=== PATIENT | female | born 1970 | race Caucasian/White ===

== ENCOUNTER 2017-03-06 16:52 | Emergency (ER) | payer MEDICARE, MEDICAID, SELFPAY | END 2017-03-06 17:55 | disposition home or self-care (01) | PROVIDERS: Emergency Provider Nurse Practitioner Family; Family Provider Family Medicine; Visit Provider Nurse Practitioner Family | DX: E11.42 Type 2 diabetes mellitus with diabetic polyneuropathy (principal); Z79.4 Long term (current) use of insulin; I10 Essential (primary) hypertension; F17.210 Nicotine dependence, cigarettes, uncomplicated | CPT/HCPCS: 99201 ==

== ENCOUNTER → 2017-10-26 08:20 | Outpatient (CLI) | payer MEDICARE, MEDICAID, SELFPAY ==
[2017-10-26 09:48] LABS: Hemoglobin A1C 9.4 % (0.0-7.0)
[2017-10-26 10:23] LABS: Alanine Aminotransferase 24 U/L (12-78); Albumin/Globulin Ratio 0.9 (1.1-1.8); Alkaline Phosphatase 140 U/L (46-116); Anion Gap 9.9 mEq/L (5-15); Aspartate Amino Transferase 17 U/L (15-37); Bilirubin,Total 0.4 mg/dL (0.2-1.0); Blood Urea Nitrogen 6 mg/dL (7-18); Calcium 8.6 mg/dL (8.5-10.1); Carbon Dioxide 32 mmol/L (21.0-32.0); Chloride 100 mmol/L (98-107); Cholesterol 161 mg/dL (140-200); Creatinine,Serum 0.89 mg/dL (0.55-1.02); Estimated Glomerular Filt Rate 69 ml/min (>60); GFR (African American) 83 ML/MIN (>60); Globulin 3.5 gm/dl (1.3-3.2); Glucose 300 mg/dL (74-106); HDL Cholesterol 27 mg/dL (29-89); LDL Cholesterol 107 mg/dL (0-130); Potassium 3.9 mmoL/L (3.5-5.1); Sodium 138 mmol/L (136-145); Thyroid Stimulating Hormone 3.15 uIU/ml (0.358-3.740); Total Protein,Serum 6.5 gm/dL (6.4-8.2); Triglycerides 135 mg/dL (30-200); VLDL Cholesterol 27 mg/dL (0-40)
== END ==
PROVIDERS: Visit Provider Physician Assistant
DX: E11.42 Type 2 diabetes mellitus with diabetic polyneuropathy (principal); Z13.29 Encounter for screening for other suspected endocrine disorder; I10 Essential (primary) hypertension; E78.2 Mixed hyperlipidemia
CPT/HCPCS: 36415; 80053; 80061; 83036; 84443

== ENCOUNTER → 2017-12-12 13:18 | Outpatient (CLI) | payer MEDICARE, MEDICAID, SELFPAY ==
--- NOTE | 2017-12-12 | CA_ITS ---
PROCEDURE: 2-D M-mode and color Doppler study INDICATIONS FOR THE TEST: Chest pain COPD Heart Murmur Tobacco Smoking+ Palpitations Fatigue Syncope Edema+ Hypertension+Diabetes Mellitus+ Rheumatic Fever SOB POOLE Obesity Hyperlipidemia+ Family History HD+ Additional History PATIENT INFORMATION HEIGHT: 55 WEIGHT: 146 GENDER: Female B/P: 130/70 2-D/M-MODE INTERPRETATION: 2-D MEASUREMENTS OBSERVED VALUES IN CMS Right Ventricular Dimension (RVDd) 2.5 Interventricular Septum (Thickness)(IVsd) 0.8 Left Ventricular Internal Dimensions(LVIDd) 5.8 Left Ventricular Posterior Wall (Thickness)(LVPWd) 0.6 Aortic Root 2.7 Aortic Cusp Separation 2.0 Left Atrial Dimensions (LAD) 4.2 2D 1. Left atrium is moderately enlarged, left ventricle is moderately dilated, there is severely reduced left ventricular systolic function, visually estimated ejection fraction approximately 20-25%, mildly inferolateral and posterolateral wall contractility is minimally, rest of the myocardial segments are markedly hypokinetic. 2. The right atrium and right ventricle are mildly enlarged with mild reduced contractility. 3. The aortic valve is minimally thickened and fibrosed. 4. The mitral and tricuspid valve leaflets are minimally thickened. 5. The pulmonic valve is poorly visualized. 6. No significant pericardial effusion noted. DOPPLER INTERROGATION: Doppler interrogation of the aortic, mitral and tricuspid valvular presence of moderate to severe mitral and severe tricuspid regurgitation, calculated right ventricular systolic pressure is 73 mmHg consistent with severe pulmonary hypertension, Doppler evidence of low cardiac output state seen, there is tall E wave with restrictive filling pattern suggestive of raised left ventricular end-diastolic pressure. CONCLUSION: 1. Moderately dilated left ventricle, severely reduced left ventricular systolic function, visually estimated ejection fraction approximately 20-25% with segmental wall motion abnormality described above. Doppler evidence of raised left ventricular end-diastolic pressure and low cardiac output state seen. 2. Moderate to severe mitral and severe tricuspid regurgitation, calculated right ventricular systolic pressure 73 mmHg consistent with severe pulmonary hypertension. 3. No significant pericardial effusion noted.
--- NOTE | 2017-12-12 13:27 | XR_ITS ---
XR chest 2V HISTORY: ITS.REASON: EDEMA ORDERING PHYSICIAN: Hugh Maldonado MD PATIENT AGE: 47 years COMPARISON: 04/09/2015 FINDINGS: There is cardiomegaly with mild pulmonary venous congestion consistent with mild CHF. Small right pleural effusion. Consolidation is present in the right lung base consistent with pneumonia. The left lung is clear. No acute bony anomalies. IMPRESSION: 1. CHF. 2. Right lower lobe pneumonia with small right effusion Significant findings called to Louann in Dr. Maldoando's office on 12/13/2017 11:48 AM.
== END ==
PROVIDERS: PCP Family Medicine; Visit Provider Family Medicine
DX: R60.1 Generalized edema (principal)
CPT/HCPCS: 71046; 93306

== ENCOUNTER → 2017-12-21 12:26 | Outpatient (CLI) | payer MEDICARE, MEDICAID, SELFPAY ==
[2017-12-21 15:21] LABS: Anion Gap 10.4 mEq/L (5-15); Blood Urea Nitrogen 10 mg/dL (7-18); Calcium 8.9 mg/dL (8.5-10.1); Carbon Dioxide 34 mmol/L (21.0-32.0); Chloride 96 mmol/L (98-107); Creatinine,Serum 0.91 mg/dL (0.55-1.02); Estimated Glomerular Filt Rate 67 ml/min (>60); GFR (African American) 81 ML/MIN (>60); Glucose 280 mg/dL (74-106); Potassium 3.4 mmoL/L (3.5-5.1); Sodium 137 mmol/L (136-145)
== END ==
PROVIDERS: PCP Family Medicine; Visit Provider Physician Assistant
DX: I42.9 Cardiomyopathy, unspecified (principal); I50.9 Heart failure, unspecified
CPT/HCPCS: 36415; 80048; 83880

== ENCOUNTER → 2018-01-12 12:17 | Outpatient (CLI) | payer MEDICARE, MEDICAID, SELFPAY ==
[2018-01-12 13:34] LABS: Anion Gap 10.7 mEq/L (5-15); Blood Urea Nitrogen 21 mg/dL (7-18); Calcium 9.4 mg/dL (8.5-10.1); Carbon Dioxide 31 mmol/L (21.0-32.0); Chloride 101 mmol/L (98-107); Creatinine,Serum 0.84 mg/dL (0.55-1.02); Estimated Glomerular Filt Rate 73 ml/min (>60); GFR (African American) 89 ML/MIN (>60); Glucose 267 mg/dL (74-106); Potassium 3.7 mmoL/L (3.5-5.1); Sodium 139 mmol/L (136-145)
== END ==
PROVIDERS: PCP Family Medicine; Visit Provider Internal Medicine Cardiovascular Disease
DX: I10 Essential (primary) hypertension (principal); I25.10 Atherosclerotic heart disease of native coronary artery without angina pectoris
CPT/HCPCS: 36415; 80048

== ENCOUNTER → 2018-02-26 13:13 | Outpatient (CLI) | payer MEDICARE, MEDICAID, SELFPAY ==
[2018-02-26 14:38] LABS: Anion Gap 12.9 mEq/L (5-15); Blood Urea Nitrogen 9 mg/dL (7-18); Carbon Dioxide 31 mmol/L (21.0-32.0); Chloride 98 mmol/L (98-107); Estimated Glomerular Filt Rate 54 ml/min (>60); GFR (African American) 65 ML/MIN (>60); Glucose 254 mg/dL (74-106); Potassium 3.9 mmoL/L (3.5-5.1); Sodium 138 mmol/L (136-145)
== END ==
PROVIDERS: Visit Provider Internal Medicine Cardiovascular Disease
DX: E11.9 Type 2 diabetes mellitus without complications (principal); E78.5 Hyperlipidemia, unspecified; I07.1 Rheumatic tricuspid insufficiency; I10 Essential (primary) hypertension; I25.10 Atherosclerotic heart disease of native coronary artery without angina pectoris; I25.5 Ischemic cardiomyopathy; I27.20 Pulmonary hypertension, unspecified; I34.0 Nonrheumatic mitral (valve) insufficiency; Z95.5 Presence of coronary angioplasty implant and graft
CPT/HCPCS: 36415; 80048

== ENCOUNTER → 2018-04-06 08:41 | Outpatient (CLI) | payer MEDICARE, SELFPAY ==
--- NOTE | 2018-04-06 08:44 | CA_ITS ---
PROCEDURE: 2-D M-mode and color Doppler study INDICATIONS FOR THE TEST: Chest pain COPD Heart Murmur Tobacco SmokingEX Palpitations Fatigue Syncope Edema HypertensionXDiabetes MellitusX Rheumatic Fever SOB POOLE Obesity HyperlipidemiaX Family History HD Additional History CM,CAD,PHTN PATIENT INFORMATION HEIGHT: 65 WEIGHT:136 GENDER: Female B/P:105/69 2-D/M-MODE INTERPRETATION: 2-D MEASUREMENTS OBSERVED VALUES IN CMS Right Ventricular Dimension (RVDd) 1.8 Interventricular Septum (Thickness)(IVsd) .7 Left Ventricular Internal Dimensions(LVIDd) 5.6 Left Ventricular Posterior Wall (Thickness)(LVPWd) .7 Aortic Root 3.1 Aortic Cusp Separation 1.8 Left Atrial Dimensions (LAD) 2.3 2D 1. Left atrium is mildly enlarged, left ventricle is normal size, mild concentric left ventricular hypertrophy, visually estimated ejection fraction 40-45%, there is abnormal septal motion. 2. The right atrium and right ventricle are normal size and contractility. 3. The aortic valve is minimally thickened and fibrosed. 4. Mitral and tricuspid valve leaflets are minimally thickened. 5. The pulmonic valve is poorly present. 6. No significant pericardial effusion noted. DOPPLER INTERROGATION: Doppler interrogation of the aortic, mitral and tricuspid valvular presence of mild mitral and tricuspid regurgitation, calculated right ventricular systolic pressure 38 mmHg consistent with mild pulmonary hypertension, grade 1 diastolic dysfunction seen without tissue Doppler evidence of raised left atrial pressure. CONCLUSION: 1. Mildly enlarged left atrium, normal left ventricular size, mild concentric left ventricular hypertrophy, visually estimated ejection fraction 40-45%, there is abnormal septal motion. Grade 1 diastolic dysfunction seen without tissue Doppler evidence of raised left atrial pressure. 2. Mild mitral and tricuspid regurgitation, calculated right ventricular systolic pressure 38 mmHg consistent with mild pulmonary hypertension. 3. No significant pericardial effusion noted.
== END ==
PROVIDERS: PCP Family Medicine; Visit Provider Internal Medicine Cardiovascular Disease
DX: I25.5 Ischemic cardiomyopathy (principal)
CPT/HCPCS: 93306

== ENCOUNTER 2018-10-02 22:53 | Inpatient (IN) ==
[2018-10-02 23:21] LABS: Basophils # 0.1 K/mm3 (0-0.2); Basophils % 0.3 % (0.1-2.0); Eosinophils % 0.2 % (0.1-12.0); Hematocrit 36.6 % (37.0-47.0); Hemoglobin 11.8 g/dL (12.2-16.2); Lymphocytes # 1.4 K/mm3 (0.7-4.5); Lymphocytes % 5.4 % (10-50); Mean Corpuscular HGB Conc 32.2 g/dL (31.8-35.4); Mean Corpuscular Volume 87.7 fl (81-99); Monocytes # 1.7 K/mm3 (0.1-1.0); Monocytes % 6.5 % (1.7-9.3); Neutrophils # 23.1 K/mm3 (1.8-7.8); Neutrophils % 87.7 % (37.0-80.0); Platelet Count 280 K/mm3 (142-424); Red Blood Count 4.17 M/mm3 (4.20-5.40); Red Cell Distribution Width 12.7 % (11.5-17.5); White Blood Count 26.4 K/mm3 (4.8-10.8)
[2018-10-02 23:36] LABS: Anion Gap 15.5 mEq/L (5-15); Calcium 8.6 mg/dL (8.5-10.1)
[2018-10-02 23:53] LABS: Lymphocytes % 8 % (10-50); Monocytes % 1 % (2-9); Neutrophils % 91 % (42-76); RBC Morphology Normal; Total Cells Counted 100
--- NOTE | 2018-10-03 00:07 | Emergency Department Note ---
ED Disposition Clinical Impression: Left shift, Hyponatremia, Type 1 diabetes mellitus with hyperglycemia, Non- compliant patient, Acute urinary tract infection Sepsis Qualifiers: Sepsis type: sepsis due to unspecified organism Qualified Code(s): A41.9 - Sepsis, unspecified organism Fever Qualifiers: Fever type: unspecified Qualified Code(s): R50.9 - Fever, unspecified Leukocytosis Qualifiers: Leukocytosis type: unspecified Qualified Code(s): D72.829 - Elevated white blood cell count, unspecified Disposition: Admitted As Inpatient Condition on Discharge: Fair (Stable) Referrals: Hugh Maldonado MD [Primary Care Provider] - Time of Disposition: :59 - Critical Care Critical Care Time: No Attestation: On 10/02/18, the high probability of a clinically significant, sudden or life threatening deterioration of the following system(s) required my full and direct attention, intervention and personal management. The time I documented below is in addition to time spent performing reported procedures but includes the following listed in this critical care notation. Medical Decision Making - Medical Records Medical records reviewed: Yes: I reviewed the patient's medical records. - [place] Inquiry Pt receiving controlled substance: No Edinson was queried for this patient: No Vital Signs: 10/02/18 22:55 10/02/18 23:24 10/02/18 23:54 Temperature 101.5 F H Temperature Source Oral Pulse Rate [Right Brachial] 127 H 121 H 115 H Respiratory Rate 17 Blood Pressure [Right Arm] 113/63 115/72 120/65 Blood Pressure Mean [Right Arm] 79 86 83 Blood Pressure Source [Right Arm] Automatic Cuff Automatic Cuff Automatic Cuff Blood Pressure Position [Right Arm] Sitting Sitting Sitting 02 Sat by Pulse Oximetry 95 Oxygen Delivery Method Room Air 10/03/18 00:15 10/03/18 00:24 10/03/18 00:30 Temperature Temperature Source Pulse Rate [Right Brachial] 114 H 117 H 117 H Respiratory Rate 18 Blood Pressure [Right Arm] 117/49 L 122/60 124/53 L Blood Pressure Mean [Right Arm] 71 80 76 Blood Pressure Source [Right Arm] Automatic Cuff Automatic Cuff Automatic Cuff Blood Pressure Position [Right Arm] Sitting Sitting Sitting 02 Sat by Pulse Oximetry 96 Oxygen Delivery Method Room Air 10/03/18 00:54 10/03/18 01:28 10/03/18 01:46 Temperature Temperature Source Pulse Rate [Right Brachial] 108 H 102 H 101 H Respiratory Rate 18 Blood Pressure [Right Arm] 102/54 L 90/47 L 97/50 L Blood Pressure Mean [Right Arm] 70 61 65 Blood Pressure Source [Right Arm] Automatic Cuff Automatic Cuff Automatic Cuff Blood Pressure Position [Right Arm] Sitting Sitting Sitting 02 Sat by Pulse Oximetry Oxygen Delivery Method Room Air 10/03/18 01:53 Temperature 99.6 F Temperature Source Oral Pulse Rate [Right Brachial] Respiratory Rate Blood Pressure [Right Arm] Blood Pressure Mean [Right Arm] Blood Pressure Source [Right Arm] Blood Pressure Position [Right Arm] 02 Sat by Pulse Oximetry Oxygen Delivery Method - Lab Data Lab results reviewed: Yes: I reviewed the patient's lab results. Lab Results 10/02/18 23:08: WBC 26.4 H*, RBC 4.17 L, Hgb 11.8 L, Hct 36.6 L, MCV 87.7, MCH 28.3, MCHC 32.2, RDW 12.7, Plt Count 280, MPV 8.0, Neut % (Auto) 87.7 H, Lymph % (Auto) 5.4 L, [facility] % (Auto) 6.5, Eos % (Auto) 0.2, Baso % (Auto) 0.3, Neut # (Auto) 23.1 H, Lymph # (Auto) 1.4, [facility] [facility] # (Auto) 1.7 H, Eos # (Auto) 0.0, Baso # (Auto) 0.1, Total Counted 100, Neutrophils % (Manual) 91 H, Lymphocytes % (Manual) 8 L, Monocytes % (Manual) 1 L, Platelet Estimate Normal, RBC Morphology Normal 10/02/18 23:08: Sodium 123 L, Potassium 3.5, Chloride 88 L, Carbon Dioxide 23, Anion Gap 15.5 H, BUN 16, Creatinine 2.07 H, Estimated Creat Clear 36, Estimated GFR 26 L, Est GFR ( Amer) 31 L, Glucose 550 H*, Calcium 8.6 10/02/18 23:08: Lactate 2.6 H 10/02/18 23:08: Troponin I < 0.02 10/03/18 00:00: Acetone Level None detected 10/03/18 00:25: Urine Color Yellow, Urine Appearance Clear, Urine pH 6.0, Ur Specific [place] 1.010, Urine Protein 2+, Urine Glucose (UA) 3+, Urine Ketones Negative, Urine Blood 2+, Urine Nitrate Negative, Urine Bilirubin Negative, Urine Urobilinogen 1.0, Ur Leukocyte Esterase 1+ A Result diagrams: 10/02/18 23:08 10/02/18 23:08 Orders (Tests/Meds): ED MEDICATIONS Generic Name Dose Route Start Last Admin Trade Name Nati PRN Reason Stop Dose Admin Sodium Chloride 1,000 mls @ 999 mls/hr 10/02/18 23:15 10/02/18 23:24 Sod Chlor 0.9% 1000ml Bag IV 10/03/18 00:15 999 mls/hr .Q1H1M QUEENIE Administration Vancomycin HCl 1,000 mg/ 250 mls @ 125 mls/hr 10/03/18 00:17 10/03/18 00:30 Sodium Chloride IV 10/03/18 02:16 125 mls/hr ONCE ONE Administration Piperacillin Sod/Tazobactam 50 mls @ 100 mls/hr 10/03/18 00:30 10/03/18 00:43 Sod 3.375 gm/ Sodium Chloride IV 10/17/18 00:29 100 mls/hr Q8H QUEENIE Administration Protocol Sodium Chloride 2,040 mls @ 1,020 mls/hr 10/03/18 00:19 10/03/18 00:35 Sod Chlor 0.9% 1000ml Bag 30 ml/kg infuse over 2 hr (2040 ml) 10/03/18 02:18 1,020 mls/hr IV Administration .Q2H ONE Protocol Discontinued Medications Generic Name Dose Route Start Last Admin Trade Name Nati PRN Reason Stop Dose Admin Acetaminophen 650 mg 10/03/18 00:05 10/03/18 00:10 Acetaminophen 325mg Tab PO 10/03/18 00:06 650 mg ONCE ONE Administration Insulin Human Regular 14 unit 10/03/18 00:07 10/03/18 00:10 Humulin R Insulin 100 Units/Ml 10ml Vial IVP 10/03/18 00:08 14 unit ONCE ONE Administration ORDERS Category Date Time Status CT head/brain wo con Stat Cat Scan 10/02/18 23:17 Taken CXR 2 view (NOT portable) [XR chest 2V] Stat Exams 10/02/18 23:29 Taken Procalcitonin Routine Lab 10/03/18 00:00 Received Troponin I Stat Lab 10/03/18 01:40 Received UA [Urinalysis and Microscopic] Stat Lab 10/03/18 00:25 Results Blood Culture Stat Micro 10/02/18 23:08 Received Urine Culture Stat Micro 10/03/18 00:29 Received - Radiology Data #1 Image(s): Chest Image Reviewed: Yes I reviewed the patient's radiology image Preliminary Findings: No Infiltrates Seen, Normal Heart Size No free air. - CT Data CT Scan: Head Time Received: 23:[address] Reviewed: Yes: I have viewed the radiologist's interpretation Preliminary Findings: Normal Lung Inflation Dick Findings Narrative: No acute intracranial abnormality. - ECG Data Tracing #1 I reviewed this ECG and interpreted as documented below: (EKG at 22:56 shows sinus tachycardia at 123 BPM, LAFB, LVH and septal infarct (age undetermined).) Medical Decision Narrative: 00:20 Pt evaluated. EKG and CXR reviewed. CT head w/o contrast ordered and report is pending. Glucose 550 mg/dl so Regular insulin 14 units IV ordered. WBC >25K and pt is tachycardic. Sepsis 30 ml/kg IV fluid bolus ordered and infusing. UA pending. Tylenol 650 mg PO ordered. Troponin added. Vancomycin 1 gm IVPB and Zosyn 3.375 gm IVPB ordered. Pt will need to be admitted. Pt and daughter aware. All questions answered at this point. 01:49 All labs, EKG, CXR, CT head report reviewed. Glucose improving. UA LE positive. BC x 2 and UC pending. Case discussed with Dr. Mallory and he has agreed to admit pt. I have discussed results of work up, diagnosis and care plan with pt and daughter. They understand, agree and all questions answered. General Adult HPI - General Chief complaint: Altered Mental Status Stated complaint: AMS Time Seen by Provider: 10/02/18 23:57 Mode of Arrival: Ambulatory Source of Information: Patient, Relative (daughter) Limitations: No Limitations Description of Symptoms (Recalled from ER Triage Doc. by RN): Daughter believed she was was having stroke symptoms; daughter states she "is confused on what she is trying to say.' Stated the pt has a hx of a CVA. Stated symptoms believed to have started last night. Pt believes she had a fever today and is a type II dm. Hx of Medrano's Palsy. - History of Present Illness HPI narrative: Pt is here in the ER from home via POV with daughter for evaluation c/o fever, malaise, decreased appetite. Daughter concerned she may have been slurring her words. Pt has a history of clotting disorder, PVD, IDDM, noncompliance with diet and medicines. She denies having headache, chest pain, sob, abdominal pain, nausea, vomiting, diarrhea. Pt did take usual home morning meds. She had not been following a diabetic diet. Pt apparently has an appt with PCP tomorrow as she thinks she may have a "kidney infection". - Related Data Home Medications Medication Instructions Recorded Confirmed Amitriptyline HCl 100 mg PO DAILY 10/22/17 10/02/18 Gabapentin [Gabapentin 400mg Cap] 600 mg PO TID 10/22/17 10/02/18 Glimepiride [Amaryl] 4 mg PO DAILY 10/22/17 10/02/18 Insulin Lispro [Humalog] 4 unit SQ DAILY 10/22/17 10/02/18 Aspirin [Aspirin 81mg chewable 81 mg PO DAILY 10/02/18 10/02/18 tab] Clopidogrel Bisulfate [Plavix 75mg 75 mg PO DAILY 10/02/18 10/02/18 Tab] Insulin Glargine,Hum.rec.anlog 8 unit SQ DAILY 10/02/18 10/02/18 [Lantus Insulin 100units/mL 10mL vial] Lisinopril [Lisinopril 2.5mg Tab] 2.5 mg PO QHS 10/02/18 10/02/18 Metoprolol Succinate 50 mg PO DAILY 10/02/18 10/02/18 Potassium 20 meq PO DAILY 10/02/18 10/02/18 Previous Rx's Medication Instructions Recorded atorvastatin 10 mg tablet 10 mg PO DAILY #30 tab 04/02/18 Allergies Allergy/AdvReac Type Severity Reaction Status Date / Time No Known Allergies Allergy Verified 10/02/18 23:01 [facility] History - Hepatitis A Screen Drug use history?: No High risk sexual behaviors?: No History of sexually transmitted infection?: No Currently employed?: No Childcare worker?: No Do you have indoor plumbing?: Yes Do you have electricity?: Yes Attestation statement:: This patient has been screened for Hepatitis A risk factors. I have reviewed the patient's past medical history: Yes Medical History: Reports:: Cerebrovascular Accident, Diabetes Mellitus Type 2 Denies:: Cancer, Diabetes Mellitus Type 1, Internal Pacemaker, MRSA, Seizures Other Surgeries: Yes: Cardiac Catheterization, Cholecystectomy, Coronary Stent, Tubal Ligation. 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.) Fractures: No Comment: Oral Sx - Social History Educational Level: Completed High School Smoking Status: Current every day smoker Tobacco Type: cigarettes # Packs/Day (cigarettes): 1 Alcohol Intake: never Substance Use Type: denies use Occupational Status: disabled Housing: house Family Hx:: Coronary Artery Disease, Heart Attack Comment: Mother- of [place] at 66 ROS Obtained: Yes All systems reviewed & no additional complaints - Constitutional Constitutional: Reports system reviewed and no additional complaints, except as docu, Reports as per HPI, Reports fever(s), Reports malaise - Eyes Eyes: Reports system reviewed and no additional complaints, except as docu - ENT Ears, Nose, Mouth, and Throat: Reports system reviewed and no additional complaints, except as docu - Cardiovascular Cardiovascular: Reports system reviewed and no additional complaints, except as docu, Reports as per HPI, Denies chest pain, Denies diaphoresis, Denies dyspnea, Denies leg edema - Respiratory Respiratory: Yes system reviewed and no additional complaints, except as docu, Yes as per HPI, No cough, No dyspnea, No dyspnea on exertion - Gastrointestinal Gastrointestingal: Reports: system reviewed and no additional complaints, except as docu, as per HPI. Denies: abdominal pain, constipation, diarrhea, nausea, vomiting - Genitourinary Female Genitourinary: Reports system reviewed and no additional complaints, except as docu, Reports as per HPI, Reports dysuria, Denies flank pain, Reports urinary frequency - Musculoskeletal Musculoskeletal: Reports system reviewed and no additional complaints, except as docu - Integumentary/Breasts Skin/Breast: Reports system reviewed and no additional complaints, except as docu - Neurologic Neurologic: Reports system reviewed and no additional complaints, except as docu, Reports as per HPI, Reports abnormal speech (Daughter says speech was slurred. No aphasia or dysarthria.), Denies unsteadiness, Denies dizziness, Denies focal weakness, Reports other (history of old ischemic stroke without sequelae) - Endocrine Endocrine: Reports system reviewed and no additional complaints, except as docu - Hematologic/Lymphatic Henatologic/Lymphatic: Reports system reviewed and no additional complaints, except as docu - Allergic/Immunologic Allergic/Immunologic: Reports system reviewed and no additional complaints, except as docu Physical Exam - General General appearance: alert, in no apparent distress - Head Head exam: atraumatic, normocephalic - Eye Eye exam: Present: PERRL, EOMI - ENT ENT exam: Present: normal oropharynx, mucous membranes moist - Neck Neck exam: Present: trachea midline - Chest Chest inspection: Present: normal inspection, symmetric chest wall rise - Respiratory Respiratory exam: Present: normal lung sounds bilaterally. Absent: respiratory distress, wheezes, stridor - Cardiovascular Cardiovascular exam: Present: tachycardia, normal heart sounds. Absent: systolic murmur, rubs, gallop, clicks, JVD - Abdominal Exam Abdominal exam: Present: soft, normal bowel sounds. Absent: tenderness, guarding, rebound - Extremities Exam Extremities exam: Present: full ROM, normal capillary refill, other (Right great toe amputation, old.). Absent: pedal edema - Back Exam Back exam: Absent: CVA tenderness (R), CVA tenderness (L), paraspinal tenderness, vertebral tenderness - Neurological Exam Neurological exam: Present: alert, oriented X3, CN II-XII intact - Psychiatric Psychiatric exam: Present: normal affect, normal mood - Skin Skin exam: Present: warm, dry, intact, normal color. Absent: rash
[2018-10-03 01:23] LABS: Microscopic, Urine URINE MICROSCOPIC (MICROSCOPIC)
[2018-10-03 01:26] LABS: Appearance,Urine CLEAR (Clear); Bilirubin,Urine Negative (Negative); Blood, Urine 2+ (Negative); Color,Urine YELLOW (Yellow); Glucose,Urine (UA) 3+ (Negative); Ketones,Urine Negative (Negative); Leukocyte Esterase,Urine 1+ (Negative); Protein,Urine 2+ (Negative)
[2018-10-03 01:58] LABS: WBC,Urine 20-50 #/hpf (0-3)
[2018-10-03 01:59] LABS: Amorphous Sediment,Urine 1+ /lpf; Bacteria,Urine 2+ /lpf; Mucus,Urine 2+ /lpf
[2018-10-03 07:38] LABS: Basophils # 0.1 K/mm3 (0-0.2); Basophils % 0.3 % (0.1-2.0); Eosinophils % 0.1 % (0.1-12.0); Hematocrit 33.4 % (37.0-47.0); Hemoglobin 10.8 g/dL (12.2-16.2); Lymphocytes # 1.2 K/mm3 (0.7-4.5); Lymphocytes % 5.3 % (10-50); Mean Corpuscular HGB Conc 32.4 g/dL (31.8-35.4); Mean Corpuscular Volume 88.7 fl (81-99); Mean Platelet Volume 7.6 fl (7.4-10.4); Monocytes # 1.2 K/mm3 (0.1-1.0); Monocytes % 5.7 % (1.7-9.3); Neutrophils # 19.2 K/mm3 (1.8-7.8); Neutrophils % 88.5 % (37.0-80.0); Platelet Count 233 K/mm3 (142-424); Red Blood Count 3.77 M/mm3 (4.20-5.40); Red Cell Distribution Width 12.7 % (11.5-17.5); White Blood Count 21.7 K/mm3 (4.8-10.8)
--- NOTE | 2018-10-03 07:43 | Pharmacy Consult Notes ---
[facility] Pharmacy VTE Monitoring - Patient Demographics Admission date: 10/03/18 Report Date: 10/03/18 Time: 07:31 Allergies/Adverse Reactions: Patient Allergies No Known Allergies Allergy (Verified 10/02/18 23:01) Height: 1.65 m Weight: 63.191 kg Patient Problems: Current Active Problems (Updated 10/03/18 @ 01:59 by Yoel Mckeon III DO) Sepsis (Acute) Fever (Acute) Leukocytosis (Acute) Left shift (Acute) Hyponatremia (Acute) Type 1 diabetes mellitus with hyperglycemia (Acute) Non-compliant patient (Acute) Acute urinary tract infection (Acute) - VTE Risk Labs: VTE Related Lab Results Hgb 11.8 g/dL (12.2-16.2) L 10/02/18 23:08 Hct 36.6 % (37.0-47.0) L 10/02/18 23:08 Plt Count 280 K/mm3 (142-424) 10/02/18 23:08 BUN 16 mg/dL (7-18) 10/02/18 23:08 Creatinine 2.07 mg/dL (0.55-1.02) H 10/02/18 23:08 Estimated Creat Clear 36 mL/min (50-200) 10/02/18 23:08 Was VTE Risk Assessment Performed: Yes VTE Score: 5 VTE Risk Level: Low Risk Clinical Trial Participant: No - Prophylaxis VTE Prophylaxis Ordered?: Yes Types of VTE Prophylaxis: TEDS Knee High
[2018-10-03 07:45] LABS: Albumin/Globulin Ratio 0.5 (1.1-1.8); Anion Gap 13.2 mEq/L (5-15); Bilirubin,Total 0.8 mg/dL (0.2-1.0); Calcium 7.9 mg/dL (8.5-10.1)
--- NOTE | 2018-10-03 08:17 | History & Physical Report ---
*Admission Date: 10/03/18 *Chief complaint: Low back pain and confusion *History of present illness: Ms. Marinelli is a 48-year-old female with a history of CVA, migraines, type 2 diabetes, history of sepsis due to osteomyelitis of toe, and hypertension who began having low back pain approximately 2 days ago. Her daughter states she seemed confused and aggravated. They were worried she was having another stroke, therefore they made her come to the emergency room. In the ER, her white blood cell count was found to be 26.4 and her lactic acid was elevated. Her sodium and chloride were low, her renal function was elevated, and her glucose was over 500 but no acetone was detected. She was admitted with a d iagnosis of sepsis and leukocytosis. This a.m. she states she does feel better. Her back pain has resolved. Her daughter states her mental status seems to be better today. [facility] History I have reviewed the patient's past medical history: Yes Medical History: Reports:: Coronary Artery Disease, Cerebrovascular Accident, Diabetes Mellitus Type 2, Hyperlipidemia, Hypertension, Peripheral Vascular Disease Denies:: Cancer, Diabetes Mellitus Type 1, Internal Pacemaker, MRSA, Seizures *Have you ever received a pneumonia vaccine?: No *Have you received a flu vaccine this season?: No Other Surgeries: Yes: Cardiac Catheterization, Cholecystectomy, Coronary Stent, Tubal Ligation. 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.) Fractures: No - *Social History Educational Level: Completed High School Smoking Status: Current every day smoker Tobacco Type: cigarettes # Packs/Day (cigarettes): 1 Alcohol Intake: never Substance Use Type: denies use *Occupational Status:: disabled Housing: house Household Members: children *Travel in the last 8 weeks: None - Psychiatric History Expresses thoughts of harming self/others: None, Vague Suicide Plan Description: No Plan Family Hx:: Asthma, Coronary Artery Disease, Diabetes, Heart Attack Review of Systems - Constitutional Reports chills, Reports fever(s), Reports weakness - Eyes Denies blurry vision, Denies double vision - ENT Reports nasal congestion, Denies sore throat - *Cardiovascular Denies chest pain, Denies shortness of breath, Denies rapid, pounding, or i rregular heartbeat - *Respiratory Denies cough, Denies shortness of breath - *Gastrointestinal Denies abdominal pain, Denies loose stools, Denies nausea, Denies vomiting - *Genitourinary Denies difficulty urinating, Denies painful urination - *Musculoskeletal Reports back pain (has resolvd), Denies joint pain - *Neurologic Reports abnormal speech (Daughter says speech was slurred. No aphasia or dysarthria.), Reports headache(s), Reports weakness, Reports other (history of old ischemic stroke without sequelae), Denies unsteadiness, Denies dizziness, Denies localized weakness, Denies dizziness Meds Home Medications Medication Instructions Recorded Confirmed Type Amitriptyline HCl 100 mg PO DAILY 10/22/17 10/02/18 History Gabapentin [Gabapentin 400mg Cap] 600 mg PO TID 10/22/17 10/02/18 History Glimepiride [Amaryl] 4 mg PO DAILY 10/22/17 10/02/18 History Insulin Lispro [Humalog] 4 unit SQ DAILY 10/22/17 10/02/18 History atorvastatin 10 mg tablet 10 mg PO DAILY #30 tab 04/02/18 10/02/18 Rx Aspirin [Aspirin 81mg chewable 81 mg PO DAILY 10/02/18 10/02/18 History tab] Clopidogrel Bisulfate [Plavix 75mg 75 mg PO DAILY 10/02/18 10/02/18 History Tab] Insulin Glargine,Hum.rec.anlog 8 unit SQ DAILY 10/02/18 10/02/18 History [Lantus Insulin 100units/mL 10mL vial] Lisinopril [Lisinopril 2.5mg Tab] 2.5 mg PO QHS 10/02/18 10/02/18 History Metoprolol Succinate 50 mg PO DAILY 10/02/18 10/02/18 History Potassium 20 meq PO DAILY 10/02/18 10/02/18 History Allergies Allergy/AdvReac Type Severity Reaction Status Date / Time No Known Allergies Allergy Verified 10/02/18 23:01 Exam Vital signs and Labs for Last 24 Hours: Temp Pulse Resp BP Pulse Ox 99.1 F 108 H 20 110/59 L 94 L 10/03/18 07:51 10/03/18 07:51 10/03/18 07:51 10/03/18 07:51 10/03/18 07:51 Laboratory Results - last 24 hr 10/02/18 23:08: WBC 26.4 H*, RBC 4.17 L, Hgb 11.8 L, Hct 36.6 L, MCV 87.7, MCH 28.3, MCHC 32.2, RDW 12.7, Plt Count 280, MPV 8.0, Neut % (Auto) 87.7 H, Lymph % (Auto) 5.4 L, [place] % (Auto) 6.5, Eos % (Auto) 0.2, Baso % (Auto) 0.3, Neut # (Auto) 23.1 H, Lymph # (Auto) 1.4, [place] # (Auto) 1.7 H, Eos # (Auto) 0.0, Baso # (Auto) 0.1, Total Counted 100, Neutrophils % (Manual) 91 H, Lymphocytes % (Manual) 8 L, Monocytes % (Manual) 1 L, Platelet Estimate Normal, RBC Morphology Normal 10/02/18 23:08: Sodium 123 L, Potassium 3.5, Chloride 88 L, Carbon Dioxide 23, Anion Gap 15.5 H, BUN 16, Creatinine 2.07 H, Estimated Creat Clear 36, Estimated GFR 26 L, Est GFR ( Amer) 31 L, Glucose 550 H*, Calcium 8.6 10/02/18 23:08: Lactate 2.6 H 10/02/18 23:08: Troponin I < 0.02 10/03/18 00:00: Acetone Level None detected 10/03/18 00:25: Urine Color Yellow, Urine Appearance Clear, Urine pH 6.0, Ur Specific [place] 1.010, Urine Protein 2+, Urine Glucose (UA) 3+, Urine Ketones Negative, Urine Blood 2+, Urine Nitrate Negative, Urine Bilirubin Negative, Urine Urobilinogen 1.0, Ur Leukocyte Esterase 1+ A, Urine RBC 5-10, Urine WBC 20-50, Ur Squamous Epith Cells 3-5, Amorphous Sediment 1+, Urine Bacteria 2+, Urine Mucus 2+ 10/03/18 01:40: Troponin I < 0.02 10/03/18 03:30: Lactate 0.7 10/03/18 06:32: POC Glucose 229 H 10/03/18 07:00: Troponin I < 0.02 10/03/18 07:00: WBC 21.7 H*, RBC 3.77 L, Hgb 10.8 L, Hct 33.4 L, MCV 88.7, MCH 28.7, MCHC 32.4, RDW 12.7, Plt Count 233, MPV 7.6, Neut % (Auto) 88.5 H, Lymph % (Auto) 5.3 L, [place] % (Auto) 5.7, Eos % (Auto) 0.1, Baso % (Auto) 0.3, Neut # (Auto) 19.2 H, Lymph # (Auto) 1.2, [place] # (Auto) 1.2 H, Eos # (Auto) 0.0, Baso # (Auto) 0.1 10/03/18 07:00: Sodium 134 L, Potassium 3.2 L, Chloride 100, Carbon Dioxide 24, Anion Gap 13.2, BUN 15, Creatinine 1.67 H, Estimated Creat Clear 42, Estimated GFR 33 L, Est GFR ( Amer) 40 L D, Glucose 227 H D, Calcium 7.9 L, Total Bilirubin 0.8, AST 12 L, ALT 12, Alkaline Phosphatase 116, Total Protein 6.0 L, Albumin 2.0 L, Globulin 4.0 H, Albumin/Globulin Ratio 0.5 L I & O for Last 24 hours: Intake & Output 09/30/18 10/01/18 10/02/18 10/03/18 11:59 11:59 11:59 11:59 Intake Total 2019 Output Total 200 / 200 Balance 1820 / 1820 Weight 139 lb 5 oz - Constitutional no acute distress - *Routine HEENT Exam Head: Present: normocephalic Eye: Present: EOMI, PERRL ENT: Present: mucous membranes dry - *Routine Neck Exam Present: supple. Absent: lymphadenopathy - *Routine Respiratory Exam Present: CTA bilaterally - *Routine Cardiovascular Exam Present: RRR - *Routine Abdominal Exam Present: soft, normoactive bowel sounds. Absent: tenderness - *Routine Extremities Exam Absent: cyanosis, clubbing, edema - *Routine Skin Exam Present: warm. Absent: rash - *Routine Neurological Exam Present: alert, oriented X3 H&P: Result - Impressions Head CT and chest x-ray showed nothing acute Assessment and Plan (1) Acute urinary tract infection Current visit: Yes Status: Acute Category: Medical Code(s): N39.0 - Urinary tract infection, site not specified (2) Fever Current visit: Yes Status: Acute Qualifiers: Fever type: unspecified Qualified Code(s): R50.9 - Fever, unspecified Category: Medical Code(s): R50.9 - Fever, unspecified (3) Hyponatremia Current visit: Yes Status: Acute Category: Medical Code(s): E87.1 - Hypo- osmolality and hyponatremia (4) Leukocytosis Current visit: Yes Status: Acute Qualifiers: Leukocytosis type: unspecified Qualified Code(s): D72.829 - Elevated white blood cell count, unspecified Category: Medical Code(s): D72.829 - Elevated white blood cell count, unspecified (5) Sepsis Current visit: Yes Status: Acute Qualifiers: Sepsis type: sepsis due to unspecified organism Qualified Code(s): A41.9 - Sepsis, unspecified organism Category: Medical Code(s): A41.9 - Sepsis, unspecified organism (6) CAD (coronary artery disease) Current visit: No Status: Chronic Qualifiers: Coronary Disease-Associated Artery/Lesion type: [place] artery [place] vs. transplanted heart: [place] heart Associated angina: without angina Qualified Code(s): I25.10 - Atherosclerotic heart disease of [place] coronary artery without angina pectoris Category: Medical Code(s): I25.10 - Atherosclerotic heart disease of [place] coronary artery without angina pectoris (7) HHD (hypertensive heart disease) Current visit: No Status: Chronic Qualifiers: Heart failure presence: with heart failure Heart failure type: systolic Heart failure chronicity: chronic Qualified Code(s): I11.0 - Hypertensive heart disease with heart failure; I50.22 - Chronic systolic (congestive) heart failure Category: Medical Code(s): I11.9 - Hypertensive heart disease without heart failure (8) HLD (hyperlipidemia) Current visit: No Status: Chronic Qualifiers: Hyperlipidemia type: mixed hyperlipidemia Qualified Code(s): E78.2 - Mixed hyperlipidemia Category: Medical Code(s): E78.5 - Hyperlipidemia, unspecified (9) IDDM (insulin dependent diabetes mellitus) Current visit: Yes Status: Chronic Category: Medical Code(s): E11.9 - Type 2 diabetes mellitus without complications; 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 Her glucose has improved as has her sodium, chloride and renal function. Her back pain has resolved. Her potassium is low this morning, will start replacement. Urine and blood cultures are still pending. We will continue current regimen and await culture results.
--- NOTE | 2018-10-03 08:25 | Pharmacy Consult Notes ---
- Pharmacy Consult Date: 10/03/18 Time: 08:24 Referring provider: DR. MURRY Reason for Consult:: VANCOMYCIN DOSING Allergies and ADEs:: Allergies Allergy/AdvReac Type Severity Reaction Status Date / Time No Known Allergies Allergy Verified 10/02/18 23:01 Home Medications:: Home Medications Medication Instructions Recorded Confirmed Type Amitriptyline HCl 100 mg PO DAILY 10/22/17 10/02/18 History Gabapentin [Gabapentin 400mg Cap] 600 mg PO TID 10/22/17 10/02/18 History Glimepiride [Amaryl] 4 mg PO DAILY 10/22/17 10/02/18 History Insulin Lispro [Humalog] 4 unit SQ DAILY 10/22/17 10/02/18 History atorvastatin 10 mg tablet 10 mg PO DAILY #30 tab 04/02/18 10/02/18 Rx Aspirin [Aspirin 81mg chewable 81 mg PO DAILY 10/02/18 10/02/18 History tab] Clopidogrel Bisulfate [Plavix 75mg 75 mg PO DAILY 10/02/18 10/02/18 History Tab] Insulin Glargine,Hum.rec.anlog 8 unit SQ DAILY 10/02/18 10/02/18 History [Lantus Insulin 100units/mL 10mL vial] Lisinopril [Lisinopril 2.5mg Tab] 2.5 mg PO QHS 10/02/18 10/02/18 History Metoprolol Succinate 50 mg PO DAILY 10/02/18 10/02/18 History Potassium 20 meq PO DAILY 10/02/18 10/02/18 History Height: 1.65 m Weight: 63.191 kg Laboratory Results:: Laboratory Results - last 24 hr 10/02/18 23:08: WBC 26.4 H*, RBC 4.17 L, Hgb 11.8 L, Hct 36.6 L, MCV 87.7, MCH 28.3, MCHC 32.2, RDW 12.7, Plt Count 280, MPV 8.0, Neut % (Auto) 87.7 H, Lymph % (Auto) 5.4 L, [place] % (Auto) 6.5, Eos % (Auto) 0.2, Baso % (Auto) 0.3, Neut # (Auto) 23.1 H, Lymph # (Auto) 1.4, [place] # (Auto) 1.7 H, Eos # (Auto) 0.0, Baso # (Auto) 0.1, Total Counted 100, Neutrophils % (Manual) 91 H, Lymphocytes % (Manual) 8 L, Monocytes % (Manual) 1 L, Platelet Estimate Normal, RBC Morphology Normal 10/02/18 23:08: Sodium 123 L, Potassium 3.5, Chloride 88 L, Carbon Dioxide 23, Anion Gap 15.5 H, BUN 16, Creatinine 2.07 H, Estimated Creat Clear 36, Estimated GFR 26 L, Est GFR ( Amer) 31 L, Glucose 550 H*, Calcium 8.6 10/02/18 23:08: Lactate 2.6 H 10/02/18 23:08: Troponin I < 0.02 10/03/18 00:00: Acetone Level None detected 10/03/18 00:25: Urine Color Yellow, Urine Appearance Clear, Urine pH 6.0, Ur Specific [place] 1.010, Urine Protein 2+, Urine Glucose (UA) 3+, Urine Ketones Negative, Urine Blood 2+, Urine Nitrate Negative, Urine Bilirubin Negative, Urine Urobilinogen 1.0, Ur Leukocyte Esterase 1+ A, Urine RBC 5-10, Urine WBC 20-50, Ur Squamous Epith Cells 3-5, Amorphous Sediment 1+, Urine Bacteria 2+, Urine Mucus 2+ 10/03/18 01:40: Troponin I < 0.02 10/03/18 03:30: Lactate 0.7 10/03/18 06:32: POC Glucose 229 H 10/03/18 07:00: Troponin I < 0.02 10/03/18 07:00: WBC 21.7 H*, RBC 3.77 L, Hgb 10.8 L, Hct 33.4 L, MCV 88.7, MCH 28.7, MCHC 32.4, RDW 12.7, Plt Count 233, MPV 7.6, Neut % (Auto) 88.5 H, Lymph % (Auto) 5.3 L, [place] % (Auto) 5.7, Eos % (Auto) 0.1, Baso % (Auto) 0.3, Neut # (Auto) 19.2 H, Lymph # (Auto) 1.2, [place] # (Auto) 1.2 H, Eos # (Auto) 0.0, Baso # (Auto) 0.1 10/03/18 07:00: Sodium 134 L, Potassium 3.2 L, Chloride 100, Carbon Dioxide 24, Anion Gap 13.2, BUN 15, Creatinine 1.67 H, Estimated Creat Clear 42, Estimated GFR 33 L, Est GFR ( Amer) 40 L D, Glucose 227 H D, Calcium 7.9 L, Total Bilirubin 0.8, AST 12 L, ALT 12, Alkaline Phosphatase 116, Total Protein 6.0 L, Albumin 2.0 L, Globulin 4.0 H, Albumin/Globulin Ratio 0.5 L Medical History: Reports:: Coronary Artery Disease, Cerebrovascular Accident, Diabetes Mellitus Type 2, Hyperlipidemia, Hypertension, Peripheral Vascular Disease Denies:: Cancer, Diabetes Mellitus Type 1, Internal Pacemaker, MRSA, Seizures Assessment and Plan (1) IDDM (insulin dependent diabetes mellitus) Current visit: Yes Status: Acute Category: Medical Code(s): E11.9 - Type 2 diabetes mellitus without complications; Z79.4 - tank terminal gauger (current) use of insulin (2) Acute urinary tract infection Current visit: Yes Status: Acute Category: Medical Code(s): N39.0 - Urinary tract infection, site not specified (3) Fever Current visit: Yes Status: Acute Qualifiers: Qualified Code(s): R50.9 - Fever, unspecified Category: Medical Code(s): R50.9 - Fever, unspecified (4) Hyponatremia Current visit: Yes Status: Acute Category: Medical Code(s): E87.1 - Hypo- osmolality and hyponatremia (5) Leukocytosis Current visit: Yes Status: Acute Qualifiers: Qualified Code(s): D72.829 - Elevated white blood cell count, unspecified Category: Medical Code(s): D72.829 - Elevated white blood cell count, unspecified (6) Non-compliant patient Current visit: Yes Status: Acute Category: Medical Code(s): Z91.19 - Patient's noncompliance with other medical treatment and regimen (7) Sepsis Current visit: Yes Status: Acute Qualifiers: Qualified Code(s): A41.9 - Sepsis, unspecified organism Category: Medical Code(s): A41.9 - Sepsis, unspecified organism (8) CAD (coronary artery disease) Current visit: No Status: Chronic Qualifiers: Qualified Code(s): I25.10 - Atherosclerotic heart disease of [place] coronary artery without angina pectoris Category: Medical Code(s): I25.10 - Atherosclerotic heart disease of [place] coronary artery without angina pectoris (9) HHD (hypertensive heart disease) Current visit: No Status: Chronic Qualifiers: Qualified Code(s): I11.0 - Hypertensive heart disease with heart failure; I50.22 - Chronic systolic (congestive) heart failure Category: Medical Code(s): I11.9 - Hypertensive heart disease without heart failure (10) HLD (hyperlipidemia) Current visit: No Status: Chronic Qualifiers: Qualified Code(s): E78.2 - Mixed hyperlipidemia Category: Medical Code(s): E78.5 - Hyperlipidemia, unspecified - Assessment and plan all Dx Assessment and Plan for all problems:: BASED ON PATIENT FACTORS, RECOMMEND VANCOMYCIN 1 GM IV Q24H. WILL OBTAIN VANCOMYCIN TROUGH LEVEL PRIOR TO 3RD DOSE. PHARMACY WILL FOLLOW DAILY AND ADJUST APPROPRIATE.
--- NOTE | 2018-10-03 18:55 | Progress Note ---
Internal Medicine - PN: Subj *Date: 10/03/18 *Time: 18:51 Interval history: Apparently the patient had been seen by cardiology and switched to Metoprolol succinate from carvedilol. Not sure of rational. She will receive her Carvedilol dose this evening, we will decide tomorrow which B-silverio to continue. Carvedilol could benefit kidneys, but compliance (bid vs qday) may be an issue. BP has run low today. HR has decreased from 120's to 110. Will also d/c Amlodipine pending assessment in AM Exam Vital signs and Labs for Last 24 Hours: Temp Pulse Resp BP Pulse Ox 99.7 F H 110 H 22 97/59 L 94 L 10/03/18 16:00 10/03/18 16:00 10/03/18 16:00 10/03/18 16:00 10/03/18 16:00 Laboratory Results - last 24 hr 10/02/18 22:52: POC Glucose 568 H* 10/02/18 23:08: WBC 26.4 H*, RBC 4.17 L, Hgb 11.8 L, Hct 36.6 L, MCV 87.7, MCH 28.3, MCHC 32.2, RDW 12.7, Plt Count 280, MPV 8.0, Neut % (Auto) 87.7 H, Lymph % (Auto) 5.4 L, [place] % (Auto) 6.5, Eos % (Auto) 0.2, Baso % (Auto) 0.3, Neut # (Auto) 23.1 H, Lymph # (Auto) 1.4, [place] # (Auto) 1.7 H, Eos # (Auto) 0.0, Baso # (Auto) 0.1, Total Counted 100, Neutrophils % (Manual) 91 H, Lymphocytes % (Manual) 8 L, Monocytes % (Manual) 1 L, Platelet Estimate Normal, RBC Morphology Normal 10/02/18 23:08: Sodium 123 L, Potassium 3.5, Chloride 88 L, Carbon Dioxide 23, Anion Gap 15.5 H, BUN 16, Creatinine 2.07 H, Estimated Creat Clear 36, Estimated GFR 26 L, Est GFR ( Amer) 31 L, Glucose 550 H*, Calcium 8.6 10/02/18 23:08: Lactate 2.6 H 10/02/18 23:08: Troponin I < 0.02 10/03/18 00:00: Acetone Level None detected 10/03/18 00:25: Urine Color Yellow, Urine Appearance Clear, Urine pH 6.0, Ur Specific [place] 1.010, Urine Protein 2+, Urine Glucose (UA) 3+, Urine Ketones Negative, Urine Blood 2+, Urine Nitrate Negative, Urine Bilirubin Negative, Urine Urobilinogen 1.0, Ur Leukocyte Esterase 1+ A, Urine RBC 5-10, Urine WBC 20-50, Ur Squamous Epith Cells 3-5, Amorphous Sediment 1+, Urine Bacteria 2+, Urine Mucus 2+ 10/03/18 01:40: Troponin I < 0.02 10/03/18 03:30: Lactate 0.7 10/03/18 06:32: POC Glucose 229 H 10/03/18 07:00: Troponin I < 0.02 10/03/18 07:00: WBC 21.7 H*, RBC 3.77 L, Hgb 10.8 L, Hct 33.4 L, MCV 88.7, MCH 28.7, MCHC 32.4, RDW 12.7, Plt Count 233, MPV 7.6, Neut % (Auto) 88.5 H, Lymph % (Auto) 5.3 L, [place] % (Auto) 5.7, Eos % (Auto) 0.1, Baso % (Auto) 0.3, Neut # (Auto) 19.2 H, Lymph # (Auto) 1.2, [place] # (Auto) 1.2 H, Eos # (Auto) 0.0, Baso # (Auto) 0.1 10/03/18 07:00: Sodium 134 L, Potassium 3.2 L, Chloride 100, Carbon Dioxide 24, Anion Gap 13.2, BUN 15, Creatinine 1.67 H, Estimated Creat Clear 42, Estimated GFR 33 L, Est GFR ( Amer) 40 L D, Glucose 227 H D, Calcium 7.9 L, Total Bilirubin 0.8, AST 12 L, ALT 12, Alkaline Phosphatase 116, Total Protein 6.0 L, Albumin 2.0 L, Globulin 4.0 H, Albumin/Globulin Ratio 0.5 L 10/03/18 07:00: Digoxin < 0.20 L 10/03/18 11:12: POC Glucose 268 H I & O for Last 24 hours: Intake & Output 10/01/18 10/02/18 10/03/18 10/04/18 11:59 11:59 11:59 11:59 Intake Total 2019 240 / 240 Output Total 200 / 200 200 / 200 Balance 1820 / 1820 40 / 40 Weight 139 lb 5 oz 139 lb 5 oz Microbiology Reports for the Last 24 Hours: Microbiology 10/02/18 23:08 Blood Blood Culture - Preliminary 10/02/18 23:08 Blood Blood Culture - Preliminary Assessment and Plan (1) Acute urinary tract infection Current visit: Yes Status: Acute Category: Medical Code(s): N39.0 - Urinary tract infection, site not specified (2) Fever Current visit: Yes Status: Acute Qualifiers: Fever type: unspecified Qualified Code(s): R50.9 - Fever, unspecified Category: Medical Code(s): R50.9 - Fever, unspecified (3) Hyponatremia Current visit: Yes Status: Acute Category: Medical Code(s): E87.1 - Hypo- osmolality and hyponatremia (4) Leukocytosis Current visit: Yes Status: Acute Qualifiers: Leukocytosis type: unspecified Qualified Code(s): D72.829 - Elevated white blood cell count, unspecified Category: Medical Code(s): D72.829 - Elevated white blood cell count, unspecified (5) Sepsis Current visit: Yes Status: Acute Qualifiers: Sepsis type: sepsis due to unspecified organism Qualified Code(s): A41.9 - Sepsis, unspecified organism Category: Medical Code(s): A41.9 - Sepsis, unspecified organism (6) CAD (coronary artery disease) Current visit: No Status: Chronic Qualifiers: Coronary Disease-Associated Artery/Lesion type: [place] artery [place] vs. transplanted heart: [place] heart Associated angina: without angina Qualified Code(s): I25.10 - Atherosclerotic heart disease of [place] coronary artery without angina pectoris Category: Medical Code(s): I25.10 - Atherosclerotic heart disease of [place] coronary artery without angina pectoris (7) HHD (hypertensive heart disease) Current visit: No Status: Chronic Qualifiers: Heart failure presence: with heart failure Heart failure type: systolic Heart failure chronicity: chronic Qualified Code(s): I11.0 - Hypertensive heart disease with heart failure; I50.22 - Chronic systolic (congestive) heart failure Category: Medical Code(s): I11.9 - Hypertensive heart disease without heart failure (8) HLD (hyperlipidemia) Current visit: No Status: Chronic Qualifiers: Hyperlipidemia type: mixed hyperlipidemia Qualified Code(s): E78.2 - Mixed hyperlipidemia Category: Medical Code(s): E78.5 - Hyperlipidemia, unspecified (9) IDDM (insulin dependent diabetes mellitus) Current visit: Yes Status: Chronic Category: Medical Code(s): E11.9 - Type 2 diabetes mellitus without complications; Z79.4 - termite inspector (current) use of insulin (10) Non-compliant patient Current visit: Yes Status: Chronic Category: Medical Code(s): Z91.19 - Patient's noncompliance with other medical treatment and regimen
[2018-10-04 07:26] LABS: Basophils % 0.2 % (0.1-2.0); Eosinophils % 0.2 % (0.1-12.0); Hematocrit 32.5 % (37.0-47.0); Hemoglobin 10.4 g/dL (12.2-16.2); Lymphocytes # 0.8 K/mm3 (0.7-4.5); Mean Corpuscular Volume 88.8 fl (81-99); Monocytes # 0.8 K/mm3 (0.1-1.0); Neutrophils # 13.5 K/mm3 (1.8-7.8); Neutrophils % 89.6 % (37.0-80.0); Platelet Count 217 K/mm3 (142-424); Red Blood Count 3.66 M/mm3 (4.20-5.40); White Blood Count 15.1 K/mm3 (4.8-10.8)
[2018-10-04 07:27] LABS: Anion Gap 13.5 mEq/L (5-15); Calcium 8.4 mg/dL (8.5-10.1)
--- NOTE | 2018-10-04 07:57 | Consult Report ---
History of Present Illness Consult date: 10/04/18 Requesting physician: Hugh Maldonado Chief complaint: confusion Additional Medical History:: 1. Coronary artery disease A. Echo, 11/2017, 2D 1. Left atrium is moderately enlarged, left ventricle is moderately dilated, there is severely reduced left ventricular systolic function, visually estimated ejection fraction approximately 20-25%, mildly inferolateral and posterolateral wall contractility is minimally, rest of the myocardial segments are markedly hypokinetic. 2. The right atrium and right ventricle are mildly enlarged with mild reduced contractility. 3. The aortic valve is minimally thickened and fibrosed. 4. The mitral and tricuspid valve leaflets are minimally thickened. 5. The pulmonic valve is poorly visualized. 6. No significant pericardial effusion noted. DOPPLER INTERROGATION: Doppler interrogation of the aortic, mitral and tricuspid valvular presence of moderate to severe mitral and severe tricuspid regurgitation, calculated right ventricular systolic pressure is 73 mmHg consistent with severe pulmonary hypertension, Doppler evidence of low cardiac output state seen, there is tall E wave with restrictive filling pattern suggestive of raised left ventricular end-diastolic pressure. CONCLUSION: 1. Moderately dilated left ventricle, severely reduced left ventricular systolic function, visually estimated ejection fraction approximately 20-25% with segmental wall motion abnormality described above. Doppler evidence of raised left ventricular end-diastolic pressure and low cardiac output state seen. 2. Moderate to severe mitral and severe tricuspid regurgitation, calculated right ventricular systolic pressure 73 mmHg consistent with severe pulmonary hypertension. 3. No significant pericardial effusion noted. [facility], 12/2017, ANGIOGRAPHIC RESULTS: 1. The left main artery has distal 10-20% stenosis 2. The left anterior descending artery is normal in the proximal segment however has sequential 90 and 99% mid vessel stenoses. The first diagonal artery is a medium to large vessel and has proximal 20% stenoses. The second diagonal artery is proximally occluded and fills distally via left to left collaterals. The entire caliber of the LAD is extremely small 3. The ramus intermedius is a large vessel and has a proximal 70-80% concentric stenosis 4. The circumflex artery is a nondominant vessel and and has proximal 10- 20% stenoses with 40% stenoses in the first obtuse marginal artery 5. The right coronary artery is a dominant vessel and has a proximal eccentric greater than 80% fingerlike plaque followed by mid vessel 50% stenosis 6. The WOR[place] ventriculogram reveals left ventricular dysfunction estimated at 25-30%. The entire anterior and apical wall are severely hypokinetic. Inferior wall is moderately hypokinetic 7. The left ventricular end-diastolic pressure 20 IMPRESSION: 1. Severe three-vessel coronary artery disease as described above 2. Successful stenting of the mid LAD critical disease reduced to 0% with 2 drug-eluting stents 3. Successful stenting of the proximal ramus intermedius severe disease reduced to 0% with 1 drug-eluting stent 4. Successful stenting the proximal to mid dominant right coronary artery severe disease reduced to 0% with 1 drug-eluting stent 5. Left ventricular dysfunction with large regional wall motion abnormality 6. Elevated LVEDP PLAN: 1. Continue aspirin Plavix 2. Standard therapy for systolic heart failure 3. LDL less than 55 4. In 90 days patient should be reevaluated with echocardiography to determine if she is a candidate for a ICD placement 5. Avoidance of tobacco products 6. Cardiac rehabilitation C. Echo, 03/2018, 2D 1. Left atrium is mildly enlarged, left ventricle is normal size, mild co ncentric left ventricular hypertrophy, visually estimated ejection fraction 40-45%, there is abnormal septal motion. 2. The right atrium and right ventricle are normal size and contractility. 3. The aortic valve is minimally thickened and fibrosed. 4. Mitral and tricuspid valve leaflets are minimally thickened. 5. The pulmonic valve is poorly present. 6. No significant pericardial effusion noted. DOPPLER INTERROGATION: Doppler interrogation of the aortic, mitral and tricuspid valvular presence of mild mitral and tricuspid regurgitation, calculated right ventricular systolic pressure 38 mmHg consistent with mild pulmonary hypertension, grade 1 diastolic dysfunction seen without tissue Doppler evidence of raised left atrial pressure. CONCLUSION: 1. Mildly enlarged left atrium, normal left ventricular size, mild concentric left ventricular hypertrophy, visually estimated ejection fraction 40-45%, there is abnormal septal motion. Grade 1 diastolic dysfunction seen without tissue Doppler evidence of raised left atrial pressure. 2. Mild mitral and tricuspid regurgitation, calculated right ventricular systolic pressure 38 mmHg consistent with mild pulmonary hypertension. 3. No significant pericardial effusion noted 2. Diabetes mellitus, type II 3. Hypertension 4. Hyperlipidemia 5. Previous CVA with left-sided deficit, age 34, treated with aspirin and Patricia vix 6. History of medication noncompliance 7. Long-term tobacco use 8. Chronic kidney disease, now stage II with GFR 47 and creatinine 1.45, 09/2018 9. Hyponatremia, 09/2018 10. Sepsis, 09/2018 History of present illness: Ms. Marinelli is a 48-year-old female with a history of CVA, migraines, type 2 diabetes, history of sepsis due to osteomyelitis of toe, and hypertension who began having low back pain approximately 2 days ago. Her daughter states she seemed confused and aggravated. They were worried she was having another stroke, therefore they made her come to the emergency room. In the ER, her white blood cell count was found to be 26.4 and her lactic acid was elevated. Her sodium and chloride were low, her renal function was elevated, and her glucose was over 500 but no acetone was detected. She was admitted with a diagnosis of sepsis and leukocytosis. This a.m. she states she does feel better. Her back pain has resolved. Her daughter states her mental status seems to be better today. The above per Zuleyma Joya PA-C for Dr. Maldonado Cardiology consulted for medication clarification. Patient denies any recent chest pain, pressure or tightness. She freely admits that she does not like to take medications and does not check her diabetes. She was recently seen in August of this year with increasing her metoprolol to 75 mg daily due to improved but not to goal heart rate. She had previously been on Coreg and was switched to metoprolol due to noncompliance of afternoon dose and for better heart rate control. [facility] History Medical History: Reports:: Coronary Artery Disease, Cerebrovascular Accident, Diabetes Mellitus Type 2, Hyperlipidemia, Hypertension, Peripheral Vascular Disease Denies:: Cancer, Diabetes Mellitus Type 1, Internal Pacemaker, MRSA, Seizures *Have you ever received a pneumonia vaccine?: No *Have you received a flu vaccine this season?: No Other Surgeries: Yes: Cardiac Catheterization, Cholecystectomy, Coronary Stent, Tubal Ligation. 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.) Fractures: No - *Social History Educational Level: Completed High School Smoking Status: Current every day smoker Tobacco Type: cigarettes # Packs/Day (cigarettes): 1 Alcohol Intake: never Substance Use Type: denies use *Occupational Status:: disabled Housing: house Household Members: children *Travel in the last 8 weeks: None - Psychiatric History Expresses thoughts of harming self/others: None, Vague Suicide Plan Description: No Plan Family Hx:: Asthma, Coronary Artery Disease, Diabetes, Heart Attack Meds Home Medications Medication Instructions Recorded Confirmed Type Amitriptyline HCl 100 mg PO HS 10/22/17 10/03/18 History Gabapentin [Gabapentin 400mg Cap] 600 mg PO TID 10/22/17 10/02/18 History Glimepiride [Amaryl] 4 mg PO DAILY 10/22/17 10/02/18 History Insulin Lispro [Humalog] 4 unit SQ DAILY 10/22/17 10/02/18 History Aspirin [Aspirin 81mg chewable 81 mg PO DAILY 10/02/18 10/02/18 History tab] Clopidogrel Bisulfate [Plavix 75mg 75 mg PO DAILY 10/02/18 10/02/18 History Tab] Insulin Glargine,Hum.rec.anlog 20 unit SQ DAILY 10/02/18 10/03/18 History [Lantus Insulin 100units/mL 10mL vial] Lisinopril [Lisinopril 2.5mg Tab] 2.5 mg PO HS 10/02/18 10/03/18 History Metoprolol Succinate 75 mg PO DAILY 10/02/18 10/03/18 History Potassium 20 meq PO DAILY 10/02/18 10/02/18 History Amlodipine Besylate [Amlodipine 5 mg PO DAILY 10/03/18 10/03/18 History 5mg tab] Atorvastatin Calcium [Atorvastatin 10 mg PO HS 10/03/18 10/03/18 History 10mg Tab] Digoxin [Digoxin 0.125mg Tablet] 125 mcg PO DAILY 10/03/18 10/03/18 History Furosemide [Furosemide 40MG tAB] 40 mg PO DAILY 10/03/18 10/03/18 History Allergies Allergy/AdvReac Type Severity Reaction Status Date / Time No Known Allergies Allergy Verified 10/02/18 23:01 Review of Systems - *Cardiovascular Denies chest pain, Denies fast heart rate - *Respiratory Reports shortness of breath with activity, Denies cough - *Gastrointestinal Denies abdominal pain, Denies nausea, Denies vomiting - *Genitourinary Denies blood in urine - *Musculoskeletal Denies joint pain, Denies back pain - *Neurologic Reports abnormal speech (Daughter says speech was slurred. No aphasia or dysarthria.), Reports headache(s), Reports weakness, Reports other (history of old ischemic stroke without sequelae), Denies unsteadiness, Denies dizziness, Denies localized weakness, Denies dizziness Exam Vital signs and Labs for Last 24 Hours: Temp Pulse Resp BP Pulse Ox 99.0 F 112 H 21 120/86 93 L 10/04/18 04:00 10/04/18 04:00 10/04/18 04:00 10/04/18 04:00 10/04/18 04:00 Laboratory Results - last 24 hr 10/02/18 22:52: POC Glucose 568 H* 10/03/18 07:00: Digoxin < 0.20 L 10/03/18 11:12: POC Glucose 268 H 10/03/18 17:15: POC Glucose 194 H 10/03/18 20:25: Stl Aeromonas (PCR) Not detected, Stl C. cayetanensis PCR Not detected, Stool Rotavirus (PCR) Not detected, Stl Adenov F 40/41 PCR Not detected, Stool Astrovirus (PCR) Not detected, Stool Campylobacter PCR Detected A, Stl C.difficile Tox PCR Not detected, Stool Cryptosporidium PCR Not detected, Stl E.coli Shiga Tox PCR Not detected, Stool E coli O157 PCR Not detected, Stl Enterotoxigenic E PCR Not detected, Stool EPEC (PCR) Not detected, Stool EAEC (PCR) Not detected, Stl E. histolytica PCR Not detected, Stool Giardia Lamblia PCR Not detected, Stool Salmonella PCR Not detected, Stool Sapovirus (PCR) Not detected, Stl P. shigelloides PCR Not detected, Stl Shigella/EIEC PCR Not detected, St Y.enterocolitica PCR Not detected, Stool Vibrio (PCR) Not detected, Stl Vibrio cholerae PCR Not detected, Stl Norovirus GI/GII PCR Not detected 10/03/18 21:20: POC Glucose 131 H 10/04/18 06:49: WBC 15.1 H D, RBC 3.66 L, Hgb 10.4 L, Hct 32.5 L, MCV 88.8, MCH 28.4, MCHC 32.0, RDW 13.0, Plt Count 217, MPV 8.0, Neut % (Auto) 89.6 H, Lymph % (Auto) 5.0 L, [place] % (Auto) 5.0, Eos % (Auto) 0.2, Baso % (Auto) 0.2, Neut # (Auto) 13.5 H, Lymph # (Auto) 0.8, [place] # (Auto) 0.8, Eos # (Auto) 0.0, Baso # (Auto) 0.0 10/04/18 06:49: Sodium 132 L, Potassium 3.5, Chloride 100, Carbon Dioxide 22, Anion Gap 13.5, BUN 13, Creatinine 1.45 H, Estimated Creat Clear 49, Estimated GFR 39 L, Est GFR ( Amer) 47 L, Glucose 157 H D, Calcium 8.4 L I & O for Last 24 hours: Intake & Output 10/01/18 10/02/18 10/03/18 10/04/18 11:59 11:59 11:59 11:59 Intake Total 2019 / 2019 790 / 790 Output Total 200 / 200 200 / 200 Balance 1820 / 1820 590 / 590 Weight 139 lb 5 oz 140 lb 7 oz Microbiology Reports for the Last 24 Hours: Microbiology 10/03/18 00:29 Urine,Catheterized Urine Culture - Preliminary NO GROWTH AFTER 24 HOURS 10/02/18 23:08 Blood Blood Culture - Preliminary 10/02/18 23:08 Blood Blood Culture - Preliminary - *Routine HEENT Exam Head: Present: normocephalic Eye: Present: EOMI, PERRL ENT: Present: mucous membranes moist - *Routine Neck Exam Present: supple. Absent: JVD, carotid bruit - *Routine Respiratory Exam Present: CTA bilaterally. Absent: accessory muscle use, rales, rhonchi, wheezes - *Routine Cardiovascular Exam Present: RRR. Absent: murmur, gallop, rubs - *Routine Abdominal Exam Present: soft. Absent: tenderness, distended, guarding - *Routine Extremities Exam Absent: edema, calf tenderness - *Routine Neurological Exam Present: alert, oriented X3, moving all extremities Assessment and Plan (1) Acute urinary tract infection Current visit: Yes Status: Acute Category: Medical Code(s): N39.0 - Urinary tract infection, site not specified (2) Fever Current visit: Yes Status: Acute Qualifiers: Fever type: unspecified Qualified Code(s): R50.9 - Fever, unspecified Category: Medical Code(s): R50.9 - Fever, unspecified (3) Hyponatremia Current visit: Yes Status: Acute Category: Medical Code(s): E87.1 - Hypo- osmolality and hyponatremia (4) Leukocytosis Current visit: Yes Status: Acute Qualifiers: Leukocytosis type: unspecified Qualified Code(s): D72.829 - Elevated white blood cell count, unspecified Category: Medical Code(s): D72.829 - Elevated white blood cell count, unspecified (5) Sepsis Current visit: Yes Status: Acute Qualifiers: Sepsis type: sepsis due to unspecified organism Qualified Code(s): A41.9 - Sepsis, unspecified organism Category: Medical Code(s): A41.9 - Sepsis, unspecified organism (6) CAD (coronary artery disease) Current visit: No Status: Chronic Qualifiers: Coronary Disease-Associated Artery/Lesion type: [place] artery [place] vs. transplanted heart: [place] heart Associated angina: without angina Qualified Code(s): I25.10 - Atherosclerotic heart disease of [place] coronary artery without angina pectoris Category: Medical Code(s): I25.10 - Atherosclerotic heart disease of [place] coronary artery without angina pectoris (7) HHD (hypertensive heart disease) Current visit: No Status: Chronic Qualifiers: Heart failure presence: with heart failure Heart failure type: systolic Heart failure chronicity: chronic Qualified Code(s): I11.0 - Hypertensive heart disease with heart failure; I50.22 - Chronic systolic (congestive) heart failure Category: Medical Code(s): I11.9 - Hypertensive heart disease without heart failure (8) HLD (hyperlipidemia) Current visit: No Status: Chronic Qualifiers: Hyperlipidemia type: mixed hyperlipidemia Qualified Code(s): E78.2 - Mixed hyperlipidemia Category: Medical Code(s): E78.5 - Hyperlipidemia, unspecified (9) IDDM (insulin dependent diabetes mellitus) Current visit: Yes Status: Chronic Category: Medical Code(s): E11.9 - Type 2 diabetes mellitus without complications; Z79.4 - manager terminal (current) use of insulin (10) Non-compliant patient Current visit: Yes Status: Chronic Category: Medical Code(s): Z91.19 - Patient's noncompliance with other medical treatment and regimen - Assessment and plan all Dx Assessment and Plan for all problems:: 1. Continue metoprolol succinate (75 mg daily per our office records from 08/2018) for better heart rate control and medication compliance. Heart rate should improve with resolution of sepsis and better diabetes control. 2. Continue ASA and plavix for remote history of CVA and recent coronary stents in 12/2017. 3. Follow up in our office in 1-2 wks after discharge.
--- NOTE | 2018-10-04 08:17 | Progress Note ---
Internal Medicine - PN: Subj *Date: 10/04/18 *Time: 08:14 Interval history: Patient states she is feeling a little bit better today. She denies any pain and states she slept well and ate some breakfast today. Exam Vital signs and Labs for Last 24 Hours: Temp Pulse Resp BP Pulse Ox 99.0 F 112 H 21 120/86 93 L 10/04/18 04:00 10/04/18 04:00 10/04/18 04:00 10/04/18 04:00 10/04/18 04:00 Laboratory Results - last 24 hr 10/02/18 22:52: POC Glucose 568 H* 10/03/18 07:00: Digoxin < 0.20 L 10/03/18 11:12: POC Glucose 268 H 10/03/18 17:15: POC Glucose 194 H 10/03/18 20:25: Stl Aeromonas (PCR) Not detected, Stl C. cayetanensis PCR Not detected, Stool Rotavirus (PCR) Not detected, Stl Adenov F 40/41 PCR Not detected, Stool Astrovirus (PCR) Not detected, Stool Campylobacter PCR Detected A, Stl C.difficile Tox PCR Not detected, Stool Cryptosporidium PCR Not detected, Stl E.coli Shiga Tox PCR Not detected, Stool E coli O157 PCR Not detected, Stl Enterotoxigenic E PCR Not detected, Stool EPEC (PCR) Not detected, Stool EAEC (PCR) Not detected, Stl E. histolytica PCR Not detected, Stool Giardia Lamblia PCR Not detected, Stool Salmonella PCR Not detected, Stool Sapovirus (PCR) Not detected, Stl P. shigelloides PCR Not detected, Stl Shigella/EIEC PCR Not detected, St Y.enterocolitica PCR Not detected, Stool Vibrio (PCR) Not detected, Stl Vibrio cholerae PCR Not detected, Stl Norovirus GI/GII PCR Not detected 10/03/18 21:20: POC Glucose 131 H 10/04/18 06:49: WBC 15.1 H D, RBC 3.66 L, Hgb 10.4 L, Hct 32.5 L, MCV 88.8, MCH 28.4, MCHC 32.0, RDW 13.0, Plt Count 217, MPV 8.0, Neut % (Auto) 89.6 H, Lymph % (Auto) 5.0 L, [place] % (Auto) 5.0, Eos % (Auto) 0.2, Baso % (Auto) 0.2, Neut # (Auto) 13.5 H, Lymph # (Auto) 0.8, [place] # (Auto) 0.8, Eos # (Auto) 0.0, Baso # (Auto) 0.0 10/04/18 06:49: Sodium 132 L, Potassium 3.5, Chloride 100, Carbon Dioxide 22, Anion Gap 13.5, BUN 13, Creatinine 1.45 H, Estimated Creat Clear 49, Estimated GFR 39 L, Est GFR ( Amer) 47 L, Glucose 157 H D, Calcium 8.4 L I & O for Last 24 hours: Intake & Output 10/01/18 10/02/18 10/03/18 10/04/18 11:59 11:59 11:59 11:59 Intake Total 2019 790 / 790 Output Total 200 / 200 200 / 200 Balance 1820 / 1820 590 / 590 Weight 139 lb 5 oz 140 lb 7 oz Microbiology Reports for the Last 24 Hours: Microbiology 10/03/18 00:29 Urine,Catheterized Urine Culture - Preliminary NO GROWTH AFTER 24 HOURS 10/02/18 23:08 Blood Blood Culture - Preliminary 10/02/18 23:08 Blood Blood Culture - Preliminary - Constitutional no acute distress - *Routine Respiratory Exam Present: CTA bilaterally - *Routine Cardiovascular Exam Present: RRR - *Routine Abdominal Exam Present: soft, normoactive bowel sounds. Absent: tenderness - *Routine Extremities Exam Absent: cyanosis, clubbing, edema - *Routine Skin Exam Present: warm. Absent: rash - *Routine Neurological Exam Present: alert, oriented X3 Assessment and Plan (1) Acute urinary tract infection Current visit: Yes Status: Acute Category: Medical Code(s): N39.0 - Urinary tract infection, site not specified (2) Fever Current visit: Yes Status: Acute Qualifiers: Fever type: unspecified Qualified Code(s): R50.9 - Fever, unspecified Category: Medical Code(s): R50.9 - Fever, unspecified (3) Hyponatremia Current visit: Yes Status: Acute Category: Medical Code(s): E87.1 - Hypo- osmolality and hyponatremia (4) Leukocytosis Current visit: Yes Status: Acute Qualifiers: Leukocytosis type: unspecified Qualified Code(s): D72.829 - Elevated white blood cell count, unspecified Category: Medical Code(s): D72.829 - Elevated white blood cell count, unspecified (5) Sepsis Current visit: Yes Status: Acute Qualifiers: Sepsis type: sepsis due to unspecified organism Qualified Code(s): A41.9 - Sepsis, unspecified organism Category: Medical Code(s): A41.9 - Sepsis, unspecified organism (6) CAD (coronary artery disease) Current visit: No Status: Chronic Qualifiers: Coronary Disease-Associated Artery/Lesion type: [place] artery [place] vs. transplanted heart: [place] heart Associated angina: without angina Qualified Code(s): I25.10 - Atherosclerotic heart disease of [place] coronary artery withou t angina pectoris Category: Medical Code(s): I25.10 - Atherosclerotic heart disease of [place] coronary artery without angina pectoris (7) HHD (hypertensive heart disease) Current visit: No Status: Chronic Qualifiers: Heart failure presence: with heart failure Heart failure type: systolic Heart failure chronicity: chronic Qualified Code(s): I11.0 - Hypertensive heart disease with heart failure; I50.22 - Chronic systolic (congestive) heart failure Category: Medical Code(s): I11.9 - Hypertensive heart disease without heart failure (8) HLD (hyperlipidemia) Current visit: No Status: Chronic Qualifiers: Hyperlipidemia type: mixed hyperlipidemia Qualified Code(s): E78.2 - Mixed hyperlipidemia Category: Medical Code(s): E78.5 - Hyperlipidemia, unspecified (9) IDDM (insulin dependent diabetes mellitus) Current visit: Yes Status: Chronic Category: Medical Code(s): E11.9 - Type 2 diabetes mellitus without complications; Z79.4 - halfway (current) use of insulin (10) Non-compliant patient Current visit: Yes Status: Chronic Category: Medical Code(s): Z91.19 - Patient's noncompliance with other medical treatment and regimen (11) Campylobacter diarrhea Current visit: Yes Status: Acute Category: Medical Code(s): A04.5 - Campylobacter enteritis - Assessment and plan all Dx Assessment and Plan for all problems:: Preliminary blood cultures are growing E. coli. Will await sensitivities. Patient's potassium has normalized but her sodium has decreased slightly. Her renal function has improved as has her white blood cell count. Her diarrhea panel is positive for Campylobacter. She is currently on Zithromax.
[2018-10-04 12:28] LABS: Eosinophils % 1 % (0-3); Lymphocytes % 2 % (10-50); Monocytes % 7 % (2-9); Neutrophils % 82 % (42-76); RBC Morphology Normal; Total Cells Counted 100
--- NOTE | 2018-10-05 08:09 | Progress Note ---
Internal Medicine - PN: Subj *Date: 10/05/18 *Time: 08:06 Interval history: According to the nursing note, the patient was very confused last night and talking out of her head. Dr. Guardado was consulted and ordered an MRI for today. The patient states she feels much better today. She is not sure what happened last night but she thinks she was confused. She denies any pain and states she did sleep well. She did not feel like eating breakfast this morning. Exam Vital signs and Labs for Last 24 Hours: Temp Pulse Resp BP Pulse Ox 98.7 F 104 H 22 127/76 96 10/05/18 04:00 10/05/18 04:00 10/05/18 04:00 10/05/18 04:00 10/05/18 07:45 Laboratory Results - last 24 hr 10/04/18 06:05: POC Glucose 144 H 10/04/18 06:49: Total Counted 100, Neutrophils % (Manual) 82 H, Band Neutrophils % 7.0, Lymphocytes % (Manual) 2 L, Atypical Lymphs % 1.0, Monocytes % (Manual) 7, Eosinophils % (Manual) 1, Platelet Estimate Normal, RBC Morphology Normal 10/04/18 11:58: POC Glucose 140 H 10/04/18 17:06: POC Glucose 101 10/04/18 20:37: POC Glucose 90 10/05/18 05:57: POC Glucose 150 H I & O for Last 24 hours: Intake & Output 10/02/18 10/03/18 10/04/18 10/05/18 11:59 11:59 11:59 11:59 Intake Total 2019 / 2019 790 / 790 868 / 868 Output Total 200 / 200 200 / 200 Balance 1820 / 1820 590 / 590 868 / 868 Weight 139 lb 5 oz 140 lb 7 oz 139 lb 3 oz Microbiology Reports for the Last 24 Hours: Microbiology 10/03/18 00:29 Urine,Catheterized Urine Culture - Final Escherichia coli 10/02/18 23:08 Blood Blood Culture - Preliminary Escherichia coli 10/02/18 23:08 Blood Blood Culture - Final Escherichia coli - Constitutional no acute distress - *Routine Respiratory Exam Present: CTA bilaterally - *Routine Cardiovascular Exam Present: RRR - *Routine Abdominal Exam Present: soft, normoactive bowel sounds. Absent: tenderness - *Routine Extremities Exam Absent: cyanosis, clubbing, edema - *Routine Skin Exam Present: warm. Absent: rash - *Routine Neurological Exam Present: alert, oriented X3 Assessment and Plan (1) Acute urinary tract infection Current visit: Yes Status: Acute Category: Medical Code(s): N39.0 - Urinary tract infection, site not specified (2) Fever Current visit: Yes Status: Acute Qualifiers: Fever type: unspecified Qualified Code(s): R50.9 - Fever, unspecified Category: Medical Code(s): R50.9 - Fever, unspecified (3) Hyponatremia Current visit: Yes Status: Acute Category: Medical Code(s): E87.1 - Hypo- osmolality and hyponatremia (4) Leukocytosis Current visit: Yes Status: Acute Qualifiers: Leukocytosis type: unspecified Qualified Code(s): D72.829 - Elevated white blood cell count, unspecified Category: Medical Code(s): D72.829 - Elevated white blood cell count, unspecified (5) Sepsis Current visit: Yes Status: Acute Qualifiers: Sepsis type: sepsis due to unspecified organism Qualified Code(s): A41.9 - Sepsis, unspecified organism Category: Medical Code(s): A41.9 - Sepsis, unspecified organism (6) CAD (coronary artery disease) Current visit: No Status: Chronic Qualifiers: Coronary Disease-Associated Artery/Lesion type: [place] artery [place] vs. transplanted heart: [place] heart Associated angina: without angina Qualified Code(s): I25.10 - Atherosclerotic heart disease of [place] coronary artery without angina pectoris Category: Medical Code(s): I25.10 - Atherosclerotic heart disease of [place] coronary artery without angina pectoris (7) HHD (hypertensive heart disease) Current visit: No Status: Chronic Qualifiers: Heart failure presence: with heart failure Heart failure type: systolic Heart failure chronicity: chronic Qualified Code(s): I11.0 - Hypertensive heart disease with heart failure; I50.22 - Chronic systolic (congestive) heart failure Category: Medical Code(s): I11.9 - Hypertensive heart disease without heart failure (8) HLD (hyperlipidemia) Current visit: No Status: Chronic Qualifiers: Hyperlipidemia type: mixed hyperlipidemia Qualified Code(s): E78.2 - Mixed hyperlipidemia Category: Medical Code(s): E78.5 - Hyperlipidemia, unspecified (9) IDDM (insulin dependent diabetes mellitus) Current visit: Yes Status: Chronic Category: Medical Code(s): E11.9 - Type 2 diabetes mellitus without complications; Z79.4 - long term care pharmacist (current) use of insulin (10) Non-compliant patient Current visit: Yes Status: Chronic Category: Medical Code(s): Z91.19 - Patient's noncompliance with other medical treatment and regimen - Assessment and plan all Dx Assessment and Plan for all problems:: Patient's mental status seems to have improved this morning. We will recheck lab work today. Will discuss whether the patient needs an MRI with Dr. Maldonado this morning.
[2018-10-05 10:04] LABS: Basophils # 0.1 K/mm3 (0-0.2); Basophils % 0.4 % (0.1-2.0); Eosinophils # 0.1 K/mm3 (0.0-0.4); Eosinophils % 0.9 % (0.1-12.0); Hemoglobin 10.2 g/dL (12.2-16.2); Lymphocytes # 1.3 K/mm3 (0.7-4.5); Lymphocytes % 11.5 % (10-50); Mean Corpuscular Volume 87.9 fl (81-99); Mean Platelet Volume 8.3 fl (7.4-10.4); Monocytes # 0.5 K/mm3 (0.1-1.0); Monocytes % 4.6 % (1.7-9.3); Neutrophils # 9.2 K/mm3 (1.8-7.8); Neutrophils % 82.5 % (37.0-80.0); Platelet Count 219 K/mm3 (142-424); Red Blood Count 3.53 M/mm3 (4.20-5.40); Red Cell Distribution Width 13.1 % (11.5-17.5); White Blood Count 11.1 K/mm3 (4.8-10.8)
[2018-10-05 10:17] LABS: Albumin Level 1.9 gm/dL (3.4-5.0); Albumin/Globulin Ratio 0.4 (1.1-1.8); Anion Gap 12.7 mEq/L (5-15); Bilirubin,Total 0.7 mg/dL (0.2-1.0); Calcium 8.4 mg/dL (8.5-10.1); Globulin 4.4 gm/dl (1.3-3.2); Total Protein,Serum 6.3 gm/dL (6.4-8.2)
[2018-10-06 07:19] LABS: Basophils # 0.1 K/mm3 (0-0.2); Basophils % 0.8 % (0.1-2.0); Eosinophils # 0.2 K/mm3 (0.0-0.4); Eosinophils % 1.8 % (0.1-12.0); Hematocrit 28.8 % (37.0-47.0); Hemoglobin 9.2 g/dL (12.2-16.2); Lymphocytes # 1.8 K/mm3 (0.7-4.5); Lymphocytes % 17.7 % (10-50); Mean Corpuscular HGB Conc 31.8 g/dL (31.8-35.4); Mean Corpuscular Volume 89.1 fl (81-99); Mean Platelet Volume 7.3 fl (7.4-10.4); Monocytes # 0.8 K/mm3 (0.1-1.0); Monocytes % 8.2 % (1.7-9.3); Neutrophils # 7.4 K/mm3 (1.8-7.8); Neutrophils % 71.6 % (37.0-80.0); Platelet Count 244 K/mm3 (142-424); Red Blood Count 3.24 M/mm3 (4.20-5.40); Red Cell Distribution Width 13.4 % (11.5-17.5); White Blood Count 10.3 K/mm3 (4.8-10.8)
[2018-10-06 07:27] LABS: Anion Gap 11.4 mEq/L (5-15); Calcium 8.3 mg/dL (8.5-10.1)
--- NOTE | 2018-10-06 08:32 | Progress Note ---
Internal Medicine - PN: Arvin *Date: 10/06/18 *Time: 08:28 Interval history: Patient states she feels about the same today. She had a PICC line placed yesterday and continues with antibiotics. Her final blood cultures have returned positive for E. coli. She states she slept well last night and ate some this morning. Exam Vital signs and Labs for Last 24 Hours: Temp Pulse Resp BP Pulse Ox 97.9 F 84 20 117/60 96 10/06/18 08:00 10/06/18 08:17 10/06/18 08:00 10/06/18 08:00 10/06/18 08:00 Laboratory Results - last 24 hr 10/03/18 00:00: Procalcitonin 2.82 H 10/05/18 09:58: WBC 11.1 H D, RBC 3.53 L, Hgb 10.2 L, Hct 31.0 L, MCV 87.9, MCH 29.0, MCHC 33.0, RDW 13.1, Plt Count 219, MPV 8.3, Neut % (Auto) 82.5 H, Lymph % (Auto) 11.5, [place] % (Auto) 4.6, Eos % (Auto) 0.9, Baso % (Auto) 0.4, Neut # (Auto) 9.2 H, Lymph # (Auto) 1.3, [place] # (Auto) 0.5, Eos # (Auto) 0.1, Baso # (Auto) 0.1 10/05/18 09:58: Sodium 134 L, Potassium 3.7, Chloride 103, Carbon Dioxide 22, Anion Gap 12.7, BUN 10, Creatinine 1.08 H D, Estimated Creat Clear 65, Estimated GFR 55 L, Est GFR ( Amer) 66 D, Glucose 97, Calcium 8.4 L, Total Bilirubin 0.7, AST 41 H D, ALT 25 D, Alkaline Phosphatase 137 H, Total Protein 6.3 L, Albumin 1.9 L, Globulin 4.4 H, Albumin/Globulin Ratio 0.4 L 10/05/18 11:04: POC Glucose 98 10/05/18 16:15: POC Glucose 118 H 10/05/18 21:05: POC Glucose 124 H 10/06/18 06:07: WBC 10.3, RBC 3.24 L, Hgb 9.2 L, Hct 28.8 L, MCV 89.1, MCH 28.3, MCHC 31.8, RDW 13.4, Plt Count 244, MPV 7.3 L, Neut % (Auto) 71.6, Lymph % (Auto) 17.7, [place] % (Auto) 8.2, Eos % (Auto) 1.8, Baso % (Auto) 0.8, Neut # (Auto) 7.4, Lymph # (Auto) 1.8, [place] # (Auto) 0.8, Eos # (Auto) 0.2, Baso # (Auto) 0.1 10/06/18 06:07: Sodium 137, Potassium 3.4 L, Chloride 105, Carbon Dioxide 24, Anion Gap 11.4, BUN 9, Creatinine 1.07 H, Estimated Creat Clear 66, Estimated GFR 55 L, Est GFR ( Amer) 67, Glucose 77 D, Calcium 8.3 L 10/06/18 06:14: POC Glucose 80 I & O for Last 24 hours: Intake & Output 10/03/18 10/04/18 10/05/18 10/06/18 11:59 11:59 11:59 11:59 Intake Total 2019 / 2019 790 / 790 988 / 988 3037 / 3037 Output Total 200 / 200 200 / 200 Balance 1820 / 1820 590 / 590 988 / 988 3037 / 3037 Weight 139 lb 5 oz 140 lb 7 oz 139 lb 3 oz 139 lb 5 oz Microbiology Reports for the Last 24 Hours: Microbiology 10/03/18 00:29 Urine,Catheterized Urine Culture - Final Escherichia coli 10/02/18 23:08 Blood Blood Culture - Preliminary Escherichia coli 10/02/18 23:08 Blood Blood Culture - Final Escherichia coli - Constitutional no acute distress - *Routine Respiratory Exam Present: CTA bilaterally - *Routine Cardiovascular Exam Present: RRR - *Routine Abdominal Exam Present: soft, normoactive bowel sounds. Absent: tenderness - *Routine Extremities Exam Absent: cyanosis, clubbing, edema - *Routine Neurological Exam Present: alert, oriented X3 Assessment and Plan (1) Acute urinary tract infection Current visit: Yes Status: Acute Category: Medical Code(s): N39.0 - Urinary tract infection, site not specified (2) Fever Current visit: Yes Status: Acute Qualifiers: Fever type: unspecified Qualified Code(s): R50.9 - Fever, unspecified Category: Medical Code(s): R50.9 - Fever, unspecified (3) Hyponatremia Current visit: Yes Status: Acute Category: Medical Code(s): E87.1 - Hypo- osmolality and hyponatremia (4) Leukocytosis Current visit: Yes Status: Acute Qualifiers: Leukocytosis type: unspecified Qualified Code(s): D72.829 - Elevated white blood cell count, unspecified Category: Medical Code(s): D72.829 - Elevated white blood cell count, unspecified (5) Sepsis Current visit: Yes Status: Acute Qualifiers: Sepsis type: sepsis due to unspecified organism Qualified Code(s): A41.9 - Sepsis, unspecified organism Category: Medical Code(s): A41.9 - Sepsis, unspecified organism (6) CAD (coronary artery disease) Current visit: No Status: Chronic Qualifiers: Coronary Disease-Associated Artery/Lesion type: [place] artery [place] vs. transplanted heart: [place] heart Associated angina: without angina Qualified Code(s): I25.10 - Atherosclerotic heart disease of [place] coronary artery without angina pectoris Category: Medical Code(s): I25.10 - Atherosclerotic heart disease of [place] coronary artery without angina pectoris (7) HHD (hypertensive heart disease) Current visit: No Status: Chronic Qualifiers: Heart failure presence: with heart failure Heart failure type: systolic Heart failure chronicity: chronic Qualified Code(s): I11.0 - Hypertensive heart disease with heart failure; I50.22 - Chronic systolic (congestive) heart failure Category: Medical Code(s): I11.9 - Hypertensive heart disease without heart failure (8) HLD (hyperlipidemia) Current visit: No Status: Chronic Qualifiers: Hyperlipidemia type: mixed hyperlipidemia Qualified Code(s): E78.2 - Mixed hyperlipidemia Category: Medical Code(s): E78.5 - Hyperlipidemia, unspecified (9) IDDM (insulin dependent diabetes mellitus) Current visit: Yes Status: Chronic Category: Medical Code(s): E11.9 - Type 2 diabetes mellitus without complications; Z79.4 - [facility] (current) use of insulin (10) Non-compliant patient Current visit: Yes Status: Chronic Category: Medical Code(s): Z91.19 - Patient's noncompliance with other medical treatment and regimen (11) Bacteremia due to Escherichia coli Current visit: Yes Status: Acute Category: Medical Code(s): R78.81 - Bacteremia (12) Campylobacter diarrhea Current visit: Yes Status: Acute Category: Medical Code(s): A04.5 - Campylobacter enteritis - Assessment and plan all Dx Assessment and Plan for all problems:: We will continue IV antibiotics. White blood cell count has normalized. Will discuss further care with Dr. Maldonado.
--- NOTE | 2018-10-06 10:17 | Progress Note ---
Internal Medicine - PN: Subj *Date: 10/06/18 *Time: 10:17 Exam Vital signs and Labs for Last 24 Hours: Temp Pulse Resp BP Pulse Ox 97.9 F 84 20 117/60 96 10/06/18 08:00 10/06/18 08:17 10/06/18 08:00 10/06/18 08:00 10/06/18 08:00 Laboratory Results - last 24 hr 10/03/18 00:00: Procalcitonin 2.82 H 10/05/18 09:58: Sodium 134 L, Potassium 3.7, Chloride 103, Carbon Dioxide 22, Anion Gap 12.7, BUN 10, Creatinine 1.08 H D, Estimated Creat Clear 65, Estimated GFR 55 L, Est GFR ( Amer) 66 D, Glucose 97, Calcium 8.4 L, Total Bilirubin 0.7, AST 41 H D, ALT 25 D, Alkaline Phosphatase 137 H, Total Protein 6.3 L, Albumin 1.9 L, Globulin 4.4 H, Albumin/Globulin Ratio 0.4 L 10/05/18 11:04: POC Glucose 98 10/05/18 16:15: POC Glucose 118 H 10/05/18 21:05: POC Glucose 124 H 10/06/18 06:07: WBC 10.3, RBC 3.24 L, Hgb 9.2 L, Hct 28.8 L, MCV 89.1, MCH 28.3, MCHC 31.8, RDW 13.4, Plt Count 244, MPV 7.3 L, Neut % (Auto) 71.6, Lymph % (Auto) 17.7, [place] % (Auto) 8.2, Eos % (Auto) 1.8, Baso % (Auto) 0.8, Neut # (Auto) 7.4, Lymph # (Auto) 1.8, [place] # (Auto) 0.8, Eos # (Auto) 0.2, Baso # (Auto) 0.1 10/06/18 06:07: Sodium 137, Potassium 3.4 L, Chloride 105, Carbon Dioxide 24, Anion Gap 11.4, BUN 9, Creatinine 1.07 H, Estimated Creat Clear 66, Estimated GFR 55 L, Est GFR ( Amer) 67, Glucose 77 D, Calcium 8.3 L 10/06/18 06:14: POC Glucose 80 I & O for Last 24 hours: Intake & Output 10/03/18 10/04/18 10/05/18 10/06/18 23:59 23:59 23:59 23:59 Intake Total 2260 / 2260 1418 / 1418 720 / 720 2437 / 2437 Output Total 400 / 400 Balance 1860 / 1860 1418 / 1418 720 / 720 2437 / 2437 Weight 63.191 kg 63.701 kg 63.134 kg 63.191 kg Microbiology Reports for the Last 24 Hours: Microbiology 10/03/18 00:29 Urine,Catheterized Urine Culture - Final Escherichia coli 10/02/18 23:08 Blood Blood Culture - Preliminary Escherichia coli 10/02/18 23:08 Blood Blood Culture - Final Escherichia coli Assessment and Plan (1) Acute urinary tract infection Current visit: Yes Status: Acute Category: Medical Code(s): N39.0 - Urinary tract infection, site not specified (2) Fever Current visit: Yes Status: Acute Qualifiers: Fever type: unspecified Qualified Code(s): R50.9 - Fever, unspecified Category: Medical Code(s): R50.9 - Fever, unspecified (3) Hyponatremia Current visit: Yes Status: Acute Category: Medical Code(s): E87.1 - Hypo- osmolality and hyponatremia (4) Leukocytosis Current visit: Yes Status: Acute Qualifiers: Leukocytosis type: unspecified Qualified Code(s): D72.829 - Elevated white blood cell count, unspecified Category: Medical Code(s): D72.829 - Elevated white blood cell count, unspecified (5) Sepsis Current visit: Yes Status: Acute Qualifiers: Sepsis type: sepsis due to unspecified organism Qualified Code(s): A41.9 - Sepsis, unspecified organism Category: Medical Code(s): A41.9 - Sepsis, unspecified organism (6) CAD (coronary artery disease) Current visit: No Status: Chronic Qualifiers: Coronary Disease-Associated Artery/Lesion type: [place] artery [place] vs. transplanted heart: [place] heart Associated angina: without angina Qualified Code(s): I25.10 - Atherosclerotic heart disease of [place] coronary artery without angina pectoris Category: Medical Code(s): I25.10 - Atherosclerotic heart disease of [place] coronary artery without angina pectoris (7) HHD (hypertensive heart disease) Current visit: No Status: Chronic Qualifiers: Heart failure presence: with heart failure Heart failure type: systolic Heart failure chronicity: chronic Qualified Code(s): I11.0 - Hypertensive heart disease with heart failure; I50.22 - Chronic systolic (congestive) heart failure Category: Medical Code(s): I11.9 - Hypertensive heart disease without heart failure (8) HLD (hyperlipidemia) Current visit: No Status: Chronic Qualifiers: Hyperlipidemia type: mixed hyperlipidemia Qualified Code(s): E78.2 - Mixed hyperlipidemia Category: Medical Code(s): E78.5 - Hyperlipidemia, unspecified (9) IDDM (insulin dependent diabetes mellitus) Current visit: Yes Status: Chronic Category: Medical Code(s): E11.9 - Type 2 diabetes mellitus without complications; Z79.4 - intermediate (current) use of insulin (10) Non-compliant patient Current visit: Yes Status: Chronic Category: Medical Code(s): Z91.19 - Patient's noncompliance with other medical treatment and regimen (11) Bacteremia due to Escherichia coli Current visit: Yes Status: Acute Category: Medical Code(s): R78.81 - Bacteremia (12) Campylobacter diarrhea Current visit: Yes Status: Acute Category: Medical Code(s): A04.5 - Campylobacter enteritis The patient's infection will respond to the chosen ABx?: Yes Is the patient receiving the right drug, dose, and route?: Yes Could a more targeted ABx be ordered?: No
--- NOTE | 2018-10-07 12:48 | Progress Note ---
Internal Medicine - PN: Subj *Date: 10/07/18 *Time: 12:45 Interval history: She continues clinically stable. Blood sugars have run high. She has not been getting glargine insulin during this hospital stay. This will be ordered. She usually takes 8 units at nighttime. I will order this plus an additional 4 units at this time. I will discontinue potassium since she has had 2 doses this morning. Blood work is ordered and will be pending. Physical therapy consult was placed. Exam Vital signs and Labs for Last 24 Hours: Temp Pulse Resp BP Pulse Ox 97.7 F 90 16 139/83 98 10/07/18 08:00 10/07/18 08:10 10/07/18 08:00 10/07/18 08:00 10/07/18 08:00 Laboratory Results - last 24 hr 10/06/18 16:39: POC Glucose 181 H 10/06/18 20:07: POC Glucose 307 H* 10/07/18 06:38: POC Glucose 136 H 10/07/18 10:57: POC Glucose 275 H I & O for Last 24 hours: Intake & Output 10/05/18 10/06/18 10/07/18 10/08/18 11:59 11:59 11:59 11:59 Intake Total 988 / 988 3037 / 3037 840 / 840 Balance 988 / 988 3037 / 3037 840 / 840 Weight 139 lb 3 oz 139 lb 5 oz 139 lb 5 oz - Constitutional Comments: No acute distress. Somewhat lethargic this afternoon. Picking at her lunch. - *Routine HEENT Exam Head: Present: normocephalic Eye: Present: PERRL - *Routine Neck Exam Present: supple - *Routine Respiratory Exam Present: decreased breath sounds, CTA bilaterally - *Routine Cardiovascular Exam Present: RRR - *Routine Abdominal Exam Absent: tenderness - *Routine Extremities Exam Absent: edema Assessment and Plan (1) Acute urinary tract infection Current visit: Yes Status: Acute Category: Medical Code(s): N39.0 - Urinary tract infection, site not specified (2) Fever Current visit: Yes Status: Acute Qualifiers: Fever type: unspecified Qualified Code(s): R50.9 - Fever, unspecified Category: Medical Code(s): R50.9 - Fever, unspecified (3) Hyponatremia Current visit: Yes Status: Acute Category: Medical Code(s): E87.1 - Hypo- osmolality and hyponatremia (4) Leukocytosis Current visit: Yes Status: Acute Qualifiers: Leukocytosis type: unspecified Qualified Code(s): D72.829 - Elevated white blood cell count, unspecified Category: Medical Code(s): D72.829 - Elevated white blood cell count, unspecified (5) Sepsis Current visit: Yes Status: Acute Qualifiers: Sepsis type: sepsis due to unspecified organism Qualified Code(s): A41.9 - Sepsis, unspecified organism Category: Medical Code(s): A41.9 - Sepsis, unspecified organism (6) CAD (coronary artery disease) Current visit: No Status: Chronic Qualifiers: Coronary Disease-Associated Artery/Lesion type: [place] artery [place] vs. transplanted heart: [place] heart Associated angina: without angina Qualified Code(s): I25.10 - Atherosclerotic heart disease of [place] coronary artery without angina pectoris Category: Medical Code(s): I25.10 - Atherosclerotic heart disease of [place] coronary artery without angina pectoris (7) HHD (hypertensive heart disease) Current visit: No Status: Chronic Qualifiers: Heart failure presence: with heart failure Heart failure type: systolic Heart failure chronicity: chronic Qualified Code(s): I11.0 - Hypertensive heart disease with heart failure; I50.22 - Chronic systolic (congestive) heart failure Category: Medical Code(s): I11.9 - Hypertensive heart disease without heart failure (8) HLD (hyperlipidemia) Current visit: No Status: Chronic Qualifiers: Hyperlipidemia type: mixed hyperlipidemia Qualified Code(s): E78.2 - Mixed hyperlipidemia Category: Medical Code(s): E78.5 - Hyperlipidemia, unspecified (9) IDDM (insulin dependent diabetes mellitus) Current visit: Yes Status: Chronic Category: Medical Code(s): E11.9 - Type 2 diabetes mellitus without complications; Z79.4 - car greaser (current) use of insulin (10) Non-compliant patient Current visit: Yes Status: Chronic Category: Medical Code(s): Z91.19 - Patient's noncompliance with other medical treatment and regimen (11) Bacteremia due to Escherichia coli Current visit: Yes Status: Acute Category: Medical Code(s): R78.81 - Bacteremia (12) Campylobacter diarrhea Current visit: Yes Status: Acute Category: Medical Code(s): A04.5 - Campylobacter enteritis - Assessment and plan all Dx Assessment and Plan for all problems:: I hope to be able to discharge her tomorrow morning. Outpatient antibiotics are anticipated.
[2018-10-07 13:04] LABS: Basophils # 0.1 K/mm3 (0-0.2); Basophils % 0.7 % (0.1-2.0); Eosinophils # 0.3 K/mm3 (0.0-0.4); Eosinophils % 2.8 % (0.1-12.0); Hematocrit 31.6 % (37.0-47.0); Hemoglobin 10.1 g/dL (12.2-16.2); Lymphocytes # 1.8 K/mm3 (0.7-4.5); Lymphocytes % 16.7 % (10-50); Mean Platelet Volume 7.4 fl (7.4-10.4); Monocytes # 1.2 K/mm3 (0.1-1.0); Monocytes % 10.9 % (1.7-9.3); Neutrophils # 7.6 K/mm3 (1.8-7.8); Neutrophils % 69.1 % (37.0-80.0); Platelet Count 361 K/mm3 (142-424); Red Blood Count 3.55 M/mm3 (4.20-5.40); Red Cell Distribution Width 13.3 % (11.5-17.5); White Blood Count 10.9 K/mm3 (4.8-10.8)
[2018-10-07 13:17] LABS: Calcium 8.7 mg/dL (8.5-10.1)
--- NOTE | 2018-10-08 08:54 | Progress Note ---
Internal Medicine - PN: Subj *Date: 10/08/18 *Time: 08:54 Interval history: Patient feels she is better. She is eating and drinking without problems. She has been out of bed. Exam Vital signs and Labs for Last 24 Hours: Temp Pulse Resp BP Pulse Ox 97.8 F 95 H 15 120/70 94 L 10/08/18 08:00 10/08/18 08:00 10/08/18 08:00 10/08/18 08:00 10/08/18 08:00 Laboratory Results - last 24 hr 10/07/18 10:57: POC Glucose 275 H 10/07/18 12:55: WBC 10.9 H, RBC 3.55 L, Hgb 10.1 L, Hct 31.6 L, MCV 89.0, MCH 28.4, MCHC 32.0, RDW 13.3, Plt Count 361 D, MPV 7.4, Neut % (Auto) 69.1, Lymph % (Auto) 16.7, [place] % (Auto) 10.9 H, Eos % (Auto) 2.8, Baso % (Auto) 0.7, Neut # (Auto) 7.6, Lymph # (Auto) 1.8, [place] # (Auto) 1.2 H, Eos # (Auto) 0.3, Baso # (Auto) 0.1 10/07/18 12:55: Sodium 136, Potassium 4.0, Chloride 101, Carbon Dioxide 27, Anion Gap 12.0, BUN 8, Creatinine 1.18 H, Estimated Creat Clear 59, Estimated GFR 49 L, Est GFR ( Amer) 60, Glucose 202 H, Calcium 8.7 10/07/18 12:55: Digoxin 0.69 L 10/07/18 16:24: POC Glucose 278 H 10/07/18 20:28: POC Glucose 204 H 10/08/18 06:21: POC Glucose 135 H I & O for Last 24 hours: Intake & Output 10/05/18 10/06/18 10/07/18 10/08/18 11:59 11:59 11:59 11:59 Intake Total 988 / 988 3037 / 3037 840 / 840 1510 / 1510 Balance 988 / 988 3037 / 3037 840 / 840 1510 / 1510 Weight 139 lb 3 oz 139 lb 5 oz 139 lb 5 oz 139 lb 5 oz - Constitutional no acute distress Comments: Appears comfortable - *Routine Respiratory Exam Present: CTA bilaterally (Anteriorly and posteriorly) - *Routine Cardiovascular Exam Present: RRR - *Routine Abdominal Exam Present: soft, normoactive bowel sounds. Absent: tenderness, guarding - *Routine Extremities Exam Absent: edema, calf tenderness - *Routine Neurological Exam Present: alert, oriented X3 Assessment and Plan (1) Acute urinary tract infection Current visit: Yes Status: Acute Category: Medical Code(s): N39.0 - Urinary tract infection, site not specified (2) Fever Current visit: Yes Status: Acute Qualifiers: Fever type: unspecified Qualified Code(s): R50.9 - Fever, unspecified Category: Medical Code(s): R50.9 - Fever, unspecified (3) Hyponatremia Current visit: Yes Status: Acute Category: Medical Code(s): E87.1 - Hypo- osmolality and hyponatremia (4) Leukocytosis Current visit: Yes Status: Acute Qualifiers: Leukocytosis type: unspecified Qualified Code(s): D72.829 - Elevated white blood cell count, unspecified Category: Medical Code(s): D72.829 - Elevated white blood cell count, unspecified (5) Sepsis Current visit: Yes Status: Acute Qualifiers: Sepsis type: sepsis due to unspecified organism Qualified Code(s): A41.9 - Sepsis, unspecified organism Category: Medical Code(s): A41.9 - Sepsis, unspecified organism (6) CAD (coronary artery disease) Current visit: No Status: Chronic Qualifiers: Coronary Disease-Associated Artery/Lesion type: [place] artery [place] vs. transplanted heart: [place] heart Associated angina: without angina Qualified Code(s): I25.10 - Atherosclerotic heart disease of [place] coronary artery without angina pectoris Category: Medical Code(s): I25.10 - Atherosclerotic heart disease of [place] coronary artery without angina pectoris (7) HHD (hypertensive heart disease) Current visit: No Status: Chronic Qualifiers: Heart failure presence: with heart failure Heart failure type: systolic Heart failure chronicity: chronic Qualified Code(s): I11.0 - Hypertensive heart disease with heart failure; I50.22 - Chronic systolic (congestive) heart failure Category: Medical Code(s): I11.9 - Hypertensive heart disease without heart failure (8) HLD (hyperlipidemia) Current visit: No Status: Chronic Qualifiers: Hyperlipidemia type: mixed hyperlipidemia Qualified Code(s): E78.2 - Mixed hyperlipidemia Category: Medical Code(s): E78.5 - Hyperlipidemia, unspecified (9) IDDM (insulin dependent diabetes mellitus) Current visit: Yes Status: Chronic Category: Medical Code(s): E11.9 - Type 2 diabetes mellitus without complications; Z79.4 - [facility] (current) use of insulin (10) Non-compliant patient Current visit: Yes Status: Chronic Category: Medical Code(s): Z91.19 - Patient's noncompliance with other medical treatment and regimen (11) Bacteremia due to Escherichia coli Current visit: Yes Status: Acute Category: Medical Code(s): R78.81 - Bacteremia (12) Campylobacter diarrhea Current visit: Yes Status: Acute Category: Medical Code(s): A04.5 - Campylobacter enteritis - Assessment and plan all Dx Assessment and Plan for all problems:: Possible discharge today on antibiotics.
--- NOTE | 2018-10-08 23:19 | Discharge Summary ---
General - General Admission date:: 10/03/18 Discharge date: 10/08/18 HPI HPI: Ms. Marinelli is a 48-year-old female with a history of CVA, migraines, type 2 diabetes, history of sepsis due to osteomyelitis of toe, and hypertension who began having low back pain approximately 2 days ago. Her daughter states she seemed confused and aggravated. They were worried she was having another stroke, therefore they made her come to the emergency room. In the ER, her white blood cell count was found to be 26.4 and her lactic acid was elevated. Her sodium and chloride were low, her renal function was elevated, and her glucose was over 500 but no acetone was detected. She was admitted with a diagnosis of sepsis and leukocytosis. This a.m. she states she does feel better. Her back pain has resolved. Her daughter states her mental status seems to be better today. Hospital Course Hospital Course: The patient's head CT showed nothing acute. Her chest x-ray also showed nothing acute. She was admitted and started on IV fluids, insulin, and IV antibiotics. Her glucose improved as did her sodium, chloride, and renal function. Her back pain resolved. Her potassium was low and she was started on potassium r eplacement. Cardiology was consulted for cardiac medication direction as some of her medications had been changed. They had changed her carvedilol to metoprolol for better heart rate control and medical compliance. She was therefore continued on metoprolol as her heart rate was elevated. The patient had a diarrhea panel that came back positive for Campylobacter. She was therefore started on Zithromax. Her preliminary blood cultures began growing E. coli. She was therefore continued on the piperacillin/tazobactam along with the Zithromax. The patient did had an event episode during the night of 10/05/2018 where she became very confused. 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 The MRI was canceled. A PICC line was placed for continued IV antibiotics due to positive blood cultures. Her final blood cultures did come back positive for E. coli. She began feeling much better and was sleeping and eating. Her white blood cell count normalized. Physical therapy was consulted and they felt the patient could return home when stable and was inappropriate for skilled therapy. The patient was able to get up and out of bed. The E. coli cultured from her blood showed wide sensitivities including ceftriaxone. She was stable to be discharged home and will get a daily dose of ceftriaxone for 1 week and will follow-up in the office of [facility] with Dr. Maldonado. Objective Vital signs: Temp Pulse Resp BP Pulse Ox 98.1 F 80 16 141/72 H 100 10/08/18 11:26 10/08/18 12:00 10/08/18 11:26 10/08/18 11:26 10/08/18 11:26 Narrative: - Constitutional no acute distress - *Routine HEENT Exam Head: Present: normocephalic Eye: Present: EOMI, PERRL ENT: Present: mucous membranes dry - *Routine Neck Exam Present: supple. Absent: lymphadenopathy - *Routine Respiratory Exam Present: CTA bilaterally - *Routine Cardiovascular Exam Present: RRR - *Routine Abdominal Exam Present: soft, normoactive bowel sounds. Absent: tenderness - *Routine Extremities Exam Absent: cyanosis, clubbing, edema - *Routine Skin Exam Present: warm. Absent: rash - *Routine Neurological Exam Present: alert, oriented X3 Results Labs on day of discharge: Labs from last 24 hours 10/08/18 10/07/18 06:21 20:28 POC Glucose 135 H 204 H Preliminary micro results at discharge 10/02/18 23:08 Blood Culture - Preliminary Blood Escherichia coli DS: Diagnosis - Discharge Diagnosis (1) Acute urinary tract infection Status: Acute (2) Fever Status: Acute (3) Hyponatremia Status: Acute (4) Leukocytosis Status: Acute (5) Sepsis Status: Acute (6) CAD (coronary artery disease) Status: Chronic (7) HHD (hypertensive heart disease) Status: Chronic (8) HLD (hyperlipidemia) Status: Chronic (9) IDDM (insulin dependent diabetes mellitus) Status: Chronic (10) Non-compliant patient Status: Chronic (11) Bacteremia due to Escherichia coli Status: Acute (12) Campylobacter diarrhea Status: Acute Discharge Plan - Patient Discharge Instructions ACTIVITY: Ambulate as tolerated DIET: diabetic diet Patient Instructions: Lifestyle Changes as Effective as Drugs in Preventing Progression to Diabet, Escherichia coli Infection, Carbohydrate-Counting Diet, DI for Dehydration -- Adult, Sugar-Sweetened Fruit Drinks Linked to Increased Chance of Type 2 Diabetes , DI for Urinary Tract Infection (UTI), DI for Hyponatremia, Peripherally Inserted Central Catheter, Central Line-Associated Bloodstream Infections, DI for Sepsis -- Adult, Probiotics May Decrease Intensity and Duration of Diarrhea Due to Infection, DI for Leukocytosis - Follow up Plan Follow up with: Hugh Maldonado MD [Primary Care Provider] - 10/15/18 11:15 am Jeff Martinez MD [Staff Physician] - 10/29/18 1:10 pm Unknown provider or service follow up:: 10/08/18 09:02 Follow-up with Dr. Maldonado on Monday in [facility] office [place]. Disposition: Home, Self-[facility] Medications: Home Medications Medication Instructions Recorded Confirmed Type Amitriptyline HCl 100 mg PO HS 10/22/17 10/03/18 History Gabapentin [Gabapentin 400mg Cap] 600 mg PO TID 10/22/17 10/02/18 History Glimepiride [Amaryl] 4 mg PO DAILY 10/22/17 10/02/18 History Insulin Lispro [Humalog] 4 unit SQ DAILY 10/22/17 10/02/18 History Aspirin [Aspirin 81mg chewable 81 mg PO DAILY 10/02/18 10/02/18 History tab] Clopidogrel Bisulfate [Plavix 75mg 75 mg PO DAILY 10/02/18 10/02/18 History Tab] Lisinopril [Lisinopril 2.5mg Tab] 2.5 mg PO HS 10/02/18 10/03/18 History Metoprolol Succinate 75 mg PO DAILY 10/02/18 10/03/18 History Potassium 20 meq PO DAILY 10/02/18 10/02/18 History Amlodipine Besylate [Amlodipine 5 mg PO DAILY 10/03/18 10/03/18 History 5mg tab] Atorvastatin Calcium [Atorvastatin 10 mg PO HS 10/03/18 10/03/18 History 10mg Tab] Digoxin [Digoxin 0.125mg Tablet] 125 mcg PO DAILY 10/03/18 10/03/18 History Furosemide [Furosemide 40MG tAB] 40 mg PO DAILY 10/03/18 10/03/18 History Ceftriaxone Sodium [Rocephin 1gm 1 gm IV DAILY #7 vial 10/08/18 Rx vial] Insulin Glargine,Hum.rec.anlog 10 unit SQ DAILY #1 vial 10/08/18 Rx [Lantus Insulin 100units/mL 10mL vial] Prescriptions/Medication Reconciliation: New Ceftriaxone Sodium [Rocephin 1gm vial] 1 gm IV DAILY #7 vial Continued Amitriptyline HCl 100 mg PO HS Gabapentin [Gabapentin 400mg Cap] 600 mg PO TID Insulin Lispro [Humalog] 4 unit SQ DAILY Metoprolol Succinate 75 mg PO DAILY Lisinopril [Lisinopril 2.5mg Tab] 2.5 mg PO HS Digoxin [Digoxin 0.125mg Tablet] 125 mcg PO DAILY Amlodipine Besylate [Amlodipine 5mg tab] 5 mg PO DAILY Atorvastatin Calcium [Atorvastatin 10mg Tab] 10 mg PO HS Furosemide [Furosemide 40MG tAB] 40 mg PO DAILY Glimepiride [Amaryl] 4 mg PO DAILY Aspirin [Aspirin 81mg chewable tab] 81 mg PO DAILY Clopidogrel Bisulfate [Plavix 75mg Tab] 75 mg PO DAILY Potassium 20 meq PO DAILY Changed Insulin Glargine,Hum.rec.anlog [Lantus Insulin 100units/mL 10mL vial] 10 unit SQ DAILY #1 vial
== END 2018-10-08 12:43 | disposition home or self-care (01) | DRG 872 ==
LOC: ER 22:53 → 2ND 22:53 → OBSVTOIN 10-03 02:34 → 2ND 10-03 02:35
PROVIDERS: ADMIT Family Medicine; ATTEND Family Medicine
CPT/HCPCS: 36415; 36569; 70450; 71010; 71020; 71045; 71046; 80048; 80053; 80162; 81001; 82009; 82962; 83605; 84145; 84484; 85007; 85025; 87040; 87077; 87086; 87088; 87186; 87507; 93005; 96365; 96366; 96367; 96375; 99285; C1751; J2543; J3370

== ENCOUNTER → 2018-10-09 10:15 | Outpatient (CLI) | payer MEDICARE, SELFPAY ==
[2018-10-09 10:27] VITALS: BP 80/57; PULSE 91; RESP 18
[2018-10-09 10:45] VITALS: BP 80/62; PULSE 89; RESP 18
[2018-10-09 11:00] VITALS: BP 92/56; PULSE 84; RESP 18
[2018-10-09 11:20] VITALS: BP 82/57; PULSE 89; RESP 18
== END ==
PROVIDERS: Visit Provider Family Medicine
DX: A41.51 Sepsis due to Escherichia coli [E. coli]
CPT/HCPCS: 96365

== ENCOUNTER 2018-10-10 10:18 | Outpatient (CLI) | payer MEDICARE, SELFPAY ==
[2018-10-10 10:29] VITALS: BP 82/52; PULSE 88; RESP 18; TEMP 36.6; O2SAT 97
[2018-10-10 10:59] VITALS: BP 91/55; PULSE 84; RESP 18; O2SAT 98
[2018-10-10 11:15] VITALS: BP 89/51; PULSE 85; RESP 18; O2SAT 97
== END 2018-10-10 11:15 | disposition home or self-care (01) ==
LOC: INF 10:18
PROVIDERS: Visit Provider Family Medicine
DX: A41.51 Sepsis due to Escherichia coli [E. coli] (principal)
CPT/HCPCS: 96365

== ENCOUNTER 2018-10-11 10:18 | Outpatient (CLI) | payer MEDICARE, SELFPAY ==
[2018-10-11 10:28] VITALS: BMI 20.7
[2018-10-11 10:45] VITALS: BP 88/60; PULSE 81; RESP 16; O2SAT 97
[2018-10-11 10:57] LABS: Basophils # 0.1 K/mm3 (0-0.2); Basophils % 0.9 % (0.1-2.0); Eosinophils # 0.3 K/mm3 (0.0-0.4); Hematocrit 35.8 % (37.0-47.0); Hemoglobin 11.3 g/dL (12.2-16.2); Lymphocytes # 2.6 K/mm3 (0.7-4.5); Lymphocytes % 19.9 % (10-50); Mean Corpuscular HGB Conc 31.5 g/dL (31.8-35.4); Mean Corpuscular Hemoglobin 28.2 pg (27.0-31.2); Mean Corpuscular Volume 89.5 fl (81-99); Mean Platelet Volume 7.1 fl (7.4-10.4); Monocytes # 0.6 K/mm3 (0.1-1.0); Monocytes % 4.5 % (1.7-9.3); Neutrophils # 9.3 K/mm3 (1.8-7.8); Neutrophils % 72.6 % (37.0-80.0); Red Cell Distribution Width 13.2 % (11.5-17.5); White Blood Count 12.8 K/mm3 (4.8-10.8)
[2018-10-11 11:06] LABS: Alanine Aminotransferase 19 U/L (12-78); Albumin Level 2.4 gm/dL (3.4-5.0); Albumin/Globulin Ratio 0.4 (1.1-1.8); Alkaline Phosphatase 141 U/L (46-116); Anion Gap 8.7 mEq/L (5-15); Aspartate Amino Transferase 10 U/L (15-37); Bilirubin,Total 0.3 mg/dL (0.2-1.0); Blood Urea Nitrogen 14 mg/dL (7-18); Calcium 9.1 mg/dL (8.5-10.1); Carbon Dioxide 30 mmol/L (21.0-32.0); Chloride 98 mmol/L (98-107); Creatinine Clearance Estimated 51 mL/min (50-200); Creatinine,Serum 1.24 mg/dL (0.55-1.02); Estimated Glomerular Filt Rate 47 ml/min (>60); GFR (African American) 56 ML/MIN (>60); Globulin 5.4 gm/dl (1.3-3.2); Glucose 215 mg/dL (74-106); Potassium 3.7 mmoL/L (3.5-5.1); Sodium 133 mmol/L (136-145); Total Protein,Serum 7.8 gm/dL (6.4-8.2)
[2018-10-11 11:20] VITALS: BP 100/63; PULSE 78; RESP 16
[2018-10-11 11:22] LABS: Platelet Count 697 K/mm3 (142-424)
== END 2018-10-11 11:40 | disposition home or self-care (01) ==
LOC: INF 10:18
PROVIDERS: Visit Provider Family Medicine
DX: A41.51 Sepsis due to Escherichia coli [E. coli] (principal)
CPT/HCPCS: 80053; 85025; 96365

== ENCOUNTER → 2018-10-12 10:25 | Outpatient (CLI) | payer MEDICARE, SELFPAY ==
[2018-10-12 10:37] VITALS: BP 100/74; PULSE 82; RESP 18
[2018-10-12 11:30] VITALS: BP 95/65; PULSE 79; RESP 18
== END ==
PROVIDERS: Visit Provider Family Medicine
DX: A41.51 Sepsis due to Escherichia coli [E. coli] (principal)
CPT/HCPCS: 96365

== ENCOUNTER → 2018-10-13 09:53 | Outpatient (CLI) | payer MEDICARE, SELFPAY ==
[2018-10-13 10:00] VITALS: BP 118/73; PULSE 83; RESP 16; TEMP 37.1; O2SAT 100
== END ==
PROVIDERS: PCP Family Medicine; Visit Provider Family Medicine
DX: A41.51 Sepsis due to Escherichia coli [E. coli] (principal)
CPT/HCPCS: 96365

== ENCOUNTER → 2018-10-14 09:59 | Outpatient (CLI) | payer MEDICARE, SELFPAY ==
[2018-10-14 10:22] VITALS: BP 112/88; PULSE 83; RESP 18; TEMP 36.4; O2SAT 95; BMI 20.7
[2018-10-14 10:56] VITALS: BP 101/64; PULSE 82; RESP 18; TEMP 36.7; O2SAT 98
== END ==
PROVIDERS: PCP Family Medicine; Visit Provider Family Medicine
DX: A41.51 Sepsis due to Escherichia coli [E. coli] (principal)
CPT/HCPCS: 96365

== ENCOUNTER 2018-10-15 09:56 | Outpatient (CLI) | payer MEDICARE, SELFPAY ==
[2018-10-15 10:07] VITALS: BP 87/67; PULSE 90; RESP 18; TEMP 36.6; O2SAT 96
[2018-10-15 10:37] VITALS: BP 89/62; PULSE 89; RESP 18; O2SAT 97
[2018-10-15 10:50] VITALS: BP 109/71; PULSE 87; RESP 18; O2SAT 96
== END 2018-10-15 10:50 | disposition home or self-care (01) ==
LOC: INF 09:56
PROVIDERS: Visit Provider Family Medicine
DX: A41.51 Sepsis due to Escherichia coli [E. coli] (principal)
CPT/HCPCS: 96365

== ENCOUNTER 2018-10-17 14:15 | Outpatient (CLI) | payer MEDICARE, SELFPAY ==
[2018-10-17 14:40] VITALS: BP 102/75; PULSE 88; RESP 18; O2SAT 100
[2018-10-17 15:10] VITALS: BP 100/71; PULSE 88; RESP 18
== END 2018-10-17 15:30 | disposition home or self-care (01) ==
LOC: INF 14:25
PROVIDERS: Visit Provider Family Medicine
DX: Z45.2 Encounter for adjustment and management of vascular access device (principal); A41.51 Sepsis due to Escherichia coli [E. coli]
CPT/HCPCS: 96365

== ENCOUNTER 2018-10-18 13:11 | Outpatient (CLI) | payer MEDICARE, SELFPAY ==
[2018-10-18 13:12] VITALS: BP 108/71; PULSE 83; RESP 18; TEMP 36.5; O2SAT 97
[2018-10-18 13:55] VITALS: BP 99/64; PULSE 85; RESP 18; TEMP 36.6; O2SAT 97
== END 2018-10-18 13:55 | disposition home or self-care (01) ==
LOC: INF 13:11
PROVIDERS: Visit Provider Family Medicine
DX: A41.51 Sepsis due to Escherichia coli [E. coli] (principal)
CPT/HCPCS: 96365

== ENCOUNTER 2018-10-19 13:30 | Outpatient (CLI) | payer MEDICARE, SELFPAY ==
[2018-10-19 13:45] VITALS: BP 123/78; PULSE 89
[2018-10-19 14:45] VITALS: BP 95/64; PULSE 82; RESP 18; O2SAT 99
== END 2018-10-19 14:45 | disposition home or self-care (01) ==
LOC: INF 13:33
PROVIDERS: Visit Provider Family Medicine
DX: A41.51 Sepsis due to Escherichia coli [E. coli] (principal)
CPT/HCPCS: 96365

== ENCOUNTER 2018-10-20 13:21 | Outpatient (CLI) | payer MEDICARE, SELFPAY ==
[2018-10-20 13:38] VITALS: BP 109/76; PULSE 86; RESP 20
[2018-10-20 14:00] VITALS: BP 120/80; PULSE 80; RESP 18
== END 2018-10-20 14:00 | disposition home or self-care (01) ==
PROVIDERS: PCP Family Medicine; Visit Provider Family Medicine
DX: A41.51 Sepsis due to Escherichia coli [E. coli] (principal)
CPT/HCPCS: 96365

== ENCOUNTER 2018-10-21 13:24 | Outpatient (CLI) | payer MEDICARE, SELFPAY ==
[2018-10-21 13:35] VITALS: BP 115/72; PULSE 89; RESP 16; TEMP 36.6; O2SAT 98
[2018-10-21 14:21] VITALS: BP 116/81; PULSE 87; RESP 20; O2SAT 98
== END 2018-10-21 14:15 | disposition home or self-care (01) ==
LOC: INF 13:25
PROVIDERS: PCP Family Medicine; Visit Provider Family Medicine
DX: A41.51 Sepsis due to Escherichia coli [E. coli] (principal)
CPT/HCPCS: 96365

== ENCOUNTER 2018-10-22 13:42 | Outpatient (CLI) | payer MEDICARE, SELFPAY ==
[2018-10-22 13:47] VITALS: BP 109/68; PULSE 81; RESP 18; O2SAT 97
[2018-10-22 14:30] VITALS: BP 107/66; PULSE 76; RESP 18; O2SAT 99
== END 2018-10-22 14:30 | disposition home or self-care (01) ==
LOC: INF 13:42
PROVIDERS: Visit Provider Family Medicine
DX: A41.51 Sepsis due to Escherichia coli [E. coli] (principal)
CPT/HCPCS: 96365

== ENCOUNTER 2018-10-23 13:30 | Outpatient (CLI) | payer MEDICARE, SELFPAY ==
[2018-10-23 13:43] VITALS: BP 123/82; PULSE 73; RESP 18
[2018-10-23 14:35] VITALS: BP 119/72; PULSE 75; RESP 18
== END 2018-10-23 14:35 | disposition home or self-care (01) ==
LOC: INF 13:32
PROVIDERS: Visit Provider Family Medicine
DX: A41.51 Sepsis due to Escherichia coli [E. coli] (principal)
CPT/HCPCS: 96365

== ENCOUNTER 2018-10-24 13:48 | Outpatient (CLI) | payer MEDICARE, SELFPAY ==
[2018-10-24 13:49] VITALS: BMI 21.2
[2018-10-24 14:32] LABS: Alanine Aminotransferase 17 U/L (12-78); Albumin Level 2.9 gm/dL (3.4-5.0); Albumin/Globulin Ratio 0.6 (1.1-1.8); Alkaline Phosphatase 165 U/L (46-116); Anion Gap 12.8 mEq/L (5-15); Aspartate Amino Transferase 10 U/L (15-37); Bilirubin,Total 0.3 mg/dL (0.2-1.0); Blood Urea Nitrogen 5 mg/dL (7-18); Carbon Dioxide 27 mmol/L (21.0-32.0); Chloride 101 mmol/L (98-107); Creatinine Clearance Estimated 69 mL/min (50-200); Creatinine,Serum 0.94 mg/dL (0.55-1.02); Estimated Glomerular Filt Rate 64 ml/min (>60); GFR (African American) 78 ML/MIN (>60); Globulin 4.6 gm/dl (1.3-3.2); Glucose 207 mg/dL (74-106); Potassium 3.8 mmoL/L (3.5-5.1); Sodium 137 mmol/L (136-145); Total Protein,Serum 7.5 gm/dL (6.4-8.2)
== END 2018-10-24 14:15 | disposition home or self-care (01) ==
LOC: INF 13:48
PROVIDERS: PCP Family Medicine; Visit Provider Family Medicine
DX: A41.51 Sepsis due to Escherichia coli [E. coli] (principal); Z45.2 Encounter for adjustment and management of vascular access device
CPT/HCPCS: 80053; G0463

== ENCOUNTER → 2018-11-12 12:42 | Outpatient (CLI) | payer MEDICARE, SELFPAY ==
--- NOTE | 2018-11-12 12:45 | US_ITS ---
PROCEDURE: US TRANSVAGINAL CLINICAL INDICATION: ecoli bacteremia COMPARISON: No exams were available for comparison TECHNIQUE: FINDINGS: The uterus is 7 x 4 x 4 cm with a combined endometrial thickness of 5 mm. In the anterior aspect of the uterine fundus there is a 2.4 x 1.7 cm area of heterogeneous echogenicity suggesting a fibroid. Left ovary is 17 x 16 mm and right ovary is 20 x 18 mm. No dominant cyst or mass evident. There is blood flow present in the ovaries. No cul-de-sac fluid evident IMPRESSION: Small uterine fibroid otherwise negative Dictated by: Sidney Napoles MD 11/12/2018 17:36 Signed by: <Electronically signed by Sidney Napoles MD in [facility]> 11/12/2018 17:36
== END ==
PROVIDERS: PCP Family Medicine; Visit Provider Family Medicine
DX: R78.81 Bacteremia (principal)
CPT/HCPCS: 76830

== ENCOUNTER → 2018-11-29 14:11 | Outpatient (CLI) | payer MEDICARE, SELFPAY ==
[2018-11-29 14:32] LABS: Basophils # 0.1 K/mm3 (0-0.2); Basophils % 0.7 % (0.1-2.0); Eosinophils # 0.2 K/mm3 (0.0-0.4); Eosinophils % 1.7 % (0.1-12.0); Hematocrit 39.1 % (37.0-47.0); Hemoglobin 13.1 g/dL (12.2-16.2); Lymphocytes # 2.7 K/mm3 (0.7-4.5); Lymphocytes % 26.6 % (10-50); Mean Corpuscular HGB Conc 33.5 g/dL (31.8-35.4); Mean Corpuscular Volume 89.6 fl (81-99); Mean Platelet Volume 6.8 fl (7.4-10.4); Monocytes # 0.6 K/mm3 (0.1-1.0); Monocytes % 6.2 % (1.7-9.3); Neutrophils # 6.5 K/mm3 (1.8-7.8); Neutrophils % 64.9 % (37.0-80.0); Platelet Count 351 K/mm3 (142-424); Red Blood Count 4.37 M/mm3 (4.20-5.40); Red Cell Distribution Width 13.6 % (11.5-17.5); White Blood Count 10.1 K/mm3 (4.8-10.8)
[2018-11-29 15:09] LABS: Erythrocyte Sedimentation Rate 47 mm/hr (0-20)
[2018-11-29 15:13] LABS: C-Reactive Protein 2.4 mg/dL (0.0-0.9)
== END ==
PROVIDERS: Visit Provider Internal Medicine Medical Oncology
DX: D72.829 Elevated white blood cell count, unspecified (principal)
CPT/HCPCS: 36415; 85025; 85651; 86140

== ENCOUNTER → 2019-02-15 08:59 | Outpatient (CLI) | payer MEDICARE, SELFPAY ==
--- NOTE | 2019-02-15 09:02 | CA_ITS ---
APPROVED REPORT EXAM: Comprehensive 2D, Doppler, and color-flow Echocardiogram Pluck Trimmer: Marianne Dangelo RDCS Ht: 95 ft 6 in Wt: 124lbs BSA: 12.92 BP: 95/66 mmHg Indications: Abnormal ECG, Diabetes, CAD, Hyperlipidemia, Cardiomyopathy, Hypertension/HDD 2D Dimensions LVOT 1.89 cm (M/F) 1.5-2.5 M-Mode Dimensions RVDd 2.53 cm (0.9-2.6) LVDd 5.39 cm (3.5-5.7) LVDs 4.07 cm (3.5-5.7) IVSd 0.96 cm (0.6-1.1) PWd 0.75 cm (0.6-1.1) EF (Teich) 48.20% FS 24.50% EDV (Teich) 140.70 mL ESV (Teich) 72.90 mL LV Diastology E/A Ratio 0.60 Mitral Valve MV A Velocity 69.00 (40-130 cm/s) Left Ventricle Left atrium is mildly enlarged, left ventricle is normal size, mild concentric left ventricular hypertrophy, visually estimated ejection fraction 45 to 50%, there is moderate hypokinesis involving the mid to distal septum, anteroapical and apical wall. Grade 1 diastolic dysfunction seen without tissue Doppler evidence of raise left atrial pressure. Right Ventricle Right atrium and right ventricle are normal size and contractility. Aortic Valve Aortic valve is thickened and calcified leaflet chordae display good mobility, there is no aortic stenosis or aortic insufficiency. Mitral Valve Mitral valve is grossly normal, there is mild mitral regurgitation. Tricuspid Valve Tricuspid valve is grossly normal, there is mild tricuspid regurgitation. Calculated right ventricular systolic pressure is 42 mmHg. Pulmonic Valve Pulmonic valve is poorly visualized. Great Vessels Aortic root is normal size. Pericardium No significant pericardial effusion noted. Conclusion 1. Mildly enlarged left atrium, normal left ventricular size, mild concentric left ventricular hypertrophy, visually estimated ejection fraction 45 to 50% with multiple segmental wall motion abnormality described above, grade 1 diastolic dysfunction seen without tissue Doppler evidence of raise left atrial pressure. 2. Mild mitral and tricuspid regurgitation. Calculated right ventricular systolic pressure is 42 mmHg which is moderately elevated. 3. No significant pericardial effusion noted. Electronically signed by : Christopher Noyola, 02/17/2019 09:41:34
== END ==
PROVIDERS: PCP Family Medicine; Visit Provider Family Medicine
DX: R00.0 Tachycardia, unspecified (principal); R06.02 Shortness of breath
CPT/HCPCS: 93306

== ENCOUNTER → 2019-03-21 14:33 | Outpatient (CLI) | payer MEDICARE, MEDICAID, SELFPAY ==
--- NOTE | 2019-03-21 14:44 | XR_ITS ---
PROCEDURE: XR ABDOMEN MIN 2V CLINICAL INDICATION: LUQ PAIN COMPARISON: No exams were available for comparison FINDINGS: Prior cholecystectomy. Bowel gas pattern is nonspecific and nonobstructive appearing. Minimal lumbar curvature convex right. No abnormal calcifications or acute bony anomalies. IMPRESSION: No acute findings. Dictated by: Sidney Napoles MD 03/21/2019 15:30 Electronically signed by Sidney Napoles MD in [facility] 03/21/2019 15:30
== END ==
PROVIDERS: PCP Family Medicine; Visit Provider Physician Assistant
DX: R10.12 Left upper quadrant pain (principal)
CPT/HCPCS: 74019

== ENCOUNTER → 2019-03-26 11:25 | Outpatient (CLI) | payer MEDICARE, MEDICAID, SELFPAY ==
--- NOTE | 2019-03-26 11:28 | CT_ITS ---
PROCEDURE: CT ABDOMEN PELVIS W CON CLINICAL INDICATION: LLUQ Left upper quadrant pain COMPARISON: No exams were available for comparison TECHNIQUE: IV Contrast: 75ML OPTIRAY 350 Oral Contrast Readi-Cat Axial images obtained with sagittal and coronal reformats. All CT scans at the facility use one or more dose reduction, viz: automated exposure control, ma/kV adjustment per patient size (including targeted exams where dose is matched to indication, i.e. head), or iterative reconstruction technique. FINDINGS: LOWER THORAX: No acute finding. Coronary artery stents are present. ABDOMEN & PELVIS: Status post prior cholecystectomy. Fatty liver. The spleen, adrenal glands, and pancreas have an unremarkable appearance. No renal or ureteral calculi. There is some mild cortical irregularity of the renal cortex suggesting some mild scarring. No hydronephrosis or renal mass evident. Unremarkable appendix. There is a mild amount of retained colonic feces. No intestinal obstruction or free air. No pelvic mass or abnormal pelvic fluid collection. There are few scattered colonic diverticula but no evidence of diverticulitis. No acute bony findings IMPRESSION: 1. No acute abdominal or pelvic findings. 2. There is a mild amount of retained colonic feces throughout the colon. 3. Mild cortical irregularity of the kidneys suggesting some mild scarring. Dictated by: Sidney Napoles MD 03/27/2019 11:12 Electronically signed by Sidney Napoles MD in [facility] 03/27/2019 11:12
== END ==
PROVIDERS: PCP Physician Assistant; Visit Provider Physician Assistant
DX: R10.12 Left upper quadrant pain (principal)
CPT/HCPCS: 74177; Q9967

== ENCOUNTER 2019-09-04 12:01 | Inpatient (IN) | payer MEDICARE, MEDICAID, SELFPAY ==
[2019-09-04] VITALS (27 sets, daily range): BP systolic 99–140; BP diastolic 56–80; PULSE 70–92; RESP 16–20; TEMP 36.6–36.8; O2SAT 91–100; BMI 22.9
--- NOTE | 2019-09-04 | IR_ITS ---
APPROVED REPORT Patient Location: [facility]patient [facility] Induction: MCKENNA Mendoza RT (R) PROCEDURES Left femoral arterial access Catheter placement in the abdominal aorta Abdominal aortogram Repositioning of the catheter in the abdominal aorta Bilateral iliofemoral runoff Angioplasty and stenting to the right popliteal artery and right superficial femoral artery INDICATION Class IV-V [place] claudication, Limb threatening ischemia, Poorly healing lower extremity ulcer, Occluded right superficial femoral artery Informed consent was obtained prior to the procedure. COMPLICATIONS none Estimated Blood Loss: less than 10 mls TECHNIQUE 1% lidocaine used to anesthetize the left femoral groin. The left femoral artery was accessed via the Seldinger technique. A 5 Syrian sheath was placed in the left femoral artery and a pigtail catheter was placed in abdominal aorta. Abdominal aortography was performed followed by catheter repositioning with bilateral iliofemoral runoff. Following this therapeutic heparin was administered and an advantage wire was placed into the pigtail catheter guided down into the right superficial femoral artery. The sheath was removed and a 6 Syrian destination sheath was advanced. Therapeutic heparin was administered and an advantage wire was used to push through the occlusion in the superficial femoral artery. A 5 mm x 100 mm balloon was used to predilate the stenosis. A large dissection was identified therefore a 6 mm x 150 mm self-expanding EV 3 stent was deployed followed by an additional 6 mm x 120 mm EV 3 stent overlapping the first stent yet still placed proximal to it. A 5 mm balloon was then used to post dilate up and down the stent. At the end of the procedure angiography demonstrated wide patency of the right superficial femoral artery going into the right popliteal artery with excellent distal runoff. At the end of the procedure the sheath was taped into place patient was transferred to the postop holding in stable condition for postoperative care and eventual sheath removal ANGIOGRAPHIC RESULTS The distal abdominal aorta has mild atheromatous plaque. The left renal artery singular and normal The bilateral common and external iliac arteries are widely patent with mild atheromatous plaque. The bilateral internal iliac arteries have proximal 70% concentric stenoses Bilateral common femoral arteries are patent The bilateral profunda femoris arteries are patent The right superficial femoral artery has severe disease in its proximal segment and then occluded in its mid segment. The popliteal artery then reconstitutes and provides three-vessel flow below the right knee The left superficial femoral artery is also proximally occluded and reconstitutes at the popliteal level. The popliteal artery has diffuse 30% narrowing and then provides two-vessel runoff below the knee on the left side with a subtotally occluded proximal left anterior tibialis artery IMPRESSION Occluded right superficial femoral artery as described above with excellent revascularization 100% occlusion reduced to 0% with 2 bare-metal self-expanding stents placed in a contiguous manner giving excellent inline flow with three-vessel runoff below the knee on the right side Chronically occluded left superficial femoral artery with two-vessel runoff below the knee on the left side PLAN 1. Aspirin and Plavix for 1 month followed by Xarelto 2.5 twice daily plus aspirin 81 mg daily 2. Physical therapy 3. Avoidance of tobacco products 4. Risk factor modification 5. LDL less than 55 6. Medical management for the left leg and mass this becomes problematic and requires gerardo
--- NOTE | 2019-09-04 12:08 | XR_ITS ---
PROCEDURE: XR FOOT RT MIN 3V CLINICAL INDICATION: possible osteomyelitis COMPARISON: FTL3 FOOT-LT-3 VIEWS from 08/03/2015 FTR3 FOOT-RT-3 VIEWS from 12/31/2015 FTR3 FOOT-RT-3 VIEWS from 05/24/2016 [id number] XR foot LT min 3V from 10/22/2017 US ARTERIAL LOWER EXT REST from 09/04/2019 CL BOLUS STANLEY AORTAGRAM BI from 09/04/2019 FINDINGS: There has been amputation at the mid to distal aspect of the 1st metatarsal with an old fracture of the mid aspect of the 1st metatarsal. There is bandage artifact at this area. No aggressive bony destructive process apparent. No soft tissue gas apparent. There are 2 well-circumscribed calcific densities at the tip of the amputation site possibly related to residual sesamoid bones. IMPRESSION: Prior amputation of the mid to distal 1st metatarsal Dictated by: Sidney Napoles MD 09/04/2019 15:57 Electronically signed by Sidney Napoles MD in [facility] 09/04/2019 15:57
--- NOTE | 2019-09-04 12:21 | HMH.HP ---
*Admission Date: 09/04/19 *Chief complaint: right foot diabetic ulcer, abscess, and cellulitis *History of present illness: Ms. Marinelli is a 49-year-old female with a history of type 2 diabetes, hypertension, history of strokes, diabetic neuropathy, peripheral vascular disease, and history of osteomyelitis with amputation of the right great toe. She is normally followed by Dr. Cano at [facility] who did her previous foot surgery. She states she has not seen him since March. She has had ulcers on the bottom of her feet off and on for quite some time. She states over the past week she has developed an ulcer on the lateral aspect of her foot just below her fifth digit. Her daughter has been wrapping it at home. She noticed she began having pain into her kim and some redness on the kim in the last few days. She has not noticed any fever but states she generally feels bad. She presented to the office today and the foot was unwrapped revealing a significant diabetic ulcer with possible abscess formation and cellulitis up to the mid kim. Her white blood cell count was 19.9. A wound culture was taken of the foot and Dr. Aly was contacted as the patient did not want to go to [place]. Dr. Aly wanted the patient admitted and will consult on her today. She will also need a cardiology consult due to her peripheral vascular disease and lack of pulses in the right foot. [facility] History I have reviewed the patient's past medical history: Yes Medical History: Reports:: Cardiomyopathy, Coronary Artery Disease, Cerebrovascular Accident, Diabetes Mellitus Type 2, Hyperlipidemia, Hypertension, Migraine, Peripheral Vascular Disease Denies:: Cancer, Diabetes Mellitus Type 1, Internal Pacemaker, MRSA, Seizures *Have you ever received a pneumonia vaccine?: No *Have you received a flu vaccine this season?: No Comment:: History of osteomyelitis of the right foot with right great toe amputation Other Surgeries: Yes: Cardiac Catheterization, Cholecystectomy, Coronary Stent, Tubal Ligation. 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.) Fractures: No Comment: Vascular surgery right leg - *Social History Smoking Status: Current every day smoker Tobacco Type: cigarettes # Packs/Day (cigarettes): 1 #Yrs smoked (if former smoker): 30 Alcohol Intake: never Substance Use Type: denies use *Occupational Status:: disabled Housing: house Household Members: children *Travel in the last 8 weeks: None Family Hx:: Asthma, Coronary Artery Disease, Diabetes, Heart Attack Review of Systems - Constitutional Reports malaise, Reports weakness, Denies chills, Denies fever(s) - Eyes Denies blurry vision, Denies double vision - ENT Denies nasal congestion, Denies sore throat - *Cardiovascular Denies chest pain, Denies shortness of breath - *Respiratory Denies cough, Denies shortness of breath - *Gastrointestinal Denies abdominal pain, Denies loose stools, Denies nausea, Denies vomiting - *Genitourinary Denies difficulty urinating, Denies painful urination - *Musculoskeletal Reports joint pain (right lower leg) - Integumentary/Breasts Reports redness (right lower leg), Reports non-healing lesions (right foot) - *Neurologic Reports weakness, Denies dizziness, Denies headache(s) Meds Home Medications Medication Instructions Recorded Confirmed Type Amitriptyline HCl 100 mg PO HS 10/22/17 12/13/18 History Gabapentin [Gabapentin 400mg Cap] 600 mg PO TID 10/22/17 12/13/18 History Glimepiride [Amaryl] 4 mg PO DAILY 10/22/17 12/13/18 History Insulin Lispro [Humalog] 4 unit SQ DAILY 10/22/17 12/13/18 History Aspirin [Aspirin 81mg chewable 81 mg PO DAILY 10/02/18 12/13/18 History tab] Clopidogrel Bisulfate [Plavix 75mg 75 mg PO DAILY 10/02/18 12/13/18 History Tab] lisinopriL [Lisinopril 2.5mg Tab] 2.5 mg PO HS 10/02/18 12/13/18 History Amlodipine Besylate [Amlodipine 5 mg PO DAILY 10/03/18 12/13/18 History 5mg tab] Insul
--- NOTE | 2019-09-04 12:42 | XR_ITS ---
PROCEDURE: XR FOOT LT MIN 3V CLINICAL INDICATION: Prior amp Follow-up amputation, pain COMPARISON: FTL3 FOOT-LT-3 VIEWS from 08/03/2015 FTR3 FOOT-RT-3 VIEWS from 12/31/2015 FTR3 FOOT-RT-3 VIEWS from 05/24/2016 [id number] XR foot LT min 3V from 10/22/2017 FINDINGS: There has been amputation at the distal aspect of the 5th metatarsal. Amputation site is sharp with no evidence underlying osteomyelitis. Fifth toe is in satisfactory position. The joint spaces are well-preserved. No significant degenerative/arthritic changes. No erosive changes evident. Other findings:None. IMPRESSION: Prior amputation at the distal 5th metatarsal with no acute finding Dictated by: Sidney Napoles MD 09/04/2019 15:58 Electronically signed by Sidney Napoles MD in [facility] 09/04/2019 15:58
--- NOTE | 2019-09-04 12:45 | HMH.ORTHOCON ---
*Admission Date: 09/04/19 *Reason for consult:: Right DM foot infection *History of present illness: Ms. Marinelli is a 49-year-old female with a history of type 2 diabetes, hypertension, history of strokes, diabetic neuropathy, peripheral vascular disease, and history of osteomyelitis with amputation of the right great toe and left 5th metatarsal partial amp. She is normally followed by Dr. Cano at [facility] who did her previous foot surgery. She states she has not seen him since March. She has had ulcers on the bottom of her feet off and on for quite some time. She states over the past week she has developed an ulcer on the lateral aspect of her foot just below her fifth digit, after she went swimming. Her daughter has been wrapping it at home. She noticed she began having pain into her kim and some redness on the kim in the last few days. She has not noticed any fever but states she generally feels bad. She presented to the office today and the foot was unwrapped revealing a significant diabetic ulcer with possible abscess formation and cellulitis up to the mid kim. Her white blood cell count was 19.9. A wound culture was taken of the foot and Dr. Aly was contacted as the patient did not want to go to [place]. Dr. Aly wanted the patient admitted and will consult on her today. She will also need a cardiology consult due to her peripheral vascular disease and lack of pulses in the right foot. Review of Systems - *Neurologic Reports weakness, Denies dizziness, Denies headache(s) [facility] History I have reviewed the patient's past medical history: Yes Medical History: Reports:: Cardiomyopathy, Coronary Artery Disease, Cerebrovascular Accident, Diabetes Mellitus Type 2, Hyperlipidemia, Hypertension, Migraine, Peripheral Vascular Disease Denies:: Cancer, Diabetes Mellitus Type 1, Internal Pacemaker, MRSA, Seizures *Have you ever received a pneumonia vaccine?: No *Have you received a flu vaccine this season?: No Other Surgeries: Yes: No Previous Surgery, Cardiac Catheterization, Cholecystectomy, Coronary Stent, Tubal Ligation. 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.) Fractures: No - *Social History Smoking Status: Current every day smoker Tobacco Type: cigarettes # Packs/Day (cigarettes): 1 #Yrs smoked (if former smoker): 30 Alcohol Intake: never Substance Use Type: denies use *Occupational Status:: disabled Housing: house Household Members: children *Travel in the last 8 weeks: None Family Hx:: Asthma, Coronary Artery Disease, Diabetes, Heart Attack Meds Home Medications Medication Instructions Recorded Confirmed Type Amitriptyline HCl 100 mg PO HS 10/22/17 12/13/18 History Gabapentin [Gabapentin 400mg Cap] 600 mg PO TID 10/22/17 12/13/18 History Glimepiride [Amaryl] 4 mg PO DAILY 10/22/17 12/13/18 History Insulin Lispro [Humalog] 4 unit SQ DAILY 10/22/17 12/13/18 History Aspirin [Aspirin 81mg chewable 81 mg PO DAILY 10/02/18 12/13/18 History tab] Clopidogrel Bisulfate [Plavix 75mg 75 mg PO DAILY 10/02/18 12/13/18 History Tab] lisinopriL [Lisinopril 2.5mg Tab] 2.5 mg PO HS 10/02/18 12/13/18 History Amlodipine Besylate [Amlodipine 5 mg PO DAILY 10/03/18 12/13/18 History 5mg tab] Insulin Glargine,Hum.rec.anlog 10 unit SQ HS 10/11/18 12/13/18 History [Lantus Insulin 100units/mL 10mL vial] atorvastatin 10 mg tablet 10 mg PO HS #30 tab 07/16/19 Rx furosemide 40 mg tablet 40 mg PO DAILY #30 tab 07/16/19 Rx metoprolol succinate 100 mg 100 mg PO DAILY #30 tab 07/16/19 Rx tablet,extended release 24 hr Allergies Allergy/AdvReac Type Severity Reaction Status Date / Time No Known Allergies Allergy Verified 12/13/18 14:15 Exam Vital signs and Labs for Last 24 Hours: Temp Pulse Resp BP Pulse Ox 98.2 F 82 20 108/67 L 99 09/04/19 12:18 09/04/19 12:18 09/04/19 12:18 09/04/19 12:18 09/04/19 12:18 I & O for Last 24 hours: Intake & Output 06
--- NOTE | 2019-09-04 13:40 | XR_ITS ---
PROCEDURE: XR CHEST PORTABLE CLINICAL HISTORY: cad Coronary artery disease, cough COMPARISON: CXR CHEST(2 VIEWS-NOT PORTABLE) from 04/09/2015 CXR2V XR chest 2V from 12/12/2017 Chest from 10/02/2018 FINDINGS: Mild cardiomegaly. Coronary artery stent is present The lungs are clear without infiltrates, suspicious nodules, or pleural effusions. No acute bony abnormalities. IMPRESSION: Mild cardiomegaly otherwise negative Dictated by: Sidney Napoles MD 09/04/2019 17:14 Electronically signed by Sidney Napoles MD in [place] 09/04/2019 17:14
--- NOTE | 2019-09-04 13:41 | HMH.CNCARD ---
History of Present Illness Consult date: 09/04/19 Requesting physician: Zuleyma Joya Consult reason: pre-op evaluation Chief complaint: R foot pain, PAD Additional Medical History:: 1. Coronary artery disease A. Echocardiogram 11/2017, LVEF 20 to 25%, moderate to severe mitral regurgitation, severe tricuspid regurgitation, multiple segmental wall motion abnormalities B. Left cardiac catheterization 12/2017, stent to the LAD, stent to the ramus intermedius, stent to the right coronary artery C. Echocardiogram 01/2019, LVEF 45 to 50% with multiple segmental wall motion abnormalities. Mild TR and mild MR 2. Hypertension 3. Hyperlipidemia 4. Peripheral arterial disease 5. Diabetes mellitus 6. Cerebrovascular accident 7. DVT 8. Ischemic cardiomyopathy History of present illness: This is a 49-year-old white female with a history significant for coronary artery disease status post multivessel stenting, peripheral arterial disease, CVAs, hypertension, hyperlipidemia, type 2 diabetes and a history of osteomyelitis with amputation of the right great toe. The patient was seen by her primary care provider today and admitted to the hospital for a significant diabetic ulcer to her right foot with possible abscess and cellulitis to the mid kmi. The patient states that she usually follows with Dr. kaminski at [place] who did her previous foot surgery. She was last seen by him in March. She does report having ulcers on her feet off and on for quite some time. The ulcer to her right foot she states that she noticed approximately last week. It is on the lateral aspect of her right foot just below her fifth digit. She states that her and her daughter has been wrapping her foot at home on their own. She started having pain and redness in her kim over the last few days. She denies any fever but says that she just does not feel well. She is having a lot of neuropathic pain in both of her lower extremities but the right is worse than the left. She states that she cannot feel her legs when she is walking but the neuropathic pain is severe at this point. Upon admission she was found to have an elevated white blood cell count. Dr. Aly has been consulted and the patient will likely have to undergo surgical intervention on her right foot but given her severely diminished ALAN, which was 0.48 on the right lower extremity and 0.53 in the left lower extremity, Dr. Aly would like for her vascular status to be evaluated prior to proceeding with surgical intervention. She denies any chest pain or pressure. She denies any shortness of breath or edema. She denies any fever, chills, nausea, vomiting, diarrhea, PND or orthopnea. [facility] History I have reviewed the patient's past medical history: Yes Medical History: Reports:: Cardiomyopathy, Coronary Artery Disease, Cerebrovascular Accident, Deep Vein Thrombosis, Diabetes Mellitus Type 2, Hyperlipidemia, Hypertension, Migraine, Peripheral Vascular Disease Denies:: Cancer, Diabetes Mellitus Type 1, Internal Pacemaker, MRSA, Seizures *Have you ever received a pneumonia vaccine?: No *Have you received a flu vaccine this season?: No Other Surgeries: Yes: No Previous Surgery, Cardiac Catheterization, Cholecystectomy, Coronary Stent, Tubal Ligation. 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.) Fractures: No - *Social History Educational Level: Completed High School Smoking Status: Current every day smoker Tobacco Type: cigarettes # Packs/Day (cigarettes): 1 #Yrs smoked (if former smoker): 30 Alcohol Intake: never Substance Use Type: denies use *Occupational Status:: disabled Housing: house Household Members: children *Travel in the last 8 weeks: None Family Hx:: Asthma, Coronary Artery Disease, Diabetes, Heart Attack Meds Home Medications Medication Instructions Recorded Confirmed Type Amitriptyline HCl 100 mg PO HS 10/22/17 12/13/18 History Gabapentin [Gabapentin 400mg Cap] 600 mg PO TID
[2019-09-04 13:58] LABS: Basophils # 0.1 K/mm3 (0-0.2); Basophils % 0.6 % (0.1-2.0); Eosinophils # 0.2 K/mm3 (0.0-0.4); Eosinophils % 1.1 % (0.1-12.0); Hematocrit 42.7 % (37.0-47.0); Hemoglobin 14.4 g/dL (12.2-16.2); Lymphocytes # 2.2 K/mm3 (0.7-4.5); Lymphocytes % 11.8 % (10-50); Mean Corpuscular HGB Conc 33.6 g/dL (31.8-35.4); Mean Corpuscular Hemoglobin 30.2 pg (27.0-31.2); Mean Corpuscular Volume 89.9 fl (81-99); Monocytes % 5.3 % (1.7-9.3); Neutrophils # 15.2 K/mm3 (1.8-7.8); Neutrophils % 81.3 % (37.0-80.0); Platelet Count 534 K/mm3 (142-424); Red Blood Count 4.75 M/mm3 (4.20-5.40); Red Cell Distribution Width 12.8 % (11.5-17.5); White Blood Count 18.7 K/mm3 (4.8-10.8)
[2019-09-04 14:04] LABS: MANUAL DIFFERENTIAL MANUAL DIFFERENTIAL (MANUAL DIFF)
[2019-09-04 14:12] LABS: Eosinophils % 1 % (0-3); Lymphocytes % 11 % (10-50); Monocytes % 4 % (2-9); Neutrophils % 84 % (42-76); RBC Morphology Normal; Total Cells Counted 100
[2019-09-04 14:13] LABS: Adenovirus,PCR Not Detected (NotDetected); Bordetella Pertussis Not Detected (NotDetected); Chlamydophila Pneumoniae, PCR Not Detected (NotDetected); Coronavirus 19, PCR Not Detected (NotDetected); Coronavirus 229E Not Detected (NotDetected); Coronavirus NL63 Not Detected (NotDetected); Coronavirus OC43 Not Detected (NotDetected); Coronovirus HKU1,PCR Not Detected (NotDetected); Human Metapneumovirus Not Detected (NotDetected); Influenza A, PCR Not Detected (NotDetected); Influenza AH1, 2009 Not Detected (NotDetected); Influenza AH1, PCR Not Detected (NotDetected); Influenza AH3,PCR Not Detected (NotDetected); Influenza B, PCR Not Detected (NotDetected); Mycoplasma Pneumoniae, PCR Not Detected (NotDected); Parainfluenza 1, PCR Not Detected (NotDetected); Parainfluenza 2, PCR Not Detected (NotDetected); Parainfluenza 3, PCR Not Detected (NotDetected); Parainfluenza 4, PCR Not Detected (NotDetected); Respiratory Syncytial Virus Not Detected (NotDetected); Rhinovirus/Enterovirus Not Detected (NotDetected)
[2019-09-04 14:13] LABS: Platelet Estimate Slight Increase
[2019-09-04 14:17] LABS: Alanine Aminotransferase 16 U/L (12-78); Albumin Level 4.4 g/dl (3.5-5.0); Albumin/Globulin Ratio 0.9 (1.1-1.8); Alkaline Phosphatase 217 U/L (38-126); Anion Gap 14.8 mEq/L (5-15); Aspartate Amino Transferase 33 U/L (14-36); Bilirubin,Total 0.6 mg/dl (0.2-1.3); Blood Urea Nitrogen 9 mg/dl (7-17); Calcium 9.9 mg/dl (8.4-10.2); Carbon Dioxide 32 mmol/L (22.0-30.0); Chloride 93 mmol/L (98-107); Creatinine Clearance Estimated 76 mL/min (50-200); Estimated Glomerular Filt Rate 67 ml/min (>60); GFR (African American) 81 ML/MIN (>60); Globulin 5.1 g/dL (1.3-3.2); Glucose 295 mg/dl (74-100); Potassium 3.8 mmoL/L (3.5-5.1); Sodium 136 mmol/L (136-145); Total Protein,Serum 9.5 g/dl (6.3-8.2)
[2019-09-04 14:22] LABS: C-Reactive Protein 183.7 mg/L (0-4)
[2019-09-04 14:25] LABS: Hemoglobin A1C 9.9 % (4.0-6.0)
[2019-09-04 14:26] LABS: Erythrocyte Sedimentation Rate 37 mm/hr (0-20)
--- NOTE | 2019-09-04 14:51 | HMH.PHACONS ---
- Pharmacy Consult Date: 09/04/19 Time: 14:51 Referring provider: DR. ARMENDARIZ Reason for Consult:: VANCOMYCIN DOSING Allergies and ADEs:: Allergies Allergy/AdvReac Type Severity Reaction Status Date / Time No Known Allergies Allergy Verified 12/13/18 14:15 Home Medications:: Home Medications Medication Instructions Recorded Confirmed Type Amitriptyline HCl 100 mg PO HS 10/22/17 12/13/18 History Gabapentin [Gabapentin 400mg Cap] 600 mg PO TID 10/22/17 12/13/18 History Glimepiride [Amaryl] 4 mg PO DAILY 10/22/17 12/13/18 History Insulin Lispro [Humalog] 4 unit SQ DAILY 10/22/17 12/13/18 History Aspirin [Aspirin 81mg chewable 81 mg PO DAILY 10/02/18 12/13/18 History tab] Clopidogrel Bisulfate [Plavix 75mg 75 mg PO DAILY 10/02/18 12/13/18 History Tab] lisinopriL [Lisinopril 2.5mg Tab] 2.5 mg PO HS 10/02/18 12/13/18 History Amlodipine Besylate [Amlodipine 5 mg PO DAILY 10/03/18 12/13/18 History 5mg tab] Insulin Glargine,Hum.rec.anlog 10 unit SQ HS 10/11/18 12/13/18 History [Lantus Insulin 100units/mL 10mL vial] atorvastatin 10 mg tablet 10 mg PO HS #30 tab 07/16/19 Rx furosemide 40 mg tablet 40 mg PO DAILY #30 tab 07/16/19 Rx metoprolol succinate 100 mg 100 mg PO DAILY #30 tab 07/16/19 Rx tablet,extended release 24 hr Height: 1.65 m Weight: 62.596 kg Laboratory Results:: Laboratory Results - last 24 hr 09/04/19 13:00: Chlamy pneumoniae PCR Not detected, Adenovirus (PCR) Not detected, B. pertussis DNA (PCR) Not detected, Coronavirus OC43 (PCR) Not detected, Coronavirus HKU1 (PCR) Not detected, Coronavirus 229E (PCR) Not detected, COVID-19 PCR Not detected, Coronavirus NL63 (PCR) Not detected, Human Metapneumovir PCR Not detected, Influenza A (H1) PCR Not detected, Influ A (H1N1/09) PCR Not detected, Influenza A (H3) PCR Not detected, Influenza Type A (PCR) Not detected, Influenza Type B (PCR) Not detected, M. pneumoniae (PCR) Not detected, Parainfluenza 1 (PCR) Not detected, Parainfluenza 2 (PCR) Not detected, Parainfluenza 3 (PCR) Not detected, Parainfluenza 4 (PCR) Not detected, RSV (PCR) Not detected, Entero/Rhino (PCR) Not detected 09/04/19 13:35: WBC 18.7 H, RBC 4.75, Hgb 14.4, Hct 42.7, MCV 89.9, MCH 30.2, MCHC 33.6, RDW 12.8, Plt Count 534 H, MPV 7.0 L, Neut % (Auto) 81.3 H, Lymph % (Auto) 11.8, [place] % (Auto) 5.3, Eos % (Auto) 1.1, Baso % (Auto) 0.6, Neut # (Auto) 15.2 H, Lymph # (Auto) 2.2, [place] # (Auto) 1.0, Eos # (Auto) 0.2, Baso # (Auto) 0.1, Total Counted 100, Neutrophils % (Manual) 84 H, Lymphocytes % (Manual) 11, Monocytes % (Manual) 4, Eosinophils % (Manual) 1, Platelet Estimate Slight increase, RBC Morphology Normal 09/04/19 13:35: Sodium 136, Potassium 3.8, Chloride 93 L, Carbon Dioxide 32 H, Anion Gap 14.8, BUN 9, Creatinine 0.90, Estimated Creat Clear 76, Estimated GFR 67, Est GFR ( Amer) 81, Glucose 295 H, Calcium 9.9, Total Bilirubin 0.6, AST 33, ALT 16, Alkaline Phosphatase 217 H, C-Reactive Protein 183.7 H, Total Protein 9.5 H, Albumin 4.4, Globulin 5.1 H, Albumin/Globulin Ratio 0.9 L 09/04/19 13:35: ESR 37 H 09/04/19 13:35: Hemoglobin A1c 9.9 H Medical History: Reports:: Cardiomyopathy, Coronary Artery Disease, Cerebrovascular Accident, Deep Vein Thrombosis, Diabetes Mellitus Type 2, Hyperlipidemia, Hypertension, Migraine, Peripheral Vascular Disease Denies:: Cancer, Diabetes Mellitus Type 1, Internal Pacemaker, MRSA, Seizures Assessment and Plan (1) Foot abscess, right Current visit: Yes Status: Acute Category: Medical Code(s): L02.611 - Cutaneous abscess of right foot (2) Abnormal ankle brachial index (ALAN) Current visit: Yes Status: Acute Category: Medical Code(s): R68.89 - Other general symptoms and signs (3) PAD (peripheral artery disease) Current visit: Yes Status: Chronic Category: Medical Code(s): I73.9 - Peripheral vascular disease, unspecified (4) Right foot ulcer Current visit: Yes Status: Acute Category: Medical Code
[2019-09-04 16:02] LABS: CATHL Activated Clotting Time 184 SEC (74-125)
--- NOTE | 2019-09-04 16:04 | HMH.PHAVTE ---
[facility] Pharmacy VTE Monitoring - Patient Demographics Admission date: 09/04/19 Report Date: 09/04/19 Time: 16:04 Allergies/Adverse Reactions: Patient Allergies No Known Allergies Allergy (Verified 12/13/18 14:15) Height: 1.65 m Weight: 62.596 kg Patient Problems: Current Active Problems Cellulitis and abscess of foot (Acute) Leukocytosis (Acute) History of CVA (cerebrovascular accident) (Chronic) Diabetic infection of right foot (Acute) Right foot ulcer (Acute) Foot abscess, right (Acute) PAD (peripheral artery disease) (Chronic) Abnormal ankle brachial index (ALAN) (Acute) Peripheral neuropathy (Acute) - VTE Risk Labs: VTE Related Lab Results Hgb 14.4 g/dL (12.2-16.2) 09/04/19 13:35 Hct 42.7 % (37.0-47.0) 09/04/19 13:35 Plt Count 534 K/mm3 (142-424) H 09/04/19 13:35 BUN 9 mg/dl (7-17) 09/04/19 13:35 Creatinine 0.90 mg/dl (0.52-1.04) 09/04/19 13:35 Estimated Creat Clear 76 mL/min (50-200) 09/04/19 13:35 VTE Score: 1 - Prophylaxis VTE Prophylaxis Ordered?: Yes Types of VTE Prophylaxis: TEDS Knee High Location of Applied Device: Bilateral Lower Extremeties - VTE Diagnosis Confirmed Treatment or plan recommended: Continue Current Treatment
[2019-09-04 16:58] LABS: POC Glucose,Bedside 219 (70-110)
--- NOTE | 2019-09-04 17:40 | PC.NURSE ---
PT IS RESTING IN BED. NO COMPLAINTS OF DISCOMFORT. PT ARRIVED BACK TO THE FLOOR AT 1600 FROM [facility]. PT HAS TO REMAIN FLAT TILL 2024.ALERT AND ORIENTED X4. BEFORE PT WENT TO THE [facility] WORKED ON PT'S FOOT AT BEDSIDE. VERBAL ORDER WAS GIVEN FOR A ONE TIME DOSE OF MORPHINE 2 MG IV. PT'S DRESSING TO THE LT FOOT HAS BETADINE SOAKED 4X4 AND SHARON WRAP. PALPABLE BUT VERY WEAK PEDAL PULSES. LUNG SOUNDS CLEAR. BOWEL SOUNDS NORMAL. CATH VSS. THE PLAN IS TO TAKE PT TO SURGERY AT 1130 TOMORROW. RADIOLOGY WAS NOTIFIED TO LET THEM KNOW THAT WAS OKAY WITH PT NOT HAVING CT RIGHT AWAY BUT WILL NEED IT DONE BEFORE SURGERY IN THE MORNING.
--- NOTE | 2019-09-04 19:12 | PC.NURSE ---
report given to carloz
[2019-09-04 23:28] LABS: POC Glucose,Bedside 169 (70-110)
[2019-09-05] VITALS (21 sets, daily range): BP systolic 102–135; BP diastolic 51–78; PULSE 64–103; RESP 14–20; TEMP 36.6–37.1; O2SAT 88–100; BMI 23.0
[2019-09-05 06:17] LABS: Chloride 97 mmol/L (98-107); Potassium 3.9 mmoL/L (3.5-5.1); Sodium 133 mmol/L (136-145)
[2019-09-05 06:18] LABS: Basophils # 0.1 K/mm3 (0-0.2); Basophils % 0.5 % (0.1-2.0); Eosinophils # 0.1 K/mm3 (0.0-0.4)
[2019-09-05 06:19] LABS: Bilirubin,Unconjugated 0.2 mg/dL (0.0-1.1); Blood Urea Nitrogen 8 mg/dl (7-17); Creatinine Clearance Estimated 86 mL/min (50-200); Estimated Glomerular Filt Rate 77 ml/min (>60); GFR (African American) 93 ML/MIN (>60)
[2019-09-05 06:20] LABS: Alanine Aminotransferase 23 U/L (12-78); Albumin Level 3.5 g/dl (3.5-5.0); Alkaline Phosphatase 241 U/L (38-126); Anion Gap 9.9 mEq/L (5-15); Aspartate Amino Transferase 31 U/L (14-36); Bilirubin,Direct 0.3 mg/dl (0.0-0.4); Bilirubin,Indirect 0.3 mg/dL (0.0-0.9); Bilirubin,Total 0.6 mg/dl (0.2-1.3); Carbon Dioxide 30 mmol/L (22.0-30.0); Chol/HDL Ratio 6.6 (1-3.5); Cholesterol 132 mg/dl (140-200); Glucose 251 mg/dl (74-100); HDL Cholesterol 20 mg/dl (40-60); Total Protein,Serum 7.6 g/dl (6.3-8.2); Triglycerides 166 mg/dl (30-150); VLDL Cholesterol 33 mg/dL (0-40)
[2019-09-05 06:28] LABS: Eosinophils % 0.6 % (0.1-12.0); Hematocrit 37.2 % (37.0-47.0); Hemoglobin 12.8 g/dL (12.2-16.2); Lymphocytes # 2.3 K/mm3 (0.7-4.5); Lymphocytes % 13.7 % (10-50); Mean Corpuscular HGB Conc 34.4 g/dL (31.8-35.4); Mean Corpuscular Hemoglobin 30.1 pg (27.0-31.2); Mean Corpuscular Volume 87.3 fl (81-99); Mean Platelet Volume 7.3 fl (7.4-10.4); Monocytes # 0.7 K/mm3 (0.1-1.0); Monocytes % 4.2 % (1.7-9.3); Neutrophils # 13.4 K/mm3 (1.8-7.8); Platelet Count 496 K/mm3 (142-424); Red Blood Count 4.26 M/mm3 (4.20-5.40); Red Cell Distribution Width 12.7 % (11.5-17.5); White Blood Count 16.6 K/mm3 (4.8-10.8)
[2019-09-05 06:30] LABS: MANUAL DIFFERENTIAL MANUAL DIFFERENTIAL (MANUAL DIFF)
[2019-09-05 06:31] LABS: Direct LDL Cholesterol 76.15 mg/dL (100-129)
[2019-09-05 06:35] LABS: Calcium 8.7 mg/dl (8.4-10.2)
--- NOTE | 2019-09-05 06:42 | ECG_ITS ---
APPROVED REPORT Exam: Resting ECG HR:93 bpm ECG Measurements Heart Rate 93 AXES ID 152 P 34 QRSd 120 QRS -38 QT 368 T 118 QTc 457 <Conclusion> Normal sinus rhythm Left axis deviation Left ventricular hypertrophy with QRS widening and repolarization abnormality Cannot rule out Septal infarct, age undetermined Abnormal ECG Electronically signed by : Kennedy Selby, 09/06/2019 17:42:11
[2019-09-05 07:01] LABS: POC Glucose,Bedside 241 (70-110)
[2019-09-05 07:38] LABS: Lymphocytes % 12 % (10-50); Monocytes % 6 % (2-9); Neutrophils % 82 % (42-76); Platelet Estimate Slight Increase; RBC Morphology Normal; Total Cells Counted 100
--- NOTE | 2019-09-05 07:38 | HMH.PHAINT ---
HOME MEDICATION RECONCILIATION COMPLETED USING LIST FROM PHARMACY AND DR MARTIN'S OFFICE
--- NOTE | 2019-09-05 07:47 | HMH.PNCARD ---
Subjective Date: 09/05/19 Time: 07:47 Principal diagnosis: cellulitis, right foot ulcer Interval history: 49 yo WF in wheelchair in room in [facility]. Denies any chest pain, pressure or tightness. Echo results pending. EKG is sinus with LAD and LVH with PRWP anteriorly. Exam Vital signs and Labs for Last 24 Hours: Temp Pulse Resp BP Pulse Ox 98.1 F 95 H 18 129/77 92 L 09/05/19 07:21 09/05/19 07:21 09/05/19 07:21 09/05/19 07:21 09/05/19 07:21 Laboratory Results - last 24 hr 09/04/19 13:00: Chlamy pneumoniae PCR Not detected, Adenovirus (PCR) Not detected, B. pertussis DNA (PCR) Not detected, Coronavirus OC43 (PCR) Not detected, Coronavirus HKU1 (PCR) Not detected, Coronavirus 229E (PCR) Not detected, COVID-19 PCR Not detected, Coronavirus NL63 (PCR) Not detected, Human Metapneumovir PCR Not detected, Influenza A (H1) PCR Not detected, Influ A (H1N1/09) PCR Not detected, Influenza A (H3) PCR Not detected, Influenza Type A (PCR) Not detected, Influenza Type B (PCR) Not detected, M. pneumoniae (PCR) Not detected, Parainfluenza 1 (PCR) Not detected, Parainfluenza 2 (PCR) Not detected, Parainfluenza 3 (PCR) Not detected, Parainfluenza 4 (PCR) Not detected, RSV (PCR) Not detected, Entero/Rhino (PCR) Not detected 09/04/19 13:35: WBC 18.7 H, RBC 4.75, Hgb 14.4, Hct 42.7, MCV 89.9, MCH 30.2, MCHC 33.6, RDW 12.8, Plt Count 534 H, MPV 7.0 L, Neut % (Auto) 81.3 H, Lymph % (Auto) 11.8, [place] % (Auto) 5.3, Eos % (Auto) 1.1, Baso % (Auto) 0.6, Neut # (Auto) 15.2 H, Lymph # (Auto) 2.2, [place] # (Auto) 1.0, Eos # (Auto) 0.2, Baso # (Auto) 0.1, Total Counted 100, Neutrophils % (Manual) 84 H, Lymphocytes % (Manual) 11, Monocytes % (Manual) 4, Eosinophils % (Manual) 1, Platelet Estimate Slight increase, RBC Morphology Normal 09/04/19 13:35: Sodium 136, Potassium 3.8, Chloride 93 L, Carbon Dioxide 32 H, Anion Gap 14.8, BUN 9, Creatinine 0.90, Estimated Creat Clear 76, Estimated GFR 67, Est GFR ( Amer) 81, Glucose 295 H, Calcium 9.9, Total Bilirubin 0.6, AST 33, ALT 16, Alkaline Phosphatase 217 H, C-Reactive Protein 183.7 H, Total Protein 9.5 H, Albumin 4.4, Globulin 5.1 H, Albumin/Globulin Ratio 0.9 L 09/04/19 13:35: ESR 37 H 09/04/19 13:35: Hemoglobin A1c 9.9 H 09/04/19 13:56: Activated Clotting Time 184 H* 09/04/19 16:46: POC Glucose 219 H 09/04/19 21:14: POC Glucose 169 H 09/05/19 05:50: WBC 16.6 H, RBC 4.26, Hgb 12.8 D, Hct 37.2, MCV 87.3, MCH 30.1, MCHC 34.4, RDW 12.7, Plt Count 496 H, MPV 7.3 L, Neut % (Auto) 81.0 H, Lymph % (Auto) 13.7, [place] % (Auto) 4.2, Eos % (Auto) 0.6, Baso % (Auto) 0.5, Neut # (Auto) 13.4 H, Lymph # (Auto) 2.3, [place] # (Auto) 0.7, Eos # (Auto) 0.1, Baso # (Auto) 0.1, Total Counted 100, Neutrophils % (Manual) 82 H, Lymphocytes % (Manual) 12, Monocytes % (Manual) 6, Platelet Estimate Slight increase, RBC Morphology Normal 09/05/19 05:50: Sodium 133 L, Potassium 3.9, Chloride 97 L, Carbon Dioxide 30, Anion Gap 9.9, BUN 8, Creatinine 0.80, Estimated Creat Clear 86, Estimated GFR 77, Est GFR ( Amer) 93, Glucose 251 H, Calcium 8.7 D, Total Bilirubin 0.6, Direct Bilirubin 0.3, Conjugated Bilirubin 0.0, Indirect Bilirubin 0.3, Unconjugated Bilirubin 0.2, AST 31, ALT 23 D, Alkaline Phosphatase 241 H, Total Protein 7.6, Albumin 3.5 D, Triglycerides 166 H, Cholesterol 132 L, LDL Cholesterol Direct 76.15 L, VLDL Cholesterol 33, HDL Cholesterol 20 L, Cholesterol/HDL Ratio 6.6 H 09/05/19 06:50: POC Glucose 241 H I & O for Last 24 hours: Intake & Output 09/02/19 09/03/19 09/04/19 09/05/19 11:59 11:59 11:59 11:59 Intake Total 639 / 639 Balance 639 / 639 Weight 138 lb 0.009 oz Microbiology Reports for the Last 24 Hours: Microbiology 09/04/19 13:25 Foot,Right - Drainage Gram Stain - Final 09/04/19 13:25 Foot,Right - Drainage Wound Culture - Preliminary Gram Negative Rods - *Routine HEENT Exam Head: Present: normocephalic Eye: Present: EOMI, PERRL ENT: Present: mucous membr
--- NOTE | 2019-09-05 08:00 | CT_ITS ---
PROCEDURE: CT FOOT RT WO CON CLINICAL HISTORY: Surgery planning amp: osteomyelitis Pain and swelling, infection COMPARISON: XR FOOT RT MIN 3V from 09/04/2019 TECHNIQUE: Axial images obtained with sagittal and coronal reformats. All CT scans at the facility use one or more dose reduction, viz: automated exposure control, ma/kV adjustment per patient size (including targeted exams where dose is matched to indication, i.e. head), or iterative reconstruction technique. FINDINGS: There has been prior amputation at the mid to distal shaft of the 1st metatarsal. The amputation site is well-circumscribed. There is some well-circumscribed calcific densities at amputation site without evidence of erosion. Soft tissue swelling is present along the amputation site. No soft tissue gas at this region. Soft tissue swelling is present also at the lateral aspect of the 5th metatarsophalangeal junction. There is a small amount of soft tissue gas at this region. There is thinning of the bony cortex with decreased density along the plantar surface at the head of the 5th metatarsal. This is best demonstrated on series 601, image 29 but also noted on sagittal reformatted images series 602, image 32 suspicious for an area of acute osteomyelitis. Soft tissue swelling is present at this region. Soft tissue gas is present along the distal aspect of the 5th metatarsal laterally. No acute fracture. No obvious localized fluid collection. Small abscess may not be seen without contrast. IMPRESSION: Soft tissue swelling with some sub adjacent soft tissue gas along the distal aspect of the 5th metatarsal consistent with cellulitis. The gas could be related to recent debridement or gas-forming infection. There is a small area of thinning of the bony cortex with decreased density along the plantar surface of the head of the 5th metatarsal suspicious for osteomyelitis. Prior amputation at the distal shaft of the 1st metatarsal. Dictated by: Sidney Napoles MD 09/05/2019 08:31 Electronically signed by Sidney Napoles MD in [place] 09/05/2019 08:31
--- NOTE | 2019-09-05 08:09 | PC.NURSE ---
Pt is A&O and slept well during the night. Hernandez in place draining ylw/pink urine to gravity. Of note, pt is menstruating. Betadine soaked gauze and anibal wrap in place to right foot, toes exposed. +2 pedal pulses. L groin cath site is soft slight bruising noted and dressing it C/D/I. VSS, call light within reach, will continue to monitor.
--- NOTE | 2019-09-05 08:14 | PC.NURSE ---
verified with dr cantu that patient could have plavix before surgery. mia graham stated okay to hold glimperide at this time since patient is npo and on sliding scale
--- NOTE | 2019-09-05 08:40 | HMH.ACPN2 ---
Internal Medicine - PN: Subj *Date: 09/05/19 *Time: 08:40 Interval history: Patient is feeling a little bit better this morning. She states the pain in her right leg has subsided some since receiving a stent yesterday by cardiology. There is less erythema. She states she has had no food since yesterday morning. She is scheduled for surgery on her foot today. Exam Vital signs and Labs for Last 24 Hours: Temp Pulse Resp BP Pulse Ox 98.1 F 95 H 18 129/77 92 L 09/05/19 07:21 09/05/19 07:21 09/05/19 07:21 09/05/19 07:21 09/05/19 07:21 Laboratory Results - last 24 hr 09/04/19 13:00: Chlamy pneumoniae PCR Not detected, Adenovirus (PCR) Not detected, B. pertussis DNA (PCR) Not detected, Coronavirus OC43 (PCR) Not detected, Coronavirus HKU1 (PCR) Not detected, Coronavirus 229E (PCR) Not detected, COVID-19 PCR Not detected, Coronavirus NL63 (PCR) Not detected, Human Metapneumovir PCR Not detected, Influenza A (H1) PCR Not detected, Influ A (H1N1/09) PCR Not detected, Influenza A (H3) PCR Not detected, Influenza Type A (PCR) Not detected, Influenza Type B (PCR) Not detected, M. pneumoniae (PCR) Not detected, Parainfluenza 1 (PCR) Not detected, Parainfluenza 2 (PCR) Not detected, Parainfluenza 3 (PCR) Not detected, Parainfluenza 4 (PCR) Not detected, RSV (PCR) Not detected, Entero/Rhino (PCR) Not detected 09/04/19 13:35: WBC 18.7 H, RBC 4.75, Hgb 14.4, Hct 42.7, MCV 89.9, MCH 30.2, MCHC 33.6, RDW 12.8, Plt Count 534 H, MPV 7.0 L, Neut % (Auto) 81.3 H, Lymph % (Auto) 11.8, [place] % (Auto) 5.3, Eos % (Auto) 1.1, Baso % (Auto) 0.6, Neut # (Auto) 15.2 H, Lymph # (Auto) 2.2, [place] # (Auto) 1.0, Eos # (Auto) 0.2, Baso # (Auto) 0.1, Total Counted 100, Neutrophils % (Manual) 84 H, Lymphocytes % (Manual) 11, Monocytes % (Manual) 4, Eosinophils % (Manual) 1, Platelet Estimate Slight increase, RBC Morphology Normal 09/04/19 13:35: Sodium 136, Potassium 3.8, Chloride 93 L, Carbon Dioxide 32 H, Anion Gap 14.8, BUN 9, Creatinine 0.90, Estimated Creat Clear 76, Estimated GFR 67, Est GFR ( Amer) 81, Glucose 295 H, Calcium 9.9, Total Bilirubin 0.6, AST 33, ALT 16, Alkaline Phosphatase 217 H, C-Reactive Protein 183.7 H, Total Protein 9.5 H, Albumin 4.4, Globulin 5.1 H, Albumin/Globulin Ratio 0.9 L 09/04/19 13:35: ESR 37 H 09/04/19 13:35: Hemoglobin A1c 9.9 H 09/04/19 13:56: Activated Clotting Time 184 H* 09/04/19 16:46: POC Glucose 219 H 09/04/19 21:14: POC Glucose 169 H 09/05/19 05:50: WBC 16.6 H, RBC 4.26, Hgb 12.8 D, Hct 37.2, MCV 87.3, MCH 30.1, MCHC 34.4, RDW 12.7, Plt Count 496 H, MPV 7.3 L, Neut % (Auto) 81.0 H, Lymph % (Auto) 13.7, [place] % (Auto) 4.2, Eos % (Auto) 0.6, Baso % (Auto) 0.5, Neut # (Auto) 13.4 H, Lymph # (Auto) 2.3, [place] # (Auto) 0.7, Eos # (Auto) 0.1, Baso # (Auto) 0.1, Total Counted 100, Neutrophils % (Manual) 82 H, Lymphocytes % (Manual) 12, Monocytes % (Manual) 6, Platelet Estimate Slight increase, RBC Morphology Normal 09/05/19 05:50: Sodium 133 L, Potassium 3.9, Chloride 97 L, Carbon Dioxide 30, Anion Gap 9.9, BUN 8, Creatinine 0.80, Estimated Creat Clear 86, Estimated GFR 77, Est GFR ( Amer) 93, Glucose 251 H, Calcium 8.7 D, Total Bilirubin 0.6, Direct Bilirubin 0.3, Conjugated Bilirubin 0.0, Indirect Bilirubin 0.3, Unconjugated Bilirubin 0.2, AST 31, ALT 23 D, Alkaline Phosphatase 241 H, Total Protein 7.6, Albumin 3.5 D, Triglycerides 166 H, Cholesterol 132 L, LDL Cholesterol Direct 76.15 L, VLDL Cholesterol 33, HDL Cholesterol 20 L, Cholesterol/HDL Ratio 6.6 H 09/05/19 06:50: POC Glucose 241 H I & O for Last 24 hours: Intake & Output 09/02/19 09/03/19 09/04/19 09/05/19 11:59 11:59 11:59 11:59 Intake Total 639 / 639 Output Total 500 / 500 Balance 139 / 139 Weight 138 lb 0.009 oz Microbiology Reports for the Last 24 Hours: Microbiology 09/04/19 13:25 Foot,Right - Drainage Gram Stain - Final 09/04/19 13:25 Foot,Right - Drainage Wound Culture - Preliminary Gra
[2019-09-05 11:14] LABS: POC Glucose,Bedside 187 (70-110)
--- NOTE | 2019-09-05 11:55 | PC.NURSE ---
Pt is off of floor for procedure in surgery
--- NOTE | 2019-09-05 12:01 | PC.NURSE ---
pt to OR via bed
[2019-09-05 12:43] LABS: Microscopic, Urine URINE MICROSCOPIC (MICROSCOPIC)
[2019-09-05 12:48] LABS: Urine Pregnancy, HCG Qual. Negative (Negative)
[2019-09-05 12:50] LABS: Appearance,Urine CLEAR (Clear); Bilirubin,Urine Negative (Negative); Blood, Urine 1+ (Negative); Color,Urine YELLOW (Yellow); Glucose,Urine (UA) Negative (Negative); Ketones,Urine 1+ (Negative); Leukocyte Esterase,Urine TRACE (Negative); Nitrate,Urine Negative (Negative); Protein,Urine TRACE (Negative); Specific Gravity, Urine 1.015 (1.005-1.030); Urobilinogen,Urine >=8.0 EU/dl (0.2)
[2019-09-05 12:56] LABS: Bacteria,Urine 1+ /lpf; Mucus,Urine Trace /lpf; Squamous Epithelial Cell,Urine Occasional #/hpf (0-5)
--- NOTE | 2019-09-05 13:45 | HMH.ANESCL ---
[facility] Anesthesia Checklist - Patient Identification Patient Identification: Arm Band - Structural Data Admitted From: Home Planned Operative Procedure/s: right transmetatarsal amputation Consent for Planned Operative Procedure(s) Verified: Yes Verified Documents: Surgical Consent, History and Physical - NPO Status Verified Time NPO: 00:00 - Additional verifications Anesthesia Reactions: No - Airway Assessment C-Spine Mobility Assessed: Yes TMJ Mobility Assessed: Yes Dentition: Edentulous - Neurological Assessment Level of Consciousness: Awake, Alert - Anesthesia Plan Anesthesia Risk discussed: Yes Anesthesia Plan: Verified ASA Class: III Anesthesia Type: General [facility] History I have reviewed the patient's past medical history: Yes Medical History: Reports:: Cardiomyopathy, Coronary Artery Disease, Cerebrovascular Accident, Deep Vein Thrombosis, Diabetes Mellitus Type 2, Hyperlipidemia, Hypertension, Migraine, Peripheral Vascular Disease Denies:: Cancer, Diabetes Mellitus Type 1, Internal Pacemaker, MRSA, Seizures *Have you ever received a pneumonia vaccine?: No *Have you received a flu vaccine this season?: No Anesthesia experience/problems:: nac Other Surgeries: Yes: Cardiac Catheterization, Cholecystectomy, Coronary Stent, Tubal Ligation. 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.) Fractures: No - *Social History Educational Level: Completed High School Smoking Status: Current every day smoker Tobacco Type: cigarettes # Packs/Day (cigarettes): 1 #Yrs smoked (if former smoker): 30 Alcohol Intake: never Substance Use Type: denies use *Occupational Status:: disabled Housing: house Household Members: children *Travel in the last 8 weeks: None Family Hx:: Asthma, Coronary Artery Disease, Diabetes, Heart Attack
--- NOTE | 2019-09-05 13:57 | HMH.ANESI ---
[facility] Anesthesia Record Part I Intake, IV Amount: 900 Estimated blood loss (mL): 10 Urine output (mL): 100 Blood Pressure: 102/61 SaO2: 92 Pulse Rate: 88 Respiratory Rate: 16 Temperature: 97.9 F Patient is:: Drowsy, Stable Stable to PACU at:: 13:55
--- NOTE | 2019-09-05 14:00 | XR_ITS ---
PROCEDURE: XR FOOT RT MIN 3V CLINICAL INDICATION: Post op amp Follow-up surgery/amputation COMPARISON: FTR3 FOOT-RT-3 VIEWS from 05/24/2016 [id number] XR foot LT min 3V from 10/22/2017 XR FOOT RT MIN 3V from 09/04/2019 XR FOOT LT MIN 3V from 09/04/2019 FINDINGS: There has been amputation at the base of the 5th metatarsal. There is an old amputation at the mid aspect of the 1st metatarsal. Good alignment with no other significant anomalies. IMPRESSION: Interval amputation at the base of the 5th metatarsal Dictated by: Sidney Napoles MD 09/05/2019 15:40 Electronically signed by Sidney Napoles MD in [facility] 09/05/2019 15:40
--- NOTE | 2019-09-05 14:10 | HMH.OPNOTE ---
Date of procedure: 09/05/19 Pre-op Diagnosis:: 1. Right foot gas gangrene 2. Right sub 5th metatarsal ulcer 3. 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 PAD 5. DM Post-op Diagnosis:: Same Procedure performed:: 1. Right foot incision and drainage 2. Right partial 5th ray amputation 3. Right foot irrigation and debridement 4. Right sub 5th metatarsal ulcer excision Surgeon:: Margaux Aly DPM [facility] TECH:: Barrett Devine Anesthesia: GETGracie Estimated blood loss (mL): 20 Clinical Note:: Mrs. Marinelli is a 49-year-old female who initially presented as a direct admission to the hospital yesterday 6? for a right diabetic foot infection. Patient has a history of foot amputation and significant peripheral arterial disease. Patient had abnormal ABIs and had a runoff procedure with stent yesterday with Dr. Martinez. X-rays and CTs of the right foot show gas gangrene infection with bony changes consistent with osteomyelitis. We discussed conservative versus surgical treatment options. Conservative treatment options include local wound care, oral and IV antibiotics, change in shoe wear, taping/padding, and off-loading. We discussed surgical intervention for debridement of nonviable soft tissue and bone including amputation. Patient understands that there is a chance that the toes can migrate to fill the gap or the foot may change shape after surgery. Patient also understands that they could have wound healing complications including delayed healing and infection. We discussed that if the wound does not heal, it is possible that they may need a more proximal amputation and could result in further loss of digits, loss of partial foot or loss of leg. We discussed the risks and benefits in great detail. Other surgical risks include: prolonged pain and swelling, further infection requiring oral or IV antibiotics, delay in healing of soft tissue or bone, nerve or blood vessel damage, CRPS/RSD, DVT, anesthesia complications, and even . All questions answered. Patient verbalized understanding. Consent obtained. Medical clearance per Dr. Parks/Zuleyma Joya. Operative findings:: Right foot has necrotic malodorous gangrenous tissue with a sub-fifth metatarsal ulcer. Ulcer excised in total. Periwound edema with a sending cellulitis noted. Purulent malodorous drainage noted. Creamy white purulent drainage expressed. The tissue surrounding the fifth MPJ was lanza and necrotic. Tracking noted across the plantar aspect of the MPJs. The tendon was nonviable. Fifth toe soft and crumbly. The fifth metatarsal head and neck were also soft and crumbly. At the level of the fifth metatarsal toward the base the peroneal tendon was intact and appeared viable and the bone was hard and normal in appearance. Post debridement all necrotic nonviable soft tissue and bone was resected. Some bleeding noted. There was a large wound and soft tissue defect noted to the right lateral foot overlying the fifth metatarsal site. Post debridement with 15 blade and forceps the wound base was 100% granular. It probed thru skin, subq and deep fascia. The wound measured: 9.5x4.2x2.9cm. Operative note:: On this same date and time patient deemed appropriate surgical candidate. She is transferred from the floor to preop and OR. General anesthesia induced. No tourniquet applied. Right lower extremity prepped and draped in normal sterile fashion. Right foot incision and drainage: Attention was directed to the right dorsal lateral foot where necrotic malodorous tissue was noted. An incision was mapped out surrounding the necrotic tissue. Utilizing a 15 blade and forceps dissection was carried down full-thickness to the level of the fifth MPJ. Necrotic nonviable tissue was removed in total. Purulent drainage was noted. Wound culture taken. Right excision of 5th metatarsal ulcer, irrigation and debridement right foot: Attention was then directed to the plantar aspect of the fifth metatarsal where a ulceration was noted
--- NOTE | 2019-09-05 14:27 | PC.NURSE ---
Received report from MANAGER ACCESSINGRID Ronquillo. She verified that pt has not received Zosyn IV abx in the OR. Pt will receive when she returns to the floor.
[2019-09-05 14:33] LABS: POC Glucose,Bedside 198 (70-110)
--- NOTE | 2019-09-05 14:39 | PC.NURSE ---
pt back from OR @ 1399.
--- NOTE | 2019-09-05 14:54 | PC.NURSE ---
1421-radiology at bedside 1426-detailed report called to INGRID Hill 1428-checked fsbs with results of 198, no further orders 1429-pt transported to 2nd floor room 211 via hospital bed per INGRID Mcgraw and INGRID Millan and left in care of INGRID Hill with bed locked in lowest position,vss, pt stable
--- NOTE | 2019-09-05 15:18 | PC.NURSE ---
VERFIED WITH DR ROMERO IT WAS OKAY TO WAIT UNTIL TOMORROW FOR PICC PLACEMENT
--- NOTE | 2019-09-05 17:05 | PC.NURSE ---
FSBS 512. Called Dr. Nickerson. New orders received for the following: give 20units Lispro insulin now and recheck FSBS before bed. Standing order initiated per Dr. Maldonado for a STAT blood sugar now.
[2019-09-05 17:35] LABS: Glucose,Random 502 mg/dL (74-100)
--- NOTE | 2019-09-05 17:38 | PC.NURSE ---
Critical blood sugar of [address] Nickerson aware.
--- NOTE | 2019-09-05 17:50 | PC.NURSE ---
Pt has been non-compliant with IS, her diet and positioning of RLE. She went to the OR today for a right 5th metatarsal amputation and an I&D of the right foot. Dressing is CDI. FSBS @ 1630 was 512. STAT Blood sugar afterwards was 502. Dr. Nickerson made aware. He ordered 20 units Lispro SSI and to recheck FSBS before bedtime. Pt is on a diabetic diet but eats what her family brings in. Left groin site from runoff is CDI. David noted with a slight pink tinged color. Vanc trough due tonight @ 2030. PICC line to be inserted tomorrow.
--- NOTE | 2019-09-05 20:41 | PC.NURSE ---
Pt's room air O2 sat = 94%
[2019-09-05 23:35] LABS: POC Glucose,Bedside 433 (70-110)
[2019-09-06] VITALS: BP 132/66; PULSE 96; RESP 17; TEMP 36.8; O2SAT 97
--- NOTE | 2019-09-06 03:41 | PC.NURSE ---
No acute changes this shift. Drsg to right foot has minimal soak through to heel. RLE elevated on pillow and + pedal pulses present. No c/o pain reported to staff. Pt educated on use of IS and returned demonstration, best of 1000 this shift witnessed by this RN. Hernandez is patent and anchored to bedside w/ clear, yellow urine draining. Cath care performed by staff. No BM this shift thus far. Left groin drsg c/d/i. VSS post-op. Vanc through due 09/05 @ 2029.
[2019-09-06 03:42] VITALS: BP 124/71; PULSE 85; RESP 16; TEMP 36.6; O2SAT 95
[2019-09-06 05:00] VITALS: BMI 21.3
[2019-09-06 06:40] LABS: Basophils # 0.1 K/mm3 (0-0.2); Basophils % 0.3 % (0.1-2.0); Eosinophils # 0.1 K/mm3 (0.0-0.4); Eosinophils % 0.3 % (0.1-12.0); Hematocrit 32.8 % (37.0-47.0); Hemoglobin 11.1 g/dL (12.2-16.2); Lymphocytes # 2.3 K/mm3 (0.7-4.5); Lymphocytes % 11.2 % (10-50); Mean Corpuscular HGB Conc 33.9 g/dL (31.8-35.4); Mean Corpuscular Hemoglobin 30.5 pg (27.0-31.2); Mean Corpuscular Volume 89.8 fl (81-99); Mean Platelet Volume 7.2 fl (7.4-10.4); Monocytes # 0.8 K/mm3 (0.1-1.0); Monocytes % 4.1 % (1.7-9.3); Neutrophils # 17.1 K/mm3 (1.8-7.8); Neutrophils % 84.1 % (37.0-80.0); Platelet Count 471 K/mm3 (142-424); Red Blood Count 3.65 M/mm3 (4.20-5.40); Red Cell Distribution Width 12.7 % (11.5-17.5); White Blood Count 20.3 K/mm3 (4.8-10.8)
[2019-09-06 06:40] LABS: POC Glucose,Bedside 277 (70-110)
[2019-09-06 06:53] LABS: MANUAL DIFFERENTIAL MANUAL DIFFERENTIAL (MANUAL DIFF)
[2019-09-06 06:55] LABS: Chloride 100 mmol/L (98-107); Potassium 4.2 mmoL/L (3.5-5.1); Sodium 136 mmol/L (136-145)
[2019-09-06 06:58] LABS: Alanine Aminotransferase 23 U/L (12-78); Albumin Level 3.4 g/dl (3.5-5.0); Albumin/Globulin Ratio 0.8 (1.1-1.8); Alkaline Phosphatase 249 U/L (38-126); Anion Gap 11.2 mEq/L (5-15); Aspartate Amino Transferase 25 U/L (14-36); Bilirubin,Total 0.5 mg/dl (0.2-1.3); Blood Urea Nitrogen 10 mg/dl (7-17); Calcium 8.6 mg/dl (8.4-10.2); Carbon Dioxide 29 mmol/L (22.0-30.0); Creatinine Clearance Estimated 80 mL/min (50-200); Estimated Glomerular Filt Rate 77 ml/min (>60); GFR (African American) 93 ML/MIN (>60); Globulin 4.2 g/dL (1.3-3.2); Glucose 271 mg/dl (74-100); Total Protein,Serum 7.6 g/dl (6.3-8.2)
[2019-09-06 07:04] LABS: C-Reactive Protein 153.3 mg/L (0-4)
[2019-09-06 07:58] LABS: Lymphocytes % 14 % (10-50); Monocytes % 3 % (2-9); Neutrophils % 83 % (42-76); Platelet Estimate Slight Increase; RBC Morphology Normal; Total Cells Counted 100
[2019-09-06 08:00] VITALS: BP 119/64; PULSE 91; RESP 18; TEMP 36.7; O2SAT 97
--- NOTE | 2019-09-06 08:00 | XR_ITS ---
PROCEDURE: XR CHEST PORTABLE PICC PLAC CLINICAL HISTORY: Confirm PICC line placement COMPARISON: CXR2V XR chest 2V from 12/12/2017 Chest from 10/02/2018 XR CHEST PORTABLE from 09/04/2019 FINDINGS: The cardiomediastinal silhouette and pulmonary vascularity are within normal limits. The lungs are clear without infiltrates, suspicious nodules, or pleural effusions. The left-sided PICC line is seen ascending the left axillary vein and the tip is at the SVC right atrial junction. There is no pneumothorax. No acute bony abnormalities. IMPRESSION: Satisfactory placement of PICC line as noted Dictated by: Dr. Conner Christianson MD 09/06/2019 12:[address] Conner Christianson MD in [facility] 09/06/2019 12:32
--- NOTE | 2019-09-06 08:29 | HMH.ACPN2 ---
Internal Medicine - PN: Subj *Date: 09/06/19 *Time: 08:29 Interval history: Patient states she wants to go home today. She had surgery yesterday by Dr. Aly and Dr. Aly would like to have home health consulted, a PICC line placed, and a wound VAC placed on the wound. She will see the patient today in follow-up for dressing change. The patient states her leg pain has resolved and she was able to eat and sleep last night. Exam Vital signs and Labs for Last 24 Hours: Temp Pulse Resp BP Pulse Ox 98.1 F 91 H 18 119/64 97 09/06/19 08:00 09/06/19 08:00 09/06/19 08:00 09/06/19 08:00 09/06/19 08:00 Laboratory Results - last 24 hr 09/05/19 11:08: POC Glucose 187 H 09/05/19 12:38: Urine Color Yellow, Urine Appearance Clear, Urine pH 8.0, Ur Specific [place] 1.015, Urine Protein Trace, Urine Glucose (UA) Negative, Urine Ketones 1+, Urine Blood 1+, Urine Nitrate Negative, Urine Bilirubin Negative, Urine Urobilinogen >=8.0, Ur Leukocyte Esterase Trace, Urine RBC 5-10, Urine WBC 10-20, Ur Squamous Epith Cells Occasional, Urine Bacteria 1+, Urine Mucus Trace 09/05/19 12:38: Urine HCG, Qual Negative 09/05/19 14:27: POC Glucose 198 H 09/05/19 17:15: Random Glucose 502 H* 09/05/19 20:45: POC Glucose 433 H* 09/06/19 06:05: POC Glucose 277 H 09/06/19 06:15: WBC 20.3 H*, RBC 3.65 L, Hgb 11.1 L, Hct 32.8 L, MCV 89.8, MCH 30.5, MCHC 33.9, RDW 12.7, Plt Count 471 H, MPV 7.2 L, Neut % (Auto) 84.1 H, Lymph % (Auto) 11.2, [place] % (Auto) 4.1, Eos % (Auto) 0.3, Baso % (Auto) 0.3, Neut # (Auto) 17.1 H, Lymph # (Auto) 2.3, [place] # (Auto) 0.8, Eos # (Auto) 0.1, Baso # (Auto) 0.1, Total Counted 100, Neutrophils % (Manual) 83 H, Lymphocytes % (Manual) 14, Monocytes % (Manual) 3, Platelet Estimate Slight increase, RBC Morphology Normal 09/06/19 06:15: Sodium 136, Potassium 4.2, Chloride 100, Carbon Dioxide 29, Anion Gap 11.2, BUN 10, Creatinine 0.80, Estimated Creat Clear 80, Estimated GFR 77, Est GFR ( Amer) 93, Glucose 271 H, Calcium 8.6, Total Bilirubin 0.5, AST 25, ALT 23, Alkaline Phosphatase 249 H, C-Reactive Protein 153.3 H, Total Protein 7.6, Albumin 3.4 L, Globulin 4.2 H, Albumin/Globulin Ratio 0.8 L I & O for Last 24 hours: Intake & Output 09/03/19 09/04/19 09/05/19 09/06/19 11:59 11:59 11:59 11:59 Intake Total 639 / 639 1920 / 1920 Output Total 500 / 500 2600 / 2600 Balance 139 / 139 -680 / -680 Weight 138 lb 0.009 oz 128 lb Microbiology Reports for the Last 24 Hours: Microbiology 09/04/19 13:25 Foot,Right - Drainage Gram Stain - Final 09/04/19 13:25 Foot,Right - Drainage Wound Culture - Preliminary Klebsiella oxytoca 09/05/19 Unknown Foot,Right - Abscess Gram Stain - Final - Constitutional no acute distress - *Routine Respiratory Exam Present: CTA bilaterally - *Routine Cardiovascular Exam Present: RRR - *Routine Abdominal Exam Present: soft, normoactive bowel sounds. Absent: tenderness - *Routine Extremities Exam Absent: cyanosis, clubbing, edema - *Routine Skin Exam Present: warm. Absent: rash Comments: right lower leg with no erythema, the right foot has bandage in place - *Routine Neurological Exam Present: alert, oriented X3 Assessment and Plan (1) Cellulitis and abscess of foot Current visit: Yes Status: Acute Category: Medical Code(s): L03.119 - Cellulitis of unspecified part of limb; L02.619 - Cutaneous abscess of unspecified foot (2) Leukocytosis Current visit: Yes Status: Acute Category: Medical Code(s): D72.829 - Elevated white blood cell count, unspecified (3) CAD (coronary artery disease) Current visit: No Status: Chronic Qualifiers: Coronary Disease-Associated Artery/Lesion type: [place] artery [place] vs. transplanted heart: [place] heart Associated angina: without angina Qualified Code(s): I25.10 - Atherosclerotic heart disease of [place] coronary artery without angina pectoris Category: Medic
[2019-09-06 08:37] LABS: POC Glucose,Bedside 512 (70-110)
--- NOTE | 2019-09-06 08:47 | HMH.PNCARD ---
Subjective Date: 09/06/19 Time: 08:47 Principal diagnosis: cellulitis, right foot ulcer Interval history: 49 yo WF in bed in [facility]. No chest pain or SOA. Wants to go home. Exam Vital signs and Labs for Last 24 Hours: Temp Pulse Resp BP Pulse Ox 98.1 F 91 H 18 119/64 97 09/06/19 08:00 09/06/19 08:00 09/06/19 08:00 09/06/19 08:00 09/06/19 08:00 Laboratory Results - last 24 hr 09/05/19 11:08: POC Glucose 187 H 09/05/19 12:38: Urine Color Yellow, Urine Appearance Clear, Urine pH 8.0, Ur Specific [place] 1.015, Urine Protein Trace, Urine Glucose (UA) Negative, Urine Ketones 1+, Urine Blood 1+, Urine Nitrate Negative, Urine Bilirubin Negative, Urine Urobilinogen >=8.0, Ur Leukocyte Esterase Trace, Urine RBC 5-10, Urine WBC 10-20, Ur Squamous Epith Cells Occasional, Urine Bacteria 1+, Urine Mucus Trace 09/05/19 12:38: Urine HCG, Qual Negative 09/05/19 14:27: POC Glucose 198 H 09/05/19 16:51: POC Glucose 512 H* 09/05/19 17:15: Random Glucose 502 H* 09/05/19 20:45: POC Glucose 433 H* 09/06/19 06:05: POC Glucose 277 H 09/06/19 06:15: WBC 20.3 H*, RBC 3.65 L, Hgb 11.1 L, Hct 32.8 L, MCV 89.8, MCH 30.5, MCHC 33.9, RDW 12.7, Plt Count 471 H, MPV 7.2 L, Neut % (Auto) 84.1 H, Lymph % (Auto) 11.2, [place] % (Auto) 4.1, Eos % (Auto) 0.3, Baso % (Auto) 0.3, Neut # (Auto) 17.1 H, Lymph # (Auto) 2.3, [place] # (Auto) 0.8, Eos # (Auto) 0.1, Baso # (Auto) 0.1, Total Counted 100, Neutrophils % (Manual) 83 H, Lymphocytes % (Manual) 14, Monocytes % (Manual) 3, Platelet Estimate Slight increase, RBC Morphology Normal 09/06/19 06:15: Sodium 136, Potassium 4.2, Chloride 100, Carbon Dioxide 29, Anion Gap 11.2, BUN 10, Creatinine 0.80, Estimated Creat Clear 80, Estimated GFR 77, Est GFR ( Amer) 93, Glucose 271 H, Calcium 8.6, Total Bilirubin 0.5, AST 25, ALT 23, Alkaline Phosphatase 249 H, C-Reactive Protein 153.3 H, Total Protein 7.6, Albumin 3.4 L, Globulin 4.2 H, Albumin/Globulin Ratio 0.8 L I & O for Last 24 hours: Intake & Output 09/03/19 09/04/19 09/05/19 09/06/19 11:59 11:59 11:59 11:59 Intake Total 639 / 639 1920 / 1920 Output Total 500 / 500 2600 / 2600 Balance 139 / 139 -680 / -680 Weight 138 lb 0.009 oz 128 lb Microbiology Reports for the Last 24 Hours: Microbiology 09/04/19 13:25 Foot,Right - Drainage Gram Stain - Final 09/04/19 13:25 Foot,Right - Drainage Wound Culture - Preliminary Klebsiella oxytoca 09/05/19 Unknown Foot,Right - Abscess Gram Stain - Final - *Routine HEENT Exam Head: Present: normocephalic Eye: Present: EOMI, PERRL ENT: Present: mucous membranes moist - *Routine Respiratory Exam Present: CTA bilaterally. Absent: accessory muscle use, rales, rhonchi, wheezes - *Routine Cardiovascular Exam Present: RRR. Absent: murmur, gallop, rubs - *Routine Extremities Exam Absent: edema, calf tenderness - *Routine Neurological Exam Present: alert, oriented X3, moving all extremities Progress Note: A&P (1) Cellulitis and abscess of foot Status: Acute Current Visit: Yes (2) Leukocytosis Status: Acute Current Visit: Yes (3) CAD (coronary artery disease) Status: Chronic Current Visit: No (4) HHD (hypertensive heart disease) Status: Chronic Current Visit: No (5) HLD (hyperlipidemia) Status: Chronic Current Visit: No (6) IDDM (insulin dependent diabetes mellitus) Status: Chronic Current Visit: No (7) Ischemic cardiomyopathy Status: Chronic Current Visit: No (8) Pulmonary hypertension, moderate to severe Status: Chronic Current Visit: No (9) History of CVA (cerebrovascular accident) Status: Chronic Current Visit: Yes (10) Diabetic infection of right foot Status: Acute Current Visit: Yes (11) Right foot ulcer Status: Acute Current Visit: Yes (12) Foot abscess, right Status: Acute Current Visit: Yes (13) Abnormal ankle brachial index (ALAN) Status: Acute Current Visit: Yes
--- NOTE | 2019-09-06 08:49 | PC.NURSE ---
rounded with Dr. Maldonado and Musa Rojas PA. Discontinued leary cath per Dr. Maldonado. Pt to have PICC line placed today, a wound vac placed on right foot and will be set up with Home Health. Pt has a walker and wheelchair at home already.
[2019-09-06 08:59] LABS: Erythrocyte Sedimentation Rate 124 mm/hr (0-20)
--- NOTE | 2019-09-06 09:41 | PC.NURSE ---
Dr. Aly @ BS to change right foot dressing. Wound bed is beefy red with good blood supply. Pt did not feel pain during dressing change. Dressing consisted of the following: betadine soaked 4x4, xeroform, dry 4x4, kerlix and SHARON bandage. Dr. Aly ordered a fracture boot for pt to wear when OOB/weight bearing. Wound vac to be placed by Home Health once pt arrives home. Dressing changes and wound care education provided to pt. She verbalized understanding.
--- NOTE | 2019-09-06 09:47 | PC.NURSE ---
Melany Andrade RN @ [facility] to insert PICC line
[2019-09-06 09:53] VITALS: BP 126/69; PULSE 88; TEMP 36.9
--- NOTE | 2019-09-06 09:53 | P.PN_ITS ---
[facility] Anesthesia Record Part II Discharge Time: 14:25 Destination: Medical Surgical Department PACU nurse assessment reviewed?: Yes Patient Condition:: Good Anesthesia Complications:: None Swallowing reflex intact?: Yes Cyanosis?: No Blood Pressure: 126/69 Pulse Rate: 88 Temperature: 98.5 F Mental Status: Alert & Oriented Pain level:: 0 Nausea and/or vomitting:: None Intake, IV Amount: 0
--- NOTE | 2019-09-06 10:00 | SW/DCPLANNER ---
Addendum entered by [facility] 09/06/19 14:45: Kathi with [employer] has stated that medication will be delivered between 7-8 PM. Addendum entered by [facility] 09/06/19 14:09: Minor with [facility] has stated that this patient does not have insurance to cover supplies (tubing, PICC care, ect..) but [facility] will assist this patient and make an exception. Minor has stated that services will begin tomorrow morning for this patient. Patient will discharge today. Addendum entered by [facility] 09/06/19 13:36: I have spoke with Praveen at [facility] and services will begin tomorrow for wound vac and IV antibiotics. I have also spoke with Kathi with [employer] and she has stated that medication will cost patient $6.00 (patient is fine with this) and will be delivered to patients home today. Patient will discharge home later today. Original Note: I have received an order for this patient regarding IV antibiotics, PICC line and wound vac. Patient will need 4-6 weeks of both Dapto and Invanz daily. Patient will have PICC line placed today. Patient has previously used [facility] for at home IV antibiotics and stated that family members are present 10/10 to administer when needed. Patient information has also been faxed to [facility] and [facility] for IV Dapto and Invanz. I will follow up with both once patient information is reviewed. Wound Vac will be delivered to patients house later today or tomorrow and Wednd will apply. Patient will discharge home later today.
--- NOTE | 2019-09-06 10:34 | HMH.ORTHPN ---
Subjective Date: 09/06/19 Time: 09:45 Principal diagnosis: cellulitis, right foot ulcer Interval history: Patient is resting comfortably at the bedside. She denies pain to the right foot. She denies nausea/vomiting, fever/chills, shortness of breath and chest pain. PN: Obj Ex Vital signs: Temp Pulse Resp BP Pulse Ox 98.5 F 88 18 126/69 97 09/06/19 09:53 09/06/19 09:53 09/06/19 08:00 09/06/19 09:53 09/06/19 08:00 - Constitutional no acute distress, thin - Routine HEENT Exam Head: Present: normocephalic - Routine Neck Exam Present: supple - Routine Respiratory Exam Absent: respiratory distress - Routine Cardiovascular Exam Present: RRR - Routine Abdominal Exam Present: soft - Routine Extremities Exam Present: pulses intact, pallor, amputation. Absent: tenderness - Detailed Lower Extremity Exam Top foot image: 1 - Right hallux amp. Now right 5th partial ray amputation. Wound base granular with no purulence, malodor or drainage. Maceration to wound edges. Decreased edema and erythema. Skin warm with palpable pulses noted. - Routine Skin Exam Present: dry, pallor, wounds. Absent: gangrene - Urinary Catheter Management Hernandez Cath placed during this visit: no Progress Note: A&P (1) Cellulitis and abscess of foot Status: Acute Current Visit: Yes (2) Leukocytosis Status: Acute Current Visit: Yes (3) CAD (coronary artery disease) Status: Chronic Current Visit: No (4) HHD (hypertensive heart disease) Status: Chronic Current Visit: No (5) HLD (hyperlipidemia) Status: Chronic Current Visit: No (6) IDDM (insulin dependent diabetes mellitus) Status: Chronic Current Visit: No (7) Ischemic cardiomyopathy Status: Chronic Current Visit: No (8) Pulmonary hypertension, moderate to severe Status: Chronic Current Visit: No (9) History of CVA (cerebrovascular accident) Status: Chronic Current Visit: Yes (10) Diabetic infection of right foot Status: Acute Current Visit: Yes (11) Right foot ulcer Status: Acute Current Visit: Yes (12) Foot abscess, right Status: Acute Current Visit: Yes (13) Abnormal ankle brachial index (ALAN) Status: Acute Current Visit: Yes (14) PAD (peripheral artery disease) Status: Chronic Current Visit: Yes (15) Osteomyelitis Status: Acute Current Visit: Yes Assessment and Plan for All Diagnoses:: sx: 09/05/19: s/p right foot incision and drainage, partial 5th ray amputation, irrigation and debridement, sub 5th metatarsal ulcer excision POD #1 The right foot dressing was intact with some Betadine strikethrough noted. Dressing removed. Wound flushed with saline. Sharp curette used to debride the wound bed. Some light bleeding noted. The wound was explored with a hemostat. No evidence of purulence, malodor, tracking or new gangrene noted. Post debridement with currette sharply excisionally, the wound base was 100% granular and probed thru skin, subq and deep fascia. Post debridement the wound measured: 9.5x4.2x2.9cm. Skin was cleansed. Xeroform betadine soaked 4x4's followed by dry sterile dressing applied to the foot. Discharge/Plan: 1. Patient is to maintain dressing clean dry and intact. She understands if the dressing gets wet it will need to be changed. Her daughters have changed her dressing before and feel comfortable to do Betadine dry sterile dressing change if the foot gets wet. 2. Discussed IV antibiotics with Luis Daniel: Dapto 400mg and Ivanz 1g daily via IV, PICC 3. Non weight bearing to the right lower extremity with short fracture boot and with DME assistance. 4. Okay to d/c from Podiatry foot standpoint, f/u 09/10/19 @1500 5. [facility] can apply wound vac today or tomorrow [facility] Orders: -PICC, IV antibiotics x 6 weeks (start date 09/06/19) -IV Dapto 400mg qd, Invanz 1g -Will need weekly la
--- NOTE | 2019-09-06 11:52 | PC.NURSE ---
ATTEMPTED PICC X3 TIMES; BLOOD RETURN WAS NOTED ; PICC WOULD NOT ADVANCE PAST SHOULDER, ALL THREE ATTEMPTS WERE THE SAME;
--- NOTE | 2019-09-06 12:06 | PC.NURSE ---
Melany Andrade RN still @ BS inserting PICC line. IV abx have not been given yet.
[2019-09-06 12:39] LABS: POC Glucose,Bedside 198 (70-110)
--- NOTE | 2019-09-06 12:52 | PC.NURSE ---
4 ATTEMPT BY LAKIA BERNSTEIN AND WAS SUCCESSFUL
--- NOTE | 2019-09-06 13:33 | HMH.PTEV ---
Physical Therapy Evaluation Rehab PT IP Evaluation Start: 09/05/19 14:07 Freq: ONCE Status: Active Protocol: Document 09/06/19 13:30 PHORRUBENS (Rec: 09/06/19 13:32 PHORNE [id number]) Subjective/History History History 49 yowf adm to [facility] with R foot infection, now S/P R 5th ray amputation. She lives with family and has walker and w/c at home already. Subjective Subjective Pt with no c/o this pm. Rehab PT IP Eval Objective Appearance Patient Behavior Appropriate Patient Orientation Person,Place,Time Difficulty following instructions none Speech Pattern Clear Ambulation Patient Able to Ambulate Yes Ambulation Observation IP General Gait Pattern Observation Decrease Weight Bear (R) Ambulation Distance (feet) 3 Ambulation Assistive Device Standard Walker Ambulation Ability Contact Guard/Hand Hold Balance Ability to Arise Able, uses arms to help Sitting Balance Steady, safe Standing Balance Steady, wide stance Dynamic Sitting Balance Ability Good Dynamic Standing Balance Ability Good Transfers Bed Transfer Ability Independent Chair Transfer Ability Supervision/Stand by Sit to Stand Bed Transfer Ability Supervision/Stand by Sit to Stand Chair Transfer Ability Supervision/Stand by ROM All Extremities PT ROM Status WFL MMT All Extremities PT MMT WFL Rehab PT IP prob,goals,plan Problems Date of Evaluation: 09/06/19 Discharge Plan PT Discharge Plan Pt is appropriate to return home once medically stable, no further inpatient therapy needs at this time. G -code Required No Eval Complexity Eval Charge Codes 05222 - Moderate Complexity PHYSICIAN CERTIFICATION: I certify the specified therapy services for Cristina Marinelli are required, authorized, and reviewed every 30 days.
--- NOTE | 2019-09-06 13:53 | PC.NURSE ---
Educated pt on the following: Home Health to visit tomorrow to apply wound vac to right foot, IV abx will be delivered tomorrow and pt will pay $6, diabetic diet, f/u apt with Dr. Aly on 09/09 @ 1500, and to call Dr. Aly's office with any questions/concerns regarding right foot dressing.
--- NOTE | 2019-09-06 15:03 | HMH.PHACLD ---
Cristina Marinelli has received discharge medication counseling on the following medications: PATIENT WITH TWO PERIPHERAL STENTS. PATIENT CURRENTLY TAKING ASPIRIN 81 MG DAILY, ATORVASTATIN 10 MG DAILY, CLOPIDOGREL 75 MG DAILY, AND LISINOPRIL 2.5 MG DAILY. MD CHANGING METOPROLOL SUCCINATE 100 MG DAILY TO CARVEDILOL 6.25 MG BID AND ALSO STOPPING AMLODIPINE AT TIME OF DISCHARGE.
--- NOTE | 2019-09-06 15:45 | HMH.DCSUM ---
General - General Admission date:: 09/04/19 Discharge date: 09/06/19 HPI HPI: Ms. Marinelli is a 49-year-old female with a history of type 2 diabetes, hypertension, history of strokes, diabetic neuropathy, peripheral vascular disease, and history of osteomyelitis with amputation of the right great toe. She is normally followed by Dr. Cano at [facility] who did her previous foot surgery. She states she has not seen him since March. She has had ulcers on the bottom of her feet off and on for quite some time. She states over the past week she has developed an ulcer on the lateral aspect of her foot just below her fifth digit. Her daughter has been wrapping it at home. She noticed she began having pain into her kim and some redness on the kim in the last few days. She has not noticed any fever but states she generally feels bad. She presented to the office today and the foot was unwrapped revealing a significant diabetic ulcer with possible abscess formation and cellulitis up to the mid kim. Her white blood cell count was 19.9. A wound culture was taken of the foot and Dr. Aly was contacted as the patient did not want to go to [place]. Dr. Aly wanted the patient admitted and will consult on her today. She will also need a cardiology consult due to her peripheral vascular disease and lack of pulses in the right foot. Hospital Course Hospital Course: The patient was admitted and Dr. Aly was consulted as well as cardiology. She did have an x-ray of the foot which showed nothing acute. She was seen by Dr. Aly who performed a bedside I&D with a culture and felt that the patient would need an amputation. The pulses in her foot were diminished and her ALAN was abnormal. Cardiology saw her and ordered an iliofemoral runoff. This showed an occluded right superficial femoral artery and she did receive 2 stents with improvement in blood flow. Her white blood cell count was elevated and a CT was ordered of the foot. She was kept n.p.o. for possible surgery. The foot CT showed possible osteomyelitis at the head of the fifth metatarsal. Cardiology felt she was an acceptable risk for surgery. Some of the pain in her leg subsided after receiving the stents, but she continued with erythema of the lower leg and foot as well as drainage from the foot. Cardiology did change some of her medications. They left her on Coreg twice a day and increased her dose of lisinopril. They felt she would need to start on Lasix 20 mg daily and spironolactone 25 mg daily due to her reduced EF once surgery was complete. They also felt she should stay on aspirin and Plavix. The patient was taken to the OR on 09/05/[address] Aly performed a right foot incision and drainage, right partial fifth ray amputation, right foot irrigation and debridement, and a right sub-fifth metatarsal ulcer excision. The patient tolerated the procedure well. Dr. Aly wanted the patient to have a PICC line placed and to remain on IV antibiotics for approximately 6 weeks. She also wanted a wound VAC placed and felt home health would need to administer the IV antibiotics and care for the wound VAC. The patient is to remain nonweightbearing to her right foot and will follow-up in Dr. Aly's office. The patient had a PICC line placed as well as a wound VAC. Her pain improved and she was able to eat and sleep without difficulty. She was stable to be discharged home on daptomycin and Invanz for 6 weeks. It was felt she would need weekly labs and she will have wound VAC changes Monday and Monday. She will follow-up with Dr. Aly as well as Dr. Maldonado. Objective Vital signs: Temp Pulse Resp BP Pulse Ox 98.5 F 88 18 126/69 97 09/06/19 09:53 09/06/19 09:53 09/06/19 08:00 09/06/19 09:53 09/06/19 08:00 Narrative: - Constitutional no acute distress - *Routine HEENT Exam Head: Present: normocephalic Eye: Present: EOMI, PERRL
[2019-12-31 09:30] LABS: CATHL Activated Clotting Time 178 SEC (74-125)
== END 2019-09-06 15:24 | disposition home health service (06) | DRG 240 ==
PROVIDERS: Internal Medicine; Nurse Practitioner Family; Physician Assistant; Podiatrist; Admitting Provider Family Medicine; PCP Family Medicine; Visit Provider Family Medicine
PROC: 04HM3DZ Insertion of Intraluminal Device into Right Popliteal Artery, Percutaneous Approach (ICD-10-PCS; principal; 2019-09-04 14:40)
PROC: 0Y6M0ZF Detachment at Right Foot, Partial 5th Ray, Open Approach (ICD-10-PCS; CPT 28810; principal; 2019-09-05 11:30)
DX: E11.52 Type 2 diabetes mellitus with diabetic peripheral angiopathy with gangrene (principal); L03.115 Cellulitis of right lower limb; I70.92 Chronic total occlusion of artery of the extremities; I70.268 Atherosclerosis of native arteries of extremities with gangrene, other extremity; I70.261 Atherosclerosis of native arteries of extremities with gangrene, right leg; M86.171 Other acute osteomyelitis, right ankle and foot; I69.354 Hemiplegia and hemiparesis following cerebral infarction affecting left non-dominant side; I50.22 Chronic systolic (congestive) heart failure; M86.8X7 Other osteomyelitis, ankle and foot; I70.235 Atherosclerosis of native arteries of right leg with ulceration of other part of foot; I70.222 Atherosclerosis of native arteries of extremities with rest pain, left leg; L97.514 Non-pressure chronic ulcer of other part of right foot with necrosis of bone; B96.1 Klebsiella pneumoniae [K. pneumoniae] as the cause of diseases classified elsewhere; B95.62 Methicillin resistant Staphylococcus aureus infection as the cause of diseases classified elsewhere; Z72.0 Tobacco use; Z79.4 Long term (current) use of insulin; Z95.5 Presence of coronary angioplasty implant and graft; I25.10 Atherosclerotic heart disease of native coronary artery without angina pectoris; I27.20 Pulmonary hypertension, unspecified; I25.5 Ischemic cardiomyopathy; I11.0 Hypertensive heart disease with heart failure; E11.42 Type 2 diabetes mellitus with diabetic polyneuropathy; E11.621 Type 2 diabetes mellitus with foot ulcer; Z79.899 Other long term (current) drug therapy
CPT/HCPCS: 28810; 36415; 36569; 37226; 71045; 73630; 73700; 80048; 80053; 80061; 80076; 81001; 81025; 82947; 82962; 83036; 85007; 85025; 85347; 85651; 86140; 87040; 87070; 87075; 87077; 87086; 87186; 87205; 87581; 87633; 87798; 88305; 88311; 93005; 93306; 94761; 97162; 99152; 99153; C1725; C1751; C1766; C1769; C1876; C1894; J0878; J1335; J1644; J2405; J2543; J3370; Q9966

== ENCOUNTER → 2019-09-17 11:30 | Outpatient (CLI) | payer MEDICARE, MEDICAID, SELFPAY ==
[2019-09-17 11:58] LABS: Hematocrit 38.1 % (37.0-47.0); Hemoglobin 13.5 g/dL (12.2-16.2)
[2019-09-17 12:05] LABS: Blood Urea Nitrogen 10 mg/dl (7-17); Estimated Glomerular Filt Rate 67 ml/min (>60); GFR (African American) 81 ML/MIN (>60)
== END ==
PROVIDERS: Visit Provider Family Medicine
DX: Z01.818 Encounter for other preprocedural examination (principal)
CPT/HCPCS: 36415; 82565; 84520; 85014; 85018

== ENCOUNTER 2019-09-27 08:46 | Day surgery (SDC) | payer MEDICARE, MEDICAID, SELFPAY ==
[2019-09-27] VITALS (19 sets, daily range): BP systolic 108–135; BP diastolic 58–88; PULSE 71–90; RESP 12–18; TEMP 36.6–37; O2SAT 92–100; BMI 21.2
[2019-09-27 09:24] LABS: Basophils # 0.1 K/mm3 (0-0.2); Basophils % 0.8 % (0.1-2.0); Eosinophils # 0.8 K/mm3 (0.0-0.4); Eosinophils % 6.1 % (0.1-12.0); Hematocrit 38.9 % (37.0-47.0); Hemoglobin 12.9 g/dL (12.2-16.2); Lymphocytes # 3.6 K/mm3 (0.7-4.5); Lymphocytes % 28.2 % (10-50); Mean Corpuscular HGB Conc 33.1 g/dL (31.8-35.4); Mean Corpuscular Volume 90.6 fl (81-99); Mean Platelet Volume 7.3 fl (7.4-10.4); Monocytes # 0.6 K/mm3 (0.1-1.0); Monocytes % 4.3 % (1.7-9.3); Neutrophils # 7.9 K/mm3 (1.8-7.8); Neutrophils % 60.7 % (37.0-80.0); Platelet Count 357 K/mm3 (142-424); White Blood Count 12.9 K/mm3 (4.8-10.8)
[2019-09-27 09:30] LABS: Chloride 104 mmol/L (98-107)
[2019-09-27 09:31] LABS: Potassium 4.1 mmoL/L (3.5-5.1); Sodium 135 mmol/L (136-145)
[2019-09-27 09:33] LABS: Blood Urea Nitrogen 6 mg/dl (7-17); Creatinine Clearance Estimated 91 mL/min (50-200); Estimated Glomerular Filt Rate 90 ml/min (>60); GFR (African American) 109 ML/MIN (>60)
[2019-09-27 09:34] LABS: Anion Gap 7.1 mEq/L (5-15); Carbon Dioxide 28 mmol/L (22.0-30.0); Glucose 210 mg/dl (74-100)
--- NOTE | 2019-09-27 10:00 | IR_ITS ---
APPROVED REPORT PROCEDURES Left heart catheterization Left ventriculogram Selective coronary angiogram Drug-eluting stent deployment to the ostial left main artery Drug-eluting stent deployment to the distal dominant right coronary INDICATION Coronary artery disease, Ischemic systolic congestive heart failure, Interval reduction in ejection fraction from 50% to 20%, Informed consent was obtained prior to the procedure. COMPLICATIONS None Estimated Blood Loss: less than 10 ml TECHNIQUE One percent lidocaine used to anesthetize the right anterior aspect of the wrist. The right radial artery was accessed via the Seldinger technique. A 6 Kiswahili sheath was placed in the right radial artery. 2.5 mg of verapamil, 800 mcg of nitroglycerin, 1mg Lidocaine and 5000 U Heparin were given through the arterial sheath. The trap catheter was also used to perform left heart catheterization, left ventriculogram and selective coronary angiogram. At the end of the diagnostic angiogram consultation was made with Dr. Noyola to discuss potential revascularization modalities. Patient is a small female who continues to smoke and suffers from poly-vascular disease. Given the wide patency of the previously placed stents and patient's high risk for surgical revascularization it was felt a percutaneous approach would be most desirable. Based on reviewing the angiogram patient's chart and discussing with Dr. Noyola, it was decided to proceed percutaneously. Therapeutic heparin was administered and and I Mala left guide catheter was placed into the right coronary artery where a Choice PT extra-support wire was placed distally. A 2.5 x 22 mm resolute dominique stent was deployed at 14 evita reducing the severe stenosis to 0%. RIDDHI-3 flow was present before and after the procedure. Following this the guide catheter was placed in the left coronary cusp and the Choice PT wire was placed into the circumflex artery. A 3 mm x 12 mm resolute dominique stent was deployed at 20 evita reducing the severe ostial stenosis to 0%. There was excellent apposition of the stent with excellent RIDDHI-3 flow down the vessel before and after the procedure. At this point the apparatus was removed the sheath was removed the patient was transferred to the postop holding area in stable condition ANGIOGRAPHIC RESULTS The left main artery Is an ostial concentric 80 to 90% stenosis The left anterior descending artery Is proximally normal and then has stents throughout the mid segment which are widely patent free of in-stent restenosis with excellent proximal distal transitioning. A first diagonal artery is widely patent while there appears to be an ostially occluded small second diagonal artery. The circumflex artery The ramus intermedius originates off the left main artery and has a stent in the proximal segment which has 40% ostial in-stent restenosis in the proximal segment and 30% distal in-stent restenosis. RIDDHI-3 flow is still present. The circumflex artery itself is a small vessel giving rise to a solitary obtuse marginal artery The right coronary artery Is a dominant vessel and has stents in the proximal segment which have 30% concentric in-stent restenosis and distal 20 to 30% in-stent restenosis. The distal vessel has a concentric 80% stenosis. The posterior lateral branch is a large vessel has an ostial 40 to 50% stenosis and a mid vessel 40% stenosis. The posterior descending artery is a large vessel The WORLEY ventriculogram reveals Dilated ventricle ejection fraction 35% The left ventricular end-diastolic pressure 30 mmHg IMPRESSION Coronary disease as described above Successful stenting of the ostial left main artery severe disease reduced to 0% wi
[2019-09-27 15:03] LABS: CATHL Activated Clotting Time 251 SEC (74-125)
--- NOTE | 2019-09-27 16:12 | PC.NURSE ---
Pt is an overnight observation pt from [employer]. She had a left heart cath today through the RT wrist. Dressing is Telfa and Tegaderm. Noted to be c/d/i with no bleeding/oozing apparent. Pt has had no complaints of pain or SOA. PICC line is in place to the LT upper arm. Pt ambulates independently to and from the bathroom. Telemetry reveals NSR. VSS. Call light within reach. Will continue to monitor.
[2019-09-27 17:40] LABS: POC Glucose,Bedside 195 (70-110)
[2019-09-27 21:50] LABS: POC Glucose,Bedside 247 (70-110)
--- NOTE | 2019-09-27 23:20 | PC.NURSE ---
Upon assessment during shift change, pt's cath site was noted to be have swollen with scant drainage. Director Of Audiology, James Mccain RN was consulted for possible hematoma. James Mccain RN assessed pt and new DSG was applied along with temporary pressure. Upon reassessment, (R) cath site has improved with less swelling noted. DSG C/D/I. Pt denies any discomfort. Pt has been educated multiple times to not use (R) arm. VSS. No other concerns at this time. Will continue to monitor.
[2019-09-28] VITALS: BP 109/68; PULSE 87; PULSE 90; RESP 16; TEMP 36.7; O2SAT 94
[2019-09-28 03:56] VITALS: BP 101/73; PULSE 85; RESP 17; TEMP 36.7; O2SAT 96
[2019-09-28 04:00] VITALS: PULSE 90
[2019-09-28 05:28] VITALS: BMI 21.9
[2019-09-28 06:11] LABS: POC Glucose,Bedside 154 (70-110)
[2019-09-28 06:13] LABS: Chloride 104 mmol/L (98-107); Potassium 4.2 mmoL/L (3.5-5.1); Sodium 136 mmol/L (136-145)
[2019-09-28 06:15] LABS: Basophils # 0.1 K/mm3 (0-0.2); Basophils % 0.5 % (0.1-2.0); Eosinophils # 0.7 K/mm3 (0.0-0.4); Eosinophils % 5.4 % (0.1-12.0); Hematocrit 36.9 % (37.0-47.0); Hemoglobin 12.7 g/dL (12.2-16.2); Lymphocytes # 3.6 K/mm3 (0.7-4.5); Lymphocytes % 26.4 % (10-50); Mean Corpuscular HGB Conc 34.5 g/dL (31.8-35.4); Mean Corpuscular Hemoglobin 31.3 pg (27.0-31.2); Mean Corpuscular Volume 90.9 fl (81-99); Mean Platelet Volume 6.9 fl (7.4-10.4); Monocytes # 0.8 K/mm3 (0.1-1.0); Neutrophils # 8.4 K/mm3 (1.8-7.8); Neutrophils % 61.7 % (37.0-80.0); Platelet Count 348 K/mm3 (142-424); Red Blood Count 4.06 M/mm3 (4.20-5.40); Red Cell Distribution Width 14.1 % (11.5-17.5); White Blood Count 13.7 K/mm3 (4.8-10.8)
[2019-09-28 06:16] LABS: Anion Gap 9.2 mEq/L (5-15); Blood Urea Nitrogen 10 mg/dl (7-17); Carbon Dioxide 27 mmol/L (22.0-30.0); Creatinine Clearance Estimated 82 mL/min (50-200); Estimated Glomerular Filt Rate 77 ml/min (>60); GFR (African American) 93 ML/MIN (>60)
[2019-09-28 06:17] LABS: Calcium 8.9 mg/dl (8.4-10.2); Glucose 158 mg/dl (74-100)
--- NOTE | 2019-09-28 06:34 | PC.NURSE ---
Upon reassessment of pt this AM. Picc line was patent but was not able to obtain blood return. Will pass on to AM nurse to tell
[2019-09-28 08:00] VITALS: BP 102/51; PULSE 89; PULSE 90; RESP 18; TEMP 36.7; O2SAT 93
--- NOTE | 2019-09-28 10:23 | HMH.PHACLD ---
Cristina Marinelli has received discharge medication counseling on the following medications: BRILINTA 90MG BID. CLINIC PHARMACY PROVIDED NEW PRESCRIPTION. PATIENT IS TO STOP PLAVIX AT THIS TIME AND CONTINUE ENTRESTO, ASPIRIN, LIPITOR, AND CARVEDILOL. PATIENT AND PATIENT'S DAUGHTER VERBALIZED UNDERSTANDING AND HAD NO QUESTIONS AT THIS TIME. -WARNER URGGIERO, PHARMD
== END 2019-09-28 09:54 | disposition home or self-care (01) ==
LOC: CATHLAB 08:48 → 2ND 12:37
PROVIDERS: PCP Family Medicine; Visit Provider Internal Medicine
DX: E78.2 Mixed hyperlipidemia (principal); I07.1 Rheumatic tricuspid insufficiency; I11.0 Hypertensive heart disease with heart failure; I25.118 Atherosclerotic heart disease of native coronary artery with other forms of angina pectoris; I25.5 Ischemic cardiomyopathy; I27.20 Pulmonary hypertension, unspecified; I34.0 Nonrheumatic mitral (valve) insufficiency; I50.22 Chronic systolic (congestive) heart failure; Z86.73 Personal history of transient ischemic attack (TIA), and cerebral infarction without residual deficits; I70.213 Atherosclerosis of native arteries of extremities with intermittent claudication, bilateral legs; Z95.820 Peripheral vascular angioplasty status with implants and grafts; Z95.5 Presence of coronary angioplasty implant and graft; T82.855A Stenosis of coronary artery stent, initial encounter; Z79.899 Other long term (current) drug therapy; Z72.0 Tobacco use
CPT/HCPCS: 36415; 80048; 82962; 85025; 85347; 92928; 93458; 99152; 99153; C1725; C1769; C1874; C1876; C9600; J0878; J1335; J1644; Q9967

== ENCOUNTER → 2019-10-08 10:04 | Outpatient (CLI) | payer MEDICARE, MEDICAID, SELFPAY ==
--- NOTE | 2019-10-08 10:10 | XR_ITS ---
PROCEDURE: XR FOOT WT BEARING RT 3V CLINICAL INDICATION: POST-OP Follow-up surgery COMPARISON: [id number] XR foot LT min 3V from 10/22/2017 XR FOOT RT MIN 3V from 09/04/2019 XR FOOT LT MIN 3V from 09/04/2019 XR FOOT RT MIN 3V from 09/05/2019 FINDINGS: No change status post amputation at the base of the 5th metatarsal and old amputation at the mid aspect of the 1st metatarsal. There is good alignment. No bony erosive changes are evident. IMPRESSION: No change status post amputation at the base of the 5th metatarsal and at the 1st metatarsal Dictated by: Sidney Napoles MD 10/08/2019 13:07 Electronically signed by Sidney Napoles MD in [place] 10/08/2019 13:07
== END ==
PROVIDERS: PCP Family Medicine; Visit Provider Podiatrist
DX: Z98.890 Other specified postprocedural states (principal)
CPT/HCPCS: 73630

== ENCOUNTER → 2019-10-22 11:22 | Outpatient (CLI) | payer MEDICARE, MEDICAID, SELFPAY ==
[2019-10-22 12:22] LABS: C-Reactive Protein 23.6 mg/L (0-4)
[2019-10-22 13:14] LABS: Erythrocyte Sedimentation Rate 131 mm/hr (0-20)
[2019-10-22 14:49] LABS: Coronavirus 19 IgG Antibody Negative (Negative); Coronavirus 19 IgM Antibody Negative (Negative)
== END ==
PROVIDERS: Visit Provider Podiatrist
DX: Z01.818 Encounter for other preprocedural examination (principal); L97.512 Non-pressure chronic ulcer of other part of right foot with fat layer exposed
CPT/HCPCS: 36415; 85651; 86140; 86328

== ENCOUNTER 2019-10-23 06:01 | Day surgery (SDC) | payer MEDICARE, MEDICAID, SELFPAY ==
[2019-10-21 11:12] VITALS: BMI 21.2
[2019-10-23] VITALS (13 sets, daily range): BP systolic 84–120; BP diastolic 60–73; PULSE 73–82; RESP 16–18; TEMP 36.3–43; O2SAT 94–100
[2019-10-23 06:32] LABS: POC Glucose,Bedside 294 (70-110)
--- NOTE | 2019-10-23 06:33 | ECG_ITS ---
APPROVED REPORT Exam: Resting ECG HR:84 bpm ECG Measurements Heart Rate 84 AXES AL 154 P 21 QRSd 124 QRS -51 QT 428 T 137 QTc 505 <Conclusion> Normal sinus rhythm Left anterior fascicular block Left ventricular hypertrophy with QRS widening and repolarization abnormality Incomplete RBBB Abnormal ECG Electronically signed by : Camron Mckoy, 10/23/2019 07:15:09
--- NOTE | 2019-10-23 07:19 | HMH.OPNOTE ---
Date of procedure: 10/23/19 Pre-op Diagnosis:: 1. Right foot diabetic ulcer 2. Right history of osteomyelitis 3. Diabetes mellitus type 2 4. PAD Post-op Diagnosis:: Same Procedure performed:: 1. Right foot wound debridement 2. Right foot bone biopsy 3. Right foot application of wound graft Surgeon:: Margaux Aly DPM Rn Angiography(s):: None CONTACT LENS EDGE BUFFER:: Nasim Walker Anesthesia: GETA, local (20cc 0.5% marcaine plain) Estimated blood loss (mL): 10 Clinical Note:: Right foot diabetic ulcer, status post I&D, partial fifth ray amputation on 09/05/19. We discussed conservative versus surgical treatment options. Conservative treatment options include local wound care, oral and IV antibiotics, change in shoe wear, taping/padding, and off-loading. Discussed that patient would benefit from a wider and deeper shoe wear to accommodate the deformity. We discussed surgical intervention debridement and covering the wound with a graft. Patient also understands that they could have wound healing complications including delayed healing and infection. We discussed that if the wound does not heal or gets reinfected, it is possible that they may need a more proximal amputation and could result in further loss of digits, loss of partial foot or loss of leg. We discussed the risks and benefits in great detail. Other surgical risks include: prolonged pain and swelling, further infection requiring oral or IV antibiotics, delay in healing of soft tissue or bone, nerve or blood vessel damage, CRPS/RSD, DVT, anesthesia complications, and even . All questions answered. Patient verbalized understanding. Consent obtained. Patient was going to start cardiac rehab this past week. However she is getting home health care services for the PICC and the wound VAC. Pick antibiotics will be completed 10/20/2019. Discussed graft next week once IV antibiotics are completed. Patient understands once the skin graft is applied she will no longer need home health care as the graft dressing will be changed in my office weekly and she will be on oral antibiotics. At that point she will be able to have cardiac rehab services. Discussed this with Dan[facility] cardiology who agrees with the plan of care. Plan to start cardiac rehab next week. Labs reviewed from 10/21/19: wbc 9.3, esr 8, crp 12.2 from [facility]. The labs drawn from [facility] 10/22/19 esr 131 and crp 23.6. Given the large discrepancy, given IV antibiotics today and repeat labs this am. 10/23/19: wbc 10.7, crp 22.5, esr 25 Operative findings:: Previous right partial fifth ray amputation with open wound. Wound was sharply excisionally debrided through the skin to subcu layer with a 15 blade, forceps and curette. Post debridement the wound was 100% granular. No purulence, malodor or drainage appreciated. No ascending cellulitis or signs of acute infection noted. Post debridement the wound measured 7.6 x 1.6 x 0.3 cm to the proximal 1/3 of the wound, minimal peroneal tendon fibers noted and measured 0.1 cm to the distal 2/3 of the wound. Operative note:: On this date and time patient was deemed an appropriate surgical candidate. With informed consent signed, the patient was taken to the operating theater room. The patient was positioned supine. General anesthesia was induced. No tourniquet used. Right ankle block given with 20 cc 0.5% marcaine plain. Right foot bone biospy: The right lower extremity was prepped and draped in normal sterile fashion. Pre debridement the wound had no new signs of infection. Utilizing a 15 blade a stab incision was made over the dorsal aspect of the fifth metatarsal base. Another stab incision was made over the lateral aspect of the fifth metatarsal base. Blunt dissection to the level of the bone. The bone felt hard and color was within normal limits. Utilizing a Jamshidi needle specimen was removed from the dorsal stab incision and sent for bone culture. Another specimen was sent from the lateral incision to patholog
[2019-10-23 07:29] LABS: Basophils # 0.1 K/mm3 (0-0.2); Basophils % 0.8 % (0.1-2.0); Eosinophils # 0.4 K/mm3 (0.0-0.4); Eosinophils % 4.2 % (0.1-12.0); Hematocrit 39.3 % (37.0-47.0); Hemoglobin 13.6 g/dL (12.2-16.2); Lymphocytes # 3.4 K/mm3 (0.7-4.5); Lymphocytes % 31.8 % (10-50); Mean Corpuscular HGB Conc 34.6 g/dL (31.8-35.4); Mean Corpuscular Hemoglobin 30.9 pg (27.0-31.2); Mean Corpuscular Volume 89.1 fl (81-99); Mean Platelet Volume 6.9 fl (7.4-10.4); Monocytes # 0.5 K/mm3 (0.1-1.0); Monocytes % 4.8 % (1.7-9.3); Neutrophils # 6.2 K/mm3 (1.8-7.8); Neutrophils % 58.4 % (37.0-80.0); Platelet Count 358 K/mm3 (142-424); Red Blood Count 4.41 M/mm3 (4.20-5.40); Red Cell Distribution Width 13.7 % (11.5-17.5); White Blood Count 10.7 K/mm3 (4.8-10.8)
[2019-10-23 07:32] LABS: Alanine Aminotransferase 16 U/L (12-78); Albumin Level 4.1 g/dl (3.5-5.0); Albumin/Globulin Ratio 1.1 (1.1-1.8); Alkaline Phosphatase 209 U/L (38-126); Anion Gap 13.6 mEq/L (5-15); Aspartate Amino Transferase 24 U/L (14-36); Bilirubin,Total 0.4 mg/dl (0.2-1.3); Blood Urea Nitrogen 16 mg/dl (7-17); Calcium 9.4 mg/dl (8.4-10.2); Carbon Dioxide 26 mmol/L (22.0-30.0); Chloride 101 mmol/L (98-107); Creatinine Clearance Estimated 80 mL/min (50-200); Estimated Glomerular Filt Rate 77 ml/min (>60); GFR (African American) 93 ML/MIN (>60); Globulin 3.6 g/dL (1.3-3.2); Glucose 294 mg/dl (74-100); Potassium 4.6 mmoL/L (3.5-5.1); Sodium 136 mmol/L (136-145); Total Protein,Serum 7.7 g/dl (6.3-8.2)
[2019-10-23 07:37] LABS: C-Reactive Protein 22.5 mg/L (0-4)
[2019-10-23 07:50] LABS: POC Glucose,Bedside 141 (70-110)
[2019-10-23 07:52] LABS: HCG Qualitative, Serum Negative (Negative)
--- NOTE | 2019-10-23 07:52 | SUR.PREOP ---
REPEAT FSBS CHECK WAS 141, R FEEBACK E COMMERCE MANAGER NOTIFIED , NO NEW ORDERS RECEIVED.
[2019-10-23 07:55] LABS: Erythrocyte Sedimentation Rate 25 mm/hr (0-20)
--- NOTE | 2019-10-23 08:57 | HMH.ANESCL ---
[facility] Anesthesia Checklist - Patient Identification Patient Identification: Arm Band - Structural Data Admitted From: Home Planned Operative Procedure/s: right foot I&D, bone bx, wound graft Consent for Planned Operative Procedure(s) Verified: Yes Verified Documents: Surgical Consent, History and Physical - NPO Status Verified Time NPO: 00:00 - Additional verifications Anesthesia Reactions: No Hx Blood Transfusions: No Blood Transfusion Reaction: No - Airway Assessment C-Spine Mobility Assessed: Yes (mp2) TMJ Mobility Assessed: Yes Dentition: Edentulous - Neurological Assessment Level of Consciousness: Awake, Alert - Anesthesia Plan Anesthesia Risk discussed: Yes Anesthesia Plan: Verified ASA Class: III Anesthesia Type: General [facility] History I have reviewed the patient's past medical history: Yes Medical History: Reports:: Cardiomyopathy, Coronary Artery Disease, Cerebrovascular Accident, Deep Vein Thrombosis, Diabetes Mellitus Type 2, Hyperlipidemia, Hypertension, Migraine, MRSA, Peripheral Vascular Disease Denies:: Cancer, Diabetes Mellitus Type 1, Internal Pacemaker, Seizures *Have you ever received a pneumonia vaccine?: No *Have you received a flu vaccine this season?: No Other Medical History: Denies: Blood Transfusion Reaction Anesthesia experience/problems:: nac Laterality Cases: Right: Other Other Surgeries: Yes: Cardiac Catheterization, Cholecystectomy, Coronary Stent, Tubal Ligation. 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.) Fractures: No - *Social History Last grade of school completed: High school graduate Smoking Status: Current every day smoker Tobacco Type: cigarettes # Packs/Day (cigarettes): 2 #Yrs smoked (if former smoker): 30 Alcohol Intake: never Substance Use Type: denies use *Occupational Status:: disabled Housing: house Household Members: family *Travel in the last 8 weeks: None Family Hx:: Diabetes, Heart Attack
--- NOTE | 2019-10-23 08:58 | HMH.ANESI ---
[facility] Anesthesia Record Part I Intake, IV Amount: 1,300 Estimated blood loss (mL): 5 Urine output (mL): 0 Blood Pressure: 99/67 SaO2: 100 Pulse Rate: 74 Respiratory Rate: 16 Temperature: 98.3 F Patient is:: Drowsy, Stable Stable to PACU at:: 08:50
--- NOTE | 2019-10-23 09:00 | XR_ITS ---
PROCEDURE: XR FOOT RT MIN 3V CLINICAL INDICATION: Post op Follow-up amputation COMPARISON: CR XR FOOT RT MIN 3V from 09/04/2019 CR XR FOOT LT MIN 3V from 09/04/2019 CR XR FOOT RT MIN 3V from 09/05/2019 CR XR FOOT WT BEARING RT 3V from 10/08/2019 FINDINGS: Status post amputation at the base of the 5th metatarsal. Multiple clips are present at this area. No acute bony destructive process is apparent. There is a cleft like lucency at the base of the 4th metatarsal laterally unchanged. There is a old amputation noted with an old fracture at the midshaft of the 1st metatarsal. IMPRESSION: Postsurgical changes as described Dictated Sidney Dozier MD 10/23/2019 14:04 Sidney Napoles MD in [place] 10/23/2019 14:04
[2019-10-23 09:07] LABS: POC Glucose,Bedside 81 (70-110)
--- NOTE | 2019-10-23 09:55 | HMH.ANESII ---
[facility] Anesthesia Record Part II Discharge Time: 09:20 Destination: [facility] PACU nurse assessment reviewed?: Yes Patient Condition:: Good Anesthesia Complications:: None Swallowing reflex intact?: Yes Cyanosis?: No Blood Pressure: 100/66 Pulse Rate: 79 Temperature: 97.4 F Mental Status: Alert & Oriented Pain level:: 0 Nausea and/or vomitting:: None Intake, IV Amount: 1,000
== END 2019-10-23 10:26 | disposition home or self-care (01) ==
LOC: OR 06:03
PROVIDERS: PCP Family Medicine; Visit Provider Podiatrist
DX: E11.621 Type 2 diabetes mellitus with foot ulcer (principal); L97.512 Non-pressure chronic ulcer of other part of right foot with fat layer exposed; E11.65 Type 2 diabetes mellitus with hyperglycemia; M86.671 Other chronic osteomyelitis, right ankle and foot
CPT/HCPCS: 11042; 15275; 20240; C5275; 73630; 80053; 82962; 84703; 85025; 85651; 86140; 87070; 87205; 88307; 88311; 93005; 96374; J0878; J1335; J2405; Q4100; Q4110

== ENCOUNTER 2019-10-29 09:04 | Outpatient (CLI) | payer MEDICARE, MEDICAID, SELFPAY | END 2019-10-29 09:20 | disposition home or self-care (01) | LOC: INF 09:04 | PROVIDERS: PCP Family Medicine; Visit Provider Podiatrist | DX: L03.115 Cellulitis of right lower limb (principal); M86.9 Osteomyelitis, unspecified; Z48.00 Encounter for change or removal of nonsurgical wound dressing | CPT/HCPCS: G0463 ==

== ENCOUNTER → 2019-11-19 12:46 | Outpatient (CLI) | payer MEDICARE, MEDICAID, SELFPAY ==
[2019-11-19 13:34] LABS: Basophils # 0.1 K/mm3 (0-0.2); Basophils % 0.5 % (0.1-2.0); Eosinophils # 0.2 K/mm3 (0.0-0.4); Eosinophils % 1.5 % (0.1-12.0); Hematocrit 42.2 % (37.0-47.0); Hemoglobin 15.1 g/dL (12.2-16.2); Lymphocytes # 3.5 K/mm3 (0.7-4.5); Lymphocytes % 25.6 % (10-50); Mean Corpuscular HGB Conc 35.8 g/dL (31.8-35.4); Mean Corpuscular Hemoglobin 31.4 pg (27.0-31.2); Mean Corpuscular Volume 87.7 fl (81-99); Mean Platelet Volume 7.1 fl (7.4-10.4); Monocytes # 0.5 K/mm3 (0.1-1.0); Monocytes % 3.6 % (1.7-9.3); Neutrophils # 9.4 K/mm3 (1.8-7.8); Neutrophils % 68.8 % (37.0-80.0); Platelet Count 383 K/mm3 (142-424); Red Blood Count 4.82 M/mm3 (4.20-5.40); Red Cell Distribution Width 13.8 % (11.5-17.5); White Blood Count 13.6 K/mm3 (4.8-10.8)
[2019-11-19 14:09] LABS: Erythrocyte Sedimentation Rate 25 mm/hr (0-20)
[2019-11-19 14:41] LABS: Hemoglobin A1C 9.4 % (4.0-6.0)
[2019-11-19 14:52] LABS: Alanine Aminotransferase 11 U/L (12-78); Albumin/Globulin Ratio 1.2 (1.1-1.8); Alkaline Phosphatase 208 U/L (38-126); Anion Gap 13.1 mEq/L (5-15); Aspartate Amino Transferase 19 U/L (14-36); Bilirubin,Total 0.6 mg/dl (0.2-1.3); Blood Urea Nitrogen 9 mg/dl (7-17); Calcium 9.7 mg/dl (8.4-10.2); Carbon Dioxide 28 mmol/L (22.0-30.0); Chloride 98 mmol/L (98-107); Estimated Glomerular Filt Rate 77 ml/min (>60); GFR (African American) 93 ML/MIN (>60); Globulin 3.3 g/dL (1.3-3.2); Glucose 235 mg/dl (74-100); Potassium 5.1 mmoL/L (3.5-5.1); Sodium 134 mmol/L (136-145); Total Protein,Serum 7.3 g/dl (6.3-8.2)
[2019-11-19 14:58] LABS: C-Reactive Protein 18.2 mg/L (0-4)
== END ==
PROVIDERS: Visit Provider Podiatrist
DX: E10.65 Type 1 diabetes mellitus with hyperglycemia (principal); L08.9 Local infection of the skin and subcutaneous tissue, unspecified; Z98.890 Other specified postprocedural states; M25.579 Pain in unspecified ankle and joints of unspecified foot
CPT/HCPCS: 36415; 80053; 83036; 85025; 85651; 86140

== ENCOUNTER → 2020-01-31 09:56 | Outpatient (CLI) | payer MEDICARE, MEDICAID, SELFPAY ==
--- NOTE | 2020-01-31 09:58 | CA_ITS ---
APPROVED REPORT EXAM: Comprehensive 2D, Doppler, and color-flow Echocardiogram Bench Boring Machine Operator: Juliet Johnson RVT Ht: 5 ft 5 in Wt: 136lbs BSA: 1.68 BP: 111/74 mmHg Indications: CM,CAD,HTN,SMOKER,HLD,HC CVA,PVD,HX CVA 2D Dimensions LVOT 1.72 cm (M/F) 1.5-2.5 M-Mode Dimensions RVDd 2.94 cm (0.9-2.6) LA Diam 3.34 cm (1.9-4.0) LVDd 4.94 cm (3.5-5.7) Ao Diam 2.91 cm (2.0-3.7) LVDs 4.32 cm (3.5-5.7) IVSd 0.63 cm (0.6-1.1) PWd 1.16 cm (0.6-1.1) EF (Teich) 27.00% FS 12.60% EDV (Teich) 115.00 mL ESV (Teich) 84.00 mL LV Diastology E Decel Time 227.00 (160-240 msec) E/A Ratio 0.9 MED E' 3.90 (< 7 cm/sec) E'/MED E' Ratio 14.62 (>14) LAT E' 7.30 (<10 cm/sec) E/LAT E' Ratio 7.81 (>14) Mitral Valve MV E Max Andrew. 57.00 (40-130 cm/s) MV A Velocity 67.00 (40-130 cm/s) E/A Ratio 0.85 MV Decel. Time 227.00 (160-240 ms) MV PHT 66.00 ms Pulmonary Valve PV Peak Velocity 67.00 (50-150 cm/s) Tricuspid Valve TR P. Velocity 227.00 cm/s Left Ventricle Left atrium is mildly enlarged, left ventricle is mildly dilated, severe reduced left ventricular systolic function, visually estimated ejection fraction 30%, there is marked hypokinesis involving the mid to distal septum, anterior apical wall. Diastolic parameters are inconclusive, a repeat study with Definity contrast is recommended to exclude presence of left ventricular apical thrombus. Right Ventricle Right atrium and right ventricle are normal size and contractility. Aortic Valve Aortic valve is minimally thickened and fibrosed. There is no aortic stenosis or aortic insufficiency. Mitral Valve Mitral valve is grossly normal, there is mild mitral regurgitation. Tricuspid Valve Tricuspid valve is grossly normal, there is mild tricuspid regurgitation, tricuspid regurgitation jet velocity is inadequate for calculation of the right ventricular systolic pressure. Pulmonic Valve Pulmonic valve is poorly visualized. Great Vessels Aortic root is normal size. Pericardium No significant pericardial effusion noted. Conclusion 1. Mildly enlarged left atrium, mildly dilated left ventricle, severe reduced left ventricular systolic function, visually estimated ejection fraction 30% with segmental wall motion abnormality described above, diastolic parameters are inconclusive, a repeat study with Definity contrast is recommended to exclude presence of left ventricular apical thrombus. 2. Mild mitral and tricuspid regurgitation. 4. No significant pericardial effusion noted. Electronically signed by : Christopher Noyola, 01/31/2020 12:50:46
== END ==
PROVIDERS: PCP Family Medicine; Visit Provider Urology
DX: E78.5 Hyperlipidemia, unspecified (principal); F17.200 Nicotine dependence, unspecified, uncomplicated; I07.1 Rheumatic tricuspid insufficiency; I11.9 Hypertensive heart disease without heart failure; I25.10 Atherosclerotic heart disease of native coronary artery without angina pectoris; I25.5 Ischemic cardiomyopathy; I34.0 Nonrheumatic mitral (valve) insufficiency; E11.9 Type 2 diabetes mellitus without complications; Z79.4 Long term (current) use of insulin
CPT/HCPCS: 93306

== ENCOUNTER → 2020-02-06 09:09 | Outpatient (CLI) | payer MEDICARE, MEDICAID, SELFPAY ==
--- NOTE | 2020-02-06 09:09 | CA_ITS ---
APPROVED REPORT EXAM: Limited 2D Echocardiogram with contrast Psychologist Research Assistant: Marianne Dangelo RDCS Ht: 5 ft 5 in Wt: 136lbs BSA: 1.68 BP: 111/74 mmHg Indications: DEFINITY LIMITED TO R/O THROMBUS Conclusion 1. Limited transthoracic 2D echo to exclude presence of left ventricular apical thrombus by utilizing Definity contrast. 2. There is no left ventricular apical mural thrombus seen. Electronically signed by : Christopher Noyola, 02/06/2020 11:59:53
== END ==
PROVIDERS: PCP Family Medicine; Visit Provider Urology
DX: E78.5 Hyperlipidemia, unspecified (principal); F17.200 Nicotine dependence, unspecified, uncomplicated; I07.1 Rheumatic tricuspid insufficiency; I10 Essential (primary) hypertension; I25.10 Atherosclerotic heart disease of native coronary artery without angina pectoris; I25.5 Ischemic cardiomyopathy; I34.0 Nonrheumatic mitral (valve) insufficiency
CPT/HCPCS: 93308; Q9957

== ENCOUNTER → 2020-03-25 15:31 | Outpatient (CLI) | payer MEDICARE, MEDICAID, SELFPAY ==
--- NOTE | 2020-03-25 15:39 | XR_ITS ---
PROCEDURE: XR FOOT WT BEARING RT 3V CLINICAL INDICATION: ulcer Follow-up surgery, diabetic ulcers COMPARISON: CR XR FOOT RT MIN 3V from 09/04/2019 CR XR FOOT RT MIN 3V from 09/05/2019 CR XR FOOT WT BEARING RT 3V from 10/08/2019 CR XR FOOT RT MIN 3V from 10/23/2019 FINDINGS: Prior amputation at the base of the 5th metatarsal and at the distal aspect of the 1st metatarsal. Skin clips have been removed. No bony erosive process or other acute finding evident. The joint spaces are well-preserved. No significant degenerative/arthritic changes. No erosive changes evident. Other findings:None. IMPRESSION: Postsurgical changes. No acute finding Dictated by: Sidney Napoles MD 03/25/2020 17:38 Sidney Napoles MD in [facility] 03/25/2020 17:38
[2020-03-25 16:59] LABS: Basophils # 0.1 K/mm3 (0-0.2); Basophils % 0.4 % (0.1-2.0); Eosinophils # 0.3 K/mm3 (0.0-0.4); Eosinophils % 1.5 % (0.1-12.0); Hematocrit 40.9 % (37.0-47.0); Hemoglobin 13.8 g/dL (12.2-16.2); Lymphocytes # 2.1 K/mm3 (0.7-4.5); Lymphocytes % 10.4 % (10-50); Mean Corpuscular HGB Conc 33.7 g/dL (31.8-35.4); Mean Corpuscular Hemoglobin 30.1 pg (27.0-31.2); Mean Corpuscular Volume 89.2 fl (81-99); Mean Platelet Volume 8.2 fl (7.4-10.4); Monocytes # 0.8 K/mm3 (0.1-1.0); Neutrophils % 83.7 % (37.0-80.0); Platelet Count 529 K/mm3 (142-424); Red Blood Count 4.58 M/mm3 (4.20-5.40); Red Cell Distribution Width 13.3 % (11.5-17.5); White Blood Count 20.3 K/mm3 (4.8-10.8)
[2020-03-25 17:11] LABS: MANUAL DIFFERENTIAL MANUAL DIFFERENTIAL (MANUAL DIFF)
[2020-03-25 17:32] LABS: Hemoglobin A1C 11.2 % (4.0-6.0)
[2020-03-25 18:08] LABS: Erythrocyte Sedimentation Rate 72 mm/hr (0-20)
[2020-03-25 18:11] LABS: Eosinophils % 1 % (0-3); Lymphocytes % 23 % (10-50); Monocytes % 7 % (2-9); Neutrophils % 69 % (42-76); Platelet Estimate Moderate I; RBC Morphology Normal; Total Cells Counted 100
[2020-03-25 18:13] LABS: Chloride 94 mmol/L (98-107); Potassium 3.9 mmoL/L (3.5-5.1); Sodium 132 mmol/L (136-145)
[2020-03-25 18:23] LABS: Alanine Aminotransferase 16 U/L (12-78); Aspartate Amino Transferase 21 U/L (14-36); Bilirubin,Total 0.6 mg/dl (0.2-1.3); Estimated Glomerular Filt Rate 77 ml/min (>60); GFR (African American) 93 ML/MIN (>60)
[2020-03-25 18:36] LABS: Albumin Level 3.8 g/dl (3.5-5.0); Albumin/Globulin Ratio 1.1 (1.1-1.8); Alkaline Phosphatase 203 U/L (38-126); Anion Gap 15.9 mEq/L (5-15); Blood Urea Nitrogen 7 mg/dl (7-17); Calcium 9.4 mg/dl (8.4-10.2); Carbon Dioxide 26 mmol/L (22.0-30.0); Globulin 3.5 g/dL (1.3-3.2); Total Protein,Serum 7.3 g/dl (6.3-8.2)
[2020-03-25 18:41] LABS: C-Reactive Protein 143.3 mg/L (0-4)
[2020-03-25 19:30] LABS: Glucose 460 mg/dl (74-100)
== END ==
PROVIDERS: PCP Family Medicine; Visit Provider Nurse Practitioner
DX: E10.65 Type 1 diabetes mellitus with hyperglycemia (principal); L97.519 Non-pressure chronic ulcer of other part of right foot with unspecified severity
CPT/HCPCS: 36415; 73630; 80053; 83036; 85007; 85025; 85651; 86140; 87070; 87077; 87186; 87205

== ENCOUNTER 2020-03-26 10:44 | Inpatient (IN) | payer MEDICARE, MEDICAID, SELFPAY ==
[2020-03-26] VITALS (19 sets, daily range): BP systolic 81–117; BP diastolic 52–65; PULSE 72–100; RESP 16–20; TEMP 36.4–36.8; O2SAT 94–99; BMI 20.9
--- NOTE | 2020-03-26 11:03 | XR_ITS ---
PROCEDURE: XR FOOT RT MIN 3V CLINICAL INDICATION: Diabetic foot ulcer COMPARISON: CR XR FOOT RT MIN 3V from 09/05/2019 CR XR FOOT WT BEARING RT 3V from 10/08/2019 CR XR FOOT RT MIN 3V from 10/23/2019 CR XR FOOT WT BEARING RT 3V from 03/25/2020 FINDINGS: Prior amputation at the base of the 5th metatarsal and at the midshaft of the 1st metatarsal. Soft tissue defect is present along the lateral aspect of the foot lateral to the midshaft of the 4th metatarsal. No bony destructive process apparent. IMPRESSION: Postsurgical changes with soft tissue ulceration in the lateral foot with no evidence of acute osteomyelitis Dictated by: Sidney Napoles MD 03/26/2020 13:30 Sidney Napoles MD in [facility] 03/26/2020 13:30
--- NOTE | 2020-03-26 11:20 | US_ITS ---
APPROVED REPORT Exam Type: Ankle to Brachial Index Armor Reconnaissance Vehicle Driver: RT Lincoln(R) Indications Current Smoker Risk Factors Hypertension CAD Hyperlipidemia Diabetes Current Smoker Surgery/Intervention Stent : Site : right Pressures/Indices Right Indices Left Indices Brachial 101.00 mmHg Brachial 104.00 mmHg Low Thigh 60.00 mmHg 0.58 Low Thigh 52.00 mmHg 0.50 Calf 47.00 mmHg 0.45 Calf 47.00 mmHg 0.45 Ankle(PT) 37.00 mmHg 0.36 Ankle(PT) 51.00 mmHg 0.49 Ankle(DP) 48.00 mmHg 0.46 Ankle(DP) 53.00 mmHg 0.51 Digit Digit 56.00 mmHg 0.54 Findings RT ALAN=0.5 LT ALAN=0.5 RT TBI=not obtainable LT TBI=0.5 Technically limited study due to patient movement Waveforms were abnormal bilaterally Diminished pulses bilaterally Multiple attempts made to obtain TBI pressure on right 2nd digit but unable to detect viable waveform Conclusion RT ALAN=0.5 LT ALAN=0.5 RT TBI=not obtainable LT TBI=0.5 Technically limited study due to patient movement Waveforms were abnormal bilaterally Diminished pulses bilaterally Multiple attempts made to obtain TBI pressure on right 2nd digit but unable to detect viable waveform Electronically signed by : Sidney Napoles MD 03/26/2020 17:59:48
--- NOTE | 2020-03-26 11:28 | CT_ITS ---
PROCEDURE: CT FOOT RT WO CON CLINICAL HISTORY: diabetic foot ulcer COMPARISON: CR XR FOOT RT MIN 3V from 03/26/2020 TECHNIQUE: Axial images obtained with sagittal and coronal reformats. All CT scans at the facility use one or more dose reduction, viz: automated exposure control, ma/kV adjustment per patient size (including targeted exams where dose is matched to indication, i.e. head), or iterative reconstruction technique. FINDINGS: There has been prior amputation at the base of the 5th metatarsal. There is overlying bandage and there is soft tissue defect along the mid aspect of the foot laterally. This is lateral to the mid shaft of the 4th metatarsal. No bony erosive changes evident at this area. The overlying tissue coverage at the base of the 5th metatarsal is very thinned. There is however no bony destructive process evident that would suggest acute osteomyelitis. There is an old fracture involving the midshaft of the 1st metatarsal with prior amputation at the distal aspect of the 1st metatarsal with some well circumscribed calcifications at this area. No obvious abscess.. IMPRESSION: There are postsurgical changes present from prior 5th and 1st metatarsal amputation. The tissue coverage at the remaining base of 5th metatarsal is very thin but there is no bony destructive process that would indicate osteomyelitis. Soft tissue defect is present in the lateral foot lateral to the midshaft of the 4th metatarsal with no obvious bony destructive process. No abscess apparent. Dictated by: Sidney Napoles MD 03/26/2020 13:29 Sidney Napoles MD in [facility] 03/26/2020 13:29
--- NOTE | 2020-03-26 11:45 | PC.NURSE ---
PT ASSESSED AT THIS TIME. BILATERAL LUNG SOUNDS CLEAR. NO EDEMA NOTED. DIABETIC PRESSURE ULCER NOTED TO R FOOT, NO DRAINAGE NOTED APPEARS TO POSSIBLY BE INFECTED 2 DIFFERENT WOUNDS. R GREAT TOE AMPUTATION AND R LITTLE TOE AND PART OF FOOT AMPUTATION. CONSULT WITH DR. ROMERO AND DR. MARTIN. WILL CONTINUE TO OBSERVE.
--- NOTE | 2020-03-26 11:45 | HMH.PHACONS ---
- Pharmacy Consult Date: 03/26/20 Time: 11:45 Referring provider: DR. ARMENDARIZ Reason for Consult:: VANCOMYCIN DOSING Allergies and ADEs:: Allergies Allergy/AdvReac Type Severity Reaction Status Date / Time No Known Allergies Allergy Verified 03/25/20 14:31 Home Medications:: Home Medications Medication Instructions Recorded Confirmed Type Amitriptyline HCl 100 mg PO HS 10/22/17 03/25/20 History Insulin Lispro [Humalog] 4 unit SQ DAILY 10/22/17 03/25/20 History Aspirin [Aspirin 81mg chewable 81 mg PO DAILY 10/02/18 03/25/20 History tab] Insulin Glargine,Hum.rec.anlog 10 unit SQ HS 10/11/18 03/25/20 History [Lantus Insulin 100units/mL 10mL vial] atorvastatin 10 mg tablet 10 mg PO HS #30 tab 07/16/19 03/25/20 Rx Cyanocobalamin (Vitamin B-12) 1,000 mcg PO DAILY 09/04/19 03/25/20 History [Vitamin B-12 1000mcg Tablet] Gabapentin 600 mg PO TID 09/04/19 03/25/20 History Furosemide [Furosemide 40MG tAB*] 40 mg PO DAILYP PRN #30 tab 09/06/19 03/25/20 Rx Sacubitril/Valsartan [Entresto] 1 tab PO BID 09/27/19 03/25/20 History bupropion HCl 150 mg 24 hr tablet, 150 mg PO DAILY tab 10/08/19 03/25/20 History extended release ticagrelor 90 mg tablet 90 mg PO BID #30 tab 10/31/19 03/25/20 Rx carvedilol 6.25 mg tablet 6.25 mg PO BID #60 tab 01/27/20 03/25/20 Rx clindamycin HCl 300 mg capsule 300 mg PO TID 14 Days #42 cap 03/25/20 03/25/20 Rx collagenase clostridium histo. 250 1 applic TOPICAL DAILY PRN #90 g 03/25/20 03/25/20 Rx unit/gram topical ointment Height: 1.65 m Weight: 56.954 kg Laboratory Results:: N Medical History: Reports:: Cardiomyopathy, Coronary Artery Disease, Cerebrovascular Accident, Deep Vein Thrombosis, Diabetes Mellitus Type 2, Hyperlipidemia, Hypertension, Migraine, MRSA, Peripheral Vascular Disease, Transient Ischemic Attacks (TIA) Denies:: Cancer, Diabetes Mellitus Type 1, Internal Pacemaker, Seizures Assessment and Plan - Assessment and plan all Dx Assessment and Plan for all problems:: Patient: Floor: Age: 49 yo Serum creatinine: 0.8 mg/dL Height: 65.0 Inches Weight (kg): 57 IBW (kg): 57.00 Dosing wt(kg): 57 Estimated Creatinine clearance (ml/min): 78.2 CRCL method: Cockcroft and Gault using ibw(default). Drug selected: Vancomycin Loading dose (mg): 0 Vd (liters): 45.6 (factor used: 0.8 L/kg) Rajat (hr-1): 0.069 Half life (hrs): 10.05 Recommended dose: 1000 mg Interval: 12 hrs Infusion time (hrs): 2.0 Predicted peak (mcg/mL): 36.4 Predicted trough (mcg/mL): 18.26 Total body weight is being used for vancomycin dosing. Recommendations: Give Vancomycin 1000 mg q 12 hrs with an expected Cpeak of 36.4 mcg/ml and an expected Ctrough of 18.26 mcg/ml Thank you for the consult, will continue to follow.
[2020-03-26 11:47] LABS: Basophils # 0.1 K/mm3 (0-0.2); Basophils % 0.7 % (0.1-2.0); Eosinophils # 0.4 K/mm3 (0.0-0.4); Hematocrit 35.6 % (37.0-47.0); Lymphocytes # 2.1 K/mm3 (0.7-4.5); Lymphocytes % 11.9 % (10-50); Mean Corpuscular HGB Conc 31.4 g/dL (31.8-35.4); Mean Corpuscular Hemoglobin 28.8 pg (27.0-31.2); Mean Corpuscular Volume 91.7 fl (81-99); Mean Platelet Volume 7.2 fl (7.4-10.4); Monocytes # 0.8 K/mm3 (0.1-1.0); Monocytes % 4.4 % (1.7-9.3); Neutrophils # 14.3 K/mm3 (1.8-7.8); Neutrophils % 81.1 % (37.0-80.0); Platelet Count 427 K/mm3 (142-424); Red Blood Count 3.88 M/mm3 (4.20-5.40); White Blood Count 17.7 K/mm3 (4.8-10.8)
[2020-03-26 11:50] LABS: MANUAL DIFFERENTIAL MANUAL DIFFERENTIAL (MANUAL DIFF)
[2020-03-26 11:54] LABS: Alanine Aminotransferase 12 U/L (12-78); Albumin Level 3.5 g/dl (3.5-5.0); Alkaline Phosphatase 171 U/L (38-126); Anion Gap 11.2 mEq/L (5-15); Aspartate Amino Transferase 18 U/L (14-36); Bilirubin,Total 0.6 mg/dl (0.2-1.3); Blood Urea Nitrogen 7 mg/dl (7-17); Calcium 9.1 mg/dl (8.4-10.2); Carbon Dioxide 29 mmol/L (22.0-30.0); Chloride 97 mmol/L (98-107); Creatinine Clearance Estimated 69 mL/min (50-200); Estimated Glomerular Filt Rate 67 ml/min (>60); GFR (African American) 81 ML/MIN (>60); Globulin 3.5 g/dL (1.3-3.2); Glucose 366 mg/dl (74-100); Potassium 3.2 mmoL/L (3.5-5.1); Sodium 134 mmol/L (136-145)
[2020-03-26 11:59] LABS: C-Reactive Protein 171.2 mg/L (0-4)
[2020-03-26 12:07] LABS: Eosinophils % 2 % (0-3); Lymphocytes % 14 % (10-50); Monocytes % 8 % (2-9); Neutrophils % 76 % (42-76); Platelet Estimate Normal; RBC Morphology Normal; Total Cells Counted 100
[2020-03-26 12:11] LABS: Coronavirus 19 IgG Antibody Negative (Negative); Coronavirus 19 IgM Antibody Negative (Negative)
--- NOTE | 2020-03-26 12:27 | HMH.ORTHOCON ---
*Admission Date: 03/26/20 *Reason for consult:: Right diabetic foot infection *History of present illness: Patient is a 49-year-old female who was seen by the LINA martínez in the podiatry clinic 03/25/20 for right foot diabetic infection. Labs will for obtained which resulted with elevated white blood cell count, 20.3, ESR 72, CRP 143.3, glucose 360, Ha1c 11.2%. The PCP Dr. Maldonado and SENIOR ACCOUNT MANAGER Danay Joya were contacted this morning regarding direct admission of the patient for surgical I&D and wound debridement. Patient has a history of ankle trolled diabetes and peripheral arterial disease. PCP requesting cardiac clearance prior to surgery. [facility] History I have reviewed the patient's past medical history: Yes Medical History: Reports:: Cardiomyopathy, Congestive Heart Failure, Coronary Artery Disease, Cerebrovascular Accident, Deep Vein Thrombosis, Diabetes Mellitus Type 1, Diabetes Mellitus Type 2, Hyperlipidemia, Hypertension, Migraine, Peripheral Vascular Disease, Transient Ischemic Attacks (TIA) Denies:: Cancer, Internal Pacemaker, MRSA, Seizures *Have you ever received a pneumonia vaccine?: No *Have you received a flu vaccine this season?: No Other Medical History: Denies: Blood Transfusion Reaction Laterality Cases: Right: Other Other Surgeries: Yes: No Previous Surgery, Cardiac Catheterization, Cholecystectomy, Coronary Stent, Tubal Ligation. 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., pinky toe R foot) Fractures: No - *Social History Last grade of school completed: High school graduate Smoking Status: Current every day smoker Tobacco Type: cigarettes # Packs/Day (cigarettes): 1 #Yrs smoked (if former smoker): 30 Alcohol Intake: never Alcohol Intake Frequency:: a few times a month Substance Use Type: denies use *Occupational Status:: disabled Housing: house Household Members: family *Travel in the last 8 weeks: None Family Hx:: Diabetes, Heart Attack Review of Systems - Review of Systems Review of systems:: pertinent systems reviewed and negative unless documented below - Constitutional Reports fatigue, Reports malaise - Eyes Reports blind spots - ENT Reports abnormal hearing - *Cardiovascular Denies chest pain - *Respiratory Denies shortness of breath - *Gastrointestinal Denies abdominal pain - *Genitourinary Denies abnormal periods - *Musculoskeletal Reports joint pain, Reports body aches, Reports radiating pain into limb - Integumentary/Breasts Reports hair loss, Reports dry skin, Reports skin ulcer, Reports wounds - *Neurologic Reports tingling/numbness/burning sensations - Psychiatric Denies abnormal sleep pattern - Endocrine Reports cold intolerance, Reports increased thirst - Hematologic/Lymphatic Reports easy bruising - Allergic/Immunologic Denies GI upset with certain foods Meds Home Medications Medication Instructions Recorded Confirmed Type Amitriptyline HCl 100 mg PO HS 10/22/17 03/26/20 History Insulin Lispro [Humalog] 4 unit SQ DAILY 10/22/17 03/26/20 History Aspirin [Aspirin 81mg chewable 81 mg PO DAILY 10/02/18 03/26/20 History tab] Insulin Glargine,Hum.rec.anlog 10 unit SQ HS 10/11/18 03/26/20 History [Lantus Insulin 100units/mL 10mL vial] Cyanocobalamin (Vitamin B-12) 1,000 mcg PO DAILY 09/04/19 03/26/20 History [Vitamin B-12 1000mcg Tablet] Gabapentin 600 mg PO TID 09/04/19 03/26/20 History Furosemide [Furosemide 40MG tAB*] 40 mg PO DAILYP PRN #30 tab 09/06/19 03/26/20 Rx Sacubitril/Valsartan [Entresto] 1 each PO BID 09/27/19 03/26/20 History clindamycin HCl 300 mg capsule 300 mg PO TID 14 Days #42 cap 03/25/20 03/26/20 Rx collagenase clostridium histo. 250 1 applic TOPICAL DAILY PRN #90 g 03/25/20 03/26/20 Rx unit/gram topical ointment Atorvastatin Calcium [Lipitor 10mg 10 mg PO HS 03/26/20 03/26/20 History Tab] Ticagrelor [Brilinta] 90 mg PO BID 03/26/20 03/26/20 History carvediloL [Carvedilol 6.25mg Tab] 6
--- NOTE | 2020-03-26 12:32 | HMH.PHAINT ---
MEDICATION RECONCILIATION COMPLETED ON PATIENT USING EXTERNAL FILL HISTORY FROM PHARMACY, YARED REPORT, AND LIST FROM [facility]/CARDIOLOGY. -ZENY OLIVERD
--- NOTE | 2020-03-26 13:00 | HMH.CNCARD ---
History of Present Illness Consult date: 03/26/20 Requesting physician: Hugh Maldonado Consult reason: pre-op evaluation Chief complaint: Pre-op evaluation Additional Medical History:: 1. Coronary artery disease A. Echo, 11/2017, moderately dilated LV with EF 20 to 25% with inferolateral, posterolateral mildly hypokinetic with the remaining segments markedly hypokinetic. Moderate to severe MR and TR with RVSP of 73 mmHg consistent with severe pulmonary hypertension. B. [facility], 12/2017, successful stenting of mid LAD with 2 LARRY, proximal ramus with 1 LARRY and proximal to mid dominant RCA with 1 LARRY. Left ventriculogram EF 25-30% with anterior and apical wall severe hypokinesis with moderate inferior wall hypokinesis. C. Echo, 03/2018, LAE, mild concentric LVH, EF 40-45% with abnormal septal wall motion. Mild MR, TR, RVSP 38 mmHg D. [facility], 09/2019, ANGIOGRAPHIC RESULTS The left main artery Is an ostial concentric 80 to 90% stenosis The left anterior descending artery Is proximally normal and then has stents throughout the mid segment which are widely patent free of in-stent restenosis with excellent proximal distal transitioning. A first diagonal artery is widely patent while there appears to be an ostially occluded small second diagonal artery. The circumflex artery The ramus intermedius originates off the left main artery and has a stent in the proximal segment which has 40% ostial in-stent restenosis in the proximal segment and 30% distal in-stent restenosis. RIDDHI-3 flow is still present. The circumflex artery itself is a small vessel giving rise to a solitary obtuse marginal artery The right coronary artery Is a dominant vessel and has stents in the proximal segment which have 30% concentric in-stent restenosis and distal 20 to 30% in-stent restenosis. The distal vessel has a concentric 80% stenosis. The posterior lateral branch is a large vessel has an ostial 40 to 50% stenosis and a mid vessel 40% stenosis. The posterior descending artery is a large vessel The WORLEY ventriculogram reveals Dilated ventricle ejection fraction 35% The left ventricular end-diastolic pressure 30 mmHg IMPRESSION Coronary disease as described above Successful stenting of the ostial left main artery severe disease reduced to 0% with one drug-eluting stent Successful stenting of the distal dominant right coronary severe disease reduced to 0% with one drug-eluting stent Reduced ejection fraction secondary to ischemic cardiomyopathy Elevated LVEDP PLAN 1. Dual antiplatelet therapy 2. Patient strongly advised to discontinue tobacco products immediately. Currently her 2 packs of cigarettes per day is causing accelerated atherosclerosis. 3. LDL less than 55 4. Cardiac rehabilitation 5. Standard therapy for systolic heart failure Electronically signed by : Jeff Martinez, 09/27/2019 11:37:48 2. Diabetes mellitus, type II 3. Hypertension 4. Hyperlipidemia 5. Previous CVA with left-sided deficit, age 34, treated with aspirin and Plavix 6. History of medication noncompliance 7. Long-term tobacco use 8. Recurrent sepsis History of present illness: 49-year-old white female with prior coronary artery disease/stenting and recurrent diabetes with diabetic foot ulcers was admitted for sepsis with worsening ulcer of the right foot with plans for surgical intervention. Cardiology consulted for evaluation and preop assessment. Patient's most recent coronary stenting was in September of last year to the left main artery. She has been doing well until recently she relates some left shoulder discomfort that is not particularly associated with activity but more associated with eating greasy foods. Symptoms last about 30 minutes and resolve after taking her blood pressure medicine early or belching. [facility] History Medical History: Reports:: Cardiomyopathy, Congestive Heart Bryant
--- NOTE | 2020-03-26 13:03 | XR_ITS ---
PROCEDURE: XR CHEST PORTABLE CLINICAL HISTORY: pt going for sx Cough, smoker COMPARISON: CR Chest from 10/02/2018 CR XR CHEST PORTABLE from 09/04/2019 CR XR CHEST PORTABLE PICC PLAC from 09/06/2019 FINDINGS: The cardiomediastinal silhouette and pulmonary vascularity are within normal limits. Coronary artery calcification and/or stent noted. Clear lungs. IMPRESSION: No acute findings. Dictated by: Sidney Napoles MD 03/26/2020 14:58 Sidney Napoles MD in [facility] 03/26/2020 14:58
--- NOTE | 2020-03-26 13:43 | CA_ITS ---
APPROVED REPORT EXAM: Comprehensive 2D, Doppler, and color-flow Echocardiogram Preform Machine Operator: Ester Go CRT Ht: 5 ft 5 in Wt: 125lbs BSA: 1.62 BP: 103/52 mmHg Indications: PRE-OP,CM,CAD,CHF,PVD,SMOKER,DM,HLD,HTN 2D Dimensions LVOT 1.70 cm (M/F) 1.5-2.5 M-Mode Dimensions RVDd 2.41 cm (0.9-2.6) LA Diam 3.69 cm (1.9-4.0) LVDd 5.70 cm (3.5-5.7) Ao Diam 2.60 cm (2.0-3.7) LVDs 4.73 cm (3.5-5.7) IVSd 0.74 cm (0.6-1.1) PWd 0.57 cm (0.6-1.1) EF (Teich) 35.10% FS 17.00% EDV (Teich) 160.00 mL ESV (Teich) 103.90 mL LV Diastology E Decel Time 150.00 (160-240 msec) E/A Ratio 1.0 MED E' 5.90 (< 7 cm/sec) E'/MED E' Ratio 14.92 (>14) LAT E' 11.70 (<10 cm/sec) E/LAT E' Ratio 7.52 (>14) Mitral Valve MV E Max Andrew. 88.00 (40-130 cm/s) MV A Velocity 90.00 (40-130 cm/s) E/A Ratio 0.98 MV Decel. Time 150.00 (160-240 ms) MV PHT 44.00 ms Pulmonary Valve PV Peak Velocity 102.00 (50-150 cm/s) Tricuspid Valve TR P. Velocity 261.00 cm/s RAP Estimate 10.00 mmHg RVSP 37.30 mmHg Left Ventricle Left atrium is mildly enlarged, left ventricle is qualitatively mildly dilated, reduced left ventricular systolic function, visually estimated ejection fraction 30%, there is marked hypokinesis involving mid to distal septum, anterior apical, apical and anteroseptal wall. There is grade 1 diastolic dysfunction seen without tissue Doppler evidence of raise left atrial pressure. Right Ventricle Right atrium and right ventricle are normal size and contractility. Aortic Valve Aortic valve is minimally thickened and fibrosed, there is no aortic stenosis or aortic insufficiency. Mitral Valve Mitral valve is grossly normal, there is mild mitral regurgitation. Tricuspid Valve Tricuspid valve is grossly normal, there is mild tricuspid regurgitation, tricuspid regurgitation jet velocity is inadequate for calculation of the right ventricular systolic pressure. Pulmonic Valve Pulmonic valve is poorly visualized. Great Vessels Aortic root is normal size. Pericardium No significant pericardial effusion noted. Conclusion 1. Mildly enlarged left atrium, mildly dilated left ventricle, visually estimated ejection fraction 30% with segmental wall motion abnormality described above, grade 1 diastolic dysfunction seen without tissue Doppler evidence of raise left atrial pressure. 2. Mild mitral and tricuspid regurgitation. 3. No significant pericardial effusion noted. Electronically signed by : Christopher Noyola, 03/26/2020 14:43:56
--- NOTE | 2020-03-26 13:53 | ECG_ITS ---
APPROVED REPORT Exam: Resting ECG HR:84 bpm ECG Measurements Heart Rate 84 AXES AK 128 P 63 QRSd 130 QRS 220 QT 374 T 21 QTc 441 Conclusion Normal sinus rhythm Right superior axis deviation Incomplete RBBB No changes from prior Abnormal ECG Electronically signed by : Kennedy Selby, 03/26/2020 19:41:33
[2020-03-26 14:06] LABS: Erythrocyte Sedimentation Rate 57 mm/hr (0-20); Hemoglobin 11.2 g/dL (12.2-16.2)
[2020-03-26 14:18] LABS: HCG Qualitative, Serum Negative (Negative)
--- NOTE | 2020-03-26 14:33 | HMH.HP ---
*Admission Date: 03/26/20 *Chief complaint: Foot ulcer, diabetes mellitus *History of present illness: This 49-year-old white female has poorly controlled diabetes mellitus. She was seen in podiatry clinic yesterday and found to have severe ulceration of the lateral aspect of the right foot where she has previously had toe amputations. She is admitted at this time per Dr. Aly's request for at least surgical debridement of the wound and likely bone biopsy. The status of the foot is obviously tenuous. As an outpatient yesterday her white blood cell count was elevated. Her potassium is low. She has been started on IV antibiotics and is receiving a run of potassium at this time. Dr. Aly intends to proceed with surgery today. Patient has been seen by cardiology and cleared for surgery. [facility] History Medical History: Reports:: Cardiomyopathy, Congestive Heart Failure, Coronary Artery Disease, Cerebrovascular Accident, Deep Vein Thrombosis, Diabetes Mellitus Type 1, Diabetes Mellitus Type 2, Hyperlipidemia, Hypertension, Migraine, Peripheral Vascular Disease, Transient Ischemic Attacks (TIA) Denies:: Cancer, Internal Pacemaker, MRSA, Seizures *Have you ever received a pneumonia vaccine?: No *Have you received a flu vaccine this season?: No Other Medical History: Denies: Blood Transfusion Reaction Comment:: See cardiology note for details of her coronary vascular history Laterality Cases: Right: Other Other Surgeries: Yes: No Previous Surgery, Cardiac Catheterization, Cholecystectomy, Coronary Stent, Tubal Ligation. 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., pinky toe R foot) Fractures: No - *Social History Last grade of school completed: High school graduate Smoking Status: Current every day smoker Tobacco Type: cigarettes # Packs/Day (cigarettes): 1 #Yrs smoked (if former smoker): 30 Alcohol Intake: never Alcohol Intake Frequency:: a few times a month Substance Use Type: denies use *Occupational Status:: disabled Housing: house Household Members: family *Travel in the last 8 weeks: None Family Hx:: Diabetes, Heart Attack Review of Systems - Constitutional Reports anorexia, Denies body ache(s), Denies chills - Eyes Denies change in vision - *Cardiovascular Denies chest pain, Denies shortness of breath - *Respiratory Denies chest congestion - *Gastrointestinal Denies abdominal pain - *Musculoskeletal Reports abnormal walking - *Neurologic Reports abnormal hearing, Reports tingling/numbness/burning sensations, Reports radiating pain Meds Home Medications Medication Instructions Recorded Confirmed Type RX: Amitriptyline HCl 100 mg PO HS 10/22/17 03/26/20 History RX: Insulin Lispro [Humalog] 4 unit SQ DAILY 10/22/17 03/26/20 History RX: Aspirin [Aspirin 81mg chewable 81 mg PO DAILY 10/02/18 03/26/20 History tab] RX: Insulin Glargine,Hum.rec.anlog 10 unit SQ HS 10/11/18 03/26/20 History [Lantus Insulin 100units/mL 10mL vial] RX: Cyanocobalamin (Vitamin B-12) 1,000 mcg PO DAILY 09/04/19 03/26/20 History [Vitamin B-12 1000mcg Tablet] RX: Gabapentin 600 mg PO TID 09/04/19 03/26/20 History RX: Furosemide [Furosemide 40MG 40 mg PO DAILYP PRN #30 tab 09/06/19 03/26/20 Rx tAB*] Sacubitril/Valsartan [Entresto] 1 each PO BID 09/27/19 03/26/20 History clindamycin HCl 300 mg capsule 300 mg PO TID 14 Days #42 cap 03/25/20 03/26/20 Rx collagenase clostridium histo. 250 1 applic TOPICAL DAILY PRN #90 g 03/25/20 03/26/20 Rx unit/gram topical ointment Atorvastatin Calcium [Lipitor 10mg 10 mg PO HS 03/26/20 03/26/20 History Tab] RX: carvediloL [Carvedilol 6.25mg 6.25 mg PO BID 03/26/20 03/26/20 History Tab] Ticagrelor [Brilinta] 90 mg PO BID 03/26/20 03/26/20 History Allergies Allergy/AdvReac Type Severity Reaction Status Date / Time No Known Allergies Allergy Verified 03/25/20 14:31 Exam Vital signs and Labs for Last 24 Hours: Temp Pulse Resp BP Pulse O
--- NOTE | 2020-03-26 16:25 | PC.NURSE ---
pt taken to surgery at this time
--- NOTE | 2020-03-26 18:22 | P.PN_ITS ---
[facility] Anesthesia Checklist - Patient Identification Patient Identification: Arm Band - Structural Data Admitted From: Inpatient Planned Operative Procedure/s: I&D right foot Consent for Planned Operative Procedure(s) Verified: Yes Verified Documents: Surgical Consent, History and Physical - NPO Status Verified Time NPO: 00:00 - Additional verifications Anesthesia Reactions: No Hx Blood Transfusions: No Blood Transfusion Reaction: No - Airway Assessment C-Spine Mobility Assessed: Yes (mp2) TMJ Mobility Assessed: Yes Dentition: Edentulous - Neurological Assessment Level of Consciousness: Awake, Alert - Anesthesia Plan Anesthesia Risk discussed: Yes Anesthesia Plan: Verified ASA Class: III Anesthesia Type: MAC [facility] History I have reviewed the patient's past medical history: Yes Medical History: Reports:: Cardiomyopathy, Congestive Heart Failure, Coronary Artery Disease, Cerebrovascular Accident, Deep Vein Thrombosis, Diabetes Mellitus Type 1, Diabetes Mellitus Type 2, Hyperlipidemia, Hypertension, Migraine, Peripheral Vascular Disease, Transient Ischemic Attacks (TIA) Denies:: Cancer, Internal Pacemaker, MRSA, Seizures *Have you ever received a pneumonia vaccine?: No *Have you received a flu vaccine this season?: No Other Medical History: Denies: Blood Transfusion Reaction Anesthesia experience/problems:: nac Laterality Cases: Right: Other Other Surgeries: Yes: Cardiac Catheterization, Cholecystectomy, Coronary Stent, Tubal Ligation. 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., pinky toe R foot) Fractures: No - *Social History Last grade of school completed: High school graduate Smoking Status: Current every day smoker Tobacco Type: cigarettes # Packs/Day (cigarettes): 1 #Yrs smoked (if former smoker): 30 Alcohol Intake: never Alcohol Intake Frequency:: a few times a month Substance Use Type: denies use *Occupational Status:: disabled Housing: house Household Members: family *Travel in the last 8 weeks: None Family Hx:: Diabetes, Heart Attack
--- NOTE | 2020-03-26 18:23 | HMH.ANESI ---
[facility] Anesthesia Record Part I Intake, IV Amount: 200 Estimated blood loss (mL): 5 Urine output (mL): 0 Blood Pressure: 81/52 SaO2: 94 Pulse Rate: 85 Respiratory Rate: 16 Temperature: 97.6 F Patient is:: Drowsy, Stable Stable to PACU at:: 18:20
--- NOTE | 2020-03-26 18:34 | HMH.OPNOTE ---
Date of procedure: 03/26/20 Pre-op Diagnosis:: 1. Right diabetic foot infection-gangrene 2. Right foot ulcer 3. Right foot abscess 4. PAD Post-op Diagnosis:: Same Procedure performed:: 1. Right foot incision and drainage 2. Right foot ulcer debridement 3. Right foot open bone biospy Surgeon:: Margaux Aly DPM ACCOUNTING PRACTICE MANAGER:: Barrett Devine Anesthesia: MAC Estimated blood loss (mL): 10 Clinical Note:: Ms. Marinelli is a 49-year-old female who was admitted 03/26/2020 for a right foot diabetic foot infection with gangrene. The white blood cell count yesterday was 20.3 and today 17.7 with elevated ESR and CRP. Right foot x-rays and CT scans negative for osteomyelitis. Patient was admitted for IV antibiotics as well as cardiac evaluation. Cardiac clearance granted. We discussed high risk for further amputation and partial foot loss. Patient understands if infection does not resolve or spreads more proximal she is high risk for below-knee amputation. We discussed conservative versus surgical treatment options. We discussed surgical intervention for incision and drainage abscess with ulcer debridement. We discussed staging and possibly doing another 1 washout as needed. Patient understands there is a very high likelihood she will also have an amputation in the next few days. Patient understands that there is a chance that the foot may change shape after surgery. Patient also understands that they could have wound healing complications including delayed healing and infection. We discussed that if the wound does not heal, it is possible that they may need a more proximal amputation and could result in further loss of digits, loss of partial foot or loss of leg. We discussed the risks and benefits in great detail. Other surgical risks include: prolonged pain and swelling, further infection requiring oral or IV antibiotics, delay in healing of soft tissue or bone, nerve or blood vessel damage, CRPS/RSD, DVT, anesthesia complications, and even . All questions answered. Patient verbalized understanding. Consent obtained. Operative findings:: Right foot gangrene with necrotic tissue proximally. The fifth metatarsal bone was necrotic with purulent drainage. There was an abscess pocket of creamy thick purulent drainage expressed from the plantar midfoot. About 10 cc of purulence expressed. The fourth metatarsal was soft and bone biopsy easily obtained. Fifth metatarsal bone soft and malodorous with obvious signs of infection. Infection appeared to track up the tendon. Given history of previous amputation, history of osteomyelitis, peripheral arterial disease and the extent of the new gangrenous infection, patient has a poor prognosis to heal the right foot. Patient will likely need tarsometatarsal disarticulation amputation. Operative note:: On this date and time the patient was deemed an appropriate surgical candidate. With informed consent time patient was transferred from the preoperative holding area to the operating theater placed on table in a normal supine position. MAC anesthesia induced. Right lower extremities prepped and draped in normal sterile fashion. No tourniquet utilized. Right foot incision and drainage: Attention was directed to the right lateral plantar foot where edema and erythema was noted along with a gangrenous necrotic malodorous wound. Utilizing a 15 blade, a linear incision was made over the wound site full-thickness. The wound was sharply excisionally debrided full-thickness and sent as a tissue culture. The fifth metatarsal bone was exposed with gangrenous changes. Utilizing blunt dissection with a hemostat, tissue was explored. There was a pocket of purulent thick creamy drainage along the plantar midfoot. There was some deep tracking along the plantar midfoot and up the peroneal tendon laterally. Right wound/ulcer debridement: 15 blade and forceps were used to sharply debride necrotic nonviable full soft tissue from the plantar lateral terrell
--- NOTE | 2020-03-26 18:40 | PC.NURSE ---
REPORT RECEIVED FROM Fabian DON RN FROM PACU.
--- NOTE | 2020-03-26 18:50 | PC.NURSE ---
PT ARRIVED TO ROOM 205 AT THIS TIME.
--- NOTE | 2020-03-26 19:47 | PC.NURSE ---
DR. ROMERO AT BEDSIDE TALKING TO PT
[2020-03-26 21:30] LABS: POC Glucose,Bedside 272 (70-110)
--- NOTE | 2020-03-26 23:25 | PC.NURSE ---
PT. HAS REFUSED FURTHER IV POTASSIUM INFUSIONS
[2020-03-27] VITALS (25 sets, daily range): BP systolic 83–142; BP diastolic 51–88; PULSE 75–114; RESP 12–21; TEMP 36.4–43; O2SAT 93–100; BMI 22.1; BMI 22.0
--- NOTE | 2020-03-27 04:34 | PC.NURSE ---
SX DSG ON R FOOT REMAINS C/D/I. PT. ABLE TO AMBULATE TO BR, NON WEIGHT BEARING WITH X1 ASSIST. NO C/O N/V/D, PAIN, SOA OR DIZZINESS THIS SHIFT.
[2020-03-27 06:53] LABS: POC Glucose,Bedside 187 (70-110)
[2020-03-27 07:22] LABS: Basophils # 0.1 K/mm3 (0-0.2); Basophils % 0.5 % (0.1-2.0); Eosinophils # 0.5 K/mm3 (0.0-0.4); Eosinophils % 2.9 % (0.1-12.0); Hematocrit 35.9 % (37.0-47.0); Hemoglobin 11.8 g/dL (12.2-16.2); Lymphocytes # 1.9 K/mm3 (0.7-4.5); Mean Corpuscular HGB Conc 32.8 g/dL (31.8-35.4); Mean Corpuscular Hemoglobin 29.3 pg (27.0-31.2); Mean Corpuscular Volume 89.4 fl (81-99); Mean Platelet Volume 7.3 fl (7.4-10.4); Monocytes # 0.7 K/mm3 (0.1-1.0); Monocytes % 4.7 % (1.7-9.3); Neutrophils # 12.5 K/mm3 (1.8-7.8); Neutrophils % 79.9 % (37.0-80.0); Platelet Count 448 K/mm3 (142-424); Red Blood Count 4.01 M/mm3 (4.20-5.40); Red Cell Distribution Width 13.5 % (11.5-17.5); White Blood Count 15.7 K/mm3 (4.8-10.8)
[2020-03-27 07:24] LABS: MANUAL DIFFERENTIAL MANUAL DIFFERENTIAL (MANUAL DIFF)
[2020-03-27 07:31] LABS: Alanine Aminotransferase 13 U/L (12-78); Albumin Level 3.1 g/dl (3.5-5.0); Albumin/Globulin Ratio 0.9 (1.1-1.8); Alkaline Phosphatase 185 U/L (38-126); Anion Gap 7.8 mEq/L (5-15); Aspartate Amino Transferase 31 U/L (14-36); Bilirubin,Total 0.6 mg/dl (0.2-1.3); Blood Urea Nitrogen 8 mg/dl (7-17); Calcium 8.7 mg/dl (8.4-10.2); Carbon Dioxide 28 mmol/L (22.0-30.0); Chloride 104 mmol/L (98-107); Creatinine Clearance Estimated 83 mL/min (50-200); Estimated Glomerular Filt Rate 77 ml/min (>60); GFR (African American) 93 ML/MIN (>60); Globulin 3.4 g/dL (1.3-3.2); Glucose 171 mg/dl (74-100); Potassium 3.8 mmoL/L (3.5-5.1); Sodium 136 mmol/L (136-145); Total Protein,Serum 6.5 g/dl (6.3-8.2)
[2020-03-27 07:37] LABS: C-Reactive Protein 133.5 mg/L (0-4)
[2020-03-27 07:48] LABS: Eosinophils % 3 % (0-3); Lymphocytes % 17 % (10-50); Monocytes % 4 % (2-9); Neutrophils % 76 % (42-76); Platelet Estimate Normal; RBC Morphology Normal; Total Cells Counted 100
[2020-03-27 07:55] LABS: Erythrocyte Sedimentation Rate > 140 mm/hr (0-20)
--- NOTE | 2020-03-27 08:14 | HMH.ANESII ---
[facility] Anesthesia Record Part II Discharge Time: 18:40 Destination: Medical Surgical Department PACU nurse assessment reviewed?: Yes Patient Condition:: Good Anesthesia Complications:: None Swallowing reflex intact?: Yes Cyanosis?: No Blood Pressure: 83/63 Pulse Rate: 84 Temperature: 97.6 F Mental Status: Alert & Oriented Pain level:: 0 Nausea and/or vomitting:: None Intake, IV Amount: 0
--- NOTE | 2020-03-27 08:26 | HMH.ACPN2 ---
Internal Medicine - PN: Subj *Date: 03/27/20 *Time: 08:26 Interval history: Patient was taken to the OR by Dr. Aly yesterday and she was found to have right foot gangrene with necrotic tissue . It was felt she will likely need amputation. This morning she states her pain is controlled. She was unable to rest very well last night. Exam Vital signs and Labs for Last 24 Hours: Temp Pulse Resp BP Pulse Ox 97.6 F 84 16 83/63 L 97 03/27/20 08:15 03/27/20 08:15 03/27/20 04:00 03/27/20 08:15 03/27/20 04:00 Laboratory Results - last 24 hr 03/26/20 11:10: Serum HCG, Qual Negative 03/26/20 11:20: WBC 17.7 H, RBC 3.88 L, Hgb 11.2 L D, Hct 35.6 L, MCV 91.7, MCH 28.8, MCHC 31.4 L, RDW 13.0, Plt Count 427 H, MPV 7.2 L, Neut % (Auto) 81.1 H, Lymph % (Auto) 11.9, Peach % (Auto) 4.4, Eos % (Auto) 2.0, Baso % (Auto) 0.7, Neut # (Auto) 14.3 H, Lymph # (Auto) 2.1, Peach # (Auto) 0.8, Eos # (Auto) 0.4, Baso # (Auto) 0.1, Total Counted 100, Neutrophils % (Manual) 76, Lymphocytes % (Manual) 14, Monocytes % (Manual) 8, Eosinophils % (Manual) 2, Platelet Estimate Normal, RBC Morphology Normal, ESR 57 H 03/26/20 11:20: Sodium 134 L, Potassium 3.2 L, Chloride 97 L, Carbon Dioxide 29, Anion Gap 11.2, BUN 7, Creatinine 0.90, Estimated Creat Clear 69, Estimated GFR 67, Est GFR ( Amer) 81, Glucose 366 H D, Calcium 9.1, Total Bilirubin 0.6, AST 18, ALT 12, Alkaline Phosphatase 171 H, C-Reactive Protein 171.2 H, Total Protein 7.0, Albumin 3.5, Globulin 3.5 H, Albumin/Globulin Ratio 1.0 L 01/07/21 11:20: SARS-CoV-2 IgG Ab (Rapid) Negative, SARS-CoV-2 IgM Ab (Rapid) Negative 03/26/20 20:46: POC Glucose 272 H 03/27/20 05:14: POC Glucose 187 H 03/27/20 06:20: WBC 15.7 H, RBC 4.01 L, Hgb 11.8 L, Hct 35.9 L, MCV 89.4, MCH 29.3, MCHC 32.8, RDW 13.5, Plt Count 448 H, MPV 7.3 L, Neut % (Auto) 79.9, Lymph % (Auto) 12.0, Peach % (Auto) 4.7, Eos % (Auto) 2.9, Baso % (Auto) 0.5, Neut # (Auto) 12.5 H, Lymph # (Auto) 1.9, Peach # (Auto) 0.7, Eos # (Auto) 0.5 H, Baso # (Auto) 0.1, Total Counted 100, Neutrophils % (Manual) 76, Lymphocytes % (Manual) 17, Monocytes % (Manual) 4, Eosinophils % (Manual) 3, Platelet Estimate Normal, RBC Morphology Normal 03/27/20 06:20: Sodium 136, Potassium 3.8, Chloride 104, Carbon Dioxide 28, Anion Gap 7.8, BUN 8, Creatinine 0.80, Estimated Creat Clear 83, Estimated GFR 77, Est GFR ( Amer) 93, Glucose 171 H D, Calcium 8.7, Total Bilirubin 0.6, AST 31 D, ALT 13, Alkaline Phosphatase 185 H, C-Reactive Protein 133.5 H, Total Protein 6.5, Albumin 3.1 L D, Globulin 3.4 H, Albumin/Globulin Ratio 0.9 L 03/27/20 06:20: ESR > 140 H I & O for Last 24 hours: Intake & Output 03/24/20 03/25/20 03/26/20 03/27/20 11:59 11:59 11:59 11:59 Intake Total 200 / 200 Balance 200 / 200 Weight 125 lb 9 oz 132 lb 12.8 oz - Constitutional no acute distress - *Routine Respiratory Exam Present: CTA bilaterally - *Routine Cardiovascular Exam Present: RRR - *Routine Abdominal Exam Present: soft (Pathology asked for is having ), normoactive bowel sounds. Absent: tenderness - *Routine Extremities Exam Absent: edema - *Routine Skin Exam Absent: rash Comments: Right foot with dressing in place - *Routine Neurological Exam Present: alert, oriented X3 Assessment and Plan (1) Gangrene of right foot Status: Acute Category: Medical Code(s): I96 - Gangrene, not elsewhere classified (2) Diabetic ulcer of right foot associated with diabetes mellitus due to underlying condition, with fat layer exposed Status: Acute Qualifiers: Diabetic foot ulcer location: unspecified part of foot Qualified Code(s): E08.621 - Diabetes mellitus due to underlying condition with foot ulcer; L97.512 - Non-pressure chronic ulcer of other part of right foot with fat layer exposed Category: Medical Code(s): E08.621 - Diabetes mellitus due to underlying condition with foot ulcer; L97.512 - Non-pressure chronic ulcer of other part of r
--- NOTE | 2020-03-27 09:56 | HMH.ORTHPN ---
Subjective Date: 03/27/20 Time: 09:15 Principal diagnosis: Right DM foot infection Interval history: Patient is a 49-year-old uncontrolled diabetic with peripheral artery disease and history of osteomyelitis with history of multiple foot surgeries. Patient was admitted 03/26/2020 for infection. She was taken to the operating room last night for urgent incision and drainage, ulcer debridement and bone biopsy. Unfortunately the uncontrolled diabetes with A1c of 11.2 combined with her PAD and continuous smoking plus the infection and amount of soft tissue loss patient has an overall poor prognosis. She is resting comfortably at the bedside. She received potassium drip last night. She denies nausea or vomiting, fever chills, shortness of breath or chest pain this morning. PN: Obj Ex Vital signs: Temp Pulse Resp BP Pulse Ox 97.6 F 84 18 83/63 L 97 03/27/20 08:15 03/27/20 08:15 03/27/20 08:00 03/27/20 08:15 03/27/20 08:00 - Constitutional no acute distress - Routine HEENT Exam Head: Present: normocephalic Eye: Present: EOMI ENT: Present: mucous membranes moist - Routine Neck Exam Present: supple - Routine Chest/Breast/Axilla Exam Chest wall: Absent: tenderness - Routine Respiratory Exam Absent: respiratory distress - Routine Cardiovascular Exam Present: RRR - Routine Abdominal Exam Present: soft - Routine Extremities Exam Present: extremity cold to touch, amputation. Absent: normal capillary refill, calf tenderness - Detailed Lower Extremity Exam Foot/Toes: Right amputation, Right erythema, Right wound Top foot image: 1 - Right foot open wound with exposed 4-5th metatarsal. There are gangrenous changes noted to the 5th met base and soft tissue. There is necrotic tissue. Minimal bleeding. Malodor noted. The edema and erythema is improved since surgery, but tissue quality is poor. Skin distally is dusky. Progress Note: A&P (1) Gangrene of right foot Status: Acute (2) Diabetic ulcer of right foot associated with diabetes mellitus due to underlying condition, with fat layer exposed Status: Acute (3) Foot abscess, right Status: Acute (4) Right foot ulcer Status: Acute (5) PAD (peripheral artery disease) Status: Chronic Assessment and Plan for All Diagnoses:: 03/26/20, s/p right foot incision and drainage, foot ulcer debridement, open bone biospy POD #1 The dressing was changed at the bedside. Overnight the skin has turned dusky and there are new necrotic changes noted since surgery. I had a long discussion with the patient about the uncontrolled diabetes an A1c of 11.2. She continues to smoke. She has cut from 2packs to 5 cigarettes daily but continues to smoke against the advice of her PCP Dr. Maldonado, cardiology team and myself. 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 She has chronic non-healing ulcers. Given the significant soft tissue loss and lack of soft tissue to cover the large 9 x 7 cm defect, plus the infection tracking along the plantar midfoot as well as from the fifth metatarsal base up the peroneal tendons to the ankle the overall prognosis is poor. Patient was counseled extensively about further loss of foot or leg. We discussed Chopart amputation in detail but given the PAD and again lack of viable soft tissue, prognosis would be better for a right below-knee amputation. Dr. Silva was consulted. He saw the patient with Podiatry team this morning to evaluate the wound and discuss plan of care. Patient has agreed to the right BKA. She understands she is to follow up in 2 months for left DM foot care. I will transition RLE care to Orthopedics. Please call with any questions or concerns.
[2020-03-27 10:18] LABS: POC Glucose,Bedside 255 (70-110)
--- NOTE | 2020-03-27 10:22 | HMH.PNCARD ---
Subjective Date: 03/27/20 Time: 10:22 Principal diagnosis: Right DM foot infection Interval history: 49-year-old white female in bed in no acute distress. Dr. Silva is in the room and states that in discussion with Dr. Aly it is felt that a BKA is the better option for the best prognosis. Patient has agreed to this and plans are being made for this to happen possibly later today. Patient denies any further chest pain. Again she reiterates her chest pain is associated with eating and not activity. The patient's main caregiver (her daughter) is present in the room and upon further discussion of her cardiomyopathy we discovered that she has not been taking her carvedilol therapy for the last several months. She has only been taking her Entresto. This would explain the drop in her ejection fraction. Exam Vital signs and Labs for Last 24 Hours: Temp Pulse Resp BP Pulse Ox 97.6 F 84 18 83/63 L 97 03/27/20 08:15 03/27/20 08:15 03/27/20 08:00 03/27/20 08:15 03/27/20 08:00 Laboratory Results - last 24 hr 03/26/20 11:10: Serum HCG, Qual Negative 03/26/20 11:20: WBC 17.7 H, RBC 3.88 L, Hgb 11.2 L D, Hct 35.6 L, MCV 91.7, MCH 28.8, MCHC 31.4 L, RDW 13.0, Plt Count 427 H, MPV 7.2 L, Neut % (Auto) 81.1 H, Lymph % (Auto) 11.9, [place] % (Auto) 4.4, Eos % (Auto) 2.0, Baso % (Auto) 0.7, Neut # (Auto) 14.3 H, Lymph # (Auto) 2.1, [place] # (Auto) 0.8, Eos # (Auto) 0.4, Baso # (Auto) 0.1, Total Counted 100, Neutrophils % (Manual) 76, Lymphocytes % (Manual) 14, Monocytes % (Manual) 8, Eosinophils % (Manual) 2, Platelet Estimate Normal, RBC Morphology Normal, ESR 57 H 03/26/20 11:20: Sodium 134 L, Potassium 3.2 L, Chloride 97 L, Carbon Dioxide 29, Anion Gap 11.2, BUN 7, Creatinine 0.90, Estimated Creat Clear 69, Estimated GFR 67, Est GFR ( Amer) 81, Glucose 366 H D, Calcium 9.1, Total Bilirubin 0.6, AST 18, ALT 12, Alkaline Phosphatase 171 H, C-Reactive Protein 171.2 H, Total Protein 7.0, Albumin 3.5, Globulin 3.5 H, Albumin/Globulin Ratio 1.0 L 03/26/20 11:20: SARS-CoV-2 IgG Ab (Rapid) Negative, SARS-CoV-2 IgM Ab (Rapid) Negative 03/26/20 16:31: POC Glucose 255 H 03/26/20 20:46: POC Glucose 272 H 03/27/20 05:14: POC Glucose 187 H 03/27/20 06:20: WBC 15.7 H, RBC 4.01 L, Hgb 11.8 L, Hct 35.9 L, MCV 89.4, MCH 29.3, MCHC 32.8, RDW 13.5, Plt Count 448 H, MPV 7.3 L, Neut % (Auto) 79.9, Lymph % (Auto) 12.0, [place] % (Auto) 4.7, Eos % (Auto) 2.9, Baso % (Auto) 0.5, Neut # (Auto) 12.5 H, Lymph # (Auto) 1.9, [place] # (Auto) 0.7, Eos # (Auto) 0.5 H, Baso # (Auto) 0.1, Total Counted 100, Neutrophils % (Manual) 76, Lymphocytes % (Manual) 17, Monocytes % (Manual) 4, Eosinophils % (Manual) 3, Platelet Estimate Normal, RBC Morphology Normal 03/27/20 06:20: Sodium 136, Potassium 3.8, Chloride 104, Carbon Dioxide 28, Anion Gap 7.8, BUN 8, Creatinine 0.80, Estimated Creat Clear 83, Estimated GFR 77, Est GFR ( Amer) 93, Glucose 171 H D, Calcium 8.7, Total Bilirubin 0.6, AST 31 D, ALT 13, Alkaline Phosphatase 185 H, C-Reactive Protein 133.5 H, Total Protein 6.5, Albumin 3.1 L D, Globulin 3.4 H, Albumin/Globulin Ratio 0.9 L 03/27/20 06:20: ESR > 140 H I & O for Last 24 hours: Intake & Output 03/24/20 03/25/20 03/26/20 03/27/20 11:59 11:59 11:59 11:59 Intake Total 200 / 200 Balance 200 / 200 Weight 125 lb 9 oz 132 lb 12.8 oz - Constitutional no acute distress - *Routine HEENT Exam Head: Present: normocephalic Eye: Present: EOMI, PERRL ENT: Present: mucous membranes moist - *Routine Neck Exam Present: supple. Absent: lymphadenopathy - *Routine Respiratory Exam Present: CTA bilaterally - *Routine Cardiovascular Exam Present: RRR - *Routine Abdominal Exam Present: soft, normoactive bowel sounds. Absent: tenderness - *Routine Extremities Exam Absent: cyanosis, clubbing, edema Comments: Right lower extremity/foot wrapped in bandage. - *Routine Skin Exam Present: warm. Absent: rash - *Routine Neurological Exam Present:
[2020-03-27 11:04] LABS: POC Glucose,Bedside 227 (70-110)
--- NOTE | 2020-03-27 12:57 | HMH.ORTHOCON ---
*Admission Date: 03/26/20 *Reason for consult:: Diabetic, infected foot ulcer, right *History of present illness: Patient is a 49-year-old female with a poorly controlled diabetes and peripheral vascular disease. She is admitted to hospital for management of an infected/gangrenous right foot ulcer. She underwent I&D/wound debridement yesterday by Dr. Aly and noted to have involvement of metatarsal and tarsal bones in the infective process as well as the infection tracking up along the peroneal tendons. She has had longstanding problems with the diabetic foot ulcers. She previously underwent right foot first and fifth toe amputations. She is poorly controlled diabetic with HbA1c of 11.2. She is also a chronic and current smoker. She was also seen by cardiology who think there is no further arterial intervention that would improve circulation to the foot. In the light of findings during surgery as well as patient's medical comorbidities and noncompliance with treatment, both Dr. Aly and Dr. Maldonado are recommending a below-knee amputation. Patient is agreeable for this. I was asked to see the patient today for possible right below-knee amputation. I seen the patient along with Dr. Aly this morning. Patient's daughter is by the bedside at the time of consultation. Patient is also seen by cardiology and cleared for surgery. Please refer to podiatry notes for further details. [facility] History I have reviewed the patient's past medical history: Yes Medical History: Reports:: Cardiomyopathy, Congestive Heart Failure, Coronary Artery Disease, Cerebrovascular Accident, Deep Vein Thrombosis, Diabetes Mellitus Type 1, Diabetes Mellitus Type 2, Hyperlipidemia, Hypertension, Migraine, Peripheral Vascular Disease, Transient Ischemic Attacks (TIA) Denies:: Cancer, Internal Pacemaker, MRSA, Seizures *Have you ever received a pneumonia vaccine?: No *Have you received a flu vaccine this season?: No Other Medical History: Denies: Blood Transfusion Reaction Anesthesia experience/problems:: nac Laterality Cases: Right: Other Other Surgeries: Yes: No Previous Surgery, Cardiac Catheterization, Cholecystectomy, Coronary Stent, Tubal Ligation. 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., pinky toe R foot) Fractures: No - *Social History Last grade of school completed: High school graduate Smoking Status: Current every day smoker Tobacco Type: cigarettes # Packs/Day (cigarettes): 1 #Yrs smoked (if former smoker): 30 Alcohol Intake: never Alcohol Intake Frequency:: a few times a month Substance Use Type: denies use *Occupational Status:: disabled Housing: house Household Members: family *Travel in the last 8 weeks: None Family Hx:: Diabetes, Heart Attack Review of Systems - Review of Systems Review of systems:: pertinent systems reviewed and negative unless documented below - Constitutional Denies chills, Denies fever(s) - Eyes Denies change in vision - *Cardiovascular Denies chest pain, Denies shortness of breath - *Respiratory Denies chest congestion, Denies cough - *Gastrointestinal Denies abdominal pain, Denies change in bowel habits - *Musculoskeletal Reports abnormal walking - Integumentary/Breasts Reports non-healing lesions, Reports skin ulcer - *Neurologic Reports abnormal walking, Reports abnormal hearing, Reports tingling/numbness/burning sensations, Reports radiating pain Meds Home Medications Medication Instructions Recorded Confirmed Type Amitriptyline HCl 100 mg PO HS 10/22/17 03/26/20 History Insulin Lispro [Humalog] 4 unit SQ DAILY 10/22/17 03/26/20 History Aspirin [Aspirin 81mg chewable 81 mg PO DAILY 10/02/18 03/26/20 History tab] Insulin Glargine,Hum.rec.anlog 10 unit SQ HS 10/11/18 03/26/20 History [Lantus Insulin 100units/mL 10mL vial] Cyanocobalamin (Vitamin B-12) 1,000 mcg PO DAILY 09/04/19 03/26/20 History [Vitamin B-12 1000mcg Tablet] Gabapentin 600 mg PO TID
--- NOTE | 2020-03-27 16:53 | P.PN_ITS ---
[facility] Anesthesia Record Part I Intake, IV Amount: 1,000 Estimated blood loss (mL): 25 Urine output (mL): 0 Blood Pressure: 125/79 SaO2: 96 Pulse Rate: 101 Respiratory Rate: 12 Temperature: 100 F Patient is:: Awake, Stable Stable to PACU at:: 16:50
--- NOTE | 2020-03-27 17:37 | HMH.OPNOTE ---
Date of procedure: 03/27/20 Pre-op Diagnosis:: 1. Nonhealing diabetic foot ulcer, right 2. Diabetic foot infection with wet gangrene, right foot 3. Osteomyelitis, right foot 4. Peripheral arterial disease Post-op Diagnosis:: Same Procedure performed:: Below-knee amputation, right Surgeon:: Jos Silva MD ABE TEACHER:: Barrett Devine Anesthesia: LMA Estimated blood loss (mL): 30 Clinical Note:: Patient is a 49-year-old female with a poorly controlled diabetes and peripheral vascular disease. She is admitted to hospital for management of an infected/gangrenous right foot ulcer. She underwent I&D/wound debridement yesterday by Dr. Aly and noted to have involvement of metatarsal and tarsal bones in the infective process as well as the infection tracking up along the peroneal tendons. She has had longstanding problems with the diabetic foot ulcers. She previously underwent right foot first and fifth toe amputations. She is poorly controlled diabetic with HbA1c of 11.2. She is also a chronic and current smoker. She was also seen by cardiology who think there is no further arterial intervention that would improve circulation to the foot. In the light of findings during surgery as well as patient's medical comorbidities and noncompliance with treatment, both Dr. Aly and Dr. Maldonado are recommending a below-knee amputation. Patient is agreeable for this. I was asked to see the patient today for possible right below-knee amputation. I seen the patient along with Dr. Aly this morning. Patient's daughter is by the bedside at the time of consultation. Patient is also seen by cardiology and cleared for surgery. Please refer to orthopedic image consultant podiatry notes for further details. Following assessment on the floor, I had a detailed discussion regarding management options with the patient and her daughter; patient elected to proceed with a right below-knee amputation. I have discussed about the procedure, risks and benefits and alternatives. The patient and her daughter expressed a full understanding and wished to proceed. I told her that we would plan on doing a right below-knee amputation but if the circulation is poor at this level, we would go ahead and perform an above-knee amputation. The complications discussed include but are not limited to infection, bleeding, injury to nerves and blood vessels, wound healing problems, prolonged pain and swelling, tender scar, further infection requiring oral or IV antibiotics, phantom pain, CRPS (complex regional pain syndrome- pain, sensory and temperature changes, swelling and stiffness), incomplete relief of pain, incomplete return of function, DVT, PE, ring sequestrum, likely need for further surgery in future and anesthetic problems including stroke, heart attack, and even . I have discussed how there is a small but real possibility of loss of use of the limb, loss of the limb (proximal amputation) or loss of life itself. I have also explained how additional surgery may be required if there are any complications. We have also discussed the postoperative management, recovery and rehabilitation and the likely need for physical therapy, prosthetic limb fitting, the possibility of stiffness, osteomyelitis, chronic pain and we've also discussed the option of nonsurgical treatment. I strongly advised the patient to completely stop smoking and explained the rationale behind this advice. She indicated that she has cut down her smoking significantly and intends to stop completely in the near future. I have also advised her about healthy lifestyle and healthy eating habits. The patient and her daughter understand and have asked appropriate questions. All their questions were answered and they verbalized a good understanding. Patient desires to proceed with the below knee amputation of the right lower extremity. Patient understood the risks, agreed to proceed with surgery, signed the consent form and no guarantees o
--- NOTE | 2020-03-27 19:00 | PC.NURSE ---
A&OX4. PT HAS TOLERATED RA WELL THROUGHOUT SHIFT. RESPIRATIONS REGULAR AND UNLABORED. LUNG SOUNDS BILATERALLY CLEAR. NO COUGH NOTED. ACTIVE BOWEL SOUNDS HEARD IN ALL 4 QUADRANTS. SOFT AND NONTENDER ABDOMEN. NO BM REPORTED. HAND WEB CONSULTANT EQUAL. +2 PULSES NOTED THROUGHOUT. PT RECEIVED R BKA TODAY AND HAS TOLERATED WELL THUS FAR. NO REPORTS OF PAIN. EDGAR DRAIN IN PLACE. SCUD NOTED TO LLE. IS AT [place]. ENCOURAGED TO USE 10 TIMES EVERY HOUR WHILE AWAKE. PT HAS TOLERATED ANTIBIOTICS WELL TODAY. CALL LIGHT WITHIN REACH. BED IN LOWEST POSITION. VSS. WILL CONTINUE TO MONITOR.
--- NOTE | 2020-03-27 20:17 | HMH.ACPN2 ---
Internal Medicine - PN: Subj *Date: 03/27/20 *Time: 20:17 Interval history: The patient is stable postoperatively though somewhat tearful. She is having some discomfort at the amputation site. Dressing is clean and dry. Exam Vital signs and Labs for Last 24 Hours: Temp Pulse Resp BP Pulse Ox 98.6 F 102 H 12 115/68 95 03/27/20 17:20 03/27/20 17:20 03/27/20 17:20 03/27/20 17:20 03/27/20 17:20 Laboratory Results - last 24 hr 03/26/20 16:31: POC Glucose 255 H 03/26/20 20:46: POC Glucose 272 H 03/27/20 05:14: POC Glucose 187 H 03/27/20 06:20: WBC 15.7 H, RBC 4.01 L, Hgb 11.8 L, Hct 35.9 L, MCV 89.4, MCH 29.3, MCHC 32.8, RDW 13.5, Plt Count 448 H, MPV 7.3 L, Neut % (Auto) 79.9, Lymph % (Auto) 12.0, [place] % (Auto) 4.7, Eos % (Auto) 2.9, Baso % (Auto) 0.5, Neut # (Auto) 12.5 H, Lymph # (Auto) 1.9, [place] # (Auto) 0.7, Eos # (Auto) 0.5 H, Baso # (Auto) 0.1, Total Counted 100, Neutrophils % (Manual) 76, Lymphocytes % (Manual) 17, Monocytes % (Manual) 4, Eosinophils % (Manual) 3, Platelet Estimate Normal, RBC Morphology Normal 03/27/20 06:20: Sodium 136, Potassium 3.8, Chloride 104, Carbon Dioxide 28, Anion Gap 7.8, BUN 8, Creatinine 0.80, Estimated Creat Clear 83, Estimated GFR 77, Est GFR ( Amer) 93, Glucose 171 H D, Calcium 8.7, Total Bilirubin 0.6, AST 31 D, ALT 13, Alkaline Phosphatase 185 H, C-Reactive Protein 133.5 H, Total Protein 6.5, Albumin 3.1 L D, Globulin 3.4 H, Albumin/Globulin Ratio 0.9 L 03/27/20 06:20: ESR > 140 H 03/27/20 10:57: POC Glucose 227 H I & O for Last 24 hours: Intake & Output 03/25/20 03/26/20 03/27/20 03/28/20 11:59 11:59 11:59 11:59 Intake Total 200 / 200 1000 / 1000 Balance 200 / 200 1000 / 1000 Weight 125 lb 9 oz 132 lb 4.438 oz Microbiology Reports for the Last 24 Hours: Microbiology 03/26/20 17:50 Foot,Right Gram Stain - Final 03/26/20 17:50 Foot,Right Surgical Biopsy Culture - Preliminary NO GROWTH AFTER 24 HOURS 03/26/20 17:50 Foot,Right Gram Stain - Final 03/26/20 17:50 Foot,Right Surgical Biopsy Culture - Preliminary NO GROWTH AFTER 24 HOURS 03/26/20 17:50 Foot,Right Gram Stain - Final 03/26/20 17:50 Foot,Right Surgical Biopsy Culture - Preliminary NO GROWTH AFTER 24 HOURS Assessment and Plan (1) Gangrene of right foot Status: Acute Category: Medical Code(s): I96 - Gangrene, not elsewhere classified (2) Diabetic ulcer of right foot associated with diabetes mellitus due to underlying condition, with fat layer exposed Status: Acute Qualifiers: Diabetic foot ulcer location: unspecified part of foot Qualified Code(s): E08.621 - Diabetes mellitus due to underlying condition with foot ulcer; L97.512 - Non-pressure chronic ulcer of other part of right foot with fat layer exposed Category: Medical Code(s): E08.621 - Diabetes mellitus due to underlying condition with foot ulcer; L97.512 - Non-pressure chronic ulcer of other part of right foot with fat layer exposed (3) Foot abscess, right Status: Acute Category: Medical Code(s): L02.611 - Cutaneous abscess of right foot (4) Right foot ulcer Status: Acute Qualifiers: Non-pressure ulcer stage: with fat layer exposed Qualified Code(s): L97.512 - Non-pressure chronic ulcer of other part of right foot with fat layer exposed Category: Medical Code(s): L97.519 - Non-pressure chronic ulcer of other part of right foot with unspecified severity (5) PAD (peripheral artery disease) Status: Chronic Category: Medical Code(s): I73.9 - Peripheral vascular disease, unspecified (6) History of CVA (cerebrovascular accident) Status: Chronic Category: Medical Code(s): Z86.73 - Personal history of transient ischemic attack (TIA), and cerebral infarction without residual deficits (7) Ischemic cardiomyopathy Status: Chronic Category: Medical Code(s): I25.5 - Ischem
[2020-03-27 22:14] LABS: Glucose,Random 616 mg/dL (74-100)
--- NOTE | 2020-03-27 23:26 | PC.NURSE ---
2132 FSBS obtained, glucometer read high, stat glucose order put in at 2144, critical of 616 called at 2210, Joel paged at 2214, returned call at 2218, new orders received (see provider notification) and carried out
[2020-03-28 00:15] VITALS: BP 108/69; PULSE 95; RESP 19; TEMP 36.8; O2SAT 97
[2020-03-28 02:51] LABS: POC Glucose,Bedside 269 (70-110)
[2020-03-28 04:00] VITALS: BP 116/67; PULSE 85; RESP 16; TEMP 36.5; O2SAT 94
[2020-03-28 05:07] VITALS: BMI 21.7
--- NOTE | 2020-03-28 05:30 | PC.NURSE ---
pt has rested well t/o shift, has been up several times to use the bathroom, dressing in place on R BKA, C/D/I, drain with sanguineous drainage noted, has complained of pain one time this shift and was treated per MAY, remains on room air with O2 sats 94-100%, pt was tachy at beginning of shift, has had no complaints of chest pain or SOA
[2020-03-28 06:11] LABS: POC Glucose,Bedside 258 (70-110)
[2020-03-28 07:38] LABS: Basophils % 0.3 % (0.1-2.0); Eosinophils % 0.1 % (0.1-12.0); Hematocrit 34.4 % (37.0-47.0); Hemoglobin 11.3 g/dL (12.2-16.2); Lymphocytes % 13.4 % (10-50); Mean Corpuscular HGB Conc 32.8 g/dL (31.8-35.4); Mean Corpuscular Volume 91.5 fl (81-99); Mean Platelet Volume 7.4 fl (7.4-10.4); Monocytes # 0.7 K/mm3 (0.1-1.0); Monocytes % 4.4 % (1.7-9.3); Neutrophils # 12.2 K/mm3 (1.8-7.8); Neutrophils % 81.8 % (37.0-80.0); Platelet Count 460 K/mm3 (142-424); Red Blood Count 3.76 M/mm3 (4.20-5.40); Red Cell Distribution Width 13.5 % (11.5-17.5)
[2020-03-28 07:42] LABS: Anion Gap 10.6 mEq/L (5-15); Blood Urea Nitrogen 8 mg/dl (7-17); Calcium 8.8 mg/dl (8.4-10.2); Carbon Dioxide 27 mmol/L (22.0-30.0); Chloride 103 mmol/L (98-107); Creatinine Clearance Estimated 72 mL/min (50-200); Estimated Glomerular Filt Rate 67 ml/min (>60); GFR (African American) 81 ML/MIN (>60); Glucose 250 mg/dl (74-100); Potassium 3.6 mmoL/L (3.5-5.1); Sodium 137 mmol/L (136-145)
[2020-03-28 07:53] LABS: MANUAL DIFFERENTIAL MANUAL DIFFERENTIAL (MANUAL DIFF)
[2020-03-28 08:00] VITALS: BP 105/56; PULSE 83; RESP 16; TEMP 36.3; O2SAT 94; O2SAT 95
[2020-03-28 08:18] LABS: Lymphocytes % 18 % (10-50); Monocytes % 3 % (2-9); Neutrophils % 79 % (42-76); Platelet Estimate Slight Increase; RBC Morphology Normal; Total Cells Counted 100
[2020-03-28 11:38] LABS: POC Glucose,Bedside 373 (70-110)
--- NOTE | 2020-03-28 11:48 | HMH.ACPN2 ---
Internal Medicine - PN: Subj *Date: 03/28/20 *Time: 11:48 Interval history: She actually looks healthier this morning. Her color is good. She is talkative and animated. Her lungs are clear and her heart has regular rate and rhythm. Exam Vital signs and Labs for Last 24 Hours: Temp Pulse Resp BP Pulse Ox 97.4 F L 83 16 105/56 L 95 03/28/20 08:00 03/28/20 08:00 03/28/20 08:00 03/28/20 08:00 03/28/20 08:00 Laboratory Results - last 24 hr 03/27/20 21:45: Random Glucose 616 H* 03/28/20 02:11: POC Glucose 269 H 03/28/20 05:55: POC Glucose 258 H 03/28/20 06:51: WBC 15.0 H, RBC 3.76 L, Hgb 11.3 L, Hct 34.4 L, MCV 91.5, MCH 30.0, MCHC 32.8, RDW 13.5, Plt Count 460 H, MPV 7.4, Neut % (Auto) 81.8 H, Lymph % (Auto) 13.4, [place] % (Auto) 4.4, Eos % (Auto) 0.1, Baso % (Auto) 0.3, Neut # (Auto) 12.2 H, Lymph # (Auto) 2.0, [place] # (Auto) 0.7, Eos # (Auto) 0.0, Baso # (Auto) 0.0, Total Counted 100, Neutrophils % (Manual) 79 H, Lymphocytes % (Manual) 18, Monocytes % (Manual) 3, Platelet Estimate Slight increase, RBC Morphology Normal 03/28/20 06:51: Sodium 137, Potassium 3.6, Chloride 103, Carbon Dioxide 27, Anion Gap 10.6, BUN 8, Creatinine 0.90, Estimated Creat Clear 72, Estimated GFR 67, Est GFR ( Amer) 81, Glucose 250 H, Calcium 8.8 03/28/20 11:17: POC Glucose 373 H* Laboratory Tests 03/26/20 03/27/20 03/28/20 11:20 06:20 02:11 WBC 17.7 H 15.7 H Hgb 11.2 L D 11.8 L Potassium POC Glucose 269 H 03/28/20 03/28/2003/28/21 05:55 06:51 06:51 WBC 15.0 H Hgb 11.3 L Potassium 3.6 POC Glucose 258 H 03/28/20 11:17 WBC Hgb Potassium POC Glucose 373 H* I & O for Last 24 hours: Intake & Output 03/25/20 03/26/20 03/27/20 03/28/20 11:59 11:59 11:59 11:59 Intake Total 200 / 200 2925 / 2925 Output Total 35 / 35 Balance 200 / 200 2890 / 2890 Weight 125 lb 9 oz 132 lb 4.438 oz 130 lb 9 oz Microbiology Reports for the Last 24 Hours: Microbiology 03/26/20 17:50 Foot,Right Gram Stain - Final 03/26/20 17:50 Foot,Right Surgical Biopsy Culture - Preliminary Gram Positive Cocci 03/26/20 17:50 Foot,Right Gram Stain - Final 03/26/20 17:50 Foot,Right Surgical Biopsy Culture - Preliminary 03/26/20 17:50 Foot,Right Gram Stain - Final 03/26/20 17:50 Foot,Right Surgical Biopsy Culture - Preliminary Gram Positive Cocci - Constitutional no acute distress - *Routine HEENT Exam Head: Present: normocephalic Eye: Present: PERRL ENT: Present: mucous membranes moist - *Routine Respiratory Exam Present: CTA bilaterally - *Routine Cardiovascular Exam Present: RRR - *Routine Extremities Exam Absent: edema (Dressing in place on her right.) Assessment and Plan (1) Gangrene of right foot Status: Acute Category: Medical Code(s): I96 - Gangrene, not elsewhere classified (2) Diabetic ulcer of right foot associated with diabetes mellitus due to underlying condition, with fat layer exposed Status: Acute Qualifiers: Diabetic foot ulcer location: unspecified part of foot Qualified Code(s): E08.621 - Diabetes mellitus due to underlying condition with foot ulcer; L97.512 - Non-pressure chronic ulcer of other part of right foot with fat layer exposed Category: Medical Code(s): E08.621 - Diabetes mellitus due to underlying condition with foot ulcer; L97.512 - Non-pressure chronic ulcer of other part of right foot with fat layer exposed (3) Foot abscess, right Status: Acute Category: Medical Code(s): L02.611 - Cutaneous abscess of right foot (4) Right foot ulcer Status: Acute Qualifiers: Non-pressure ulcer stage: with fat layer exposed Qualified Code(s): L97.512 - Non-pressure chronic ulcer of other part of right foot with fat layer exposed Category: Medical Code(s): L97.519 - Non-pressure chronic ulcer of other part of right foot with unspecified severity
[2020-03-28 12:00] VITALS: BP 106/50; PULSE 84; RESP 18; TEMP 36.7; O2SAT 96
[2020-03-28 13:23] LABS: Vancomycin,Trough 17.3 ug/mL (5.0-10.0)
--- NOTE | 2020-03-28 14:42 | HMH.PHACONS ---
- Pharmacy Consult Date: 03/28/20 Time: 14:42 Referring provider: DR. ARMENDARIZ Reason for Consult:: VANCOMYCIN TROUGH LEVEL Allergies and ADEs:: Allergies Allergy/AdvReac Type Severity Reaction Status Date / Time No Known Allergies Allergy Verified 03/25/20 14:31 Home Medications:: Home Medications Medication Instructions Recorded Confirmed Type Amitriptyline HCl 100 mg PO HS 10/22/17 03/26/20 History Insulin Lispro [Humalog] 4 unit SQ DAILY 10/22/17 03/26/20 History Aspirin [Aspirin 81mg chewable 81 mg PO DAILY 10/02/18 03/26/20 History tab] Insulin Glargine,Hum.rec.anlog 10 unit SQ HS 10/11/18 03/26/20 History [Lantus Insulin 100units/mL 10mL vial] Cyanocobalamin (Vitamin B-12) 1,000 mcg PO DAILY 09/04/19 03/26/20 History [Vitamin B-12 1000mcg Tablet] Gabapentin 600 mg PO TID 09/04/19 03/26/20 History Furosemide [Furosemide 40MG tAB*] 40 mg PO DAILYP PRN #30 tab 09/06/19 03/26/20 Rx Sacubitril/Valsartan [Entresto] 1 each PO BID 09/27/19 03/26/20 History clindamycin HCl 300 mg capsule 300 mg PO TID 14 Days #42 cap 03/25/20 03/26/20 Rx collagenase clostridium histo. 250 1 applic TOPICAL DAILY PRN #90 g 03/25/20 03/26/20 Rx unit/gram topical ointment Atorvastatin Calcium [Lipitor 10mg 10 mg PO HS 03/26/20 03/26/20 History Tab] Ticagrelor [Brilinta] 90 mg PO BID 03/26/20 03/26/20 History carvediloL [Carvedilol 6.25mg Tab] 6.25 mg PO BID 03/26/20 03/26/20 History Height: 1.65 m Weight: 59.222 kg Laboratory Results:: Laboratory Results - last 24 hr 03/27/20 21:45: Random Glucose 616 H* 03/28/20 02:11: POC Glucose 269 H 03/28/20 05:55: POC Glucose 258 H 03/28/20 06:51: WBC 15.0 H, RBC 3.76 L, Hgb 11.3 L, Hct 34.4 L, MCV 91.5, MCH 30.0, MCHC 32.8, RDW 13.5, Plt Count 460 H, MPV 7.4, Neut % (Auto) 81.8 H, Lymph % (Auto) 13.4, [place] % (Auto) 4.4, Eos % (Auto) 0.1, Baso % (Auto) 0.3, Neut # (Auto) 12.2 H, Lymph # (Auto) 2.0, [place] # (Auto) 0.7, Eos # (Auto) 0.0, Baso # (Auto) 0.0, Total Counted 100, Neutrophils % (Manual) 79 H, Lymphocytes % (Manual) 18, Monocytes % (Manual) 3, Platelet Estimate Slight increase, RBC Morphology Normal 03/28/20 06:51: Sodium 137, Potassium 3.6, Chloride 103, Carbon Dioxide 27, Anion Gap 10.6, BUN 8, Creatinine 0.90, Estimated Creat Clear 72, Estimated GFR 67, Est GFR ( Amer) 81, Glucose 250 H, Calcium 8.8 03/28/20 11:17: POC Glucose 373 H* 03/28/20 12:43: Vancomycin Trough 17.3 H Medical History: Reports:: Cardiomyopathy, Congestive Heart Failure, Coronary Artery Disease, Cerebrovascular Accident, Deep Vein Thrombosis, Diabetes Mellitus Type 1, Diabetes Mellitus Type 2, Hyperlipidemia, Hypertension, Migraine, Peripheral Vascular Disease, Transient Ischemic Attacks (TIA) Denies:: Cancer, Internal Pacemaker, MRSA, Seizures Assessment and Plan (1) Gangrene of right foot Status: Acute Category: Medical Code(s): I96 - Gangrene, not elsewhere classified (2) Diabetic ulcer of right foot associated with diabetes mellitus due to underlying condition, with fat layer exposed Status: Acute Qualifiers: Diabetic foot ulcer location: unspecified part of foot Qualified Code(s): E08.621 - Diabetes mellitus due to underlying condition with foot ulcer; L97.512 - Non-pressure chronic ulcer of other part of right foot with fat layer exposed Category: Medical Code(s): E08.621 - Diabetes mellitus due to underlying condition with foot ulcer; L97.512 - Non-pressure chronic ulcer of other part of right foot with fat layer exposed (3) Foot abscess, right Status: Acute Category: Medical Code(s): L02.611 - Cutaneous abscess of right foot (4) Right foot ulcer Status: Acute Qualifiers: Non-pressure ulcer stage: with fat layer exposed Qualified Code(s): L97.512 - Non-pressure chronic ulcer of other part of right foot with fat layer exposed Category: Medical Code(s): L97.519 - Non-pressure chronic ulcer of other part of right foot with unspecified
--- NOTE | 2020-03-28 14:44 | HMH.ORTHPN ---
Subjective Date: 03/28/20 Time: 11:15 Principal diagnosis: S/p BKA, right Interval history: Patient is status post right below-knee amputation post op day #1. Patient is laying down on the bed and says she is doing well and reports no problems. Patient has some pain and says it's well-controlled with medication. No history of any nausea or vomiting. No history of any cough, chest pain, shortness of breath or palpitations. Patient says she is eating and drinking well. No history of any fevers, chills or rigors. PN: Obj Ex Vital signs: Temp Pulse Resp BP Pulse Ox 98.0 F 84 18 106/50 L 96 03/28/20 12:00 03/28/20 12:00 03/28/20 12:00 03/28/20 12:00 03/28/20 12:00 Narrative: Laboratory Results - last 24 hr 03/27/20 21:45: Random Glucose 616 H* 03/28/20 02:11: POC Glucose 269 H 03/28/20 05:55: POC Glucose 258 H 03/28/20 06:51: WBC 15.0 H, RBC 3.76 L, Hgb 11.3 L, Hct 34.4 L, MCV 91.5, MCH 30.0, MCHC 32.8, RDW 13.5, Plt Count 460 H, MPV 7.4, Neut % (Auto) 81.8 H, Lymph % (Auto) 13.4, [place] % (Auto) 4.4, Eos % (Auto) 0.1, Baso % (Auto) 0.3, Neut # (Auto) 12.2 H, Lymph # (Auto) 2.0, [place] # (Auto) 0.7, Eos # (Auto) 0.0, Baso # (Auto) 0.0, Total Counted 100, Neutrophils % (Manual) 79 H, Lymphocytes % (Manual) 18, Monocytes % (Manual) 3, Platelet Estimate Slight increase, RBC Morphology Normal 03/28/20 06:51: Sodium 137, Potassium 3.6, Chloride 103, Carbon Dioxide 27, Anion Gap 10.6, BUN 8, Creatinine 0.90, Estimated Creat Clear 72, Estimated GFR 67, Est GFR ( Amer) 81, Glucose 250 H, Calcium 8.8 03/28/20 11:17: POC Glucose 373 H* 03/28/20 12:43: Vancomycin Trough 17.3 H Exam General appearance: alert, active, awake, no acute distress ENT: Mucous membranes moist Cardiovascular: regular rate & rhythm, normal peripheral pulses Respiratory: No respiratory distress noted, speaks in full sentences ABD: soft and non tender Neuro: alert, awake, oriented x 3 Psych: Appropriate mood and affect On examination of the right lower extremity, the dressings and the splint are in place; the bandages are clean, dry and intact. No soakage or strikethrough of the dressings noted. Drain is in place and there is less than 10 cc drainage. According to the nursing staff, total drainage since surgery is 35 cc. Progress Note: A&P (1) Gangrene of right foot Status: Acute (2) Diabetic ulcer of right foot associated with diabetes mellitus due to underlying condition, with fat layer exposed Status: Acute (3) Foot abscess, right Status: Acute (4) Right foot ulcer Status: Acute (5) PAD (peripheral artery disease) Status: Chronic (6) History of CVA (cerebrovascular accident) Status: Chronic (7) Ischemic cardiomyopathy Status: Chronic Assessment and Plan for All Diagnoses:: I have reviewed the clinical and operative findings and procedure performed with the patient. Patient is doing well and reports no problems. I would change the dressings and remove the drain tomorrow and possibly patient could be discharged after that. I had a lengthy discussion with the patient regarding cessation of smoking and better diabetic control and healthy eating. I have again stressed the fact that there is no guarantee that the wound is going to heal uneventfully and told her that she may need further procedures including a proximal amputation. This is more likely to happen if she continues to smoke and does not maintain stricter diabetic control, and continues to eat unhealthy diet. All the questions were answered and she verbalized a good understanding. Continue medical management as per Dr. Maldonado.
[2020-03-28 15:52] LABS: POC Glucose,Bedside 344 (70-110)
[2020-03-28 16:00] VITALS: BP 115/64; PULSE 82; RESP 16; TEMP 36.8; O2SAT 95
--- NOTE | 2020-03-28 16:28 | PC.NURSE ---
A&OX4. PT HAS TOLERATED ROOM AIR WELL THROUGHOUT SHIFT. RESPIRATIONS REGULAR AND UNLABORED. LUNG SOUNDS BILATERALLY CLEAR. ACTIVE BOWEL SOUNDS HEARD IN ALL 4 QUADRANTS. SOFT AND NONTENDER ABDOMEN. NO BM THUS FAR. PT VOIDS PER TOILET W 1 PERSON ASSIST AND WHEELCHAIR. +2 PULSES NOTED THROUGHOUT. HAND MARKETING INFORMATION MANAGER EQUAL. DRESSING NOTED TO R BKA. DRESSING CDI. EDGAR DRAIN NOTED W SANGUINEOUS DRAINAGE NOTED. PAIN REPORTED ONCE. NORCO WAS ADMINISTERED AND ON REASSEMENT, PT STATED PAIN WAS TOLERABLE. INCENTIVE SPIROMETER AT BS. ENCOURAGED TO USE 10 TIMES EVERY HOUR WHILE AWAKE. PT HAS HAD SEVERAL VISITORS THROUGHOUT THE DAY. PT HAS RECEIVED 2 ANTIBIOTICS AND TOLERATED WELL. PT IS CURRENTLY SITTING IN BED W CALL LIGHT WITHIN REACH. BED IN LOWEST POSITION. VSS. WILL CONTINUE TO MONITOR.
[2020-03-28 20:00] VITALS: BP 135/70; PULSE 89; RESP 17; TEMP 36.3; O2SAT 96
[2020-03-28 23:28] LABS: POC Glucose,Bedside 283 (70-110)
--- NOTE | 2020-03-29 03:40 | PC.NURSE ---
Pt has slept during this shift. BLT lung sounds clear throughout, bowel sounds present in all 4 quadrants. Pt is on RA, Pt Rt leg dressing CDI. Pt has been medicated per MAR for pain and antibiotics given. Pts EDGAR drain has drained small amounts this shift. Pt voids per commode with assistance of 1. Pt denies headache, SOA, N/V.
[2020-03-29 04:00] VITALS: BP 132/80; PULSE 84; RESP 16; TEMP 36.5; O2SAT 95
[2020-03-29 04:49] VITALS: BMI 22.4
--- NOTE | 2020-03-29 05:18 | PC.NURSE ---
8mL drained from EDGAR drain
[2020-03-29 05:36] LABS: POC Glucose,Bedside 108 (70-110)
[2020-03-29 08:00] VITALS: BP 115/71; PULSE 84; RESP 16; TEMP 36.6; O2SAT 99
--- NOTE | 2020-03-29 11:18 | HMH.ACPN ---
Internal Medicine - PN: Subj *Date: 03/29/20 *Time: 11:18 Exam Vital signs and Labs for Last 24 Hours: Temp Pulse Resp BP Pulse Ox 97.9 F 84 16 115/71 99 03/29/20 08:00 03/29/20 08:00 03/29/20 08:00 03/29/20 08:00 03/29/20 08:00 Laboratory Results - last 24 hr 03/28/20 11:17: POC Glucose 373 H* 03/28/20 12:43: Vancomycin Trough 17.3 H 03/28/20 15:34: POC Glucose 344 H* 03/28/20 21:33: POC Glucose 283 H 03/29/20 05:15: POC Glucose 108 I & O for Last 24 hours: Intake & Output 03/26/20 03/27/20 03/28/20 03/29/20 23:59 23:59 23:59 23:59 Intake Total 200 / 200 1820 / 1820 1645 / 1645 960 / 960 Output Total 8 / 8 Balance 200 / 200 1805 / 1805 1615 / 1615 952 / 952 Weight 56.954 kg 60 kg 59.222 kg 60.98 kg Microbiology Reports for the Last 24 Hours: Microbiology 03/26/20 17:50 Foot,Right Gram Stain - Final 03/26/20 17:50 Foot,Right Surgical Biopsy Culture - Final Enterococcus faecalis 03/26/20 17:50 Foot,Right Gram Stain - Final 03/26/20 17:50 Foot,Right Surgical Biopsy Culture - Final Enterococcus faecalis 03/26/20 17:50 Foot,Right Gram Stain - Final 03/26/20 17:50 Foot,Right Surgical Biopsy Culture - Preliminary Assessment and Plan (1) Gangrene of right foot Status: Acute Category: Medical Code(s): I96 - Gangrene, not elsewhere classified (2) Diabetic ulcer of right foot associated with diabetes mellitus due to underlying condition, with fat layer exposed Status: Acute Qualifiers: Diabetic foot ulcer location: unspecified part of foot Qualified Code(s): E08.621 - Diabetes mellitus due to underlying condition with foot ulcer; L97.512 - Non-pressure chronic ulcer of other part of right foot with fat layer exposed Category: Medical Code(s): E08.621 - Diabetes mellitus due to underlying condition with foot ulcer; L97.512 - Non-pressure chronic ulcer of other part of right foot with fat layer exposed (3) Foot abscess, right Status: Acute Category: Medical Code(s): L02.611 - Cutaneous abscess of right foot (4) Right foot ulcer Status: Acute Qualifiers: Non-pressure ulcer stage: with fat layer exposed Qualified Code(s): L97.512 - Non-pressure chronic ulcer of other part of right foot with fat layer exposed Category: Medical Code(s): L97.519 - Non-pressure chronic ulcer of other part of right foot with unspecified severity (5) PAD (peripheral artery disease) Status: Chronic Category: Medical Code(s): I73.9 - Peripheral vascular disease, unspecified (6) History of CVA (cerebrovascular accident) Status: Chronic Category: Medical Code(s): Z86.73 - Personal history of transient ischemic attack (TIA), and cerebral infarction without residual deficits (7) Ischemic cardiomyopathy Status: Chronic Category: Medical Code(s): I25.5 - Ischemic cardiomyopathy The patient's infection will respond to the chosen ABx?: Yes Is the patient receiving the right drug, dose, and route?: Yes Could a more targeted ABx be ordered?: No (E. FAECALIS IN WOUND CULTURE, SENSITIVE TO VANCOMYCIN)
[2020-03-29 11:30] LABS: POC Glucose,Bedside 313 (70-110)
--- NOTE | 2020-03-29 12:59 | HMH.ACPN2 ---
Internal Medicine - PN: Subj *Date: 03/29/20 *Time: 12:59 Interval history: She is clinically doing well. She may be going home today per Dr. Silva who has not seen her yet. Her blood sugars have improved though the prelunch blood sugar was greater than 300. This morning her fasting sugar was 108. This will be followed up in our office. Exam Vital signs and Labs for Last 24 Hours: Temp Pulse Resp BP Pulse Ox 97.9 F 84 16 115/71 99 03/29/20 08:00 03/29/20 08:00 03/29/20 08:00 03/29/20 08:00 03/29/20 08:00 Laboratory Results - last 24 hr 03/28/20 12:43: Vancomycin Trough 17.3 H 03/28/20 15:34: POC Glucose 344 H* 03/28/20 21:33: POC Glucose 283 H 03/29/20 05:15: POC Glucose 108 03/29/20 11:04: POC Glucose 313 H* I & O for Last 24 hours: Intake & Output 03/27/20 03/28/20 03/29/20 03/30/20 11:59 11:59 11:59 11:59 Intake Total 200 / 200 2925 / 2925 1500 / 1500 Output Total 35 / 35 18 / 18 Balance 200 / 200 2890 / 2890 1482 / 1482 Weight 132 lb 4.438 oz 130 lb 9 oz 134 lb 7 oz Microbiology Reports for the Last 24 Hours: Microbiology 03/26/20 17:50 Foot,Right Gram Stain - Final 03/26/20 17:50 Foot,Right Surgical Biopsy Culture - Final Enterococcus faecalis 03/26/20 17:50 Foot,Right Gram Stain - Final 03/26/20 17:50 Foot,Right Surgical Biopsy Culture - Final Enterococcus faecalis 03/26/20 17:50 Foot,Right Gram Stain - Final 03/26/20 17:50 Foot,Right Surgical Biopsy Culture - Preliminary - Constitutional no acute distress - *Routine HEENT Exam Head: Present: normocephalic Eye: Present: PERRL ENT: Present: mucous membranes moist - *Routine Respiratory Exam Present: CTA bilaterally - *Routine Cardiovascular Exam Present: RRR - *Routine Extremities Exam Present: amputation (Dressing is in place.) Assessment and Plan (1) Gangrene of right foot Status: Acute Category: Medical Code(s): I96 - Gangrene, not elsewhere classified (2) Diabetic ulcer of right foot associated with diabetes mellitus due to underlying condition, with fat layer exposed Status: Acute Qualifiers: Diabetic foot ulcer location: unspecified part of foot Qualified Code(s): E08.621 - Diabetes mellitus due to underlying condition with foot ulcer; L97.512 - Non-pressure chronic ulcer of other part of right foot with fat layer exposed Category: Medical Code(s): E08.621 - Diabetes mellitus due to underlying condition with foot ulcer; L97.512 - Non-pressure chronic ulcer of other part of right foot with fat layer exposed (3) Foot abscess, right Status: Acute Category: Medical Code(s): L02.611 - Cutaneous abscess of right foot (4) Right foot ulcer Status: Acute Qualifiers: Non-pressure ulcer stage: with fat layer exposed Qualified Code(s): L97.512 - Non-pressure chronic ulcer of other part of right foot with fat layer exposed Category: Medical Code(s): L97.519 - Non-pressure chronic ulcer of other part of right foot with unspecified severity (5) PAD (peripheral artery disease) Status: Chronic Category: Medical Code(s): I73.9 - Peripheral vascular disease, unspecified (6) History of CVA (cerebrovascular accident) Status: Chronic Category: Medical Code(s): Z86.73 - Personal history of transient ischemic attack (TIA), and cerebral infarction without residual deficits (7) Ischemic cardiomyopathy Status: Chronic Category: Medical Code(s): I25.5 - Ischemic cardiomyopathy - Assessment and plan all Dx Assessment and Plan for all problems:: Ready for discharge per Dr. Silva.
--- NOTE | 2020-03-29 14:59 | PC.NURSE ---
came to do dressing change on patient. EDGAR drain removed. Drainage less than 10cc present. stated that patient is okay to discharge home from his standpoint, patient should call tomorrow to schedule follow up with his office for one week. Patient is NOT to do her own dressing changes. Elevate extremity on 2 pillows when resting and can use ice packs for swelling . states that from his standpoint patient does not need to be discharged with any antibiotics. Will reach out to per patients request to discuss possible discharge.
--- NOTE | 2020-03-29 15:21 | P.PN_ITS ---
Subjective Date: 03/29/20 Time: 14:30 Principal diagnosis: S/p BKA, right PN: Obj Ex Vital signs: Temp Pulse Resp BP Pulse Ox 97.9 F 84 16 115/71 99 03/29/20 08:00 03/29/20 08:00 03/29/20 08:00 03/29/20 08:00 03/29/20 08:00 Progress Note: A&P (1) Gangrene of right foot Status: Acute (2) Diabetic ulcer of right foot associated with diabetes mellitus due to u nderlying condition, with fat layer exposed Status: Acute (3) Foot abscess, right Status: Acute (4) Right foot ulcer Status: Acute (5) PAD (peripheral artery disease) Status: Chronic (6) History of CVA (cerebrovascular accident) Status: Chronic (7) Ischemic cardiomyopathy Status: Chronic
--- NOTE | 2020-03-29 15:46 | HMH.DCSUM ---
General - General Admission date:: 03/26/20 HPI HPI: This 49-year-old white female has poorly controlled diabetes mellitus. She was seen in podiatry clinic yesterday and found to have severe ulceration of the lateral aspect of the right foot where she has previously had toe amputations. She is admitted at this time per Dr. Aly's request for at least surgical debridement of the wound and likely bone biopsy. The status of the foot is obviously tenuous. As an outpatient yesterday her white blood cell count was elevated. Her potassium is low. She has been started on IV antibiotics and is receiving a run of potassium at this time. Dr. Aly intends to proceed with surgery today. Patient has been seen by cardiology and cleared for surgery. Hospital Course Hospital Course: Following admission to hospital, right foot I&D, debridement and bone biopsy by Dr. Aly on 03/26/2020. During surgery, Dr. Aly noticed more extensive involvement of the foot with infective process as well as tracking down the infection along the peroneal tendons. Therefore, she has recommended a below-knee amputation and Dr. Maldonado concurred with this. Patient agreed to undergo the procedure which was performed on 03/27/2020 and was uneventful. Please refer to appropriate notes for full details. Following surgery patient stayed in the hospital for 2 days and progressed well without any complications. After the below-knee amputation patient had 2 days of hospital stay during which she received IV antibiotics. Patient was discharged to home with self-care on 03/29/2020. The dressings were changed and surgical drain was removed on the second postoperative day. The amputation stump is healthy and surgical incision is clean and healthy. The stump and suture line appears well vascularized. No signs of any erythema, induration or discharge noted. Patient has minimal pain and her pain is well controlled with as needed oral medication. No clinical evidence of DVT noted. Patient was cleared for discharge by Dr. Mallory. On the day of discharge, the patient has been stable. Patient has some pain and says it's well-controlled with medication. No history of any nausea or vomiting. No history of any cough, chest pain, shortness of breath or palpitations. Patient says she is eating and drinking well. No history of any fevers, chills or rigors. Patient's vital signs have been stable throughout and patient is afebrile at the time of discharge. She is being discharged home with family. Objective Vital signs: Temp Pulse Resp BP Pulse Ox 97.9 F 84 16 115/71 99 03/29/20 08:00 03/29/20 08:00 03/29/20 08:00 03/29/20 08:00 03/29/20 08:00 no acute distress - *Routine HEENT Exam Head: Present: normocephalic Eye: Present: EOMI ENT: Present: mucous membranes moist - *Routine Neck Exam Present: supple - *Routine Respiratory Exam Present: CTA bilaterally - *Routine Cardiovascular Exam Present: RRR - *Routine Abdominal Exam Present: soft, normoactive bowel sounds. Absent: tenderness - *Routine Extremities Exam Comments: On examination of the right lower extremity, the dressings and the splint are in place; the bandages are clean, dry and intact. No soakage or strikethrough of the dressings noted. I have changed the dressings today and removed the surgical drain. The incision looks clean and healthy. No erythema or discharge noted. The stump appears healthy and well vascularized. No evidence of any complications noted. I have reapplied sterile dressings and a sugar tong splint. - *Routine Skin Exam Present: warm. Absent: rash - *Routine Neurological Exam Present: alert, oriented X3 - Routine Psychiatric Exam Present: normal affect, cooperative Results Labs on day of discharge: Labs from last 24 hours 03/29/20 03/29/20 03/28/20 11:04 05:15 21:33 POC Glucose 313 H* 108 283 H 03/28/20 15:34 POC Glucose 344 H* Pr
[2020-03-29 16:00] VITALS: BP 117/90; PULSE 92; RESP 20; TEMP 36.4; O2SAT 98
[2020-03-29 17:54] LABS: POC Glucose,Bedside 374 (70-110)
--- NOTE | 2020-03-30 10:34 | SW/DCPLANNER ---
Addendum entered by Marina Graham 03/30/20 14:25: Ruben confirmed that information/order has been received and will be delivered to this patient. Original Note: I have received an order regarding discharge planning for this patient. Patient discharged home yesterday 03/29/20: I spoke with patient via phone. Patient stated that she does need a rolling walker, bedside commode and transfer board at home. Patient information and order will be faxed to [facility].
[2020-03-30 13:09] VITALS: BP 115/68; PULSE 102; TEMP 37
--- NOTE | 2020-03-30 13:09 | P.PN_ITS ---
[facility] Anesthesia Record Part II Discharge Time: 17:20 Destination: Medical Surgical Department PACU nurse assessment reviewed?: Yes Patient Condition:: Good Anesthesia Complications:: None Swallowing reflex intact?: Yes Cyanosis?: No Blood Pressure: 115/68 Pulse Rate: 102 Temperature: 98.6 F Mental Status: Alert & Oriented Pain level:: 0 Nausea and/or vomitting:: None Intake, IV Amount: 0
--- NOTE | 2020-03-30 13:31 | PC.NURSE ---
Patient will need a rolling waler rather than a cane due to gait/mobility issues. Patient will need transfer board due to bka. Patient will need a bedside commode due to bka and distance to bathroom in home.
[2020-03-31 10:25] LABS: POC Glucose,Bedside > 600 (70-110)
== END 2020-03-29 16:57 | disposition home or self-care (01) | DRG 240 ==
PROVIDERS: Orthopaedic Surgery; Physician Assistant; Podiatrist; Admitting Provider Family Medicine; PCP Family Medicine; Visit Provider Family Medicine
PROC: 0HBMXZZ Excision of Right Foot Skin, External Approach (ICD-10-PCS; CPT 11042; principal; 2020-03-26 16:00)
PROC: 0Y6H0Z2 Detachment at Right Lower Leg, Mid, Open Approach (ICD-10-PCS; CPT 27880; principal; 2020-03-27 13:30)
DX: E11.52 Type 2 diabetes mellitus with diabetic peripheral angiopathy with gangrene (principal); I70.268 Atherosclerosis of native arteries of extremities with gangrene, other extremity; L97.416 Non-pressure chronic ulcer of right heel and midfoot with bone involvement without evidence of necrosis; L02.611 Cutaneous abscess of right foot; M86.171 Other acute osteomyelitis, right ankle and foot; E11.621 Type 2 diabetes mellitus with foot ulcer; E11.65 Type 2 diabetes mellitus with hyperglycemia; I25.5 Ischemic cardiomyopathy; I50.9 Heart failure, unspecified; Z95.5 Presence of coronary angioplasty implant and graft; Z72.0 Tobacco use; Z86.73 Personal history of transient ischemic attack (TIA), and cerebral infarction without residual deficits; L97.512 Non-pressure chronic ulcer of other part of right foot with fat layer exposed; I11.0 Hypertensive heart disease with heart failure; Z79.02 Long term (current) use of antithrombotics/antiplatelets; Z79.82 Long term (current) use of aspirin; Z79.4 Long term (current) use of insulin; Z79.899 Other long term (current) drug therapy; E11.69 Type 2 diabetes mellitus with other specified complication; B95.2 Enterococcus as the cause of diseases classified elsewhere; B96.1 Klebsiella pneumoniae [K. pneumoniae] as the cause of diseases classified elsewhere; B96.20 Unspecified Escherichia coli [E. coli] as the cause of diseases classified elsewhere
CPT/HCPCS: 11042; 27880; 36415; 71045; 73630; 73700; 80048; 80053; 80202; 82947; 82962; 83036; 84703; 85007; 85025; 85651; 86140; 86328; 87070; 87077; 87186; 87205; 88305; 88307; 88311; 93005; 93306; 93923; A4649; J2405; J2543; J3370

== ENCOUNTER 2020-04-27 00:01 | Observation (INO) | payer MEDICARE, MEDICAID, SELFPAY ==
[2020-04-27] VITALS (34 sets, daily range): BP systolic 110–168; BP diastolic 63–104; PULSE 74–119; RESP 14–18; TEMP 36.6–36.9; O2SAT 94–100; BMI 21.6
--- NOTE | 2020-04-27 | IR_ITS ---
APPROVED REPORT Patient Location: Inpatient Elevator Inspector: MCKENNA Mendoza RT (R) PROCEDURES Left heart catheterization Left ventriculogram Selective coronary angiogram Drug-eluting stent deployment to the ostial proximal left main artery INDICATION Coronary artery disease, Acute non-ST elevation myocardial infarction, Informed consent was obtained prior to the procedure. COMPLICATIONS NONE Estimated Blood Loss: LESS THAN 10 ML TECHNIQUE One percent lidocaine was used to anesthetize the right groin. The right femoral artery was accessed via the Seldinger technique. A 4-Macedonian sheath was placed in the right femoral artery. The JL-4 and JR-4 catheter was also used to perform left heart catheterization left ventriculogram and selective coronary angiogram. At the end the diagnostic angiogram therapeutic heparin was administered and the 4 Macedonian sheath was exchanged for a 6 Macedonian sheath. An JL 3 guide catheter was placed in the left main artery and a Choice PT wire was placed distally in the LAD. A 3.5 x 12 mm resolute dominique stent was deployed at 24 evita reducing the critical stenosis to 0%. RIDDHI-3 flow was present before and after the procedure. At the end of the procedure the apparatus was removed the sheath was removed the groin was reprepped gloves were changed good hemostasis was achieved using Perclose device patient was transferred to the postop holding in stable addition ANGIOGRAPHIC RESULTS The left main artery Has a proximal complex greater than 80% stenosis The left anterior descending artery Has proximal 10% stenoses with mid vessel stent which is widely patent. Distal to the stent is a concentric 40 to 50% stenosis at a 2 mm LAD. A large first diagonal artery has a mid vessel 60 to 70% stenosis at a 2 mm segment The circumflex artery Nondominant and normal The right coronary artery Large dominant vessel and has a proximal to mid vessel stent which has mild concentric in-stent restenosis. Distally, the stent is widely patent with mild in-stent restenosis just proximal to the PDA. The PDA is a large vessel and has distal 30% stenoses. Posterior lateral branch has an ostial 40% stenosis and a mid vessel 40% stenosis The WORLEY ventriculogram reveals 40% The left ventricular end-diastolic pressure 20 mmHg IMPRESSION Severe proximal left main disease as described above Successful stenting the proximal left main artery severe disease reduced to 0% with 1 drug-eluting stent Coronary disease as described above Reduced ejection fraction Mild elevated LVEDP PLAN 1. Dual antiplatelet therapy 2. Aggressive risk factor modification 3. Cardiac rehabilitation 4. Aggressive control of diabetes 5. Standard therapy for systolic heart failure 6. Avoidance of tobacco products Electronically signed by : Jeff Martinez, 04/27/2020 12:32:51
--- NOTE | 2020-04-27 00:09 | XR_ITS ---
PROCEDURE: XR CHEST 2V CLINICAL HISTORY: cp Chest pain COMPARISON: CR XR CHEST PORTABLE from 09/04/2019 CR XR CHEST PORTABLE PICC PLAC from 09/06/2019 CR XR CHEST PORTABLE from 03/26/2020 FINDINGS: The cardiomediastinal silhouette and pulmonary vascularity are within normal limits. The lungs are clear without infiltrates, suspicious nodules, or pleural effusions. No acute bony abnormalities. IMPRESSION: No acute findings. Dictated by: Sidney Napoles MD 04/27/2020 05:22 Sidney Napoles MD in [place] 04/27/2020 05:22
--- NOTE | 2020-04-27 00:10 | ECG_ITS ---
APPROVED REPORT Exam: Resting ECG HR:114 bpm ECG Measurements Heart Rate 114 AXES HI 142 P QRSd 114 QRS -28 QT 348 T 152 QTc 479 Conclusion Sinus tachycardia Left ventricular hypertrophy with repolarization abnormality Septal infarct, age undetermined Abnormal ECG Electronically signed by : Kennedy Selby, 04/27/2020 06:53:17
--- NOTE | 2020-04-27 00:21 | HMH.EDCP ---
ED Disposition Clinical Impression: Unstable angina pectoris, Elevated troponin, Type 1 diabetes mellitus with hyperglycemia, Tobacco use Leukocytosis Qualifiers: Leukocytosis type: unspecified Qualified Code(s): D72.829 - Elevated white blood cell count, unspecified S/P BKA (below knee amputation) Qualifiers: Laterality: right Qualified Code(s): Z89.511 - Acquired absence of right leg below knee Disposition: Admitted as Observation Condition on Discharge: Fair Referrals: Hugh Maldonado MD [Primary Care Provider] - - Critical Care Critical Care Time: No Attestation: On 04/27/20, the high probability of a clinically significant, sudden or life threatening deterioration of the following system(s) required my full and direct attention, intervention and personal management. The time I documented below is in addition to time spent performing reported procedures but includes the following listed in this critical care notation. Medical Decision Making - Medical Records Medical records reviewed: Yes: I reviewed the patient's medical records. - [place] Inquiry Pt receiving controlled substance: No Vital Signs: 04/27/20 00:01 04/27/20 00:30 04/27/20 01:00 Temperature 98.4 F Temperature Source Oral Pulse Rate [Right] 116 H 115 H 119 H Respiratory Rate 16 17 17 Blood Pressure [Right Arm] 115/84 140/84 157/97 H Blood Pressure Mean [Right Arm] 94 102 117 Blood Pressure Source [Right Arm] Automatic Cuff Automatic Cuff Blood Pressure Position [Right Arm] Supine Supine 02 Sat by Pulse Oximetry 100 98 98 Oxygen Delivery Method Room Air Room Air 04/27/20 01:30 04/27/20 02:00 04/27/20 02:30 Temperature Temperature Source Pulse Rate [Right] 115 H 116 H 117 H Respiratory Rate Blood Pressure [Right Arm] 123/76 121/70 110/73 Blood Pressure Mean [Right Arm] 91 87 85 Blood Pressure Source [Right Arm] Blood Pressure Position [Right Arm] 02 Sat by Pulse Oximetry 98 97 98 Oxygen Delivery Method Room Air 04/27/20 03:00 04/27/20 03:30 Temperature Temperature Source Pulse Rate [Right] 109 H 106 H Respiratory Rate Blood Pressure [Right Arm] 136/77 112/63 Blood Pressure Mean [Right Arm] 96 79 Blood Pressure Source [Right Arm] Blood Pressure Position [Right Arm] 02 Sat by Pulse Oximetry 98 100 Oxygen Delivery Method - Lab Data Lab results reviewed: Yes: I reviewed the patient's lab results. Lab Results 04/27/20 00:02: ESR 67 H 04/27/20 00:02: Sodium 133 L, Potassium 3.5, Chloride 99, Carbon Dioxide 23, Anion Gap 14.5, BUN 8, Creatinine 0.80, Estimated Creat Clear 81, Estimated GFR 77, Est GFR ( Amer) 93, Glucose 526 H*, Calcium 9.6, Total Bilirubin 0.6, Direct Bilirubin 0.4, Conjugated Bilirubin 0.0, Indirect Bilirubin 0.2, Unconjugated Bilirubin 0.2, AST 24, ALT 16, Alkaline Phosphatase 156 H, Troponin I 0.14 H, C-Reactive Protein 33.6 H, Total Protein 8.3 H D, Albumin 4.2, Procalcitonin 0.075 04/27/20 00:02: WBC 20.4 H*, RBC 4.62, Hgb 13.6, Hct 41.9, MCV 90.6, MCH 29.5, MCHC 32.5, RDW 14.0, Plt Count 402, MPV 7.3 L, Neut % (Auto) 86.1 H, Lymph % (Auto) 7.3 L, [place] % (Auto) 5.4, Eos % (Auto) 0.6, Baso % (Auto) 0.5, Neut # (Auto) 17.6 H, Lymph # (Auto) 1.5, [place] # (Auto) 1.1 H, Eos # (Auto) 0.1, Baso # (Auto) 0.1, Total Counted 100, Neutrophils % (Manual) 87 H, Band Neutrophils % 4.0, Lymphocytes % (Manual) 8 L, Monocytes % (Manual) 1 L, Platelet Estimate Normal, RBC Morphology Normal 04/27/20 00:02: NT-Pro-B Natriuret Pep 2090 H 04/27/20 00:02: Hemoglobin A1c 9.2 H D 04/27/20 00:02: Acetone Level None detected 04/27/20 01:26: Urine Color Yellow, Urine Appearance Clear, Urine pH 6.0, Ur Specific [place] 1.010, Urine Protein Negative, Urine Glucose (UA) 3+, Urine Ketones Negative, Urine Blood Negative, Urine Nitrate Negative, Urine Bilirubin Negative, Urine Urobilinogen 0.2, Ur Leukocyte Esterase Negative, Amorphous Sediment Trace 04/27/20 03:11: POC Glucose 384 H* Result diagra
[2020-04-27 00:50] LABS: Basophils # 0.1 K/mm3 (0-0.2); Basophils % 0.5 % (0.1-2.0); Eosinophils # 0.1 K/mm3 (0.0-0.4); Eosinophils % 0.6 % (0.1-12.0); Hematocrit 41.9 % (37.0-47.0); Hemoglobin 13.6 g/dL (12.2-16.2); Lymphocytes # 1.5 K/mm3 (0.7-4.5); Lymphocytes % 7.3 % (10-50); Mean Corpuscular HGB Conc 32.5 g/dL (31.8-35.4); Mean Corpuscular Hemoglobin 29.5 pg (27.0-31.2); Mean Corpuscular Volume 90.6 fl (81-99); Mean Platelet Volume 7.3 fl (7.4-10.4); Monocytes # 1.1 K/mm3 (0.1-1.0); Monocytes % 5.4 % (1.7-9.3); Neutrophils # 17.6 K/mm3 (1.8-7.8); Neutrophils % 86.1 % (37.0-80.0); Platelet Count 402 K/mm3 (142-424); Red Blood Count 4.62 M/mm3 (4.20-5.40)
[2020-04-27 00:59] LABS: MANUAL DIFFERENTIAL MANUAL DIFFERENTIAL (MANUAL DIFF); White Blood Count 20.4 K/mm3 (4.8-10.8)
[2020-04-27 01:00] LABS: Alanine Aminotransferase 16 U/L (12-78); Albumin Level 4.2 g/dl (3.5-5.0); Alkaline Phosphatase 156 U/L (38-126); Anion Gap 14.5 mEq/L (5-15); Aspartate Amino Transferase 24 U/L (14-36); Bilirubin,Direct 0.4 mg/dl (0.0-0.4); Bilirubin,Indirect 0.2 mg/dL (0.0-0.9); Bilirubin,Total 0.6 mg/dl (0.2-1.3); Bilirubin,Unconjugated 0.2 mg/dL (0.0-1.1); Blood Urea Nitrogen 8 mg/dl (7-17); Calcium 9.6 mg/dl (8.4-10.2); Carbon Dioxide 23 mmol/L (22.0-30.0); Chloride 99 mmol/L (98-107); Creatinine Clearance Estimated 81 mL/min (50-200); Estimated Glomerular Filt Rate 77 ml/min (>60); GFR (African American) 93 ML/MIN (>60); Potassium 3.5 mmoL/L (3.5-5.1); Sodium 133 mmol/L (136-145); Total Protein,Serum 8.3 g/dl (6.3-8.2)
[2020-04-27 01:05] LABS: C-Reactive Protein 33.6 mg/L (0-4); Glucose 526 mg/dl (74-100)
[2020-04-27 01:12] LABS: NT Pro Brain Natriuretic Pep. 2090 pg/mL (0-125)
[2020-04-27 01:15] LABS: Troponin I 0.14 ng/ml (0.00-0.034)
--- NOTE | 2020-04-27 01:16 | PC.NURSE ---
notified of 526 glucose
[2020-04-27 01:19] LABS: Procalcitonin 0.075 ng/mL (0.0-2.0)
[2020-04-27 01:21] LABS: Lymphocytes % 8 % (10-50); Monocytes % 1 % (2-9); Neutrophils % 87 % (42-76); Platelet Estimate Normal; RBC Morphology Normal; Total Cells Counted 100
[2020-04-27 01:31] LABS: Microscopic, Urine URINE MICROSCOPIC (MICROSCOPIC)
[2020-04-27 01:34] LABS: Appearance,Urine CLEAR (Clear); Bilirubin,Urine Negative (Negative); Blood, Urine Negative (Negative); Color,Urine YELLOW (Yellow); Glucose,Urine (UA) 3+ (Negative); Ketones,Urine Negative (Negative); Leukocyte Esterase,Urine Negative (Negative); Nitrate,Urine Negative (Negative); Protein,Urine Negative (Negative); Urobilinogen,Urine 0.2 EU/dl (0.2)
[2020-04-27 01:39] LABS: Acetone, Serum (Rapid) None Detected (None Detect)
[2020-04-27 01:40] LABS: Amorphous Sediment,Urine Trace /lpf
[2020-04-27 01:44] LABS: Erythrocyte Sedimentation Rate 67 mm/hr (0-20)
[2020-04-27 02:01] LABS: Hemoglobin A1C 9.2 % (4.0-6.0)
[2020-04-27 03:19] LABS: POC Glucose,Bedside 384 (70-110)
[2020-04-27 03:41] LABS: Troponin I 0.17 ng/ml (0.00-0.034)
--- NOTE | 2020-04-27 04:05 | PC.NURSE ---
CAROLINE BRASWELL on phone with dr galindo @ this time
--- NOTE | 2020-04-27 04:09 | PC.NURSE ---
pt is being admitted and currently boarding in er
--- NOTE | 2020-04-27 04:26 | PC.NURSE ---
notified steward/stewardess third on med surg to let cardiology know of pt consult this am
--- NOTE | 2020-04-27 05:02 | PC.NURSE ---
Pt continues to be an ER Boarder, resting comfortably at this time. Will Continue to monitor.
--- NOTE | 2020-04-27 06:01 | PC.NURSE ---
notified respiratory of echo this am. Marzena to pass on to CV lab
--- NOTE | 2020-04-27 06:02 | PC.NURSE ---
AC fingerstick obtained 10units SSI given per protocol. pt resting quietly in bed. no complaints at this time.
[2020-04-27 06:03] LABS: POC Glucose,Bedside 322 (70-110)
--- NOTE | 2020-04-27 06:27 | PC.NURSE ---
Pt resting comfortably without c/o at this time
[2020-04-27 06:31] LABS: Troponin I 0.43 ng/ml (0.00-0.034)
--- NOTE | 2020-04-27 07:05 | CA_ITS ---
APPROVED REPORT EXAM: Comprehensive 2D, Doppler, and color-flow Echocardiogram Chief Of Field Operations: Juliet Johnson RVT Ht: 5 ft 5 in Wt: 130lbs BSA: 1.65 BP: 112/63 mmHg Indications: CP,ELEVATED TROP,CAD,STENT,CM EF OF 30% ON 03/26/20,SMOKER,DM 2D Dimensions IVSd 1.00 cm F: 0.6-1.0 LVEF (Visual) 35.40 % PWd 0.90 cm F: 0.6 - 1.0 LVDd 4.70 cm F: 3.9 - 5.3 LVDs 3.90 cm F: 2.2 - 3.5 LVOT 2.50 cm (M/F) 1.5-2.5 M-Mode Dimensions LA Diam 3.70 cm (1.9-4.0) Ao Diam 2.70 cm (2.0-3.7) AV Cusp 1.70 cm (1.5-2.6) LV Diastology E/A Ratio 0.7 MED E' 3.04 (< 7 cm/sec) E'/MED E' Ratio 19.30 (>14) LAT E' 6.15 (<10 cm/sec) E/LAT E' Ratio 9.50 (>14) Mitral Valve MV E Max Andrew. 58.60 (40-130 cm/s) MV A Velocity 84.10 (40-130 cm/s) E/A Ratio 0.70 Pulmonary Valve PV Peak Velocity 121.00 (50-150 cm/s) Tricuspid Valve TR P. Velocity 240.00 cm/s RAP Estimate 10.00 mmHg TV Vmax 242.00 (30-100 cm/s) RVSP 33.00 mmHg Left Ventricle Left atrium is mildly enlarged, left ventricle is mildly dilated, severe reduced left ventricular systolic function, visually estimated ejection fraction 30%, there is marked hypokinesis involving mid to distal septum, anterior and anterior apical wall. Diastolic parameters are inconclusive. Right Ventricle Right atrium and right ventricle are normal size and contractility. Aortic Valve Aortic valve is minimally thickened and fibrosed, there is no aortic stenosis or aortic insufficiency. Mitral Valve Mitral valve is grossly normal, there is trace mitral regurgitation. Tricuspid Valve Tricuspid valve is grossly normal, there is trace tricuspid regurgitation. Tricuspid regurgitation jet velocity is inadequate for calculation of the right ventricular systolic pressure. Pulmonic Valve Pulmonic valve is poorly visualized. Great Vessels Aortic root is normal size. Pericardium No significant pericardial effusion noted. Conclusion 1. Mildly enlarged left atrium, mildly dilated left ventricle, severe reduced left ventricular systolic function, visually estimated ejection fraction 30%, with segmental wall motion abnormality described above, diastolic parameters are inconclusive. 2. Trace mitral and tricuspid regurgitation. 3. No significant pericardial effusion noted. Electronically signed by : Christopher Noyola, 04/27/2020 21:24:16
--- NOTE | 2020-04-27 08:41 | PC.NURSE ---
PT UPDATED ON PLAN OF CARE
--- NOTE | 2020-04-27 09:16 | PC.NURSE ---
Massiel Wang at bedside
--- NOTE | 2020-04-27 09:21 | HMH.HP ---
*Admission Date: 04/27/20 *Chief complaint: Chest pain *History of present illness: Ms. Marinelli is a 49-year-old female with a history of stroke, CAD, migraine headaches, type 2 diabetes mellitus with hyperglycemia, hypertension, status post right below the knee amputation in March 2020 who presented to [facility] emergency room this a.m. due to ongoing chest discomfort. She states she has been having intermittent chest pain since her surgery in March. This a.m. it went from the front of her chest to the back and seemed to be more severe. The pain is always associated with shortness of breath. She denies any palpitations and diaphoresis. With previous pain she just tries to not think about it until it goes away. Patient denies any upper respiratory symptoms. She was seen in the office on 04/24/2020 and her A1c at that time was 10.2. With evaluation in the emergency room troponin I was found to be elevated at 0.14. Blood sugar was 526. White blood cell count was 20,400 with a hemoglobin of 13.6 and hematocrit of 41.9. Neutrophils were 86.1%. BNP was 2090. A1c was 9.2. Chest x-ray showed no acute findings. She was given a liter of IV fluids, aspirin, Pepcid IV, 5 units of regular insulin, Ketorolac 30 mg IV, lorazepam 0.5 mg once IV, Reglan 10 mg IV and a nitroglycerin patch. She is to be admitted when bed available with a cardiac consul [facility] History Medical History: Reports:: Cardiomyopathy, Congestive Heart Failure, Coronary Artery Disease, Cerebrovascular Accident, Deep Vein Thrombosis, Diabetes Mellitus Type 1, Diabetes Mellitus Type 2, Hyperlipidemia, Hypertension, Migraine, Peripheral Vascular Disease, Transient Ischemic Attacks (TIA) Denies:: Cancer, Internal Pacemaker, MRSA, Seizures *Have you ever received a pneumonia vaccine?: No *Have you received a flu vaccine this season?: No Other Medical History: Denies: Blood Transfusion Reaction Laterality Cases: Right: Other Other Surgeries: Yes: No Previous Surgery, Cardiac Catheterization, Cholecystectomy, Coronary Stent, Tubal Ligation. 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., pinky toe R foot; and right BKA 2020) Fractures: No - *Social History Smoking Status: Current every day smoker Tobacco Type: cigarettes # Packs/Day (cigarettes): 1 #Yrs smoked (if former smoker): 30 Alcohol Intake: never Alcohol Intake Frequency:: a few times a month Substance Use Type: denies use *Occupational Status:: disabled Housing: house Household Members: family *Travel in the last 8 weeks: None Family Hx:: Diabetes, Heart Attack, Hyperlipidemia, Hypertension Review of Systems - Constitutional Denies fever(s) - Eyes Denies change in vision - ENT Denies ear pain, Denies post nasal drip, Denies sore throat - *Cardiovascular Reports chest pain, Reports shortness of breath, Denies rapid, pounding, or irregular heartbeat - *Respiratory Reports shortness of breath, Reports coughing up blood, Denies chest congestion, Denies cough - *Gastrointestinal Denies abdominal pain, Denies change in stools, Denies vomiting blood, Denies loose stools, Denies nausea, Denies vomiting - *Genitourinary Denies difficulty urinating - *Musculoskeletal Reports other Comments: Since her below the knee amputation she is mainly been performing only transfers. She states she ambulates in her wheelchair. She does plan to get a prosthesis. - *Neurologic Denies dizziness, Denies localized weakness, Denies seizure-like activity Meds Home Medications Medication Instructions Recorded Confirmed Type Amitriptyline HCl 100 mg PO HS 10/22/17 04/27/20 History Insulin Lispro [Humalog] 4 unit SQ DAILY 10/22/17 04/27/20 History Aspirin [Aspirin 81mg chewable 81 mg PO DAILY 10/02/18 04/27/20 History tab] Insulin Glargine,Hum.rec.anlog 10 unit SQ 10/11/18 04/27/20 History [Lantus Insulin 100units/mL 10mL vial] Cyanocobalamin (Vitamin B-12) 1,000 mcg PO DAILY
--- NOTE | 2020-04-27 09:42 | PC.NURSE ---
Danay from cardiology at bedside
--- NOTE | 2020-04-27 09:55 | HMH.CNCARD ---
History of Present Illness Consult date: 04/27/20 Consult reason: chest pain Chief complaint: chest pain Additional Medical History:: 1. Unstable angina (04/27/20) 2. Elevated troponins (04/27/20) 3. Ischemic cardiomyopathy a. EF 30-35% (echo) b. Patient is on Entresto 4. Coronary artery disease a. Previous stenting to the ostium the left main and ostial dominant RCA (10/06) b. Patient is on Brilinta and aspirin 5. Systolic heart failure (04/27/20) a. BNP over 1999. 6. Pulmonary hypertension 7. Peripheral vascular disease 8. Below the knee amputation: Right 9. Type 1 diabetes a. A1C 9.2 b. Uncontrolled. 10. History of CVA 11. Severe mitral regurgitation 12. Severe tricuspid regurgitation 13. Tobacco dependence syndrome a. Smokes 1 ppd and has over 20 years. History of present illness: 49-year-old presented to ED last evening complaining of midsternal chest pain. Patient states since January 2020 she has been experiencing this chest pain that comes and goes. Patient stated the pain was so severe last evening that she was experiencing palpitations. Patient stated increased shortness of breath that accompanies the chest pain. States when the chest pain comes it is a 10 out of 10 on the pain scale. States this chest pain usually resolves with rest after a few seconds. Patient does have known history of coronary artery disease. Patient underwent left heart catheterization on 10/06, which required stenting to the ostium of the left main and ostial dominant RCA. Patient also noted to have ischemic cardiomyopathy with an EF of 30 to 35%. Patient does have elevated LVEDP. Patient is currently taking Entresto. Patient does have history of type 1 diabetes. This is uncontrolled. Last A1c 9.2. Patient does have history of peripheral vascular disease. Patient has known right below the knee amputation. Patient does have history of severe MR and TR. Patient denies chest pain, pressure or tightness at this time. She denies shortness of breath. Patient is resting quietly and comfortably on stretcher. Patient denies palpitations or dizziness. Initial ED work-up was performed. EKG reveals heart rate 114 bpm sinus tachycardia. Lab work revealed WBCs 20.4, BNP 2090, A1c 9.2, creatinine 0.80 with a BUN 0.8. Echocardiogram was obtained and results are pending at this time. Discussed plan of care with Dr. Martinez. Discussed with the patient the benefits and risk of a left heart catheterization due to her unstable angina. Patient verbalized understanding and is agreeable to procedure. Practicing Md Anesthesiologist was notified. Pending on the results of the echocardiogram and left heart catheterization, medication and therapy may recommend changes. Thank you for letting cardiology participate in the care of this patient [facility] History I have reviewed the patient's past medical history: Yes Medical History: Reports:: Cardiomyopathy, Congestive Heart Failure, Coronary Artery Disease, Cerebrovascular Accident, Deep Vein Thrombosis, Diabetes Mellitus Type 1, Diabetes Mellitus Type 2, Hyperlipidemia, Hypertension, Migraine, Peripheral Vascular Disease, Transient Ischemic Attacks (TIA) Denies:: Cancer, Internal Pacemaker, MRSA, Seizures *Have you ever received a pneumonia vaccine?: No *Have you received a flu vaccine this season?: No Other Medical History: Denies: Blood Transfusion Reaction Laterality Cases: Right: Other Other Surgeries: Yes: No Previous Surgery, Cardiac Catheterization, Cholecystectomy, Coronary Stent, Tubal Ligation. 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., pinky toe R foot; and right BKA 1 2020) Fractures: No - *Social History Smoking Status: Current every day smoker Tobacco Type: cigarettes # Packs/Day (cigarettes): 1 #Yrs smoked (if former smoker): 30 Alcohol Intake: never Alcohol Intake Frequency:: a few times a month Substance U
--- NOTE | 2020-04-27 10:00 | PC.NURSE ---
PT UPDATED ON PLAN OF CARE
[2020-04-27 12:35] LABS: POC Glucose,Bedside 127 (70-110)
[2020-04-27 12:43] LABS: CATHL Activated Clotting Time 309 SEC (74-125)
--- NOTE | 2020-04-27 15:15 | SUR.PHASEII ---
Upon transporting patient to laborer heading for procedure this am bruising was noted on left upper arm, patient states she does not know how it got there. Also noted is a silver dollar size scab on right knee . The above skin issues were reported to Isaac Marroquin RN
--- NOTE | 2020-04-27 18:43 | PC.NURSE ---
SHE IS AOX4, ABLE TO MAKE NEEDS KNOWN TO STAFF, SHE HAS TOLERATED RA WITH NO COMPLAINTS, SHE HAS DENIED PAIN SINCE ARRIVAL TO THE FLOOR, SHE HAS MULTIPLE SKIN ISSUES WITH PICTURES TO BE UPLOADED TO CHART, SHE HAS A FEMORAL SIGHT TO THE RIGHT GROIN C/D/I AND KNOW SIGNS OF BLEEDING OR HEMATOMA. NO NEEDS AT THIS TIME WILL CONTINUE TO MONITOR.
[2020-04-27 19:41] LABS: POC Glucose,Bedside 228 (70-110)
--- NOTE | 2020-04-27 20:58 | PC.WOUNDNOTE ---
Wound Location: RIGHT BKA. OPEN AREAA TO RIGHT KNEE
--- NOTE | 2020-04-27 21:02 | PC.WOUNDNOTE ---
Wound Location: EXTENSIVE BRUISING TO LEFT UPPER ARM
[2020-04-27 22:43] LABS: POC Glucose,Bedside 322 (70-110)
[2020-04-28] VITALS (7 sets, daily range): BP systolic 116–136; BP diastolic 60–77; PULSE 75–90; RESP 15–19; TEMP 36.5–36.7; O2SAT 97–99; BMI 22.6
--- NOTE | 2020-04-28 04:56 | PC.NURSE ---
Patient with right femoral cath c/d/i, denies n/v & pain. HR regular normal sinus. Patient resting in bed with eyes closed, call light within reach bed at lowest level for safety.
[2020-04-28 06:11] LABS: POC Glucose,Bedside 235 (70-110)
--- NOTE | 2020-04-28 08:06 | P.CONPHA_ITS ---
[facility] VTE Monitoring - Patient Demographics Admission date: 04/28/20 Report Date: 04/28/20 Time: 08:06 Allergies/Adverse Reactions: Patient Allergies No Known Allergies Allergy (Verified 04/27/20 00:32) Height: 1.65 m Weight: 61.5 kg Patient Problems: Current Active Problems Type 1 diabetes mellitus with hyperglycemia (Chronic) Leukocytosis (Acute) Unstable angina pectoris (Acute) Elevated troponin (Acute) S/P BKA (below knee amputation) (Chronic) Tobacco use (Chronic) - VTE Risk Labs: VTE Related Lab Results Hgb 13.6 g/dL (12.2-16.2) 04/27/20 00:02 Hct 41.9 % (37.0-47.0) 04/27/20 00:02 Plt Count 402 K/mm3 (142-424) 04/27/20 00:02 BUN 8 mg/dl (7-17) 04/27/20 00:02 Creatinine 0.80 mg/dl (0.52-1.04) 04/27/20 00:02 Estimated Creat Clear 81 mL/min (50-200) 04/27/20 00:02 Was VTE Risk Assessment Performed: Yes VTE Score: 3 VTE Risk Level: Low Risk Clinical Trial Participant: No - Prophylaxis VTE Prophylaxis Ordered?: Yes Types of VTE Prophylaxis: TEDS Knee High
--- NOTE | 2020-04-28 08:38 | HMH.ACPN2 ---
Internal Medicine - PN: Subj *Date: 04/28/20 *Time: 08:38 Interval history: Patient states she feels wonderful and wants to go home. Any further chest pain and shortness of breath. She has been eating without problems. On 04/27/2020 patient had a cardiac cathWith the following results: IMPRESSION Severe proximal left main disease as described above Successful stenting the proximal left main artery severe disease reduced to 0% with 1 drug-eluting stent Coronary disease as described above Reduced ejection fraction Mild elevated LVEDP PLAN 1. Dual antiplatelet therapy 2. Aggressive risk factor modification 3. Cardiac rehabilitation 4. Aggressive control of diabetes 5. Standard therapy for systolic heart failure 6. Avoidance of tobacco products Exam Vital signs and Labs for Last 24 Hours: Temp Pulse Resp BP Pulse Ox 97.7 F 80 18 136/77 99 04/28/20 08:00 04/28/20 08:00 04/28/20 08:00 04/28/20 08:00 04/28/20 08:00 Laboratory Results - last 24 hr 04/27/20 12:17: Activated Clotting Time 309 H* 04/27/20 12:28: POC Glucose 127 H 04/27/20 18:13: POC Glucose 228 H 04/27/20 22:15: POC Glucose 322 H* 04/28/20 06:05: POC Glucose 235 H I & O for Last 24 hours: Intake & Output 04/25/20 04/26/20 04/27/20 04/28/20 11:59 11:59 11:59 11:59 Intake Total 720 / 720 Balance 720 / 720 Weight 130 lb 135 lb 9.349 oz - Constitutional no acute distress Comments: Appears comfortable lying in the bed. - *Routine Respiratory Exam Present: CTA bilaterally (Anteriorly and posteriorly) - *Routine Cardiovascular Exam Present: RRR - *Routine Abdominal Exam Present: soft, normoactive bowel sounds. Absent: tenderness, distended - *Routine Extremities Exam Present: edema (Trace in left ankle area. Right stump appears clean and healing) - *Routine Neurological Exam Present: alert, oriented X3 Assessment and Plan (1) Elevated troponin Status: Acute Category: Medical Code(s): R77.8 - Other specified abnormalities of plasma proteins (2) Leukocytosis Status: Acute Qualifiers: Leukocytosis type: unspecified Qualified Code(s): D72.829 - Elevated white blood cell count, unspecified Category: Medical Code(s): D72.829 - Elevated white blood cell count, unspecified (3) S/P BKA (below knee amputation) Status: Chronic Qualifiers: Laterality: right Qualified Code(s): Z89.511 - Acquired absence of right leg below knee Category: Surgical Code(s): Z89.519 - Acquired absence of unspecified leg below knee (4) Tobacco use Status: Chronic Category: Social Hx Code(s): Z72.0 - Tobacco use (5) Type 1 diabetes mellitus with hyperglycemia Status: Chronic Category: Medical Code(s): E10.65 - Type 1 diabetes mellitus with hyperglycemia (6) Unstable angina pectoris Status: Acute Category: Medical Code(s): I20.0 - Unstable angina (7) Stented coronary artery Status: Acute Category: Surgical Code(s): Z95.5 - Presence of coronary angioplasty implant and graft - Assessment and plan all Dx Assessment and Plan for all problems:: Patient can be discharged as per cardiology
--- NOTE | 2020-04-28 09:45 | HMH.PNCARD ---
Subjective Date: 04/28/20 Time: 09:00 Principal diagnosis: Chest pain Interval history: 49-year-old female admitted to [facility] with chest pain on 04/27/20. Patient states overall she is feeling much better. Patient did undergo left heart catheterization yesterday which revealed severe proximal left main disease which required stenting to that left main. Groin access was obtained. Right groin noted with no drainage or redness noted at the cath site. Patient denies chest pain, pressure or tightness. Denies shortness of breath. No swelling noted of the lower extremity. Patient denies palpitations or dizziness. States she is ready to go home. Echocardiogram revealed EF of 30%. Patient is not a candidate for a LifeVest. Discussed with patient the importance of taking her medications on a regular basis and as prescribed. Patient verbalized understanding. Echo: Conclusion 1. Mildly enlarged left atrium, mildly dilated left ventricle, severe reduced left ventricular systolic function, visually estimated ejection fraction 30%, with segmental wall motion abnormality described above, diastolic parameters are inconclusive. 2. Trace mitral and tricuspid regurgitation. 3. No significant pericardial effusion noted. LHC: IMPRESSION Severe proximal left main disease as described above Successful stenting the proximal left main artery severe disease reduced to 0% with 1 drug-eluting stent Coronary disease as described above Reduced ejection fraction Mild elevated LVEDP PLAN 1. Dual antiplatelet therapy 2. Aggressive risk factor modification 3. Cardiac rehabilitation 4. Aggressive control of diabetes 5. Standard therapy for systolic heart failure 6. Avoidance of tobacco products Patient is on appropriate medication for systolic heart failure. Patient is to continue her home medications. May need to adjust medications once patient is at a follow-up with cardiology in 1 week. Patient to follow-up with cardiology in 1 week. Thank you for letting cardiology participate in the care of this patient. Exam Vital signs and Labs for Last 24 Hours: Temp Pulse Resp BP Pulse Ox 97.7 F 80 18 136/77 99 04/28/20 08:00 04/28/20 08:00 04/28/20 08:00 04/28/20 08:00 04/28/20 08:00 Laboratory Results - last 24 hr 04/27/20 12:17: Activated Clotting Time 309 H* 04/27/20 12:28: POC Glucose 127 H 04/27/20 18:13: POC Glucose 228 H 04/27/20 22:15: POC Glucose 322 H* 04/28/20 06:05: POC Glucose 235 H I & O for Last 24 hours: Intake & Output 04/25/20 04/26/20 04/27/20 04/28/20 23:59 23:59 23:59 23:59 Intake Total 360 / 360 360 / 360 Balance 360 / 360 360 / 360 Weight 130 lb 135 lb 9.349 oz - Constitutional no acute distress, thin, cooperative - *Routine HEENT Exam Head: Present: normocephalic ENT: Present: mucous membranes moist - *Routine Neck Exam Present: supple, full ROM, normal carotid upstroke. Absent: JVD, carotid bruit, lymphadenopathy - Routine Chest/Breast/Axilla Exam Chest wall: Present: tenderness. Absent: mass, pacemaker - *Routine Respiratory Exam Present: accessory muscle use, CTA bilaterally. Absent: rales, wheezes - *Routine Cardiovascular Exam Present: RRR, Normal S1, Normal S2. Absent: murmur, click, JVD - *Routine Abdominal Exam Present: soft, normoactive bowel sounds. Absent: distended, firm - *Routine Extremities Exam Present: full ROM, pulses intact, normal capillary refill, amputation. Absent: edema - *Routine Skin Exam Present: intact, dry, warm. Absent: lesions - *Routine Neurological Exam Present: alert, oriented X3, CN II-XII intact, moving all extremities, normal speech - Routine Psychiatric Exam Present: normal affect, normal thought process, cooperative Progress Note: A&P (1) Elevated troponin Start date: 04/28/20 Status: Acute (2) Leukocytosis Status: Acute (3) S/P BKA (below knee amputation) Status: Chronic (4) Tobacco use
[2020-04-28 21:57] LABS: POC Glucose,Bedside 345 (70-110)
--- NOTE | 2020-04-29 10:59 | HMH.DCSUM ---
General - General Admission date:: 04/27/20 Discharge date: 04/28/20 HPI HPI: Ms. Marinelli is a 49-year-old female with a history of stroke, CAD, migraine headaches, type 2 diabetes mellitus with hyperglycemia, hypertension, status post right below the knee amputation in March 2020 who presented to [facility] emergency room this a.m. due to ongoing chest discomfort. She states she has been having intermittent chest pain since her surgery in March. This a.m. it went from the front of her chest to the back and seemed to be more severe. The pain is always associated with shortness of breath. She denies any palpitations and diaphoresis. With previous pain she just tries to not think about it until it goes away. Patient denies any upper respiratory symptoms. She was seen in the office on 04/24/2020 and her A1c at that time was 10.2. With evaluation in the emergency room troponin I was found to be elevated at 0.14. Blood sugar was 526. White blood cell count was 20,400 with a hemoglobin of 13.6 and hematocrit of 41.9. Neutrophils were 86.1%. BNP was 2090. A1c was 9.2. Chest x-ray showed no acute findings. She was given a liter of IV fluids, aspirin, Pepcid IV, 5 units of regular insulin, Ketorolac 30 mg IV, lorazepam 0.5 mg once IV, Reglan 10 mg IV and a nitroglycerin patch. She is to be admitted when bed available with a cardiac consult. Hospital Course Hospital Course: The patient was admitted and her troponin I was elevated. Cardiology was consulted. She had a chest x-ray showing nothing acute. Cardiology saw the patient and ordered an echo as well as a heart cath. Her heart cath showed severe proximal left main disease and this was successfully stented with 1 stent. Her echo showed an EF of 30%. By 04/28/2020, the patient felt great and wanted to go home. She denied any further chest pain or shortness of breath. Cardiology felt she could be discharged home and will need to follow-up in their office in 1 week. Objective Vital signs: Temp Pulse Resp BP Pulse Ox 97.8 F 80 19 120/60 97 04/28/20 15:29 04/28/20 16:00 04/28/20 15:29 04/28/20 15:29 04/28/20 15:29 Narrative: - Constitutional no acute distress Comments: Awakened for exam. She remains in the ER on the stretcher. - *Routine HEENT Exam Head: Present: normocephalic, atraumatic Eye: Present: PERRL. Absent: conjunctival icterus, scleral injection ENT: Present: mucous membranes moist, oropharynx clear - *Routine Neck Exam Present: supple. Absent: carotid bruit, lymphadenopathy, thyromegaly - Routine Chest/Breast/Axilla Exam Chest wall: Absent: tenderness - *Routine Respiratory Exam Present: CTA bilaterally (Anteriorly and posteriorly) - *Routine Cardiovascular Exam Present: RRR - *Routine Abdominal Exam Present: soft, normoactive bowel sounds. Absent: tenderness - *Routine Extremities Exam Absent: edema Comments: Right below the knee amputation surgical site appears well-healed. - *Routine Neurological Exam Present: alert, oriented X3 Results Labs on day of discharge: Labs from last 24 hours 04/28/20 13:08 POC Glucose 345 H* DS: Diagnosis - Discharge Diagnosis (1) Elevated troponin Status: Acute (2) Leukocytosis Status: Acute (3) S/P BKA (below knee amputation) Status: Chronic (4) Tobacco use Status: Chronic (5) Type 1 diabetes mellitus with hyperglycemia Status: Chronic (6) Unstable angina pectoris Status: Acute (7) Stented coronary artery Status: Acute Discharge Plan - Patient Discharge Instructions ACTIVITY: Limited activity DIET: diabetic diet Patient Instructions: Type 2 Diabetes - Follow up Plan Follow up with: Hugh Maldonado MD [Primary Care Provider] - 1 week (PLEASE CALL FOR FOLLW UP MARGARITO.) Jeff Martinez MD [Staff Physician] - (PLEASE CALL FOR FOLLOW UP MARGARITO.) Disposition: Home, Self-Retirement Medication
--- NOTE | 2020-04-29 12:04 | HMH.PHACLD ---
Cristina Marinelli has received discharge medication counseling on the following medications: CONTINUED MEDICATIONS: ASPIRIN, BRILINTA, LIPITOR, ENTRESTO, CARVEDILOL PATIENT WAS DISCHARGED AFTER HOURS.
== END 2020-04-28 19:00 | disposition home or self-care (01) ==
LOC: ER 00:09 → 2ND 04:10
PROVIDERS: Internal Medicine; Admitting Provider Family Medicine; Emergency Provider Emergency Medicine; PCP Family Medicine; Visit Provider Family Medicine
DX: I25.118 Atherosclerotic heart disease of native coronary artery with other forms of angina pectoris (principal); Z72.0 Tobacco use; E10.65 Type 1 diabetes mellitus with hyperglycemia; Z89.511 Acquired absence of right leg below knee; Z79.4 Long term (current) use of insulin; Z79.899 Other long term (current) drug therapy; I10 Essential (primary) hypertension; Z79.01 Long term (current) use of anticoagulants; Z79.82 Long term (current) use of aspirin; R06.9 Unspecified abnormalities of breathing
CPT/HCPCS: 71046; 80048; 80076; 81001; 82009; 82962; 83036; 83880; 84145; 84484; 85007; 85025; 85347; 85651; 86140; 92928; 93005; 93306; 93458; 96365; 96372; 96375; 99152; 99153; 99284; C1725; C1760; C1769; C1876; C9600; G0378; J1644; Q9967; U0003

== ENCOUNTER → 2020-09-23 08:51 | Outpatient (CLI) | payer MEDICARE, MEDICAID, SELFPAY | PROVIDERS: PCP Family Medicine; Visit Provider Urology | DX: I25.5 Ischemic cardiomyopathy (principal) | CPT/HCPCS: 93308 ==

== ENCOUNTER → 2020-10-06 13:11 | Outpatient (CLI) | payer MEDICARE, MEDICAID, SELFPAY ==
--- NOTE | 2020-10-06 13:11 | NM_ITS ---
APPROVED REPORT NM Technologist: MCKENNA Veras RT(R)(N) Pretest Chest Pain No chest Pain Procedure The above named patient was injected with 26.1 mCi of Tc99m tagged red blood cells. The above named patient was injected with 3.0 mg of cold stannous pyrophosphate. After 20.0 min, the patient was injected with 26.1 mCi of Technecium-99m pertechnetate. Gated imaging was then performed in left anterior oblique projections. Impression 1. Resting MUGA scan showed an ejection fraction of 35%, left ventricle is globally hypokinetic. Conclusion 1. Resting MUGA scan showed an ejection fraction of 35%, left ventricle is globally hypokinetic. Electronically signed by : Christopher Noyola, 10/06/2020 18:28:31
== END ==
PROVIDERS: PCP Family Medicine; Visit Provider Urology
DX: I20.0 Unstable angina (principal)
CPT/HCPCS: 78473; A9512

== ENCOUNTER → 2020-10-20 12:57 | Outpatient (CLI) | payer MEDICARE, MEDICAID, SELFPAY ==
[2020-10-20 13:21] LABS: Basophils # 0.4 K/mm3 (0-0.2); Basophils % 2.4 % (0.1-2.0); Eosinophils # 0.3 K/mm3 (0.0-0.4); Eosinophils % 2.1 % (0.1-12.0); Hemoglobin 13.9 g/dL (12.2-16.2); Lymphocytes # 2.8 K/mm3 (0.7-4.5); Lymphocytes % 17.8 % (10-50); Mean Corpuscular HGB Conc 32.4 g/dL (31.8-35.4); Mean Corpuscular Hemoglobin 29.6 pg (27.0-31.2); Mean Corpuscular Volume 91.3 fl (81-99); Mean Platelet Volume 13.3 fl (7.4-10.4); Monocytes # 0.8 K/mm3 (0.1-1.0); Monocytes % 4.9 % (1.7-9.3); Neutrophils # 11.2 K/mm3 (1.8-7.8); Neutrophils % 72.8 % (37.0-80.0); Platelet Count 389 K/mm3 (142-424); Red Blood Count 4.71 M/mm3 (4.20-5.40); Red Cell Distribution Width 16.5 % (11.5-17.5); White Blood Count 15.4 K/mm3 (4.8-10.8)
[2020-10-20 13:25] LABS: MANUAL DIFFERENTIAL MANUAL DIFFERENTIAL (MANUAL DIFF)
[2020-10-20 14:15] LABS: Chloride 100 mmol/L (98-107); Sodium 133 mmol/L (136-145)
[2020-10-20 14:16] LABS: Potassium 4.3 mmoL/L (3.5-5.1)
[2020-10-20 14:18] LABS: Blood Urea Nitrogen 13 mg/dl (7-17); Estimated Glomerular Filt Rate 89 ml/min (>60); GFR (African American) 108 ML/MIN (>60)
[2020-10-20 14:19] LABS: Anion Gap 16.3 mEq/L (5-15); Calcium 9.3 mg/dl (8.4-10.2); Carbon Dioxide 21 mmol/L (22.0-30.0); Glucose 363 mg/dl (74-100)
[2020-10-20 15:06] LABS: Eosinophils % 3 % (0-3); Lymphocytes % 20 % (10-50); Monocytes % 3 % (2-9); Neutrophils % 72 % (42-76); Total Cells Counted 100
[2020-10-20 15:08] LABS: Anisocytosis 1+; Platelet Estimate Normal
[2020-10-22 10:37] LABS: Estradiol 72.1 pg/mL (.); FSH 21.3 mIU/mL (.); LH 26.6 mIU/mL (.)
== END ==
PROVIDERS: Nurse Practitioner Obstetrics & Gynecology; Visit Provider Internal Medicine
DX: N93.9 Abnormal uterine and vaginal bleeding, unspecified (principal); E78.5 Hyperlipidemia, unspecified; I07.1 Rheumatic tricuspid insufficiency; I25.10 Atherosclerotic heart disease of native coronary artery without angina pectoris; I25.5 Ischemic cardiomyopathy; I34.0 Nonrheumatic mitral (valve) insufficiency; Z95.5 Presence of coronary angioplasty implant and graft; Z01.812 Encounter for preprocedural laboratory examination; Z11.52 Encounter for screening for COVID-19; I50.21 Acute systolic (congestive) heart failure; I11.0 Hypertensive heart disease with heart failure
CPT/HCPCS: 36415; 80048; 82670; 83001; 83002; 85007; 85025; U0003

== ENCOUNTER 2020-10-22 09:41 | Day surgery (SDC) | payer MEDICARE, MEDICAID, SELFPAY ==
--- NOTE | 2020-10-22 07:08 | IR_ITS ---
APPROVED REPORT Patient Location: Outpatient [place] Turner: MCKENNA Mendoza RT (R) PROCEDURES 1. Pocket formation for AICD. 2. Placement of atrial sensing and pacing coil into the right atrial appendage. 3. Placement of a ventricular sensing, pacing and shocking coil in the right ventricular apex. 4. Permanent AICD placement. INDICATION Systolic Congestive Heart Failure, ejection < 35%, [place] Heart Assoication Class 3 Congestive Heart Failure Informed consent was obtained prior to the procedure. COMPLICATIONS None Estimated Blood Loss: Less than 10 ML TECHNIQUE 1% Lidocaine with epinephrine used to anesthetized the left anterior aspect of the chest. Scalpel was used to make the initial cutaneous incision while electrocautery was used to dissect down tinto the fascia. The fascia was lifted off the pectoralis muscle and digitally manipulated creating a pocket for the defibrillator. The patient was then placed in Trendelenburg position and the subclavian vein was accessed 2 times via the Selinger technique. A 8 Ghanaian sheath was placed under fluoroscopic guidance into the subclavian vein. The dilator was removed from the sheath. Using fluoroscopic guidance, the ventricular lead was placed into the right ventricular apex, screwed and secured into place. Electronic interrogation proved acceptable thresholds and voltage within the lead. Using 3-0 silk, the ventricular lead was then secured into place and sheath peeled away. A 6 Ghanaian fresh sheath and dilator was placed over the existing wire. Using fluoroscopic guidance, the atrial lead was then placed into the right atrial appendage and screwed and secured in place. Electrical interrogation demonstrated acceptable thresholds and voltage number. The atrial lead was then secured into place using 3-0 silk and sheath peeled away. 1 gram of Ancef was used to flush the pocket. All 3 leads were connected to generator and tested via computer. The defibrillator then secured to the fascia. Monocryl was used to close the subcutaneous layers while aggie were used to close the cutaneous layer. A pressure dressing was placed and the patient was transferred to the postop holding area in stable condition for postoperative care. INTERROGATION Generator Model number: Perciva ICD DF4-DR D413 Generator Serial number: [id number] Atrial lead model number: Ingevity +IS-1 Bi Positive Fix RA/RV 45 cm 7840 Atrial lead serial number: [id number] P-wave: 3.5 mV Impedence: 600 Ohms Threshold: 1.2V@0.4ms Current: 2.0 mA Right Ventricular lead model number: Rozinaacluiz 4-Front Active Fix Dual Coil 59 cm 0675 Right Ventricular lead serial number: [id number] R-wave: 18.0 mV Impedence: 1200 Ohms Threshold: 0.5V@0.4ms Current: 0.5 mA Pacing Parameters: Mode: DDD Base/Max Track: 60ppm/130ppm ICD Rate Cutoffs: VT-1: 150 bpm 10.0 seconds VT-2: 170 bpm 10.0 seconds VF: 200 bpm 5.0 seconds Quick Convert 41Jx8 ATP, 41JX6 No diaphragmatic stimulation at 10 volts. IMPRESSION 1. Successful Pocket formation for AICD. 2. Successful Placement of atrial sensing and pacing coil into the right atrial appendage. 3. Successful Placement of a ventricular sensing, pacing and shocking coil in the right ventricular apex. 4. Successful Permanent AICD placement. PLAN 1. Post Op Wound Care Electronically signed by : Jeff Martinez MD 10/26/2020 14:44:26
[2020-10-22 09:47] VITALS: BMI 22.9
[2020-10-22 10:27] VITALS: BP 119/80; PULSE 93; RESP 16; TEMP 36.8; O2SAT 96
[2020-10-22 10:35] VITALS: PULSE 93
--- NOTE | 2020-10-22 10:44 | HMH.ANESCL ---
[facility] Anesthesia Checklist - Patient Identification Patient Identification: Arm Band - Structural Data Admitted From: Home Planned Operative Procedure/s: AICD Consent for Planned Operative Procedure(s) Verified: Yes - NPO Status Verified Time NPO: 00:00 - Additional verifications Anesthesia Reactions: No Hx Blood Transfusions: No Blood Transfusion Reaction: No - Airway Assessment C-Spine Mobility Assessed: Yes TMJ Mobility Assessed: Yes Dentition: Edentulous - Neurological Assessment Level of Consciousness: Awake Hx Seizures: No Numbness or tingling in extremities: No - Anesthesia Plan Anesthesia Risk discussed: Yes Anesthesia Plan: Verified ASA Class: IV Anesthesia Type: MAC [facility] History Medical History: Reports:: Arrhythmia, Atherosclerotic Heart Disease, Cardiomyopathy, Congestive Heart Failure, Coronary Artery Disease, Cerebrovascular Accident, Deep Vein Thrombosis, Diabetes Mellitus Type 1, Diabetes Mellitus Type 2, Hyperlipidemia, Hypertension, Migraine, Myocardial Infarction, Peripheral Artery Disease, Peripheral Vascular Disease, Transient Ischemic Attacks (TIA) Denies:: Cancer, Internal Pacemaker, MRSA, Seizures *Have you ever received a pneumonia vaccine?: No *Have you received a flu vaccine this season?: No Other Medical History: Denies: Blood Transfusion Reaction Anesthesia experience/problems:: None Laterality Cases: Right: Other Other Surgeries: Yes: No Previous Surgery, Angiogram, Angioplasty, Cardiac Catheterization, Cholecystectomy, Coronary Stent, Tubal Ligation. 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., pinky toe R foot; and right BKA 1 2020) Fractures: No - *Social History Last grade of school completed: High school graduate Smoking Status: Current every day smoker Tobacco Type: cigarettes # Packs/Day (cigarettes): 1 #Yrs smoked (if former smoker): 30 Alcohol Intake: never Alcohol Intake Frequency:: a few times a month Substance Use Type: denies use *Occupational Status:: unemployed Housing: house Household Members: family, children *Travel in the last 8 weeks: None Family Hx:: Diabetes, Heart Attack, Hyperlipidemia, Hypertension
[2020-10-22 11:12] LABS: HCG Qualitative, Serum Negative (Negative)
[2020-10-22 12:37] VITALS: BP 98/60; PULSE 94; RESP 20; O2SAT 100
--- NOTE | 2020-10-22 12:43 | XR_ITS ---
PROCEDURE: XR CHEST PORTABLE CLINICAL HISTORY: Confirm pacemaker/AID placement COMPARISON: CR XR CHEST PORTABLE PICC PLAC from 09/06/2019 CR XR CHEST PORTABLE from 03/26/2020 CR XR CHEST 2V from 04/27/2020 FINDINGS: There is a bipolar pacemaker now present from left subclavian approach with right atrial and right ventricular leads present. No evidence of pneumothorax. No lobar consolidation or collapse. No acute bony abnormalities. IMPRESSION: Interval Sir kim of bipolar pacemaker with good lead placement and no evidence of pneumothorax Dictated by: Sidney Napoles MD 10/22/2020 13:34 Sidney Napoles MD in [place] 10/22/2020 13:34
[2020-10-22 12:45] VITALS: BP 85/58; PULSE 88; RESP 20; O2SAT 100
[2020-10-22 13:00] VITALS: BP 95/51; PULSE 88; RESP 20; O2SAT 100
[2020-10-22 13:15] VITALS: BP 115/74; PULSE 89; O2SAT 100
== END 2020-10-22 14:20 | disposition home or self-care (01) ==
PROVIDERS: PCP Family Medicine; Visit Provider Internal Medicine
PROC: 0JH608Z Insertion of Defibrillator Generator into Chest Subcutaneous Tissue and Fascia, Open Approach (ICD-10-PCS; CPT 33249; principal; 2020-10-22 11:00)
DX: E11.9 Type 2 diabetes mellitus without complications (principal); E78.5 Hyperlipidemia, unspecified; I07.1 Rheumatic tricuspid insufficiency; I11.0 Hypertensive heart disease with heart failure; I25.10 Atherosclerotic heart disease of native coronary artery without angina pectoris; I25.5 Ischemic cardiomyopathy; I27.20 Pulmonary hypertension, unspecified; I34.0 Nonrheumatic mitral (valve) insufficiency; Z95.5 Presence of coronary angioplasty implant and graft; I50.23 Acute on chronic systolic (congestive) heart failure; Z79.4 Long term (current) use of insulin; G43.909 Migraine, unspecified, not intractable, without status migrainosus; F17.210 Nicotine dependence, cigarettes, uncomplicated
CPT/HCPCS: 33249; 71045; 84703; C1721; C1895; C1898; J2704

== ENCOUNTER → 2021-09-15 14:57 | Outpatient (CLI) | payer MEDICARE, MEDICAID, SELFPAY ==
--- NOTE | 2021-09-15 15:05 | US_ITS ---
FINAL REPORT CLINICAL HISTORY: PAROTITIS lt FINDINGS: Sonographic images of the parotid were obtained. The left parotid gland is noted to be enlarged in comparison to the right of uncertain etiology, could represent parotitis. No mass is identified. IMPRESSION: Findings could represent parotitis. Reviewed, Interpreted and Dictated by Checo Campbell III, MD Transcribed by Massiel Roberts Authenticated and [facility]
== END ==
PROVIDERS: PCP Psychiatry & Neurology Sleep Medicine; Visit Provider Physician Assistant
DX: K11.21 Acute sialoadenitis (principal)
CPT/HCPCS: 76536

== ENCOUNTER → 2021-09-27 12:27 | Outpatient (CLI) | payer MEDICARE, MEDICAID, SELFPAY ==
--- NOTE | 2021-09-27 12:32 | XR_ITS ---
FINAL REPORT CLINICAL HISTORY: wound, diabetic FINDINGS: 3 views of the left foot were obtained. There has been resection of the distal 5th metatarsal. There is no acute fracture or dislocation. The joint spaces are intact. There are no bony erosions. There is no periosteal reaction. There is soft tissue ulceration of the lateral distal foot. IMPRESSION: Soft tissue ulceration of the lateral distal foot. Resection of the distal 5th metatarsal. No bony erosions or periosteal reaction. Reviewed, Interpreted and Dictated by Jimmy Cramer MD Transcribed by Medardo Jean-Baptiste Authenticated and [facility]
[2021-09-27 13:32] LABS: Basophils # 0.2 K/mm3 (0-0.2); Basophils % 1.5 % (0.1-2.0); Eosinophils # 0.2 K/mm3 (0.0-0.4); Hematocrit 42.2 % (37.0-47.0); Hemoglobin 13.9 g/dL (12.2-16.2); Lymphocytes % 26.5 % (10-50); Mean Corpuscular Hemoglobin 30.7 pg (27.0-31.2); Mean Platelet Volume 7.3 fl (7.4-10.4); Monocytes # 0.6 K/mm3 (0.1-1.0); Monocytes % 5.5 % (1.7-9.3); Neutrophils # 7.3 K/mm3 (1.8-7.8); Neutrophils % 64.5 % (37.0-80.0); Platelet Count 407 K/mm3 (142-424); Red Blood Count 4.54 M/mm3 (4.20-5.40); Red Cell Distribution Width 14.1 % (11.5-17.5); White Blood Count 11.3 K/mm3 (4.8-10.8)
[2021-09-27 13:47] LABS: Chloride 101 mmol/L (98-107); Sodium 136 mmol/L (136-145)
[2021-09-27 13:48] LABS: Potassium 3.9 mmoL/L (3.5-5.1)
[2021-09-27 13:50] LABS: Alanine Aminotransferase 12 U/L (12-78); Albumin Level 4.1 g/dl (3.5-5.0); Albumin/Globulin Ratio 1.3 (1.1-1.8); Alkaline Phosphatase 170 U/L (38-126); Anion Gap 11.9 mEq/L (5-15); Aspartate Amino Transferase 20 U/L (14-36); Bilirubin,Total 0.4 mg/dl (0.2-1.3); Blood Urea Nitrogen 13 mg/dl (7-17); Calcium 9.8 mg/dl (8.4-10.2); Carbon Dioxide 27 mmol/L (22.0-30.0); Estimated Glomerular Filt Rate 67 ml/min (>60); GFR (African American) 81 ML/MIN (>60); Globulin 3.2 g/dL (1.3-3.2); Glucose 260 mg/dl (74-100); Total Protein,Serum 7.3 g/dl (6.3-8.2)
[2021-09-27 14:03] LABS: C-Reactive Protein 21.3 mg/L (0-4); Erythrocyte Sedimentation Rate 38 mm/hr (0-20)
== END ==
PROVIDERS: PCP Family Medicine; Visit Provider Nurse Practitioner Family
DX: Z51.89 Encounter for other specified aftercare (principal); M25.579 Pain in unspecified ankle and joints of unspecified foot; E10.65 Type 1 diabetes mellitus with hyperglycemia; E55.9 Vitamin D deficiency, unspecified
CPT/HCPCS: 36415; 73630; 80053; 83036; 85025; 85651; 86140; 87070; 87077; 87186; 87205

== ENCOUNTER → 2021-10-01 10:02 | Outpatient (CLI) | payer MEDICARE, MEDICAID, SELFPAY ==
--- NOTE | 2021-10-01 10:18 | CT_ITS ---
FINAL REPORT TECHNIQUE: Axial images through the facial bones and sinuses was performed by computed tomography. Sagittal and coronal reformatted images were obtained and reviewed. This study was performed with techniques to keep radiation doses as low as reasonably achievable (ALARA). Individualized dose reduction techniques using automated exposure control or adjustment of mA and/or kV according to the patient's size were employed. CLINICAL HISTORY: PAROTITIS FINDINGS: There is mild mucoperiosteal thickening in both maxillary sinuses. No air-fluid levels are identified. The ostiomeatal units appear patent. The parotid glands appear symmetric. There is no evidence of sialolith. IMPRESSION: Sinusitis of both maxillary sinuses. Reviewed, Interpreted and Dictated by Jimmy Cramer MD Transcribed by Massiel Roberts Authenticated and [facility]
== END ==
PROVIDERS: PCP Family Medicine; Visit Provider Physician Assistant
DX: K11.20 Sialoadenitis, unspecified (principal)
CPT/HCPCS: 70486

== ENCOUNTER → 2021-10-18 13:36 | Outpatient (CLI) | payer MEDICARE, MEDICAID, SELFPAY ==
--- NOTE | 2021-10-18 13:41 | MM_ITS ---
PROCEDURE INFORMATION: Exam: Bilateral Screening 3D Mammography Exam date and time: 10/18/2021 1:33 PM Age: 51 years old Clinical indication: Screening examination TECHNIQUE: Imaging protocol: Bilateral Screening tomosynthesis and 2D mammography including computer-aided detection (CAD) when performed. COMPARISON: [facility] DIG MAMM-SCREEN ELIZABETH 03/07/2013 1:13 PM FINDINGS: MAMMOGRAPHY: Breast composition: There are scattered areas of fibroglandular density. Mass: None. Architectural distortion: None. Calcifications: Punctate calcifications loosely grouped in the posterior left upper outer quadrant Asymmetric density: None. Skin thickening: None. Axillary adenopathy: None. IMPRESSION: Patient to be recalled for spot magnification views of the left breast in the CC and MLO projections for further evaluation of left breast calcifications. ASSESSMENT: BI-RADS Category 0: Incomplete- Need Additional Imaging Evaluation and/or Prior Mammograms for Comparison
[2021-10-18 18:00] LABS: Basophils # 0.1 K/mm3 (0-0.2); Basophils % 0.7 % (0.1-2.0); Eosinophils # 0.1 K/mm3 (0.0-0.4); Eosinophils % 0.8 % (0.1-12.0); Hematocrit 41.4 % (37.0-47.0); Hemoglobin 13.4 g/dL (12.2-16.2); Lymphocytes # 3.3 K/mm3 (0.7-4.5); Lymphocytes % 23.5 % (10-50); Mean Corpuscular HGB Conc 32.4 g/dL (31.8-35.4); Mean Corpuscular Hemoglobin 29.9 pg (27.0-31.2); Mean Corpuscular Volume 92.3 fl (81-99); Mean Platelet Volume 7.5 fl (7.4-10.4); Monocytes # 0.8 K/mm3 (0.1-1.0); Monocytes % 5.4 % (1.7-9.3); Neutrophils # 9.6 K/mm3 (1.8-7.8); Neutrophils % 69.5 % (37.0-80.0); Platelet Count 367 K/mm3 (142-424); Red Blood Count 4.48 M/mm3 (4.20-5.40); Red Cell Distribution Width 13.3 % (11.5-17.5); White Blood Count 13.8 K/mm3 (4.8-10.8)
[2021-10-18 18:59] LABS: Alanine Aminotransferase 11 U/L (12-78); Albumin Level 3.7 g/dl (3.5-5.0); Albumin/Globulin Ratio 1.2 (1.1-1.8); Alkaline Phosphatase 181 U/L (38-126); Aspartate Amino Transferase 28 U/L (14-36); Bilirubin,Total 0.6 mg/dl (0.2-1.3); Blood Urea Nitrogen 13 mg/dl (7-17); Calcium 9.6 mg/dl (8.4-10.2); Carbon Dioxide 28 mmol/L (22.0-30.0); Chloride 102 mmol/L (98-107); Estimated Glomerular Filt Rate 67 ml/min (>60); GFR (African American) 81 ML/MIN (>60); Globulin 3.1 g/dL (1.3-3.2); Glucose 124 mg/dl (74-100); Sodium 136 mmol/L (136-145); Total Protein,Serum 6.8 g/dl (6.3-8.2)
[2021-10-18 19:01] LABS: Erythrocyte Sedimentation Rate 50 mm/hr (0-20)
[2021-10-18 19:05] LABS: Hemoglobin A1C 9.8 % (4.0-6.0)
[2021-10-18 19:08] LABS: C-Reactive Protein 37.6 mg/L (0-4)
== END ==
PROVIDERS: Podiatrist; PCP Family Medicine; Visit Provider Family Medicine
DX: Z51.89 Encounter for other specified aftercare (principal); G63 Polyneuropathy in diseases classified elsewhere; E10.65 Type 1 diabetes mellitus with hyperglycemia; Z12.31 Encounter for screening mammogram for malignant neoplasm of breast
CPT/HCPCS: 36415; 77063; 77067; 80053; 83036; 85025; 85651; 86140

== ENCOUNTER → 2021-10-18 16:32 | Outpatient (CLI) | payer MEDICARE, MEDICAID, SELFPAY | PROVIDERS: PCP Family Medicine; Visit Provider Podiatrist | DX: Z51.89 Encounter for other specified aftercare (principal); L97.522 Non-pressure chronic ulcer of other part of left foot with fat layer exposed; Z12.31 Encounter for screening mammogram for malignant neoplasm of breast; E11.9 Type 2 diabetes mellitus without complications; Z79.4 Long term (current) use of insulin | CPT/HCPCS: 36415; 77063; 77067; 80053; 83036; 85025; 85651; 86140; 87070; 87077; 87186; 87205 ==

== ENCOUNTER → 2021-10-19 12:49 | Outpatient (CLI) | payer MEDICARE, MEDICAID, SELFPAY ==
--- NOTE | 2021-10-19 12:50 | US_ITS ---
FINAL REPORT CLINICAL HISTORY: WOUNDS 3-4 MT AREA KT FOOT,PRIOR RT BKA,DM,CAD,SMOKER,HTN,HLD,DECREASED PULSES FINDINGS: ANKLE/BRACHIAL INDICES FINDINGS: Pressure indices are as follows: RIGHT LOWER EXTREMITY: Comments: Below the knee amputation LEFT LOWER EXTREMITY: Ankle brachial pressure index: 0.53 Comments: Moderate IMPRESSION: Moderate peripheral arterial disease on the left. Reviewed, Interpreted and Dictated by Checo aCmpbell III, MD Transcribed by Medardo Jean-Baptiste Authenticated and [facility]
== END ==
PROVIDERS: PCP Family Medicine; Visit Provider Podiatrist
DX: I73.9 Peripheral vascular disease, unspecified (principal); R09.89 Other specified symptoms and signs involving the circulatory and respiratory systems
CPT/HCPCS: 93923

== ENCOUNTER → 2021-10-23 10:46 | Outpatient (CLI) | payer MEDICARE, MEDICAID, SELFPAY | PROVIDERS: PCP Family Medicine; Visit Provider Nurse Practitioner | DX: E78.5 Hyperlipidemia, unspecified (principal); G62.9 Polyneuropathy, unspecified; I07.1 Rheumatic tricuspid insufficiency; I25.10 Atherosclerotic heart disease of native coronary artery without angina pectoris; I25.5 Ischemic cardiomyopathy; I27.20 Pulmonary hypertension, unspecified; I34.0 Nonrheumatic mitral (valve) insufficiency; I50.22 Chronic systolic (congestive) heart failure; I73.9 Peripheral vascular disease, unspecified; L97.529 Non-pressure chronic ulcer of other part of left foot with unspecified severity; R68.89 Other general symptoms and signs; R94.31 Abnormal electrocardiogram [ECG] [EKG]; Z72.0 Tobacco use; Z86.73 Personal history of transient ischemic attack (TIA), and cerebral infarction without residual deficits; Z89.519 Acquired absence of unspecified leg below knee; Z01.812 Encounter for preprocedural laboratory examination; Z20.822 Contact with and (suspected) exposure to COVID-19; I11.0 Hypertensive heart disease with heart failure | CPT/HCPCS: C9803; U0003; U0005 ==

== ENCOUNTER 2021-10-25 11:50 | Day surgery (SDC) | payer MEDICARE, MEDICAID, SELFPAY ==
[2021-10-25] VITALS (18 sets, daily range): BP systolic 92–142; BP diastolic 60–91; PULSE 82–95; RESP 18; O2SAT 95–99; BMI 21.4
--- NOTE | 2021-10-25 07:07 | IR_ITS ---
APPROVED REPORT Patient Location: Outpatient Tooling Engineer: MCKENNA Mendoza RT (R) PROCEDURES Right femoral arterial access Right retrograde femoral angiogram Catheter placement in the left common iliac artery Left common iliac artery antegrade angiogram with unilateral runoff to the left foot INDICATION [place] claudication class V, History of right leg [id number] amputation, History of severe peripheral artery disease, Poorly healing left lower extremity ulcer, Critical ALAN left leg Informed consent was obtained prior to the procedure. COMPLICATIONS None Estimated Blood Loss: Less than 10 mls TECHNIQUE 1% lidocaine used anesthetize the right groin the right coronary was accessed via the sounder technique and a 5 [place] sheath was placed in the right femoral artery. A wire would not easily traverse the iliofemoral artery therefore retrograde angiography was performed which demonstrated near subtotal occlusion of the right common iliac artery. An advantage wire was used to traverse and negotiate the severe stenosis. This allowed advancement of a 5 [place] rim catheter which was then used to cannulate the left common iliac artery. Left iliofemoral angiography with unilateral runoff to the left foot was performed. At the end of the procedure the apparatus was removed the patient was transferred to the postop putting in stable condition for sheath removal ANGIOGRAPHIC RESULTS Right common iliac artery is subtotally occluded with a scant medial vessel which cannulized is the right internal iliac artery and right external iliac artery. The right common femoral artery is patent. Left common iliac artery is patent. Left internal iliac artery has an ostial 70% stenosis. Left external iliac artery has proximal 40% stenoses and is patent to the left common femoral artery which is widely patent. The left superficial femoral artery is ostially occluded. A large left profunda femoris artery is widely patent and collateralizes the distal popliteal artery. Below the knee the left anterior tibialis artery is widely patent while the posterior tibialis artery and peroneal artery are occluded IMPRESSION Peripheral artery disease as described above PLAN 1. Medical management. There is neither percutaneous nor surgical revascularization which can benefit patient's lower extremity vasculopathy Electronically signed by : Jeff Martinez MD 10/25/2021 14:13:42
== END 2021-10-25 17:13 | disposition home or self-care (01) ==
LOC: CATHLAB 11:51
PROVIDERS: PCP Family Medicine; Visit Provider Internal Medicine
DX: E11.42 Type 2 diabetes mellitus with diabetic polyneuropathy (principal); E78.5 Hyperlipidemia, unspecified; F17.210 Nicotine dependence, cigarettes, uncomplicated; G62.9 Polyneuropathy, unspecified; I07.1 Rheumatic tricuspid insufficiency; I11.0 Hypertensive heart disease with heart failure; I25.10 Atherosclerotic heart disease of native coronary artery without angina pectoris; I25.5 Ischemic cardiomyopathy; I27.20 Pulmonary hypertension, unspecified; I34.0 Nonrheumatic mitral (valve) insufficiency; I50.22 Chronic systolic (congestive) heart failure; L97.529 Non-pressure chronic ulcer of other part of left foot with unspecified severity; R94.31 Abnormal electrocardiogram [ECG] [EKG]; Z86.73 Personal history of transient ischemic attack (TIA), and cerebral infarction without residual deficits; I70.213 Atherosclerosis of native arteries of extremities with intermittent claudication, bilateral legs; Z79.4 Long term (current) use of insulin; Z79.899 Other long term (current) drug therapy; Z89.511 Acquired absence of right leg below knee
CPT/HCPCS: 36247; 75710; 99152; C1725; C1769; C1894; J1644; Q9966

== ENCOUNTER → 2021-11-02 16:03 | Outpatient (CLI) | payer MEDICARE, MEDICAID, SELFPAY ==
--- NOTE | 2021-11-02 16:07 | XR_ITS ---
FINAL REPORT CLINICAL HISTORY: PREOP TESTING COMPARISON: 10/22/2020 FINDINGS: Two views of the chest were obtained. There is a left subclavian ICD. The heart size and pulmonary vascularity are within normal limits. The mediastinum is normal. No acute pulmonary abnormality is identified. There is no pneumothorax. The bony thorax is intact. IMPRESSION: No active cardiopulmonary disease. Reviewed, Interpreted and Dictated by Checo Campbell III, MD Transcribed by Medardo Jean-Baptiste Authenticated and [facility]
[2021-11-02 16:40] LABS: Basophils # 0.1 K/mm3 (0-0.2); Basophils % 0.7 % (0.1-2.0); Eosinophils # 0.3 K/mm3 (0.0-0.4); Eosinophils % 2.3 % (0.1-12.0); Hematocrit 40.2 % (37.0-47.0); Hemoglobin 12.5 g/dL (12.2-16.2); Lymphocytes # 3.2 K/mm3 (0.7-4.5); Lymphocytes % 25.8 % (10-50); Mean Corpuscular HGB Conc 31.2 g/dL (31.8-35.4); Mean Corpuscular Hemoglobin 29.7 pg (27.0-31.2); Mean Corpuscular Volume 95.1 fl (81-99); Mean Platelet Volume 7.1 fl (7.4-10.4); Monocytes # 0.6 K/mm3 (0.1-1.0); Monocytes % 4.8 % (1.7-9.3); Neutrophils # 8.2 K/mm3 (1.8-7.8); Neutrophils % 66.3 % (37.0-80.0); Platelet Count 424 K/mm3 (142-424); Red Blood Count 4.22 M/mm3 (4.20-5.40); Red Cell Distribution Width 13.6 % (11.5-17.5); White Blood Count 12.4 K/mm3 (4.8-10.8)
[2021-11-02 16:52] LABS: Chloride 103 mmol/L (98-107); Sodium 137 mmol/L (136-145)
[2021-11-02 16:53] LABS: Potassium 4.6 mmoL/L (3.5-5.1)
[2021-11-02 16:55] LABS: Alanine Aminotransferase 14 U/L (12-78); Albumin Level 4.1 g/dl (3.5-5.0); Albumin/Globulin Ratio 1.3 (1.1-1.8); Alkaline Phosphatase 173 U/L (38-126); Anion Gap 10.6 mEq/L (5-15); Aspartate Amino Transferase 21 U/L (14-36); Bilirubin,Total 0.2 mg/dl (0.2-1.3); Blood Urea Nitrogen 14 mg/dl (7-17); Carbon Dioxide 28 mmol/L (22.0-30.0); Estimated Glomerular Filt Rate 76 ml/min (>60); GFR (African American) 92 ML/MIN (>60); Globulin 3.2 g/dL (1.3-3.2); Total Protein,Serum 7.3 g/dl (6.3-8.2)
[2021-11-02 16:56] LABS: Calcium 9.7 mg/dl (8.4-10.2); Glucose 221 mg/dl (74-100)
[2021-11-02 17:01] LABS: C-Reactive Protein 35.1 mg/L (0-4)
[2021-11-02 17:18] LABS: Erythrocyte Sedimentation Rate 56 mm/hr (0-20)
== END ==
PROVIDERS: PCP Family Medicine; Visit Provider Podiatrist
DX: Z01.818 Encounter for other preprocedural examination (principal); Z51.89 Encounter for other specified aftercare; M25.572 Pain in left ankle and joints of left foot; Z20.822 Contact with and (suspected) exposure to COVID-19
CPT/HCPCS: 36415; 71046; 80053; 85025; 85651; 86140; C9803; U0003; U0005

== ENCOUNTER 2021-11-04 10:52 | Day surgery (SDC) | payer MEDICARE, MEDICAID, SELFPAY ==
[2021-11-04] VITALS (10 sets, daily range): BP systolic 84–109; BP diastolic 52–72; PULSE 88–95; RESP 16–20; TEMP 36.4–43; O2SAT 94–99
[2021-11-04 11:38] LABS: POC Glucose,Bedside 202 (70-110)
[2021-11-04 11:41] LABS: HCG Qualitative, Serum Negative (Negative)
--- NOTE | 2021-11-04 13:17 | HMH.ANESCL ---
[facility] Anesthesia Checklist - Patient Identification Patient Identification: Arm Band, Verbal (Name & ) - Structural Data Admitted From: Home Planned Operative Procedure/s: Left Metatarsal Amputation Consent for Planned Operative Procedure(s) Verified: Yes Verified Documents: Surgical Consent - NPO Status Verified Time NPO: 00:00 - Additional verifications Anesthesia Reactions: No Hx Blood Transfusions: No Blood Transfusion Reaction: No - Airway Assessment C-Spine Mobility Assessed: Yes TMJ Mobility Assessed: Yes Dentition: Edentulous - Neurological Assessment Level of Consciousness: Awake, Alert, Appropriate - Anesthesia Plan Anesthesia Risk discussed: Yes ASA Class: III Anesthesia Type: General w/block [facility] History I have reviewed the patient's past medical history: Yes Medical History: Reports:: Arrhythmia, Atherosclerotic Heart Disease, Cardiomyopathy, Congestive Heart Failure, Coronary Artery Disease, Cerebrovascular Accident, Deep Vein Thrombosis, Diabetes Mellitus Type 2, Hyperlipidemia, Hypertension, Migraine, Myocardial Infarction, Peripheral Artery Disease, Peripheral Vascular Disease, Transient Ischemic Attacks (TIA) Denies:: Cancer, Diabetes Mellitus Type 1, Internal Pacemaker, MRSA, Seizures *Have you ever received a pneumonia vaccine?: No *Have you received a flu vaccine this season?: No Other Medical History: Reports: Acquired Immunodeficiency Syndrome (AIDS). Denies: Blood Transfusion Reaction Anesthesia experience/problems:: none Laterality Cases: Right: Other Other Surgeries: Yes: No Previous Surgery, Angiogram, Angioplasty, Cardiac Catheterization, Cholecystectomy, Coronary Stent, Tubal Ligation. 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., pinky toe R foot; and right BKA 1 2020) Fractures: No - *Social History Last grade of school completed: High school graduate Smoking Status: Current every day smoker Tobacco Type: cigarettes # Packs/Day (cigarettes): 1 #Yrs smoked (if former smoker): 30 Alcohol Intake: never Alcohol Intake Frequency:: a few times a month Substance Use Type: denies use *Occupational Status:: disabled Housing: house Household Members: children *Travel in the last 8 weeks: None Family Hx:: Diabetes, Heart Attack
--- NOTE | 2021-11-04 14:30 | XR_ITS ---
FINAL REPORT CLINICAL HISTORY: Post op amp COMPARISON: September 27, 2021 FINDINGS: LEFT FOOT: Three views of the left foot were obtained. There are interval postoperative changes from amputation at the level of the midfoot. Multiple antibiotic beads are present. There is no acute fracture or dislocation. IMPRESSION: Postoperative changes as above. Reviewed, Interpreted and Dictated by Checo Campbell III, MD Transcribed by Ana Morrissey Authenticated and . [facility]
--- NOTE | 2021-11-04 14:49 | P.PN_ITS ---
[facility] Anesthesia Record Part I Intake, IV Amount: 1,000 Estimated blood loss (mL): 10 Urine output (mL): 0 Blood Pressure: 109/68 SaO2: 96 Pulse Rate: 95 Respiratory Rate: 16 Temperature: 97.9 F Patient is:: Drowsy, Stable Stable to PACU at:: 14:40
--- NOTE | 2021-11-04 14:52 | HMH.OPNOTE ---
Date of procedure: 11/04/21 Pre-op Diagnosis:: 1. Ulcer of left foot with necrosis of muscle L97.523 2. Encounter for wound care Z51.89 3. Gangrenous cellulitis I96 4. Polyneuropathy associated with underlying disease G63 5. Peripheral arterial disease I73.9 6. Abnormal ankle brachial index (ALAN) R68.89 7. Tobacco use Z72.0 8. Noncompliance Z91.19 9. S/P BKA (below knee amputation) Z89.511 Post-op Diagnosis:: Same Procedure performed:: 1. Left midtarsal amputation 2. Adjacent soft tissue transfer rearrangement (43313) 3. I&D bone cortex (67884) 4. Open left foot bone biopsy () 5. PMMA bead insertion (54207) 6. Left wound/ulcer excision Surgeon:: Margaux Aly DPM TAKE OFF MAN:: Barrett Devine Anesthesia: regional (L pop block), LMA Estimated blood loss (mL): 10 Clinical Note:: Patient is a 51-year-old diabetic female with a history of tobacco abuse and a right below-knee amputation. She presents with diabetic foot ulcer to the left foot and worsening gangrenous changes after fall. Recent wound culture showing MRSA. She has been on Sivextro. Discussed PAD and gangrene. Explained she is high risk for infections including cellulitis and OM. She is high risk for partial foot or limb loss. Hx of cellulitis infection, DFU, OM, and R BKA. Hx of non-compliance with local wound care, not off-loading, not wearing custom DM shoes/inserts, DM glucose control and still smoking. History of foot infection and difficulty in healing. Discussed conservative versus surgical treatment, risks and benefits. We discussed surgical intervention for amputation of the left midfoot. Patient understands that there is a chance that the foot may change shape after surgery. Patient also understands that they could have wound healing complications including delayed healing and infection. We discussed that if the wound does not heal, it is possible that they may need a more proximal amputation and could result in loss of leg. We discussed the risks and benefits in great detail. Other surgical risks include: prolonged pain and swelling, further infection requiring oral or IV antibiotics, delay in healing of soft tissue or bone, nerve or blood vessel damage, CRPS/RSD, DVT, anesthesia complications, and even . All questions answered. Patient verbalized understanding. Consent obtained. Discussed plan of care with PCP Dr. Maldonado. Pre-op labs: ESR, CRP, CBC, CMP, CXR. Operative findings:: Left foot with 5th toe gangrene. Ulcer sub 4th met head periwound callus noted. Wound base 100% yellow fibrotic with no periwound maceration, no tristan purulence noted. Wound thru skin into/including subq, measured 0.5x0.5x0.4cm. Black dark discoloration and gangrenous changes extending from the wound up to the metatarsal extending to the fifth digit. The dorsal left foot wound has intact 40% yellow with 60% brown/black eschar, 4 x 3 x 0.0 cm. No deep purulence expressed. All non-viable soft tissue was sharply resected/debrided full thickness to metatarsal bones. There was a large defect noted post debridement of the left foot: [id number]. Soft tissue rearrangement performed, no defect after primary closure. Minimal bleeding noted. High risk for skin incision healing complication and risk for more proximal amputation/BKA. Operative note:: On this date and time patient was deemed an appropriate surgical candidate. With informed consent signed, the patient was taken to the operating theater after popliteal block by anesthesia. The patient was positioned supine. General anesthesia was induced. No tourniquet. The left extremity was prepped and draped in normal sterile fashion. IV Vanco. Left wound/ulcer excision: Attention was directed to the plantar lateral and dorsal aspect of the left foot where a ulcers were noted. See operative findings for measurements and details. Utilizing 15 blade and forceps, ulcer was excised full-thickness down to the level of deep fascia and capsule over the 1-5th metatarsal
[2021-11-04 15:00] LABS: POC Glucose,Bedside 115 (70-110)
--- NOTE | 2021-11-04 15:24 | SUR.PHASEI ---
1445 FSBS checked 115 1450 Radioogy at bedside 1513-detailed report to Judie Mao RN outpt surgery
--- NOTE | 2021-11-04 16:36 | HMH.ANESII ---
[facility] Anesthesia Record Part II Discharge Time: 15:10 Destination: Surgical Day Care (OP Surgery) PACU nurse assessment reviewed?: Yes Patient Condition:: Good Anesthesia Complications:: None Swallowing reflex intact?: Yes Cyanosis?: No Blood Pressure: 109/68 Pulse Rate: 95 Temperature: 97.9 F Mental Status: Alert & Oriented Pain level:: 0 Nausea and/or vomitting:: None Intake, IV Amount: 0
== END 2021-11-04 15:45 | disposition home or self-care (01) ==
LOC: OR 10:54
PROVIDERS: PCP Family Medicine; Visit Provider Podiatrist
PROC: (CPT 28800; principal; 2021-11-04 12:15)
DX: E11.628 Type 2 diabetes mellitus with other skin complications (principal); Z79.4 Long term (current) use of insulin; I25.10 Atherosclerotic heart disease of native coronary artery without angina pectoris; I42.9 Cardiomyopathy, unspecified; I50.9 Heart failure, unspecified; I11.0 Hypertensive heart disease with heart failure; I70.262 Atherosclerosis of native arteries of extremities with gangrene, left leg; L97.523 Non-pressure chronic ulcer of other part of left foot with necrosis of muscle; I96 Gangrene, not elsewhere classified; G63 Polyneuropathy in diseases classified elsewhere; R29.6 Repeated falls; F17.210 Nicotine dependence, cigarettes, uncomplicated
CPT/HCPCS: 28800; 73630; 82962; 84703; 87077; 87186; 88304; 88305; 88311; 96374; C1713; J2405

== ENCOUNTER 2021-11-16 11:28 | Outpatient (CLI) | payer MEDICARE, MEDICAID, SELFPAY ==
[2021-11-16 12:30] VITALS: BMI 21.6
--- NOTE | 2021-11-16 12:30 | XR_ITS ---
FINAL REPORT CLINICAL HISTORY: to verify PICC placement-- pleae read stat-- waiting for verification!! COMPARISON: 11/02/2021 FINDINGS: SINGLE-VIEW CHEST The heart size is normal. The mediastinum is normal. Left subclavian ICD is present. Right PICC line tip terminates in the lower SVC. The lungs are clear. There is no pneumothorax. IMPRESSION: Right PICC line tip terminates in the lower SVC. Reviewed, Interpreted and Dictated by Checo Campbell III, MD Transcribed by Massiel Roberts Authenticated and [facility]
[2021-11-16 13:55] VITALS: BP 138/77; PULSE 73; RESP 20; TEMP 36.9; O2SAT 95
[2021-11-16 14:55] VITALS: BP 132/77; PULSE 87; RESP 20; TEMP 36.9; O2SAT 100
== END 2021-11-16 14:00 | disposition home or self-care (01) ==
LOC: INF 11:29
PROVIDERS: PCP Family Medicine; Visit Provider Podiatrist
DX: Z22.322 Carrier or suspected carrier of Methicillin resistant Staphylococcus aureus (principal); L03.116 Cellulitis of left lower limb; T81.31XA Disruption of external operation (surgical) wound, not elsewhere classified, initial encounter
CPT/HCPCS: 36410; 36569; 71045; 96365; C1751; J0878

== ENCOUNTER → 2021-11-23 10:35 | Outpatient (CLI) | payer MEDICARE, MEDICAID, SELFPAY ==
[2021-11-23 10:49] LABS: Basophils # 0.1 K/mm3 (0-0.2); Basophils % 0.6 % (0.1-2.0); Eosinophils # 0.2 K/mm3 (0.0-0.4); Eosinophils % 2.2 % (0.1-12.0); Hematocrit 29.7 % (37.0-47.0); Hemoglobin 9.5 g/dL (12.2-16.2); Lymphocytes # 2.5 K/mm3 (0.7-4.5); Lymphocytes % 21.9 % (10-50); Mean Corpuscular HGB Conc 32.1 g/dL (31.8-35.4); Mean Corpuscular Hemoglobin 29.3 pg (27.0-31.2); Mean Corpuscular Volume 91.2 fl (81-99); Mean Platelet Volume 7.1 fl (7.4-10.4); Monocytes # 0.6 K/mm3 (0.1-1.0); Monocytes % 5.1 % (1.7-9.3); Neutrophils # 7.9 K/mm3 (1.8-7.8); Neutrophils % 70.2 % (37.0-80.0); Platelet Count 470 K/mm3 (142-424); Red Blood Count 3.25 M/mm3 (4.20-5.40); Red Cell Distribution Width 14.5 % (11.5-17.5); White Blood Count 11.2 K/mm3 (4.8-10.8)
[2021-11-23 10:58] LABS: Alanine Aminotransferase 13 U/L (12-78); Albumin Level 2.9 g/dl (3.5-5.0); Albumin/Globulin Ratio 0.9 (1.1-1.8); Alkaline Phosphatase 174 U/L (38-126); Anion Gap 5.9 mEq/L (5-15); Aspartate Amino Transferase 20 U/L (14-36); Blood Urea Nitrogen 6 mg/dl (7-17); Calcium 8.7 mg/dl (8.4-10.2); Carbon Dioxide 30 mmol/L (22.0-30.0); Chloride 103 mmol/L (98-107); Creatine Kinase 52 U/L (30-135); Estimated Glomerular Filt Rate 76 ml/min (>60); GFR (African American) 92 ML/MIN (>60); Globulin 3.2 g/dL (1.3-3.2); Glucose 247 mg/dl (74-100); Potassium 3.9 mmoL/L (3.5-5.1); Sodium 135 mmol/L (136-145); Total Protein,Serum 6.1 g/dl (6.3-8.2)
[2021-11-23 11:00] LABS: Bilirubin,Total < 0.1 mg/dl (0.2-1.3)
[2021-11-23 11:04] LABS: C-Reactive Protein 25.3 mg/L (0-4)
[2021-11-23 11:58] LABS: Erythrocyte Sedimentation Rate > 140 mm/hr (0-20)
== END ==
PROVIDERS: PCP Family Medicine; Visit Provider Podiatrist
DX: L08.9 Local infection of the skin and subcutaneous tissue, unspecified (principal); E11.628 Type 2 diabetes mellitus with other skin complications; Z22.322 Carrier or suspected carrier of Methicillin resistant Staphylococcus aureus
CPT/HCPCS: 80053; 82550; 85025; 85651; 86140

== ENCOUNTER → 2021-11-29 11:58 | Outpatient (CLI) | payer MEDICARE, MEDICAID, SELFPAY ==
[2021-11-29 12:29] LABS: Basophils # 0.1 K/mm3 (0-0.2); Basophils % 0.8 % (0.1-2.0); Eosinophils # 0.3 K/mm3 (0.0-0.4); Eosinophils % 2.1 % (0.1-12.0); Hematocrit 33.6 % (37.0-47.0); Hemoglobin 10.9 g/dL (12.2-16.2); Lymphocytes # 3.5 K/mm3 (0.7-4.5); Lymphocytes % 25.5 % (10-50); Mean Corpuscular HGB Conc 32.3 g/dL (31.8-35.4); Mean Platelet Volume 7.8 fl (7.4-10.4); Monocytes # 0.7 K/mm3 (0.1-1.0); Monocytes % 5.2 % (1.7-9.3); Neutrophils % 66.4 % (37.0-80.0); Platelet Count 541 K/mm3 (142-424); Red Blood Count 3.61 M/mm3 (4.20-5.40); White Blood Count 13.6 K/mm3 (4.8-10.8)
[2021-11-29 12:43] LABS: Chloride 100 mmol/L (98-107)
[2021-11-29 12:44] LABS: Potassium 4.3 mmoL/L (3.5-5.1); Sodium 133 mmol/L (136-145)
[2021-11-29 12:46] LABS: Alanine Aminotransferase 16 U/L (12-78); Alkaline Phosphatase 218 U/L (38-126); Aspartate Amino Transferase 25 U/L (14-36); Bilirubin,Total 0.2 mg/dl (0.2-1.3); Blood Urea Nitrogen 11 mg/dl (7-17); Estimated Glomerular Filt Rate 76 ml/min (>60); GFR (African American) 92 ML/MIN (>60)
[2021-11-29 12:47] LABS: Albumin Level 3.6 g/dl (3.5-5.0); Anion Gap 11.3 mEq/L (5-15); Calcium 8.1 mg/dl (8.4-10.2); Carbon Dioxide 26 mmol/L (22.0-30.0); Creatine Kinase 61 U/L (30-135); Globulin 3.5 g/dL (1.3-3.2); Glucose 341 mg/dl (74-100); Total Protein,Serum 7.1 g/dl (6.3-8.2)
[2021-11-29 12:52] LABS: C-Reactive Protein 22.7 mg/L (0-4)
[2021-11-29 12:58] LABS: Erythrocyte Sedimentation Rate 108 mm/hr (0-20)
== END ==
PROVIDERS: PCP Family Medicine; Visit Provider Podiatrist
DX: L08.9 Local infection of the skin and subcutaneous tissue, unspecified (principal); E11.628 Type 2 diabetes mellitus with other skin complications; Z22.322 Carrier or suspected carrier of Methicillin resistant Staphylococcus aureus; Z79.4 Long term (current) use of insulin
CPT/HCPCS: 80053; 82550; 85025; 85651; 86140

== ENCOUNTER → 2021-11-30 16:27 | Outpatient (CLI) | payer MEDICARE, MEDICAID, SELFPAY ==
--- NOTE | 2021-11-30 16:31 | XR_ITS ---
PROCEDURE INFORMATION: Exam: XR Left Foot Complete; Alignment Exam date and time: 11/30/2021 4:33 PM Age: 51 years old Clinical indication: Condition or disease; Other: Post op; Prior surgery; Surgery date: 1-6 months; Surgery type: Amputation; Additional info: Postop TECHNIQUE: Imaging protocol: Radiologic exam of the Left foot. Views: 3 or more views. COMPARISON: CR XR FOOT LT MIN 3V 11/04/2021 2:48 PM FINDINGS: Bones/joints: Patient is status post amputation of most of the foot except for the talus calcaneus and navicular.. Soft tissues: Multiple antibiotic beads are seen in the soft tissues in the anterior aspect of the foot.. The number beads have decreased compared to the prior study. IMPRESSION: 1. Patient is status post amputation of most of the foot except for the talus calcaneus and navicular.. 2. Multiple antibiotic beads are seen in the soft tissues in the anterior aspect of the foot.. The number beads have decreased compared to the prior study.
== END ==
PROVIDERS: PCP Family Medicine; Visit Provider Nurse Practitioner Family
DX: T81.31XA Disruption of external operation (surgical) wound, not elsewhere classified, initial encounter (principal); Z98.890 Other specified postprocedural states
CPT/HCPCS: 73630

== ENCOUNTER → 2021-12-06 12:33 | Outpatient (CLI) | payer MEDICARE, MEDICAID, SELFPAY ==
[2021-12-06 12:52] LABS: Basophils # 0.1 K/mm3 (0-0.2); Basophils % 1.2 % (0.1-2.0); Eosinophils # 0.3 K/mm3 (0.0-0.4); Hematocrit 32.6 % (37.0-47.0); Lymphocytes # 3.5 K/mm3 (0.7-4.5); Lymphocytes % 31.1 % (10-50); Mean Corpuscular HGB Conc 33.7 g/dL (31.8-35.4); Mean Corpuscular Hemoglobin 30.5 pg (27.0-31.2); Mean Corpuscular Volume 90.7 fl (81-99); Mean Platelet Volume 7.7 fl (7.4-10.4); Monocytes # 0.6 K/mm3 (0.1-1.0); Monocytes % 5.2 % (1.7-9.3); Neutrophils # 6.7 K/mm3 (1.8-7.8); Neutrophils % 59.4 % (37.0-80.0); Platelet Count 506 K/mm3 (142-424); Red Cell Distribution Width 14.7 % (11.5-17.5); White Blood Count 11.3 K/mm3 (4.8-10.8)
[2021-12-06 13:24] LABS: Chloride 99 mmol/L (98-107)
[2021-12-06 13:25] LABS: Potassium 3.9 mmoL/L (3.5-5.1); Sodium 137 mmol/L (136-145)
[2021-12-06 13:28] LABS: Alanine Aminotransferase 18 U/L (12-78); Albumin Level 3.7 g/dl (3.5-5.0); Albumin/Globulin Ratio 1.2 (1.1-1.8); Alkaline Phosphatase 216 U/L (38-126); Anion Gap 16.9 mEq/L (5-15); Aspartate Amino Transferase 29 U/L (14-36); Bilirubin,Total 0.2 mg/dl (0.2-1.3); Blood Urea Nitrogen 13 mg/dl (7-17); Calcium 8.6 mg/dl (8.4-10.2); Carbon Dioxide 25 mmol/L (22.0-30.0); Creatine Kinase 101 U/L (30-135); Estimated Glomerular Filt Rate 67 ml/min (>60); GFR (African American) 81 ML/MIN (>60); Globulin 3.2 g/dL (1.3-3.2); Glucose 323 mg/dl (74-100); Total Protein,Serum 6.9 g/dl (6.3-8.2)
[2021-12-06 13:34] LABS: C-Reactive Protein 13.8 mg/L (0-4)
[2021-12-06 17:20] LABS: Erythrocyte Sedimentation Rate 95 mm/hr (0-20)
== END ==
PROVIDERS: Visit Provider Podiatrist
DX: E11.628 Type 2 diabetes mellitus with other skin complications (principal); L08.9 Local infection of the skin and subcutaneous tissue, unspecified; Z22.322 Carrier or suspected carrier of Methicillin resistant Staphylococcus aureus; Z79.4 Long term (current) use of insulin
CPT/HCPCS: 80053; 82550; 85025; 85651; 86140

== ENCOUNTER → 2021-12-14 11:04 | Outpatient (CLI) | payer MEDICARE, MEDICAID, SELFPAY ==
[2021-12-14 12:24] LABS: Basophils # 0.1 K/mm3 (0-0.2); Eosinophils # 0.3 K/mm3 (0.0-0.4); Eosinophils % 2.4 % (0.1-12.0); Hematocrit 34.5 % (37.0-47.0); Hemoglobin 11.1 g/dL (12.2-16.2); Lymphocytes # 3.5 K/mm3 (0.7-4.5); Lymphocytes % 28.2 % (10-50); Mean Corpuscular HGB Conc 32.1 g/dL (31.8-35.4); Mean Corpuscular Hemoglobin 29.2 pg (27.0-31.2); Mean Corpuscular Volume 90.9 fl (81-99); Mean Platelet Volume 7.5 fl (7.4-10.4); Monocytes # 0.7 K/mm3 (0.1-1.0); Monocytes % 5.8 % (1.7-9.3); Neutrophils # 7.9 K/mm3 (1.8-7.8); Neutrophils % 62.8 % (37.0-80.0); Platelet Count 466 K/mm3 (142-424); Red Cell Distribution Width 14.4 % (11.5-17.5); White Blood Count 12.6 K/mm3 (4.8-10.8)
[2021-12-14 12:55] LABS: Alanine Aminotransferase 18 U/L (12-78); Albumin Level 3.6 g/dl (3.5-5.0); Albumin/Globulin Ratio 1.2 (1.1-1.8); Alkaline Phosphatase 201 U/L (38-126); Anion Gap 15.7 mEq/L (5-15); Aspartate Amino Transferase 22 U/L (14-36); Bilirubin,Total 0.2 mg/dl (0.2-1.3); Blood Urea Nitrogen 11 mg/dl (7-17); Calcium 8.7 mg/dl (8.4-10.2); Carbon Dioxide 24 mmol/L (22.0-30.0); Chloride 96 mmol/L (98-107); Estimated Glomerular Filt Rate 59 ml/min (>60); GFR (African American) 71 ML/MIN (>60); Globulin 3.1 g/dL (1.3-3.2); Glucose 354 mg/dl (74-100); Potassium 3.7 mmoL/L (3.5-5.1); Sodium 132 mmol/L (136-145); Total Protein,Serum 6.7 g/dl (6.3-8.2)
[2021-12-14 13:46] LABS: Chloride 97 mmol/L (98-107); Potassium 3.9 mmoL/L (3.5-5.1); Sodium 133 mmol/L (136-145)
[2021-12-14 13:49] LABS: Alanine Aminotransferase 17 U/L (12-78); Alkaline Phosphatase 195 U/L (38-126); Anion Gap 14.9 mEq/L (5-15); Aspartate Amino Transferase 44 U/L (14-36); Bilirubin,Total 0.3 mg/dl (0.2-1.3); Blood Urea Nitrogen 12 mg/dl (7-17); Carbon Dioxide 25 mmol/L (22.0-30.0); Creatine Kinase 83 U/L (30-135); Estimated Glomerular Filt Rate 67 ml/min (>60); GFR (African American) 81 ML/MIN (>60)
[2021-12-14 13:50] LABS: Albumin Level 3.7 g/dl (3.5-5.0); Albumin/Globulin Ratio 1.2 (1.1-1.8); Calcium 8.7 mg/dl (8.4-10.2); Globulin 3.1 g/dL (1.3-3.2); Glucose 350 mg/dl (74-100); Total Protein,Serum 6.8 g/dl (6.3-8.2)
[2021-12-14 13:55] LABS: C-Reactive Protein 21.4 mg/L (0-4)
[2021-12-14 14:37] LABS: Erythrocyte Sedimentation Rate 93 mm/hr (0-20)
[2021-12-14 14:43] LABS: Basophils # 0.1 K/mm3 (0-0.2); Basophils % 1.1 % (0.1-2.0); Eosinophils # 0.3 K/mm3 (0.0-0.4); Eosinophils % 2.2 % (0.1-12.0); Hematocrit 34.8 % (37.0-47.0); Hemoglobin 11.2 g/dL (12.2-16.2); Lymphocytes # 3.4 K/mm3 (0.7-4.5); Mean Corpuscular HGB Conc 32.1 g/dL (31.8-35.4); Mean Corpuscular Hemoglobin 29.1 pg (27.0-31.2); Mean Corpuscular Volume 90.6 fl (81-99); Mean Platelet Volume 7.9 fl (7.4-10.4); Monocytes # 0.7 K/mm3 (0.1-1.0); Monocytes % 5.6 % (1.7-9.3); Neutrophils # 8.1 K/mm3 (1.8-7.8); Neutrophils % 64.1 % (37.0-80.0); Platelet Count 456 K/mm3 (142-424); Red Blood Count 3.84 M/mm3 (4.20-5.40); Red Cell Distribution Width 14.6 % (11.5-17.5); White Blood Count 12.7 K/mm3 (4.8-10.8)
== END ==
PROVIDERS: Orthopaedic Surgery; PCP Podiatrist; Visit Provider Podiatrist
DX: T81.31XA Disruption of external operation (surgical) wound, not elsewhere classified, initial encounter (principal); Z01.818 Encounter for other preprocedural examination
CPT/HCPCS: 80053; 82550; 85025; 85651; 86140

== ENCOUNTER → 2021-12-20 13:40 | Outpatient (CLI) | payer MEDICARE, MEDICAID, SELFPAY ==
[2021-12-20 14:44] LABS: Basophils # 0.2 K/mm3 (0-0.2); Basophils % 1.4 % (0.1-2.0); Eosinophils # 0.3 K/mm3 (0.0-0.4); Eosinophils % 2.3 % (0.1-12.0); Hematocrit 35.1 % (37.0-47.0); Hemoglobin 11.7 g/dL (12.2-16.2); Lymphocytes # 3.8 K/mm3 (0.7-4.5); Lymphocytes % 27.9 % (10-50); Mean Corpuscular HGB Conc 33.4 g/dL (31.8-35.4); Mean Corpuscular Volume 89.7 fl (81-99); Mean Platelet Volume 7.4 fl (7.4-10.4); Monocytes # 0.7 K/mm3 (0.1-1.0); Neutrophils # 8.6 K/mm3 (1.8-7.8); Neutrophils % 63.5 % (37.0-80.0); Platelet Count 436 K/mm3 (142-424); Red Blood Count 3.91 M/mm3 (4.20-5.40); Red Cell Distribution Width 14.3 % (11.5-17.5); White Blood Count 13.5 K/mm3 (4.8-10.8)
[2021-12-20 15:11] LABS: Chloride 97 mmol/L (98-107); Erythrocyte Sedimentation Rate 82 mm/hr (0-20); Sodium 133 mmol/L (136-145)
[2021-12-20 15:14] LABS: Alanine Aminotransferase 14 U/L (12-78); Albumin Level 3.8 g/dl (3.5-5.0); Albumin/Globulin Ratio 1.1 (1.1-1.8); Alkaline Phosphatase 207 U/L (38-126); Aspartate Amino Transferase 28 U/L (14-36); Bilirubin,Total 0.2 mg/dl (0.2-1.3); Blood Urea Nitrogen 15 mg/dl (7-17); Calcium 8.5 mg/dl (8.4-10.2); Carbon Dioxide 25 mmol/L (22.0-30.0); Creatine Kinase 58 U/L (30-135); Estimated Glomerular Filt Rate 76 ml/min (>60); GFR (African American) 92 ML/MIN (>60); Globulin 3.4 g/dL (1.3-3.2); Glucose 313 mg/dl (74-100); Total Protein,Serum 7.2 g/dl (6.3-8.2)
[2021-12-20 15:22] LABS: C-Reactive Protein 8.4 mg/L (0-4)
== END ==
PROVIDERS: PCP Family Medicine; Visit Provider Podiatrist
DX: E11.628 Type 2 diabetes mellitus with other skin complications (principal); L08.9 Local infection of the skin and subcutaneous tissue, unspecified; Z22.322 Carrier or suspected carrier of Methicillin resistant Staphylococcus aureus; Z79.4 Long term (current) use of insulin
CPT/HCPCS: 80053; 82550; 85025; 85651; 86140

== ENCOUNTER → 2021-12-27 14:04 | Outpatient (CLI) | payer MEDICARE, MEDICAID, SELFPAY | PROVIDERS: PCP Family Medicine; Visit Provider Podiatrist | DX: L08.9 Local infection of the skin and subcutaneous tissue, unspecified (principal); E11.628 Type 2 diabetes mellitus with other skin complications; Z22.322 Carrier or suspected carrier of Methicillin resistant Staphylococcus aureus ==

== ENCOUNTER → 2022-01-03 09:13 | Outpatient (CLI) | payer MEDICARE, MEDICAID, SELFPAY ==
[2022-01-03 09:59] LABS: Basophils # 0.1 K/mm3 (0-0.2); Basophils % 1.5 % (0.1-2.0); Eosinophils # 0.1 K/mm3 (0.0-0.4); Eosinophils % 1.4 % (0.1-12.0); Hematocrit 34.6 % (37.0-47.0); Hemoglobin 11.4 g/dL (12.2-16.2); Lymphocytes # 1.9 K/mm3 (0.7-4.5); Lymphocytes % 27.6 % (10-50); Mean Corpuscular HGB Conc 33.1 g/dL (31.8-35.4); Mean Corpuscular Volume 84.6 fl (81-99); Mean Platelet Volume 7.7 fl (7.4-10.4); Monocytes # 0.6 K/mm3 (0.1-1.0); Monocytes % 8.4 % (1.7-9.3); Neutrophils # 4.2 K/mm3 (1.8-7.8); Neutrophils % 61.2 % (37.0-80.0); Platelet Count 431 K/mm3 (142-424); Red Blood Count 4.08 M/mm3 (4.20-5.40); Red Cell Distribution Width 13.8 % (11.5-17.5); White Blood Count 6.9 K/mm3 (4.8-10.8)
[2022-01-03 10:34] LABS: Chloride 88 mmol/L (98-107); Potassium 3.8 mmoL/L (3.5-5.1); Sodium 125 mmol/L (136-145)
[2022-01-03 10:37] LABS: Alanine Aminotransferase 18 U/L (12-78); Albumin Level 3.7 g/dl (3.5-5.0); Albumin/Globulin Ratio 1.4 (1.1-1.8); Alkaline Phosphatase 190 U/L (38-126); Anion Gap 14.8 mEq/L (5-15); Aspartate Amino Transferase 26 U/L (14-36); Bilirubin,Total 0.3 mg/dl (0.2-1.3); Blood Urea Nitrogen 4 mg/dl (7-17); Carbon Dioxide 26 mmol/L (22.0-30.0); Estimated Glomerular Filt Rate 89 ml/min (>60); GFR (African American) 108 ML/MIN (>60); Globulin 2.7 g/dL (1.3-3.2); Glucose 301 mg/dl (74-100); Total Protein,Serum 6.4 g/dl (6.3-8.2)
[2022-01-03 10:43] LABS: C-Reactive Protein 15.5 mg/L (0-4)
== END ==
PROVIDERS: PCP Family Medicine; Visit Provider Orthopaedic Surgery
DX: M25.572 Pain in left ankle and joints of left foot (principal); Z01.818 Encounter for other preprocedural examination
CPT/HCPCS: 36415; 80053; 85025; 86140

== ENCOUNTER → 2022-01-05 12:27 | Outpatient (CLI) | payer MEDICARE, MEDICAID, SELFPAY ==
[2022-01-05 12:32] LABS: Microscopic, Urine URINE MICROSCOPIC (MICROSCOPIC)
[2022-01-05 13:13] LABS: Appearance,Urine CLEAR (Clear); Bilirubin,Urine Negative (Negative); Blood, Urine 2+ (Negative); Color,Urine YELLOW (Yellow); Glucose,Urine (UA) 3+ (Negative); Ketones,Urine Negative (Negative); Leukocyte Esterase,Urine Negative (Negative); Nitrate,Urine Negative (Negative); Protein,Urine Negative (Negative); Urobilinogen,Urine 0.2 EU/dl (0.2)
[2022-01-05 14:05] LABS: Squamous Epithelial Cell,Urine Occasional #/hpf (0-5); WBC,Urine Occasional #/hpf (0-3)
== END ==
PROVIDERS: PCP Family Medicine; Visit Provider Orthopaedic Surgery
DX: Z01.818 Encounter for other preprocedural examination (principal)
CPT/HCPCS: 81001

== ENCOUNTER 2022-01-07 09:38 | Day surgery (SDC) | payer MEDICARE, MEDICAID, SELFPAY ==
[2022-01-06 09:04] VITALS: BMI 22.6
[2022-01-07 10:07] LABS: Coronavirus 19, PCR Not Detected (NotDetected); Influenza A, PCR Not Detected (NotDetected); Influenza B, PCR Not Detected (NotDetected)
--- NOTE | 2022-01-07 13:33 | SUR.PREOP ---
Procedure cancelled per Dr Diop r/t pt not stopping her Brilinta. Appt. made for CARDIAC CLEARANCE ON 01/10, PT TO F/U w/ Dr Diop's office thereafter to reschedule.
[2022-01-08 15:16] LABS: POC Glucose,Bedside 255 (70-110)
== END 2022-01-07 10:15 | disposition home or self-care (01) ==
LOC: OR 09:39
PROVIDERS: PCP Family Medicine; Visit Provider Orthopaedic Surgery
PROC: (CPT 27880; principal; 2022-01-07 11:00)
DX: Z53.09 Procedure and treatment not carried out because of other contraindication (principal); E11.9 Type 2 diabetes mellitus without complications; Z79.01 Long term (current) use of anticoagulants; Z79.4 Long term (current) use of insulin
CPT/HCPCS: 82962; C9803; U0003; U0005

== ENCOUNTER → 2022-01-14 13:54 | Outpatient (CLI) | payer MEDICARE, MEDICAID, SELFPAY ==
--- NOTE | 2022-01-14 13:58 | CA_ITS ---
APPROVED REPORT EXAM: Comprehensive 2D, Doppler, and color-flow Echocardiogram Vp Ad Products And Planning: Juliet Johnson RVT Ht: 5 ft 5 in Wt: 130lbs BSA: 1.65 BP: 122/76 mmHg Indications: SOA,PRE-OP,CAD,CM,PHTN,ABN EKG,AICD,CHF,DM,SMOKER,HTN 2D Dimensions LVOT 2.22 cm (M/F) 1.5-2.5 LA Volume 30.00 mL LA Volume Index 18.29 mL/m2 (M/F) 16-34 M-Mode Dimensions RVDd 1.75 cm (0.9-2.6) LA Diam 3.17 cm (1.9-4.0) LVDd 5.71 cm (3.5-5.7) Ao Diam 2.71 cm (2.0-3.7) LVDs 4.57 cm (3.5-5.7) IVSd 1.03 cm (0.6-1.1) PWd 0.43 cm (0.6-1.1) EF (Teich) 40.30% FS 20.00% EDV (Teich) 160.70 mL TAPSE 1.25 (<1.7) ESV (Teich) 95.90 mL LV Diastology E Decel Time 110.00 (160-240 msec) E/A Ratio 3.8 MED E' 3.30 (< 7 cm/sec) E'/MED E' Ratio 31.24 (>14) LAT E' 9.20 (<10 cm/sec) E/LAT E' Ratio 11.21 (>14) Aortic Valve AO Peak GR. 5.60 mmHg Mitral Valve MV E Max Andrew. 103.00 (40-130 cm/s) MV A Velocity 27.00 (40-130 cm/s) E/A Ratio 3.79 MV Decel. Time 110.00 (160-240 ms) MV PHT 32.00 ms Pulmonary Valve PV Peak Velocity 108.00 (50-150 cm/s) Tricuspid Valve TR P. Velocity 244.00 cm/s RAP Estimate 10.00 mmHg RVSP 33.80 mmHg Left Ventricle Left atrium is mildly enlarged, left ventricle mildly dilated, severe left ventricular systolic dysfunction, estimated ejection fraction approximately 30%, left ventricle is globally hypokinetic, there is abnormal septal motion, diastolic parameters are inconclusive. Right Ventricle Right atrium and right ventricle are normal size and contractility, AICD lead seen in right ventricle. Aortic Valve Aortic valve is grossly normal, there is no aortic stenosis or aortic insufficiency. Mitral Valve Mitral valve is grossly normal, there is moderate mitral regurgitation. Tricuspid Valve Tricuspid valve is grossly normal, there is mild tricuspid regurgitation, tricuspid regurgitation jet velocity is inadequate for calculation of the right ventricular systolic pressure. Pulmonic Valve Pulmonic valve is poorly visualized. Great Vessels Aortic root is normal size. Inferior vena cava is normal size with normal inspiratory collapse. Pericardium No significant pericardial effusion noted. Conclusion 1. Mildly dilated left ventricle, severe reduced left ventricular systolic function, estimated ejection fraction 30%, left ventricle is globally hypokinetic, diastolic parameters are inconclusive. There is abnormal septal motion. 2. Moderate mitral and mild tricuspid regurgitation. 3. No significant pericardial effusion noted. 4. Inferior vena cava is normal size with normal inspiratory collapse. Electronically signed by : Christopher Noyola MD 01/14/2022 14:40:43
== END ==
PROVIDERS: PCP Family Medicine; Visit Provider Nurse Practitioner
DX: E11.9 Type 2 diabetes mellitus without complications (principal); E78.2 Mixed hyperlipidemia; F17.200 Nicotine dependence, unspecified, uncomplicated; I07.1 Rheumatic tricuspid insufficiency; I11.0 Hypertensive heart disease with heart failure; I25.10 Atherosclerotic heart disease of native coronary artery without angina pectoris; I27.20 Pulmonary hypertension, unspecified; I34.0 Nonrheumatic mitral (valve) insufficiency; I50.22 Chronic systolic (congestive) heart failure; Z01.810 Encounter for preprocedural cardiovascular examination; Z79.4 Long term (current) use of insulin; Z95.5 Presence of coronary angioplasty implant and graft; Z95.810 Presence of automatic (implantable) cardiac defibrillator
CPT/HCPCS: 93306

== ENCOUNTER → 2022-02-07 12:32 | Outpatient (CLI) | payer MEDICARE, MEDICAID, SELFPAY ==
[2022-02-07 13:25] LABS: Basophils # 0.1 K/mm3 (0-0.2); Basophils % 0.9 % (0.1-2.0); Eosinophils # 0.1 K/mm3 (0.0-0.4); Eosinophils % 0.6 % (0.1-12.0); Hematocrit 36.1 % (37.0-47.0); Hemoglobin 11.6 g/dL (12.2-16.2); Lymphocytes # 2.8 K/mm3 (0.7-4.5); Lymphocytes % 19.6 % (10-50); Mean Corpuscular HGB Conc 32.1 g/dL (31.8-35.4); Mean Corpuscular Volume 81.2 fl (81-99); Mean Platelet Volume 7.4 fl (7.4-10.4); Monocytes # 0.7 K/mm3 (0.1-1.0); Neutrophils # 10.6 K/mm3 (1.8-7.8); Neutrophils % 73.8 % (37.0-80.0); Platelet Count 672 K/mm3 (142-424); Red Blood Count 4.44 M/mm3 (4.20-5.40); White Blood Count 14.3 K/mm3 (4.8-10.8)
[2022-02-07 13:54] LABS: Alanine Aminotransferase 13 U/L (12-78); Albumin Level 4.1 g/dl (3.5-5.0); Albumin/Globulin Ratio 1.3 (1.1-1.8); Alkaline Phosphatase 226 U/L (38-126); Anion Gap 18.7 mEq/L (5-15); Aspartate Amino Transferase 17 U/L (14-36); Bilirubin,Total 0.6 mg/dl (0.2-1.3); Blood Urea Nitrogen 25 mg/dl (7-17); Calcium 10.2 mg/dl (8.4-10.2); Carbon Dioxide 30 mmol/L (22.0-30.0); Chloride 84 mmol/L (98-107); Estimated Glomerular Filt Rate 40 ml/min (>60); GFR (African American) 48 ML/MIN (>60); Globulin 3.1 g/dL (1.3-3.2); Glucose 398 mg/dl (74-100); Potassium 3.7 mmoL/L (3.5-5.1); Sodium 129 mmol/L (136-145); Total Protein,Serum 7.2 g/dl (6.3-8.2)
== END ==
PROVIDERS: PCP Family Medicine; Visit Provider Orthopaedic Surgery
DX: M25.572 Pain in left ankle and joints of left foot (principal); Z01.818 Encounter for other preprocedural examination
CPT/HCPCS: 36415; 80053; 85025

== ENCOUNTER → 2022-02-08 16:30 | Outpatient (CLI) | payer MEDICARE, MEDICAID, SELFPAY ==
[2022-02-08 16:35] LABS: Microscopic, Urine URINE MICROSCOPIC (MICROSCOPIC)
[2022-02-08 17:45] LABS: Appearance,Urine CLOUDY (Clear); Bilirubin,Urine Negative (Negative); Blood, Urine 3+ (Negative); Color,Urine YELLOW (Yellow); Glucose,Urine (UA) 3+ (Negative); Ketones,Urine Negative (Negative); Leukocyte Esterase,Urine 1+ (Negative); Nitrate,Urine Negative (Negative); Protein,Urine 2+ (Negative); Specific Gravity, Urine >= 1.030 (1.005-1.030); Urobilinogen,Urine 0.2 EU/dl (0.2)
[2022-02-08 17:57] LABS: Bacteria,Urine 3+ /lpf; Squamous Epithelial Cell,Urine Occasional #/hpf (0-5); WBC,Urine 20-50 #/hpf (0-3); Yeast,Urine 2+ /lpf
== END ==
PROVIDERS: PCP Family Medicine; Visit Provider Orthopaedic Surgery
DX: Z01.818 Encounter for other preprocedural examination (principal); L08.9 Local infection of the skin and subcutaneous tissue, unspecified; E11.628 Type 2 diabetes mellitus with other skin complications; Z22.322 Carrier or suspected carrier of Methicillin resistant Staphylococcus aureus; Z79.4 Long term (current) use of insulin; R82.90 Unspecified abnormal findings in urine
CPT/HCPCS: 81001; 87086

== ENCOUNTER 2022-02-14 15:02 | Inpatient (IN) | payer MEDICARE, MEDICAID, SELFPAY ==
[2022-02-14] VITALS (25 sets, daily range): BP systolic 91–132; BP diastolic 52–80; PULSE 71–98; RESP 16–18; TEMP 36.2–36.8; O2SAT 90–100; BMI 21.6; BMI 21.4
--- NOTE | 2022-02-14 12:48 | EXP.ANES.I ---
[facility] Anesthesia Record Part I Anesthesia Record I Intake, IV Amount: 1,200 Estimated blood loss (mL): 10 Urine output (mL): 0 Blood Products used (#): none Blood Pressure: 149/73 SaO2: 92 Pulse Rate: 72 Respiratory Rate: 16 Temperature: 98 F Patient is:: Drowsy and Stable Stable to PACU at:: 12:45
--- NOTE | 2022-02-14 12:56 | SUR.PREOP ---
Leela Devine CRNA notified in person of abnormal labs. Verbalized okay.
--- NOTE | 2022-02-14 13:14 | EXP.ANES.CKL ---
[facility] Medical History (Updated 02/14/22 @ 12:20 by Jayda Guallpa RN) Abnormal EKG CAD (coronary artery disease) Chronic systolic heart failure Depression Diabetes mellitus, type 2 Dizziness Dyspnea HHD (hypertensive heart disease) HLD (hyperlipidemia) Hypotension Ischemic cardiomyopathy Pulmonary hypertension, moderate to severe Severe mitral valve regurgitation Severe tricuspid valve regurgitation Stroke Tachycardia Tobacco dependence syndrome Urinary tract infection Surgical History History of cardiac defibrillator placement History of laparoscopic cholecystectomy History of tubal ligation Family History (Updated 02/14/22 @ 12:20 by Jayda Guallpa, RN) Other Diabetes Heart attack Hypertension Social History (Updated 02/14/22 @ 12:20 by Jayda Guallpa RN) Smoking Status: Current every day smoker tobacco type: cigarettes packs per day: 1 years smoked: 20 second hand exposure: No alcohol intake: never substance use type: denies use current occupational status: unemployed Travel in the last 8 weeks: None household members: children housing: house current occupational exposures/hazards: No caffeine: Yes [facility] Anesthesia Checklist Patient Identification Patient Identification: Arm Band Structural Data Admitted From: Home Planned Operative Procedure/s: Left Below the Knee Amputation Consent for Planned Operative Procedure(s) Verified: Yes Verified Documents: Surgical Consent and History and Physical NPO Status Verified Time NPO: 00:00 Additional verifications Anesthesia Reactions: No Hx Blood Transfusions: No Blood Transfusion Reaction: No Airway Assessment C-Spine Mobility Assessed: Yes TMJ Mobility Assessed: Yes Dentition: Edentulous Neurological Assessment Level of Consciousness: Awake and Alert Anesthesia Plan Anesthesia Risk discussed: Yes Anesthesia Plan: Verified ASA Class: IV Anesthesia Type: General
[2022-02-14 13:16] LABS: HCG Qualitative, Serum Negative (Negative)
--- NOTE | 2022-02-14 14:50 | SUR.PHASEI ---
1447 - Spoke w/ Annabelle CasonRN via phone, verified w/ Dr. Diop that patient will need to be admitted per him. 1450 - Spoke w/ A Dee (care management) about admission.
--- NOTE | 2022-02-14 14:52 | SUR.OPER ---
1447 - Spoke w/ Annabelle CasonRN via phone, verified w/ Dr. Diop that patient will need to be admitted per him. 1450 - Spoke w/ Gracie Childs (care management) about admission.
--- NOTE | 2022-02-14 15:20 | P.OP_ITS ---
Date of procedure: 02/14/22 Pre-op Diagnosis:: Left lower extremity foot infection with osteomyelitis Post-op Diagnosis:: Same Procedure performed:: Left below-knee amputation Surgeon:: Cody Diop DO Central Supply Manager(s):: Morelia HUANG MANUFACTURING ENGINEERING TECHNICIAN:: Mahad Dennis Anesthesia: GETA and regional Estimated blood loss (mL): 20 Operative findings:: See dictation Operative note:: Patient is identified preoperatively. Left lower extremity marked yes and my initials. Taken the operative suite. Placed upon operating bed. General anesthesia ministered. Airway secured. Left lower extremity prepped and draped in normal sterile fashion. Once prepped and draped final operative timeout performed to identify proper patient procedure and extremity. Everyone involved the case agreed. No contraindications to beginning. Did receive preoperative antibiotics. Marking pen was used to make planned skin incision for below-knee amputation. The anterior skin marker was used with a long posterior flap secondary to vascular disease. Posterior flap was measured in line with previous below-knee amputation. Tourniquet was inflated after leg was elevated 250 mmHg. Skin F was used incise skin and around previously drawn skin incision lines. Careful dissection was taken down. Attention was brought to the tibia the anterior fascia was cut periosteal elevator was used to raise this area tibia osteotomy was performed 12 cm from the tibial tubercle to match. Other side. Fibula is then cut centimeter and a half proximal to the tibia. Then careful dissection was taken down to identify all neurovascular bundles and vessels. Starting laterally neurovascular bundles and vessels were identified and tagged with hemostats once tagged with hemostats they were coagulated as well as tied with 0 silk ties. All large nerves were pulled on traction and cut at the layer of the skin. Dissection was then taken medially where this was repeated saphenous nerve vessels identified and cut and ligated and tied with silk ties. This was repeated at the posterior distal flap as well. Once this was complete osteotomy of the tibia and fibula were completed and the leg was amputated and passed on the back table. Copious irrigation performed with pulse lavage. Tourniquet was deflated to confirm proper hemostasis. And then attention was brought to closure in layers of the posterior flap. Deep layers closed with 0 Vicryl. Subcutaneous with 2-0 Vicryl. Gave good closure over the amputation site which had been previously beveled with the salt. Subcutaneous closed with 2-0 Vicryl stitch surgical clips in the skin sterile dressing placed in a splint placed over the stump. Patient then had a postoperative block femoral block popliteal block for postop pain. Patient be admitted to the floor for observation anticipated discharge home tomorrow. Condition: stable Disposition: PACU Complications:: None apparent
--- NOTE | 2022-02-14 15:31 | P.PNANES_ITS ---
[facility] Anesthesia Record Part I Anesthesia Record I Intake, IV Amount: 800 Estimated blood loss (mL): 25 Urine output (mL): 0 Blood Products used (#): none Blood Pressure: 117/76 SaO2: 97 Pulse Rate: 86 Respiratory Rate: 16 Temperature: 97.2 F Patient is:: Drowsy and Stable Stable to PACU at:: 15:20
--- NOTE | 2022-02-14 15:43 | SUR.PHASEI ---
3825 - Spoke to electrician apprentice powerhouse about bed assignment, pt will be going to room # 215.
[2022-02-14 15:45] LABS: Coronavirus 19, PCR Not Detected (NotDetected); Influenza A, PCR Not Detected (NotDetected); Influenza B, PCR Not Detected (NotDetected)
[2022-02-14 16:14] LABS: POC Glucose,Bedside 131 (70-110)
--- NOTE | 2022-02-14 16:41 | PC.NURSE ---
patient arrived by stretcher from surgery
--- NOTE | 2022-02-14 17:07 | SUR.PHASEI ---
1641 - Pt transported by staff to floor via stretcher by myself and Quinton Xavier RN. Pt left in stable condition w/ Rea Marroquin RN. VSS. Pt denies pains. No complaints voiced. Bed in lowest position. Call marlo w/in reach.
[2022-02-14 21:55] LABS: POC Glucose,Bedside 277 (70-110)
[2022-02-15 03:42] VITALS: BP 115/66; PULSE 96; RESP 18; TEMP 38; O2SAT 95
--- NOTE | 2022-02-15 05:56 | PC.NURSE ---
pt is alert and oriented x4, s/p bka to lle, anibal bandage cdi to LLE, pt rested well with no complaints of pain through the night, pt complained of pain this am and medicated with po hydrocodone as prescribed, no acute distress, pt with low grade temp 100.4 noted, no other issues or concerns at this time.
--- NOTE | 2022-02-15 07:12 | EXP.ANES.II ---
[facility] Anesthesia Record Part II Anesthesia Record Part II Discharge Time: 16:35 Destination: Medical Surgical Department PACU nurse assessment reviewed?: Yes Patient Condition:: Good Anesthesia Complications:: None Swallowing reflex intact?: Yes Cyanosis?: No Blood Pressure: 106/69 Pulse Rate: 78 Temperature: 97.2 F Mental Status: Alert & Oriented Pain level:: 0 Nausea and/or vomitting:: None Intake, IV Amount: 0
[2022-02-15 07:13] VITALS: BP 106/69; PULSE 78; TEMP 36.2
[2022-02-15 08:00] VITALS: BP 114/64; PULSE 109; RESP 14; TEMP 36.8; O2SAT 95
[2022-02-15 08:24] LABS: POC Glucose,Bedside 239 (70-110)
--- NOTE | 2022-02-15 08:35 | HMH.PHAINT1 ---
Pharmacy Intervention Comments: Medication reconciliation completed via external fill history and patient interview. -Barbara Graves, PharmD Candidate 2022
--- NOTE | 2022-02-15 08:48 | EXP.ORTH.PN ---
Subjective *Date: 02/15/22 *Time: 08:48 Interval history: Patient status post left below-knee amputation. Doing well. No complaints. Pain controlled with medication. Ortho Exam (Inpt) Vital signs and Labs for Last 24 Hours: Temp Pulse Resp BP Pulse Ox 98.2 F 109 H 14 114/64 95 02/15/22 08:00 02/15/22 08:00 02/15/22 08:00 02/15/22 08:00 02/15/22 08:00 Laboratory Results - last 24 hr 02/14/22 12:20: Serum HCG, Qual Negative 02/14/22 15:35: SARS-CoV-2 (PCR) Not detected, Influenza A Untype (PCR) Not detected, Influenza Type B (PCR) Not detected 02/14/22 16:07: POC Glucose 131 H 02/14/22 21:37: POC Glucose 277 H 02/15/22 08:13: POC Glucose 239 H I & O for Labs for Last 24 Hours: Intake & Output 02/12/22 02/13/22 02/14/22 02/15/22 23:59 23:59 23:59 23:59 Intake Total 1040 / 1040 460 / 460 Output Total 0 / 0 Balance 1040 / 1040 460 / 460 Weight 125 lb 2 oz Findings:: Left lower extremity: And splint. Moves hip without difficulty. Dressings not saturated. Assessment and Plan *Assessment and plan (1) Status post below-knee amputation of left lower extremity: Status: Acute Category: Surgical Code(s): Z89.512 - Acquired absence of left leg below knee Plan Will discharge patient home today return to clinic for wound check next week. Keep splint and dressing clean dry and intact.
--- NOTE | 2022-02-15 08:55 | EXP.HPDC ---
General Admission date:: 02/14/22 Discharge date: 02/15/22 *Admission Date: 02/14/22 *Chief complaint: Left lower extremity osteomyelitis status post below-knee potation *History of present illness: 51-year-old female with progressive issues with nonhealing wounds left foot status post several surgeries and osteomyelitis of the foot. Failed multiple attempts to salvage surgery and wished to undergo below-knee amputation. Presented today for below-knee amputation. Underwent below-knee amputation on 02/14/22 without complication. Admitted overnight for observation. Had peripheral block following surgery which is now worn off. Pain controlled with medications orally. [facility] Medical History Abnormal EKG CAD (coronary artery disease) Chronic systolic heart failure Depression Diabetes mellitus, type 2 Dizziness Dyspnea HHD (hypertensive heart disease) HLD (hyperlipidemia) Hypotension Ischemic cardiomyopathy Pulmonary hypertension, moderate to severe Severe mitral valve regurgitation Severe tricuspid valve regurgitation Stroke Tachycardia Tobacco dependence syndrome Urinary tract infection Surgical History History of cardiac defibrillator placement History of laparoscopic cholecystectomy History of tubal ligation Family History Other Diabetes Heart attack Hypertension Social History Smoking Status: Current every day smoker tobacco type: cigarettes packs per day: 1 years smoked: 20 second hand exposure: No alcohol intake: never substance use type: denies use current occupational status: unemployed Travel in the last 8 weeks: None housing: house current occupational exposures/hazards: No caffeine: Yes Review of Systems Review of Systems Review of systems:: pertinent systems reviewed and negative unless documented below Exam Data for Last 24 hours Vital signs and Labs for Last 24 Hours: Temp Pulse Resp BP Pulse Ox 98.2 F 109 H 14 114/64 95 02/15/22 08:00 02/15/22 08:00 02/15/22 08:00 02/15/22 08:00 02/15/22 08:00 Laboratory Results - last 24 hr 02/14/22 12:20: Serum HCG, Qual Negative 02/14/22 15:35: SARS-CoV-2 (PCR) Not detected, Influenza A Untype (PCR) Not detected, Influenza Type B (PCR) Not detected 02/14/22 16:07: POC Glucose 131 H 02/14/22 21:37: POC Glucose 277 H 02/15/22 08:13: POC Glucose 239 H I & O for Last 24 hours: Intake & Output 02/12/22 02/13/22 02/14/22 02/15/22 23:59 23:59 23:59 23:59 Intake Total 1040 / 1040 460 / 460 Output Total 0 / 0 Balance 1040 / 1040 460 / 460 Weight 125 lb 2 oz *Routine HEENT Exam Head: Present normocephalic and atraumatic Eye: Present EOMI ENT: Present mucous membranes moist *Routine Respiratory Exam Respiratory: Absent accessory muscle use *Routine Cardiovascular Exam Cardiovascular: Absent bradycardia or tachycardia *Routine Abdominal Exam Abdominal: Present soft *Routine Rectal Exam Rectal:: deferred *Routine Genitalia Exam Genitalia:: deferred Detailed Lower Extremity Exam Comments: Left lower extremity: Surgical dressing in place. Splint in place protecting stump. Compartments soft. No pain with range of motion of the hip. No drainage. Meds Home Medications and Allergies Home Medications Medication Instructions Recorded Confirmed Type amitriptyline 100 mg tablet 100 mg PO HS Depression/SLEEP 10/22/17 02/14/22 History aspirin 81 mg chewable tablet 81 mg PO DAILY Heart disease 10/02/18 02/14/22 History cyanocobalamin (vitamin B-12) 1,000 mcg PO DAILY Supplement 09/04/19 02/14/22 History 1,000 mcg tablet gabapentin 600 mg tablet 600 mg PO TID neuropathy 09/04/19 02/14/22 History insulin glargine 100 unit/mL 20 unit SQ HS Diabetes 09/16/20 02/14/22 History subcuta
--- NOTE | 2022-02-15 11:35 | HMH.PHAINT1 ---
Pharmacy Intervention Comments: Discharge counseling completed at bedside with the patient. Discussed new medications (hydrocodone/APAP) and continued medications. Overviewed indication for new medication (pain) and possible side effects/mitigation strategies. Patient verbalized understanding and has no questions or concerns at this time.
[2022-02-15 22:26] LABS: POC Glucose,Bedside 254 (70-110)
--- NOTE | 2022-02-17 14:14 | CARE MANAGER ---
Attempted to contact patient related to hospital discharge x2 [facility]
== END 2022-02-15 12:52 | disposition home or self-care (01) | DRG 617 ==
LOC: 2ND 15:02
PROVIDERS: Admitting Provider Orthopaedic Surgery; PCP Family Medicine; Visit Provider Orthopaedic Surgery
PROC: 0Y6J0Z2 Detachment at Left Lower Leg, Mid, Open Approach (ICD-10-PCS; CPT 27880; principal; 2022-02-14 13:15)
DX: E10.69 Type 1 diabetes mellitus with other specified complication (principal); I50.22 Chronic systolic (congestive) heart failure; M86.9 Osteomyelitis, unspecified; I11.0 Hypertensive heart disease with heart failure; Z79.4 Long term (current) use of insulin; I25.10 Atherosclerotic heart disease of native coronary artery without angina pectoris; I25.5 Ischemic cardiomyopathy; I08.1 Rheumatic disorders of both mitral and tricuspid valves; I27.20 Pulmonary hypertension, unspecified; Z95.810 Presence of automatic (implantable) cardiac defibrillator; F17.210 Nicotine dependence, cigarettes, uncomplicated; Z89.511 Acquired absence of right leg below knee; F32.A Depression, unspecified
CPT/HCPCS: 27880; 82962; 84703; 88307; 88311; 96374; C9803; J2405; U0003; U0005

== ENCOUNTER → 2022-02-21 12:45 | Outpatient (CLI) | payer MEDICARE, MEDICAID, SELFPAY | END | disposition home or self-care (01) | PROVIDERS: PCP Family Medicine; Visit Provider Orthopaedic Surgery | DX: S52.501A Unspecified fracture of the lower end of right radius, initial encounter for closed fracture (principal); L08.9 Local infection of the skin and subcutaneous tissue, unspecified; E11.628 Type 2 diabetes mellitus with other skin complications; Z79.4 Long term (current) use of insulin; Z45.2 Encounter for adjustment and management of vascular access device; Z22.322 Carrier or suspected carrier of Methicillin resistant Staphylococcus aureus | CPT/HCPCS: G0463 ==

== ENCOUNTER 2022-03-03 06:38 | Day surgery (SDC) | payer MEDICARE, MEDICAID, SELFPAY ==
[2022-03-03] VITALS (14 sets, daily range): BP systolic 82–115; BP diastolic 50–64; PULSE 78–90; RESP 15–20; TEMP 36.6; O2SAT 92–100; BMI 20.7
--- NOTE | 2022-03-03 06:55 | PC.NURSE ---
dr hale spoke with dr pereira is coming to assess pt
--- NOTE | 2022-03-03 08:08 | PC.NURSE ---
at bedside speaking with patient and family member
--- NOTE | 2022-03-03 08:08 | HMH.EDWNDL ---
Discharge Plan Disposition Patient Disposition: Still a Patient Prescriptions Prescriptions: No Action atorvastatin 40 mg tablet 40 mg PO DAILY insulin glargine 100 unit/mL solution 20 unit SQ HS cholecalciferol (vitamin D3) 25 mcg (1,000 unit) capsule 25 mcg PO DAILY sacubitril-valsartan 24-26 mg tablet 1 tab PO BID Qty: 180 3RF ticagrelor 90 mg tablet 90 mg PO BID Qty: 60 11RF carvedilol 12.5 mg tablet 12.5 mg PO BID Qty: 180 3RF furosemide 40 mg tablet 40 mg PO BID PRN (Reason: Edema) Qty: 60 5RF hydrocodone-acetaminophen 5-325 mg tablet 1 tab PO Q4H PRN (Reason: post op pain) Qty: 42 0RF amitriptyline 100 MG tablet 100 mg PO HS insulin lispro 100 unit/mL cartridge 5 unit SQ TID aspirin 81 MG tablet,chewable 81 mg PO DAILY cyanocobalamin (vitamin B-12) 1,000 MCG tablet 1,000 mcg PO DAILY gabapentin 600 MG tablet 600 mg PO TID Referrals Follow up/Referrals: Hugh Maldonado MD [Primary Care Provider] - See instructions Cody Diop DO [Staff Physician] - See instructions Clinical Impressions Clinical Impression: S/P BKA (below knee amputation) Instructions Patient Instructions: DI for Laceration Repair Discharge ED Provider: Kumar Bird Wound/Laceration HPI <Kumar Bird MD - Last Filed: 03/03/22 08:18> General Chief Complaint: Wound/Laceration Stated Complaint: L below knee amputee, incision opened Time Seen by Provider: 03/03/22 07:15 Mode of Arrival: Wheelchair Source of Information: Patient, Relative and Medical Record Limitations: No Limitations Description of Symptoms (Recalled from ER Triage Doc. by RN): pt states had a lt BKA on 02/14 and had aggie removed yesterday. while pt was sleeping incision busted open History of Present Illness HPI narrative: pt with recent lt bka and was seen by surg yesterday with aggie removed and this am noted surg incision site open Onset (ago): hour(s) Extremity Location: Left: lower leg Context: other (post -op) Related Data Home Medications Medication Instructions Recorded Confirmed amitriptyline 100 mg tablet 100 mg PO HS Depression/SLEEP 10/22/17 03/02/22 aspirin 81 mg chewable tablet 81 mg PO DAILY Heart disease 10/02/18 03/02/22 cyanocobalamin (vitamin B-12) 1,000 mcg PO DAILY Supplement 09/04/19 03/02/22 1,000 mcg tablet gabapentin 600 mg tablet 600 mg PO TID neuropathy 09/04/19 03/02/22 insulin glargine 100 unit/mL 20 unit SQ HS Diabetes 09/16/20 03/02/22 subcutaneous solution insulin lispro 100 unit/mL 5 unit SQ TID Diabetes 09/16/20 03/02/22 subcutaneous cartridge atorvastatin 40 mg tablet 40 mg PO DAILY hld 11/15/21 03/02/22 cholecalciferol (vitamin D3) 25 25 mcg PO DAILY Supplement 01/10/22 03/02/22 mcg (1,000 unit) capsule Previous Rx's Medication Instructions Recorded sacubitril 24 mg-valsartan 26 mg 1 tab PO BID bp #180 tabs 01/24/22 tablet carvedilol 12.5 mg tablet 12.5 mg PO BID htn #180 tabs 01/28/22 ticagrelor 90 mg tablet 90 mg PO BID Heart disease/blood 01/28/22 thinner #60 tabs furosemide 40 mg tablet 40 mg PO BID PRN Edema #60 tabs 02/15/22 hydrocodone 5 mg-acetaminophen 325 1 tab PO Q4H PRN post op pain #42 02/15/22 mg tablet tabs Allergies Allergy/AdvReac Type Severity Reaction Status Date / Time No Known Allergies Allergy Verified 03/02/22 10:45 [facility] <Kumar Bird MD - Last Filed: 03/03/22 08:18> [facility] Disclaimer: The information contained in this section may have been updated after the patient was seen, as this information can be updated by other users. Medical History Abnormal ankle brachial index (ALAN) Abnormal EKG Acute urinary tract infection Arthralgia of ankle Bacteremia due to Escherichia coli CAD (coronary artery disease) Campylobacter diarrhea Cellulitis of left foot Chronic systolic heart failure Depression Dermatitis Di
--- NOTE | 2022-03-03 08:13 | PC.NURSE ---
no new orders or instructions via dr hale
--- NOTE | 2022-03-03 08:27 | PC.NURSE ---
dr hale back to the bedside- plan is to take pt to the OR
--- NOTE | 2022-03-03 08:31 | PC.NURSE ---
Patient's clothing items are in personal belonging's bag with patient' family member. All of patient's jewelry is in patient's purse
[2022-03-03 09:16] LABS: Microscopic, Urine URINE MICROSCOPIC (MICROSCOPIC); Urine Pregnancy, HCG Qual. Negative (Negative)
[2022-03-03 09:20] LABS: Appearance,Urine CLEAR (Clear); Bilirubin,Urine Negative (Negative); Blood, Urine 1+ (Negative); Color,Urine YELLOW (Yellow); Glucose,Urine (UA) 3+ (Negative); Ketones,Urine Negative (Negative); Leukocyte Esterase,Urine 2+ (Negative); Nitrate,Urine Negative (Negative); PH,Urine 6.5 (5.0-8.5); Protein,Urine 1+ (Negative); Urobilinogen,Urine 0.2 EU/dl (0.2)
[2022-03-03 09:34] LABS: Bacteria,Urine Trace /lpf; Hyaline Casts,Urine Occasional #/lpf (0); WBC,Urine 20-50 #/hpf (0-3)
[2022-03-03 09:35] LABS: Yeast,Urine Occasional /lpf
[2022-03-03 12:07] LABS: POC Glucose,Bedside 429 (70-110)
--- NOTE | 2022-03-03 13:19 | EXP.OP.NOTE ---
Date of procedure: 03/03/22 Pre-op Diagnosis:: Wound dehiscence left below-knee amputation wound. Post-op Diagnosis:: Same Procedure performed:: Irrigation and debridement with wound closure left lower extremity. Surgeon:: Cody Diop DO PRODUCT MARKETER:: Nila Mendez Anesthesia: MAC Estimated blood loss (mL): 25 Clinical Note:: 51-year-old female had recently taken out the aggie from her below-knee amputation she reports that in her bed she hit the stump on the side table or her bed causing the wound to open presented to the emergency room I evaluated her she needed irrigation and debridement and closure of this wound and would be performed today. Operative findings:: No tristan abscess or pus present Operative note:: Patient identified preoperatively left lower extreme marked yes my initials transferred operative suite placed upon operating bed sedation given left lower extremity prepped and draped normal sterile fashion with a Betadine prep. Wound had opened over the BKA stump. Irrigation of the wound was performed rongeur and sharp dissection was taken to remove scar tissue and debrided down to healthy tissue there were no tristan abscess or pus however cultures were taken at the area of the open wound. 3 L saline copiously irrigated with the pulse lavage. All soft tissue cleaned viable tissue intact then incision closed in layers deep with 0 Vicryl suture subcutaneous 2-0 Vicryl suture surgical clips in the skin for closure sterile dressing placed patient taken to recovery stable condition Condition: stable Disposition: PACU Complications:: None apparent
--- NOTE | 2022-03-03 13:21 | SUR.PHASEII ---
FSBS 240, Cem Mendez notified by Shiloh Pandya RN, no new orders.
[2022-03-03 13:28] LABS: POC Glucose,Bedside 240 (70-110)
== END 2022-03-03 14:16 | disposition home or self-care (01) ==
LOC: ER 08:17 → SDC 03-04 16:14
PROVIDERS: Emergency Medicine; PCP Family Medicine; Visit Provider Orthopaedic Surgery
PROC: (CPT 13160; principal; 2022-03-03 12:00)
DX: T87.81 Dehiscence of amputation stump (principal); I11.0 Hypertensive heart disease with heart failure; I50.22 Chronic systolic (congestive) heart failure; N39.0 Urinary tract infection, site not specified; I25.5 Ischemic cardiomyopathy; F17.210 Nicotine dependence, cigarettes, uncomplicated; E11.621 Type 2 diabetes mellitus with foot ulcer; L97.519 Non-pressure chronic ulcer of other part of right foot with unspecified severity; I25.118 Atherosclerotic heart disease of native coronary artery with other forms of angina pectoris; Z79.4 Long term (current) use of insulin; Z79.899 Other long term (current) drug therapy; I27.20 Pulmonary hypertension, unspecified; E11.69 Type 2 diabetes mellitus with other specified complication; M86.172 Other acute osteomyelitis, left ankle and foot
CPT/HCPCS: 13160; 81001; 81025; 82962; 87070; 87075; 87077; 87086; 87186; 87205; 96374; J0131

== ENCOUNTER 2022-03-15 12:48 | Inpatient (IN) | payer MEDICARE, MEDICAID, SELFPAY ==
[2022-03-15] VITALS (31 sets, daily range): BP systolic 73–131; BP diastolic 34–98; PULSE 63–104; RESP 12–23; TEMP 36.2–36.8; O2SAT 95–100; BMI 20.7
[2022-03-15 13:47] LABS: Coronavirus 19, PCR Not Detected (NotDetected); Influenza A, PCR Not Detected (NotDetected); Influenza B, PCR Not Detected (NotDetected)
[2022-03-15 13:47] LABS: Chloride 79 mmol/L (98-107); Sodium 125 mmol/L (136-145)
[2022-03-15 13:49] LABS: Alanine Aminotransferase 35 U/L (12-78); Albumin Level 3.5 g/dl (3.5-5.0); Albumin/Globulin Ratio 0.8 (1.1-1.8); Alkaline Phosphatase 218 U/L (38-126); Aspartate Amino Transferase 63 U/L (14-36); Bilirubin,Total 0.9 mg/dl (0.2-1.3); Blood Urea Nitrogen 24 mg/dl (7-17); Carbon Dioxide 35 mmol/L (22.0-30.0); Estimated Glomerular Filt Rate 44 ml/min (>60); GFR (African American) 53 ML/MIN (>60); Globulin 4.2 g/dL (1.3-3.2); Total Protein,Serum 7.7 g/dl (6.3-8.2)
[2022-03-15 13:50] LABS: Calcium 9.8 mg/dl (8.4-10.2)
[2022-03-15 13:52] LABS: Anion Gap 13.7 mEq/L (5-15); Creatinine Clearance Estimated 47 mL/min (50-200)
[2022-03-15 13:53] LABS: Glucose 442 mg/dl (74-100); Potassium 2.7 mmoL/L (3.5-5.1)
[2022-03-15 13:55] LABS: Lactic Acid 2.1 mmol/L (0.7-2.1)
--- NOTE | 2022-03-15 13:55 | PC.NURSE ---
LAB CALLED WITH CRITICALS: POTASSIUM 2.7 AND GLUCOSE 442 NOTIFIED
--- NOTE | 2022-03-15 14:05 | XR_ITS ---
FINAL REPORT CLINICAL HISTORY: possible stump infection FINDINGS: Two views of the left tibia-fibula demonstrate no acute fracture or dislocation. There has been below the knee amputation. There are overlying skin aggie. There is soft tissue air that may represent postoperative change. There are no bony erosions. IMPRESSION: Soft tissue air may represent postoperative change but soft tissue infection cannot be excluded. No bony erosion. Reviewed, Interpreted and Dictated by Checo Campbell III, MD Transcribed by Medardo Jean-Baptiste Authenticated and [facility]
--- NOTE | 2022-03-15 14:06 | HMH.EDGENADL ---
Discharge Plan Disposition Patient Disposition: Admitted As Inpatient Condition: Critical Clinical Impressions Clinical Impression: Septic shock, Acute hypokalemia, Urinary tract infection, Hyponatremia, Acute hyperglycemia, LAINEY (acute kidney injury), Abscess of left leg, Gangrene of lower extremity Discharge ED Provider: [facility] HPI General Chief complaint: Extremity Problem,Nontraumatic Stated complaint: Low BP, Physican Referral Time Seen by Provider: 03/15/22 13:59 Mode of Arrival: Wheelchair Source of Information: Patient Limitations: No Limitations Description of Symptoms (Recalled from ER Triage Doc. by RN): Pt sent from dr. de paz office r/t low bp, poor color, concern for sepsis. Pt had a L BKA on 02/14, is currently on antibiotics r/t post op infection. Pt was in dr. de paz office today a follow up. Pt has a previous R BKA-pressure sore noted on stump. Pts family reports pt has been lethargic in nature. Pt alert, oriented to person/place History of Present Illness HPI narrative: The patient is sent from Dr. Diop's office. She was there for follow-up of a recent left BKA surgery on 02/14/2022 complicated by wound dehiscence requiring operative debridement, irrigation, wound closure on 03/03/2022. Noted to have low blood pressure and felt to have possible sepsis, therefore sent to the emergency department. Patient complains of pain in her left lower extremity stump, denies any other complaints. Family reports lethargy. No fever at home. She is currently on antibiotics, cephalexin. Denies URI symptoms. Denies vomiting or diarrhea. States she has been eating and drinking. Related Data Home Medications Medication Instructions Recorded Confirmed amitriptyline 100 mg tablet 100 mg PO HS Depression/SLEEP 10/22/17 03/15/22 aspirin 81 mg chewable tablet 81 mg PO DAILY Heart disease 10/02/18 03/15/22 cyanocobalamin (vitamin B-12) 1,000 mcg PO DAILY Supplement 09/04/19 03/15/22 1,000 mcg tablet gabapentin 600 mg tablet 600 mg PO TID neuropathy 09/04/19 03/15/22 insulin glargine 100 unit/mL 20 unit SQ HS Diabetes 09/16/20 03/15/22 subcutaneous solution insulin lispro 100 unit/mL 5 unit SQ TID Diabetes 09/16/20 03/15/22 subcutaneous cartridge atorvastatin 40 mg tablet 40 mg PO DAILY hld 11/15/21 03/15/22 cholecalciferol (vitamin D3) 25 25 mcg PO DAILY Supplement 01/10/22 03/15/22 mcg (1,000 unit) capsule cephalexin 500 mg capsule 500 mg PO QID post op infection 03/15/22 03/15/22 Previous Rx's Medication Instructions Recorded sacubitril 24 mg-valsartan 26 mg 1 tab PO BID bp #180 tabs 01/24/22 tablet carvedilol 12.5 mg tablet 12.5 mg PO BID htn #180 tabs 01/28/22 ticagrelor 90 mg tablet 90 mg PO BID Heart disease/blood 01/28/22 thinner #60 tabs furosemide 40 mg tablet 40 mg PO BID PRN Edema #60 tabs 02/15/22 hydrocodone 5 mg-acetaminophen 325 1 tab PO Q4H PRN post op pain #42 02/15/22 mg tablet tabs hydrocodone 5 mg-acetaminophen 325 1 tab PO Q4H PRN post op pain #30 03/03/22 mg tablet tabs Allergies Allergy/AdvReac Type Severity Reaction Status Date / Time No Known Allergies Allergy Verified 03/15/22 12:10 [facility] Disclaimer: The information contained in this section may have been updated after the patient was seen, as this information can be updated by other users. Medical History Abnormal ankle brachial index (ALAN) Abnormal EKG Acute urinary tract infection Arthralgia of ankle Bacteremia due to Escherichia coli CAD (coronary artery disease) Campylobacter diarrhea Cellulitis of left foot Chronic systolic heart failure Depression Dermatitis Diabetes mellitus, type 2 Diabetic infection of right foot Diabetic ulcer of right foot associated with diabetes mellitus due to underlying condition, with fat layer exposed Dizziness Dyspnea Elevated troponin Encounter for pre-operative cardiovascular clearanc
--- NOTE | 2022-03-15 14:08 | XR_ITS ---
FINAL REPORT CLINICAL HISTORY: low bp COMPARISON: October 2021 FINDINGS: SINGLE VIEW CHEST Cardiomegaly is noted. A left subclavian ICD is noted. No acute pulmonary abnormality is identified. The bony thorax is intact. IMPRESSION: No acute cardiopulmonary process identified. Reviewed, Interpreted and Dictated by Checo Campbell III, MD Transcribed by Medardo Jean-Baptiste Authenticated and [facility]
[2022-03-15 14:11] LABS: Basophils # 0.1 K/mm3 (0-0.2); Basophils % 0.3 % (0.1-2.0); Eosinophils % 0.1 % (0.1-12.0); Hematocrit 26.5 % (37.0-47.0); Hemoglobin 8.6 g/dL (12.2-16.2); Lymphocytes # 2.2 K/mm3 (0.7-4.5); Lymphocytes % 5.8 % (10-50); Mean Corpuscular HGB Conc 32.3 g/dL (31.8-35.4); Mean Corpuscular Hemoglobin 25.1 pg (27.0-31.2); Mean Corpuscular Volume 77.9 fl (81-99); Mean Platelet Volume 7.2 fl (7.4-10.4); Monocytes # 1.2 K/mm3 (0.1-1.0); Monocytes % 3.1 % (1.7-9.3); Neutrophils # 33.8 K/mm3 (1.8-7.8); Neutrophils % 90.7 % (37.0-80.0); Platelet Count 944 K/mm3 (142-424); Red Blood Count 3.41 M/mm3 (4.20-5.40); Red Cell Distribution Width 16.7 % (11.5-17.5); White Blood Count 37.3 K/mm3 (4.8-10.8)
[2022-03-15 14:12] LABS: MANUAL DIFFERENTIAL MANUAL DIFFERENTIAL (MANUAL DIFF)
[2022-03-15 14:20] LABS: Creatine Kinase 1015 U/L (30-135)
[2022-03-15 14:24] LABS: Eosinophils % 1 % (0-3); Hypochromasia 1+; Lymphocytes % 10 % (10-50); Microcytosis 1+; Monocytes % 3 % (2-9); Neutrophils % 86 % (42-76); Platelet Estimate Marked Increase; Total Cells Counted 100
[2022-03-15 14:25] LABS: Acetone, Serum (Rapid) None Detected (None Detect); C-Reactive Protein 319.9 mg/L (0-4)
[2022-03-15 14:30] LABS: CKMB Relative Index 0.2 U/L (0-4.0); Creatine Kinase MB 1.8 ng/ml (0.0-2.03)
[2022-03-15 14:34] LABS: Troponin I 0.03 ng/ml (0.00-0.034)
[2022-03-15 14:38] LABS: Erythrocyte Sedimentation Rate 135 mm/hr (0-20)
--- NOTE | 2022-03-15 14:38 | EXP.PHA.CONS ---
Pharmacy Consult Date: 03/15/22 Time: 14:38 Referring provider: DR. PHAM Reason for Consult:: VANCOMYCIN DOSING Allergies Allergy/AdvReac Type Severity Reaction Status Date / Time No Known Allergies Allergy Verified 03/15/22 12:10 Home Medications Medication Instructions Recorded Confirmed Type amitriptyline 100 mg tablet 100 mg PO HS Depression/SLEEP 10/22/17 03/15/22 History aspirin 81 mg chewable tablet 81 mg PO DAILY Heart disease 10/02/18 03/15/22 History cyanocobalamin (vitamin B-12) 1,000 mcg PO DAILY Supplement 09/04/19 03/15/22 History 1,000 mcg tablet gabapentin 600 mg tablet 600 mg PO TID neuropathy 09/04/19 03/15/22 History insulin glargine 100 unit/mL 20 unit SQ HS Diabetes 09/16/20 03/15/22 History subcutaneous solution insulin lispro 100 unit/mL 5 unit SQ TID Diabetes 09/16/20 03/15/22 History subcutaneous cartridge atorvastatin 40 mg tablet 40 mg PO DAILY hld 11/15/21 03/15/22 History cholecalciferol (vitamin D3) 25 25 mcg PO DAILY Supplement 01/10/22 03/15/22 History mcg (1,000 unit) capsule sacubitril 24 mg-valsartan 26 mg 1 tab PO BID bp #180 tabs 01/24/22 03/15/22 Rx tablet carvedilol 12.5 mg tablet 12.5 mg PO BID htn #180 tabs 01/28/22 03/15/22 Rx ticagrelor 90 mg tablet 90 mg PO BID Heart disease/blood 01/28/22 03/15/22 Rx thinner #60 tabs furosemide 40 mg tablet 40 mg PO BID PRN Edema #60 tabs 02/15/22 03/15/22 Rx hydrocodone 5 mg-acetaminophen 325 1 tab PO Q4H PRN post op pain #42 02/15/22 03/15/22 Rx mg tablet tabs cephalexin 500 mg capsule 500 mg PO QID 10 days #40 caps 03/03/22 03/15/22 Rx hydrocodone 5 mg-acetaminophen 325 1 tab PO Q4H PRN post op pain #30 03/03/22 03/15/22 Rx mg tablet tabs cephalexin 500 mg capsule 500 mg PO QID 10 days #40 caps 03/08/22 03/15/22 Rx New Prescriptions to Start Prescriptions: Height: 1.65 m Weight: 56.699 kg Laboratory Results:: Laboratory Results - last 24 hr 03/15/22 13:10: SARS-CoV-2 (PCR) Not detected, Influenza A Untype (PCR) Not detected, Influenza Type B (PCR) Not detected 03/15/22 13:14: WBC 37.3 H*, RBC 3.41 L, Hgb 8.6 L, Hct 26.5 L, MCV 77.9 L, MCH 25.1 L, MCHC 32.3, RDW 16.7, Plt Count 944 H*, MPV 7.2 L, Neut % (Auto) 90.7 H, Lymph % (Auto) 5.8 L, [place] % (Auto) 3.1, Eos % (Auto) 0.1, Baso % (Auto) 0.3, Neut # (Auto) 33.8 H, Lymph # (Auto) 2.2, [place] # (Auto) 1.2 H, Eos # (Auto) 0.0, Baso # (Auto) 0.1, Total Counted 100, Neutrophils % (Manual) 86 H, Lymphocytes % (Manual) 10, Monocytes % (Manual) 3, Eosinophils % (Manual) 1, Platelet Estimate Marked increase, Hypochromasia 1+, Microcytosis 1+ 03/15/22 13:14: Sodium 125 L, Potassium 2.7 L*, Chloride 79 L, Carbon Dioxide 35 H, Anion Gap 13.7, BUN 24 H, Creatinine 1.30 H, Estimated Creat Clear 47, Estimated GFR 44 L, Est GFR ( Amer) 53 L, Glucose 442 H*, Calcium 9.8, Total Bilirubin 0.9, AST 63 H, ALT 35, Alkaline Phosphatase 218 H, Total Protein 7.7, Albumin 3.5, Globulin 4.2 H, Albumin/Globulin Ratio 0.8 L 03/15/22 13:14: Lactate 2.1 03/15/22 13:14: C-Reactive Protein 319.9 H 03/15/22 13:14: Total Creatine Kinase 1015 H*, CK-MB (CK-2) 1.8, CK-MB (CK-2) Rel Index 0.2, Troponin I 0.03 03/15/22 13:14: Acetone Level None detected Medical History: Medical History (Updated 03/08/22 @ 15:33 by DAVID Vegas) Abnormal ankle brachial index (ALAN) Abnormal EKG Acute urinary tract infection Arthralgia of ankle Bacteremia due to Escherichia coli CAD (coronary artery disease) Campylobacter diarrhea Cellulitis of left foot Chronic systolic heart failure Depression Dermatitis Diabetes mellitus, type 2 Diabetic infection of right foot Diabetic ulcer of right foot associated with diabetes mellitus due to underlying condition, with fat layer exposed Dizziness Dyspnea Elevated troponin Encounter for pre-operative cardiovascular clearance Encounter for wound care Fever Foot abscess, right Gangrene of right foot HHD (hypertensive heart disease) History of CVA (cerebrovas
--- NOTE | 2022-03-15 14:40 | PC.NURSE ---
Rounded on patient. Changed patient's position. Patient stated she is more comfortable.
--- NOTE | 2022-03-15 14:45 | ECG_ITS ---
APPROVED REPORT Exam: Resting ECG HR:94 bpm ECG Measurements Heart Rate 94 AXES ME 148 P 43 QRSd 145 QRS -20 QT 437 T 132 QTc 489 Conclusion SINUS RHYTHM INTRAVENTRICULAR CONDUCTION DELAY [130+ ms QRS DURATION] ABNORMAL ECG UNCONFIRMED REPORT Electronically signed by : Kennedy Selby MD 03/15/2022 20:08:24
--- NOTE | 2022-03-15 14:45 | PC.NURSE ---
CAROLINE BRASWELL speaking with dr. hale
--- NOTE | 2022-03-15 15:01 | HMH.ITSTN ---
called and spoke with Merle, patient getting saline bolus started by nurse Ramona horton now. said to wait 20-30 minutes
[2022-03-15 15:18] LABS: Microscopic, Urine URINE MICROSCOPIC (MICROSCOPIC)
[2022-03-15 15:22] LABS: Appearance,Urine CLOUDY (Clear); Blood, Urine 1+ (Negative); Color,Urine YELLOW (Yellow); Glucose,Urine (UA) 1+ (Negative); Ketones,Urine TRACE (Negative); Leukocyte Esterase,Urine 2+ (Negative); Nitrate,Urine Negative (Negative); Protein,Urine 1+ (Negative); Specific Gravity, Urine 1.015 (1.005-1.030)
[2022-03-15 15:33] LABS: Bilirubin,Urine 1+ (Negative)
[2022-03-15 15:53] LABS: Bacteria,Urine 2+ /lpf; Squamous Epithelial Cell,Urine Occasional #/hpf (0-5); WBC,Urine TNTC #/hpf (0-3)
--- NOTE | 2022-03-15 15:59 | PC.NURSE ---
on the phone with
--- NOTE | 2022-03-15 16:00 | CT_ITS ---
PROCEDURE INFORMATION: Exam: CTA Left Lower Extremity With Contrast Exam date and time: 03/15/2022 4:26 PM Age: 51 years old Clinical indication: Condition or disease; Other: Infected bka; Prior surgery; Surgery date: <1 month; Surgery type: Left bka TECHNIQUE: Imaging protocol: Computed tomographic angiography of the Left lower extremity with contrast. 3D rendering (Not supervised by radiologist): MIP and/or 3D reconstructed images were created by the technologist. Radiation optimization: All CT scans at this facility use at least one of these dose optimization techniques: automated exposure control; mA and/or kV adjustment per patient size (includes targeted exams where dose is matched to clinical indication); or iterative reconstruction. Contrast material: ISOVUE 370; Contrast volume: 120 ml; Contrast route: INTRAVENOUS (IV); COMPARISON: US ARTERIAL LOWER EXT REST 10/19/2021 12:55 PM FINDINGS: Left femoral/popliteal arteries: Superficial femoral artery of the left leg is occluded. Left infrapopliteal arteries: Small but have no occlusion. Bones/joints: A 1 cm gas bubble is present in the medullary space of the distal left tibia. No periosteal reaction or cortical bone destruction or present in the left tibia and fibula. No left knee joint effusion is seen. No bone lesions are present in the femur. Soft tissues: A 4 cm soft tissue mass in the medial stump of the left below-knee amputation has numerous gas bubbles that extend proximally along the proximal shaft of the tibia. Subcutaneous soft tissue edema is present throughout the BKA stump. Soft tissue gas is no closer than 8 cm distal to the tibial plateau. No soft tissue masses, fluid collections, or soft tissue gas are present in the left thigh. Other findings: Profundus femoris artery has no stenosis. The distal SFA and popliteal artery reconstitute via collateral vessels near Rik's canal. IMPRESSION: 1. Abscess in the distal left lower leg stump. Widespread soft tissue gas is present indicating gangrene. 2. No cortical bone destruction is evident in the distal left tibia and fibula stumps. A 1 cm gas bubble is present in the medullary space of the distal left tibia. 3. No left knee abnormalities. No abnormalities in the left femur. 4. Left superficial femoral artery is occluded and reconstitutes near Rik's canal via collateral vessels.
--- NOTE | 2022-03-15 16:03 | PC.NURSE ---
on the phone with
--- NOTE | 2022-03-15 16:45 | PC.NURSE ---
dimension warehouse supervisor notified of admission
[2022-03-15 16:48] LABS: ABG Base Excess 3.3 mmol/L (-2.4-2.3); ABG Oxygen Saturation 96 % (90-100); ABG PCO2 31.7 mmhg (35.0-45.0); ABG PH 7.53 mmol/L (7.35-7.45); ABG PO2 83.5 mmhg (80-100); ABG TCO2 26.9 mmhg (23-27)
[2022-03-15 16:49] LABS: Allen's Test Non Applicable; Oxygen ROOM AIR %; Source Right Brachial
[2022-03-15 17:37] LABS: Reflex Lactic Add Lactic Reflex
--- NOTE | 2022-03-15 17:59 | PC.NURSE ---
notified ER MD of pt bp87/53 (62), pt has finished sepsis IVF bolus. ER MD gave verbal order for levophed drip
--- NOTE | 2022-03-15 18:03 | PC.NURSE ---
warehouse operations associate aware pt will need step down bed r/t levophed drip
--- NOTE | 2022-03-15 18:29 | PC.NURSE ---
NOTIFIED OR TEAM OF PENDING SURGERY. SPOKE WITH SANDY ROSEN AND ENRIQUE.
--- NOTE | 2022-03-15 18:32 | PC.NURSE ---
SPOKE WITH ER TO NOTIFY THEM THAT I HAVE SPOKE WITH THE OR TEAM TO NOTIFY THEM OF SURGERY.
[2022-03-15 18:37] LABS: Lactic Acid Follow Up (RFLX 1) 1.8 mmol/L (0.7-2.1)
--- NOTE | 2022-03-15 19:06 | EXP.ORTH.CON ---
History of Present Illness *Admission Date: 03/15/22 *Reason for visit:: Infected left lower extremity below-knee amputation *History of present illness: Ms. Marinelli was seen in the clinic today not feeling well. She was in the clinic for follow-up after dehiscence of left lower extremity below-knee amputation stump. Present to clinic for wound check today. Overall was not feeling well. Hypotensive. Sent to the emergency room from the clinic. White count was elevated. Found to have UTI. CT angiogram and CT of the lower extremity revealed soft tissue gas around the below-knee amputation stump. [facility] Disclaimer: The information contained in this section may have been updated after the patient was seen, as this information can be updated by other users. Medical History Abnormal ankle brachial index (ALAN) Abnormal EKG Acute urinary tract infection Arthralgia of ankle Bacteremia due to Escherichia coli CAD (coronary artery disease) Campylobacter diarrhea Cellulitis of left foot Chronic systolic heart failure Depression Dermatitis Diabetes mellitus, type 2 Diabetic infection of right foot Diabetic ulcer of right foot associated with diabetes mellitus due to underlying condition, with fat layer exposed Dizziness Dyspnea Elevated troponin Encounter for pre-operative cardiovascular clearance Encounter for wound care Fever Foot abscess, right Gangrene of right foot HHD (hypertensive heart disease) History of CVA (cerebrovascular accident) HLD (hyperlipidemia) Hypokalemia Hyponatremia Hypotension Ischemic cardiomyopathy Left foot infection Left shift MRSA (methicillin resistant staph aureus) culture positive Nail dystrophy Non-healing wound NYHA Class II cardiovascular function Osteomyelitis Postoperative dehiscence of skin wound Postoperative wound dehiscence Pulmonary hypertension, moderate to severe Right foot ulcer Sepsis Severe mitral valve regurgitation Severe tricuspid valve regurgitation Stroke Tachycardia Tobacco dependence syndrome Type 2 diabetes mellitus Unstable angina pectoris Urinary tract infection Surgical History History of cardiac defibrillator placement History of laparoscopic cholecystectomy History of tubal ligation Family History Other Diabetes Heart attack Hypertension Social History Smoking Status: Current every day smoker tobacco type: cigarettes packs per day: 1 years smoked: 20 second hand exposure: No alcohol intake: never substance use type: denies use current occupational status: unemployed Travel in the last 8 weeks: None housing: house current occupational exposures/hazards: No caffeine: Yes Review of Systems Constitutional Constitutional: Denies headache(s) ENT Ears, Nose, Mouth, and Throat: Denies headache(s) *Musculoskeletal Musculoskeletal: Denies numbness *Neurologic Neurologic: Denies headache(s) and Denies numbness Meds Home Medications and Allergies Home Medications Medication Instructions Recorded Confirmed Type amitriptyline 100 mg tablet 100 mg PO HS Depression/SLEEP 10/22/17 03/15/22 History aspirin 81 mg chewable tablet 81 mg PO DAILY Heart disease 10/02/18 03/15/22 History cyanocobalamin (vitamin B-12) 1,000 mcg PO DAILY Supplement 09/04/19 03/15/22 History 1,000 mcg tablet gabapentin 600 mg tablet 600 mg PO TID neuropathy 09/04/19 03/15/22 History insulin glargine 100 unit/mL 20 unit SQ HS Diabetes 09/16/20 03/15/22 History subcutaneous solution insulin lispro 100 unit/mL 5 unit SQ TID Diabetes 09/16/20 03/15/22 History subcutaneous cartridge atorvastatin 40 mg tablet 40 mg PO DAILY hld 11/15/21 03/15/22 History cholecalciferol (vitamin D3) 25 25 mcg PO DAILY Supplement 01/10/22 03/15/22 History mcg (
--- NOTE | 2022-03-15 19:15 | PC.NURSE ---
surgery staff at to transport pt to OR
--- NOTE | 2022-03-15 19:21 | PC.NURSE ---
PT GOING UP FOR SURGERY
--- NOTE | 2022-03-15 20:30 | SUR.OPER ---
193- neema smith monitoring the Levophed drip at this time. Medication set at 4ml/hr. neema Smith CTM
--- NOTE | 2022-03-15 21:02 | EXP.OP.NOTE ---
Date of procedure: 03/15/22 Pre-op Diagnosis:: Left lower extremity infected below-knee amputation stump with gas gangrene Post-op Diagnosis:: Same Procedure performed:: Irrigation and sharp debridement left lower extremity stump with removal of devitalized tissue and application of wound VAC Surgeon:: Cody Diop DO [employer] OPERATOR:: Other Anesthesia: GETA Estimated blood loss (mL): 50 Operative findings:: Infected devitalized muscle distal aspect left below-knee amputation stump Operative note:: Patient was identified preoperatively in the emergency room for left lower extremity marked yes my initials she taken directly from the emergency room to preop area for urgent irrigation and debridement of left lower extremity after CT scan revealed gaseous tissue findings of the left lower extremity below-knee amputation stump. Patient presented to the operating room in urgent fashion for debridement. Patient was taken the operating room placed bilaterally bed general anesthesia ministered airway secured left lower extremity stump prepped and draped normal sterile fashion once prepped and draped final operative timeout performed to identify proper patient procedure and extremity. Everyone involved the case agreed. There is no counter indication beginning. She did receive antibiotics in the emergency room. Vancomycin was running at the time of surgery. Left lower stump had aggie removed and knife was used to open incision at the below-knee amputation there was evidence of devitalized muscle tissue posterior compartment and infection tracking along the tibial shaft of the amputation stump. Care was taken to remove all devitalized muscle tissue tourniquet was not used during the procedure and tissue was debrided back to viable live bleeding muscle. The amputation stump was shortened by Duane along with the fibula. This was necessary to debride area of intramedullary area of the bone as well as the skin on the anterior aspect of the stump being devitalized and have to be removed. Copious irrigation of the wound was repeated several times. And rongeur was used to remove devitalized tissue along with knife for sharp debridement. Once all devitalized tissue that was visible was removed irrigation repeated again the skin edges were cleaned to bleeding skin edges and the wound VAC dressing was placed him over the stump to give good seal of the wound without leaks. Patient then waken anesthesia taken recovery in stable condition. Patient be admitted to stepdown floor upstairs for close monitoring. Patient was requiring blood pressure support with Levophed upon arrival to the operating room. Blood pressure remained stable without increasing dose of Levophed during the surgery. Condition: stable Disposition: PACU Complications:: None apparent
--- NOTE | 2022-03-15 21:14 | P.PNANES_ITS ---
[facility] Anesthesia Record Part I Anesthesia Record I Intake, IV Amount: 250 Estimated blood loss (mL): 25 Urine output (mL): 0 Blood Pressure: 91/59 SaO2: 99 Pulse Rate: 99 Respiratory Rate: 22 Temperature: 97.1 F Patient is:: Drowsy and Stable Stable to PACU at:: 20:55
--- NOTE | 2022-03-15 21:28 | PC.NURSE ---
PT ARRIVED TO THE FLOOR VIA STRETCHER AT THIS TIME
[2022-03-15 21:29] LABS: POC Glucose,Bedside 404 (70-110)
--- NOTE | 2022-03-15 21:37 | EXP.ACUTE.PN ---
Subjective *Date: 03/15/22 *Time: 21:37 Interval history: I saw the patient this evening immediately after her stump revision when she returned from the PACU.The following is the ER narrative on admission: The patient is sent from Dr. Diop's office.? She was there for follow-up of a recent left BKA surgery on 02/14/2022 complicated by wound dehiscence requiring operative debridement, irrigation, wound closure on 03/03/2022.? Noted to have low blood pressure and felt to have possible sepsis, therefore sent to the emergency department.? Patient complains of pain in her left lower extremity stump, denies any other complaints.? Family reports lethargy.? No fever at home.? She is currently on antibiotics, cephalexin. Denies URI symptoms.? Denies vomiting or diarrhea.? States she has been eating and drinking. See Dr. Diop's operative report. There was fairly significant revision of the infected stump. The patient is still on Levophed. She looks quite dehydrated and dry. Medical Exam Vital signs and Labs for Last 24 Hours: Vital Signs Temp Pulse Pulse Resp BP BP Pulse Ox 03/15/22 21:10 22 03/15/22 19:58 97.9 F 90 16 111/61 03/15/22 19:00 90 15 111/61 100 03/15/22 18:30 99 H 14 122/71 100 03/15/22 18:00 70 23 98/48 L 100 03/15/22 17:43 94 H 14 87/53 L 100 03/15/22 17:33 90 12 85/46 L 100 03/15/22 17:30 87 15 73/42 L 100 03/15/22 17:00 90 15 86/40 L 100 03/15/22 16:46 87 19 123/62 100 03/15/22 16:00 94 H 12 90/61 L 100 03/15/22 15:30 95 H 17 126/64 100 03/15/22 15:00 92 H 16 97/78 L 100 03/15/22 14:30 96 H 17 104/77 L 96 03/15/22 13:57 98 H 13 96/42 L 100 03/15/22 13:30 63 12 87/50 L 98 03/15/22 13:08 67 17 90/67 L 99 03/15/22 12:49 97.9 F 104 H 18 90/67 L 96 03/15/22 21:16 97.1 F L 99 H 22 91/59 L Intake and Output 03/15/22 03/15/22 03/16/22 11:59 19:59 03:59 Intake Total 1999 250 / 2250 Balance 1999 250 / 2250 Intake: Intake, Total IV Amount 1999 250 / 2250 Other: Weight 125 lb Patient Weight 03/16/22 11:59 Weight 125 lb Laboratory Results - last 24 hr 03/15/22 13:10: SARS-CoV-2 (PCR) Not detected, Influenza A Untype (PCR) Not detected, Influenza Type B (PCR) Not detected 03/15/22 13:14: WBC 37.3 H*, RBC 3.41 L, Hgb 8.6 L, Hct 26.5 L, MCV 77.9 L, MCH 25.1 L, MCHC 32.3, RDW 16.7, Plt Count 944 H*, MPV 7.2 L, Neut % (Auto) 90.7 H, Lymph % (Auto) 5.8 L, [place] % (Auto) 3.1, Eos % (Auto) 0.1, Baso % (Auto) 0.3, Neut # (Auto) 33.8 H, Lymph # (Auto) 2.2, [place] # (Auto) 1.2 H, Eos # (Auto) 0.0, Baso # (Auto) 0.1, Total Counted 100, Neutrophils % (Manual) 86 H, Lymphocytes % (Manual) 10, Monocytes % (Manual) 3, Eosinophils % (Manual) 1, Platelet Estimate Marked increase, Hypochromasia 1+, Microcytosis 1+ 03/15/22 13:14: Sodium 125 L, Potassium 2.7 L*, Chloride 79 L, Carbon Dioxide 35 H, Anion Gap 13.7, BUN 24 H, Creatinine 1.30 H, Estimated Creat Clear 47, Estimated GFR 44 L, Est GFR ( Amer) 53 L, Glucose 442 H*, Calcium 9.8, Total Bilirubin 0.9, AST 63 H, ALT 35, Alkaline Phosphatase 218 H, Total Protein 7.7, Albumin 3.5, Globulin 4.2 H, Albumin/Globulin Ratio 0.8 L 03/15/22 13:14: Lactate 2.1 03/15/22 13:14: ESR 135 H 03/15/22 13:14: C-Reactive Protein 319.9 H 03/15/22 13:14: Total Creatine Kinase 1015 H*, CK-MB (CK-2) 1.8, CK-MB (CK-2) Rel Index 0.2, Troponin I 0.03 03/15/22 13:14: Acetone Level None detected 03/15/22 14:37: Specimen Source Right brachial, O2 % Room air, ABG pH 7.53 H, ABG pCO2 31.7 L, ABG pO2 83.5, ABG HCO3 26.0, ABG Total CO2 26.9, ABG O2 Saturation 96, ABG Base Excess 3.3 H, [place] Test Non applicable 03/15/22 15:10: Urine Color Yellow, Urine Appearance Cloudy, Urine pH 6.0, Ur Specific [place] 1.015, Urine Protein 1+, Urine Glucose (UA) 1+, Urine Ketones Trace, Urine Blood 1+, Urine Nitrate Negative, Urine Bilirubin 1+ A, Urine Urobil
--- NOTE | 2022-03-15 21:47 | SUR.PHASEI ---
Severo mcneil crna at pt bedside monitoring levophed drip for the pacu period and transition to pt room. Rate is 4mg/hr at this time.
--- NOTE | 2022-03-15 21:48 | SUR.PHASEI ---
late entry 2119- pt FSBS- [id number]. neema Smith notified, no further orders 2123- detailed report called to roxann parsons on med surg. 2125- pt left in stable conditon with roxann parsons in room 216. All VSS, bed in lowest position with side rails up. neema Smith and at bedside. Wound vac and leary catheter draining.
[2022-03-16] VITALS (46 sets, daily range): BP systolic 82–119; BP diastolic 32–84; PULSE 70–105; RESP 14–18; TEMP 36.2–38.4; O2SAT 84–100; BMI 26.9; BMI 26.7
[2022-03-16 01:54] LABS: POC Glucose,Bedside 423 (70-110)
--- NOTE | 2022-03-16 04:17 | PC.NURSE ---
Pt resting in bed. Has c/o discomfort upon arrival to floor but has since then declined any pain medicine. DSG to RLE with some drainage noted. Pt remains on Levophed gtt @ 3 mcg/min. Wounds noted to (R) fingers and (R) stump. Medications administered per may. Call light within reach.
[2022-03-16 06:29] LABS: POC Glucose,Bedside 166 (70-110)
--- NOTE | 2022-03-16 06:52 | PC.NURSE ---
Levophed infusing 2 mcg/min
--- NOTE | 2022-03-16 09:15 | EXP.ORTH.PN ---
Subjective *Date: 03/16/22 *Time: 08:50 Interval history: Ms. Marinelli is a 51-year-old female patient who underwent irrigation and debridement of her residual left lower extremity with removal of devitalized tissue and application of wound VAC yesterday evening 03/15/[address] Diop. Today the patient is postop day #1. This morning the patient is lying comfortably in bed. She continues to remain sleepy and lethargic, but is able to answer my questions appropriately. She reports that the pain in her left residual limb is improved. She states that she was able to sleep some last night. She has not yet had any breakfast as she says that she does not have any appetite. She denies any episodes of nausea or vomiting. She denies any other symptoms or concerns at this time. Ortho Exam (Inpt) Vital signs and Labs for Last 24 Hours: Temp Pulse Resp BP Pulse Ox 98.0 F 96 H 17 103/55 L 94 L 03/16/22 04:10 03/16/22 06:00 03/16/22 06:00 03/16/22 06:00 03/16/22 06:00 Laboratory Results - last 24 hr 03/15/22 13:10: SARS-CoV-2 (PCR) Not detected, Influenza A Untype (PCR) Not detected, Influenza Type B (PCR) Not detected 03/15/22 13:14: WBC 37.3 H*, RBC 3.41 L, Hgb 8.6 L, Hct 26.5 L, MCV 77.9 L, MCH 25.1 L, MCHC 32.3, RDW 16.7, Plt Count 944 H*, MPV 7.2 L, Neut % (Auto) 90.7 H, Lymph % (Auto) 5.8 L, [place] % (Auto) 3.1, Eos % (Auto) 0.1, Baso % (Auto) 0.3, Neut # (Auto) 33.8 H, Lymph # (Auto) 2.2, [place] # (Auto) 1.2 H, Eos # (Auto) 0.0, Baso # (Auto) 0.1, Total Counted 100, Neutrophils % (Manual) 86 H, Lymphocytes % (Manual) 10, Monocytes % (Manual) 3, Eosinophils % (Manual) 1, Platelet Estimate Marked increase, Hypochromasia 1+, Microcytosis 1+ 03/15/22 13:14: Sodium 125 L, Potassium 2.7 L*, Chloride 79 L, Carbon Dioxide 35 H, Anion Gap 13.7, BUN 24 H, Creatinine 1.30 H, Estimated Creat Clear 47, Estimated GFR 44 L, Est GFR ( Amer) 53 L, Glucose 442 H*, Calcium 9.8, Total Bilirubin 0.9, AST 63 H, ALT 35, Alkaline Phosphatase 218 H, Total Protein 7.7, Albumin 3.5, Globulin 4.2 H, Albumin/Globulin Ratio 0.8 L 03/15/22 13:14: Lactate 2.1 03/15/22 13:14: ESR 135 H 03/15/22 13:14: C-Reactive Protein 319.9 H 03/15/22 13:14: Total Creatine Kinase 1015 H*, CK-MB (CK-2) 1.8, CK-MB (CK-2) Rel Index 0.2, Troponin I 0.03 03/15/22 13:14: Acetone Level None detected 03/15/22 14:37: Specimen Source Right brachial, O2 % Room air, ABG pH 7.53 H, ABG pCO2 31.7 L, ABG pO2 83.5, ABG HCO3 26.0, ABG Total CO2 26.9, ABG O2 Saturation 96, ABG Base Excess 3.3 H, [place] Test Non applicable 03/15/22 15:10: Urine Color Yellow, Urine Appearance Cloudy, Urine pH 6.0, Ur Specific [place] 1.015, Urine Protein 1+, Urine Glucose (UA) 1+, Urine Ketones Trace, Urine Blood 1+, Urine Nitrate Negative, Urine Bilirubin 1+ A, Urine Urobilinogen 1.0, Ur Leukocyte Esterase 2+ A, Urine RBC 3-5, Urine WBC Tntc, Ur Squamous Epith Cells Occasional, Urine Bacteria 2+ 03/15/22 17:55: Lactate 1.8 03/15/22 21:22: POC Glucose 404 H* 03/15/22 21:55: POC Glucose 423 H* 03/16/22 05:42: POC Glucose 166 H I & O for Labs for Last 24 Hours: Intake & Output 03/13/22 03/14/22 03/15/22 03/16/22 23:59 23:59 23:59 23:59 Intake Total 2250 / 2250 1446 / 1446 Output Total 1050 / 1050 Balance 2250 / 1500 396 / 396 Weight 125 lb 107 lb 7 oz Microbiology Reports for the Last 24 Hours: Microbiology 03/15/22 14:04 Leg,Left - Wound Gram Stain - Final 03/15/22 14:04 Leg,Left - Wound Wound Culture - Preliminary 03/15/22 20:00 Leg,Left - Left Gram Stain - Final Head: Present normocephalic and atraumatic Eyes: Present as per HPI ENT: Present normal exam Neck: Present normal inspection, full ROM and trachea midline; Absent lymphadenopathy Respiratory: Present normal respiratory effort, able to speak in complete sentences and symmetric chest movement; Absent accessory muscle use Cardiac: Present Reg Rate and Rhythm GI: Present soft; Absent tenderness Comment:: Upon examinat
[2022-03-16 10:04] LABS: Basophils # 0.1 K/mm3 (0-0.2); Basophils % 0.2 % (0.1-2.0); Eosinophils # 0.6 K/mm3 (0.0-0.4); Eosinophils % 1.9 % (0.1-12.0); Lymphocytes # 1.6 K/mm3 (0.7-4.5); Lymphocytes % 5.1 % (10-50); Mean Corpuscular Hemoglobin 25.4 pg (27.0-31.2); Mean Corpuscular Volume 74.8 fl (81-99); Mean Platelet Volume 7.2 fl (7.4-10.4); Monocytes # 1.1 K/mm3 (0.1-1.0); Monocytes % 3.3 % (1.7-9.3); Neutrophils # 28.7 K/mm3 (1.8-7.8); Neutrophils % 89.4 % (37.0-80.0); Platelet Count 767 K/mm3 (142-424); Red Blood Count 2.45 M/mm3 (4.20-5.40); White Blood Count 32.1 K/mm3 (4.8-10.8)
[2022-03-16 10:14] LABS: Alanine Aminotransferase 24 U/L (12-78); Albumin Level 2.7 g/dl (3.5-5.0); Albumin/Globulin Ratio 0.8 (1.1-1.8); Alkaline Phosphatase 168 U/L (38-126); Anion Gap 7.5 mEq/L (5-15); Aspartate Amino Transferase 47 U/L (14-36); Bilirubin,Total 0.5 mg/dl (0.2-1.3); Blood Urea Nitrogen 14 mg/dl (7-17); Calcium 8.1 mg/dl (8.4-10.2); Carbon Dioxide 28 mmol/L (22.0-30.0); Chloride 101 mmol/L (98-107); Creatinine Clearance Estimated 65 mL/min (50-200); Estimated Glomerular Filt Rate 76 ml/min (>60); GFR (African American) 92 ML/MIN (>60); Globulin 3.6 g/dL (1.3-3.2); Glucose 126 mg/dl (74-100); Sodium 134 mmol/L (136-145); Total Protein,Serum 6.3 g/dl (6.3-8.2)
--- NOTE | 2022-03-16 10:55 | EXP.CARD.CON ---
History of Present Illness History of Present Illness Consult date: 03/16/22 Requesting physician: Hugh Maldonado Consult reason: congestive heart failure and known to you Chief complaint: infected LLE/BKA History of present illness: This is a 51-year-old white female who presented to see orthopedics yesterday for follow-up on a wound dehiscence to her left lower extremity below the knee amputation stump. The patient was not feeling well when she presented to the clinic yesterday. She was hypotensive and instructed to go to the emergency department. In the emergency department the patient was found to have an elevated white count and a UTI. CT of the left lower extremity revealed soft tissue gas around the stump of the left BKA consistent with gangrene. The patient was taken to the operating room yesterday and had irrigation and debridement of the left lower extremity stump and removal of devitalized tissue. She also had a wound VAC placed. This morning the patient denies any chest pain or pressure. She denies any shortness of breath. She denies any fever, chills, nausea, vomiting, diarrhea, PND or orthopnea. The patient is somewhat lethargic this morning when I am talking to her which I presume is from anesthesia/pain meds. The patient has a known history of coronary artery disease status post stenting, systolic congestive heart failure status post AICD placement and hyperlipidemia. [facility] Disclaimer: The information contained in this section may have been updated after the patient was seen, as this information can be updated by other users. Medical History (Updated 03/16/22 @ 11:04 by Yeimi Bliss APRN) Abnormal ankle brachial index (ALAN) Abnormal EKG Acute urinary tract infection Anemia Arthralgia of ankle Bacteremia due to Escherichia coli CAD (coronary artery disease) Campylobacter diarrhea Cellulitis of left foot Chronic systolic heart failure Depression Dermatitis Diabetes mellitus, type 2 Diabetic infection of right foot Diabetic ulcer of right foot associated with diabetes mellitus due to underlying condition, with fat layer exposed Dizziness Dyspnea Elevated troponin Encounter for pre-operative cardiovascular clearance Encounter for wound care Fever Foot abscess, right Gangrene of right foot HHD (hypertensive heart disease) History of CVA (cerebrovascular accident) HLD (hyperlipidemia) Hypokalemia Hyponatremia Hypotension Ischemic cardiomyopathy Left foot infection Left shift MRSA (methicillin resistant staph aureus) culture positive Nail dystrophy Non-healing wound NYHA Class II cardiovascular function Osteomyelitis Postoperative dehiscence of skin wound Postoperative wound dehiscence Pulmonary hypertension, moderate to severe Right foot ulcer Sepsis Severe mitral valve regurgitation Severe tricuspid valve regurgitation Stroke Tachycardia Tobacco dependence syndrome Type 2 diabetes mellitus Unstable angina pectoris Urinary tract infection Surgical History (Updated 03/16/22 @ 11:02 by Yeimi Bliss APRN) History of cardiac defibrillator placement History of laparoscopic cholecystectomy History of right below knee amputation History of tubal ligation Status post below-knee amputation of left lower extremity Family History Other Diabetes Heart attack Hypertension Social History (Updated 03/16/22 @ 01:14 by Angi Bill RN) Smoking Status: Current every day smoker tobacco type: cigarettes packs per day: 1 years smoked: 20 second hand exposure: No alcohol intake: never substance use type: denies use current occupational status: unemployed Travel in the last 8 weeks: None housing: house current occupational exposures/hazards: No caffeine: Yes Review of Systems Review of Systems Review of systems:: pertinent systems reviewed and negative unless documented below Constitutional Constitutional: Reports syst
[2022-03-16 11:05] LABS: Hematocrit 18.3 % (37.0-47.0)
[2022-03-16 11:06] LABS: Potassium 2.5 mmoL/L (3.5-5.1)
[2022-03-16 11:07] LABS: MANUAL DIFFERENTIAL MANUAL DIFFERENTIAL (MANUAL DIFF)
--- NOTE | 2022-03-16 11:07 | PC.NURSE ---
Called Dr. Maldonado's office to report critical lab values. Spoke to [place] about 2.5 potassium, 6.2 hemoglobin, and 18.3 hematocrit
[2022-03-16 11:33] LABS: POC Glucose,Bedside 165 (70-110)
--- NOTE | 2022-03-16 11:51 | HMH.PHAINT1 ---
Pharmacy Intervention Comments: MEDICATION RECONCILIATION COMPLETED ON PATIENT USING EXTERNAL FILL HISTORY FROM PHARMACY AND LIST FROM [facility] OFFICE. -ZENY OLIVERD
--- NOTE | 2022-03-16 12:30 | PC.NURSE ---
Dr. Clark office called and said to transfuse 3 units on hold. Type and screen and transfusion order entered, lab notified
--- NOTE | 2022-03-16 12:53 | EXP.HP ---
History of Present Illness *Admission Date: 03/15/22 *History of present illness: Ms. Marinelli is a 51-year-old female with multiple medical complications. She was seen in Dr. Diop's office yesterday and was not feeling well. The following is the ER narrative: The patient is sent from Dr. Diop's office.? She was there for follow-up of a recent left BKA surgery on 02/14/2022 complicated by wound dehiscence requiring operative debridement, irrigation, wound closure on 03/03/2022.? Noted to have low blood pressure and felt to have possible sepsis, therefore sent to the emergency department.? Patient complains of pain in her left lower extremity stump, denies any other complaints.? Family reports lethargy.? No fever at home.? She is currently on antibiotics, cephalexin. Denies URI symptoms.? Denies vomiting or diarrhea.? States she has been eating and drinking. Her white blood cell count was found to be elevated and she was found to have a UTI. She had a CT angiogram and the CT of the lower extremity revealed soft tissue gas around the below the knee amputation stump. She was taken to the OR for revision of the infected stump. Dr. Maldonado saw her when she returned from the PACU. She had to be placed on Levophed.? This am she is very lethargic and does open her eyes to questions but cannot answer many of them. [facility] Disclaimer: The information contained in this section may have been updated after the patient was seen, as this information can be updated by other users. Medical History Abnormal ankle brachial index (ALAN) Abnormal EKG Acute urinary tract infection Anemia Arthralgia of ankle Bacteremia due to Escherichia coli CAD (coronary artery disease) Campylobacter diarrhea Cellulitis of left foot Chronic systolic heart failure Depression Dermatitis Diabetes mellitus, type 2 Diabetic infection of right foot Diabetic ulcer of right foot associated with diabetes mellitus due to underlying condition, with fat layer exposed Dizziness Dyspnea Elevated troponin Encounter for pre-operative cardiovascular clearance Encounter for wound care Fever Foot abscess, right Gangrene of right foot HHD (hypertensive heart disease) History of CVA (cerebrovascular accident) HLD (hyperlipidemia) Hypokalemia Hyponatremia Hypotension Ischemic cardiomyopathy Left foot infection Left shift MRSA (methicillin resistant staph aureus) culture positive Nail dystrophy Non-healing wound NYHA Class II cardiovascular function Osteomyelitis Postoperative dehiscence of skin wound Postoperative wound dehiscence Pulmonary hypertension, moderate to severe Right foot ulcer Sepsis Severe mitral valve regurgitation Severe tricuspid valve regurgitation Stroke Tachycardia Tobacco dependence syndrome Type 2 diabetes mellitus Unstable angina pectoris Urinary tract infection Surgical History History of cardiac defibrillator placement History of laparoscopic cholecystectomy History of right below knee amputation History of tubal ligation Status post below-knee amputation of left lower extremity Family History Diabetes Heart attack Hypertension Social History Smoking Status: Current every day smoker tobacco type: cigarettes packs per day: 1 years smoked: 20 second hand exposure: No alcohol intake: never substance use type: denies use current occupational status: unemployed Travel in the last 8 weeks: None housing: house current occupational exposures/hazards: No caffeine: Yes Review of Systems Review of Systems Review of systems:: unable to obtain Constitutional Constitutional: Denies headache(s) and Reports weakness ENT Ears, Nose, Mouth, and Throat: Denies headache(s) *Musculoskeletal Musculoskeletal: Denies numbness *Neurolog
[2022-03-16 13:37] LABS: Hypochromasia 1+; Lymphocytes % 11 % (10-50); Microcytosis 1+; Neutrophils % 89 % (42-76); Platelet Estimate Marked Increase; Total Cells Counted 100
[2022-03-16 13:42] LABS: Hemoglobin 6.2 g/dL (12.2-16.2)
--- NOTE | 2022-03-16 14:15 | PC.NURSE ---
Called Rahel in lab, stated blood should be ready in an hour.
--- NOTE | 2022-03-16 15:54 | P.PNANES_ITS ---
[facility] Anesthesia Record Part II Anesthesia Record Part II Discharge Time: 21:25 Destination: Medical Surgical Department PACU nurse assessment reviewed?: Yes Patient Condition:: Good Anesthesia Complications:: None Swallowing reflex intact?: Yes Cyanosis?: No Blood Pressure: 116/84 Pulse Rate: 94 Temperature: 97.2 F Mental Status: Alert & Oriented Pain level:: 3 Nausea and/or vomitting:: None Intake, IV Amount: 0
[2022-03-16 16:30] LABS: POC Glucose,Bedside 136 (70-110)
--- NOTE | 2022-03-16 18:54 | PC.NURSE ---
Paged Dr. Selby, notified of temperature 100.4. Said to follow blood transfusion protocol
--- NOTE | 2022-03-16 19:07 | PC.NURSE ---
Dr. Maldonado paged and stated not to stop blood transfusion as he doesnt think its a reaction from the blood, tylenol given
--- NOTE | 2022-03-16 19:35 | PC.NURSE ---
Blood transfusion stopped from 1845 until 190 while waiting to speak with MD's about fever.
--- NOTE | 2022-03-16 19:36 | PC.NURSE ---
Levophed stopped at 1840 as systolic blood pressures consistently in low 100 and map above 60. Patient remains sinus tach with heart rate between 100-103. No other changes noted. No crackles in lungs noted.
--- NOTE | 2022-03-16 19:41 | PC.NURSE ---
Patient able to tolerate ice chips but not able to tolerate swallowing cardizen capsules. NG had to be placed back to suction about 20-30 minutes after administering cardizem. Patient shows pvc's on monitor, not frequent and singular. Dr. Simmons notified. VS remain stable and patient remains on 5LNC with oxygen saturations between 91-93%. Abdomen is soft, tender, bowel sounds hypoactive. Patient states hernia is at top of midline incision site. Area is soft and non tender. Midline incision clean dry and intact, EDGAR drain 40 ml out on shift.
[2022-03-17] VITALS (14 sets, daily range): BP systolic 92–144; BP diastolic 54–79; PULSE 87–123; RESP 16–22; TEMP 37–37.6; O2SAT 85–96; BMI 26.4
[2022-03-17 00:50] LABS: POC Glucose,Bedside 194 (70-110)
[2022-03-17 03:08] LABS: Hematocrit 29.4 % (37.0-47.0)
[2022-03-17 03:13] LABS: Hemoglobin 10.2 g/dL (12.2-16.2)
--- NOTE | 2022-03-17 04:22 | PC.NURSE ---
Pt has slept at intervals this shift. Alert to self. Tolerated blood transfusions this shift. Has remained afebrile. BP declined and Levophed was restarted at 2300. Has remained on 2mcg/min. Titrated to 1 mcg/min @ 0400. DSG to LLE in place with wound vac. F/C draining to bedside with cloudy, yellow urine.Call light within reach. Safety measures in place.
[2022-03-17 06:03] LABS: POC Glucose,Bedside 151 (70-110)
[2022-03-17 07:23] LABS: Chloride 105 mmol/L (98-107); Sodium 135 mmol/L (136-145)
[2022-03-17 07:24] LABS: Potassium 3.1 mmoL/L (3.5-5.1)
[2022-03-17 07:26] LABS: Blood Urea Nitrogen 11 mg/dl (7-17); Creatinine Clearance Estimated 74 mL/min (50-200); Estimated Glomerular Filt Rate 89 ml/min (>60); GFR (African American) 108 ML/MIN (>60)
[2022-03-17 07:27] LABS: Anion Gap 9.1 mEq/L (5-15); Calcium 7.4 mg/dl (8.4-10.2); Carbon Dioxide 24 mmol/L (22.0-30.0); Chol/HDL Ratio 6.3 (1-3.5); Cholesterol 88 mg/dl (140-200); Glucose 145 mg/dl (74-100); HDL Cholesterol 14 mg/dl (40-60); Triglycerides 131 mg/dl (30-150); VLDL Cholesterol 26 mg/dL (0-40)
[2022-03-17 07:31] LABS: Basophils # 0.1 K/mm3 (0-0.2); Basophils % 0.4 % (0.1-2.0); Eosinophils # 0.1 K/mm3 (0.0-0.4); Eosinophils % 0.3 % (0.1-12.0); Hematocrit 31.3 % (37.0-47.0); Hemoglobin 10.4 g/dL (12.2-16.2); Lymphocytes # 1.8 K/mm3 (0.7-4.5); Lymphocytes % 6.5 % (10-50); Mean Corpuscular HGB Conc 33.3 g/dL (31.8-35.4); Mean Corpuscular Hemoglobin 27.4 pg (27.0-31.2); Mean Corpuscular Volume 82.4 fl (81-99); Mean Platelet Volume 7.8 fl (7.4-10.4); Monocytes # 1.2 K/mm3 (0.1-1.0); Monocytes % 4.5 % (1.7-9.3); Neutrophils % 88.3 % (37.0-80.0); Platelet Count 522 K/mm3 (142-424); Red Cell Distribution Width 16.3 % (11.5-17.5); White Blood Count 27.2 K/mm3 (4.8-10.8)
[2022-03-17 07:38] LABS: Direct LDL Cholesterol 41.58 mg/dL (100-129)
[2022-03-17 07:41] LABS: MANUAL DIFFERENTIAL MANUAL DIFFERENTIAL (MANUAL DIFF)
[2022-03-17 08:03] LABS: Lymphocytes % 9 % (10-50); Monocytes % 5 % (2-9); Neutrophils % 86 % (42-76); Platelet Estimate Slight Increase; RBC Morphology Normal; Total Cells Counted 100
--- NOTE | 2022-03-17 08:19 | EXP.ACUTE.PN ---
Subjective *Date: 03/17/22 *Time: 08:19 Interval history: Patient is feeling better today. She is awake and alert and able to answer questions. She is trying to eat breakfast. She denies any pain. Medical Exam Vital signs and Labs for Last 24 Hours: Vital Signs Temp Pulse Pulse Resp BP BP Pulse Ox 03/16/22 20:00 90 03/17/22 04:00 90 03/17/22 00:00 90 03/17/22 04:00 98.9 F 97 H 16 118/65 91 L 03/17/22 02:25 98.6 F 87 16 105/57 L 92 L 03/17/22 01:25 98.7 F 89 16 127/62 94 L 03/17/22 00:25 98.7 F 97 H 16 95/59 L 87 L 03/17/22 00:10 98.6 F 97 H 17 92/54 L 85 L 03/16/22 23:55 98.0 F 97 H 17 89/53 L 84 L 03/16/22 23:40 98.9 F 95 H 18 88/39 L 96 03/16/22 23:35 98.6 F 90 18 95/40 L 97 03/16/22 23:30 98.9 F 86 18 89/52 L 97 03/16/22 23:25 98.6 F 84 18 92/49 L 96 03/16/22 23:23 98.6 F 91 H 17 97/55 L 94 L 03/16/22 22:30 98.5 F 96 H 17 104/55 L 92 L 03/16/22 21:30 98.1 F 97 H 17 107/59 L 92 L 03/16/22 20:45 98.1 F 96 H 17 109/58 L 95 03/16/22 19:45 98.0 F 99 H 18 110/53 L 99 03/16/22 19:30 98.0 F 100 H 17 104/52 L 100 03/16/22 19:15 98.0 F 100 H 17 113/66 96 03/16/22 19:00 100.8 F H 100 H 18 108/62 L 98 03/16/22 18:55 101.1 F H 101 H 18 108/80 L 97 03/16/22 18:28 98.0 F 97 H 18 109/56 L 98 03/16/22 12:00 99.4 F 03/16/22 18:50 100.4 F H 101 H 18 104/58 L 98 03/16/22 18:45 100.4 F H 101 H 18 104/58 L 98 03/16/22 18:36 98.2 F 99 H 17 113/57 L 98 03/16/22 17:28 98.2 F 101 H 18 113/51 L 98 03/16/22 16:00 100 H 03/16/22 16:58 98.1 F 102 H 17 105/51 L 96 03/16/22 16:00 102 H 18 101/57 L 94 L 03/16/22 15:58 98.2 F 102 H 17 101/57 L 94 L 03/16/22 15:43 98.2 F 97 H 18 106/52 L 95 03/16/22 15:00 100 H 18 99/50 L 96 03/16/22 14:00 99 H 17 97/50 L 99 03/16/22 13:00 104 H 18 88/64 L 95 03/16/22 12:00 103 H 17 85/46 L 95 03/16/22 11:00 102 H 18 93/56 L 99 03/16/22 10:04 105 H 18 82/56 L 100 03/16/22 09:00 96 H 18 118/46 L 99 03/16/22 15:28 98.0 F 99 H 17 108/56 L 98 03/16/22 15:13 98.1 F 100 H 18 113/43 L 97 03/16/22 15:08 98.2 F 100 H 18 108/54 L 97 03/16/22 12:00 100 H 03/16/22 15:03 98.1 F 100 H 17 85/58 L 98 03/16/22 14:58 98.0 F 99 H 18 93/50 L 96 03/16/22 14:47 98.9 F 98 H 18 94/52 L 97 03/16/22 15:55 97.2 F L 94 H 116/84 Intake and Output 03/16/22 03/17/22 03/17/22 19:59 03:59 11:59 Intake Total 2396 / 4021 550 / 4021 1075 / 4021 Output Total 1075 / 1475 250 / 1475 150 / 1475 Balance 1321 / 2546 300 / 2546 925 / 2546 Intake: Intake, Oral Amount 360 / 360 Intake, Other Amount 50 / 50 Red Blood Cells Unit 50 / 50 [id number] Intake, Total IV Amount 1786 / 2861 1075 / 2861 0.9 % Sodium Chloride 1,000 ml 337 / 1402 1065 / 1402 @ 100 mls/hr IV .Q10H QUEENIE Rx#: [id number] 0.9 % Sodium Chloride 1,000 ml 1099 / 1099 @ 150 mls/hr IV .Q6H40M QUEENIE Rx# :[id number] Cefepime HCl 2 gm In 0.9 % 100 / 100 Sodium Chloride 100 ml @ 200 mls/hr IV Q12H QUEENIE Rx#:[id number] Norepinephrine Bitartrate 8 mg 10 / 10 In Dextrose 5 % in Water 250 ml @ 2 MCG/MIN 3.87 mls/hr IV . Q24H QUEENIE Rx#:[id number] Vancomycin HCl 1,000 mg In 0.9 250 / 250 % Sodium Chloride 250 ml @ 125 mls/hr IV Q24H QUEENIE Rx#:[id number] Intake (Blood Product) Amt 250 / 750 500 / 750 Red Blood Cells Unit 250 / 250 [id number] Red Blood Cells Unit 0 / 250 250 / 250 [id number] Red Blood Cells Unit 250 / 250 [id number] Output: Output, Urine Amount 350 / 350 Output, Urine Amount (Catheter) 725 / 1125 250 / 1125 150 / 1125 Hernandez 725 / 1125
--- NOTE | 2022-03-17 09:21 | EXP.CARD.PN ---
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 The patient underwent irrigation and debridement of the left lower extremity stump with removal of devitalized tissue. She now has a wound VAC in place. She is more alert today and states that she is feeling much better. She denies any chest pain or pressure. She denies any shortness of breath. She denies any fever, chills, nausea, vomiting, diarrhea, PND or orthopnea. She denies any pain this morning. Exam Data for Last 24 hours Vital signs and Labs for Last 24 Hours: Temp Pulse Resp BP Pulse Ox 98.9 F 97 H 16 118/65 91 L 03/17/22 04:00 03/17/22 04:00 03/17/22 04:00 03/17/22 04:00 03/17/22 04:00 Laboratory Results - last 24 hr 03/16/22 09:54: WBC 32.1 H*, RBC 2.45 L D, Hgb 6.2 L* D, Hct 18.3 L*, MCV 74.8 L, MCH 25.4 L, MCHC 34.0, RDW 17.0, Plt Count 767 H, MPV 7.2 L, Neut % (Auto) 89.4 H, Lymph % (Auto) 5.1 L, [place] % (Auto) 3.3, Eos % (Auto) 1.9, Baso % (Auto) 0.2, Neut # (Auto) 28.7 H, Lymph # (Auto) 1.6, [place] # (Auto) 1.1 H, Eos # (Auto) 0.6 H, Baso # (Auto) 0.1, Total Counted 100, Neutrophils % (Manual) 89 H, Lymphocytes % (Manual) 11, Platelet Estimate Marked increase, Hypochromasia 1+, Microcytosis 1+ 03/16/22 09:54: Sodium 134 L, Potassium 2.5 L*, Chloride 101, Carbon Dioxide 28, Anion Gap 7.5, BUN 14 D, Creatinine 0.80 D, Estimated Creat Clear 65, Estimated GFR 76, Est GFR ( Amer) 92 D, Glucose 126 H D, Calcium 8.1 L, Total Bilirubin 0.5, AST 47 H D, ALT 24 D, Alkaline Phosphatase 168 H, Total Protein 6.3, Albumin 2.7 L D, Globulin 3.6 H, Albumin/Globulin Ratio 0.8 L 03/16/22 09:54: Blood Type Confirm O Positive 03/16/22 11:26: POC Glucose 165 H 03/16/22 12:56: Blood Type O Positive, Antibody Screen Negative, Crossmatch (AHG) See Detail 03/16/22 16:23: POC Glucose 136 H 03/16/22 21:29: POC Glucose 194 H 03/17/22 02:35: Hgb 10.2 L D, Hct 29.4 L 03/17/22 05:52: POC Glucose 151 H 03/17/22 06:11: WBC 27.2 H*, RBC 3.80 L D, Hgb 10.4 L, Hct 31.3 L, MCV 82.4, MCH 27.4, MCHC 33.3, RDW 16.3, Plt Count 522 H D, MPV 7.8, Neut % (Auto) 88.3 H, Lymph % (Auto) 6.5 L, [place] % (Auto) 4.5, Eos % (Auto) 0.3, Baso % (Auto) 0.4, Neut # (Auto) 24.0 H, Lymph # (Auto) 1.8, [place] # (Auto) 1.2 H, Eos # (Auto) 0.1, Baso # (Auto) 0.1, Total Counted 100, Neutrophils % (Manual) 86 H, Lymphocytes % (Manual) 9 L, Monocytes % (Manual) 5, Platelet Estimate Slight increase, RBC Morphology Normal 03/17/22 06:11: Sodium 135 L, Potassium 3.1 L D, Chloride 105, Carbon Dioxide 24, Anion Gap 9.1, BUN 11, Creatinine 0.70, Estimated Creat Clear 74, Estimated GFR 89, Est GFR ( Amer) 108, Glucose 145 H, Calcium 7.4 L, Triglycerides 131, Cholesterol 88 L, LDL Cholesterol Direct 41.58 L, VLDL Cholesterol 26, HDL Cholesterol 14 L, Cholesterol/HDL Ratio 6.3 H I & O for Last 24 hours: Intake & Output 12/26/22 12/27/22 12/28/22 12/29/22 23:59 23:59 23:59 23:59 Intake Total 2250 / 2250 4142 / 4142 1325 / 1325 Output Total 2125 / 2375 400 / 400 Balance 2250 / 1500 2016 925 / 925 Weight 125 lb 107 lb 6.9 oz 106 lb 6.9 oz Microbiology Reports for the Last 24 Hours: Microbiology 03/15/22 20:00 Leg,Left - Left Gram Stain - Final 03/15/22 20:00 Leg,Left - Left Wound Culture - Preliminary NO GROWTH AFTER 24 HOURS 03/15/22 15:10 Urine,Clean Catch Urine Culture - Preliminary NO GROWTH AFTER 24 HOURS 03/15/22 14:04 Leg,Left - Wound Gram Stain - Final 03/15/22 14:04 Leg,Left - Wound Wound Culture - Preliminary Constitutional Constitutional: average body habitus and chronically ill appearing *Routine HEENT Exam Head: Present normocephalic and atraumatic ENT: Present mucous membranes moist *Routine Neck Exam Neck: Present supple, full ROM
--- NOTE | 2022-03-17 10:01 | EXP.ORTH.PN ---
Subjective *Date: 03/17/22 *Time: 09:50 Interval history: Ms. Marinelli is a 51-year-old female patient who underwent irrigation and debridement of her residual left lower extremity with removal of devitalized tissue and application of wound VAC on 03/15/[address] Diop. Today the patient is postop day #2. This morning the patient is sitting up comfortably in bed. She is more alert this morning and is able to answer my questions appropriately. She reports some pain in her left residual limb as to be expected. She states that she was able to sleep some last night. She continues to report having a poor appetite but denies any episodes of nausea or vomiting. She is anxious to return home. She denies any other symptoms or concerns at this time. Ortho Exam (Inpt) Vital signs and Labs for Last 24 Hours: Temp Pulse Resp BP Pulse Ox 99.2 F 97 H 16 118/65 91 L 03/17/22 08:00 03/17/22 04:00 03/17/22 04:00 03/17/22 04:00 03/17/22 04:00 Laboratory Results - last 24 hr 03/16/22 09:54: WBC 32.1 H*, RBC 2.45 L D, Hgb 6.2 L* D, Hct 18.3 L*, MCV 74.8 L, MCH 25.4 L, MCHC 34.0, RDW 17.0, Plt Count 767 H, MPV 7.2 L, Neut % (Auto) 89.4 H, Lymph % (Auto) 5.1 L, [place] % (Auto) 3.3, Eos % (Auto) 1.9, Baso % (Auto) 0.2, Neut # (Auto) 28.7 H, Lymph # (Auto) 1.6, [place] # (Auto) 1.1 H, Eos # (Auto) 0.6 H, Baso # (Auto) 0.1, Total Counted 100, Neutrophils % (Manual) 89 H, Lymphocytes % (Manual) 11, Platelet Estimate Marked increase, Hypochromasia 1+, Microcytosis 1+ 03/16/22 09:54: Sodium 134 L, Potassium 2.5 L*, Chloride 101, Carbon Dioxide 28, Anion Gap 7.5, BUN 14 D, Creatinine 0.80 D, Estimated Creat Clear 65, Estimated GFR 76, Est GFR ( Amer) 92 D, Glucose 126 H D, Calcium 8.1 L, Total Bilirubin 0.5, AST 47 H D, ALT 24 D, Alkaline Phosphatase 168 H, Total Protein 6.3, Albumin 2.7 L D, Globulin 3.6 H, Albumin/Globulin Ratio 0.8 L 03/16/22 09:54: Blood Type Confirm O Positive 03/16/22 11:26: POC Glucose 165 H 03/16/22 12:56: Blood Type O Positive, Antibody Screen Negative, Crossmatch (AHG) See Detail 03/16/22 16:23: POC Glucose 136 H 03/16/22 21:29: POC Glucose 194 H 03/17/22 02:35: Hgb 10.2 L D, Hct 29.4 L 03/17/22 05:52: POC Glucose 151 H 03/17/22 06:11: WBC 27.2 H*, RBC 3.80 L D, Hgb 10.4 L, Hct 31.3 L, MCV 82.4, MCH 27.4, MCHC 33.3, RDW 16.3, Plt Count 522 H D, MPV 7.8, Neut % (Auto) 88.3 H, Lymph % (Auto) 6.5 L, [place] % (Auto) 4.5, Eos % (Auto) 0.3, Baso % (Auto) 0.4, Neut # (Auto) 24.0 H, Lymph # (Auto) 1.8, [place] # (Auto) 1.2 H, Eos # (Auto) 0.1, Baso # (Auto) 0.1, Total Counted 100, Neutrophils % (Manual) 86 H, Lymphocytes % (Manual) 9 L, Monocytes % (Manual) 5, Platelet Estimate Slight increase, RBC Morphology Normal 03/17/22 06:11: Sodium 135 L, Potassium 3.1 L D, Chloride 105, Carbon Dioxide 24, Anion Gap 9.1, BUN 11, Creatinine 0.70, Estimated Creat Clear 74, Estimated GFR 89, Est GFR ( Amer) 108, Glucose 145 H, Calcium 7.4 L, Triglycerides 131, Cholesterol 88 L, LDL Cholesterol Direct 41.58 L, VLDL Cholesterol 26, HDL Cholesterol 14 L, Cholesterol/HDL Ratio 6.3 H I & O for Labs for Last 24 Hours: Intake & Output 12/26/22 12/27/22 12/28/22 12/29/22 23:59 23:59 23:59 23:59 Intake Total 2250 / 2250 4142 / 4142 1445 / 1445 Output Total 2125 / 2375 400 / 400 Balance 2250 / 1500 2016 1045 / 1045 Weight 125 lb 107 lb 6.9 oz 106 lb 6.9 oz Microbiology Reports for the Last 24 Hours: Microbiology 03/15/22 20:00 Leg,Left - Left Gram Stain - Final 03/15/22 20:00 Leg,Left - Left Wound Culture - Preliminary 03/15/22 14:04 Leg,Left - Wound Gram Stain - Final 03/15/22 14:04 Leg,Left - Wound Wound Culture - Preliminary Gram Negative Rods Gram Positive Cocci 03/15/22 15:10 Urine,Clean Catch Urine Culture - Preliminary NO GROWTH AFTER 24 HOURS Head: Present normocephalic and atraumatic Eyes: Present as per HPI ENT:
--- NOTE | 2022-03-17 11:18 | HMH.PTWOUND ---
Rehab Inpt Wound Evaluation Rehab IP Wound Evaluation Start: 03/16/22 13:44 Freq: DAILY Status: Active Protocol: Document 03/17/22 11:08 ETIENNERUBENS (Rec: 03/17/22 11:18 PHOSUSAN [id number]) Rehab PT Wound Assessment Subjective Subjective 51 yowf adm to [facility] with UTI, septic shock, requiring L BKA I&D. She also presents with R BKA distal stump wound pre- existing and R finger 2-4 with wounds pre-existing. She c/o significant L LE pain at this time with Wound VAC dressing in place with good seal. Wound Right Distal Leg Wound Type likely arterial insufficiency. Is This a Chronic Wound Yes Wound Length (cm) 4.1 Wound Width (cm) 4.3 Wound Bed Appearance Eschar Percentage of Eschar (Black) (%) 100 Wound Margins Description Well Defined Surrounding Tissue Appearance [place] Drainage Amount None Drainage Odor No Odor Dressing Status Open to Air Wound Debridement Amount of Tissue None Removed Dressing Change Patient Tolerance Tolerated Well Plan/Recommendation Comment Currently R distal stump wound with dry stable eschar which requires no debridement. No dressing necessary at this time, but will monitor for any wound changes. R fingers also dry and stable eschar on 3-4, bullae noted to medial distal 2nd finger. Recommend fingers covered with polymem 2x2 per nsg staff. Will monitor for atbility and wound changes. Eval Complexity Eval Charge Codes 61561 - High Complexity PHYSICIAN CERTIFICATION: I certify the specified therapy services for Cristina Marinelli are required, authorized, and reviewed every 30 days.
--- NOTE | 2022-03-17 11:38 | DIET.NUTRFU ---
Addendum entered by Agnes Rivero RD, LD 03/18/22 16:08: patient was very lethargic again today, no family available at time of visit. Handout are in patient folder. Addendum entered by Agnes Rivero RD, LD 03/17/22 16:26: attempted again after lunch and she was very lethargic, she does report the kids do the cooking. Will try to touch base with daughter tomorrow. Lefty multiple handouts in folder Original Note: Attempted to visit this morning for DM and high protein information and patient seemed in too much pain to review dietary habits and recommendations. Will attempt after lunch.
--- NOTE | 2022-03-17 13:30 | PC.NURSE ---
1250 called and spoke with Margarita in ortho. notified that pt was having breakthrough pain with morphine. Margarita states that she will speak with Dr hale about ordering meds for breakthrough pain.
[2022-03-17 13:32] LABS: POC Glucose,Bedside 184 (70-110)
--- NOTE | 2022-03-17 15:15 | PC.NURSE ---
report given to prerna perdomo rn,
[2022-03-17 15:36] LABS: Vancomycin,Trough 6.9 ug/mL (5.0-10.0)
[2022-03-17 16:10] LABS: POC Glucose,Bedside 245 (70-110)
--- NOTE | 2022-03-17 16:28 | EXP.PHA.CONS ---
Pharmacy Consult Date: 03/17/22 Time: 16:29 Referring provider: DR ARMENDARIZ Reason for Consult:: VANCOMYCIN TROUGH LEVEL OBTAINED Allergies Allergy/AdvReac Type Severity Reaction Status Date / Time No Known Allergies Allergy Verified 03/15/22 12:10 Home Medications Medication Instructions Recorded Confirmed Type amitriptyline 100 mg tablet 100 mg PO HS Depression/SLEEP 10/22/17 03/15/22 History aspirin 81 mg chewable tablet 81 mg PO DAILY Heart disease 10/02/18 03/15/22 History cyanocobalamin (vitamin B-12) 1,000 mcg PO DAILY Supplement 09/04/19 03/15/22 History 1,000 mcg tablet gabapentin 600 mg tablet 600 mg PO TID neuropathy 09/04/19 03/15/22 History insulin glargine 100 unit/mL 40 unit SQ HS Diabetes 09/16/20 03/16/22 History subcutaneous solution insulin lispro 100 unit/mL 10 unit SQ AC Diabetes 09/16/20 03/16/22 History subcutaneous cartridge atorvastatin 40 mg tablet 40 mg PO DAILY Cholesterol 11/15/21 03/15/22 History cholecalciferol (vitamin D3) 25 25 mcg PO DAILY Supplement 01/10/22 03/15/22 History mcg (1,000 unit) capsule sacubitril 24 mg-valsartan 26 mg 1 tab PO BID bp #180 tabs 01/24/22 03/15/22 Rx tablet carvedilol 12.5 mg tablet 12.5 mg PO BID htn #180 tabs 01/28/22 03/15/22 Rx ticagrelor 90 mg tablet 90 mg PO BID Heart disease/blood 01/28/22 03/16/22 Rx thinner #60 tabs furosemide 40 mg tablet 40 mg PO BID PRN Edema #60 tabs 02/15/22 03/15/22 Rx hydrocodone 5 mg-acetaminophen 325 1 tab PO Q4H PRN post op pain #30 03/03/22 03/16/22 Rx mg tablet tabs cephalexin 500 mg capsule 500 mg PO QID post op infection 03/15/22 03/15/22 History New Prescriptions to Start Prescriptions: Height: 1.35 m Weight: 48.276 kg Laboratory Results:: Laboratory Results - last 24 hr 03/16/22 12:56: Blood Type O Positive, Antibody Screen Negative, Crossmatch (AHG) See Detail 03/16/22 16:23: POC Glucose 136 H 03/16/22 21:29: POC Glucose 194 H 03/17/22 02:35: Hgb 10.2 L D, Hct 29.4 L 03/17/22 05:52: POC Glucose 151 H 03/17/22 06:11: WBC 27.2 H*, RBC 3.80 L D, Hgb 10.4 L, Hct 31.3 L, MCV 82.4, MCH 27.4, MCHC 33.3, RDW 16.3, Plt Count 522 H D, MPV 7.8, Neut % (Auto) 88.3 H, Lymph % (Auto) 6.5 L, [place] % (Auto) 4.5, Eos % (Auto) 0.3, Baso % (Auto) 0.4, Neut # (Auto) 24.0 H, Lymph # (Auto) 1.8, [place] # (Auto) 1.2 H, Eos # (Auto) 0.1, Baso # (Auto) 0.1, Total Counted 100, Neutrophils % (Manual) 86 H, Lymphocytes % (Manual) 9 L, Monocytes % (Manual) 5, Platelet Estimate Slight increase, RBC Morphology Normal 03/17/22 06:11: Sodium 135 L, Potassium 3.1 L D, Chloride 105, Carbon Dioxide 24, Anion Gap 9.1, BUN 11, Creatinine 0.70, Estimated Creat Clear 74, Estimated GFR 89, Est GFR ( Amer) 108, Glucose 145 H, Calcium 7.4 L, Triglycerides 131, Cholesterol 88 L, LDL Cholesterol Direct 41.58 L, VLDL Cholesterol 26, HDL Cholesterol 14 L, Cholesterol/HDL Ratio 6.3 H 03/17/22 12:10: POC Glucose 184 H 03/17/22 14:30: Vancomycin Trough 6.9 03/17/22 15:54: POC Glucose 245 H Medical History: Medical History (Updated 03/16/22 @ 11:04 by Yeimi Bliss APRN) Abnormal ankle brachial index (ALAN) Abnormal EKG Acute urinary tract infection Anemia Arthralgia of ankle Bacteremia due to Escherichia coli CAD (coronary artery disease) Campylobacter diarrhea Cellulitis of left foot Chronic systolic heart failure Depression Dermatitis Diabetes mellitus, type 2 Diabetic infection of right foot Diabetic ulcer of right foot associated with diabetes mellitus due to underlying condition, with fat layer exposed Dizziness Dyspnea Elevated troponin Encounter for pre-operative cardiovascular clearance Encounter for wound care Fever Foot abscess, right Gangrene of right foot HHD (hypertensive heart disease) History of CVA (cerebrovascular accident) HLD (hyperlipidemia) Hypokalemia Hyponatremia Hypotension Ischemic cardiomyopathy Left foot infection Left shift MRSA (methicillin resistant staph aureus) culture positive Nail dystroph
[2022-03-17 22:11] LABS: POC Glucose,Bedside 151 (70-110)
[2022-03-18] VITALS (26 sets, daily range): BP systolic 95–125; BP diastolic 63–93; PULSE 90–119; RESP 14–22; TEMP 36.3–37.7; O2SAT 94–100; BMI 26.4
[2022-03-18 00:02] LABS: POC Glucose,Bedside 157 (70-110)
--- NOTE | 2022-03-18 00:14 | PC.NURSE ---
noted pt to be very lethargic and unable to stay awake long enough to answer questions, pt appears to be in a sedative state, v/s stable 113/68, rr 18, pulse ox 96% on room air, hr 111, temp 99.7, fsbs 157, pt unable to stay awake long enough to swallow pills and not able to follow commands, when name is called pt will only say what and then go back to sleep, no apparent distress noted, dr brennan called and informed of concern about patient and meds that have been given, dr brennan stated not sure what is going on, obtain abg.
[2022-03-18 00:15] LABS: ABG Base Excess -2.4 mmol/L (-2.4-2.3); ABG HCO3 20.9 mmhg (22.0-26.0); ABG Oxygen Saturation 94 % (90-100); ABG PCO2 28.1 mmhg (35.0-45.0); ABG PH 7.49 mmol/L (7.35-7.45); ABG PO2 66.2 mmhg (80-100); ABG TCO2 21.8 mmhg (23-27); Allen's Test Acceptable; Oxygen 21 %; Source Right Radial
--- NOTE | 2022-03-18 03:42 | PC.NURSE ---
pt more awake at this time, pt noted with mild lethargy unable to hold glass of water steadily and had to assist pt with drink, pt answering more questions at this time but will drift back to sleep, v/s remain stable.
[2022-03-18 06:01] LABS: POC Glucose,Bedside 173 (70-110)
--- NOTE | 2022-03-18 06:01 | PC.NURSE ---
pt lethargic most of shift, pt sleeps when not disturbed, however has moaned a few times this morning and when asked what is wrong pt states nothing, and then states im not moaning . pt denies pain when asked, pt is able to answer name and place, dressing intact to left stump with wound vac in place, v/s stable, pt has been febrile with temp 99.7, no acute distress, telemetry reveals sinus tach.
--- NOTE | 2022-03-18 08:16 | EXP.ACUTE.PN ---
Subjective *Date: 03/18/22 *Time: 08:16 Interval history: Patient has been very weak and lethargic. Nursing was worried last night about her mental status. This am she states she is hungry but is too weak to even lift her spoon. She denies any pain. Medical Exam Vital signs and Labs for Last 24 Hours: Vital Signs Temp Pulse Pulse Resp BP Pulse Ox 03/18/22 04:00 110 H 03/18/22 00:00 90 03/17/22 20:00 110 H 03/18/22 03:31 98.4 F 114 H 16 101/71 L 97 03/17/22 23:39 99.7 F H 109 H 18 113/68 96 03/17/22 20:00 95 03/17/22 20:00 99.4 F 103 H 18 110/70 95 03/17/22 16:00 108 H 03/17/22 16:00 98.7 F 109 H 20 131/79 95 03/17/22 12:00 90 03/17/22 16:46 18 03/17/22 14:00 116 H 20 109/71 L 94 L 03/17/22 12:00 123 H 22 144/54 H 93 L 03/17/22 10:00 111 H 20 102/78 L 92 L Intake and Output 03/17/22 03/18/22 03/18/22 19:59 03:59 11:59 Intake Total 436 / 1579 1143 / 1579 Output Total 700 / 700 0 / 700 Balance 436 / 879 -700 / 879 1143 / 879 Intake: Intake, Oral Amount 240 / 240 Intake, Total IV Amount 196 / 1339 1143 / 1339 0.9 % Sodium Chloride 1,000 ml 196 / 1239 1043 / 1239 @ 100 mls/hr IV .Q10H QUEENIE Rx#: [id number] Cefepime HCl 2 gm In 0.9 % 100 / 100 Sodium Chloride 100 ml @ 200 mls/hr IV Q12H QUEENIE Rx#:[id number] Output: Output, Urine Amount 700 / 700 0 / 700 Other: Number of Unmeasured Voids 0 0 0 Weight 106 lb 6.9 oz 106 lb 5.989 oz Patient Weight 03/18/22 11:59 Weight 106 lb 5.989 oz Laboratory Results - last 24 hr 03/17/22 12:10: POC Glucose 184 H 12/29/22 14:30: Vancomycin Trough 6.9 03/17/22 15:54: POC Glucose 245 H 03/17/22 20:23: POC Glucose 151 H 03/17/22 23:56: POC Glucose 157 H 03/18/22 00:12: Specimen Source Right radial, O2 % 21, ABG pH 7.49 H, ABG pCO2 28.1 L, ABG pO2 66.2 L, ABG HCO3 20.9 L, ABG Total CO2 21.8 L, ABG O2 Saturation 94, ABG Base Excess -2.4, Sidney Test Acceptable 03/18/22 05:55: POC Glucose 173 H I & O for Labs for Last 24 Hours: Intake & Output 03/15/22 03/16/22 03/17/22 03/18/22 11:59 11:59 11:59 11:59 Intake Total 3696 / 3696 4141 / 4141 1579 / 1579 Output Total 1050 / 1050 1475 / 1475 700 / 700 Balance 2646 / 2646 2666 / 2666 879 / 879 Weight 107 lb 7 oz 106 lb 6.9 oz 106 lb 5.989 oz Microbiology Reports for the Last 24 Hours: Microbiology 03/15/22 15:10 Urine,Clean Catch Urine Culture - Final NO GROWTH AFTER 48 HOURS 03/15/22 13:14 Blood Blood Culture - Preliminary NO GROWTH AFTER 48 HOURS 03/15/22 13:14 Blood Blood Culture - Preliminary NO GROWTH AFTER 48 HOURS 03/15/22 20:00 Leg,Left - Left Gram Stain - Final 03/15/22 20:00 Leg,Left - Left Wound Culture - Preliminary 03/15/22 14:04 Leg,Left - Wound Gram Stain - Final 03/15/22 14:04 Leg,Left - Wound Wound Culture - Preliminary Gram Negative Rods Gram Positive Cocci Constitutional: Present chronically ill appearing Head: Present normocephalic ENT: Present mucous membranes dry Neck: Present normal inspection Respiratory: Present CTA bilaterally; Absent rales, respiratory distress, rhonchi, stridor or wheezes Cardiac: Present Reg Rate and Rhythm GI: Present soft; Absent distention or tenderness Rectal (female): Present deferred (female): Present deferred Extremities: Absent edema Comment:: There is a dressing in place and a wound VAC on the left leg BKA stump. Skin: Present dry, pallor and jaundice Comment:: Altered mental status Assessment and Plan *Assessment and plan (1) Septic shock: Status: Acute Category: Medical Code(s): A41.9 - Sepsis, unspecified organism; R65.21 - Severe sepsis with septic shock (2) Acute hypokalemia: Status: Acute Category
[2022-03-18 08:47] LABS: Basophils # 0.1 K/mm3 (0-0.2); Basophils % 0.5 % (0.1-2.0); Eosinophils # 0.4 K/mm3 (0.0-0.4); Eosinophils % 2.1 % (0.1-12.0); Hematocrit 30.4 % (37.0-47.0); Hemoglobin 9.9 g/dL (12.2-16.2); Lymphocytes # 1.5 K/mm3 (0.7-4.5); Lymphocytes % 7.9 % (10-50); Mean Corpuscular HGB Conc 32.6 g/dL (31.8-35.4); Mean Corpuscular Hemoglobin 27.6 pg (27.0-31.2); Mean Corpuscular Volume 84.6 fl (81-99); Mean Platelet Volume 7.4 fl (7.4-10.4); Monocytes # 0.6 K/mm3 (0.1-1.0); Monocytes % 3.2 % (1.7-9.3); Neutrophils # 16.7 K/mm3 (1.8-7.8); Neutrophils % 86.3 % (37.0-80.0); Platelet Count 562 K/mm3 (142-424); Red Blood Count 3.59 M/mm3 (4.20-5.40); Red Cell Distribution Width 16.8 % (11.5-17.5); White Blood Count 19.3 K/mm3 (4.8-10.8)
[2022-03-18 08:56] LABS: Chloride 107 mmol/L (98-107); Potassium 4.7 mmoL/L (3.5-5.1); Sodium 136 mmol/L (136-145)
--- NOTE | 2022-03-18 08:57 | EXP.ORTH.PN ---
Subjective *Date: 03/18/22 *Time: 08:57 Interval history: Patient has been confused during the night. She responds to me this morning appropriately. Reports that she is not feeling well. But states that she is eager to go home. Wound VAC is working without leaks. BP has been stable off pressers. Ortho Exam (Inpt) Vital signs and Labs for Last 24 Hours: Temp Pulse Resp BP Pulse Ox 99.8 F H 119 H 20 125/93 H 95 03/18/22 08:00 03/18/22 08:00 03/18/22 08:00 03/18/22 08:00 03/18/22 08:00 Laboratory Results - last 24 hr 03/17/22 12:10: POC Glucose 184 H 03/17/22 14:30: Vancomycin Trough 6.9 03/17/22 15:54: POC Glucose 245 H 03/17/22 20:23: POC Glucose 151 H 03/17/22 23:56: POC Glucose 157 H 03/18/22 00:12: Specimen Source Right radial, O2 % 21, ABG pH 7.49 H, ABG pCO2 28.1 L, ABG pO2 66.2 L, ABG HCO3 20.9 L, ABG Total CO2 21.8 L, ABG O2 Saturation 94, ABG Base Excess -2.4, Sidney Test Acceptable 03/18/22 05:55: POC Glucose 173 H I & O for Labs for Last 24 Hours: Intake & Output 03/15/22 03/16/22 03/17/22 03/18/22 23:59 23:59 23:59 23:59 Intake Total 2250 / 2250 4142 / 4142 1881 / 1881 1143 / 1143 Output Total 2125 / 2375 400 / 400 700 / 700 Balance 2250 / 1500 2017 / 1767 1481 / 1481 443 / 443 Weight 125 lb 107 lb 6.9 oz 106 lb 6.9 oz 106 lb 5.989 oz Microbiology Reports for the Last 24 Hours: Microbiology 03/15/22 15:10 Urine,Clean Catch Urine Culture - Final NO GROWTH AFTER 48 HOURS 03/15/22 13:14 Blood Blood Culture - Preliminary NO GROWTH AFTER 48 HOURS 03/15/22 13:14 Blood Blood Culture - Preliminary NO GROWTH AFTER 48 HOURS 03/15/22 20:00 Leg,Left - Left Gram Stain - Final 03/15/22 20:00 Leg,Left - Left Wound Culture - Preliminary 03/15/22 14:04 Leg,Left - Wound Gram Stain - Final 03/15/22 14:04 Leg,Left - Wound Wound Culture - Preliminary Gram Negative Rods Gram Positive Cocci Findings:: LEFT LE: wound VAC in place. No leaks. Assessment and Plan *Assessment and plan (1) Status post below-knee amputation of left lower extremity: Status: Acute Category: Surgical Code(s): Z89.512 - Acquired absence of left leg below knee (2) Septic shock: Status: Acute Category: Medical Code(s): A41.9 - Sepsis, unspecified organism; R65.21 - Severe sepsis with septic shock (3) Gangrene of lower extremity: Status: Acute Category: Medical Code(s): I96 - Gangrene, not elsewhere classified Plan Wound VAC change today with PT/wound care. Awake final cultures to focus antibiotics. Will need placement with SNF for wound VAC care and IV antibiotics.
[2022-03-18 08:59] LABS: Alanine Aminotransferase 26 U/L (12-78); Albumin Level 2.6 g/dl (3.5-5.0); Albumin/Globulin Ratio 0.8 (1.1-1.8); Alkaline Phosphatase 156 U/L (38-126); Anion Gap 15.7 mEq/L (5-15); Aspartate Amino Transferase 53 U/L (14-36); Bilirubin,Total 1.1 mg/dl (0.2-1.3); Blood Urea Nitrogen 12 mg/dl (7-17); Carbon Dioxide 18 mmol/L (22.0-30.0); Creatinine Clearance Estimated 74 mL/min (50-200); Estimated Glomerular Filt Rate 89 ml/min (>60); GFR (African American) 108 ML/MIN (>60); Globulin 3.4 g/dL (1.3-3.2)
[2022-03-18 09:00] LABS: Calcium 7.8 mg/dl (8.4-10.2); Glucose 204 mg/dl (74-100)
[2022-03-18 09:09] LABS: MANUAL DIFFERENTIAL MANUAL DIFFERENTIAL (MANUAL DIFF)
[2022-03-18 09:25] LABS: Eosinophils % 1 % (0-3); Lymphocytes % 10 % (10-50); Monocytes % 1 % (2-9); Neutrophils % 88 % (42-76); Platelet Estimate Moderate Increase; RBC Morphology Normal; Total Cells Counted 100
[2022-03-18 10:37] LABS: POC Glucose,Bedside 236 (70-110)
--- NOTE | 2022-03-18 12:19 | PC.NURSE ---
ATTEMPTED TO CONTACT PT'S DAUGHTER @ THIS TIME ABOUT PT'S CONDITION. NO ANSWER AT THIS TIME
[2022-03-18 12:43] LABS: Urine Pregnancy, HCG Qual. Negative (Negative)
--- NOTE | 2022-03-18 13:15 | PC.NURSE ---
EARLY THIS AFTERNOON PHYSICAL THERAPY REMOVED DRESSING FROM PT'S LLE. TISSUE TO WOUND WAS NON VIABLE, SLOUGH NOTED, BONE EXPOSED WITH BRIGHT RED ARTERIAL BLOOD BLEEDING HEAVILY FROM WOUND. MANUAL PRESSURE APPLIED. TOURNIQUET APPLIED ABOVE BLEED. NOTIFIED 'S OFFICE. NAEEM MONCADA ARRIVED TO BEDSIDE. LLE WAS DRESSED WITH KERLIX AND SHARON WRAP. PT WAS IMMEDIATELY TAKEN TO PRE-OP FOR SURGERY. FAMILY HAS BEEN NOTIFED.
--- NOTE | 2022-03-18 13:43 | EXP.ANES.CKL ---
[facility] Disclaimer: The information contained in this section may have been updated after the patient was seen, as this information can be updated by other users. Medical History Abnormal ankle brachial index (ALAN) Abnormal EKG Acute urinary tract infection Anemia Arthralgia of ankle Bacteremia due to Escherichia coli CAD (coronary artery disease) Campylobacter diarrhea Cellulitis of left foot Chronic systolic heart failure Depression Dermatitis Diabetes mellitus, type 2 Diabetic infection of right foot Diabetic ulcer of right foot associated with diabetes mellitus due to underlying condition, with fat layer exposed Dizziness Dyspnea Elevated troponin Encounter for pre-operative cardiovascular clearance Encounter for wound care Fever Foot abscess, right Gangrene of right foot HHD (hypertensive heart disease) History of CVA (cerebrovascular accident) HLD (hyperlipidemia) Hypokalemia Hyponatremia Hypotension Ischemic cardiomyopathy Left foot infection Left shift MRSA (methicillin resistant staph aureus) culture positive Nail dystrophy Non-healing wound NYHA Class II cardiovascular function Osteomyelitis Postoperative dehiscence of skin wound Postoperative wound dehiscence Pulmonary hypertension, moderate to severe Right foot ulcer Sepsis Severe mitral valve regurgitation Severe tricuspid valve regurgitation Stroke Tachycardia Tobacco dependence syndrome Type 2 diabetes mellitus Unstable angina pectoris Urinary tract infection Surgical History History of cardiac defibrillator placement History of laparoscopic cholecystectomy History of right below knee amputation History of tubal ligation Status post below-knee amputation of left lower extremity Family History Diabetes Heart attack Hypertension Social History Smoking Status: Current every day smoker tobacco type: cigarettes packs per day: 1 years smoked: 20 second hand exposure: No alcohol intake: never substance use type: denies use current occupational status: unemployed Travel in the last 8 weeks: None housing: house current occupational exposures/hazards: No caffeine: Yes [facility] Anesthesia Checklist Patient Identification Patient Identification: Arm Band Structural Data Admitted From: Inpatient Planned Operative Procedure/s: I&D Left Lower Extremity Wound Consent for Planned Operative Procedure(s) Verified: Yes Verified Documents: Surgical Consent and History and Physical NPO Status Verified Time NPO: 09:00 (ice chips) Additional verifications Anesthesia Reactions: No Hx Blood Transfusions: No Blood Transfusion Reaction: No Airway Assessment C-Spine Mobility Assessed: Yes TMJ Mobility Assessed: Yes Dentition: Edentulous Neurological Assessment Level of Consciousness: Awake, Alert and Appropriate Anesthesia Plan Anesthesia Risk discussed: Yes Anesthesia Plan: Verified ASA Class: IV (E) Anesthesia Type: General Preoperative Comments Pre-Operative Comments: Pt able to answer some questions preoperatively, but is having severe pain for which she has been medicated. Preop nurses unable to reach daughter. D/t the urgency of the procedure, emergent consent obtained and pt taken to the OR.
--- NOTE | 2022-03-18 14:18 | EXP.CARD.PN ---
Subjective Subjective Date: 03/18/22 Time: 14:18 Principal diagnosis: sepsis Interval history: Attempted to evaluate the patient on 2 separate occasions today. During the first occasion she had a dehiscence of her left lower extremity stump wound and they were trying to get this to stop and then the patient had to be taken back to surgery. On the second occasion the patient was still in surgery. So we were unable to evaluate the patient today. Labs and chart has been reviewed today. Exam Data for Last 24 hours Vital signs and Labs for Last 24 Hours: Temp Pulse Resp BP Pulse Ox 98.4 F 114 H 19 116/74 97 03/18/22 11:11 03/18/22 12:00 03/18/22 12:05 03/18/22 11:11 03/18/22 11:11 Laboratory Results - last 24 hr 03/17/22 14:30: Vancomycin Trough 6.9 03/17/22 15:54: POC Glucose 245 H 03/17/22 20:23: POC Glucose 151 H 03/17/22 23:56: POC Glucose 157 H 03/18/22 00:12: Specimen Source Right radial, O2 % 21, ABG pH 7.49 H, ABG pCO2 28.1 L, ABG pO2 66.2 L, ABG HCO3 20.9 L, ABG Total CO2 21.8 L, ABG O2 Saturation 94, ABG Base Excess -2.4, Sidney Test Acceptable 03/18/22 05:55: POC Glucose 173 H 03/18/22 08:37: WBC 19.3 H D, RBC 3.59 L, Hgb 9.9 L, Hct 30.4 L, MCV 84.6, MCH 27.6, MCHC 32.6, RDW 16.8, Plt Count 562 H, MPV 7.4, Neut % (Auto) 86.3 H, Lymph % (Auto) 7.9 L, Duval % (Auto) 3.2, Eos % (Auto) 2.1, Baso % (Auto) 0.5, Neut # (Auto) 16.7 H, Lymph # (Auto) 1.5, Duval # (Auto) 0.6, Eos # (Auto) 0.4, Baso # (Auto) 0.1, Total Counted 100, Neutrophils % (Manual) 88 H, Lymphocytes % (Manual) 10, Monocytes % (Manual) 1 L, Eosinophils % (Manual) 1, Platelet Estimate Moderate increase, RBC Morphology Normal 03/18/22 08:37: Sodium 136, Potassium 4.7 D, Chloride 107, Carbon Dioxide 18 L, Anion Gap 15.7 H, BUN 12, Creatinine 0.70, Estimated Creat Clear 74, Estimated GFR 89, Est GFR ( Amer) 108, Glucose 204 H, Calcium 7.8 L, Total Bilirubin 1.1, AST 53 H, ALT 26, Alkaline Phosphatase 156 H, Total Protein 6.0 L, Albumin 2.6 L, Globulin 3.4 H, Albumin/Globulin Ratio 0.8 L 03/18/22 10:24: POC Glucose 236 H 03/18/22 12:30: Urine HCG, Qual Negative I & O for Last 24 hours: Intake & Output 03/15/22 03/16/22 03/17/22 03/18/22 23:59 23:59 23:59 23:59 Intake Total 2250 / 2250 4142 / 4142 1881 / 1881 1383 / 1383 Output Total 2125 / 2375 400 / 400 1125 / 1125 Balance 2250 / 1500 2017 / 1767 1481 / 1481 258 / 258 Weight 125 lb 107 lb 6.9 oz 106 lb 6.9 oz 106 lb 5.989 oz Microbiology Reports for the Last 24 Hours: Microbiology 03/15/22 20:00 Leg,Left - Left Gram Stain - Final 03/15/22 20:00 Leg,Left - Left Wound Culture - Preliminary Gram Negative Rods Gram Positive Cocci 03/15/22 14:04 Leg,Left - Wound Gram Stain - Final 03/15/22 14:04 Leg,Left - Wound Wound Culture - Preliminary Gram Negative Rods Staphylococcus epidermidis 03/15/22 15:10 Urine,Clean Catch Urine Culture - Final NO GROWTH AFTER 48 HOURS 03/15/22 13:14 Blood Blood Culture - Preliminary NO GROWTH AFTER 48 HOURS 03/15/22 13:14 Blood Blood Culture - Preliminary NO GROWTH AFTER 48 HOURS Progress Note: A&P Assessment and plan (1) Status post below-knee amputation of left lower extremity: Status: Acute (2) Septic shock: Status: Acute (3) Gangrene of lower extremity: Status: Acute (4) Anemia: Status: Acute (5) History of right below knee amputation: Status: Acute (6) Urinary tract infection: Status: Acute (7) LAINEY (acute kidney injury): Status: Acute (8) PAD (peripheral artery disease): Status: Chronic (9) Peripheral neuropathy: Status: Acute (10) History of coronary artery stent placement: Status: Acute (11) AICD (automatic cardioverter/defibrillator) present: Status: C
--- NOTE | 2022-03-18 14:20 | EXP.OP.NOTE ---
Date of procedure: 03/18/22 Pre-op Diagnosis:: Left lower extremity infected below-knee amputation with acute bleeding following wound VAC change Post-op Diagnosis:: Same with small arterial bleeding vessel posterior compartment of the leg Procedure performed:: Irrigation and debridement left lower extremity with cauterization of small arterial bleeder posterior compartment and placement of wound VAC Surgeon:: Cody Diop DO VAULT MAKER:: Barrett Devine Anesthesia: GETA Estimated blood loss (mL): 50 Operative findings:: Small arterial bleeder posterior compartment of the leg that was easily clamped and tied and cauterized Operative note:: This is a 51-year-old female who is undergone debridement of left lower extremity infected BKA stump with necrosis and gangrene had subsequently had wound VAC placed at that operation. Wound VAC was intact without much drainage. However today after wound VAC sponge was removed there was evidence of a small arterial bleeder that was actively bleeding in the ICU during wound VAC changing. Pressure dressing was placed regular small tourniquet was placed on the leg I was called for immediate transfer to the operating room to cauterize the arterial bleeder. Consent was obtained for irrigation debridement wound VAC change and cauterization of the vessel as needed. Patient was taken back to the operating room placed upon the operating bed general anesthesia ministered airway secured the left lower extremity was then prepped with Betadine prep after the pressure dressing was removed. There is a small tourniquet on the thigh. Was prepped and draped again with a Betadine prep then sterilely draped. Tourniquet was removed from the thigh. There is a small arterial vessel in the posterior compartment that was bleeding. This was clamped with a hemostat and stick tied with silk suture and hand tied with a silk suture. No tourniquet was used during this procedure and bleeding was easily controlled. Hemostat was removed and no active bleeding at this small arterial vessel. Attention was brought to the wound. Even though the wound looked much better than the previous irrigation debridement there was still some devitalized tissue on the anterior skin and anterior around the tibia. The anterior skin was not viable so sharp dissection was taken around to remove this nonviable tissue rongeur was used to remove nonviable tissue. Duane was used to slightly shortened the BKA stump to allow for some soft tissue coverage over the bone. Copious irrigation was performed with the Pulsavac. And this was repeated. Care was taken to make sure there is no active bleeding for the stump. Nonthreaded PDS suture was used for soft tissue coverage posterior compartment over the bone. All tissue seen in the bed of the wound appeared to be viable. There is no abscess or tristan pus. All the remaining muscles can posterior compartment did jump with electrocautery and appeared to be viable. At that time the wound VAC dressing was selected and sized and cut appropriately the VAC sponge was placed and the VAC dressing was placed over the sponge with place to suction there is no evidence of leaks with good suction of the wound VAC sponge. Patient waken anesthesia taken recovery in stable condition. Of note prognosis for BKA stump is poor at this point. The tissue coverage around the BKA stump is becoming less and less. The initial goal is to control the infection and stage possible above-knee amputation. However at this point will require significant wound care to clear infection before definitive procedure performed. Of note unfortunately there also necrotic changes at the tips of her fingers and also posteriorly in the same lower leg and some necrotic changes at the stump on the right BKA. She will need to strictly stop smoking in order to have a chance for healing of these wounds. Prognosis at this point for the BKA stump is poor. Condition: stable Disposi
--- NOTE | 2022-03-18 14:22 | P.PNANES_ITS ---
[facility] Anesthesia Record Part I Anesthesia Record I Intake, IV Amount: 600 Estimated blood loss (mL): 25 Urine output (mL): 100 Blood Pressure: 116/68 SaO2: 97 Pulse Rate: 103 Respiratory Rate: 16 Temperature: 98.4 F Patient is:: Drowsy and Stable Stable to PACU at:: 14:20
--- NOTE | 2022-03-18 14:32 | EXP.ORTH.PN ---
Subjective *Date: 03/18/22 *Time: 13:02 Interval history: During wound VAC change today on the floor there was evidence of bleeding of the stump I was called for urgent evaluation of the bleeding brought her straight from the floor to the operating room for irrigation debridement and cauterization of this active bleeding that was identified on the wound VAC change. This is likely due to removal of clot after sponge removal as the wound VAC was on active suction it was not actively bleeding within the wound VAC. Pressure dressing placed patient taken urgently to the OR for irrigation debridement wound VAC change and cauterization of vessel Ortho Exam (Inpt) Vital signs and Labs for Last 24 Hours: Temp Pulse Resp BP Pulse Ox 98.4 F 103 H 16 116/68 97 03/18/22 14:24 03/18/22 14:24 03/18/22 14:24 03/18/22 14:24 03/18/22 11:11 Laboratory Results - last 24 hr 03/17/22 14:30: Vancomycin Trough 6.9 03/17/22 15:54: POC Glucose 245 H 03/17/22 20:23: POC Glucose 151 H 03/17/22 23:56: POC Glucose 157 H 03/18/22 00:12: Specimen Source Right radial, O2 % 21, ABG pH 7.49 H, ABG pCO2 28.1 L, ABG pO2 66.2 L, ABG HCO3 20.9 L, ABG Total CO2 21.8 L, ABG O2 Saturation 94, ABG Base Excess -2.4, Sidney Test Acceptable 03/18/22 05:55: POC Glucose 173 H 03/18/22 08:37: WBC 19.3 H D, RBC 3.59 L, Hgb 9.9 L, Hct 30.4 L, MCV 84.6, MCH 27.6, MCHC 32.6, RDW 16.8, Plt Count 562 H, MPV 7.4, Neut % (Auto) 86.3 H, Lymph % (Auto) 7.9 L, Nye % (Auto) 3.2, Eos % (Auto) 2.1, Baso % (Auto) 0.5, Neut # (Auto) 16.7 H, Lymph # (Auto) 1.5, Nye # (Auto) 0.6, Eos # (Auto) 0.4, Baso # (Auto) 0.1, Total Counted 100, Neutrophils % (Manual) 88 H, Lymphocytes % (Manual) 10, Monocytes % (Manual) 1 L, Eosinophils % (Manual) 1, Platelet Estimate Moderate increase, RBC Morphology Normal 03/18/22 08:37: Sodium 136, Potassium 4.7 D, Chloride 107, Carbon Dioxide 18 L, Anion Gap 15.7 H, BUN 12, Creatinine 0.70, Estimated Creat Clear 74, Estimated GFR 89, Est GFR ( Amer) 108, Glucose 204 H, Calcium 7.8 L, Total Bilirubin 1.1, AST 53 H, ALT 26, Alkaline Phosphatase 156 H, Total Protein 6.0 L, Albumin 2.6 L, Globulin 3.4 H, Albumin/Globulin Ratio 0.8 L 03/18/22 10:24: POC Glucose 236 H 03/18/22 12:30: Urine HCG, Qual Negative I & O for Labs for Last 24 Hours: Intake & Output 03/15/22 03/16/22 03/17/22 03/18/22 23:59 23:59 23:59 23:59 Intake Total 2250 / 2250 4142 / 4142 1881 / 1881 1982 Output Total 2125 / 2375 400 / 400 1125 / 1125 Balance 2250 / 1500 2017 / 176 1481 / 1481 858 / 858 Weight 125 lb 107 lb 6.9 oz 106 lb 6.9 oz 106 lb 5.989 oz Microbiology Reports for the Last 24 Hours: Microbiology 03/15/22 20:00 Leg,Left - Left Gram Stain - Final 03/15/22 20:00 Leg,Left - Left Wound Culture - Preliminary Gram Negative Rods Gram Positive Cocci 03/15/22 14:04 Leg,Left - Wound Gram Stain - Final 03/15/22 14:04 Leg,Left - Wound Wound Culture - Preliminary Gram Negative Rods Staphylococcus epidermidis 03/15/22 15:10 Urine,Clean Catch Urine Culture - Final NO GROWTH AFTER 48 HOURS 03/15/22 13:14 Blood Blood Culture - Preliminary NO GROWTH AFTER 48 HOURS 03/15/22 13:14 Blood Blood Culture - Preliminary NO GROWTH AFTER 48 HOURS Assessment and Plan *Assessment and plan (1) Status post below-knee amputation of left lower extremity: Status: Acute Category: Surgical Code(s): Z89.512 - Acquired absence of left leg below knee (2) Gangrene of lower extremity: Status: Acute Category: Medical Code(s): I96 - Gangrene, not elsewhere classified Plan Pressure dressing placed patient taken urgently to the OR for irrigation debridement wound VAC change and cauterization of vessel
[2022-03-18 14:44] LABS: POC Glucose,Bedside 171 (70-110)
--- NOTE | 2022-03-18 16:38 | CARE MANAGER ---
Addendum entered by Marizol Poole RN 03/21/22 11:41: Met with patient this morning to discuss discharge planning needs. Patient stated that she plans to discharge home and that she has family who are able to help her. I discussed with her, that she would greatly benefit from a SNF stay, but she adamantly refused. Original Note: [facility] due to planned IV antibiotics and wound vac. Patient's information faxed to [facility] today for review.
[2022-03-18 16:41] LABS: POC Glucose,Bedside 188 (70-110)
--- NOTE | 2022-03-18 16:52 | PC.NURSE ---
PT IS RESTING IN BED. PT HAS BEEN VERY DROWSY SINCE ARRIVING BACK FROM THE OR. POST OP VSS. WOUND VAC NOTED TO LLE. REINFORCED NEEDED. LUNG SOUNDS CLEAR. PT HAS MULTIPLE AREAS OF ULCERATIONS NOTED TO BILATERAL DIGITS AND BLE. REDNESS NOTED TO BUTTOCKS AND SHITAL AREA. TURNED AND REPOSITIONED IN BED. WILL CONTINUE TO MONITOR.
[2022-03-18 22:35] LABS: POC Glucose,Bedside 159 (70-110)
[2022-03-19] VITALS (10 sets, daily range): BP systolic 104–117; BP diastolic 66–75; PULSE 99–120; RESP 18–22; TEMP 36.6–36.9; O2SAT 96–99; BMI 29.7
[2022-03-19 06:26] LABS: POC Glucose,Bedside 130 (70-110)
--- NOTE | 2022-03-19 06:27 | PC.NURSE ---
Pt has only been answering yes/no questions. Pt admitted pain when asked 1x and was administered PO PRN pain medication. Wound vac to left leg is draining serosanguineous fluid. Hernandez in place draing clear yellow urine. Pt vital signs have remained WNL. Pt tolerating RA. Call light within reach.
[2022-03-19 07:09] LABS: Chloride 109 mmol/L (98-107); Potassium 3.7 mmoL/L (3.5-5.1); Sodium 135 mmol/L (136-145)
[2022-03-19 07:11] LABS: Alanine Aminotransferase 26 U/L (12-78); Aspartate Amino Transferase 84 U/L (14-36); Blood Urea Nitrogen 10 mg/dl (7-17); Creatinine Clearance Estimated 97 mL/min (50-200); Estimated Glomerular Filt Rate 106 ml/min (>60); GFR (African American) 129 ML/MIN (>60)
[2022-03-19 07:12] LABS: Albumin Level 2.2 g/dl (3.5-5.0); Albumin/Globulin Ratio 0.7 (1.1-1.8); Alkaline Phosphatase 123 U/L (38-126); Anion Gap 7.7 mEq/L (5-15); Bilirubin,Total 0.5 mg/dl (0.2-1.3); Calcium 7.2 mg/dl (8.4-10.2); Carbon Dioxide 22 mmol/L (22.0-30.0); Glucose 120 mg/dl (74-100); Total Protein,Serum 5.2 g/dl (6.3-8.2)
[2022-03-19 07:23] LABS: Basophils # 0.1 K/mm3 (0-0.2); Basophils % 0.6 % (0.1-2.0); Eosinophils # 0.2 K/mm3 (0.0-0.4); Eosinophils % 1.4 % (0.1-12.0); Hematocrit 23.7 % (37.0-47.0); Lymphocytes # 1.9 K/mm3 (0.7-4.5); Lymphocytes % 12.9 % (10-50); Mean Corpuscular HGB Conc 33.7 g/dL (31.8-35.4); Mean Corpuscular Hemoglobin 27.9 pg (27.0-31.2); Mean Corpuscular Volume 82.8 fl (81-99); Mean Platelet Volume 7.7 fl (7.4-10.4); Monocytes # 0.7 K/mm3 (0.1-1.0); Monocytes % 4.5 % (1.7-9.3); Neutrophils # 11.8 K/mm3 (1.8-7.8); Neutrophils % 80.7 % (37.0-80.0); Platelet Count 559 K/mm3 (142-424); Red Blood Count 2.87 M/mm3 (4.20-5.40); Red Cell Distribution Width 17.1 % (11.5-17.5); White Blood Count 14.6 K/mm3 (4.8-10.8)
--- NOTE | 2022-03-19 07:46 | EXP.ORTH.PN ---
Subjective *Date: 03/19/22 *Time: 07:46 Interval history: Patient reports feeling better today. Had one episode of pain during night. Otherwise stable. Ortho Exam (Inpt) Vital signs and Labs for Last 24 Hours: Temp Pulse Resp BP Pulse Ox 98.4 F 105 H 18 116/73 97 03/19/22 04:00 03/19/22 07:35 03/19/22 04:00 03/19/22 04:00 03/19/22 04:00 Laboratory Results - last 24 hr 03/18/22 08:37: WBC 19.3 H D, RBC 3.59 L, Hgb 9.9 L, Hct 30.4 L, MCV 84.6, MCH 27.6, MCHC 32.6, RDW 16.8, Plt Count 562 H, MPV 7.4, Neut % (Auto) 86.3 H, Lymph % (Auto) 7.9 L, [place] % (Auto) 3.2, Eos % (Auto) 2.1, Baso % (Auto) 0.5, Neut # (Auto) 16.7 H, Lymph # (Auto) 1.5, [place] # (Auto) 0.6, Eos # (Auto) 0.4, Baso # (Auto) 0.1, Total Counted 100, Neutrophils % (Manual) 88 H, Lymphocytes % (Manual) 10, Monocytes % (Manual) 1 L, Eosinophils % (Manual) 1, Platelet Estimate Moderate increase, RBC Morphology Normal 03/18/22 08:37: Sodium 136, Potassium 4.7 D, Chloride 107, Carbon Dioxide 18 L, Anion Gap 15.7 H, BUN 12, Creatinine 0.70, Estimated Creat Clear 74, Estimated GFR 89, Est GFR ( Amer) 108, Glucose 204 H, Calcium 7.8 L, Total Bilirubin 1.1, AST 53 H, ALT 26, Alkaline Phosphatase 156 H, Total Protein 6.0 L, Albumin 2.6 L, Globulin 3.4 H, Albumin/Globulin Ratio 0.8 L 03/18/22 10:24: POC Glucose 236 H 03/18/22 12:30: Urine HCG, Qual Negative 03/18/22 14:38: POC Glucose 171 H 03/18/22 16:23: POC Glucose 188 H 03/18/22 20:10: POC Glucose 159 H 03/19/22 06:19: POC Glucose 130 H 03/19/22 06:39: WBC 14.6 H, RBC 2.87 L, Hgb 8.0 L D, Hct 23.7 L, MCV 82.8, MCH 27.9, MCHC 33.7, RDW 17.1, Plt Count 559 H, MPV 7.7, Neut % (Auto) 80.7 H, Lymph % (Auto) 12.9, [place] % (Auto) 4.5, Eos % (Auto) 1.4, Baso % (Auto) 0.6, Neut # (Auto) 11.8 H, Lymph # (Auto) 1.9, [place] # (Auto) 0.7, Eos # (Auto) 0.2, Baso # (Auto) 0.1 03/19/22 06:39: Sodium 135 L, Potassium 3.7 D, Chloride 109 H, Carbon Dioxide 22, Anion Gap 7.7, BUN 10, Creatinine 0.60, Estimated Creat Clear 97, Estimated GFR 106, Est GFR ( Amer) 129, Glucose 120 H D, Calcium 7.2 L, Total Bilirubin 0.5, AST 84 H D, ALT 26, Alkaline Phosphatase 123, Total Protein 5.2 L, Albumin 2.2 L D, Globulin 3.0, Albumin/Globulin Ratio 0.7 L I & O for Labs for Last 24 Hours: Intake & Output 03/16/22 03/17/22 03/18/22 03/19/22 23:59 23:59 23:59 23:59 Intake Total 4142 / 4142 1881 / 1881 2671 / 2731 60 / 60 Output Total 2125 / 2375 400 / 400 1125 / 1125 400 / 400 Balance 2016 1481 / 1481 1546 / 1606 -340 / -340 Weight 107 lb 6.9 oz 106 lb 6.9 oz 106 lb 5.989 oz 119 lb 6 oz Microbiology Reports for the Last 24 Hours: Microbiology 03/15/22 20:00 Leg,Left - Left Gram Stain - Final 03/15/22 20:00 Leg,Left - Left Wound Culture - Preliminary Gram Negative Rods Gram Positive Cocci 03/15/22 14:04 Leg,Left - Wound Gram Stain - Final 03/15/22 14:04 Leg,Left - Wound Wound Culture - Preliminary Gram Negative Rods Staphylococcus epidermidis Findings:: LLE: wound vac in place with no leaks, scant drainage through suction. Assessment and Plan *Assessment and plan (1) Status post below-knee amputation of left lower extremity: Status: Acute Category: Surgical Code(s): Z89.512 - Acquired absence of left leg below knee (2) Gangrene of lower extremity: Status: Acute Category: Medical Code(s): I96 - Gangrene, not elsewhere classified (3) Septic shock: Status: Acute Category: Medical Code(s): A41.9 - Sepsis, unspecified organism; R65.21 - Severe sepsis with septic shock Plan Patient had to return to OR yesterday for cauterization of small vessel following VAC change. Had repeat I&D. The tissues looked better some devitalized tissue was removed. She still has a long road for recover to clear infection. Going to need extended wound [facility]
[2022-03-19 08:48] LABS: C-Reactive Protein 145.1 mg/L (0-4)
--- NOTE | 2022-03-19 10:13 | EXP.PHA.PN ---
Subjective *Date: 03/19/22 *Time: 10:13 Medical Exam Vital signs and Labs for Last 24 Hours: Vital Signs Temp Pulse Pulse Resp BP BP BP 03/19/22 07:41 98.0 F 106 H 20 117/75 03/19/22 07:35 105 H 03/19/22 04:00 98.4 F 99 H 18 116/73 03/19/22 03:45 100 H 03/19/22 00:00 110 H 03/19/22 00:00 98.4 F 108 H 20 107/72 L 03/18/22 20:00 104 H 03/18/22 20:00 100 H 03/18/22 21:45 108 H 21 111/69 03/18/22 20:45 107 H 22 109/69 L 03/18/22 19:45 104 H 15 116/71 03/18/22 20:00 97.6 F 107 H 16 110/68 03/18/22 18:45 100 H 16 111/73 03/18/22 17:45 97 H 14 107/67 L 03/18/22 17:52 97.3 F L 101 H 18 109/64 L 03/18/22 14:40 103 H 20 116/65 03/18/22 14:30 103 H 20 111/70 03/18/22 17:15 99 H 16 97/64 L 03/18/22 16:45 95 H 16 99/66 L 03/18/22 16:15 96 H 16 95/64 L 03/18/22 15:53 96 H 03/18/22 15:45 98 H 18 107/69 L 03/18/22 15:30 99 H 16 96/63 L 03/18/22 15:12 99 H 16 100/64 L 03/18/22 15:06 99.0 F 102 H 16 116/70 03/18/22 14:20 98.4 F 104 H 18 116/66 03/18/22 12:05 19 03/18/22 12:00 114 H 03/18/22 11:11 98.4 F 116 H 18 116/74 03/18/22 14:24 98.4 F 103 H 16 116/68 Pulse Ox 03/19/22 07:41 99 03/19/22 07:35 03/19/22 04:00 97 03/19/22 03:45 03/19/22 00:00 03/19/22 00:00 98 03/18/22 20:00 100 03/18/22 20:00 03/18/22 21:45 98 03/18/22 20:45 100 03/18/22 19:45 100 03/18/22 20:00 99 03/18/22 18:45 95 03/18/22 17:45 96 03/18/22 17:52 97 03/18/22 14:40 97 03/18/22 14:30 96 03/18/22 17:15 96 03/18/22 16:45 96 03/18/22 16:15 97 03/18/22 15:53 03/18/22 15:45 96 03/18/22 15:30 94 L 03/18/22 15:12 96 03/18/22 15:06 96 03/18/22 14:20 98 03/18/22 12:05 03/18/22 12:00 03/18/22 11:11 97 03/18/22 14:24 Intake and Output 03/18/22 03/19/22 03/19/22 23:59 07:59 15:59 Intake Total 60 / 540 480 / 540 Output Total 400 / 600 200 / 600 Balance -340 / -60 280 / -60 Intake: Intake, Oral Amount 60 / 540 480 / 540 Output: Output, Urine Amount 400 / 600 200 / 600 Other: Number of Unmeasured Voids 0 0 0 Weight 54.148 kg Patient Weight 03/19/22 23:59 Weight 54.148 kg Laboratory Results - last 24 hr 03/18/22 10:24: POC Glucose 236 H 03/18/22 12:30: Urine HCG, Qual Negative 03/18/22 14:38: POC Glucose 171 H 03/18/22 16:23: POC Glucose 188 H 03/18/22 20:10: POC Glucose 159 H 03/19/22 06:19: POC Glucose 130 H 03/19/22 06:39: WBC 14.6 H, RBC 2.87 L, Hgb 8.0 L D, Hct 23.7 L, MCV 82.8, MCH 27.9, MCHC 33.7, RDW 17.1, Plt Count 559 H, MPV 7.7, Neut % (Auto) 80.7 H, Lymph % (Auto) 12.9, [place] % (Auto) 4.5, Eos % (Auto) 1.4, Baso % (Auto) 0.6, Neut # (Auto) 11.8 H, Lymph # (Auto) 1.9, [place] # (Auto) 0.7, Eos # (Auto) 0.2, Baso # (Auto) 0.1 03/19/22 06:39: C-Reactive Protein 145.1 H 03/19/22 06:39: Sodium 135 L, Potassium 3.7 D, Chloride 109 H, Carbon Dioxide 22, Anion Gap 7.7, BUN 10, Creatinine 0.60, Estimated Creat Clear 97, Estimated GFR 106, Est GFR ( Amer) 129, Glucose 120 H D, Calcium 7.2 L, Total Bilirubin 0.5, AST 84 H D, ALT 26, Alkaline Phosphatase 123, Total Protein 5.2 L, Albumin 2.2 L D, Globulin 3.0, Albumin/Globulin Ratio 0.7 L I & O for Labs for Last 24 Hours: Intake & Output 03/16/22 03/17/22 03/18/22 03/19/22 23:59 23:59 23:59 23:59 Intake Total 4142 / 4142 1881 / 1881 2671 / 2731 540 / 540 Output Total 2125 / 2375 400 / 400 1125 / 1125 600 / 600 Balance 2016 1481 / 1481 1546 / 1606 -60 / -60 Weight 48.73 kg 48.276 kg 48.251 kg 54.148 kg Microbiology Reports for the Last 24 Hours: Microbiology 03/15/22 20:00 Leg,Left - Left Gram Stain - Final 03/15/22 20:00 Leg,Left - Left Wound Culture - Preliminary Gram Negative Rods Gram Positive
--- NOTE | 2022-03-19 14:18 | EXP.ACUTE.PN ---
Subjective *Date: 03/19/22 *Time: 14:18 Interval history: Notes on the events of yesterday are reviewed. As I see her at this time she has just been medicated with morphine. She is in no distress. The stump is visible with a wound VAC in place draining very little. Her hemoglobin of 8 is noted. We should type her in case she needs additional transfusion. Medical Exam Vital signs and Labs for Last 24 Hours: Vital Signs Temp Pulse Pulse Resp BP BP BP 03/19/22 12:00 120 H 03/19/22 12:13 98.2 F 117 H 22 114/72 03/19/22 07:41 98.0 F 106 H 20 117/75 03/19/22 07:35 105 H 03/19/22 04:00 98.4 F 99 H 18 116/73 03/19/22 03:45 100 H 03/19/22 00:00 110 H 03/19/22 00:00 98.4 F 108 H 20 107/72 L 03/18/22 20:00 104 H 03/18/22 20:00 100 H 03/18/22 21:45 108 H 21 111/69 03/18/22 20:45 107 H 22 109/69 L 03/18/22 19:45 104 H 15 116/71 03/18/22 20:00 97.6 F 107 H 16 110/68 03/18/22 18:45 100 H 16 111/73 03/18/22 17:45 97 H 14 107/67 L 03/18/22 17:52 97.3 F L 101 H 18 109/64 L 03/18/22 14:40 103 H 20 116/65 03/18/22 14:30 103 H 20 111/70 03/18/22 17:15 99 H 16 97/64 L 03/18/22 16:45 95 H 16 99/66 L 03/18/22 16:15 96 H 16 95/64 L 03/18/22 15:53 96 H 03/18/22 15:45 98 H 18 107/69 L 03/18/22 15:30 99 H 16 96/63 L 03/18/22 15:12 99 H 16 100/64 L 03/18/22 15:06 99.0 F 102 H 16 116/70 03/18/22 14:20 98.4 F 104 H 18 116/66 03/18/22 14:24 98.4 F 103 H 16 116/68 Pulse Ox 03/19/22 12:00 03/19/22 12:13 96 03/19/22 07:41 99 03/19/22 07:35 03/19/22 04:00 97 03/19/22 03:45 03/19/22 00:00 03/19/22 00:00 98 03/18/22 20:00 100 03/18/22 20:00 03/18/22 21:45 98 03/18/22 20:45 100 03/18/22 19:45 100 03/18/22 20:00 99 03/18/22 18:45 95 03/18/22 17:45 96 03/18/22 17:52 97 03/18/22 14:40 97 03/18/22 14:30 96 03/18/22 17:15 96 03/18/22 16:45 96 03/18/22 16:15 97 03/18/22 15:53 03/18/22 15:45 96 03/18/22 15:30 94 L 03/18/22 15:12 96 03/18/22 15:06 96 03/18/22 14:20 98 03/18/22 14:24 Intake and Output 03/19/22 03/19/22 03/19/22 03:59 11:59 19:59 Intake Total 60 / 1828 480 / 1828 240 / 240 Output Total 400 / 600 200 / 600 Balance -340 / 1228 280 / 1228 240 / 240 Intake: Intake, Oral Amount 60 / 540 480 / 540 240 / 240 Output: Output, Urine Amount 400 / 600 200 / 600 Other: Number of Unmeasured Voids 0 0 Weight 119 lb 6 oz Laboratory Results - last 24 hr 03/18/22 14:38: POC Glucose 171 H 03/18/22 16:23: POC Glucose 188 H 03/18/22 20:10: POC Glucose 159 H 03/19/22 06:19: POC Glucose 130 H 03/19/22 06:39: WBC 14.6 H, RBC 2.87 L, Hgb 8.0 L D, Hct 23.7 L, MCV 82.8, MCH 27.9, MCHC 33.7, RDW 17.1, Plt Count 559 H, MPV 7.7, Neut % (Auto) 80.7 H, Lymph % (Auto) 12.9, [place] % (Auto) 4.5, Eos % (Auto) 1.4, Baso % (Auto) 0.6, Neut # (Auto) 11.8 H, Lymph # (Auto) 1.9, [place] # (Auto) 0.7, Eos # (Auto) 0.2, Baso # (Auto) 0.1 03/19/22 06:39: C-Reactive Protein 145.1 H 03/19/22 06:39: Sodium 135 L, Potassium 3.7 D, Chloride 109 H, Carbon Dioxide 22, Anion Gap 7.7, BUN 10, Creatinine 0.60, Estimated Creat Clear 97, Estimated GFR 106, Est GFR ( Amer) 129, Glucose 120 H D, Calcium 7.2 L, Total Bilirubin 0.5, AST 84 H D, ALT 26, Alkaline Phosphatase 123, Total Protein 5.2 L, Albumin 2.2 L D, Globulin 3.0, Albumin/Globulin Ratio 0.7 L I & O for Labs for Last 24 Hours: Intake & Output 03/17/22 03/18/22 03/19/22 03/20/22 11:59 11:59 11:59 11:59 Intake Total 4141 / 4141 1819 / 1819 1828 / 1828 240 / 240 Output Total 1475 / 1475 1125 / 1125 600 / 600 Balance 2666 / 2666 694 / 694 1228 / 1228 240 / 240 Weight 106 lb 6.9 oz 106 lb 5.989 oz 119 lb 6 oz Microbiology Reports for the Last 24 Hours: Microbiology 03/15/22 20:00 Leg,Left - Left
--- NOTE | 2022-03-19 18:12 | PC.NURSE ---
PT IS RESTING IN BED.ALERT AND ORIENTED X3. MEDICATED PER MAR FOR DISCOMFORT. EATING AND DRINKING FAIR. LUNG SOUNDS CLEAR. ABDOMEN SOFT/NON TENDER WITH ACTIVE BOWEL SOUNDS. VSS. WOUND VAC NOTED TO LLE. MULTIPLE AREAS OF ULCERATIONS NOTED TO BILATERAL DIGITS, LLE AND RIGHT STUMP. REDNESS NOTED TO BUTTOCKS/SHITAL AREA. TURNED AND REPOSITIONS INDEPENDENTLY IN BED. WILL CONTINUE TO MONITOR.
--- NOTE | 2022-03-19 22:46 | HMH.PHAINT ---
vancomycin trough called to aly with nightwatch 11.0, no changes in current vanc dosing at this time.
--- NOTE | 2022-03-19 22:58 | PC.NURSE ---
Isaac from lab called to let this RN know that the 2 units of PRBC on hold are ready. Patient's name and verified x2.
[2022-03-20] VITALS (11 sets, daily range): BP systolic 95–123; BP diastolic 65–85; PULSE 95–120; RESP 17–22; TEMP 36.6–36.9; O2SAT 95–100; BMI 31.1
--- NOTE | 2022-03-20 06:20 | PC.NURSE ---
no change from previous assessment, pt medicated x1 for pain, pt moans out often and when asked whats wrong pt states nothing, when asked if hurting pt will state no, left bka with wound vac intact, pt turned q2 for some mild redness on buttock area, vss, telemetry reveals sinus tach with bbb, no acute distress noted, f/c to bsd with purulent cloudy urine noted.
[2022-03-20 07:13] LABS: Basophils # 0.1 K/mm3 (0-0.2); Basophils % 0.5 % (0.1-2.0); Eosinophils # 0.6 K/mm3 (0.0-0.4); Eosinophils % 4.3 % (0.1-12.0); Hematocrit 24.1 % (37.0-47.0); Lymphocytes # 1.7 K/mm3 (0.7-4.5); Lymphocytes % 12.5 % (10-50); Mean Corpuscular HGB Conc 33.4 g/dL (31.8-35.4); Mean Corpuscular Hemoglobin 27.6 pg (27.0-31.2); Mean Corpuscular Volume 82.7 fl (81-99); Mean Platelet Volume 7.1 fl (7.4-10.4); Monocytes # 0.7 K/mm3 (0.1-1.0); Monocytes % 4.8 % (1.7-9.3); Neutrophils # 10.6 K/mm3 (1.8-7.8); Neutrophils % 77.8 % (37.0-80.0); Platelet Count 570 K/mm3 (142-424); Red Blood Count 2.92 M/mm3 (4.20-5.40); Red Cell Distribution Width 17.6 % (11.5-17.5); White Blood Count 13.7 K/mm3 (4.8-10.8)
[2022-03-20 07:22] LABS: Alanine Aminotransferase 32 U/L (12-78); Albumin Level 2.4 g/dl (3.5-5.0); Albumin/Globulin Ratio 0.7 (1.1-1.8); Alkaline Phosphatase 133 U/L (38-126); Anion Gap 7.1 mEq/L (5-15); Aspartate Amino Transferase 71 U/L (14-36); Bilirubin,Total 0.4 mg/dl (0.2-1.3); Blood Urea Nitrogen 9 mg/dl (7-17); Calcium 7.4 mg/dl (8.4-10.2); Carbon Dioxide 22 mmol/L (22.0-30.0); Chloride 111 mmol/L (98-107); Creatinine Clearance Estimated 102 mL/min (50-200); Estimated Glomerular Filt Rate 106 ml/min (>60); GFR (African American) 129 ML/MIN (>60); Globulin 3.3 g/dL (1.3-3.2); Glucose 109 mg/dl (74-100); Potassium 4.1 mmoL/L (3.5-5.1); Sodium 136 mmol/L (136-145); Total Protein,Serum 5.7 g/dl (6.3-8.2)
--- NOTE | 2022-03-20 08:00 | ECG_ITS ---
APPROVED REPORT Exam: Resting ECG HR:113 bpm ECG Measurements Heart Rate 113 AXES QRSd 137 QRS -36 QT 343 T 75 QTc 410 Conclusion Sinust tachycardia Bi-atrial abnormality LEFT AXIS DEVIATION [QRS AXIS < -30] LEFT BUNDLE BRANCH BLOCK [120+ ms QRS DURATION, 80+ ms Q/S IN V1/V2, 85+ ms R IN I/aVL/V5/V6] ABNORMAL ECG UNCONFIRMED REPORT Electronically signed by : Kennedy Selby MD 03/20/2022 22:21:51
--- NOTE | 2022-03-20 08:04 | PC.NURSE ---
Patient's heart rate increased to 122 but did not sustain more than 5 minutes. EKG obtained due to possible rhythm change. EKG reads a flutter/tachycardia with rvr. Patient in no distress, VS stable, and no complaints of pain.
--- NOTE | 2022-03-20 08:10 | PC.NURSE ---
Dr. Simmons in unit at time, read ekg, believes pt is still sinus tach. No orders, will notify Dr. Maldonado
[2022-03-20 10:01] LABS: POC Glucose,Bedside 197 (70-110)
[2022-03-20 10:01] LABS: POC Glucose,Bedside 116 (70-110)
[2022-03-20 10:01] LABS: POC Glucose,Bedside 291 (70-110)
[2022-03-20 10:01] LABS: POC Glucose,Bedside 170 (70-110)
--- NOTE | 2022-03-20 11:50 | EXP.PHA.CONS ---
Pharmacy Consult Date: 03/20/22 Time: 11:50 Referring provider: CAROL Reason for Consult:: PHARMACY CONSULTED TO MANAGE VANCOMYCIN THERAPY Allergies Allergy/AdvReac Type Severity Reaction Status Date / Time No Known Allergies Allergy Verified 03/15/22 12:10 Home Medications Medication Instructions Recorded Confirmed Type amitriptyline 100 mg tablet 100 mg PO HS Depression/SLEEP 10/22/17 03/15/22 History aspirin 81 mg chewable tablet 81 mg PO DAILY Heart disease 10/02/18 03/15/22 History cyanocobalamin (vitamin B-12) 1,000 mcg PO DAILY Supplement 09/04/19 03/15/22 History 1,000 mcg tablet gabapentin 600 mg tablet 600 mg PO TID neuropathy 09/04/19 03/15/22 History insulin glargine 100 unit/mL 40 unit SQ HS Diabetes 09/16/20 03/16/22 History subcutaneous solution insulin lispro 100 unit/mL 10 unit SQ AC Diabetes 09/16/20 03/16/22 History subcutaneous cartridge atorvastatin 40 mg tablet 40 mg PO DAILY Cholesterol 11/15/21 03/15/22 History cholecalciferol (vitamin D3) 25 25 mcg PO DAILY Supplement 01/10/22 03/15/22 History mcg (1,000 unit) capsule sacubitril 24 mg-valsartan 26 mg 1 tab PO BID bp #180 tabs 01/24/22 03/15/22 Rx tablet carvedilol 12.5 mg tablet 12.5 mg PO BID htn #180 tabs 01/28/22 03/15/22 Rx ticagrelor 90 mg tablet 90 mg PO BID Heart disease/blood 01/28/22 03/16/22 Rx thinner #60 tabs furosemide 40 mg tablet 40 mg PO BID PRN Edema #60 tabs 02/15/22 03/15/22 Rx hydrocodone 5 mg-acetaminophen 325 1 tab PO Q4H PRN post op pain #30 03/03/22 03/16/22 Rx mg tablet tabs cephalexin 500 mg capsule 500 mg PO QID post op infection 03/15/22 03/15/22 History New Prescriptions to Start Prescriptions: Height: 1.35 m Weight: 56.841 kg Laboratory Results:: Laboratory Results - last 24 hr 03/19/22 11:10: POC Glucose 170 H 03/19/22 16:26: POC Glucose 291 H 03/19/22 20:42: POC Glucose 197 H 03/19/22 21:35: Blood Type O Positive, Antibody Screen Negative, Crossmatch (AHG) See Detail 03/19/22 21:35: Vancomycin Trough 11.0 H 03/20/22 05:29: POC Glucose 116 H 03/20/22 07:02: WBC 13.7 H, RBC 2.92 L, Hgb 8.0 L, Hct 24.1 L, MCV 82.7, MCH 27.6, MCHC 33.4, RDW 17.6 H, Plt Count 570 H, MPV 7.1 L, Neut % (Auto) 77.8, Lymph % (Auto) 12.5, [place] % (Auto) 4.8, Eos % (Auto) 4.3, Baso % (Auto) 0.5, Neut # (Auto) 10.6 H, Lymph # (Auto) 1.7, [place] # (Auto) 0.7, Eos # (Auto) 0.6 H, Baso # (Auto) 0.1 03/20/22 07:02: Sodium 136, Potassium 4.1, Chloride 111 H, Carbon Dioxide 22, Anion Gap 7.1, BUN 9, Creatinine 0.60, Estimated Creat Clear 102, Estimated GFR 106, Est GFR ( Amer) 129, Glucose 109 H, Calcium 7.4 L, Total Bilirubin 0.4, AST 71 H, ALT 32, Alkaline Phosphatase 133 H, Total Protein 5.7 L, Albumin 2.4 L, Globulin 3.3 H, Albumin/Globulin Ratio 0.7 L Medical History: Medical History (Updated 03/19/22 @ 14:22 by Hugh Maldonado MD) Abnormal ankle brachial index (ALAN) Abnormal EKG Acute urinary tract infection Anemia Arthralgia of ankle Bacteremia due to Escherichia coli CAD (coronary artery disease) Campylobacter diarrhea Cellulitis of left foot Chronic systolic heart failure Depression Dermatitis Diabetes mellitus, type 2 Diabetic infection of right foot Diabetic ulcer of right foot associated with diabetes mellitus due to underlying condition, with fat layer exposed Dizziness Dyspnea Elevated troponin Encounter for pre-operative cardiovascular clearance Encounter for wound care Fever Foot abscess, right Gangrene of right foot HHD (hypertensive heart disease) History of CVA (cerebrovascular accident) HLD (hyperlipidemia) Hypokalemia Hyponatremia Hypotension Ischemic cardiomyopathy Left foot infection Left shift MRSA (methicillin resistant staph aureus) culture positive Nail dystrophy Non-healing wound NYHA Class II cardiovascular function Osteomyelitis Postoperative dehiscence of skin wound Postoperative wound dehiscence Postoperative wound dehiscence Pulmonary hypertension, moderate to
[2022-03-20 12:30] LABS: POC Glucose,Bedside 324 (70-110)
--- NOTE | 2022-03-20 14:38 | EXP.ACUTE.PN ---
Subjective *Date: 03/20/22 *Time: 14:42 Interval history: She has shown some sinus tachycardia. See EKG. Her regular medications of carvedilol and Entresto have not been restarted. Blood pressure has not been elevated. I will restart the carvedilol at a 6.25 mg twice daily dose. If she tolerates this well Entresto will be added. She is receiving atorvastatin. She has been on sliding scale insulin. I will restart her glargine insulin at a half dose of 20 units at bedtime. Medical Exam Vital signs and Labs for Last 24 Hours: Vital Signs Temp Pulse Pulse Resp BP Pulse Ox 03/20/22 12:00 120 H 03/20/22 08:00 110 H 03/20/22 11:39 98.2 F 117 H 18 116/78 96 03/20/22 08:04 97.8 F 111 H 18 116/84 96 03/20/22 07:40 97.8 F 111 H 18 116/84 96 03/20/22 04:23 110 H 03/20/22 04:00 98 F 113 H 22 102/70 L 95 03/20/22 00:00 110 H 03/20/22 00:00 107 H 22 109/75 L 98 03/19/22 20:00 102 H 03/19/22 20:00 98 F 110 H 20 104/71 L 96 03/19/22 20:00 106 H 97 03/19/22 16:00 109 H 03/19/22 15:26 98.3 F 106 H 107/66 L 97 Intake and Output 03/20/22 03/20/22 03/20/22 03:59 11:59 19:59 Intake Total 1440 / 2040 240 / 240 Output Total 0 / 875 575 / 875 0 / 0 Balance 0 / 1165 865 / 1165 240 / 240 Intake: Intake, Oral Amount 240 / 840 240 / 240 Intake, Total IV Amount 1200 / 1200 0.9 % Sodium Chloride 1,000 ml 850 / 850 @ 100 mls/hr IV .Q10H [facility] Rx#: [id number] Cefepime HCl 2 gm In 0.9 % 100 / 100 Sodium Chloride 100 ml @ 200 mls/hr IV Q12H [facility] Rx#:[id number] Vancomycin HCl 1,000 mg In 0.9 250 / 250 % Sodium Chloride 250 ml @ 125 mls/hr IV Q18H [facility] Rx#:[id number] Output: Output, Urine Amount 0 / 300 0 / 300 0 / 0 Output, Urine Amount (Catheter) 575 / 575 Hernandez 575 / 575 Other: Number of Unmeasured Voids 0 0 0 Weight 125 lb 5 oz Laboratory Results - last 24 hr 03/19/22 11:10: POC Glucose 170 H 03/19/22 16:26: POC Glucose 291 H 03/19/22 20:42: POC Glucose 197 H 03/19/22 21:35: Blood Type O Positive, Antibody Screen Negative, Crossmatch (AHG) See Detail 03/19/22 21:35: Vancomycin Trough 11.0 H 03/20/22 05:29: POC Glucose 116 H 03/20/22 07:02: WBC 13.7 H, RBC 2.92 L, Hgb 8.0 L, Hct 24.1 L, MCV 82.7, MCH 27.6, MCHC 33.4, RDW 17.6 H, Plt Count 570 H, MPV 7.1 L, Neut % (Auto) 77.8, Lymph % (Auto) 12.5, [place] % (Auto) 4.8, Eos % (Auto) 4.3, Baso % (Auto) 0.5, Neut # (Auto) 10.6 H, Lymph # (Auto) 1.7, [place] # (Auto) 0.7, Eos # (Auto) 0.6 H, Baso # (Auto) 0.1 03/20/22 07:02: Sodium 136, Potassium 4.1, Chloride 111 H, Carbon Dioxide 22, Anion Gap 7.1, BUN 9, Creatinine 0.60, Estimated Creat Clear 102, Estimated GFR 106, Est GFR ( Amer) 129, Glucose 109 H, Calcium 7.4 L, Total Bilirubin 0.4, AST 71 H, ALT 32, Alkaline Phosphatase 133 H, Total Protein 5.7 L, Albumin 2.4 L, Globulin 3.3 H, Albumin/Globulin Ratio 0.7 L 03/20/22 12:13: POC Glucose 324 H* I & O for Labs for Last 24 Hours: Intake & Output 03/18/22 03/19/22 03/20/22 03/21/22 11:59 11:59 11:59 11:59 Intake Total 1819 / 1819 1828 / 1828 2040 / 2040 240 / 240 Output Total 1125 / 1125 600 / 600 875 / 875 0 / 0 Balance 694 / 694 1228 / 1228 1165 / 1165 240 / 240 Weight 106 lb 5.989 oz 119 lb 6 oz 125 lb 5 oz Microbiology Reports for the Last 24 Hours: Microbiology 03/15/22 13:14 Blood Blood Culture - Final NO GROWTH AFTER 5 DAYS 03/15/22 13:14 Blood Blood Culture - Final NO GROWTH AFTER 5 DAYS 03/15/22 20:00 Leg,Left - Left Gram Stain - Final 03/15/22 20:00 Leg,Left - Left Wound Culture - Preliminary Gram Negative Rods Staphylococcus epidermidis Head: Present normocephalic Neck: Present normal inspection Respiratory: Present CTA bilaterally; Absent respiratory distress Cardi
--- NOTE | 2022-03-20 16:30 | EXP.ORTH.PN ---
Subjective *Date: 03/20/22 *Time: 16:30 Interval history: Patient doing okay. Had episodes of tachycardia. Medications restarted. Improved since that time. No leaks in the wound VAC. Pain controlled medications. Ortho Exam (Inpt) Vital signs and Labs for Last 24 Hours: Temp Pulse Resp BP Pulse Ox 97.9 F 109 H 17 123/85 100 03/20/22 15:49 03/20/22 15:49 03/20/22 15:49 03/20/22 15:49 03/20/22 15:49 Laboratory Results - last 24 hr 03/19/22 11:10: POC Glucose 170 H 03/19/22 16:26: POC Glucose 291 H 03/19/22 20:42: POC Glucose 197 H 03/19/22 21:35: Blood Type O Positive, Antibody Screen Negative, Crossmatch (AHG) See Detail 03/19/22 21:35: Vancomycin Trough 11.0 H 03/20/22 05:29: POC Glucose 116 H 03/20/22 07:02: WBC 13.7 H, RBC 2.92 L, Hgb 8.0 L, Hct 24.1 L, MCV 82.7, MCH 27.6, MCHC 33.4, RDW 17.6 H, Plt Count 570 H, MPV 7.1 L, Neut % (Auto) 77.8, Lymph % (Auto) 12.5, [place] % (Auto) 4.8, Eos % (Auto) 4.3, Baso % (Auto) 0.5, Neut # (Auto) 10.6 H, Lymph # (Auto) 1.7, [place] # (Auto) 0.7, Eos # (Auto) 0.6 H, Baso # (Auto) 0.1 03/20/22 07:02: Sodium 136, Potassium 4.1, Chloride 111 H, Carbon Dioxide 22, Anion Gap 7.1, BUN 9, Creatinine 0.60, Estimated Creat Clear 102, Estimated GFR 106, Est GFR ( Amer) 129, Glucose 109 H, Calcium 7.4 L, Total Bilirubin 0.4, AST 71 H, ALT 32, Alkaline Phosphatase 133 H, Total Protein 5.7 L, Albumin 2.4 L, Globulin 3.3 H, Albumin/Globulin Ratio 0.7 L 03/20/22 12:13: POC Glucose 324 H* I & O for Labs for Last 24 Hours: Intake & Output 03/17/22 03/18/22 03/19/22 03/20/22 23:59 23:59 23:59 23:59 Intake Total 1881 / 1881 2671 / 2731 1140 / 1140 1680 / 1680 Output Total 400 / 400 1125 / 1125 900 / 900 575 / 575 Balance 1481 / 1481 1546 / 1606 240 / 240 1105 / 1105 Weight 106 lb 6.9 oz 106 lb 5.989 oz 119 lb 6 oz 125 lb 5 oz Microbiology Reports for the Last 24 Hours: Microbiology 03/15/22 13:14 Blood Blood Culture - Final NO GROWTH AFTER 5 DAYS 03/15/22 13:14 Blood Blood Culture - Final NO GROWTH AFTER 5 DAYS 03/15/22 20:00 Leg,Left - Left Gram Stain - Final 03/15/22 20:00 Leg,Left - Left Wound Culture - Preliminary Gram Negative Rods Staphylococcus epidermidis Comment:: Left lower extremity: No redness or streaking up the extremity. Wound VAC in place with no leaks. Mild minimal drainage from the wound VAC. Assessment and Plan *Assessment and plan (1) Status post below-knee amputation of left lower extremity: Status: Acute Category: Surgical Code(s): Z89.512 - Acquired absence of left leg below knee (2) Postoperative wound dehiscence: Status: Acute Category: Medical Code(s): T81.31XA - Disruption of external operation (surgical) wound, not elsewhere classified, initial encounter (3) Anemia: Status: Acute Category: Medical Code(s): D64.9 - Anemia, unspecified (4) Septic shock: Status: Acute Category: Medical Code(s): A41.9 - Sepsis, unspecified organism; R65.21 - Severe sepsis with septic shock (5) Acute hypokalemia: Status: Acute Category: Medical Code(s): E87.6 - Hypokalemia (6) PAD (peripheral artery disease): Status: Chronic Category: Medical Code(s): I73.9 - Peripheral vascular disease, unspecified (7) Ischemic cardiomyopathy: Status: Chronic Category: Medical Code(s): I25.5 - Ischemic cardiomyopathy (8) Chronic systolic heart failure: Status: Chronic Category: Medical Code(s): I50.22 - Chronic systolic (congestive) heart failure (9) CAD (coronary artery disease): Status: Chronic Qualifiers: Coronary Disease-Associated Artery/Lesion type: [place] artery [place] vs. transplanted heart: [place] heart Associated angina: without angina Qualified Code(s): I25.
--- NOTE | 2022-03-20 17:12 | PC.NURSE ---
Pt alert and oriented. Heart rate elevated, Dr. Maldonado aware and carvedilol restarted. Hydrocodone given for pain and morphine given for breakthrough pain. Wound vac clean dry and intact, sanguinous drainage. Dressing on left leg clean dry and intact. Blood pressure stable during shift. No other complaints noted.
[2022-03-20 17:51] LABS: POC Glucose,Bedside 206 (70-110)
[2022-03-20 23:35] LABS: POC Glucose,Bedside 81 (70-110)
[2022-03-21] VITALS (9 sets, daily range): BP systolic 109–128; BP diastolic 64–82; PULSE 60–109; RESP 16–19; TEMP 36.3–36.9; O2SAT 94–99; BMI 31.1
[2022-03-21 06:28] LABS: POC Glucose,Bedside 127 (70-110)
--- NOTE | 2022-03-21 06:34 | PC.NURSE ---
Attempted to call daughter and notify of pt being moved to different room per pt request. Phone number is going straight to voicemail. Pt made aware.
--- NOTE | 2022-03-21 06:38 | PC.NURSE ---
Pt more alert/oriented this shift. Pt has c/o pain 2x in left leg. PRN po pain medication administered, pt states favorable results. Wound vac in plave to left stump draining sanguineous fluid. Hernandez cath in place draining clear yellow urine with sediment. Call light within reach.
[2022-03-21 07:16] LABS: Basophils # 0.1 K/mm3 (0-0.2); Basophils % 0.5 % (0.1-2.0); Eosinophils # 0.6 K/mm3 (0.0-0.4); Eosinophils % 3.8 % (0.1-12.0); Hematocrit 24.7 % (37.0-47.0); Hemoglobin 8.3 g/dL (12.2-16.2); Lymphocytes # 2.4 K/mm3 (0.7-4.5); Lymphocytes % 15.9 % (10-50); Mean Corpuscular HGB Conc 33.4 g/dL (31.8-35.4); Mean Corpuscular Hemoglobin 27.8 pg (27.0-31.2); Mean Corpuscular Volume 83.3 fl (81-99); Mean Platelet Volume 7.6 fl (7.4-10.4); Monocytes # 0.6 K/mm3 (0.1-1.0); Monocytes % 4.3 % (1.7-9.3); Neutrophils # 11.2 K/mm3 (1.8-7.8); Neutrophils % 75.5 % (37.0-80.0); Platelet Count 631 K/mm3 (142-424); Red Blood Count 2.96 M/mm3 (4.20-5.40); Red Cell Distribution Width 17.8 % (11.5-17.5); White Blood Count 14.9 K/mm3 (4.8-10.8)
[2022-03-21 07:26] LABS: Alanine Aminotransferase 33 U/L (12-78); Albumin Level 2.5 g/dl (3.5-5.0); Albumin/Globulin Ratio 0.8 (1.1-1.8); Alkaline Phosphatase 133 U/L (38-126); Anion Gap 8.8 mEq/L (5-15); Aspartate Amino Transferase 62 U/L (14-36); Bilirubin,Total 0.4 mg/dl (0.2-1.3); Blood Urea Nitrogen 11 mg/dl (7-17); Calcium 7.8 mg/dl (8.4-10.2); Carbon Dioxide 21 mmol/L (22.0-30.0); Chloride 109 mmol/L (98-107); Creatinine Clearance Estimated 102 mL/min (50-200); Estimated Glomerular Filt Rate 106 ml/min (>60); GFR (African American) 129 ML/MIN (>60); Globulin 3.2 g/dL (1.3-3.2); Glucose 112 mg/dl (74-100); Potassium 4.8 mmoL/L (3.5-5.1); Sodium 134 mmol/L (136-145); Total Protein,Serum 5.7 g/dl (6.3-8.2)
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
--- NOTE | 2022-03-21 09:08 | EXP.CARD.PN ---
Subjective Subjective Date: 03/21/22 Time: 08:00 Principal diagnosis: sepsis Interval history: Patient resting, denies chest pain or shortness of breath. Denies orthopnea. labs as follow: WBC 14.9, hemoglobin 8.3 and stable, platelet count 631, sodium 134, creatinine 0.6. Systolic blood pressure in the 120s. Prelim echo report shows EF of 30% with no change from previous, patient has AICD in place. Exam Data for Last 24 hours Vital signs and Labs for Last 24 Hours: Temp Pulse Resp BP Pulse Ox 98.4 F 102 H 17 128/73 98 03/21/22 08:00 03/21/22 08:00 03/21/22 08:00 03/21/22 08:00 03/21/22 08:00 Laboratory Results - last 24 hr 03/19/22 11:10: POC Glucose 170 H 03/19/22 16:26: POC Glucose 291 H 03/19/22 20:42: POC Glucose 197 H 03/20/22 05:29: POC Glucose 116 H 03/20/22 12:13: POC Glucose 324 H* 03/20/22 16:44: POC Glucose 206 H 03/20/22 23:27: POC Glucose 81 03/21/22 06:19: POC Glucose 127 H 03/21/22 07:07: WBC 14.9 H, RBC 2.96 L, Hgb 8.3 L, Hct 24.7 L, MCV 83.3, MCH 27.8, MCHC 33.4, RDW 17.8 H, Plt Count 631 H, MPV 7.6, Neut % (Auto) 75.5, Lymph % (Auto) 15.9, [place] % (Auto) 4.3, Eos % (Auto) 3.8, Baso % (Auto) 0.5, Neut # (Auto) 11.2 H, Lymph # (Auto) 2.4, [place] # (Auto) 0.6, Eos # (Auto) 0.6 H, Baso # (Auto) 0.1 03/21/22 07:07: Sodium 134 L, Potassium 4.8, Chloride 109 H, Carbon Dioxide 21 L, Anion Gap 8.8, BUN 11, Creatinine 0.60, Estimated Creat Clear 102, Estimated GFR 106, Est GFR ( Amer) 129, Glucose 112 H, Calcium 7.8 L, Total Bilirubin 0.4, AST 62 H, ALT 33, Alkaline Phosphatase 133 H, Total Protein 5.7 L, Albumin 2.5 L, Globulin 3.2, Albumin/Globulin Ratio 0.8 L I & O for Last 24 hours: Intake & Output 03/18/22 03/19/22 03/20/22 03/21/22 23:59 23:59 23:59 23:59 Intake Total 2671 / 2731 1140 / 1140 2658 / 2658 783 / 783 Output Total 1125 / 1125 900 / 900 725 / 725 750 / 750 Balance 1546 / 1606 240 / 240 1933 / 1933 33 / 33 Weight 106 lb 5.989 oz 119 lb 6 oz 125 lb 5 oz 125 lb 5.007 oz Microbiology Reports for the Last 24 Hours: Microbiology 03/15/22 13:14 Blood Blood Culture - Final NO GROWTH AFTER 5 DAYS 03/15/22 13:14 Blood Blood Culture - Final NO GROWTH AFTER 5 DAYS 03/15/22 20:00 Leg,Left - Left Gram Stain - Final 03/15/22 20:00 Leg,Left - Left Wound Culture - Preliminary Gram Negative Rods Staphylococcus epidermidis Constitutional Constitutional: no acute distress *Routine Respiratory Exam Respiratory: Present CTA bilaterally and symmetric chest movement *Routine Cardiovascular Exam Cardiovascular: Present RRR, Normal S1 and Normal S2 *Routine Abdominal Exam Abdominal: Present soft and normoactive bowel sounds; Absent tenderness *Routine Extremities Exam Extremities: Present full ROM and normal capillary refill; Absent edema Comments: BKA on left side *Routine Skin Exam Skin: Present intact, dry and warm Detailed Neck Exam: Thyroids Thyroid: Absent bruit Progress Note: A&P Assessment and plan (1) Status post below-knee amputation of left lower extremity: Status: Acute (2) Postoperative wound dehiscence: Status: Acute (3) Anemia: Status: Acute (4) Septic shock: Status: Acute (5) Acute hypokalemia: Status: Acute (6) PAD (peripheral artery disease): Status: Chronic (7) Ischemic cardiomyopathy: Status: Chronic (8) Chronic systolic heart failure: Status: Chronic (9) CAD (coronary artery disease): Status: Chronic (10) Finger erythema: Status: Acute (11) IDDM (insulin dependent diabetes mellitus): Status: Chronic Assessment and Plan Assessment and Plan for All Diagnoses:: CAD -Left heart cath April 2020 showed severe proximal left main disease. 1 drug-eluting stent was placed in the proximal left main artery. -Continue aspirin 81 mg p.o. daily. Shani acosta
--- NOTE | 2022-03-21 10:35 | EXP.ORTH.PN ---
Subjective *Date: 03/21/22 *Time: 10:00 Interval history: Patient is a 51 year old female status post left BKA, multiple irrigation and debridements, application of wound VAC. This morning the patient is lying comfortably in bed. She reports intermittent pain in her left residual limb but states that it is well controlled with as needed pain medication. She denies any other symptoms or concerns at this time. Ortho Exam (Inpt) Vital signs and Labs for Last 24 Hours: Temp Pulse Resp BP Pulse Ox 98.4 F 102 H 17 128/73 98 03/21/22 08:00 03/21/22 08:00 03/21/22 08:00 03/21/22 08:00 03/21/22 08:00 Laboratory Results - last 24 hr 03/20/22 12:13: POC Glucose 324 H* 03/20/22 16:44: POC Glucose 206 H 03/20/22 23:27: POC Glucose 81 03/21/22 06:19: POC Glucose 127 H 03/21/22 07:07: WBC 14.9 H, RBC 2.96 L, Hgb 8.3 L, Hct 24.7 L, MCV 83.3, MCH 27.8, MCHC 33.4, RDW 17.8 H, Plt Count 631 H, MPV 7.6, Neut % (Auto) 75.5, Lymph % (Auto) 15.9, [place] % (Auto) 4.3, Eos % (Auto) 3.8, Baso % (Auto) 0.5, Neut # (Auto) 11.2 H, Lymph # (Auto) 2.4, [place] # (Auto) 0.6, Eos # (Auto) 0.6 H, Baso # (Auto) 0.1 03/21/22 07:07: Sodium 134 L, Potassium 4.8, Chloride 109 H, Carbon Dioxide 21 L, Anion Gap 8.8, BUN 11, Creatinine 0.60, Estimated Creat Clear 102, Estimated GFR 106, Est GFR ( Amer) 129, Glucose 112 H, Calcium 7.8 L, Total Bilirubin 0.4, AST 62 H, ALT 33, Alkaline Phosphatase 133 H, Total Protein 5.7 L, Albumin 2.5 L, Globulin 3.2, Albumin/Globulin Ratio 0.8 L I & O for Labs for Last 24 Hours: Intake & Output 03/18/22 03/19/22 03/20/22 03/21/22 23:59 23:59 23:59 23:59 Intake Total 2671 / 2731 1140 / 1140 2658 / 2658 783 / 783 Output Total 1125 / 1125 900 / 900 725 / 725 750 / 750 Balance 1546 / 1606 240 / 240 1933 / 1933 33 / 33 Weight 106 lb 5.989 oz 119 lb 6 oz 125 lb 5 oz 125 lb 5.007 oz Microbiology Reports for the Last 24 Hours: Microbiology 03/15/22 13:14 Blood Blood Culture - Final NO GROWTH AFTER 5 DAYS 03/15/22 13:14 Blood Blood Culture - Final NO GROWTH AFTER 5 DAYS 03/15/22 20:00 Leg,Left - Left Gram Stain - Final 03/15/22 20:00 Leg,Left - Left Wound Culture - Preliminary Gram Negative Rods Staphylococcus epidermidis Head: Present normocephalic and atraumatic Eyes: Present as per HPI ENT: Present normal exam Neck: Present normal inspection, full ROM and trachea midline; Absent lymphadenopathy Respiratory: Present normal respiratory effort, able to speak in complete sentences and symmetric chest movement; Absent accessory muscle use Cardiac: Present Reg Rate and Rhythm GI: Present soft; Absent tenderness Comment:: Upon examination of the left residual limb: Wound VAC in place with good seal. Scant serosanguineous drainage present in the tubing and canister. No erythema or streaking present up the extremity. Leg compartments are soft and nontender. Skin: Present intact, warm and normal turgor; Absent cyanosis, erythema, lesions or jaundice Neuro: Present Cranial Nerve 2-12 Intact, Motor Function Intact, Sensory Function Intact, alert, awake, oriented x 3, tone normal and moves all extremities; Absent Numbness or Tingling Assessment and Plan *Assessment and plan (1) Postoperative wound dehiscence: Status: Acute Category: Medical Code(s): T81.31XA - Disruption of external operation (surgical) wound, not elsewhere classified, initial encounter (2) Status post below-knee amputation of left lower extremity: Status: Acute Category: Surgical Code(s): Z89.512 - Acquired absence of left leg below knee Plan I have discussed the clinical findings and progress with the patient. Wound VAC is in place with minimal serosanguineous output and good seal; plan to continue wound VAC, initiate changes every 48-72 hours beginning tomorrow. Final wound cultures are sti
[2022-03-21 11:42] LABS: POC Glucose,Bedside 223 (70-110)
[2022-03-21 13:22] LABS: Vancomycin,Trough 16.8 ug/mL (5.0-10.0)
--- NOTE | 2022-03-21 13:55 | EXP.PHA.CONS ---
Pharmacy Consult Date: 03/21/22 Time: 13:55 Referring provider: DR ARMENDARIZ Reason for Consult:: VANCOMYCIN TROUGH LEVEL OBTAINED Allergies Allergy/AdvReac Type Severity Reaction Status Date / Time No Known Allergies Allergy Verified 03/15/22 12:10 Home Medications Medication Instructions Recorded Confirmed Type amitriptyline 100 mg tablet 100 mg PO HS Depression/SLEEP 10/22/17 03/15/22 History aspirin 81 mg chewable tablet 81 mg PO DAILY Heart disease 10/02/18 03/15/22 History cyanocobalamin (vitamin B-12) 1,000 mcg PO DAILY Supplement 09/04/19 03/15/22 History 1,000 mcg tablet gabapentin 600 mg tablet 600 mg PO TID neuropathy 09/04/19 03/15/22 History insulin glargine 100 unit/mL 40 unit SQ HS Diabetes 09/16/20 03/16/22 History subcutaneous solution insulin lispro 100 unit/mL 10 unit SQ AC Diabetes 09/16/20 03/16/22 History subcutaneous cartridge atorvastatin 40 mg tablet 40 mg PO DAILY Cholesterol 11/15/21 03/15/22 History cholecalciferol (vitamin D3) 25 25 mcg PO DAILY Supplement 01/10/22 03/15/22 History mcg (1,000 unit) capsule sacubitril 24 mg-valsartan 26 mg 1 tab PO BID bp #180 tabs 01/24/22 03/15/22 Rx tablet carvedilol 12.5 mg tablet 12.5 mg PO BID htn #180 tabs 01/28/22 03/15/22 Rx ticagrelor 90 mg tablet 90 mg PO BID Heart disease/blood 01/28/22 03/16/22 Rx thinner #60 tabs furosemide 40 mg tablet 40 mg PO BID PRN Edema #60 tabs 02/15/22 03/15/22 Rx hydrocodone 5 mg-acetaminophen 325 1 tab PO Q4H PRN post op pain #30 03/03/22 03/16/22 Rx mg tablet tabs cephalexin 500 mg capsule 500 mg PO QID post op infection 03/15/22 03/15/22 History New Prescriptions to Start Prescriptions: Height: 1.35 m Weight: 56.841 kg Laboratory Results:: Laboratory Results - last 24 hr 03/20/22 16:44: POC Glucose 206 H 03/20/22 23:27: POC Glucose 81 03/21/22 06:19: POC Glucose 127 H 03/21/22 07:07: WBC 14.9 H, RBC 2.96 L, Hgb 8.3 L, Hct 24.7 L, MCV 83.3, MCH 27.8, MCHC 33.4, RDW 17.8 H, Plt Count 631 H, MPV 7.6, Neut % (Auto) 75.5, Lymph % (Auto) 15.9, [place] % (Auto) 4.3, Eos % (Auto) 3.8, Baso % (Auto) 0.5, Neut # (Auto) 11.2 H, Lymph # (Auto) 2.4, [place] # (Auto) 0.6, Eos # (Auto) 0.6 H, Baso # (Auto) 0.1 03/21/22 07:07: Sodium 134 L, Potassium 4.8, Chloride 109 H, Carbon Dioxide 21 L, Anion Gap 8.8, BUN 11, Creatinine 0.60, Estimated Creat Clear 102, Estimated GFR 106, Est GFR ( Amer) 129, Glucose 112 H, Calcium 7.8 L, Total Bilirubin 0.4, AST 62 H, ALT 33, Alkaline Phosphatase 133 H, Total Protein 5.7 L, Albumin 2.5 L, Globulin 3.2, Albumin/Globulin Ratio 0.8 L 03/21/22 11:31: POC Glucose 223 H 03/21/22 12:41: Vancomycin Trough 16.8 H Medical History: Medical History (Updated 03/21/22 @ 08:31 by Massiel Wang APRN) Abnormal ankle brachial index (ALAN) Abnormal EKG Acute urinary tract infection Anemia Arthralgia of ankle Bacteremia due to Escherichia coli CAD (coronary artery disease) Campylobacter diarrhea Cellulitis of left foot Chronic systolic heart failure Depression Dermatitis Diabetes mellitus, type 2 Diabetic infection of right foot Diabetic ulcer of right foot associated with diabetes mellitus due to underlying condition, with fat layer exposed Dizziness Dyspnea Elevated troponin Encounter for pre-operative cardiovascular clearance Encounter for wound care Fever Foot abscess, right Gangrene of right foot HHD (hypertensive heart disease) History of CVA (cerebrovascular accident) HLD (hyperlipidemia) Hypokalemia Hyponatremia Hypotension Ischemic cardiomyopathy Left foot infection Left shift MRSA (methicillin resistant staph aureus) culture positive Nail dystrophy Non-healing wound NYHA Class II cardiovascular function Osteomyelitis Postoperative dehiscence of skin wound Postoperative wound dehiscence Postoperative wound dehiscence Pulmonary hypertension, moderate to severe Right foot ulcer Sepsis Severe mitral valve regurgitation Severe tricuspid valve regurgitation Stro
--- NOTE | 2022-03-21 14:16 | CA_ITS ---
APPROVED REPORT EXAM: Comprehensive 2D, Doppler, and color-flow Echocardiogram [employer]: Ester Go CRT Ht: 4 ft 5 in Wt: 125lbs BSA: 1.40 BP: 103/55 mmHg Indications: Diabetes, Hyperlipidemia, Cardiomyopathy, Hypertension/HDD, CVA, MRSA, CM, PACER, STENTS, BILATERAL BKA, PHTN 2D Dimensions LVOT 1.95 cm (M/F) 1.5-2.5 M-Mode Dimensions RVDd 3.06 cm (0.9-2.6) LA Diam 3.84 cm (1.9-4.0) LVDd 5.25 cm (3.5-5.7) Ao Diam 3.49 cm (2.0-3.7) LVDs 4.38 cm (3.5-5.7) IVSd 1.19 cm (0.6-1.1) PWd 0.50 cm (0.6-1.1) EF (Teich) 34.40% FS 16.60% EDV (Teich) 132.40 mL TAPSE 1.70 (<1.7) ESV (Teich) 86.80 mL LV Diastology LAT E' 14.30 (<10 cm/sec) LAT A' 9.60 cm/s Aortic Valve AI PHT 381.00 ms AO Peak GR. 5.30 mmHg Pulmonary Valve PV Peak Velocity 116.00 (50-150 cm/s) Tricuspid Valve TR P. Velocity 279.00 cm/s RAP Estimate 10.00 mmHg RVSP 41.10 mmHg Left Ventricle Left atrium is mildly enlarged, left ventricle is mildly dilated, estimated ejection fraction approximately 25%, left ventricle is globally hypokinetic, diastolic parameters are inconclusive. Right Ventricle Right atrium and right ventricle are normal size and contractility, pacemaker leads in the right atrium and right ventricle. Aortic Valve Aortic valve is minimally thickened and fibrosed there is no aortic stenosis, there is trace aortic insufficiency. Mitral Valve Mitral valve is grossly normal, there is moderate mitral regurgitation. Tricuspid Valve Tricuspid valve grossly normal, there is moderate tricuspid regurgitation, calculated right ventricular systolic pressure is 40 mmHg. Pulmonic Valve Pulmonic valve is poorly visualized. Great Vessels Aortic root is normal size. Inferior vena cava is mildly dilated with less than 50% inspiratory collapse. Pericardium Trivial pericardial effusion noted. Conclusion 1. Mildly dilated left ventricle, severe reduced left ventricular systolic function, estimated ejection fraction 25% left ventricle is globally hypokinetic, diastolic parameters are inconclusive. 2. Moderate mitral and tricuspid regurgitation, calculated right ventricular systolic pressure is 40 mmHg. 3. Trace aortic insufficiency. 4. Inferior vena cava is mildly dilated with less than 50% inspiratory collapse. 5. Trivial pericardial effusion noted. Electronically signed by : Christopher Noyola MD 03/22/2022 06:06:08
--- NOTE | 2022-03-21 15:05 | EXP.ANES.II ---
[facility] Anesthesia Record Part II Anesthesia Record Part II Discharge Time: 14:50 (03/18/22) Destination: Intensive Care Unit PACU nurse assessment reviewed?: Yes Patient Condition:: Good Anesthesia Complications:: None Swallowing reflex intact?: Yes Cyanosis?: No Blood Pressure: 109/64 Pulse Rate: 101 Temperature: 97.3 F Mental Status: Alert & Oriented Pain level:: 0 Nausea and/or vomitting:: None Intake, IV Amount: 0
[2022-03-21 17:06] LABS: POC Glucose,Bedside 193 (70-110)
[2022-03-21 22:56] LABS: POC Glucose,Bedside 98 (70-110)
[2022-03-22] VITALS (8 sets, daily range): BP systolic 98–123; BP diastolic 55–71; PULSE 60–111; RESP 16–21; TEMP 36.4–37; O2SAT 94–100; BMI 32.7
[2022-03-22 06:52] LABS: POC Glucose,Bedside 89 (70-110)
[2022-03-22 07:23] LABS: Basophils # 0.1 K/mm3 (0-0.2); Basophils % 0.7 % (0.1-2.0); Eosinophils # 0.7 K/mm3 (0.0-0.4); Eosinophils % 5.4 % (0.1-12.0); Hematocrit 26.4 % (37.0-47.0); Hemoglobin 8.7 g/dL (12.2-16.2); Lymphocytes # 2.5 K/mm3 (0.7-4.5); Lymphocytes % 18.5 % (10-50); Mean Corpuscular HGB Conc 33.2 g/dL (31.8-35.4); Mean Corpuscular Hemoglobin 27.3 pg (27.0-31.2); Mean Corpuscular Volume 82.4 fl (81-99); Mean Platelet Volume 7.6 fl (7.4-10.4); Monocytes # 0.5 K/mm3 (0.1-1.0); Monocytes % 3.9 % (1.7-9.3); Neutrophils # 9.8 K/mm3 (1.8-7.8); Neutrophils % 71.6 % (37.0-80.0); Platelet Count 693 K/mm3 (142-424); Red Cell Distribution Width 18.1 % (11.5-17.5); White Blood Count 13.7 K/mm3 (4.8-10.8)
[2022-03-22 07:35] LABS: Alanine Aminotransferase 30 U/L (12-78); Albumin Level 2.4 g/dl (3.5-5.0); Albumin/Globulin Ratio 0.7 (1.1-1.8); Alkaline Phosphatase 134 U/L (38-126); Anion Gap 8.6 mEq/L (5-15); Aspartate Amino Transferase 44 U/L (14-36); Bilirubin,Total 0.5 mg/dl (0.2-1.3); Blood Urea Nitrogen 8 mg/dl (7-17); Calcium 7.8 mg/dl (8.4-10.2); Carbon Dioxide 23 mmol/L (22.0-30.0); Chloride 106 mmol/L (98-107); Creatinine Clearance Estimated 107 mL/min (50-200); Estimated Glomerular Filt Rate 106 ml/min (>60); GFR (African American) 129 ML/MIN (>60); Globulin 3.4 g/dL (1.3-3.2); Glucose 83 mg/dl (74-100); Potassium 4.6 mmoL/L (3.5-5.1); Sodium 133 mmol/L (136-145); Total Protein,Serum 5.8 g/dl (6.3-8.2)
--- NOTE | 2022-03-22 07:47 | XR_ITS ---
FINAL REPORT CLINICAL HISTORY: Confirm PICC line placement COMPARISON: 03/15/2022 FINDINGS: PORTABLE CHEST A right PICC line is present with the tip in the SVC. A left subclavian pacemaker is present. The heart is normal in size. The mediastinum is unremarkable. The lungs are clear. There is no pneumothorax. IMPRESSION: Right PICC line is present with it's tip in the SVC. No acute process. Reviewed, Interpreted and Dictated by Hugh Meza MD Transcribed by Olga Key Authenticated and [facility]
--- NOTE | 2022-03-22 08:15 | EXP.PN ---
Subjective *Date: 03/22/22 *Time: 08:15 Interval history: Patient feels she is doing better. She has ongoing pain in the left stop. She has phantom pains in the right stump. She is eating better. She has not been out of bed. Bowels have not moved. She continues with a Hernandez catheter to bedside drainage. She has a wound VAC to the left stump wound. CBC today with a white blood cell count of 13,700 and hemoglobin of 8.7 hematocrit 26.4. Chemistry profile with a low sodium and otherwise appears good. Exam Data for Last 24 hours Vital signs and Labs for Last 24 Hours: Temp Pulse Resp BP Pulse Ox 98 F 62 16 110/68 94 L 03/22/22 04:00 03/22/22 04:00 03/22/22 04:00 03/22/22 04:00 03/22/22 04:00 Laboratory Results - last 24 hr 03/21/22 11:31: POC Glucose 223 H 03/21/22 12:41: Vancomycin Trough 16.8 H 03/21/22 16:46: POC Glucose 193 H 03/21/22 22:38: POC Glucose 98 03/22/22 06:46: POC Glucose 89 03/22/22 07:03: WBC 13.7 H, RBC 3.20 L, Hgb 8.7 L, Hct 26.4 L, MCV 82.4, MCH 27.3, MCHC 33.2, RDW 18.1 H, Plt Count 693 H, MPV 7.6, Neut % (Auto) 71.6, Lymph % (Auto) 18.5, [place] % (Auto) 3.9, Eos % (Auto) 5.4, Baso % (Auto) 0.7, Neut # (Auto) 9.8 H, Lymph # (Auto) 2.5, [place] # (Auto) 0.5, Eos # (Auto) 0.7 H, Baso # (Auto) 0.1 03/22/22 07:03: Sodium 133 L, Potassium 4.6, Chloride 106, Carbon Dioxide 23, Anion Gap 8.6, BUN 8 D, Creatinine 0.60, Estimated Creat Clear 107, Estimated GFR 106, Est GFR ( Amer) 129, Glucose 83 D, Calcium 7.8 L, Total Bilirubin 0.5, AST 44 H D, ALT 30, Alkaline Phosphatase 134 H, Total Protein 5.8 L, Albumin 2.4 L, Globulin 3.4 H, Albumin/Globulin Ratio 0.7 L I & O for Last 24 hours: Intake & Output 03/19/22 03/20/22 03/21/22 03/22/22 11:59 11:59 11:59 11:59 Intake Total 1828 / 1828 2040 / 2040 2000 / 2128 Output Total 600 / 600 875 / 875 900 / 900 4500 / 4500 Balance 1228 / 1228 1165 / 1165 1101 / 1101 -2371 / -2371 Weight 119 lb 6 oz 125 lb 5 oz 125 lb 5.007 oz 131 lb 9.6 oz Constitutional Constitutional: no acute distress Comments: Sitting up in the bed and eating breakfast. She is quite alert this morning. *Routine Respiratory Exam Respiratory: Present CTA bilaterally (Anteriorly and posteriorly) *Routine Cardiovascular Exam Cardiovascular: Present RRR *Routine Abdominal Exam Abdominal: Present soft and normoactive bowel sounds; Absent tenderness or distended *Routine Extremities Exam Extremities: Present amputation (Right leg stump below the knee amputation with eschar. Left lower extremity wound with wound VAC and dressing is clean and dry.) *Routine Skin Exam Comments: Finger wounds on right hand with Band-Aids. *Routine Neurological Exam Neurological: Present alert and oriented X3 Assessment and Plan *Assessment and plan (1) Postoperative wound dehiscence: Status: Acute Category: Medical Code(s): T81.31XA - Disruption of external operation (surgical) wound, not elsewhere classified, initial encounter (2) Status post below-knee amputation of left lower extremity: Status: Acute Category: Surgical Code(s): Z89.512 - Acquired absence of left leg below knee (3) CAD (coronary artery disease): Status: Chronic Qualifiers: Coronary Disease-Associated Artery/Lesion type: [place] artery [place] vs. transplanted heart: [place] heart Associated angina: without angina Qualified Code(s): I25.10 - Atherosclerotic heart disease of [place] coronary artery without angina pectoris Category: Medical Code(s): I25.10 - Atherosclerotic heart disease of [place] coronary artery without angina pectoris (4) HHD (hypertensive heart disease): Status: Chronic Qualifiers: Heart failure presence: with heart failure Heart failure type: systolic Heart failure chronicity: chronic Qualified Code(s): I11.0 - Hypertensive heart disease with heart failure; I50.22 - Chronic systolic (congestive) heart failure
--- NOTE | 2022-03-22 10:27 | EXP.CARD.PN ---
Subjective Subjective Date: 03/22/22 Time: 08:00 Principal diagnosis: sepsis Interval history: Patient resting, complaining of pain to bilateral stumps. Denies chest pain or shortness of breath. Blood pressure has remained stable after restarting Entresto. Labs reviewed. Negative balance 7868 Exam Data for Last 24 hours Vital signs and Labs for Last 24 Hours: Temp Pulse Resp BP Pulse Ox 98.2 F 108 H 21 123/63 96 03/22/22 08:00 03/22/22 08:00 03/22/22 08:00 03/22/22 08:00 03/22/22 08:00 Laboratory Results - last 24 hr 03/21/22 11:31: POC Glucose 223 H 03/21/22 12:41: Vancomycin Trough 16.8 H 03/21/22 16:46: POC Glucose 193 H 03/21/22 22:38: POC Glucose 98 03/22/22 06:46: POC Glucose 89 03/22/22 07:03: WBC 13.7 H, RBC 3.20 L, Hgb 8.7 L, Hct 26.4 L, MCV 82.4, MCH 27.3, MCHC 33.2, RDW 18.1 H, Plt Count 693 H, MPV 7.6, Neut % (Auto) 71.6, Lymph % (Auto) 18.5, [place] % (Auto) 3.9, Eos % (Auto) 5.4, Baso % (Auto) 0.7, Neut # (Auto) 9.8 H, Lymph # (Auto) 2.5, [place] # (Auto) 0.5, Eos # (Auto) 0.7 H, Baso # (Auto) 0.1 03/22/22 07:03: Sodium 133 L, Potassium 4.6, Chloride 106, Carbon Dioxide 23, Anion Gap 8.6, BUN 8 D, Creatinine 0.60, Estimated Creat Clear 107, Estimated GFR 106, Est GFR ( Amer) 129, Glucose 83 D, Calcium 7.8 L, Total Bilirubin 0.5, AST 44 H D, ALT 30, Alkaline Phosphatase 134 H, Total Protein 5.8 L, Albumin 2.4 L, Globulin 3.4 H, Albumin/Globulin Ratio 0.7 L I & O for Last 24 hours: Intake & Output 03/19/22 03/20/22 03/21/22 01/03/23 23:59 23:59 23:59 23:59 Intake Total 1140 / 1140 2658 / 2658 1383 / 1383 1769 / 1769 Output Total 900 / 900 725 / 725 1950 / 4050 3300 / 3300 Balance 240 / 240 1933 / 193 -567 / -2667 -1531 / -1531 Weight 119 lb 6 oz 125 lb 5 oz 125 lb 5.007 oz 131 lb 9.6 oz Constitutional Constitutional: no acute distress Comments: Sitting up in the bed and eating breakfast. She is quite alert this morning. *Routine Respiratory Exam Respiratory: Present CTA bilaterally (Anteriorly and posteriorly) *Routine Cardiovascular Exam Cardiovascular: Present RRR *Routine Abdominal Exam Abdominal: Present soft and normoactive bowel sounds; Absent tenderness or distended *Routine Extremities Exam Extremities: Present amputation (Right leg stump below the knee amputation with eschar. Left lower extremity wound with wound VAC and dressing is clean and dry.) *Routine Skin Exam Comments: Finger wounds on right hand with Band-Aids. *Routine Neurological Exam Neurological: Present alert and oriented X3 Progress Note: A&P Assessment and plan (1) Postoperative wound dehiscence: Status: Acute (2) Status post below-knee amputation of left lower extremity: Status: Acute (3) CAD (coronary artery disease): Status: Chronic (4) HHD (hypertensive heart disease): Status: Chronic (5) Chronic systolic heart failure: Status: Chronic (6) Tobacco dependence syndrome: Status: Chronic (7) History of coronary artery stent placement: Status: Acute (8) Non-compliant patient: Status: Chronic (9) Type 1 diabetes mellitus with hyperglycemia: Status: Chronic (10) Finger erythema: Status: Acute Assessment and Plan Assessment and Plan for All Diagnoses:: CAD -Left heart cath April 2020 showed severe proximal left main disease.? 1 drug-eluting stent was placed in the proximal left main artery. -Continue aspirin 81 mg p.o. daily.? No Brilinta currently due anemia.? Continue atorvastatin 40 mg p.o. daily and carvedilol 6.25 mg p.o. twice daily 03/22/2022-no change History of ischemic cardiomyopathy status post AICD-NYHA II -Preliminary echo from 03/21/2022 shows an estimated EF of 30% with no significant change from prior echo.? Patient has an AICD in place -Continue carvedilol 6.25 mg p.o. twice daily and Entresto 24 to 26 mg p.o. twice daily.? Continue Lasix 40 mg p.o. twice daily as needed for volume overload. -Add Jardiance 10 mg p.o. da
--- NOTE | 2022-03-22 11:19 | EXP.ORTH.PN ---
Subjective *Date: 03/22/22 *Time: 08:45 Interval history: Patient is a 51 year old female status post left BKA, multiple irrigation and debridements, application of wound VAC. This morning the patient is lying comfortably in bed. She reports intermittent pain in her left residual limb but states that it is well controlled with as needed pain medication and rest. She reports that she has been eating and drinking well and denies any episodes of nausea or vomiting. She denies any other symptoms or concerns at this time. Ortho Exam (Inpt) Vital signs and Labs for Last 24 Hours: Temp Pulse Resp BP Pulse Ox 98.2 F 108 H 21 123/63 96 03/22/22 08:00 03/22/22 08:00 03/22/22 08:00 03/22/22 08:00 03/22/22 08:00 Laboratory Results - last 24 hr 03/21/22 11:31: POC Glucose 223 H 03/21/22 12:41: Vancomycin Trough 16.8 H 03/21/22 16:46: POC Glucose 193 H 03/21/22 22:38: POC Glucose 98 03/22/22 06:46: POC Glucose 89 03/22/22 07:03: WBC 13.7 H, RBC 3.20 L, Hgb 8.7 L, Hct 26.4 L, MCV 82.4, MCH 27.3, MCHC 33.2, RDW 18.1 H, Plt Count 693 H, MPV 7.6, Neut % (Auto) 71.6, Lymph % (Auto) 18.5, [place] % (Auto) 3.9, Eos % (Auto) 5.4, Baso % (Auto) 0.7, Neut # (Auto) 9.8 H, Lymph # (Auto) 2.5, [place] # (Auto) 0.5, Eos # (Auto) 0.7 H, Baso # (Auto) 0.1 03/22/22 07:03: Sodium 133 L, Potassium 4.6, Chloride 106, Carbon Dioxide 23, Anion Gap 8.6, BUN 8 D, Creatinine 0.60, Estimated Creat Clear 107, Estimated GFR 106, Est GFR ( Amer) 129, Glucose 83 D, Calcium 7.8 L, Total Bilirubin 0.5, AST 44 H D, ALT 30, Alkaline Phosphatase 134 H, Total Protein 5.8 L, Albumin 2.4 L, Globulin 3.4 H, Albumin/Globulin Ratio 0.7 L I & O for Labs for Last 24 Hours: Intake & Output 03/19/22 03/20/22 03/21/22 03/22/22 23:59 23:59 23:59 23:59 Intake Total 1140 / 1140 2658 / 2658 1383 / 1383 1769 / 1769 Output Total 900 / 900 725 / 725 1950 / 4050 3300 / 3300 Balance 240 / 240 1933 / 1933 -567 / -2667 -1531 / -1531 Weight 119 lb 6 oz 125 lb 5 oz 125 lb 5.007 oz 131 lb 9.6 oz Head: Present normocephalic and atraumatic Eyes: Present as per HPI ENT: Present normal exam Neck: Present normal inspection, full ROM and trachea midline; Absent lymphadenopathy Respiratory: Present normal respiratory effort, able to speak in complete sentences and symmetric chest movement; Absent accessory muscle use Cardiac: Present Reg Rate and Rhythm GI: Present soft; Absent tenderness Comment:: Upon examination of the left residual limb: Wound VAC in place with good seal noted. Approximately 3 cc serosanguineous drainage present in the tubing and canister. No erythema or streaking present up the extremity. Leg compartments are soft and nontender. Distal neurovascular status grossly intact. Skin: Present intact, warm and normal turgor; Absent cyanosis, erythema, lesions or jaundice Neuro: Present Cranial Nerve 2-12 Intact, Motor Function Intact, Sensory Function Intact, alert, awake, oriented x 3, tone normal and moves all extremities; Absent Numbness or Tingling Assessment and Plan *Assessment and plan (1) Postoperative wound dehiscence: Status: Acute Category: Medical Code(s): T81.31XA - Disruption of external operation (surgical) wound, not elsewhere classified, initial encounter (2) Status post below-knee amputation of left lower extremity: Status: Acute Category: Surgical Code(s): Z89.512 - Acquired absence of left leg below knee Plan I have discussed the clinical findings and progress with the patient. Wound VAC is in place with minimal serosanguineous output and noted to have good seal; plan to continue wound VAC, initiate changes every 48-72 hours beginning today. Final wound cultures are still pending for gram negative rods. Continue empiric IV antibiotics and adjust based on final culture results. Case management team coordinating discharge planning; patient likely to benefit from intermediate/rehabilitation placement secondary to need
[2022-03-22 17:12] LABS: POC Glucose,Bedside 269 (70-110)
[2022-03-22 17:12] LABS: POC Glucose,Bedside 195 (70-110)
[2022-03-22 22:51] LABS: POC Glucose,Bedside 100 (70-110)
[2022-03-23] VITALS: PULSE 90
[2022-03-23 04:00] VITALS: BP 116/61; PULSE 90; PULSE 91; RESP 18; TEMP 37; O2SAT 98; BMI 31.4
--- NOTE | 2022-03-23 06:23 | PC.NURSE ---
Pt c/o pain 1x t/o shift. PRN po pain medication administered. PT Q2 turned and full bed bath given. Pure wick in place. Call light within reach.
[2022-03-23 06:37] LABS: POC Glucose,Bedside 126 (70-110)
[2022-03-23 07:42] LABS: Basophils # 0.1 K/mm3 (0-0.2); Basophils % 0.8 % (0.1-2.0); Eosinophils # 0.6 K/mm3 (0.0-0.4); Eosinophils % 4.1 % (0.1-12.0); Hematocrit 26.5 % (37.0-47.0); Hemoglobin 8.8 g/dL (12.2-16.2); Lymphocytes # 2.3 K/mm3 (0.7-4.5); Lymphocytes % 17.3 % (10-50); Mean Corpuscular HGB Conc 33.1 g/dL (31.8-35.4); Mean Corpuscular Hemoglobin 27.6 pg (27.0-31.2); Mean Corpuscular Volume 83.3 fl (81-99); Mean Platelet Volume 7.3 fl (7.4-10.4); Monocytes # 0.6 K/mm3 (0.1-1.0); Monocytes % 4.8 % (1.7-9.3); Neutrophils # 9.9 K/mm3 (1.8-7.8); Platelet Count 688 K/mm3 (142-424); Red Blood Count 3.19 M/mm3 (4.20-5.40); Red Cell Distribution Width 18.2 % (11.5-17.5); White Blood Count 13.5 K/mm3 (4.8-10.8)
[2022-03-23 07:52] LABS: Chloride 103 mmol/L (98-107); Sodium 136 mmol/L (136-145)
[2022-03-23 07:53] LABS: Potassium 4.5 mmoL/L (3.5-5.1)
[2022-03-23 07:55] LABS: Alanine Aminotransferase 28 U/L (12-78); Alkaline Phosphatase 143 U/L (38-126); Aspartate Amino Transferase 38 U/L (14-36); Bilirubin,Total 0.4 mg/dl (0.2-1.3); Blood Urea Nitrogen 9 mg/dl (7-17); Creatinine Clearance Estimated 88 mL/min (50-200); Estimated Glomerular Filt Rate 89 ml/min (>60); GFR (African American) 108 ML/MIN (>60)
[2022-03-23 07:56] LABS: Albumin Level 2.3 g/dl (3.5-5.0); Albumin/Globulin Ratio 0.7 (1.1-1.8); Anion Gap 8.5 mEq/L (5-15); Calcium 8.1 mg/dl (8.4-10.2); Carbon Dioxide 29 mmol/L (22.0-30.0); Globulin 3.3 g/dL (1.3-3.2); Glucose 116 mg/dl (74-100); Total Protein,Serum 5.6 g/dl (6.3-8.2)
[2022-03-23 08:00] VITALS: BP 154/69; PULSE 102; PULSE 107; RESP 16; TEMP 36.4; O2SAT 97
--- NOTE | 2022-03-23 08:01 | EXP.ACUTE.PN ---
Subjective *Date: 03/23/22 *Time: 08:01 Interval history: Patient states she is feeling better this am. She slept well and ate all of her breakfast. Her only pain is in her left leg. Medical Exam Vital signs and Labs for Last 24 Hours: Vital Signs Temp Pulse Pulse Resp BP Pulse Ox 03/22/22 20:00 99 H 100 03/23/22 04:00 90 03/23/22 04:00 98.6 F 91 H 18 116/61 98 03/23/22 00:00 90 03/22/22 20:00 90 03/22/22 23:54 98.4 F 89 20 98/61 L 98 03/22/22 19:59 98.6 F 99 H 20 115/63 100 03/22/22 16:00 111 H 03/22/22 12:00 96 H 03/22/22 16:00 97.5 F L 89 18 104/55 L 98 03/22/22 12:00 98 F 93 H 18 123/71 99 Intake and Output 03/22/22 03/23/22 03/23/22 19:59 03:59 11:59 Intake Total 360 / 360 Output Total 0 / 1300 1300 / 1300 Balance 360 / -940 -1300 / -940 Intake: Intake, Oral Amount 360 / 360 Output: Output, Urine Amount 0 / 1300 1300 / 1300 Other: Number of Voids 2 Number of Unmeasured Voids 1 1 Weight 126 lb 4 oz Patient Weight 03/23/22 11:59 Weight 126 lb 4 oz Laboratory Results - last 24 hr 03/19/22 21:35: Crossmatch (AHG) See Detail 03/22/22 11:00: POC Glucose 195 H 03/22/22 17:04: POC Glucose 269 H 03/22/22 22:37: POC Glucose 100 03/23/22 06:28: POC Glucose 126 H 03/23/22 07:32: WBC 13.5 H, RBC 3.19 L, Hgb 8.8 L, Hct 26.5 L, MCV 83.3, MCH 27.6, MCHC 33.1, RDW 18.2 H, Plt Count 688 H, MPV 7.3 L, Neut % (Auto) 73.0, Lymph % (Auto) 17.3, [place] % (Auto) 4.8, Eos % (Auto) 4.1, Baso % (Auto) 0.8, Neut # (Auto) 9.9 H, Lymph # (Auto) 2.3, [place] # (Auto) 0.6, Eos # (Auto) 0.6 H, Baso # (Auto) 0.1 03/23/22 07:32: Sodium 136, Potassium 4.5, Chloride 103, Carbon Dioxide 29, Anion Gap 8.5, BUN 9, Creatinine 0.70, Estimated Creat Clear 88, Estimated GFR 89, Est GFR ( Amer) 108, Glucose 116 H, Calcium 8.1 L, Total Bilirubin 0.4, AST 38 H, ALT 28, Alkaline Phosphatase 143 H, Total Protein 5.6 L, Albumin 2.3 L, Globulin 3.3 H, Albumin/Globulin Ratio 0.7 L I & O for Labs for Last 24 Hours: Intake & Output 03/20/22 03/21/22 03/22/22 03/23/22 11:59 11:59 11:59 11:59 Intake Total 2039 / 2039 2000 / 2000 2369 / 2369 360 / 360 Output Total 875 / 875 900 / 900 4500 / 4500 1300 / 1300 Balance 1165 / 1165 1101 / 1101 -2131 / -2131 -940 / -940 Weight 125 lb 5 oz 125 lb 5.007 oz 131 lb 9.6 oz 126 lb 4 oz Microbiology Reports for the Last 24 Hours: Microbiology 03/15/22 20:00 Leg,Left - Left - Final 03/15/22 20:00 Leg,Left - Left - Final 03/15/22 20:00 Leg,Left - Left - Final 03/15/22 20:00 Leg,Left - Left - Final 03/15/22 20:00 Leg,Left - Left - Final 03/15/22 14:04 Leg,Left - Final Not Reportable 03/15/22 14:04 Leg,Left - Final Not Reportable 03/15/22 14:04 Leg,Left - Final Not Reportable 03/15/22 14:04 Leg,Left - Final Not Reportable 03/15/22 14:04 Leg,Left - Final Not Reportable 03/15/22 14:04 Leg,Left - Wound Gram Stain - Final 03/15/22 14:04 Leg,Left - Wound Wound Culture - Final Gram Negative Rods Staphylococcus epidermidis 03/15/22 20:00 Leg,Left - Left Gram Stain - Final 03/15/22 20:00 Leg,Left - Left Wound Culture - Final Gram Negative Rods Staphylococcus epidermidis Constitutional: Present no acute distress Head: Present normocephalic Neck: Present normal inspection Respiratory: Present CTA bilaterally; Absent respiratory distress Cardiac: Present Reg Rate and Rhythm GI: Present soft; Absent tenderness Rectal (female): Present deferred (female): Present deferred Extremities: Absent edema Comment:: Wound VAC in place with very little drainage. There is not significant erythema of the w
--- NOTE | 2022-03-23 09:57 | EXP.ORTH.PN ---
Subjective *Date: 03/23/22 *Time: 10:13 Interval history: Patient is a 51 year old female status post left BKA, multiple irrigation and debridements, application of wound VAC performed by Dr. Diop. This morning the patient is lying comfortably in bed. She reports intermittent pain in her left residual limb but states that it is well controlled with as needed pain medication and rest. She reports that she has been eating and drinking well and denies any episodes of nausea or vomiting. She is eager to return home. She denies any other symptoms or concerns at this time. Ortho Exam (Inpt) Vital signs and Labs for Last 24 Hours: Temp Pulse Resp BP Pulse Ox 97.6 F 102 H 16 154/69 H 97 03/23/22 08:00 03/23/22 08:00 03/23/22 08:00 03/23/22 08:00 03/23/22 08:00 Laboratory Results - last 24 hr 03/19/22 21:35: Crossmatch (AHG) See Detail 03/22/22 11:00: POC Glucose 195 H 03/22/22 17:04: POC Glucose 269 H 03/22/22 22:37: POC Glucose 100 03/23/22 06:28: POC Glucose 126 H 03/23/22 07:32: WBC 13.5 H, RBC 3.19 L, Hgb 8.8 L, Hct 26.5 L, MCV 83.3, MCH 27.6, MCHC 33.1, RDW 18.2 H, Plt Count 688 H, MPV 7.3 L, Neut % (Auto) 73.0, Lymph % (Auto) 17.3, [place] % (Auto) 4.8, Eos % (Auto) 4.1, Baso % (Auto) 0.8, Neut # (Auto) 9.9 H, Lymph # (Auto) 2.3, [place] # (Auto) 0.6, Eos # (Auto) 0.6 H, Baso # (Auto) 0.1 03/23/22 07:32: Sodium 136, Potassium 4.5, Chloride 103, Carbon Dioxide 29, Anion Gap 8.5, BUN 9, Creatinine 0.70, Estimated Creat Clear 88, Estimated GFR 89, Est GFR ( Amer) 108, Glucose 116 H, Calcium 8.1 L, Total Bilirubin 0.4, AST 38 H, ALT 28, Alkaline Phosphatase 143 H, Total Protein 5.6 L, Albumin 2.3 L, Globulin 3.3 H, Albumin/Globulin Ratio 0.7 L I & O for Labs for Last 24 Hours: Intake & Output 03/20/22 03/21/22 03/22/22 03/23/22 23:59 23:59 23:59 23:59 Intake Total 2658 / 2658 1383 / 1383 2129 / 2129 240 / 240 Output Total 725 / 725 1950 / 4050 3300 / 3300 1300 / 1300 Balance 1933 / 1933 -567 / -2667 -1171 / -1171 -1060 / -1060 Weight 125 lb 5 oz 125 lb 5.007 oz 131 lb 9.6 oz 126 lb 4 oz Microbiology Reports for the Last 24 Hours: Microbiology 03/15/22 14:04 Leg,Left - Final Not Reportable 03/15/22 14:04 Leg,Left - Final Not Reportable 03/15/22 14:04 Leg,Left - Final Not Reportable 03/15/22 14:04 Leg,Left - Final Not Reportable 03/15/22 14:04 Leg,Left - Final Not Reportable 03/15/22 14:04 Leg,Left - Final Not Reportable 03/15/22 14:04 Leg,Left - Final Not Reportable 03/15/22 14:04 Leg,Left - Final Not Reportable 03/15/22 14:04 Leg,Left - Final Not Reportable 03/15/22 14:04 Leg,Left - Final Not Reportable 03/15/22 20:00 Leg,Left - Left - Final 03/15/22 20:00 Leg,Left - Left - Final 03/15/22 20:00 Leg,Left - Left - Final 03/15/22 20:00 Leg,Left - Left - Final 03/15/22 20:00 Leg,Left - Left - Final 03/15/22 14:04 Leg,Left - Final Not Reportable 03/15/22 14:04 Leg,Left - Final Not Reportable 03/15/22 14:04 Leg,Left - Final Not Reportable 03/15/22 14:04 Leg,Left - Final Not Reportable 03/15/22 14:04 Leg,Left - Final Not Reportable 03/15/22 14:04 Leg,Left - Wound Gram Stain - Final 03/15/22 14:04 Leg,Left - Wound Wound Culture - Final Gram Negative Rods Staphylococcus epidermidis 03/15/22 20:00 Leg,Left - Left Gram Stain - Final 03/15/22 20:00 Leg,Left - Left Wound Culture - Final Gram Negative Rods
[2022-03-23 12:00] VITALS: BP 126/75; PULSE 108; PULSE 97; RESP 16; TEMP 36.7; O2SAT 99
[2022-03-23 12:35] LABS: POC Glucose,Bedside 271 (70-110)
--- NOTE | 2022-03-23 13:29 | HMH.PHAINT1 ---
Pharmacy Intervention Comments: Met with patient at bedside to discuss discharge medications prior to discharge. Counseled on NEW and continued medications. Overviewed indications, possible adverse effects, and mitigation strategies. Instructed patient to STOP discontinued medications. Patient verbalized understanding of the information provided and had no questions or concerns at this time. -Jessica Bell, PharmD Candidate 2022
--- NOTE | 2022-03-24 14:55 | CARE MANAGER ---
Attempted post-discharge phone interview, no answer.
--- NOTE | 2022-03-30 23:34 | EXP.DC.SUM ---
General Admission date:: 03/15/22 Discharge date: 03/23/22 HPI HPI HPI: Ms. Marinelli is a 51-year-old female with multiple medical complications.? She was seen in Dr. Diop's office yesterday and was not feeling well.? The following is the ER narrative: The patient is sent from Dr. Diop's office.? She was there for follow-up of a recent left BKA surgery on 02/14/2022 complicated by wound dehiscence requiring operative debridement, irrigation, wound closure on 03/03/2022.? Noted to have low blood pressure and felt to have possible sepsis, therefore sent to the emergency department.? Patient complains of pain in her left lower extremity stump, denies any other complaints.? Family reports lethargy.? No fever at home.? She is currently on antibiotics, cephalexin. Denies URI symptoms.? Denies vomiting or diarrhea.? States she has been eating and drinking. Her white blood cell count was found to be elevated and she was found to have a UTI.? She had a CT angiogram and the CT of the lower extremity revealed soft tissue gas around the below the knee amputation stump.? She was taken to the OR for revision of the infected stump.? Dr. Maldonado saw her when she returned from the PACU.? She had to be placed on Levophed.? This am she is very lethargic and does open her eyes to questions but cannot answer many of them. Hospital Course Hospital Course Hospital Course: The patient was followed by orthopedics as well as cardiology. She remained on antibiotics for her wound infection, UTI, and sepsis. Her H&H was low and she was transfused with 3 units of packed red blood cells. Her potassium was low and was supplemented. Her hemoglobin improved with transfusion and her potassium improved as well. She was able to maintain blood pressure off of Levophed. Cardiology stopped her Brilinta due to her anemia. They also held her Entresto and carvedilol due to her hypotension. They felt this should be restarted once her blood pressure was stable. Orthopedics followed the patient and checked her wound and wound VAC. He felt her wound VAC should be changed every 48 hours and she should be continued on empiric IV antibiotics and pain medication. By 03/18/2022, the patient developed acute bleeding following wound VAC change and had to be taken back to the OR for irrigation and debridement of the left lower extremity with cauterization of a small arterial bleeder in the posterior compartment and placement of wound VAC. Orthopedics felt the tissues did look better and some devitalized tissue was removed. He felt she would need extended wound VAC care. Her H&H decreased and she was typed and crossed for 2 units of packed red blood cells to be held in case she needed additional transfusion. Dr. Maldonado initiated her on ferrous sulfate 325 mg twice daily. By 03/20/2022, she was showing some sinus tachycardia. Her carvedilol and Entresto had not yet been restarted, therefore her carvedilol was restarted at 6.25 mg twice daily she was also restarted on her glargine insulin at half dose of 20 units at bedtime. Her hemoglobin remained stable. Her white blood cell count began improving. It was felt she would need mcc/rehab for discharge planning. Her left leg culture came back positive for staph epidermidis. Orthopedics continued to follow and wanted her wound VAC changed every 48-72 hours. The patient had an echo that showed a preliminary EF of 30% with no change from previous. Cardiology wanted to continue carvedilol 6.25 mg twice daily and Entresto as well. They also wanted to continue the patient on Lasix 40 mg twice daily as needed for volume overload. They added Jardiance 10 mg daily and Aldactone 25 mg daily. She was started on some MiraLAX for constipation and a PICC line was placed for continued IV antibiotics. Her Hernandez was removed. Her final EF returned at 25%. By 03/23/2022, she was feeling better and wanted to go home. She had refused any mcc
== END 2022-03-23 13:05 | disposition home health service (06) | DRG 500 ==
LOC: ER 16:15 → 2ND 17:52 → ICU 03-17 15:07 → 2ND 03-20 19:36
PROVIDERS: Internal Medicine Adolescent Medicine; Nurse Practitioner Family; Orthopaedic Surgery; Physician Assistant; Admitting Provider Family Medicine; Emergency Provider Emergency Medicine; PCP Family Medicine; Visit Provider Family Medicine
PROC: 04LY0CZ Occlusion of Lower Artery with Extraluminal Device, Open Approach (ICD-10-PCS; principal; 2022-03-18 12:30)
DX: T87.44 Infection of amputation stump, left lower extremity; R65.21 Severe sepsis with septic shock; E11.52 Type 2 diabetes mellitus with diabetic peripheral angiopathy with gangrene; I50.22 Chronic systolic (congestive) heart failure; L02.416 Cutaneous abscess of left lower limb; N17.9 Acute kidney failure, unspecified; N39.0 Urinary tract infection, site not specified; E87.1 Hypo-osmolality and hyponatremia; L02.91 Cutaneous abscess, unspecified; I96 Gangrene, not elsewhere classified; F17.220 Nicotine dependence, chewing tobacco, uncomplicated; T87.81 Dehiscence of amputation stump; E11.9 Type 2 diabetes mellitus without complications; Z79.4 Long term (current) use of insulin; E87.6 Hypokalemia; I27.20 Pulmonary hypertension, unspecified; I25.10 Atherosclerotic heart disease of native coronary artery without angina pectoris; I11.0 Hypertensive heart disease with heart failure; I25.5 Ischemic cardiomyopathy; E11.40 Type 2 diabetes mellitus with diabetic neuropathy, unspecified; Z79.899 Other long term (current) drug therapy; Z91.198 Patient's noncompliance with other medical treatment and regimen for other reason; F32.A Depression, unspecified; E78.5 Hyperlipidemia, unspecified; I08.1 Rheumatic disorders of both mitral and tricuspid valves; Z86.73 Personal history of transient ischemic attack (TIA), and cerebral infarction without residual deficits; E11.65 Type 2 diabetes mellitus with hyperglycemia; Z95.810 Presence of automatic (implantable) cardiac defibrillator
CPT/HCPCS: 11043; 11046 ×3; 35860; 36410; 36415; 36569; 51702; 71045; 73590; 73706; 80048; 80053; 80061; 80202; 81001; 81025; 82009; 82550; 82553; 82803; 82962; 83605; 84484; 85007; 85014; 85018; 85025; 85651; 86140; 86850; 87040; 87070; 87075; 87077; 87086; 87186; 87205; 93005; 93306; 99291; C1751; C9803; J2405; J3370; P9016; Q9967; U0003; U0005

== ENCOUNTER 2022-04-06 13:53 | Inpatient (IN) | payer MEDICARE, MEDICAID, SELFPAY ==
[2022-04-06] VITALS (26 sets, daily range): BP systolic 72–118; BP diastolic 36–66; PULSE 67–121; RESP 16–20; TEMP 36.4–37.1; O2SAT 91–100; BMI 17.6; BMI 18.8
--- NOTE | 2022-04-06 13:53 | XR_ITS ---
FINAL REPORT CLINICAL HISTORY: ams COMPARISON: 03/22/2022 FINDINGS: SINGLE-VIEW CHEST The heart size is normal. The mediastinum is normal. Right ICD is unchanged. Right PICC line tip is no longer present. There are low lung volumes. The lungs are otherwise clear. There is no pneumothorax. IMPRESSION: No acute cardiopulmonary process. Reviewed, Interpreted and Dictated by Corrina Gayle MD Transcribed by Massiel Roberts Authenticated and [facility]
[2022-04-06 13:58] LABS: POC Glucose,Bedside 277 (70-110)
[2022-04-06 14:10] LABS: Basophils # 0.1 K/mm3 (0-0.2); Basophils % 0.6 % (0.1-2.0); Eosinophils # 0.3 K/mm3 (0.0-0.4); Eosinophils % 1.5 % (0.1-12.0); Hematocrit 31.9 % (37.0-47.0); Hemoglobin 10.4 g/dL (12.2-16.2); Lymphocytes # 1.3 K/mm3 (0.7-4.5); Lymphocytes % 5.9 % (10-50); Mean Corpuscular HGB Conc 32.5 g/dL (31.8-35.4); Mean Corpuscular Hemoglobin 27.5 pg (27.0-31.2); Mean Corpuscular Volume 84.7 fl (81-99); Monocytes # 0.4 K/mm3 (0.1-1.0); Monocytes % 1.8 % (1.7-9.3); Neutrophils # 20.5 K/mm3 (1.8-7.8); Neutrophils % 90.3 % (37.0-80.0); Platelet Count 377 K/mm3 (142-424); Red Blood Count 3.76 M/mm3 (4.20-5.40); Red Cell Distribution Width 18.6 % (11.5-17.5); White Blood Count 22.7 K/mm3 (4.8-10.8)
[2022-04-06 14:15] LABS: MANUAL DIFFERENTIAL MANUAL DIFFERENTIAL (MANUAL DIFF)
[2022-04-06 14:23] LABS: Alanine Aminotransferase 19 U/L (12-78); Albumin Level 3.2 g/dl (3.5-5.0); Albumin/Globulin Ratio 0.9 (1.1-1.8); Alkaline Phosphatase 187 U/L (38-126); Anion Gap 27.2 mEq/L (5-15); Aspartate Amino Transferase 35 U/L (14-36); Bilirubin,Total 0.5 mg/dl (0.2-1.3); Blood Urea Nitrogen 70 mg/dl (7-17); Carbon Dioxide 13 mmol/L (22.0-30.0); Chloride 98 mmol/L (98-107); Creatinine Clearance Estimated 18 mL/min (50-200); Estimated Glomerular Filt Rate 21 ml/min (>60); GFR (African American) 26 ML/MIN (>60); Globulin 3.4 g/dL (1.3-3.2); Glucose 243 mg/dl (74-100); Lipase 23 U/L (23-300); Magnesium 2.5 mg/dl (1.6-2.3); Potassium 4.2 mmoL/L (3.5-5.1); Sodium 134 mmol/L (136-145); Total Protein,Serum 6.6 g/dl (6.3-8.2)
[2022-04-06 14:29] LABS: C-Reactive Protein 145.2 mg/L (0-4)
--- NOTE | 2022-04-06 14:33 | EXP.PHA.CONS ---
Pharmacy Consult Date: 04/06/22 Time: 14:38 Referring provider: DR ALMARAZ Reason for Consult:: VANCOMYCIN DOSING CONSULT Allergies Allergy/AdvReac Type Severity Reaction Status Date / Time No Known Allergies Allergy Verified 03/31/22 15:19 Home Medications Medication Instructions Recorded Confirmed Type amitriptyline 100 mg tablet 100 mg PO HS Depression/SLEEP 10/22/17 03/31/22 History aspirin 81 mg chewable tablet 81 mg PO DAILY Heart disease 10/02/18 03/31/22 History cyanocobalamin (vitamin B-12) 1,000 mcg PO DAILY Supplement 09/04/19 03/31/22 History 1,000 mcg tablet gabapentin 600 mg tablet 600 mg PO TID neuropathy 09/04/19 03/31/22 History insulin glargine 100 unit/mL 40 unit SQ HS Diabetes 09/16/20 03/31/22 History subcutaneous solution insulin lispro 100 unit/mL 10 unit SQ AC Diabetes 09/16/20 03/31/22 History subcutaneous cartridge atorvastatin 40 mg tablet 40 mg PO DAILY Cholesterol 11/15/21 03/31/22 History cholecalciferol (vitamin D3) 25 25 mcg PO DAILY Supplement 01/10/22 03/31/22 History mcg (1,000 unit) capsule sacubitril 24 mg-valsartan 26 mg 1 tab PO BID bp #180 tabs 01/24/22 03/31/22 Rx tablet ticagrelor 90 mg tablet 90 mg PO BID Heart disease/blood 01/28/22 03/31/22 Rx thinner #60 tabs furosemide 40 mg tablet 40 mg PO BID PRN Edema #60 tabs 02/15/22 03/31/22 Rx hydrocodone 5 mg-acetaminophen 325 1 tab PO Q4H PRN post op pain #30 03/03/22 03/31/22 Rx mg tablet tabs carvedilol 6.25 mg tablet 6.25 mg PO BID #60 tabs 03/23/22 03/31/22 Rx empagliflozin 10 mg tablet 10 mg PO DAILY #30 tabs 03/23/22 03/31/22 Rx (Jardiance) ferrous sulfate 325 mg (65 mg 325 mg PO BID anemia #60 tabs 03/23/22 03/31/22 Rx iron) tablet linezolid 600 mg tablet (Zyvox) 600 mg PO BID staph cellulitis #60 03/23/22 03/31/22 Rx tabs spironolactone 25 mg tablet 25 mg PO DAILY #30 tabs 03/23/22 03/31/22 Rx hydrocodone 5 mg-acetaminophen 325 1 tab PO Q8H PRN pain from wound 03/25/22 03/31/22 Rx mg tablet vac changes #20 tabs New Prescriptions to Start Prescriptions: Height: 1.52 m Weight: 40.823 kg Laboratory Results:: Laboratory Results - last 24 hr 04/06/22 13:49: POC Glucose 277 H 04/06/22 13:50: WBC 22.7 H*, RBC 3.76 L, Hgb 10.4 L, Hct 31.9 L, MCV 84.7, MCH 27.5, MCHC 32.5, RDW 18.6 H, Plt Count 377, MPV 7.0 L, Neut % (Auto) 90.3 H, Lymph % (Auto) 5.9 L, [place] % (Auto) 1.8, Eos % (Auto) 1.5, Baso % (Auto) 0.6, Neut # (Auto) 20.5 H, Lymph # (Auto) 1.3, [place] # (Auto) 0.4, Eos # (Auto) 0.3, Baso # (Auto) 0.1 04/06/22 13:50: Sodium 134 L, Potassium 4.2, Chloride 98, Carbon Dioxide 13 L, Anion Gap 27.2 H, BUN 70 H, Creatinine 2.40 H, Estimated Creat Clear 18, Estimated GFR 21 L, Est GFR ( Amer) 26 L, Glucose 243 H, Calcium 9.0, Magnesium 2.5 H, Total Bilirubin 0.5, AST 35, ALT 19, Alkaline Phosphatase 187 H, Total Protein 6.6, Albumin 3.2 L, Globulin 3.4 H, Albumin/Globulin Ratio 0.9 L, Lipase 23 Medical History: Medical History (Updated 04/04/22 @ 00:00 by Background Daemon) Abnormal ankle brachial index (ALAN) Abnormal EKG Acute urinary tract infection Anemia Arthralgia of ankle Bacteremia due to Escherichia coli CAD (coronary artery disease) Campylobacter diarrhea Cellulitis of left foot Chronic systolic heart failure Depression Dermatitis Diabetes mellitus, type 2 Diabetic foot infection Diabetic infection of right foot Diabetic ulcer of right foot associated with diabetes mellitus due to underlying condition, with fat layer exposed Dizziness Dyspnea Elevated troponin Encounter for pre-operative cardiovascular clearance Encounter for wound care Fever Foot abscess, right Gangrene of right foot HHD (hypertensive heart disease) History of CVA (cerebrovascular accident) HLD (hyperlipidemia) Hypokalemia Hyponatremia Hypotension Ischemic cardiomyopathy Left foot infection Left shift MRSA (methicillin resistant staph aureus) culture positive Nail dystrophy Non-healing wound N
[2022-04-06 14:42] LABS: Procalcitonin 86.6 ng/mL (0.0-2.0)
[2022-04-06 14:53] LABS: Lymphocytes % 12 % (10-50); Monocytes % 2 % (2-9); Neutrophils % 86 % (42-76); Platelet Estimate Normal; RBC Morphology Normal; Total Cells Counted 100
[2022-04-06 14:54] LABS: ABG Base Excess -9.8 mmol/L (-2.4-2.3); ABG HCO3 14.6 mmhg (22.0-26.0); ABG Oxygen Saturation 98 % (90-100); ABG PCO2 22.7 mmhg (35.0-45.0); ABG PH 7.43 mmol/L (7.35-7.45); ABG PO2 101.3 mmhg (80-100); ABG TCO2 15.3 mmhg (23-27)
[2022-04-06 14:55] LABS: Oxygen 2 lpm %; Source Left Brachial
[2022-04-06 15:08] LABS: Coronavirus 19, PCR Not Detected (NotDetected); Influenza A, PCR Not Detected (NotDetected); Influenza B, PCR Not Detected (NotDetected)
[2022-04-06 15:21] LABS: INR 1.16 (0.9-1.1); Prothrombin Time 12.4 seconds (10.1-12.5)
[2022-04-06 15:25] LABS: Lactic Acid 2.5 mmol/L (0.7-2.1)
[2022-04-06 15:26] LABS: Microscopic, Urine URINE MICROSCOPIC (MICROSCOPIC)
[2022-04-06 15:31] LABS: Appearance,Urine TURBID (Clear); Bilirubin,Urine Negative (Negative); Blood, Urine 3+ (Negative); Color,Urine YELLOW (Yellow); Glucose,Urine (UA) 1+ (Negative); Ketones,Urine TRACE (Negative); Leukocyte Esterase,Urine 2+ (Negative); Nitrate,Urine Negative (Negative); PH,Urine 5.5 (5.0-8.5); Protein,Urine 2+ (Negative); Specific Gravity, Urine 1.025 (1.005-1.030); Urobilinogen,Urine 0.2 EU/dl (0.2)
--- NOTE | 2022-04-06 16:07 | PC.NURSE ---
called CM for admission
--- NOTE | 2022-04-06 16:20 | PC.NURSE ---
Spoke with Gustavo Khan RN and informed her to notify MD that a Tissue Perfusion Reassessment needs to be performed. Also inquired if MD was going to order a Vasopressor for patient's persistent hypotension. Gustavo Khan RN stated she would notify Dr. Rich.
--- NOTE | 2022-04-06 16:30 | PC.NURSE ---
Notified about pt persistent hypotension. MD states at this time he wants to try another liter bolus before starting any medicine to improve bp. notified of tissue perfusion.
[2022-04-06 16:42] LABS: Bacteria,Urine 1+ /lpf; RBC,Urine TNTC #/hpf (0-3); WBC,Urine TNTC #/hpf (0-3); Yeast,Urine 4+ /lpf
--- NOTE | 2022-04-06 16:46 | EXP.HP ---
History of Present Illness *Admission Date: 04/06/22 *Reason for visit:: sepsis *History of present illness: Patient is a 51-year-old female who was recently discharged from [facility] on 03/23/2022 after an admission for sepsis following a postop infection of the left BKA. She had a wound VAC placed during that admission and went home with home health services. She was in the office to see Dr. Maldonado last week and was feeling better. She had been staying at a friend's house and according to her friend, this morning she had altered mental status and they were unable to wake her up. EMS was called and transported her to the emergency room where she was found to have an elevated white blood cell count as well as an elevated lactic acid level and a UTI. She was started on IV abx and IVF's and will be admitted. [facility] Disclaimer: The information contained in this section may have been updated after the patient was seen, as this information can be updated by other users. Medical History Abnormal ankle brachial index (ALAN) Abnormal EKG Acute urinary tract infection Anemia Arthralgia of ankle Bacteremia due to Escherichia coli CAD (coronary artery disease) Campylobacter diarrhea Cellulitis of left foot Chronic systolic heart failure Depression Dermatitis Diabetes mellitus, type 2 Diabetic foot infection Diabetic infection of right foot Diabetic ulcer of right foot associated with diabetes mellitus due to underlying condition, with fat layer exposed Dizziness Dyspnea Elevated troponin Encounter for pre-operative cardiovascular clearance Encounter for wound care Fever Foot abscess, right Gangrene of right foot HHD (hypertensive heart disease) History of CVA (cerebrovascular accident) HLD (hyperlipidemia) Hypokalemia Hyponatremia Hypotension Ischemic cardiomyopathy Left foot infection Left shift MRSA (methicillin resistant staph aureus) culture positive Nail dystrophy Non-healing wound NYHA Class II cardiovascular function Osteomyelitis Postoperative dehiscence of skin wound Postoperative wound dehiscence Postoperative wound dehiscence Pulmonary hypertension, moderate to severe Right foot ulcer Sepsis Severe mitral valve regurgitation Severe tricuspid valve regurgitation Stroke Tachycardia Tobacco dependence syndrome Type 2 diabetes mellitus Unstable angina pectoris Urinary tract infection Surgical History History of cardiac defibrillator placement History of laparoscopic cholecystectomy History of right below knee amputation History of tubal ligation Status post below-knee amputation of left lower extremity Family History Diabetes Heart attack Hypertension Social History (Updated 04/06/22 @ 17:52 by Nancy Shay RN) Smoking Status: Current every day smoker tobacco type: cigarettes packs per day: 1 years smoked: 20 second hand exposure: No alcohol intake: never substance use type: denies use current occupational status: unemployed and disabled Travel in the last 8 weeks: None housing: house current occupational exposures/hazards: No caffeine: Yes Review of Systems Constitutional Constitutional: Denies body ache(s), Denies chills, Reports fatigue, Denies fever(s), Denies headache(s) and Reports weakness Eyes Eyes: Denies blurry vision and Denies diplopia ENT Ears, Nose, Mouth, and Throat: Denies headache(s), Denies nasal congestion and Denies sore throat *Cardiovascular Cardiovascular: Denies chest pain and Reports dyspnea *Respiratory Respiratory: Reports cough and Reports dyspnea *Gastrointestinal Gastrointestinal: Denies abdominal pain, Denies loose stools, Denies nausea and Denies vomiting *Genitourinary Genitourinary: Denies difficulty voiding and Denies dysuria *Musculoskeletal Musculoskeletal: Denies arthralg
--- NOTE | 2022-04-06 16:54 | HMH.EDGENADL ---
Discharge Plan Disposition Patient Disposition: Admitted As Inpatient Clinical Impressions Clinical Impression: Sepsis, Acute renal failure Discharge ED Provider: Markus Rich General Adult HPI General Chief complaint: Hyper/Hypoglycemia Stated complaint: Weakness Time Seen by Provider: 04/06/22 14:00 Mode of Arrival: EMS Limitations: Altered Mental Status Description of Symptoms (Recalled from ER Triage Doc. by RN): EMS reports family called d/t pt too weak to go PCP appt today, reports AMS, hyperglycemia, hypoglycemia, wound vac left BKA, History of Present Illness HPI narrative: Patient is a 51-year-old female with past medical history of diabetes, hypertension, pulmonary hypertension, systolic heart failure, CAD, recent admission for lower extremity infection status post left BKA and wound VAC who presents with concern for altered mental status. Patient states that family called EMS earlier today because she was too weak to go to her PCP appointment today. They said that she has been more lethargic than normal. They also note that her blood sugar has been elevated. She does endorse some chills. Denies any fever. Denies any chest pain or shortness of breath. Denies any abdominal pain. Denies any dysuria. EMS reports that she did have a low blood pressure in route. Related Data Home Medications Medication Instructions Recorded Confirmed amitriptyline 100 mg tablet 100 mg PO HS Depression/SLEEP 10/22/17 04/06/22 cyanocobalamin (vitamin B-12) 1,000 mcg PO DAILY Supplement 09/04/19 04/06/22 1,000 mcg tablet gabapentin 600 mg tablet 600 mg PO TID neuropathy 09/04/19 04/06/22 insulin glargine 100 unit/mL 40 unit SQ HS Diabetes 09/16/20 04/06/22 subcutaneous solution insulin lispro 100 unit/mL 10 unit SQ AC Diabetes 09/16/20 04/06/22 subcutaneous cartridge atorvastatin 40 mg tablet 40 mg PO DAILY Cholesterol 11/15/21 04/06/22 cholecalciferol (vitamin D3) 25 25 mcg PO DAILY Supplement 01/10/22 04/06/22 mcg (1,000 unit) capsule carvedilol 6.25 mg tablet 6.25 mg PO BID blood pressure 04/06/22 04/06/22 empagliflozin 10 mg tablet 10 mg PO DAILY Diabetes 04/06/22 04/06/22 (Jardiance) spironolactone 25 mg tablet 25 mg PO DAILY Supplement 04/06/22 04/06/22 Previous Rx's Medication Instructions Recorded sacubitril 24 mg-valsartan 26 mg 1 tab PO BID bp #180 tabs 01/24/22 tablet ticagrelor 90 mg tablet 90 mg PO BID Heart disease/blood 01/28/22 thinner #60 tabs hydrocodone 5 mg-acetaminophen 325 1 tab PO Q4H PRN post op pain #30 03/03/22 mg tablet tabs ferrous sulfate 325 mg (65 mg 325 mg PO BID anemia #60 tabs 03/23/22 iron) tablet linezolid 600 mg tablet (Zyvox) 600 mg PO BID staph cellulitis #60 03/23/22 tabs Allergies Allergy/AdvReac Type Severity Reaction Status Date / Time No Known Allergies Allergy Verified 03/31/22 15:19 [facility] Disclaimer: The information contained in this section may have been updated after the patient was seen, as this information can be updated by other users. Medical History Abnormal ankle brachial index (ALAN) Abnormal EKG Acute urinary tract infection Anemia Arthralgia of ankle Bacteremia due to Escherichia coli CAD (coronary artery disease) Campylobacter diarrhea Cellulitis of left foot Chronic systolic heart failure Depression Dermatitis Diabetes mellitus, type 2 Diabetic foot infection Diabetic infection of right foot Diabetic ulcer of right foot associated with diabetes mellitus due to underlying condition, with fat layer exposed Dizziness Dyspnea Elevated troponin Encounter for pre-operative cardiovascular clearance Encounter for wound care Fever Foot abscess, right Gangrene of right foot HHD (hypertensive heart disease) History of CVA (cerebrovascular accident) HLD (hyperlipidemia) Hypokalemia Hyponatremia Hypotension Ischemic cardiomyopathy Left foot infection Left shift MRSA (m
--- NOTE | 2022-04-06 17:48 | PC.NURSE ---
Report called to Candace (sp?) RN on Med Surg unit 213 for pt being admitted with urosepsis, now hemodynamically stable and receiving second IVF bolus, and vanco infusing currently. No further questions.
--- NOTE | 2022-04-06 18:03 | PC.NURSE ---
arrived to floor by stretcher from ED
--- NOTE | 2022-04-06 18:44 | PC.NURSE ---
Dr. Nickerson bonbon cream warmer for Dr. Maldonado, Dr. Liya piper for blood pressures
--- NOTE | 2022-04-06 18:51 | PC.NURSE ---
talked to Dr. Nickerson, levophed drip ordered.
[2022-04-06 19:10] LABS: Reflex Lactic Add Lactic Reflex
--- NOTE | 2022-04-06 19:46 | PC.WOUNDNOTE ---
left stump left stump
[2022-04-06 19:53] LABS: Lactic Acid Follow Up (RFLX 1) 2.1 mmol/L (0.7-2.1)
[2022-04-06 20:15] LABS: POC Glucose,Bedside 224 (70-110)
--- NOTE | 2022-04-06 20:39 | PC.NURSE ---
1950 maps have been >65 consecutively over 30minutes, levophed drip held to assess, 2019 levophed started back at 2mcg/min for b/p 72/35 and map 47, pt was not given PO meds due to pt confusion and not taking in po well at this time. dr brennan was called an notified of pt meds coreg and entresto held at this time, also noted lispro 10units ordered to be given instead of ssi order, note telephone order received to stop the order for rountine humalog and start low intensity ssi repeated and verified.
[2022-04-06 21:06] LABS: Reflex Lactic (2 hrs) Add Lactic Reflex
[2022-04-06 23:09] LABS: Lactic Acid Follow up (RFLX 2) 1.3 mmol/L (0.7-2.1)
[2022-04-07] VITALS (41 sets, daily range): BP systolic 99–144; BP diastolic 41–84; PULSE 97–122; RESP 17–20; TEMP 36.6–37.1; O2SAT 97–100; BMI 19.6
[2022-04-07 01:24] LABS: POC Glucose,Bedside 180 (70-110)
--- NOTE | 2022-04-07 01:44 | PC.NURSE ---
2230 levophed increased to 4mcg/min for sbp <90 and map <65 0145 levophed decreased to 2mcg/min for sbp >95 and maps >65 at this time. pt is alert to name only and is confused to place and time, pt restless and moaning out at times and talking to self but words are jumbled and not making any sense, when asked if hurting patient states no im not hurting , pt is able to verbalize her name.
--- NOTE | 2022-04-07 02:47 | PC.NURSE ---
0247 levophed drip stopped for b/p maintaining sbp >95 and map >65 at this time.
--- NOTE | 2022-04-07 05:30 | PC.NURSE ---
pt more alert this am, pt oriented to self only and confused to place and time, pt moans out frequently. wound vac to left stump intact, pt turned q2 hours but wiggles self in bed often, moisture barrier appled to buttocks and rectal area for comfort, see wound pics, pt off levophed at this times as b/p's are with sbp's > 95 and maps are >65 and have remained since drip was turned off at 0247am, f/c with urine output cloudy.
[2022-04-07 05:51] LABS: Basophils # 0.1 K/mm3 (0-0.2); Basophils % 0.4 % (0.1-2.0); Eosinophils # 0.1 K/mm3 (0.0-0.4); Eosinophils % 0.9 % (0.1-12.0); Hematocrit 21.7 % (37.0-47.0); Lymphocytes # 1.9 K/mm3 (0.7-4.5); Lymphocytes % 13.6 % (10-50); Mean Corpuscular HGB Conc 32.9 g/dL (31.8-35.4); Mean Corpuscular Hemoglobin 27.8 pg (27.0-31.2); Mean Corpuscular Volume 84.4 fl (81-99); Mean Platelet Volume 7.4 fl (7.4-10.4); Monocytes # 0.4 K/mm3 (0.1-1.0); Monocytes % 2.9 % (1.7-9.3); Neutrophils # 11.5 K/mm3 (1.8-7.8); Neutrophils % 82.2 % (37.0-80.0); Platelet Count 301 K/mm3 (142-424); Red Blood Count 2.57 M/mm3 (4.20-5.40); Red Cell Distribution Width 19.1 % (11.5-17.5)
[2022-04-07 05:54] LABS: Hemoglobin 7.1 g/dL (12.2-16.2)
[2022-04-07 05:56] LABS: Anion Gap 16.4 mEq/L (5-15); Blood Urea Nitrogen 42 mg/dl (7-17); Calcium 8.4 mg/dl (8.4-10.2); Carbon Dioxide 17 mmol/L (22.0-30.0); Chloride 108 mmol/L (98-107); Creatinine Clearance Estimated 49 mL/min (50-200); Estimated Glomerular Filt Rate 59 ml/min (>60); GFR (African American) 71 ML/MIN (>60); Glucose 138 mg/dl (74-100); Magnesium 2.1 mg/dl (1.6-2.3); Potassium 3.4 mmoL/L (3.5-5.1); Sodium 138 mmol/L (136-145)
[2022-04-07 05:57] LABS: Lactic Acid 0.9 mmol/L (0.7-2.1)
[2022-04-07 06:16] LABS: POC Glucose,Bedside 155 (70-110)
--- NOTE | 2022-04-07 07:58 | EXP.PHA.CONS ---
Pharmacy Consult Date: 04/07/22 Time: 07:58 Referring provider: DR. ALMARAZ Reason for Consult:: VANCOMYCIN DOSING Allergies Allergy/AdvReac Type Severity Reaction Status Date / Time No Known Allergies Allergy Verified 03/31/22 15:19 Home Medications Medication Instructions Recorded Confirmed Type amitriptyline 100 mg tablet 100 mg PO HS Depression/SLEEP 10/22/17 04/06/22 History cyanocobalamin (vitamin B-12) 1,000 mcg PO DAILY Supplement 09/04/19 04/06/22 History 1,000 mcg tablet gabapentin 600 mg tablet 600 mg PO TID neuropathy 09/04/19 04/06/22 History insulin glargine 100 unit/mL 40 unit SQ HS Diabetes 09/16/20 04/06/22 History subcutaneous solution insulin lispro 100 unit/mL 10 unit SQ AC Diabetes 09/16/20 04/06/22 History subcutaneous cartridge atorvastatin 40 mg tablet 40 mg PO DAILY Cholesterol 11/15/21 04/06/22 History cholecalciferol (vitamin D3) 25 25 mcg PO DAILY Supplement 01/10/22 04/06/22 History mcg (1,000 unit) capsule sacubitril 24 mg-valsartan 26 mg 1 tab PO BID bp #180 tabs 01/24/22 04/06/22 Rx tablet ticagrelor 90 mg tablet 90 mg PO BID Heart disease/blood 01/28/22 04/06/22 Rx thinner #60 tabs hydrocodone 5 mg-acetaminophen 325 1 tab PO Q4H PRN post op pain #30 03/03/22 04/06/22 Rx mg tablet tabs ferrous sulfate 325 mg (65 mg 325 mg PO BID anemia #60 tabs 03/23/22 04/06/22 Rx iron) tablet linezolid 600 mg tablet (Zyvox) 600 mg PO BID staph cellulitis #60 03/23/22 04/06/22 Rx tabs carvedilol 6.25 mg tablet 6.25 mg PO BID blood pressure 04/06/22 04/06/22 History empagliflozin 10 mg tablet 10 mg PO DAILY Diabetes 04/06/22 04/06/22 History (Jardiance) spironolactone 25 mg tablet 25 mg PO DAILY Supplement 04/06/22 04/06/22 History New Prescriptions to Start Prescriptions: Height: 1.52 m Weight: 45.416 kg Laboratory Results:: Laboratory Results - last 24 hr 04/06/22 13:49: POC Glucose 277 H 04/06/22 13:50: WBC 22.7 H*, RBC 3.76 L, Hgb 10.4 L, Hct 31.9 L, MCV 84.7, MCH 27.5, MCHC 32.5, RDW 18.6 H, Plt Count 377, MPV 7.0 L, Neut % (Auto) 90.3 H, Lymph % (Auto) 5.9 L, [place] % (Auto) 1.8, Eos % (Auto) 1.5, Baso % (Auto) 0.6, Neut # (Auto) 20.5 H, Lymph # (Auto) 1.3, [place] # (Auto) 0.4, Eos # (Auto) 0.3, Baso # (Auto) 0.1, Total Counted 100, Neutrophils % (Manual) 86 H, Lymphocytes % (Manual) 12, Monocytes % (Manual) 2, Platelet Estimate Normal, RBC Morphology Normal 04/06/22 13:50: Sodium 134 L, Potassium 4.2, Chloride 98, Carbon Dioxide 13 L, Anion Gap 27.2 H, BUN 70 H, Creatinine 2.40 H, Estimated Creat Clear 18, Estimated GFR 21 L, Est GFR ( Amer) 26 L, Glucose 243 H, Calcium 9.0, Magnesium 2.5 H, Total Bilirubin 0.5, AST 35, ALT 19, Alkaline Phosphatase 187 H, C-Reactive Protein 145.2 H, Total Protein 6.6, Albumin 3.2 L, Globulin 3.4 H, Albumin/Globulin Ratio 0.9 L, Lipase 23, Procalcitonin 86.6 H 04/06/22 14:20: Specimen Source Left brachial, O2 % 2 lpm, ABG pH 7.43, ABG pCO2 22.7 L, ABG pO2 101.3 H, ABG HCO3 14.6 L, ABG Total CO2 15.3 L, ABG O2 Saturation 98, ABG Base Excess -9.8 L, Sidney Test n/a 04/06/22 14:50: Blood Type O Positive, Antibody Screen Negative 04/06/22 15:04: SARS-CoV-2 (PCR) Not detected, Influenza A Untype (PCR) Not detected, Influenza Type B (PCR) Not detected 04/06/22 15:05: PT 12.4, INR 1.16 H 04/06/22 15:05: Lactate 2.5 H 04/06/22 15:15: Urine Color Yellow, Urine Appearance Turbid, Urine pH 5.5, Ur Specific [place] 1.025, Urine Protein 2+, Urine Glucose (UA) 1+, Urine Ketones Trace, Urine Blood 3+, Urine Nitrate Negative, Urine Bilirubin Negative, Urine Urobilinogen 0.2, Ur Leukocyte Esterase 2+ A, Urine RBC Tntc, Urine WBC Tntc, Urine Bacteria 1+, Urine Yeast 4+ 04/06/22 17:20: Lactate 2.1 04/06/22 19:49: POC Glucose 224 H 04/06/22 21:36: Lactate 1.3 04/07/22 01:16: POC Glucose 180 H 04/07/22 05:40: POC Glucose 155 H 04/07/22 05:41: WBC 14.0 H D, RBC 2.57 L D, Hgb 7.1 L D, Hct 21.7 L, MCV 84.4, MCH 27.8, MCHC 32.9, RDW 19.1 H, Plt Count 301, MPV 7.4, N
--- NOTE | 2022-04-07 08:03 | EXP.PN ---
Subjective *Date: 04/07/22 *Time: 08:03 Interval history: Patient states she did not sleep well. She does not know why. She denies pain and shortness of breath. She states she is somewhat nauseated and does not feel like eating. Per nursing: Norepinephrine drip has been off since 230. She is receiving IV fluids at 125 an hour. She remains tachycardic but has not received any p.o. medicines due to altered mental status. Nursing will give her p.o. meds now. Blood pressure this morning is 102/55 with a heart rate of 111. She is afebrile with O2 sats at 99%. White blood cell count has decreased from 22.7 down to 14. Hemoglobin has decreased from 10.4-7.1 probably somewhat due to hydration. Sodium is 138 with a potassium of 3.4. BUN is 42 and creatinine is 1. Blood and urine cultures are pending. Chest x-ray yesterday showed no acute process. Exam Data for Last 24 hours Vital signs and Labs for Last 24 Hours: Temp Pulse Resp BP Pulse Ox 97.9 F 111 H 20 102/55 L 99 04/07/22 07:57 04/07/22 07:00 04/07/22 07:00 04/07/22 07:00 04/07/22 07:00 Laboratory Results - last 24 hr 04/06/22 13:49: POC Glucose 277 H 04/06/22 13:50: WBC 22.7 H*, RBC 3.76 L, Hgb 10.4 L, Hct 31.9 L, MCV 84.7, MCH 27.5, MCHC 32.5, RDW 18.6 H, Plt Count 377, MPV 7.0 L, Neut % (Auto) 90.3 H, Lymph % (Auto) 5.9 L, [place] % (Auto) 1.8, Eos % (Auto) 1.5, Baso % (Auto) 0.6, Neut # (Auto) 20.5 H, Lymph # (Auto) 1.3, [place] # (Auto) 0.4, Eos # (Auto) 0.3, Baso # (Auto) 0.1, Total Counted 100, Neutrophils % (Manual) 86 H, Lymphocytes % (Manual) 12, Monocytes % (Manual) 2, Platelet Estimate Normal, RBC Morphology Normal 04/06/22 13:50: Sodium 134 L, Potassium 4.2, Chloride 98, Carbon Dioxide 13 L, Anion Gap 27.2 H, BUN 70 H, Creatinine 2.40 H, Estimated Creat Clear 18, Estimated GFR 21 L, Est GFR ( Amer) 26 L, Glucose 243 H, Calcium 9.0, Magnesium 2.5 H, Total Bilirubin 0.5, AST 35, ALT 19, Alkaline Phosphatase 187 H, C-Reactive Protein 145.2 H, Total Protein 6.6, Albumin 3.2 L, Globulin 3.4 H, Albumin/Globulin Ratio 0.9 L, Lipase 23, Procalcitonin 86.6 H 04/06/22 14:20: Specimen Source Left brachial, O2 % 2 lpm, ABG pH 7.43, ABG pCO2 22.7 L, ABG pO2 101.3 H, ABG HCO3 14.6 L, ABG Total CO2 15.3 L, ABG O2 Saturation 98, ABG Base Excess -9.8 L, [place] Test n/a 04/06/22 14:50: Blood Type O Positive, Antibody Screen Negative 04/06/22 15:04: SARS-CoV-2 (PCR) Not detected, Influenza A Untype (PCR) Not detected, Influenza Type B (PCR) Not detected 04/06/22 15:05: PT 12.4, INR 1.16 H 04/06/22 15:05: Lactate 2.5 H 04/06/22 15:15: Urine Color Yellow, Urine Appearance Turbid, Urine pH 5.5, Ur Specific [place] 1.025, Urine Protein 2+, Urine Glucose (UA) 1+, Urine Ketones Trace, Urine Blood 3+, Urine Nitrate Negative, Urine Bilirubin Negative, Urine Urobilinogen 0.2, Ur Leukocyte Esterase 2+ A, Urine RBC Tntc, Urine WBC Tntc, Urine Bacteria 1+, Urine Yeast 4+ 04/06/22 17:20: Lactate 2.1 04/06/22 19:49: POC Glucose 224 H 04/06/22 21:36: Lactate 1.3 04/07/22 01:16: POC Glucose 180 H 04/07/22 05:40: POC Glucose 155 H 04/07/22 05:41: WBC 14.0 H D, RBC 2.57 L D, Hgb 7.1 L D, Hct 21.7 L, MCV 84.4, MCH 27.8, MCHC 32.9, RDW 19.1 H, Plt Count 301, MPV 7.4, Neut % (Auto) 82.2 H, Lymph % (Auto) 13.6, [place] % (Auto) 2.9, Eos % (Auto) 0.9, Baso % (Auto) 0.4, Neut # (Auto) 11.5 H, Lymph # (Auto) 1.9, [place] # (Auto) 0.4, Eos # (Auto) 0.1, Baso # (Auto) 0.1 04/07/22 05:41: Sodium 138, Potassium 3.4 L, Chloride 108 H, Carbon Dioxide 17 L, Anion Gap 16.4 H, BUN 42 H D, Creatinine 1.00 D, Estimated Creat Clear 49, Estimated GFR 59, Est GFR ( Amer) 71 D, Glucose 138 H D, Calcium 8.4, Magnesium 2.1 D 04/07/22 05:41: Lactate 0.9 I & O for Last 24 hours: Intake & Output 04/04/22 04/05/22 04/06/22 04/07/22 11:59 11:59 11:59 11:59 Intake Total 1745 / 1745 Output Total 800 / 800 Balance 945 / 945 Weight 100 lb 2 oz Constitutional Constitutional: no acute distress and somnolent (Somew
--- NOTE | 2022-04-07 08:56 | HMH.PHAINT1 ---
Pharmacy Intervention Comments: Home medication reconciliation completed on patient via external fill history and discharge summary from previous admission. -Jessica Bell, PharmD Candidate 2022
--- NOTE | 2022-04-07 09:17 | PC.NURSE ---
attempted to call daughter at this time to obtain consent for blood transfusion, daughter did not answer at this time
--- NOTE | 2022-04-07 10:06 | PC.NURSE ---
received call back from daughter Jayda Hawthorne, daughter, who consented to pt receiving 2 units of RBCs today
--- NOTE | 2022-04-07 10:34 | HMH.PTWOUND ---
Rehab Inpt Wound Evaluation Rehab IP Wound Evaluation Start: 04/07/22 07:56 Freq: AM Status: Active Protocol: Document 04/07/22 10:24 BARRIE (Rec: 04/07/22 10:34 PHORRUBENS [id number]) Rehab PT Wound Assessment Subjective Subjective 51 yowf adm to [facility] with LAINEY and Sepsis. She had recent L BKA with revision which currently has a VAC dressing in place. She is unsure when the VAC was last changed. She also has multiple other wounds to her R BKA residual limb and R hand. SHe has significant hx of chronic infection, poor circulation, and multiple co-morbidities that delay healing. Wound Right Posterior Finger - 3rd Digit Wound Type PAD Is This a Chronic Wound Yes Wound Length (cm) 2.0 Wound Width (cm) 1.5 Wound Bed Appearance Yellow,Slough Percentage of Eschar (Yellow) (%) 100 Wound Margins Description Well Defined Surrounding Tissue Appearance [place] Drainage Amount None Wound Debridement Amount of Tissue None Removed Dressing Change Patient Tolerance Tolerated Well Right Posterior Leg Wound Type Abrasion Is This a Chronic Wound Yes Wound Length (cm) 6.0 Wound Width (cm) 2.0 Wound Bed Appearance Yellow,Eschar Percentage of Eschar (Yellow) (%) 100 Wound Margins Description Well Defined Drainage Amount None Wound Debridement Amount of Tissue None Removed Dressing Change Patient Tolerance Tolerated Well Right Lateral Knee Wound Type Abrasion Is This a Chronic Wound No Wound Length (cm) 5.0 Wound Width (cm) 5.0 Wound Bed Appearance Eschar Percentage of Eschar (Yellow) (%) 100 Wound Margins Description Well Defined Surrounding Tissue Appearance [place] Drainage Amount None Wound Debridement Amount of Tissue None Removed Dressing Change Patient Tolerance Tolerated Well Right Lower Leg Wound Type unknown etiology possibly pressure vs PAD Is This a Chronic Wound Yes Wound Length (cm) 5.0 Wound Width (cm) 5.0 Wound Bed Appearance Eschar Percentage of Eschar (Brown) (%) 100 Wound Margins Description Well Defined
[2022-04-07 11:48] LABS: POC Glucose,Bedside 150 (70-110)
--- NOTE | 2022-04-07 13:26 | DIET.NUTRFU ---
Received consult for nutritional needs, Based on multiple areas of skin breakdown patient requires extra protein needs 1.2-1.3gm/kg=54-60gm/day. Patient is too confused to educate today. Spoke to nurse about med pass and nursing does not feel she would take prostat AWC to aid in healing, med pass has been challenging. Will review that again when patient's cognition is better. Will add glucerna to try to help with protein intake. Patient is on diabetic diet, no intake noted yet for today. IVF in place for hydration. She is on ABT tx for wound infection, wound care was consulted. Will continue to follow with meal intake and cognition
--- NOTE | 2022-04-07 14:06 | EXP.ORTH.CON ---
History of Present Illness *Admission Date: 04/06/22 *Reason for visit:: Left BKA, sepsis *History of present illness: Cristina is a 51-year-old female patient status post left below knee amputation admitted to the acute inpatient service after presenting to the [facility] emergency department yesterday 04/06/2022 secondary to concern for sepsis. History obtained from emergency department and primary care documentation as patient continues to have altered mental status. Per ER documentation, patient was brought to the emergency department via EMS after a friend was unable to wake her up/noticed the patient had altered mental status yesterday morning. She is status post left below the knee amputation on 02/14/2022 and has had multiple irrigation and debridements since that time performed by Dr. Diop. She was most recently admitted to [facility] from 03/15/20 - 03/23/2022 and discharged home with home health services after declining placement. She has been receiving home health services for wound VAC changes and has been on oral Zyvox since her discharge from the hospital. Today the patient is lying in bed comfortably. She is able to answer most of my questions appropriately, but continues to seem confused. She denies any particular symptoms or concerns at this time. [facility] Disclaimer: The information contained in this section may have been updated after the patient was seen, as this information can be updated by other users. Medical History Abnormal ankle brachial index (ALAN) Abnormal EKG Acute urinary tract infection Anemia Arthralgia of ankle Bacteremia due to Escherichia coli CAD (coronary artery disease) Campylobacter diarrhea Cellulitis of left foot Chronic systolic heart failure Depression Dermatitis Diabetes mellitus, type 2 Diabetic foot infection Diabetic infection of right foot Diabetic ulcer of right foot associated with diabetes mellitus due to underlying condition, with fat layer exposed Dizziness Dyspnea Elevated troponin Encounter for pre-operative cardiovascular clearance Encounter for wound care Fever Foot abscess, right Gangrene of right foot HHD (hypertensive heart disease) History of CVA (cerebrovascular accident) HLD (hyperlipidemia) Hypokalemia Hyponatremia Hypotension Ischemic cardiomyopathy Left foot infection Left shift MRSA (methicillin resistant staph aureus) culture positive Nail dystrophy Non-healing wound NYHA Class II cardiovascular function Osteomyelitis Postoperative dehiscence of skin wound Postoperative wound dehiscence Postoperative wound dehiscence Pulmonary hypertension, moderate to severe Right foot ulcer Sepsis Severe mitral valve regurgitation Severe tricuspid valve regurgitation Stroke Tachycardia Tobacco dependence syndrome Type 2 diabetes mellitus Unstable angina pectoris Urinary tract infection Surgical History History of cardiac defibrillator placement History of laparoscopic cholecystectomy History of right below knee amputation History of tubal ligation Status post below-knee amputation of left lower extremity Family History Diabetes Heart attack Hypertension Social History (Updated 04/06/22 @ 17:52 by Nancy Shay RN) Smoking Status: Current every day smoker tobacco type: cigarettes packs per day: 1 years smoked: 20 second hand exposure: No alcohol intake: never substance use type: denies use current occupational status: unemployed and disabled Travel in the last 8 weeks: None housing: house current occupational exposures/hazards: No caffeine: Yes Review of Systems Constitutional Constitutional: Denies headache(s) and Reports weakness ENT Ears, Nose, Mouth, and Throat: Denies headache(s) *Neurologic Neurologic: Denies headache(s) and Reports w
[2022-04-07 16:43] LABS: POC Glucose,Bedside 153 (70-110)
--- NOTE | 2022-04-07 17:55 | PC.NURSE ---
pt is alert to self only, has had episodes of bowel incontinence, dark in color, leary in place, has received 2 units of blood this shift with no s/s of transfusion reaction, remains on room air, has been tachy t/o shift, Dr. Maldonado aware of dark stools and stated to D/C the sub q heparin
[2022-04-07 20:21] LABS: Hematocrit 32.3 % (37.0-47.0)
[2022-04-07 20:23] LABS: POC Glucose,Bedside 176 (70-110)
[2022-04-07 20:35] LABS: Hemoglobin 11.1 g/dL (12.2-16.2)
[2022-04-08] VITALS: BP 117/68; PULSE 105; PULSE 106; RESP 33; O2SAT 100
--- NOTE | 2022-04-08 01:40 | PC.NURSE ---
Lab called preliminary blood culture gram neg bacilli.
--- NOTE | 2022-04-08 01:50 | PC.NURSE ---
Patient nurse Aster informed of preliminary blood cultures, positive for gram neg bacilli.
--- NOTE | 2022-04-08 02:16 | PC.NURSE ---
notified MD Selby of pt's positive culture and what antibiotics pt is currently on
[2022-04-08 04:00] VITALS: BP 128/76; PULSE 126; PULSE 127; RESP 22; TEMP 36.8; O2SAT 98; BMI 19.8
[2022-04-08 06:22] LABS: Basophils # 0.1 K/mm3 (0-0.2); Basophils % 0.7 % (0.1-2.0); Eosinophils # 0.1 K/mm3 (0.0-0.4); Eosinophils % 0.3 % (0.1-12.0); Hematocrit 35.3 % (37.0-47.0); Hemoglobin 11.6 g/dL (12.2-16.2); Lymphocytes # 2.1 K/mm3 (0.7-4.5); Lymphocytes % 13.9 % (10-50); Mean Corpuscular HGB Conc 32.9 g/dL (31.8-35.4); Mean Corpuscular Volume 88.1 fl (81-99); Mean Platelet Volume 7.3 fl (7.4-10.4); Monocytes # 0.6 K/mm3 (0.1-1.0); Neutrophils # 12.2 K/mm3 (1.8-7.8); Neutrophils % 81.1 % (37.0-80.0); Platelet Count 240 K/mm3 (142-424); Red Blood Count 4.01 M/mm3 (4.20-5.40); Red Cell Distribution Width 17.1 % (11.5-17.5)
[2022-04-08 06:24] LABS: MANUAL DIFFERENTIAL MANUAL DIFFERENTIAL (MANUAL DIFF)
[2022-04-08 06:34] LABS: POC Glucose,Bedside 114 (70-110)
[2022-04-08 07:23] LABS: Lymphocytes % 17 % (10-50); Monocytes % 4 % (2-9); Neutrophils % 79 % (42-76); Total Cells Counted 100
[2022-04-08 07:24] LABS: Platelet Estimate Normal; RBC Morphology Normal
[2022-04-08 08:00] VITALS: BP 128/82; PULSE 118; PULSE 119; PULSE 120; RESP 18; TEMP 36.6; O2SAT 100; O2SAT 99
--- NOTE | 2022-04-08 08:15 | EXP.ACUTE.PN ---
Subjective *Date: 04/08/22 *Time: 08:15 Interval history: Patient is a little more awake this am. Still confused at times. She thinks she slept and she is trying to hold her cup and drink by herself today. She denies any pain. Medical Exam Vital signs and Labs for Last 24 Hours: Vital Signs Temp Pulse Pulse Resp BP BP Pulse Ox 04/08/22 04:00 126 H 04/08/22 04:00 98.2 F 127 H 22 128/76 98 04/08/22 00:00 106 H 04/08/22 00:00 105 H 33 H 117/68 100 04/07/22 20:00 100 04/07/22 20:00 111 H 19 130/76 100 04/07/22 20:00 120 H 04/07/22 16:00 110 H 04/07/22 18:00 98.3 F 110 H 18 129/74 100 04/07/22 10:00 99 H 20 113/63 99 04/07/22 17:00 98.0 F 111 H 18 136/74 100 04/07/22 16:00 98.2 F 108 H 20 139/84 100 04/07/22 15:45 98.0 F 108 H 20 137/75 100 04/07/22 15:30 98.0 F 107 H 18 144/82 H 100 04/07/22 15:15 98.2 F 105 H 18 134/68 100 04/07/22 12:00 100 H 04/07/22 15:10 98.3 F 105 H 18 144/69 H 100 04/07/22 15:05 98.4 F 106 H 18 134/63 100 04/07/22 15:00 98.2 F 104 H 18 106/58 L 100 04/07/22 14:45 98.2 F 103 H 20 118/52 L 100 04/07/22 13:55 98.3 F 107 H 18 122/73 100 04/07/22 13:40 98.2 F 104 H 18 122/82 100 04/07/22 12:40 98.0 F 103 H 18 109/64 L 100 04/07/22 11:40 98.2 F 101 H 18 111/62 100 04/07/22 11:25 98.8 F 100 H 17 105/56 L 100 04/07/22 11:10 98.8 F 102 H 17 107/63 L 100 04/07/22 10:55 98.3 F 99 H 18 99/57 L 100 04/07/22 10:50 98.8 F 98 H 18 103/62 L 100 04/07/22 10:45 98.7 F 99 H 17 113/64 100 04/07/22 10:40 98.0 F 97 H 18 106/62 L 100 04/07/22 10:25 98.1 F 98 H 18 114/58 L 99 Intake and Output 04/07/22 04/08/22 04/08/22 19:59 03:59 11:59 Intake Total 760 / 2290 1530 / 2290 Output Total 950 / 1750 600 / 1750 200 / 1750 Balance -190 / 540 930 / 540 -200 / 540 Intake: Intake, Oral Amount 60 / 60 Intake, Total IV Amount 200 / 1730 1530 / 1730 Cefepime HCl 1 gm In 0.9 % 100 / 200 100 / 200 Sodium Chloride 50 ml @ 100 mls /hr IV Q12H QUEENIE Rx#:[id number] Metronidaz/Sod Chl 500 mg In 100 / 300 200 / 300 100 ml @ 100 mls/hr IV Q8H QUEENIE Rx#:[id number] Ringers Solution,Lactated 1,000 1230 / 1230 ml @ 125 mls/hr IV .Q8H QUEENIE Rx #:[id number] Intake (Blood Product) Amt 500 / 500 Red Blood Cells Unit 250 / 250 [id number] Red Blood Cells Unit 250 / 250 [id number] Output: Output, Urine Amount 0 / 800 600 / 800 200 / 800 Output, Urine Amount (Catheter) 950 / 950 Hernandez 950 / 950 Other: Number of Unmeasured Voids 0 Weight 101 lb 3.075 oz Patient Weight 04/08/22 11:59 Weight 101 lb 3.075 oz Laboratory Results - last 24 hr 04/06/22 14:50: Blood Type O Positive, Antibody Screen Negative, Crossmatch (AHG) See Detail 04/07/22 11:40: POC Glucose 150 H 04/07/22 16:25: POC Glucose 153 H 04/07/22 19:36: POC Glucose 176 H 04/07/22 20:04: Hgb 11.1 L D, Hct 32.3 L 04/08/22 06:11: POC Glucose 114 H 04/08/22 06:12: WBC 15.0 H, RBC 4.01 L D, Hgb 11.6 L, Hct 35.3 L, MCV 88.1, MCH 29.0, MCHC 32.9, RDW 17.1, Plt Count 240, MPV 7.3 L, Neut % (Auto) 81.1 H, Lymph % (Auto) 13.9, [place] % (Auto) 4.0, Eos % (Auto) 0.3, Baso % (Auto) 0.7, Neut # (Auto) 12.2 H, Lymph # (Auto) 2.1, [place] # (Auto) 0.6, Eos # (Auto) 0.1, Baso # (Auto) 0.1, Total Counted 100, Neutrophils % (Manual) 79 H, Lymphocytes % (Manual) 17, Monocytes % (Manual) 4, Platelet Estimate Normal, RBC Morphology Normal I & O for Labs for Last 24 Hours: Intake & Output 04/05/22 04/06/22 04/07/22 04/08/22 11:59 11:59 11:59 11:59 Intake Total 1745 / 1745 2290 / 2290 Output Total 800 / 800 1750 / 1750 Balance 945 / 945 540 / 540 Weight 100 lb 1.438 oz 101 lb 3.075 oz Microbiology Reports for the Last 24 Hours: Micro
--- NOTE | 2022-04-08 09:43 | HMH.PTEV ---
Physical Therapy Evaluation Rehab PT IP Evaluation Start: 04/08/22 08:59 Freq: ONCE Status: Active Protocol: Document 04/08/22 09:38 BARRIE (Rec: 04/08/22 09:43 PHOSUSAN [id number]) Subjective/History History History 51 yowf adm to [facility] with LAINEY and Sepsis. She had recent L BKA with revision which currently has a VAC dressing in place. She is unsure when the VAC was last changed. She also has multiple other wounds to her R BKA residual limb and R hand. She has significant hx of chronic infection, poor circulation, and multiple co-morbidities that delay healing. She was previously staying with a friend and uses a w/c for mobility at all times. She is considerably more confused this am. Subjective Subjective Pt intermittently yells out in pain, but is unable to rate pain when asked due to asked. Tender to palpation throughout B LE, not just in kamari-wound areas. Rehab PT IP Eval Objective Appearance Patient Behavior Restless,Distractible,Confused Patient Orientation Person Difficulty following instructions moderate Speech Pattern Clear Ambulation Patient Able to Ambulate No Balance Ability to Arise Unable Sitting Balance Leans or slides in chair Dynamic Sitting Balance Ability Poor Transfers Bed Transfer Ability Maximum x 1 (75% assist) Rehab PT IP prob,goals,plan Problems Date of Evaluation: 04/08/22 PT IP Problems Bed Mobility,Transfers Rehab Potential Rehab Potential Fair Plan PT Intervention Plan Bed Mobility,Transfers PT Plan Frequency Daily Duration LOS Discharge Goals Bed Transfer Ability Moderate x 2 (50% assist) Discharge Plan PT Discharge Plan Pt is currently most appropriate for [facility] SNF placement due to multiple co- morbid conditions. G -code Required No Eval Complexity Eval Charge Codes 10027 - High Complexity
--- NOTE | 2022-04-08 10:32 | ECG_ITS ---
APPROVED REPORT Exam: Resting ECG HR:113 bpm ECG Measurements Heart Rate 113 AXES IL 146 P 72 QRSd 142 QRS -1 QT 348 T 200 QTc 415 Conclusion SINUS TACHYCARDIA LEFT BUNDLE BRANCH BLOCK [120+ ms QRS DURATION, 80+ ms Q/S IN V1/V2, 85+ ms R IN I/aVL/V5/V6] ABNORMAL ECG UNCONFIRMED REPORT Electronically signed by : Kennedy Selby MD 04/08/2022 16:03:13
--- NOTE | 2022-04-08 10:38 | EXP.CARD.CON ---
History of Present Illness History of Present Illness Consult date: 04/08/22 Requesting physician: Hugh Maldonado Chief complaint: sepsis, tachycardia, CHF History of present illness: This is a 51-year-old white female who is status post bilateral below the knee amputation. The patient was recently admitted to the hospital with sepsis and has subsequently been readmitted to the hospital with sepsis and UTI. The patient was brought in by EMS when a friend was unable to wake her and noticed that she had an altered mental status yesterday. The patient is really confused this morning. She is able to tell me her name and that she is at the hospital but she is very confused to time and about anything that is going on with her. This is very unusual for her. She denies any chest pain or pressure. She denies any shortness of breath. She denies any fever, chills, nausea, vomiting, diarrhea, PND orthopnea. But due to her confusion I am not sure how accurate her review of systems is at this time. The patient has been admitted for sepsis and is currently on antibiotics. The patient is tachycardic this morning. [facility] Disclaimer: The information contained in this section may have been updated after the patient was seen, as this information can be updated by other users. Medical History (Updated 04/08/22 @ 10:50 by Yeimi Bliss APRN) Abnormal ankle brachial index (ALAN) Abnormal EKG Acute urinary tract infection Altered mental status Anemia Arthralgia of ankle Bacteremia due to Escherichia coli CAD (coronary artery disease) Campylobacter diarrhea Cellulitis of left foot Chronic systolic heart failure Depression Dermatitis Diabetes mellitus, type 2 Diabetic foot infection Diabetic infection of right foot Diabetic ulcer of right foot associated with diabetes mellitus due to underlying condition, with fat layer exposed Dizziness Dyspnea Elevated troponin Encounter for pre-operative cardiovascular clearance Encounter for wound care Fever Foot abscess, right Gangrene of right foot HHD (hypertensive heart disease) History of CVA (cerebrovascular accident) HLD (hyperlipidemia) Hypokalemia Hyponatremia Hypotension Ischemic cardiomyopathy Left foot infection Left shift MRSA (methicillin resistant staph aureus) culture positive Nail dystrophy Non-healing wound NYHA Class II cardiovascular function Osteomyelitis Postoperative dehiscence of skin wound Postoperative wound dehiscence Postoperative wound dehiscence Pulmonary hypertension, moderate to severe Right foot ulcer Sepsis Severe mitral valve regurgitation Severe tricuspid valve regurgitation Sinus tachycardia Stroke Tachycardia Tobacco dependence syndrome Type 2 diabetes mellitus Unstable angina pectoris Urinary tract infection Surgical History History of cardiac defibrillator placement History of laparoscopic cholecystectomy History of right below knee amputation History of tubal ligation Status post below-knee amputation of left lower extremity Family History Diabetes Heart attack Hypertension Social History (Updated 04/06/22 @ 17:52 by Nancy Shay RN) Smoking Status: Current every day smoker tobacco type: cigarettes packs per day: 1 years smoked: 20 second hand exposure: No alcohol intake: never substance use type: denies use current occupational status: unemployed and disabled Travel in the last 8 weeks: None housing: house current occupational exposures/hazards: No caffeine: Yes Review of Systems Review of Systems Review of systems:: pertinent systems reviewed and negative unless documented below Constitutional Constitutional: Reports system reviewed and no additional complaints, except as documented, Reports lethargy and Reports weakness Eyes Eyes: Reports system reviewed and no additional complaints, except as documente
--- NOTE | 2022-04-08 10:51 | CT_ITS ---
FINAL REPORT TECHNIQUE: Thin section axial images were obtained from skull base to vertex without contrast. Coronal reconstruction images were obtained from the axial data. Exam was performed using dose reduction technique. CLINICAL HISTORY: altered mental status COMPARISON: 10/02/2018 FINDINGS: There is no mass effect or midline shift. There is no hydrocephalus. There is no intracranial hemorrhage. The posterior fossa is without acute abnormality. The basilar cisterns are preserved. The soft tissues are without acute abnormality. No acute osseous abnormality is identified. IMPRESSION: No acute intracranial abnormality. No change as compared to the prior exam. Reviewed, Interpreted and Dictated by Corrina Gayle MD Transcribed by Alanna Green Authenticated and [facility]
--- NOTE | 2022-04-08 11:39 | P.PN_ITS ---
Subjective *Date: 04/08/22 *Time: 11:39 Interval history: Patient seen and examined today. She is still not back to baseline in regards to mental capacity. She is scheduled for CT scan of her head without contrast today. Wound VAC is in place with minimal drainage at 125mmHG pressure with good seal. Ortho Exam (Inpt) Vital signs and Labs for Last 24 Hours: Temp Pulse Resp BP Pulse Ox 97.8 F 119 H 18 128/82 100 04/08/22 08:00 04/08/22 08:00 04/08/22 08:00 04/08/22 08:00 04/08/22 08:00 Laboratory Results - last 24 hr 04/06/22 14:50: Blood Type O Positive, Antibody Screen Negative, Crossmatch (AHG) See Detail 04/07/22 11:40: POC Glucose 150 H 04/07/22 16:25: POC Glucose 153 H 04/07/22 19:36: POC Glucose 176 H 04/07/22 20:04: Hgb 11.1 L D, Hct 32.3 L 04/08/22 06:11: POC Glucose 114 H 04/08/22 06:12: WBC 15.0 H, RBC 4.01 L D, Hgb 11.6 L, Hct 35.3 L, MCV 88.1, MCH 29.0, MCHC 32.9, RDW 17.1, Plt Count 240, MPV 7.3 L, Neut % (Auto) 81.1 H, Lymph % (Auto) 13.9, [place] % (Auto) 4.0, Eos % (Auto) 0.3, Baso % (Auto) 0.7, Neut # (Auto) 12.2 H, Lymph # (Auto) 2.1, [place] # (Auto) 0.6, Eos # (Auto) 0.1, Baso # (Auto) 0.1, Total Counted 100, Neutrophils % (Manual) 79 H, Lymphocytes % (Manual) 17, Monocytes % (Manual) 4, Platelet Estimate Normal, RBC Morphology Normal I & O for Labs for Last 24 Hours: Intake & Output 04/05/22 04/06/22 04/07/22 04/08/22 23:59 23:59 23:59 23:59 Intake Total 2505 / 4035 1890 / 1890 Output Total 200 / 200 1550 / 2150 800 / 800 Balance -200 / -200 955 / 1885 1090 / 1090 Weight 96 lb 4 oz 100 lb 1.438 oz 101 lb 3.075 oz Microbiology Reports for the Last 24 Hours: Microbiology 04/06/22 14:45 Blood - Other Blood Culture - Preliminary 04/06/22 15:15 Urine,Catheterized Urine Culture - Preliminary NO GROWTH AFTER 24 HOURS Comment:: Left lower extremity wound VAC in place on the below-knee amputation stump no drainage or infection from the eschar along the posterior aspect of the medial knee. Right lower extremity shows eschar and early skin breakdown around the lateral aspect of the knee eschar at the tip of the stump. Assessment and Plan *Assessment and plan (1) Sepsis: Status: Acute Category: Medical Code(s): A41.9 - Sepsis, unspecified organism (2) Status post below-knee amputation of left lower extremity: Status: Acute Category: Surgical Code(s): Z89.512 - Acquired absence of left leg below knee (3) History of right below knee amputation: Status: Acute Category: Surgical Code(s): Z89.511 - Acquired absence of right leg below knee Plan Continue with IV antibiotics. All cultures that were operative in nature did not finalize in regards to gram-negative mt identification. We did have identification of gram-positive. Definitive planning would require complete resolution of sepsis and clearing of the infection to allow for above-knee amputation. Can continue with wound VAC changes,likely decreases to twice per week. Patient will likely require long-term care facility to continue with IV antibiotics as well as wound care issues.
[2022-04-08 12:00] VITALS: BP 127/64; PULSE 110; PULSE 117; RESP 22; TEMP 36.8; O2SAT 100
[2022-04-08 16:00] VITALS: BP 129/71; PULSE 126; RESP 24; TEMP 36.6; O2SAT 99
--- NOTE | 2022-04-08 17:06 | ECG_ITS ---
APPROVED REPORT Exam: Resting ECG HR:128 bpm ECG Measurements Heart Rate 128 AXES [place] 134 P 71 QRSd 142 QRS -38 QT 315 T 124 QTc 391 Conclusion SINUS TACHYCARDIA LEFT AXIS DEVIATION [QRS AXIS < -30] LEFT BUNDLE BRANCH BLOCK [120+ ms QRS DURATION, 80+ ms Q/S IN V1/V2, 85+ ms R IN I/aVL/V5/V6] ABNORMAL ECG UNCONFIRMED REPORT Electronically signed by : Kennedy Selby MD 04/09/2022 16:21:40
--- NOTE | 2022-04-08 17:54 | PC.NURSE ---
tachycardia noted this evening. dr brennan who was asset protection detective for dr galindo made aware andd ordered 6.25 mg of carvedilol po to be given now. po intake decreased this shift. was medicated with prn pain medication for dsg change. barrier cream applied to bottom. leary cath in place.
[2022-04-08 20:00] VITALS: BP 129/71; PULSE 120; RESP 22; TEMP 36.8; O2SAT 99
[2022-04-08 21:39] LABS: POC Glucose,Bedside 136 (70-110)
[2022-04-09] VITALS (40 sets, daily range): BP systolic 53–149; BP diastolic 00–73; PULSE 60–128; RESP 9–32; TEMP 36.5–37.6; O2SAT 82–100; BMI 19.5
[2022-04-09 00:34] LABS: POC Glucose,Bedside 153 (70-110)
[2022-04-09 00:34] LABS: POC Glucose,Bedside 204 (70-110)
--- NOTE | 2022-04-09 04:43 | PC.NURSE ---
Pt has been awake most of night. Alert to self. Has complained of generalized and back pain. Medicated per may. Wound vac in place to (L) stump. Discoloration to (R) stump noted. Multiple wounds noted to (R) hand. Pt educated on prevention of cross contamination from wounds to other areas of body. HR tachycardic. MD notified early in shift. New orders received to give one dose of metoprolol tartrate 5 mg IV. VSS. Call light in place. Safety measures in place.
[2022-04-09 06:51] LABS: POC Glucose,Bedside 192 (70-110)
--- NOTE | 2022-04-09 08:12 | CT_ITS ---
PROCEDURE INFORMATION: Exam: CT Head Without Contrast Exam date and time: 04/08/2022 11:23 AM Age: 51 years old Clinical indication: Stroke-like symptoms; Altered mental status/memory loss and speech disturbance; Additional info: Stroke alert/protocol TECHNIQUE: Imaging protocol: Computed tomography of the head without contrast. Radiation optimization: All CT scans at this facility use at least one of these dose optimization techniques: automated exposure control; mA and/or kV adjustment per patient size (includes targeted exams where dose is matched to clinical indication); or iterative reconstruction. Other technique: STROKE PROTOCOL was implemented. COMPARISON: HEADWO CT head/brain wo con 10/02/2018 11:30 PM FINDINGS: Brain: Similar small-vessel ischemic changes and generalized intracranial volume loss. There is no evidence of acute intracranial hemorrhage. No mass effect or midline shift. Cerebral ventricles: Ex-vacuo changes of the ventricles. Paranasal sinuses: Visualized sinuses are unremarkable. No fluid levels. Mastoid air cells: Visualized mastoid air cells are well aerated. Bones/joints: Unremarkable. No acute fracture. Soft tissues: Unremarkable. Other findings: There is some limitation to the study secondary to patient motion and patient positioning within the gantry. Also, study is limited as the thin slice images are not completely included on the study. IMPRESSION: No acute intracranial findings evident on this limited exam. ASSESSMENT: ASPECTS ([place] Stroke Program Early CT Score) is 10.
[2022-04-09 08:28] LABS: POC Glucose,Bedside 206 (70-110)
--- NOTE | 2022-04-09 08:54 | PC.NURSE ---
0750 change noted in pt since bedside report. left sided facial droop noted, minimal to no movement in left arm. pt unable to follow commands, will not focus with eyes when spoken to, no response to painful stimuli. fsbs 209, rr 30, hr 129. stroke alert called 0808. [address] Nickerson face to face of pt change in condition. notified that staff called stroke alert, since pt had respiratory changes as well, ABG was requested. stat abg ordered 0850 Dr Nickerson requested that blood work be drawn this am, order entered for stat cbc, bmp
[2022-04-09 09:00] LABS: Allen's Test Patient Unable; Oxygen Room Air %; Source Left Radial
[2022-04-09 09:31] LABS: ABG PO2 58.4 mmhg (80-100)
[2022-04-09 09:32] LABS: ABG PCO2 15.1 mmhg (35.0-45.0); ABG PH 7.15 mmol/L (7.35-7.45)
[2022-04-09 09:33] LABS: ABG Base Excess -23.6 mmol/L (-2.4-2.3); ABG HCO3 5.2 mmhg (22.0-26.0); ABG Oxygen Saturation 84 % (90-100); ABG TCO2 5.7 mmhg (23-27)
--- NOTE | 2022-04-09 09:45 | PC.NURSE ---
received results for abg at 0910, results appeared to be a mixed gas. abg redrawn. results received at [address] Nickerson and gave abg results to md over phone. new orders are to await cbc and bmp results.
[2022-04-09 09:48] LABS: Basophils # 0.2 K/mm3 (0-0.2); Basophils % 0.6 % (0.1-2.0); Eosinophils % 0.1 % (0.1-12.0); Hematocrit 35.7 % (37.0-47.0); Lymphocytes # 0.9 K/mm3 (0.7-4.5); Lymphocytes % 2.8 % (10-50); Mean Corpuscular HGB Conc 30.9 g/dL (31.8-35.4); Mean Corpuscular Hemoglobin 29.2 pg (27.0-31.2); Mean Corpuscular Volume 94.5 fl (81-99); Mean Platelet Volume 8.2 fl (7.4-10.4); Monocytes # 1.1 K/mm3 (0.1-1.0); Monocytes % 3.5 % (1.7-9.3); Neutrophils # 29.9 K/mm3 (1.8-7.8); Neutrophils % 92.9 % (37.0-80.0); Platelet Count 301 K/mm3 (142-424); Red Blood Count 3.78 M/mm3 (4.20-5.40); Red Cell Distribution Width 16.7 % (11.5-17.5); White Blood Count 32.1 K/mm3 (4.8-10.8)
[2022-04-09 09:57] LABS: MANUAL DIFFERENTIAL MANUAL DIFFERENTIAL (MANUAL DIFF)
[2022-04-09 10:01] LABS: Chloride 118 mmol/L (98-107); Potassium 5.3 mmoL/L (3.5-5.1); Sodium 147 mmol/L (136-145)
[2022-04-09 10:04] LABS: Blood Urea Nitrogen 13 mg/dl (7-17); Creatinine Clearance Estimated 54 mL/min (50-200); Estimated Glomerular Filt Rate 67 ml/min (>60); GFR (African American) 81 ML/MIN (>60)
[2022-04-09 10:05] LABS: Calcium 9.9 mg/dl (8.4-10.2); Glucose 231 mg/dl (74-100)
[2022-04-09 10:12] LABS: Anion Gap 29.3 mEq/L (5-15)
[2022-04-09 10:13] LABS: Carbon Dioxide < 5 mmol/L (22.0-30.0)
--- NOTE | 2022-04-09 10:25 | PC.NURSE ---
attempted to page Dr Maldonado at 1014 to update him on pt labs and change in condition. [address] Nickerson in office and updated him with critical lab results. (CO2 less than 5). informed MD that pt might require a rapid response, reminded md pt is still altered, rr 35-40 and pt may require intubation. md stated that pt o2 sat was 100, re-reported to md that pt po2 was 58.2 (normal po2 is 80/100). staff reviewed antibiotics with MD per his request. Dr Nickerson states that he will address changes in abx with pharmacist.
[2022-04-09 10:42] LABS: Lymphocytes % 6 % (10-50); Monocytes % 4 % (2-9); Neutrophils % 90 % (42-76); Total Cells Counted 100
[2022-04-09 10:43] LABS: Hypochromasia 2+; Platelet Estimate Normal
[2022-04-09 10:45] LABS: Burr Cells 1+; Poikilocytosis 1+; Tear Drop Cells 1+
--- NOTE | 2022-04-09 10:49 | ECG_ITS ---
APPROVED REPORT Exam: Resting ECG HR:123 bpm ECG Measurements Heart Rate 123 AXES AZ 147 P 70 QRSd 138 QRS -38 QT 318 T 143 QTc 391 Conclusion SINUS TACHYCARDIA LEFT AXIS DEVIATION [QRS AXIS < -30] LEFT BUNDLE BRANCH BLOCK [120+ ms QRS DURATION, 80+ ms Q/S IN V1/V2, 85+ ms R IN I/aVL/V5/V6] ABNORMAL ECG UNCONFIRMED REPORT Electronically signed by : Kennedy Selby MD 04/11/2022 20:22:48
--- NOTE | 2022-04-09 11:21 | EXP.ACUTE.PN ---
Subjective *Date: 04/09/22 *Time: 11:21 Interval history: The patient's condition has declined significantly through the night. She has become less responsive, more tachycardic, more tachypneic. Her blood pressure has declined and Levophed has been restarted this morning. Dr. Nickerson on-call was consulted and he ordered changes in IV antibiotics. This partially in response to the elevated white count which is now over 30,000. Hemoglobin is 11 this morning. A blood gas was obtained this morning and shows a pH at 7.1 with low CO2 in order to achieve a PO2 of 58. Thus I have ordered BiPAP. She is now achieving 99% saturation on BiPAP. Her blood pressure is 94/42 with the Levophed initiated. Her heart rate is 120. She is minimally responsive. She had a CT scan of the head yesterday. The CT scan of the head was repeated this morning. Both of the scans were negative. The cardiology note from yesterday is reviewed. There were no changes recommended in medications. We know that we are dealing with a cardiomyopathy with ejection fraction in the 20% range. Medical Exam Vital signs and Labs for Last 24 Hours: Vital Signs Temp Pulse Pulse Resp BP BP Pulse Ox 04/09/22 11:00 04/09/22 08:00 128 H 100 04/09/22 07:23 97.7 F 124 H 30 H 118/73 100 04/09/22 00:00 110 H 04/08/22 20:00 120 H 04/09/22 04:00 120 H 04/09/22 04:00 123 H 29 H 108/35 L 99 04/09/22 00:00 97.9 F 116 H 22 114/68 100 04/08/22 20:00 98.3 F 120 H 22 129/71 99 04/08/22 16:00 126 H 04/08/22 16:00 97.8 F 126 H 24 129/71 99 04/08/22 12:00 110 H 04/08/22 12:00 98.3 F 117 H 22 127/64 100 FiO2 04/09/22 11:00 30 04/09/22 08:00 04/09/22 07:23 04/09/22 00:00 04/08/22 20:00 04/09/22 04:00 04/09/22 04:00 04/09/22 00:00 04/08/22 20:00 04/08/22 16:00 04/08/22 16:00 04/08/22 12:00 04/08/22 12:00 Intake and Output 04/08/22 04/09/22 04/09/22 19:59 03:59 11:59 Intake Total 1625 / 3250 1625 / 3250 Output Total 550 / 2400 0 / 2400 1850 / 2400 Balance 1075 / 850 0 / 850 -225 / 850 Intake: Intake, Oral Amount 420 / 420 0 / 420 Intake, Total IV Amount 1205 / 2830 1625 / 2830 Cefepime HCl 1 gm In 0.9 % 50 / 100 50 / 100 Sodium Chloride 50 ml @ 100 mls /hr IV Q12H [facility] Rx#:[id number] Metronidaz/Sod Chl 500 mg In 100 / 300 200 / 300 100 ml @ 100 mls/hr IV Q8H [facility] Rx#:[id number] Ringers Solution,Lactated 1,000 1055 / 2180 1125 / 2180 ml @ 125 mls/hr IV .Q8H [facility] Rx #:[id number] Vancomycin HCl 750 mg In 0.9 % 250 / 250 Sodium Chloride 250 ml @ 125 mls/hr IV Q24H QUEEN[facility] Rx#:[id number] Output: Output, Urine Amount 550 / 2150 0 / 2150 1600 / 2150 Output, Urine Amount (Catheter) 250 / 250 Hernandez 250 / 250 Other: Number of Voids 0 Number of Unmeasured Voids 0 0 0 Weight 99 lb 9.6 oz Patient Weight 04/09/22 11:59 Weight 99 lb 9.6 oz Laboratory Results - last 24 hr 04/08/22 14:14: POC Glucose 153 H 04/08/22 16:36: POC Glucose 204 H 04/08/22 20:16: POC Glucose 136 H 04/09/22 05:50: POC Glucose 192 H 04/09/22 08:02: POC Glucose 206 H 04/09/22 08:53: Specimen Source Left radial, O2 % Room air, Sidney Test Patient unable 04/09/22 09:29: WBC 32.1 H* D, RBC 3.78 L, Hgb 11.0 L, Hct 35.7 L, MCV 94.5, MCH 29.2, MCHC 30.9 L, RDW 16.7, Plt Count 301 D, MPV 8.2, Neut % (Auto) 92.9 H, Lymph % (Auto) 2.8 L, [place] % (Auto) 3.5, Eos % (Auto) 0.1, Baso % (Auto) 0.6, Neut # (Auto) 29.9 H, Lymph # (Auto) 0.9, [place] # (Auto) 1.1 H, Eos # (Auto) 0.0, Baso # (Auto) 0.2, Total Counted 100, Neutrophils % (Manual) 90 H, Lymphocytes % (Manual) 6 L, Monocytes % (Manual) 4, Platelet Estimate Normal, Hypochromasia 2+, Poikilocytosis 1+, Tear Drop Cells 1+, [place] Cells 1+ 04/09/22 09:29: Sodium 147 H, Potassium 5.3 H D, Chloride 118 H, Carbon Dioxide < 5 L* D, Anion Gap 29.3 H, BU
--- NOTE | 2022-04-09 11:45 | XR_ITS ---
PROCEDURE INFORMATION: Exam: XR Chest Exam date and time: 04/09/2022 11:16 AM Age: 51 years old Clinical indication: Other: Change in respiratory status; Prior surgery TECHNIQUE: Imaging protocol: Radiologic exam of the chest. Views: 1 view. COMPARISON: CR XR CHEST PORTABLE 04/06/2022 2:33 PM FINDINGS: Tubes, catheters and devices: Transvenous pacemaker leads in the heart Lungs: Unremarkable. No consolidation. Pleural spaces: Unremarkable. No pleural effusion. No pneumothorax. Heart/Mediastinum: Unremarkable. No cardiomegaly. Bones/joints: Unremarkable. IMPRESSION: No acute process
--- NOTE | 2022-04-09 13:05 | P.PN_ITS ---
Subjective *Date: 04/09/22 *Time: 13:05 Interval history: Patient is not doing well and has declined in mental status and medical condition since this AM. Now on BIPAP and blood pressure support. Ortho Exam (Inpt) Vital signs and Labs for Last 24 Hours: Temp Pulse Resp BP Pulse Ox FiO2 97.7 F 128 H 30 H 118/73 100 30 04/09/22 07:23 04/09/22 08:00 04/09/22 07:23 04/09/22 07:23 04/09/22 08:00 04/09/22 11:00 Laboratory Results - last 24 hr 04/08/22 14:14: POC Glucose 153 H 04/08/22 16:36: POC Glucose 204 H 04/08/22 20:16: POC Glucose 136 H 04/09/22 05:50: POC Glucose 192 H 04/09/22 08:02: POC Glucose 206 H 04/09/22 08:53: Specimen Source Left radial, O2 % Room air, Sidney Test Patient unable 04/09/22 09:29: WBC 32.1 H* D, RBC 3.78 L, Hgb 11.0 L, Hct 35.7 L, MCV 94.5, MCH 29.2, MCHC 30.9 L, RDW 16.7, Plt Count 301 D, MPV 8.2, Neut % (Auto) 92.9 H, Lymph % (Auto) 2.8 L, [place] % (Auto) 3.5, Eos % (Auto) 0.1, Baso % (Auto) 0.6, Neut # (Auto) 29.9 H, Lymph # (Auto) 0.9, [place] # (Auto) 1.1 H, Eos # (Auto) 0.0, Baso # (Auto) 0.2, Total Counted 100, Neutrophils % (Manual) 90 H, Lymphocytes % (Manual) 6 L, Monocytes % (Manual) 4, Platelet Estimate Normal, Hypochromasia 2+, Poikilocytosis 1+, Tear Drop Cells 1+, Yonas Cells 1+ 04/09/22 09:29: Sodium 147 H, Potassium 5.3 H D, Chloride 118 H, Carbon Dioxide < 5 L* D, Anion Gap 29.3 H, BUN 13 D, Creatinine 0.90, Estimated Creat Clear 54, Estimated GFR 67, Est GFR ( Amer) 81, Glucose 231 H, Calcium 9.9 I & O for Labs for Last 24 Hours: Intake & Output 04/06/22 04/07/22 04/08/22 04/09/22 23:59 23:59 23:59 23:59 Intake Total 2505 / 4035 3515 / 3515 1625 / 1625 Output Total 200 / 200 1550 / 2150 2150 / 2150 2200 / 2200 Balance -200 / -200 955 / 1885 1365 / 1365 -575 / -575 Weight 96 lb 4 oz 100 lb 1.438 oz 101 lb 3.075 oz 99 lb 9.6 oz Microbiology Reports for the Last 24 Hours: Microbiology 04/06/22 14:45 Blood - Other Blood Culture - Preliminary 04/06/22 15:15 Urine,Catheterized Urine Culture - Final NO GROWTH AFTER 48 HOURS 04/06/22 13:50 Blood - Other Blood Culture - Preliminary NO GROWTH AFTER 48 HOURS Findings:: LLE: wound VAC in place. No surrounding errythema. No leaks. No drainage. Assessment and Plan *Assessment and plan (1) Altered mental status: Status: Acute Category: Medical Code(s): R41.82 - Altered mental status, unspecified (2) Sepsis: Status: Acute Category: Medical Code(s): A41.9 - Sepsis, unspecified organism (3) Status post below-knee amputation of left lower extremity: Status: Acute Category: Surgical Code(s): Z89.512 - Acquired absence of left leg below knee Plan IV antibiotics adjusted. Wound VAC in place and with good suction. Will plan on twice a week VAC changes. Patient receiving agreesive respiratory support and blood pressure support. Prognosis guarded.
[2022-04-09 15:10] LABS: POC Glucose,Bedside 284 (70-110)
--- NOTE | 2022-04-09 15:26 | PC.NURSE ---
Late Entry: 1037 Dr Maldonado returned page at this time. updated on change in patient status/condition. pt has become more obtunded since speaking with Dr Nickerson this am. RR in the 30-40's hr 120'snew and critical lab results reviewed over the phone with Dr Maldonado. informed him that pt has now developed rhonchi at this time. new orders at this time: EKG, stat chest xray and place pt on bipap. 1040 respiratory notified of bipap order, ekg obtained at this time as well. 1100 Dr Maldonado at bedside, order given to ricardo strong RN for 40mg iv lasix. stat chest xray being obtained at this time. pt currently on bipap. 1103 pt bp reassessed r/t changes in pt condition bp 75/41. order received from Dr Maldonado to start pt on levophed drip for map > 65. Levo drip started at 20mcg at this time. [address] maldonado if he would like to repeat an abg on pt after being on bipap. per md repeat abg after 30 mins on bipap. 1125 bp 78/26 1127 Levophed drip increased to 40 mcg r/t bp 53/24 1130 bp 107/57 1132 bp 118/48 1150 bp 64/18 1152 bp 86/46 levophed increased to 50mcg 1157 bp 85/34 1200 bp 66/21 1209 bp 112/[address] Nickerson [address] Nickerson in regards to pt requiring 2nd pressor r/t bp/map remaining low. Haris in pharmacy reccommends vasopressin. updated MD on changes in pt condition, pt bipap Fio2% has been increased to 80% r/t pt sats being low. MD states that he has just received an update from Dr Maldonado about pt. 1213 bp 95/26 1216 bp 93/26 1220 bp 85/28, vasopressin started at this time at 0.01 units/min 1222 bp 92/29 called and spoke with pt daughter. informed her that dr Maldonado was contacted and made rounds on the pt at approx 1100. pt was placed on bipap per orders, and had to be started on levophed drip r/t low bp. pt has since had to have a 2nd drip added to increase pt blood pressure. pt is extremely ill at this time. 1224 bp 106/31 1226 bp 85/25 1236 bp 95/25 1240 bp 75/20 vasopressin increased to 0.02units/min 1242 bp 65/29 1254 bp 79/31 1258 bp 63/27 1300 bp 67/38 1302 bp 97/41 1304 bp 94/44. pt iv in left upper arm infiltrated and was dc. several staff members attempted to restart pt iv. pt assessed for iv site with US as well. all were unsuccessful. 1316 it was noted will locating iv that pt had vomited in her bipap mask. emesis was noted to be black. pt heart rate declined from 110 to 71. 1322 bp 97/71 hr 60 rr 22 1323 pt heart rate maintained in the 60-70 range. rapid response called at this time. [address] Brewer arrived at bedside. Md updated on pt history and status changes this shift. notified of pt having black emesis and that pt had received 2 units prbc on but had no apparent cause of anemia. pt pulse weak and barely palpable. pt prepped for intubation. order received for Etomidate 30mg and roccuronium 100mg. ER Md also asked for supplied to insert central line. 1335 unable to get bp with monitor. pt bp was noted to be 70/doppler. pt hr continued to decline into the upper 50's. 1340 pt had change on monitor, pea with pacer, no palpable pulse, breathing agonal. Johanna Ivory called.
--- NOTE | 2022-04-09 17:24 | PC.NURSE ---
1340 Code Blue, pt agonal breathing, pea with pacer spikes, cpr started 1342 pulse check, no pulse. cpr resumed 1343 attempting intubation at this time by Dr Brewer, order received for etomidate 30mg and roccuronium (medication was prepped during rapid red, but was not administered r/t pt arresting). pt intubated with 6.o ETT. 1343 Dr Nickerson paged at this time to update that pt has arrested. 1343 Epi 1mg given 1344 H's/T's reviewed 1345 Sodium Bicarb 1 amp ordered and given. 1346 Pulse check, no pulse, CPR resumed 1346 Epi 1mg given 1349 Epi 1mg given 1350 pulse check, no pulse, CPR resumed 1352 Pulse Check, no pulse, CPR resumed 1353 Epi 1mg given 1355 Pulse check, no pulse, CPR resumed 1355 Calcium 2 Gram ordered and given 1357 Pulse Check, no pulse, CPR resumed 1404 US of heart performed at this time. Cardiac Standstill per Dr Brewer. 1405 pulse check, no pulse 1406 Time of 1413 Family contacted about pt status change. 1451 ABHIJIT contacted. ruled out for donation Dianne Thomas [phone]
--- NOTE | 2022-04-09 19:37 | EXP.RR ---
Acute Rapid Response Note Subjective Date Responded: 04/09/22 Time Responded: 13:50 Provider Note: Responded to a rapid rad on the floor. Patient on BiPAP and minimally responsive. Nursing requesting intubation for further airway management. They confirm the patient is a full code. Objective Findings: Vital Signs - Last 4 Hours Temperature 99.5 F 04/09/22 11:14 Temperature Source Rectal 04/09/22 11:14 Pulse Rate 60 04/09/22 13:30 Respiratory Rate 18 04/09/22 13:30 TAR Vitals Timing 1 Hour Post Infusion 04/07/22 18:00 Blood Pressure 70/00 L 04/09/22 13:30 Blood Pressure Mean 23 04/09/22 13:30 Blood Pressure Source Manual Cuff/Doppler 04/09/22 13:30 Blood Pressure Position Supine 04/09/22 13:30 02 Sat by Pulse Oximetry 90 L 04/09/22 13:04 Oxygen Delivery Method 04/09/22 13:30 Lab Results for Past 12 Hours 04/09/22 12:47: POC Glucose 284 H 04/09/22 09:29: Sodium 147 H, Potassium 5.3 H D, Chloride 118 H, Carbon Dioxide < 5 L* D, Anion Gap 29.3 H, BUN 13 D, Creatinine 0.90, Estimated Creat Clear 54, Estimated GFR 67, Est GFR ( Amer) 81, Glucose 231 H, Calcium 9.9 04/09/22 09:29: WBC 32.1 H* D, RBC 3.78 L, Hgb 11.0 L, Hct 35.7 L, MCV 94.5, MCH 29.2, MCHC 30.9 L, RDW 16.7, Plt Count 301 D, MPV 8.2, Neut % (Auto) 92.9 H, Lymph % (Auto) 2.8 L, [place] % (Auto) 3.5, Eos % (Auto) 0.1, Baso % (Auto) 0.6, Neut # (Auto) 29.9 H, Lymph # (Auto) 0.9, [place] # (Auto) 1.1 H, Eos # (Auto) 0.0, Baso # (Auto) 0.2, Total Counted 100, Neutrophils % (Manual) 90 H, Lymphocytes % (Manual) 6 L, Monocytes % (Manual) 4, Platelet Estimate Normal, Hypochromasia 2+, Poikilocytosis 1+, Tear Drop Cells 1+, [place] Cells 1+ 04/09/22 08:53: Specimen Source Left radial, O2 % Room air, [place] Test Patient unable 04/09/22 08:02: POC Glucose 206 H My Orders Category Date Time Status Calcium Chloride [Calcium Chloride 1gm/10mL Syringe] Med 04/09/22 14:55 Discontinued 1 gm IV .STK-MED ONE Calcium Chloride [Calcium Chloride 1gm/10mL Syringe] Med 04/09/22 13:40 Discontinued 2 gm IV ONCE ONE EPINEPHrine [EPINEPHrine 0.1mg/mL 10mL syringe] Med 04/09/22 13:40 Discontinued 4 mg IV ONCE ONE EPINEPHrine [EPINEPHrine 1mg/mL amp] Med 04/09/22 14:54 Discontinued 1 mg IV .STK-MED ONE Etomidate [Amidate 40mg/20mL vial] Med 04/09/22 14:55 Discontinued 30 mg IV .STK-MED ONE Etomidate [Amidate 40mg/20mL vial] Med 04/09/22 13:40 Discontinued 30 mg IV ONCE ONE Sodium Bicarbonate [Sodium Bicarbonate 8.4% 50mL Med 04/09/22 14:55 Discontinued Syringe] 50 meq IV .STK-MED ONE Sodium Bicarbonate [Sodium Bicarbonate 8.4% 50mL Med 04/09/22 13:40 Discontinued Syringe] 50 meq IV ONCE ONE Rapid Response Exam General General appearance: lethargic and other (Not alert. In respiratory distress.) Head Head exam: atraumatic Eye Eye exam: Absent PERRL Chest Chest inspection: Present normal inspection and symmetric chest wall rise Respiratory Respiratory exam: Present normal lung sounds bilaterally Cardiovascular Cardiovascular exam: Present regular rate Abdominal Exam Abdominal exam: Present soft; Absent distention Neurological Exam Neurological exam: Absent alert or oriented X3 Psychiatric Psychiatric exam: Present other (Unresponsive) Skin Skin exam: Present warm RR Procedures/Assess/Plan Bedside Intubation Time Out Performed: Yes Sedative: Etomidate Mg given: 30 Laryngoscope: fiber optic video scope Tube size: 6 Tube uncuffed: Yes Secured location: lips Placement confirmation: visualized tube passing through cords, equal breath sounds bilaterally, no breath sounds over epigastrium and confirmation by capnometry Intubation Complications: difficult intubation (Attempted 7.0 cuffed tube first and unable to pass.) (1) Altered mental status: Status: Acute (2) Sepsis: Status: Acute (3) Status post below-knee amputation of left lower extremity: Status: Acute Assessment and plan all Dx Ass
--- NOTE | 2022-04-09 19:39 | PC.NURSE ---
FAMILY READY FOR [facility] TO NOTIFY [facility]. HOME NOTIFIED BY Alok CUELLO RN.
--- NOTE | 2022-04-09 20:34 | PC.NURSE ---
Pt off the floor with Gallo @ 2032.
[2022-04-10 04:51] LABS: ABG HCO3 5.2 mmhg (22.0-26.0); ABG PCO2 15.1 mmhg (35.0-45.0); ABG PH 7.15 mmol/L (7.35-7.45); ABG PO2 58.4 mmhg (80-100); ABG TCO2 5.7 mmhg (23-27)
[2022-04-10 04:52] LABS: ABG Base Excess -23.6 mmol/L (-2.4-2.3); ABG Oxygen Saturation 84 % (90-100); Oxygen ROOM AIR %; Source L BRACHIAL
[2022-04-11 10:17] LABS: Peripheral Smear Review Scanned Result
--- NOTE | 2022-04-12 20:46 | EXP.DC.SUM ---
General Admission date:: 04/06/22 Discharge date: 04/09/22 HPI HPI HPI: Cristina is a 51-year-old female patient status post left below knee amputation admitted to the acute inpatient service after presenting to the [facility] emergency department yesterday 04/06/2022 secondary to concern for sepsis. History obtained from emergency department and primary care documentation as patient continues to have altered mental status. Per ER documentation, patient was brought to the emergency department via EMS after a friend was unable to wake her up/noticed the patient had altered mental status yesterday morning. She is status post left below the knee amputation on 02/14/2022 and has had multiple irrigation and debridements since that time performed by Dr. Diop. She was most recently admitted to [facility] from 03/15/20 - 03/23/2022 and discharged home with home health services after declining placement. She has been receiving home health services for wound VAC changes and has been on oral Zyvox since her discharge from the hospital. Today the patient is lying in bed comfortably. She is able to answer most of my questions appropriately, but continues to seem confused. She denies any particular symptoms or concerns at this time. Hospital Course Hospital Course Hospital Course: The patient was admitted with sepsis and a UTI. She was started on IV fluids and IV antibiotics. It was felt her prognosis was guarded. By 04/07/2022 she was only slightly more awake and alert. Her norepinephrine drip had been turned off and she continued receiving IV fluids at 125 an hour. She remained tachycardic but had not received any p.o. meds due to altered mental status. Her white blood cell count had decreased, but so had her hemoglobin. Her chest x-ray showed nothing acute. She was transfused with 2 units of packed red blood cells and started back on her p.o. medications for better heart rate control. She was continued on IV Vancomycin, Flagyl, sliding scale insulin, and heparin. She was seen in consultation by orthopedics and they wanted to continue the wound VAC changes with physical therapy. They also wanted to continue empiric IV antibiotics. It was felt again that the patient would benefit from placement as she would need continued IV antibiotics and wound care. 04/08/2022, she was slightly more awake, but still remained confused at times. She was trying to eat and drink but had difficulty feeding herself. Her H&H improved with transfusion. Her heart rate was elevated and an EKG was ordered and cardiology was consulted. Cardiology saw the patient and they felt she was tachycardic due to sepsis. As long as her heart rate remained under 130 bpm, they recommended no changes to her medications. They wanted her continued on Entresto as well as Jardiance. They did recommend a CT of the head without contrast. This was done and was negative. By 04/09/2022, her condition had declined significantly. She had become less responsive, more tachycardic, and more tachypneic. Her blood pressure declined and Levophed had to be restarted. Dr. Nickerson on-call was consulted and ordered changes in her IV antibiotics as her white count was over 30,000. A blood gas was obtained and showed a pH of 7.1 with a low CO2 in order to achieve a PO2 of 58. BiPAP was ordered. She had a repeat CT of the head, which was also negative. She was given 40 mg of Lasix. A rapid response was called on 04/09/2022 at 1350. She was on BiPAP and minimally responsive and nursing requested intubation for further airway management as the patient was a full code. Boston Osman was called to the bedside for intubation. She was on Levophed and vasopressin. The pharmacy stated intubation medications were noncompatible with other medications that were currently running. She only had a 22-gauge IV in her left forearm and he was getting ready to place a right IJ central line whe
== END 2022-04-09 20:34 | disposition expired | DRG 872 ==
LOC: ER 14:28 → 2ND 16:42
PROVIDERS: Family Medicine; Nurse Practitioner Family; Admitting Provider Family Medicine; Emergency Provider Student in an Organized Health Care Education/Training Program; Visit Provider Family Medicine
DX: A41.9 Sepsis, unspecified organism (principal); N39.0 Urinary tract infection, site not specified; N17.9 Acute kidney failure, unspecified; I50.22 Chronic systolic (congestive) heart failure; Z79.4 Long term (current) use of insulin; I27.20 Pulmonary hypertension, unspecified; I25.5 Ischemic cardiomyopathy; E86.0 Dehydration; I25.10 Atherosclerotic heart disease of native coronary artery without angina pectoris; E78.5 Hyperlipidemia, unspecified; I11.0 Hypertensive heart disease with heart failure; Z86.73 Personal history of transient ischemic attack (TIA), and cerebral infarction without residual deficits; Z89.511 Acquired absence of right leg below knee; F17.210 Nicotine dependence, cigarettes, uncomplicated; I08.0 Rheumatic disorders of both mitral and aortic valves; Z95.810 Presence of automatic (implantable) cardiac defibrillator; E11.51 Type 2 diabetes mellitus with diabetic peripheral angiopathy without gangrene; E11.42 Type 2 diabetes mellitus with diabetic polyneuropathy; Z95.5 Presence of coronary angioplasty implant and graft; E78.2 Mixed hyperlipidemia; Z71.6 Tobacco abuse counseling
CPT/HCPCS: 31500; 36415; 70450; 71045; 80048; 80053; 81001; 82803; 82962; 83605; 83690; 83735; 84145; 85007; 85014; 85018; 85025; 85610; 86140; 86850; 87040; 87077; 87086; 87186; 93005; 94660; 97163; 99291; 99292; C9803; J0692; J2020; J3370; P9016; U0003; U0005